=== PATIENT | male | born 1955 | race Caucasian/White ===

== ENCOUNTER 2016-07-02 14:00 | Inpatient (IN) | payer OTHER ==
--- NOTE | 2016-07-02 14:04 | PDOC ---
History of Present Illness - General History Source: Patient, Old Records Exam Limitations: No Limitations <Grace Mott - Last Filed: 07/02/16 16:08> <Arnaldo Drake - Last Filed: 07/02/16 16:43> - General Chief Complaint: Palpitations Stated Complaint: FAST HEART BEAT Time Seen by Provider: 07/02/16 14:04 - History of Present Illness Initial Comments: 07/02/16 14:26 The patient is a 61 old male, with a significant past medical history of anemia , COPD, HTN, hyperlipidemia, diabetes, CAD s/p open heart surgery, stent placement, bypass surgery, pacemaker, and ESRD (on dialysis , , Sat), who presents to the emergency department with right sided chest pressure, palpitations, and SOB since yesterday. The patient states that his symptoms began while he was at dialysis yesterday. He also admits to some generalized weakness and reports that he feels dizzy. The patient denies fever, chills, headache, diaphoresis, nausea or vomiting. Allergies: None reported. Past Surgical History: Stent placement , Open heart surgery, Bypass surgery, Cholecystectomy. Social History: Non smoker. Denies alcohol or drug use. PCP: Dr. Sutton Gis Professor: At [facility] (Grace Mott) Past History <Grace Mott - Last Filed: 07/02/16 16:08> - Past Medical History Anemia: Yes Asthma: Yes (HX BRONCHITIS, COPD) Cancer: No Cardiac Disorders: Yes (S/P open heart SX c/ bypass, stent placement) CVA: Yes (no residual) COPD: No CHF: Yes (CAD) Dementia: No Diabetes: Yes (DIABETES TYPE 2) Dialysis: Yes (SUN-WED SUN) GI Disorders: Yes (reflux) Disorders: Yes (ESRD-DIALYSIS ES,,SAT) HTN: Yes Hypercholesterolemia: Yes Liver Disease: No Suicide Attempt (Hx): No Seizures: No Thyroid Disease: No - Surgical History Abdominal Surgery: Yes Appendectomy: No Cardiac Surgery: Yes (Stent placement, Open heart SX, BYpass SX) Cholecystectomy: Yes Lung Surgery: No Neurologic Surgery: No Orthopedic Surgery: No - Immunization History Td Vaccination: Yes Immunization Up to Date: Yes - Psycho/Social/Smoking Cessation Hx Anxiety: Yes Suicidal Ideation: No Smoking Status: No Smoking History: Never smoked Years of Tobacco Use: 0 Have you smoked in the past 12 months: No Number of Cigarettes Smoked Daily: 0 Cigars Per Day: 0 Hx Alcohol Use: No Drug/Substance Use Hx: No Substance Use Type: None Hx Substance Use Treatment: No <Arnaldo Drake - Last Filed: 07/02/16 16:43> - Past Medical History Allergies/Adverse Reactions: Allergies Allergy/AdvReac Type Severity Reaction Status Date / Time No Known Drug Allergies Allergy Verified 04/27/16 10:25 Home Medications: Ambulatory Orders Insulin Glargine,Hum.rec.anlog [Lantus (10mL VIAL) -] 12 units SQ HS 09/13/14 Levothyroxine [Synthroid -] 75 mcg PO DAILY 09/13/14 Carvedilol 6.25 mg PO BID 04/27/16 Sodium Chloride Tablet - 650 mg PO DAILY 04/27/16 Sucroferric Oxyhydroxide [Velphoro] 500 mg PO TID 04/27/16 Midodrine HCl 5 mg PO BID #0 04/29/16 Sevelamer Carbonate [Renvela -] 1,600 mg PO TIDCM tab 04/29/16 Cardiac Specific PMH - Complaint Specific PMHX Pacemaker: Yes <Arnaldo Drake - Last Filed: 07/02/16 16:43> Review of Systems - Review of Systems Able to Perform ROS?: Yes Constitutional: Yes: Weakness HEENTM: No: Symptoms Reported, See HPI, Eye Pain, Blurred Vision, Tearing, Recent change in vision, Double Vision, Cataracts, Ear Pain, Ocular Prothesis, Ear Discharge, Nose Pain, Nose Congestion, Tinnitus, Nose Bleeding, Hearing Loss , Throat Pain, Throat Swelling, Mouth Pain, Dental Problems, Difficulty Swallowing, Mouth Swelling, Other Respiratory: Yes: Shortness of Breath Cardiac (ROS): Yes: Palpitations, Other (Right sided chest pressure) ABD/GI: No: Symptoms Reported, See HPI, Abdominal Distended, Abd. Pain w/ defecation, Blood Streaked Bowels, Constipated, Diarrhea, Difficulty Swallowing , Nausea, Poor Appetite, Poor Fluid Intake, Rectal Bleeding, Vomiting, Indigestion, Abdominal cramping, Tarry Stools, Other : No: Symptoms Reported, See HPI, Burning, Dysuria, Discharge, Frequency, Flank Pain, Hematuria, Incontinence, Pain, Urgency, Testicular Mass, Testicular Swelling, Lesions, Testicular Pain, Other Musculoskeletal: No: Symptoms Reported, See HPI, Back Pain, Gout, Joint Pain, Joint Swelling, Muscle Pain, Muscle Weakness, Neck Pain, Joint Stiffness, Other Integumentary: No: Symptoms Reported, See HPI, Bruising, Change in Color, Change in Hair/Nails, Dryness, Erythema, Flushing, Lesions, Lumps, Pallor, Pruritus, Rash, Sweating, Other Neurological: Yes: Dizziness Psychiatric: No: Anxiety, Depression, Frequent Crying, Stressors, Sleep Pattern Change, Emotional Problems, Mood Swings, Change in Appetite, Other Endocrine: No: Symptoms Reported, See HPI, Excessive Sweating, Flushing, Intolerance to Cold, Intolerance to Heat, Increased Hunger, Increased Thirst, Increased Urine, Unexplained Weight Gain, Unexplained Weight Loss, Change in Weight, Other Hematologic/Lymphatic: No: Symptoms Reported, See HPI, Anemia, Blood Clots, Easy Bleeding, Easy Bruising, Bleeding Diathesis, Lymph Node Abnormalities, Swollen Glands, Other All Other Systems: Reviewed and Negative <Grace Mott - Last Filed: 07/02/16 16:08> *Physical Exam - Physical Exam General Appearance: Yes: Nourished, Appropriately Dressed HEENT: positive: EOMI, DINAH, Normal ENT Inspection, Normal Voice, Symmetrical, TMs Normal, Pharynx Normal Neck: positive: Trachea midline, Supple Respiratory/Chest: positive: Lungs Clear, Normal Breath Sounds Cardiovascular: positive: Tachycardia, Irregularly Irregular Gastrointestinal/Abdominal: positive: Other (Ascites. Umbilical hernia and diastasis recti noted.) Musculoskeletal: positive: Normal Inspection Extremity: positive: Normal Capillary Refill, Normal Inspection, Normal Range of Motion, Pelvis Stable Integumentary: positive: Normal Color, Dry, Warm Neurologic: positive: assistant pressman II-XII NML intact, Fully Oriented, Alert, Normal Mood/ Affect, Normal Response, Motor Strength 5/5 <Grace Mott - Last Filed: 07/02/16 16:08> - Vital Signs Last Vital Signs Temp Pulse Resp BP Pulse Ox 98.1 F 115 H 21 111/68 100 07/02/16 14:02 07/02/16 14:02 07/02/16 14:02 07/02/16 14:02 07/02/16 14:02 Heart Score/ECG Review #1 ECG reviewed & interpreted by me at: 14:00 (Vent Rate: 109 bpm. Atrial fibrillation with rapid ventricular response with premature aberrantly conducted complexes. Left axis deviation. Right bundle branch block. Septal farct, age undetermined. T wave abnormality, consider lateral ischemia or digitalis effect. Unchanged from prior EKG (02/09/2016). ) <Grace Mott - Last Filed: 07/02/16 16:08> ED Treatment Course - LABORATORY CBC & Chemistry Diagram: 07/02/16 14:40 07/02/16 14:40 <Grace Mott - Last Filed: 07/02/16 16:08> - LABORATORY CBC & Chemistry Diagram: 07/02/16 14:40 07/02/16 14:40 <Arnaldo Drake - Last Filed: 07/02/16 16:43> - ADDITIONAL ORDERS Additional order review: Laboratory Results 07/02/16 07/02/16 14:40 14:40 Sodium 138 Potassium 3.8 D Chloride 97 L Carbon Dioxide 25 D Anion Gap 16 BUN 48 H D Creatinine 6.6 H D Creat Clearance w eGFR 8.58 Random Glucose 237 H D Calcium 9.0 Total Bilirubin 0.4 D AST 20 D ALT 19 D Alkaline Phosphatase 81 D Creatine Kinase 28 L Troponin I 0.07 D Total Protein 8.1 Albumin 4.0 07/02/16 14:40 RBC 3.77 L MCV 91.3 MCHC 32.1 RDW 15.9 MPV 8.8 Neutrophils % 74.8 Lymphocytes % 8.9 Monocytes % 12.1 H Eosinophils % 3.9 Basophils % 0.3 - RADIOLOGY Radiology Studies Ordered: Category Date Time Status CHEST X-RAY PORTABLE* [RAD] Stat Radiology 07/02/16 14:11 Completed - Medications Given in the ED: ED Medications Discontinued Medications Generic Name Dose Route Start Last Admin Trade Name Freq PRN Reason Stop Dose Admin Acetaminophen 650 mg 07/02/16 15:48 07/02/16 15:52 Tylenol - PO 07/02/16 15:49 650 mg ONCE ONE Administration Progress Note <Grace Mott - Last Filed: 12/25/16 16:08> <Arnaldo Drake - Last Filed: 07/02/16 16:43> - Progress Note Progress Note: CXR shows defibrillator and unchanged Spoke with Hospitalist Dr. Lind will admit to observation/Telemetry Hospitalist will contact Gis Professor to see pt Spoke with Dr. Rubin covering for Dr. Sutton, wants pt admitted to observation Pt in agreement with plan (Arnaldo Drake) Medical Decision Making <Grace Mott - Last Filed: 07/02/16 16:08> <Arnaldo Drake - Last Filed: 07/02/16 16:43> - Medical Decision Making 07/02/16 14:56 EXAM: RAD/CHEST X-RAY PORTABLE Reviewed By: Dr. Arnaldo Nuno IMPRESSION: No significant change from prior study (04/27/2016). Called patient's PCP, Dr. Sutton, at Office at 15:58. Referred to answering service. Dr. Ochoa returned call at 16:01, case discussed. (Grace Mott) *DC/Admit/Observation/Transfer <Grace Mott - Last Filed: 07/02/16 16:08> - Discharge Dispostion Admit: Yes <Arnaldo Drake - Last Filed: 07/02/16 16:43> Diagnosis at time of Disposition: Atrial fibrillation with rapid ventricular response, ESRD (end stage renal disease) - Discharge Dispostion Condition at time of disposition: Good - Referrals Referrals: Mandeep Sutton MD [Primary Care Provider] - - Attestations Scribe Attestion: 07/02/16 14:15 Documentation prepared by Grace Mott, acting as chief medical director for Arnaldo Drake MD/DO. (Grace Mott)
[2016-07-02 15:04] LABS: BASOPHIL 0.3 % (0-2.0); EOSINOPHIL 3.9 % (0-4.5); MCH 29.3 pg (25.7-33.7); MCHC 32.1 g/dl (32.0-35.9); MEAN CELL VOLUME 91.3 fl (80-96); MEAN PLT VOLUME 8.8 fl (7.5-11.1); NEUTROPHILS 74.8 % (42.8-82.8); PLATELET COUNT 70 K/MM3 (134-434); RDW 15.9 % (11.9-15.9); WHITE BLOOD COUNT 3.7 K/mm3 (4.0-10.0)
[2016-07-02 15:15] LABS: BILIRUBIN,TOTAL 0.4 mg/dl (0.2-1.0); CREATININE 6.6 mg/dl (0.6-1.3); TOT PROT 8.1 g/dl (6.4-8.3)
[2016-07-02 15:48] LABS: TROPONIN I (DFP) 0.07 ng/ml (0.03-0.50)
[2016-07-02] MEDS ORDERED: ACETAMINOPHEN 325 MG TABLET (FP) PO ONE (15:48)
[2016-07-02] MEDS ORDERED: ACETAMINOPHEN 325 MG TABLET (FP) ONE (15:50)
[2016-07-02] MEDS ORDERED: dilTIAZem HCL 30 MG TABLET (FP) PO ONE (18:26)
[2016-07-02] MEDS: MIDODRINE HCL 5 MG TABLET PO SCH (21:50)
[2016-07-02] MEDS ORDERED: INSULIN DETEMIR 100 UNITS/ML MDV SQ SCH (22:00)
[2016-07-02] MEDS ORDERED: SUCROFERRIC OXYHYDROXIDE 500 MG PO SCH (22:00)
[2016-07-02] MEDS ORDERED: CARVEDILOL 6.25 MG TABLET (FP) PO SCH (22:00)
[2016-07-02] MEDS ORDERED: ACETAMINOPHEN 325 MG TABLET (FP) PO PRN (22:24)
[2016-07-02] MEDS ORDERED: oxyCODONE HCL 5 MG TABLET PO ONE (23:50)
[2016-07-02] MEDS ORDERED: OXYCODONE/APAP 5/325MG COMBO TABLET PO PRN (23:50)
--- NOTE | 2016-07-02 23:56 | HP ---
CHIEF COMPLAINT: generalized weakness PCP: Herman, ED spoke with covering physician, requested hospitalist admit. cardiology Dr. Booth [phone] HISTORY OF PRESENT ILLNESS: This is a 61 year old male with a past medical history of anemia, COPD, HTN, HLD , DM, CVA, CAD s/p stent and CABG, PPM, ESRD who presented to the ED for generalized weakness, palpitations, R sided chest pressure and SOB for the past few days. Also had a syncopal episode 3d ago, became very weak during dialysis on and asked it to be terminated after 2-2.5h. Tolerated dialysis yesterday but was not feeling well. Upon exam pt with c/o generalized body aches. He states that this happens at times and he takes oxycodone 5/325 for it. ER course was notable for: (1) atrial fibrillation rate 110s (2) normal troponin (3) no changes on CXR Recent Travel: pt denies PAST MEDICAL HISTORY: anemia COPD HTN HLD DM with retinopathy CVA-no residual CAD s/p stent and CABG PPM/AICD ESRD PAST SURGICAL HISTORY: AV shunt right upper arm Social History: Smoking: Pt denies Alcohol: Pt denies Drugs: Pt denies Family History: mother age 65, unknown father age 85, old age, prostate CA Allergies No Known Drug Allergies Allergy (Verified 04/27/16 10:25) HOME MEDICATIONS: 3 Medication Instructions Recorded Insulin Glargine,Hum.rec.anlog 12 units SQ HS 09/13/14 [Lantus (10mL VIAL) -] Levothyroxine [Synthroid -] 75 mcg PO DAILY 09/13/14 Carvedilol 6.25 mg PO BID 04/27/16 Sodium Chloride Tablet - 650 mg PO DAILY 04/27/16 Sucroferric Oxyhydroxide [Velphoro] 500 mg PO TID 04/27/16 Midodrine HCl 5 mg PO BID #0 04/29/16 Sevelamer Carbonate [Renvela -] 1,600 mg PO TIDCM tab 04/29/16 REVIEW OF SYSTEMS CONSTITUTIONAL: Present: generalized weakness, malaise Absent: fever, chills, diaphoresis, loss of appetite, weight change HEENT: Absent: rhinorrhea, nasal congestion, throat pain, throat swelling, difficulty swallowing, mouth swelling, ear pain, eye pain, visual changes CARDIOVASCULAR: Present: chest pain, syncope, palpitations, irregular heart rate Absent: lightheadedness, peripheral edema RESPIRATORY: Present: shortness of breath, dyspnea with exertion Absent: cough, orthopnea, wheezing, stridor, hemoptysis GASTROINTESTINAL: Absent: abdominal pain, abdominal distension, nausea, vomiting, diarrhea, constipation, melena, hematochezia GENITOURINARY: Absent: dysuria, frequency, urgency, hesitancy, hematuria, flank pain, genital pain MUSCULOSKELETAL: Absent: myalgia, arthralgia, joint swelling, back pain, neck pain SKIN: Absent: rash, itching, pallor HEMATOLOGIC/IMMUNOLOGIC: Absent: easy bleeding, easy bruising, lymphadenopathy, frequent infections ENDOCRINE: Absent: unexplained weight gain, unexplained weight loss, heat intolerance, cold intolerance NEUROLOGIC: Absent: headache, focal weakness or paresthesias, dizziness, unsteady gait, seizure, mental status changes, bladder or bowel incontinence PSYCHIATRIC: Absent: anxiety, depression, suicidal or homicidal ideation, hallucinations. PHYSICAL EXAMINATION Vital Signs - 24 hr 3 07/02/16 07/02/16 07/02/16 18:05 18:19 18:24 Temperature 98.2 F Pulse Rate 140 H 132 H 122 H Respiratory 18 Rate Blood Pressure 110/62 O2 Sat by Pulse Oximetry (%) 3 07/02/16 21:54 Temperature 97.7 F Pulse Rate 94 H Respiratory 20 Rate Blood Pressure 106/56 O2 Sat by Pulse 98 Oximetry (%) GENERAL: Awake, alert, and fully oriented, in no acute distress. HEAD: Normal with no signs of trauma. EYES: Pupils equal, round and reactive to light, extraocular movements intact left, sclera anicteric, conjunctiva clear. No lid lag. lazy eye noted right EARS, NOSE, THROAT: Ears normal, nares patent, oropharynx clear without exudates. Moist mucous membranes. NECK: Normal range of motion, supple without lymphadenopathy, JVD, or masses. LUNGS: Breath sounds equal, clear to auscultation bilaterally. No wheezes, and no crackles. No accessory muscle use. HEART:irregular rate and rhythm, normal S1 and S2 without rub or gallop. + murmur 5th ICS MCL ABDOMEN: Soft, nontender, distended, normoactive bowel sounds, no guarding, no rebound, no masses. No hepatomegaly or splenomegaly. + ?ascites MUSCULOSKELETAL: Normal range of motion at all joints. No bony deformities or tenderness. No CVA tenderness. UPPER EXTREMITIES: 2+ pulses, warm, well-perfused. No cyanosis. No clubbing. Cap refill <2 seconds. No peripheral edema. LOWER EXTREMITIES: 2+ pulses, warm, well-perfused. No calf tenderness. No peripheral edema. NEUROLOGICAL: Cranial nerves II-XII intact. Normal speech. Normal gait. PSYCHIATRIC: Cooperative. Good eye contact. Appropriate mood and affect. SKIN: Warm, dry, normal turgor, no rashes or lesions noted. Laboratory Results - last 24 hr 3 07/02/16 07/02/16 07/02/16 14:40 14:40 14:40 WBC 3.7 L D RBC 3.77 L Hgb 11.1 L Hct 34.4 L MCV 91.3 MCHC 32.1 RDW 15.9 Plt Count 70 L MPV 8.8 Neutrophils % 74.8 Lymphocytes % 8.9 Monocytes % 12.1 H Eosinophils % 3.9 Basophils % 0.3 Sodium 138 Potassium 3.8 D Chloride 97 L Carbon Dioxide 25 D Anion Gap 16 BUN 48 H D Creatinine 6.6 H D Creat Clearance w eGFR 8.58 POC Glucometer Random Glucose 237 H D Calcium 9.0 Total Bilirubin 0.4 D AST 20 D ALT 19 D Alkaline Phosphatase 81 D Creatine Kinase 28 L Troponin I 0.07 D B-Natriuretic Peptide 32978.45 H Total Protein 8.1 Albumin 4.0 3 07/02/16 21:26 WBC RBC Hgb Hct MCV MCHC RDW Plt Count MPV Neutrophils % Lymphocytes % Monocytes % Eosinophils % Basophils % Sodium Potassium Chloride Carbon Dioxide Anion Gap BUN Creatinine Creat Clearance w eGFR POC Glucometer 281 Random Glucose Calcium Total Bilirubin AST ALT Alkaline Phosphatase Creatine Kinase Troponin I B-Natriuretic Peptide Total Protein Albumin echo 04/28/16 with LV systolic fxn mod / severely reduced; akinesis of basal and mid anteroseptum, apical anterior and apical inferior mustafa; L atrium moderately dilated; mil to mod mitral annular calcification, mild mitral regurgitaion, mod tricuspid regurg, RV systolic pressure elevated; mild aortic sclerosis. ECG: afib with RVR, RBB, nonspecifec ST/T wave abnormality, QTC 452 CXR: Impression: no significant change ASSESSMENT/PLAN: 61yM with a past medical history of anemia, COPD, HTN, HLD, DM, CVA, CAD s/p stent and CABG, PPM, ESRD who presented to the ED for generalized weakness, palpitations, R sided chest pressure and SOB for the past few days. He was noted to be in new onset afib with RVR in the ED. He is being admitted for further treatment and monitoring. New onset atrial fibrillation - cardizem 30mg given po x 1 with some decline in HR, start 30mg Q8H, hold if SBP less than 100 - cont home coreg - [employer] contacted for AICD interrogation. Spoke with garry Heard who will come around 830am - cardiology consult - serial cardiac enzymes, neg x 1 Abd distention - sono done 04/2016: ascites, heterogeneous liver and splenomegaly c/w advanced hepatocellular disease - f/u as outpatient with PMD CAD/CHF - cont home medication - cardiology consult HTN - cont home coreg. Monitor BP closely with addition of cardizem DM - BGM TID AC HS DVT PPX - heparin 5000u TID FEN - defer IVF, pt is ESRD - repeat BMP in am - renal diet Dispo: Pt currently requires inpatient hospitalization for management of his emergent condition. Addendum: 3:02AM Pt will need AC for new onset atrial fibrillation. Lovenox contraindicated in ESRD. Will start heparin drip. (DC heparin SC for DVT prophylaxis) Cardiology consult in am for further recommendations. Visit type - Emergency Visit Emergency Visit: Yes ED Registration Date: 07/02/16 Care time: The patient presented to the Emergency Department on the above date and was hospitalized for further evaluation of their emergent condition. - New Patient This patient is new to me today: Yes Date on this admission: 07/02/16 - Critical Care Critical Care patient: No
[2016-07-03] MEDS ORDERED: dilTIAZem HCL 30 MG TABLET (FP) ONE (00:27)
[2016-07-03] MEDS: dilTIAZem HCL 30 MG TABLET (FP) PO SCH ×2 (00:29→05:57)
[2016-07-03] MEDS ORDERED: HEPARIN NA (PORCINE) 5,000 UNITS/ML 1ML VIAL IVPUSH PRN ×6 (02:57→20:24)
[2016-07-03] MEDS ORDERED: HEPARIN - 25,000 UNIT in SODIUM CHLORIDE 495 ML IV SCH (03:00)
[2016-07-03 04:45] LABS: INR 1.11 (0.82-1.09); PROTHROMBIN TIME (PATIENT) 12.2 SEC (9.98-11.88)
[2016-07-03] MEDS ORDERED: HEPARIN INFUSION - 500 ML IVPB ONE (05:35)
[2016-07-03] MEDS ORDERED: HEPARIN NA (PORCINE) 5,000 UNITS/ML 1ML VIAL SQ SCH (06:00)
[2016-07-03] MEDS: INSULIN SLIDING SCALE (NOVOLOG) 1 VIAL SQ SCH ×3 (06:26→17:45)
[2016-07-03] MEDS ORDERED: LEVOTHYROXINE NA 75 MCG TABLET (FP) PO SCH (07:00)
[2016-07-03] MEDS: SEVELAMER CARBONATE 800 MG TAB (FP) PO SCH ×3 (07:41→17:54)
--- NOTE | 2016-07-03 08:07 | PN ---
Physical Exam: SUBJECTIVE: Patient seen and examined OBJECTIVE: Vital Signs Period Temp Pulse Resp BP Sys/Lopez Pulse Ox Last 24 Hr 97.7 F-98.5 F 79-140 17-20 92-110/50-62 98-100 GENERAL: The patient is awake, alert, and fully oriented, in no acute distress. HEAD: Normal with no signs of trauma. EYES: PERRL, extraocular movements intact, sclera anicteric, conjunctiva clear. No ptosis. ENT: Ears normal, nares patent, oropharynx clear without exudates, moist mucous membranes. NECK: Trachea midline, full range of motion, supple. LUNGS: Breath sounds equal, clear to auscultation bilaterally, no wheezes, no crackles, no accessory muscle use. HEART: Regular rate and rhythm, S1, S2 without murmur, rub or gallop. ABDOMEN: Soft, nontender, nondistended, normoactive bowel sounds, no guarding, no rebound, no hepatosplenomegaly, no masses. EXTREMITIES: 2+ pulses, warm, well-perfused, no edema. NEUROLOGICAL: Cranial nerves II through XII grossly intact. Normal speech, gait not observed. PSYCH: Normal mood, normal affect. SKIN: Warm, dry, normal turgor, no rashes or lesions noted Laboratory Results - last 24 hr 07/02/16 07/03/16 07/03/16 21: 00:51 03:20 INR PTT (Actin FS) POC Glucometer 281 Troponin I 0.07 H D Stool Occult Blood Trace 07/03/16 07/03/16 07/03/16 03:20 03:26 06:15 INR 1.11 PTT (Actin FS) 30.0 POC Glucometer 160 Troponin I Stool Occult Blood Active Medications Generic Name Dose Route Start Last Admin Trade Name Freq PRN Reason Stop Dose Admin Acetaminophen 650 mg 07/02/16 22:24 07/02/16 21:40 Tylenol - PO 650 mg Q4H PRN Administration FEVER OR PAIN Carvedilol 6.25 mg 07/02/16 22:00 07/02/16 21:31 Coreg - PO 6.25 mg BID RACHEL Administration Diltiazem HCl 30 mg 07/03/16 00:30 07/03/16 05:57 Cardizem - PO Not Given TID [facility] Heparin Sodium (Porcine) 1,000 unit 07/03/16 02:57 Heparin - IVPUSH PRN PRN Heparin Heparin Sodium (Porcine) 5,000 unit 07/03/16 02:57 Heparin - IVPUSH PRN PRN Heparin Heparin Sodium (Porcine) 25, 500 mls @ 20 mls/hr 07/03/16 03:00 07/03/16 05:50 000 unit/ Sodium Chloride IV 20 mls/hr TITR [facility] Administration Protocol 1,000 UNIT/HR Insulin Aspart 1 vial 07/03/16 07:00 07/03/16 06:26 Novolog Vial Sliding Scale - SQ 2 units TIDAC [facility] Administration Protocol Insulin Detemir 12 units 07/02/16 22:00 07/02/16 21:31 Levemir Vial SQ 12 units HS [facility] Administration Levothyroxine Sodium 75 mcg 07/03/16 07:00 07/03/16 06:25 Synthroid - PO 75 mcg DAILY@0700 [facility] Administration Midodrine 5 mg 07/02/16 22:00 07/02/16 21:50 Proamatine - PO 5 mg BID [facility] Administration Non-Formulary Medication 500 mg 07/02/16 22:00 Sucroferric Oxyhydroxide [Velphoro] PO TID [facility] Oxycodone/Acetaminophen 1 combo 07/02/16 23:50 07/03/16 05:57 Percocet 5/325 - PO 1 combo Q6H PRN Administration PAIN LEVEL 6-10 Sevelamer Carbonate 1,600 mg 07/03/16 08:00 07/03/16 07:41 Renvela - PO 1,600 mg TIDCM [facility] Administration ASSESSMENT/PLAN:
--- NOTE | 2016-07-03 08:13 | PN ---
Physical Exam: SUBJECTIVE: Patient seen and examined. OBJECTIVE: Vital Signs Period Temp Pulse Resp BP Sys/Lopez Pulse Ox Last 24 Hr 97.7 F-98.5 F 79-140 17-20 92-110/50-62 98-100 GENERAL: The patient is awake, alert, and fully oriented, in no acute distress. HEAD: Normal with no signs of trauma. EYES: PERRL, extraocular movements intact, sclera anicteric, conjunctiva clear. No ptosis. LUNGS: Breath sounds equal, clear to auscultation bilaterally, no wheezes, no crackles, no accessory muscle use. HEART: Irregular, S1, S2 without murmur, rub or gallop. ABDOMEN: Soft, nontender, mildly distended EXTREMITIES: 2+ pulses, warm, well-perfused, no edema. RUE: AV fistula + thrill +bruit NEUROLOGICAL: Cranial nerves II through XII grossly intact. Normal speech, gait not observed. Laboratory Results - last 24 hr 07/02/16 07/03/16 07/03/16 21:26 00:51 03:20 INR PTT (Actin FS) POC Glucometer 281 Troponin I 0.07 H D Stool Occult Blood Trace 07/03/16 07/03/16 07/03/16 03:20 03:26 06:15 INR 1.11 PTT (Actin FS) 30.0 POC Glucometer 160 Troponin I Stool Occult Blood Active Medications Generic Name Dose Route Start Last Admin Trade Name Freq PRN Reason Stop Dose Admin Acetaminophen 650 mg 07/02/16 22:24 07/02/16 21:40 Tylenol - PO 650 mg Q4H PRN Administration FEVER OR PAIN Carvedilol 6.25 mg 07/02/16 22:00 07/02/16 21:31 Coreg - PO 6.25 mg BID RACHEL Administration Diltiazem HCl 30 mg 07/03/16 00:30 07/03/16 05:57 Cardizem - PO Not Given TID RACHEL Heparin Sodium (Porcine) 1,000 unit 07/03/16 02:57 Heparin - IVPUSH PRN PRN Heparin Heparin Sodium (Porcine) 5,000 unit 07/03/16 02:57 Heparin - IVPUSH PRN PRN Heparin Heparin Sodium (Porcine) 25, 500 mls @ 20 mls/hr 07/03/16 03:00 07/03/16 05:50 000 unit/ Sodium Chloride IV 20 mls/hr TITR RACHEL Administration Protocol 1,000 UNIT/HR Insulin Aspart 1 vial 07/03/16 07:00 07/03/16 06:26 Novolog Vial Sliding Scale - SQ 2 units TIDAC RACHEL Administration Protocol Insulin Detemir 12 units 07/02/16 22:00 07/02/16 21:31 Levemir Vial SQ 12 units HS RACHEL Administration Levothyroxine Sodium 75 mcg 07/03/16 07:00 07/03/16 06:25 Synthroid - PO 75 mcg DAILY@0700 RACHEL Administration Midodrine 5 mg 07/02/16 22:00 07/02/16 21:50 Proamatine - PO 5 mg BID RACHEL Administration Non-Formulary Medication 500 mg 07/02/16 22:00 Sucroferric Oxyhydroxide [Velphoro] PO TID RACHEL Oxycodone/Acetaminophen 1 combo 07/02/16 23:50 07/03/16 05:57 Percocet 5/325 - PO 1 combo Q6H PRN Administration PAIN LEVEL 6-10 Sevelamer Carbonate 1,600 mg 07/03/16 08:00 07/03/16 07:41 Renvela - PO 1,600 mg TIDCM RACHEL Administration ASSESSMENT/PLAN: 61 year-old male with a PMH of HTN, HLD, CAD s/p stent s/p CABG s/p PPM/AICD ( [facility]), systolic and diastolic heart failure, CVA, COPD, IDDM, ESRD (T, , ) and anemia. Admitted for afib with RVR. 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 Morillo is on vacation --nephrololgy consult Dr. Amezcua requested CAD s/p stent s/p CABG s/p PPM/AICD Systolic and diastolic heart failure --04/08/16 echo: LV systolic fxn mod / severely reduced; akinesis of basal and mid anteroseptum, apical anterior and apical inferior mustafa; L atrium moderately dilated; mil to mod mitral annular calcification, mild mitral regurgitaion, mod tricuspid regurg, RV systolic pressure elevated; mild aortic sclerosis. --PPM/AICD interrogated this morning by [employer]; VVI paced @ 40; last firing 06/26/16 HR reached 286 bpm --spole with Dr. 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 Full Code. Visit type - Emergency Visit Emergency Visit: Yes ED Registration Date: 07/02/16 Care time: The patient presented to the Emergency Department on the above date and was hospitalized for further evaluation of their emergent condition. - New Patient This patient is new to me today: Yes Date on this admission: 07/03/16 - Critical Care Critical Care patient: Yes Total Critical Care Time (in minutes): 85 Critical Care Statement: The care of this patient involved high complexity decision making to prevent further life threatening deterioration of the patient 's condition and/or to evalute & treat vital organ system(s) failure or risk of failure.
[2016-07-03] MEDS ORDERED: SODIUM CHLORIDE 1 GM TABLET PO SCH (10:00)
[2016-07-03] MEDS ORDERED: METOPROLOL TARTRATE 25 MG TABLET (FP) PO SCH (10:00)
[2016-07-03] MEDS ORDERED: PT OWN MED DRAWER 7, Y5N ONE ×2 (10:07→21:49)
[2016-07-03] MEDS: MIDODRINE HCL 5 MG TABLET PO SCH (10:08)
[2016-07-03] MEDS: METOPROLOL TARTRATE 25 MG TABLET (FP) PO SCH ×2 (10:18→12:10)
[2016-07-03 12:32] LABS: BASOPHIL 0.6 % (0-2.0); EOSINOPHIL 4.9 % (0-4.5); MCH 29.4 pg (25.7-33.7); MCHC 32.2 g/dl (32.0-35.9); MEAN CELL VOLUME 91.5 fl (80-96); MEAN PLT VOLUME 8.6 fl (7.5-11.1); NEUTROPHILS 73.8 % (42.8-82.8); PLATELET COUNT 77 K/MM3 (134-434); RDW 15.4 % (11.9-15.9); WHITE BLOOD COUNT 4.7 K/mm3 (4.0-10.0)
[2016-07-03 12:37] LABS: CALCIUM 8.5 mg/dl (8.4-10.2)
[2016-07-03 12:49] LABS: ALBUMIN 3.6 g/dl (3.5-5.0); BILIRUBIN,TOTAL 0.4 mg/dl (0.2-1.0); MAGNESIUM 2.3 mg/dL (1.8-2.4); PHOSPHOROUS 7.7 mg/dl (2.5-4.6)
[2016-07-03 12:51] LABS: CREATININE 8.3 mg/dl (0.6-1.3)
--- NOTE | 2016-07-03 14:10 | EKG ---
Test Reason : Blood Pressure : / mmHG Vent. Rate : 090 BPM Atrial Rate : 120 BPM P-R Int : 000 ms QRS Dur : 162 ms QT Int : 420 ms P-R-T Axes : 000 -87 -87 degrees QTc Int : 513 ms ATRIAL FIBRILLATION LEFT AXIS DEVIATION RIGHT BUNDLE BRANCH BLOCK CANNOT RULE OUT ANTEROSEPTAL INFARCT (CITED ON OR BEFORE 09-FEB-2016) T WAVE ABNORMALITY, CONSIDER INFEROLATERAL ISCHEMIA OR DIGITALIS EFFECT ABNORMAL ECG WHEN COMPARED WITH ECG OF 09-FEB-2016 13:07, NO SIGNIFICANT CHANGE WAS FOUND Confirmed by JEAN CARLOS SCHOFIELD MD ([id number] on 07/03/2016 2:09:37 PM Referred By: MD VALENCIA Overread By: JEAN CARLOS SCHOFIELD MD
[2016-07-03] MEDS ORDERED: ASPIRIN 325 MG ENTERIC COATED TABLET (FP) PO ONE (14:15)
--- NOTE | 2016-07-03 14:42 | CONSULT ---
Consult Consult Specialty:: Cardiology Referred by:: Hospitalist Medicine Reason for Consultation:: Rapid afib - History of Present Illness Chief Complaint: Rapid afib History of Present Illness: This is a 61 year old male with a past medical history of anemia, COPD, HTN, HLD , DM, CVA, CAD s/p stent and CABG, ischemic cardiomyopathy s/p Medtr[employer] ICD, ESRD on HD presented to the ED for generalized weakness, palpitations, R sided chest pressure and SOB for the past few days. He also experienced syncopal episode 06/26/2016 corresponding to VT/VF for which he failed burst pacing and subsequently received appropriate shock. He felt very weak during dialysis on and asked it be terminated after 2-2.5h. Tolerated dialysis yesterday but was not feeling well, found to be in rapid afib 130s, ICD interrogation confirms afib for last 6 days, elevated trops noted c/w demand ischemia post ICD discharge, reports orthopnea without PND or LE edema, does not urinate. Sees Dr. Zachery Mccormick of [facility], last stress test 2015 as outpatient, reports medication compliance. - History Source History Provided By: Patient, Family Member Limitations to Obtaining History: No Limitations - Past Medical History Cardio/Vascular: Yes: CHF Pulmonary: Yes: Other (h/o MARIAN in lungs-not treated) Gastrointestinal: Yes: Other (cirrhosis-based on GONG likely) Renal/: Yes: Renal Failure Psych: Yes: Anxiety Endocrine: Yes: Diabetes Mellitus (IDDM), Hypothyroidism - Past Surgical History Past Surgical History: Yes: AICD (PPM), AV Fistula/Graft, CABG (3 vessel in 2009 ), Cholecystectomy (2006) - Alcohol/Substance Use Hx Alcohol Use: No History of Substance Use: reports: None - Smoking History Smoking history: Never smoked Have you smoked in the past 12 months: No Aproximately how many cigarettes per day: 0 - Social History Usual Living Arrangement: With Spouse ADL: Independent Home Medications - Allergies Allergies/Adverse Reactions: Allergies Allergy/AdvReac Type Severity Reaction Status Date / Time No Known Drug Allergies Allergy Verified 04/27/16 10:25 - Home Medications Home Medications: Ambulatory Orders Insulin Glargine,Hum.rec.anlog [Lantus (10mL VIAL) -] 12 units SQ HS 09/13/14 Levothyroxine [Synthroid -] 75 mcg PO DAILY 09/13/14 Carvedilol 6.25 mg PO BID 04/27/16 Sodium Chloride Tablet - 650 mg PO DAILY 04/27/16 Sucroferric Oxyhydroxide [Velphoro] 500 mg PO TID 04/27/16 Midodrine HCl 5 mg PO BID #0 04/29/16 Sevelamer Carbonate [Renvela -] 1,600 mg PO TIDCM tab 04/29/16 Review of Systems - Review of Systems Cardiovascular: reports: Chest Pain, Palpitations, Shortness of Breath Respiratory: reports: Orthopnea Neurological: reports: Dizziness - Risk Factors Known Risk Factors: Yes: Hypertension, Prior SC /Emb Stroke Vital Signs: Vital Signs Temperature 97.5 F L 07/03/16 14:27 Pulse Rate 87 07/03/16 14:27 Respiratory Rate 18 07/03/16 14:27 Blood Pressure 112/54 07/03/16 14:27 O2 Sat by Pulse Oximetry (%) 100 07/03/16 14:27 Constitutional: Yes: No Distress, Calm, Thin Neck: Yes: Supple Respiratory: Yes: Regular, Diminished Gastrointestinal: Yes: Normal Bowel Sounds, Soft Cardiovascular: Yes: Tachycardia, Pulse Irregular JVD: No Carotid Bruit: No Heart Sounds: Yes: S1, S2 Murmur: Yes: Systolic Murmur, Grade 2 Edema: No - Other Data Labs, Other Data: CBC, BMP 07/03/16 11:56 07/03/16 11:56 INR, PTT INR 1.11 (0.82-1.09) 07/03/16 03:20 Troponin, BNP 07/03/16 07/03/16 07/03/16 00:51 09:10 11:56 Troponin I 0.07 H D 0.06 H 2.33 H* D Troponin, BNP 07/03/16 07/03/16 07/03/16 00:51 09:10 11:56 Troponin I 0.07 H D 0.06 H 2.33 H* D Afib @ 109 RBBB, LAD c/w previous now in rapid afib Echo: Report Reviewed Prior Cardiac Procedures: CABG, PTCA with Stent Ejection Fraction %: LVEF < 40 % Imaging - Results Chest X-ray: Report Reviewed (NAD) Problem List - Problems (1) Atrial fibrillation with rapid ventricular response Code(s): I48.91 - UNSPECIFIED ATRIAL FIBRILLATION (2) Cirrhosis Code(s): K74.60 - UNSPECIFIED CIRRHOSIS OF LIVER Qualifiers: Hepatic cirrhosis type: unspecified hepatic cirrhosis Ascites presence : with ascites Qualified Code(s): K74.60 - Unspecified cirrhosis of liver (3) Coronary artery disease Code(s): I25.10 - ATHSCL HEART DISEASE OF [place] CORONARY ARTERY W/O ANG PCTRS Qualifiers: Coronary Disease-Associated Artery/Lesion type: [place] artery [place] vs. transplanted heart: [place] heart Associated angina: with stable angina Qualified Code(s): I25.119 - Atherosclerotic heart disease of [place] coronary artery with unspecified angina pectoris (4) Diabetes mellitus Code(s): E11.9 - TYPE 2 DIABETES MELLITUS WITHOUT COMPLICATIONS Qualifiers: Diabetes mellitus type: type 1 Diabetes mellitus complication status: with kidney complications Diabetes mellitus complication detail: with chronic kidney disease Chronic kidney disease stage: on chronic dialysis Qualified Code(s): E10.22 - Type 1 diabetes mellitus with diabetic chronic kidney disease; N18.1 - Chronic kidney disease, stage 1 (5) ESRD (end stage renal disease) Code(s): N18.6 - END STAGE RENAL DISEASE (6) HTN (hypertension) Code(s): I10 - ESSENTIAL (PRIMARY) HYPERTENSION Qualifiers: Hypertension type: essential hypertension Qualified Code(s): I10 - Essential (primary) hypertension (7) Hypothyroidism Code(s): E03.9 - HYPOTHYROIDISM, UNSPECIFIED Qualifiers: Hypothyroidism type: acquired Qualified Code(s): E03.9 - Hypothyroidism, unspecified (8) ICD (implantable cardioverter-defibrillator) discharge Code(s): Z45.02 - ENCNTR FOR ADJUST AND MGMT OF AUTOMATIC IMPLNTBL CARD DEFIB (9) Ventricular tachycardia Code(s): I47.2 - VENTRICULAR TACHYCARDIA (10) S/P coronary artery stent placement Code(s): Z95.5 - PRESENCE OF CORONARY ANGIOPLASTY IMPLANT AND GRAFT (11) Demand ischemia Code(s): I24.8 - OTHER FORMS OF ACUTE ISCHEMIC HEART DISEASE (12) Ischemic dilated cardiomyopathy Code(s): I25.5 - ISCHEMIC CARDIOMYOPATHY Assessment/Plan Echo 04/28/16 with LV systolic fxn mod / severely reduced; akinesis of basal and mid anteroseptum, apical anterior and apical inferior mustafa; L atrium moderately dilated; mil to mod mitral annular calcification, mild mitral regurgitaion, mod tricuspid regurg, RV systolic pressure elevated; mild aortic sclerosis. sono done 04/2016: ascites, heterogeneous liver and splenomegaly c/w advanced hepatocellular disease 1. Fatigue, weakness, dyspnea, palpitations referable to newly diagnosed persistent atrial fibrillation [id number] 2. Syncope referable to sustained VT/VF post appropriate ICD therapy 3. Ischemic cardiomyopathy s/p [employer]tr[employer] ICD 4. ESRD->HD 5. HTN/HCVD 6. CAD s/p SC, PCI(stent), CABG, demand ischemic injury 7. Hypothyroidism 8. Type 2 DM 9. Thrombocytopenia 10. Advanced liver disease, possible chronic congestion P:1. Cycle cardiac enzymes to document peak 2. Ideally would uptitrate carvedilol, but limited by intradialytic hypotension , add amiodarone 200 bid, check TSH, liver panel 3. Heparin->coumadin per INR with caution given elevated risk score and thrombocytopenia 4. Ideally start losartan 25 qd if hemodynamics tolerate, but currently midodrine dependent 5. Obtain recent nuclear stress test results from Dr. Mccormick office in AM, patient will f/u with him upon d/c 6. Consideration for VT ablation in future, thank you for consultative opportunity
[2016-07-03] MEDS ORDERED: WARFARIN NA 5 MG TABLET (UD) PO ONE (18:00)
--- NOTE | 2016-07-03 20:11 | CONSULT ---
Consult Consult Specialty:: Pulm/CC - History of Present Illness History of Present Illness: Pt is a 61yr old man with PMHx of COPD, HTN, HLD, CAD s/p cardiac stent(s) and CABG, AICD, CHF, CVA, ESRD (on h/d //, anuric), and DM. He presents to the [facility] ER on 07/02 with CC of generalized weakness/palpations and rt side chest pressure with associated SOB x several days. Also of note, pt with syncopal event x1 on 06/29. Pt initially admitted for a-fib with RVR, transferred to the ICU for reported run of v-tach. Labs notable for troponin .07 -->2.3 and bnp [id number]. Upon assessment, pt denies current chest pain/sob/n/v , endorses abdominal pain, constipation and headache. - Past Medical History Cardio/Vascular: Yes: CHF Pulmonary: Yes: Other (h/o MARIAN in lungs-not treated) Gastrointestinal: Yes: Other (cirrhosis-based on GONG likely) Renal/: Yes: Renal Failure Psych: Yes: Anxiety Endocrine: Yes: Diabetes Mellitus (IDDM), Hypothyroidism - Past Surgical History Past Surgical History: Yes: AICD (PPM), AV Fistula/Graft, CABG (3 vessel in 2009 ), Cholecystectomy (2006) - Alcohol/Substance Use Hx Alcohol Use: No History of Substance Use: reports: None - Smoking History Smoking history: Never smoked Have you smoked in the past 12 months: No Aproximately how many cigarettes per day: 0 - Social History Usual Living Arrangement: With Spouse ADL: Independent Home Medications - Allergies Allergies/Adverse Reactions: Allergies Allergy/AdvReac Type Severity Reaction Status Date / Time No Known Drug Allergies Allergy Verified 04/27/16 10:25 - Home Medications Home Medications: Ambulatory Orders Insulin Glargine,Hum.rec.anlog [Lantus (10mL VIAL) -] 12 units SQ HS 09/13/14 Levothyroxine [Synthroid -] 75 mcg PO DAILY 09/13/14 Carvedilol 6.25 mg PO BID 04/27/16 Sodium Chloride Tablet - 650 mg PO DAILY 04/27/16 Sucroferric Oxyhydroxide [Velphoro] 500 mg PO TID 04/27/16 Midodrine HCl 5 mg PO BID #0 04/29/16 Sevelamer Carbonate [Renvela -] 1,600 mg PO TIDCM tab 04/29/16 Review of Systems - Review of Systems Constitutional: reports: Loss of Appetite Cardiovascular: reports: Chest Pain, Shortness of Breath Gastrointestinal: reports: Abdominal Pain, Constipation Genitourinary: reports: Other (anuria) Musculoskeletal: reports: Other (generalized discomfort) Neurological: reports: Headache Physical Exam Vital Signs: Vital Signs Period Temp Pulse Resp BP Sys/Lopez Pulse Ox Last 24 Hr 93 F-98.8 F 79-94 17-21 92-112/50-67 97-100 Intake & Output 06/30/16 07/01/16 07/02/16 07/03/16 23:59 23:59 23:59 23:59 Intake Total 50 490 Balance 50 490 Weight 158 lb 4.67 oz 2.621 oz Constitutional: Yes: Anxious, Thin (extremities thin) Eyes: Yes: PERRL, Other (rt exotropia) HENT: Yes: WNL Neck: Yes: WNL Cardiovascular: Yes: Tachycardia (low 100s), Pulse Irregular, S1, S2 Respiratory: Yes: Diminished (r>l). No: Rhonchi, Wheezes Gastrointestinal: Yes: Normal Bowel Sounds, Ascites (significant), Tenderness ...Rectal Exam: Yes: Deferred Renal/: Yes: Anuria (per pt) Musculoskeletal: Yes: Other (diffuse pain) Edema: No Peripheral Pulses WNL: Yes (+2 bilateral pedal pulses) Integumentary: Yes: Other (appears dry) Neurological: Yes: Alert, Oriented Labs: Abnormal Lab Results 07/03/16 07/03/16 07/03/16 00:51 09:10 11:56 RBC 3.56 L Hgb 10.5 L Hct 32.6 L Plt Count 77 L Monocytes % 10.6 H Eosinophils % 4.9 H PTT (Actin FS) Sodium Chloride BUN Creatinine Random Glucose Phosphorus Troponin I 0.07 H D 0.06 H 07/03/16 07/03/16 07/03/16 11:56 11:56 11:56 RBC Hgb Hct Plt Count Monocytes % Eosinophils % PTT (Actin FS) 63.2 H Sodium 135 L Chloride 96 L BUN 64 H D Creatinine 8.3 H* D Random Glucose 259 H Phosphorus 7.7 H Troponin I 2.33 H* D Assessment/Plan Pt is a 61yr old man with PMHx of COPD, HTN, HLD, CAD s/p cardiac stent(s) and CABG, AICD, CHF, CVA, ESRD (on h/d //, anuric), and DM. Now in the ICU for elevated troponin secondary to demand ischemia vs nstemi and a-fib with rvr. Pulm: -o2 support prn for sat >90 -Nebulizers prn -f/u chest xray ID: -f/u cultures -Monitor off antibiotics for now -Monitor for sbp Cardio: demand ischemia vs nstemi -Dr. Wu following -Continue heparin drip -Trend troponin -Serial ekg -Rate control -Pressure support (pt on midodrine as outpt) Renal: ESRD (//sun) -Last full HD session last , only 1hr per pt on sunday as was not tolerated -Continue home -Continue home renvela and velphoro -HD per renal GI: Pt with significant ascites. 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
[2016-07-03] MEDS ORDERED: ACETAMINOPHEN 325 MG TABLET (FP) PO PRN (20:24)
[2016-07-03] MEDS ORDERED: OXYCODONE/APAP 5/325MG COMBO TABLET PO PRN (20:24)
--- NOTE | 2016-07-03 20:25 | CONSULT ---
Consult Consult Specialty:: Nephrology Referred by:: Medicine Reason for Consultation:: End stage renal disease - History of Present Illness Chief Complaint: chest pain with shortness of breath and fatigue. History of Present Illness: 61 year old gentleman with type 2 diabetes mellitus, hypertension, hypothyroidism, COPD and CAD, s/p 3 vessel CABG in 2009, s/l PTCA with stent and end stage renal disease on maintenance hemodialysis three times a week at [facility]. Patient was admitted initially to [facility] with chest pain, orthopnea and fatigue. Patient had a syncopal episode on June 26, 2016 which corresponds to VT/VF upon analysis of his ICD. Patient subsequently had burst defibrillation resulting in more fatigue and chest pain. He is now transferred here for further management of elevated troponin values and new onset atrial fibrillation. 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: Peripheral Neuropathy Cardio/Vascular: Yes: AFIB, CAD, CHF, HTN, Hyperlipdemia, Murmur Pulmonary: Yes: COPD (Cirrhosis of the liver likely secondary to GONG.), Other ( h/o MARIAN in lungs-not treated) Gastrointestinal: Yes: Other (cirrhosis-based on GONG likely) Renal/: Yes: Renal Failure Heme/Onc: Yes: Anemia Psych: Yes: Anxiety Endocrine: Yes: Diabetes Mellitus (IDDM), Hypothyroidism - Past Surgical History Past Surgical History: Yes: AICD (PPM), AV Fistula/Graft, CABG (3 vessel in 2009 ), Cholecystectomy (2006) - Alcohol/Substance Use Hx Alcohol Use: No History of Substance Use: reports: None - Smoking History Smoking history: Never smoked Have you smoked in the past 12 months: No Aproximately how many cigarettes per day: 0 - Social History Usual Living Arrangement: With Spouse ADL: Independent Home Medications - Allergies Allergies/Adverse Reactions: Allergies Allergy/AdvReac Type Severity Reaction Status Date / Time No Known Drug Allergies Allergy Verified 04/27/16 10:25 - Home Medications Home Medications: Ambulatory Orders Insulin Glargine,Hum.rec.anlog [Lantus (10mL VIAL) -] 12 units SQ HS 09/13/14 Levothyroxine [Synthroid -] 75 mcg PO DAILY 09/13/14 Carvedilol 6.25 mg PO BID 04/27/16 Sodium Chloride Tablet - 650 mg PO DAILY 04/27/16 Sucroferric Oxyhydroxide [Velphoro] 500 mg PO TID 04/27/16 Midodrine HCl 5 mg PO BID #0 04/29/16 Sevelamer Carbonate [Renvela -] 1,600 mg PO TIDCM tab 04/29/16 Review of Systems - Review of Systems Constitutional: reports: Loss of Appetite, Other (Fatigue) Cardiovascular: reports: Chest Pain, Palpitations, Shortness of Breath Respiratory: reports: Orthopnea, SOB Genitourinary: reports: Other (Anuric) Nephrology Consult - Height Height: 5 ft 6 in - Weight Weight: 2.621 oz - BMI Body Mass Index (BMI): 0.0 - Lab Results CBC,BMP: CBC, BMP 07/03/16 11:56 07/03/16 11:56 Anion Gap: Anion Gap Anion Gap 14 (8-16) 07/03/16 11:56 - Imaging Chest X-ray: Pending, Report Reviewed, Image Reviewed, Other - Physical Examination Vital Signs: Vital Signs Temperature 97.3 F L 07/03/16 15:45 Pulse Rate 94 H 07/03/16 18:00 Respiratory Rate 21 07/03/16 18:00 Blood Pressure 97/62 07/03/16 18:00 O2 Sat by Pulse Oximetry (%) 97 07/03/16 18:55 Constitutional: Yes: Well Nourished, No Distress, Calm Eyes: Yes: Conjunctiva Clear Neck: Yes: Supple Cardiovascular: Yes: Pulse Irregular (grade 2/6 systolic murmur), Murmur Respiratory: Yes: Rhonchi (Coarse breath sound with crackles and some dullness in the right hemithorax) Gastrointestinal: Yes: Normal Bowel Sounds, Soft, Ascites Renal/: Yes: Anuria Access for Hemodialysis: AV Fistula (right arm AV fistula) Extremities: Yes: Other (No bipedal edema) Psychiatric: Yes: Alert, Oriented Problem List - Problems (1) Atrial fibrillation with rapid ventricular response Assessment/Plan: Amiodarone 200mg twice daily added to the regimen as per cardiology. Code(s): I48.91 - UNSPECIFIED ATRIAL FIBRILLATION (2) Demand ischemia Code(s): I24.8 - OTHER FORMS OF ACUTE ISCHEMIC HEART DISEASE (3) Diabetes mellitus Code(s): E11.9 - TYPE 2 DIABETES MELLITUS WITHOUT COMPLICATIONS Qualifiers: Diabetes mellitus type: type 1 Diabetes mellitus complication status: with kidney complications Diabetes mellitus complication detail: with chronic kidney disease Chronic kidney disease stage: on chronic dialysis Qualified Code(s): E10.22 - Type 1 diabetes mellitus with diabetic chronic kidney disease; N18.1 - Chronic kidney disease, stage 1 (4) ESRD (end stage renal disease) Assessment/Plan: Patient is tentatively scheduled for hemodialysis tomorrow a.m in the ICU. Will limit ultra-filtration goal to 2 kg as tolerated. Will give tab midodrine 10mg prior to dialysis to augment dialysis related hypotension. Code(s): N18.6 - END STAGE RENAL DISEASE Assessment/Plan 61 year old man with end stage renal disease admitted with new onset atrial fibrillation and demand cardiac ischemia. He is tentatively scheduled fro hemodialysis in a.m. Will follow.
[2016-07-03] MEDS ORDERED: morphine CARPU-JECT 2 MG/1 ML DISP.SYRIN IVPUSH ONE (20:52)
[2016-07-03] MEDS ORDERED: ATORVASTATIN CA 80 MG TABLET (FP) PO STA (20:54)
[2016-07-03] MEDS: HEPARIN - 25,000 UNIT in SODIUM CHLORIDE 495 ML IV SCH (21:15)
[2016-07-03] MEDS ORDERED: INSULIN DETEMIR 100 UNITS/ML MDV SQ ONE (21:50)
[2016-07-03] MEDS: CARVEDILOL 6.25 MG TABLET (FP) PO SCH (21:57)
[2016-07-03] MEDS: AMIODARONE HCL 200 MG TABLET (FP) PO SCH (21:57)
[2016-07-03] MEDS ORDERED: MIDODRINE HCL 5 MG TABLET PO SCH (22:00)
[2016-07-03] MEDS ORDERED: SUCROFERRIC OXYHYDROXIDE 500 MG PO SCH (22:00)
[2016-07-03] MEDS ORDERED: INSULIN DETEMIR 100 UNITS/ML MDV SQ SCH (22:00)
[2016-07-03 22:55] LABS: ALBUMIN 3.1 g/dl (3.4-5.0); BILIRUBIN,TOTAL 0.3 mg/dL (0.2-1.0); CALCIUM 7.9 mg/dL (8.5-10.1); MAGNESIUM 2.6 mg/dL (1.8-2.4); PHOSPHOROUS 8.5 mg/dL (2.5-4.9); TOT PROT 6.9 g/dl (6.4-8.2)
[2016-07-03 23:00] LABS: TROPONIN I 0.05 ng/ml (0.00-0.05)
[2016-07-03 23:02] LABS: CREATININE 9.3 mg/dL (0.7-1.3)
[2016-07-04] MEDS ORDERED: CALCIUM ACETATE 667 MG CAPSULE (FP) PO ONE (00:02)
[2016-07-04] MEDS ORDERED: HEPARIN INFUSION - 500 ML IVPB ONE (01:26)
[2016-07-04] MEDS: HEPARIN - 25,000 UNIT in SODIUM CHLORIDE 495 ML IV SCH ×2 (01:45→18:46)
[2016-07-04] MEDS: INSULIN SLIDING SCALE (NOVOLOG) 1 VIAL SQ SCH ×3 (06:03→22:33)
[2016-07-04] MEDS: morphine CARPU-JECT 2 MG/1 ML DISP.SYRIN IVPUSH PRN ×2 (06:13→12:10)
[2016-07-04] MEDS ORDERED: LEVOTHYROXINE NA 75 MCG TABLET (FP) PO SCH (07:00)
[2016-07-04] MEDS: MIDODRINE HCL 5 MG TABLET PO SCH ×3 (07:14→18:37)
[2016-07-04] MEDS ORDERED: PT OWN MED DRAWER 7, Y5N ONE ×2 (07:21→18:36)
--- NOTE | 2016-07-04 07:24 | PN ---
Progress Note (short form) - Note Progress Note: Chief Complaint: Events noted, notes reviewed, complaining of dyspnea and abdominal distention related to ascitic fluid, has not had HD since last , denies any chest pain Remains in atrial fibrillation with periods of rapid ventricular response Echocardiography dated 04/28/16 revealed LV systolic function moderate/severely reduced, akinesis of basal and mid kandy-septum, apical anterior and apical inferior mustafa; left atrium moderately dilated; mild to moderate mitral annular calcification, mild mitral regurgitaion, moderate tricuspid regurgitation, RV systolic pressure elevated; mild aortic sclerosis. Abdominal U/S dated 04/2016 revealed ascites, heterogeneous liver and splenomegaly consistent with advanced hepato-cellular disease Medications: Current Medications Acetaminophen (Tylenol -) 650 mg PO Q4H PRN PRN Reason: FEVER OR PAIN Amiodarone HCl (Cordarone -) 200 mg PO BID [facility] Last Admin: 07/03/16 21:57 Dose: 200 mg Carvedilol (Coreg -) 6.25 mg PO BID [facility] Last Admin: 07/03/16 21:57 Dose: 6.25 mg Docusate Sodium (Colace -) 100 mg PO BID [facility] Epoetin Chevy (Procrit -) 10,000 unit IVPUSH ONCE ONE Stop: 07/04/16 06:01 Heparin Sodium (Porcine) (Heparin -) 1,000 unit IVPUSH PRN PRN PRN Reason: Heparin Heparin Sodium (Porcine) (Heparin -) 5,000 unit IVPUSH PRN PRN PRN Reason: Heparin Heparin Sodium (Porcine) 25, (000 unit/ Sodium Chloride) 500 mls @ 20 mls/hr IV TITR RACHEL; 1,000 UNIT/HR PRN Reason: Protocol Last Admin: 07/04/16 01:45 Dose: 20 mls/hr Insulin Aspart (Novolog Vial Sliding Scale -) 1 vial SQ TIDAC [facility] PRN Reason: Protocol Last Admin: 07/04/16 06:03 Dose: 3 units Insulin Detemir (Levemir Vial) 12 units SQ HS [facility] Last Admin: 07/03/16 22:03 Dose: 12 units Levothyroxine Sodium (Synthroid -) 75 mcg PO DAILY@0700 [facility] Last Admin: 07/04/16 06:04 Dose: 75 mcg Midodrine (Proamatine -) 5 mg PO BID-MID [facility] Morphine Sulfate (Morphine Injection -) 1 mg IVPUSH Q3H PRN PRN Reason: PAIN Last Admin: 07/04/16 06:13 Dose: 1 mg Non-Formulary Medication (Sucroferric Oxyhydroxide [Velphoro]) 500 mg PO TID R[facility] Senna (Senna -) 1 tab PO HS [facility] Sevelamer Carbonate (Renvela -) 1,600 mg PO TIDCM [facility] Review of Systems Cardiovascular: As noted above Respiratory: denies: Cough or Sputum Production Gastrointestinal: denies: Nausea, Vomiting, Diarrhea, Constipation but reports Abdominal Distention Musculoskeletal: No Symptoms Reported Endocrine: History of DM Vital Signs: Last Vital Signs Temp Pulse Resp BP Pulse Ox 97.6 F 90 20 96/66 98 07/04/16 06:00 07/04/16 06:00 07/04/16 06:00 07/04/16 06:00 07/03/16 22:00 Constitutional: No Distress, Calm, Thin Neck: Supple Negative JVD No bruit Respiratory: Diminished Breath Sounds at the Bases Cardiovascular: S1 S2 Irregularly Irregular Grade 2/6 SM Gastrointestinal: Soft Benign Normal Bowel Sounds Ext: No Edema Labs: Troponin, BNP 07/03/16 07/03/16 07/03/16 09:10 11:56 22:00 Troponin I 0.06 H 2.33 H* D 0.05 CBC, BMP 07/03/16 11:56 07/03/16 22:00 Labs from this AM pending Assessment/Plan ASSESSMENT: 1. Paroxysmal atrial fibrillation with periods of rapid ventricular response, [id number] score of 4 2. Syncope referable to sustained VT/VF post appropriate ICD therapy 3. CAD post GA/PCI(stent)/CABG, angina pectoris with demand ischemic injury 4. Ischemic dilated cardiomyopathy 5. Post Medtronic ICD implant 6. HTN history currently hypotensive on Midodrine therapy 7. DM 8. Hypothyroidism 9. ESRD on HD 10. Advanced liver disease, unclear if hepatic cirrhosis 11. Thrombocytopenia PLAN: 1. Ideally would up-titrate Carvedilol and initiate ACEI or ARBS, but limited by hypotension 2. Continue Amiodarone but limiting factor would be CLD (chronic liver disease) severity 3. Heparin and Coumadin as per INR with caution and if varices are present in conjunction with the above noted CLD A/C might be contraindicated, to be discussed with the primary team 4. Continue Midodrine 5. HD as per renal service 6. Follow labs from this AM Jocelyn Hay M.D.
[2016-07-04] MEDS ORDERED: MIDODRINE HCL 5 MG TABLET PO ONE (08:15)
[2016-07-04] MEDS: SEVELAMER CARBONATE 800 MG TAB (FP) PO SCH ×3 (08:18→18:00)
[2016-07-04] MEDS ORDERED: EPOETIN ALFA 10,000 UNIT/1 ML VIAL IVPUSH ONE (09:00)
[2016-07-04 09:08] LABS: BASOPHIL 0.5 % (0-2.0); EOSINOPHIL 3.6 % (0-4.5); MCH 29.9 pg (25.7-33.7); MEAN CELL VOLUME 93.7 fl (80-96); MEAN PLT VOLUME 9.5 fl (7.5-11.1); NEUTROPHILS 77.6 % (42.8-82.8); PLATELET COUNT 66 K/MM3 (134-434); RDW 16.2 % (11.9-15.9); WHITE BLOOD COUNT 4.8 K/mm3 (4.0-10.0)
[2016-07-04 09:11] LABS: ALBUMIN 3.1 g/dl (3.4-5.0); BILIRUBIN,TOTAL 0.4 mg/dL (0.2-1.0); CALCIUM 7.3 mg/dL (8.5-10.1); MAGNESIUM 2.5 mg/dL (1.8-2.4); PHOSPHOROUS 8.3 mg/dL (2.5-4.9); TOT PROT 6.7 g/dl (6.4-8.2)
[2016-07-04 09:13] LABS: TROPONIN I 0.05 ng/ml (0.00-0.05)
[2016-07-04] MEDS ORDERED: DOCUSATE SODIUM 100 MG CAPSULE (FP) PO SCH (10:00)
[2016-07-04] MEDS: ALBUMIN HUMAN 25% 100 ML VIAL IVPB SCH ×4 (10:00→11:30)
[2016-07-04 10:07] LABS: INR 1.15 (0.82-1.09); PROTHROMBIN TIME (PATIENT) 12.7 SEC (9.98-11.88)
--- NOTE | 2016-07-04 11:40 | PN ---
Progress Note (short form) - Note Progress Note: Patient is feeling better today. Seen during hemodialysis. He denies any chest pain or palpitation during the treatment. Vitals Initial Vital Signs Temp Pulse Resp BP Pulse Ox 98.1 F 115 H 21 111/68 100 07/02/16 14:02 07/02/16 14:02 07/02/16 14:02 07/02/16 14:02 07/02/16 14:02 Lungs Coarse breath sound in both lung viera Heart: S1 S2 irregular Abd: Obese, soft, non-tender to palpation Ext: No edema Neuro: Awake and alert. Access: Right arm AVF in use Labs: Laboratory Results - last 24 hr 07/03/16 07/03/16 07/03/16 11:50 11:56 11:56 WBC 4.7 RBC 3.56 L Hgb 10.5 L Hct 32.6 L MCV 91.5 MCHC 32.2 RDW 15.4 Plt Count 77 L MPV 8.6 Neutrophils % 73.8 Lymphocytes % 10.1 Monocytes % 10.6 H Eosinophils % 4.9 H Basophils % 0.6 INR PTT (Actin FS) 63.2 H Sodium Potassium Chloride Carbon Dioxide Anion Gap BUN Creatinine Creat Clearance w eGFR POC Glucometer 236 Random Glucose Calcium Phosphorus Magnesium Total Bilirubin AST ALT Alkaline Phosphatase Creatine Kinase Troponin I Total Protein Albumin TSH 07/03/16 07/03/16 07/03/16 11:56 11:56 17:45 WBC RBC Hgb Hct MCV MCHC RDW Plt Count MPV Neutrophils % Lymphocytes % Monocytes % Eosinophils % Basophils % INR PTT (Actin FS) Sodium 135 L Potassium 4.0 Chloride 96 L Carbon Dioxide 25 Anion Gap 14 BUN 64 H D Creatinine 8.3 H* D Creat Clearance w eGFR 6.58 POC Glucometer [phone] Random Glucose 259 H Calcium 8.5 Phosphorus 7.7 H Magnesium 2.3 Total Bilirubin 0.4 AST 13 D ALT 16 Alkaline Phosphatase 68 Creatine Kinase Troponin I 2.33 H* D Total Protein 7.0 Albumin 3.6 TSH 07/03/16 07/03/16 07/04/16 21:56 22:00 05:38 WBC RBC Hgb Hct MCV MCHC RDW Plt Count MPV Neutrophils % Lymphocytes % Monocytes % Eosinophils % Basophils % INR PTT (Actin FS) Sodium 136 Potassium 3.7 Chloride 97 L Carbon Dioxide 24 Anion Gap 15 BUN 65 H Creatinine 9.3 H* Creat Clearance w eGFR 5.77 POC Glucometer 178.57006 229.46182 Random Glucose 147 H Calcium 7.9 L Phosphorus 8.5 H D Magnesium 2.6 H Total Bilirubin 0.3 D AST 10 L D ALT 16 D Alkaline Phosphatase 73 Creatine Kinase 23 L Troponin I 0.05 Total Protein 6.9 Albumin 3.1 L TSH 07/04/16 07/04/16 07/04/16 07:20 07:20 07:20 WBC 4.8 RBC 3.11 L Hgb 9.3 L Hct 29.2 L MCV 93.7 MCHC 32.0 RDW 16.2 H Plt Count 66 L MPV 9.5 Neutrophils % 77.6 Lymphocytes % 8.8 Monocytes % 9.5 Eosinophils % 3.6 Basophils % 0.5 INR PTT (Actin FS) Sodium 136 Potassium 4.0 Chloride 98 Carbon Dioxide 23 Anion Gap 15 BUN 68 H Creatinine 10.0 H* Creat Clearance w eGFR 5.31 POC Glucometer Random Glucose 207 H D Calcium 7.3 L Phosphorus 8.3 H Magnesium 2.5 H Total Bilirubin 0.4 D AST 9 L ALT 15 Alkaline Phosphatase 71 Creatine Kinase 23 L Cancelled Troponin I 0.05 Cancelled Total Protein 6.7 Albumin 3.1 L TSH 4.00 H D 07/04/16 07/04/16 07:20 07:20 WBC RBC Hgb Hct MCV MCHC RDW Plt Count MPV Neutrophils % Lymphocytes % Monocytes % Eosinophils % Basophils % INR 1.15 H PTT (Actin FS) 51.5 H D Sodium Potassium Chloride Carbon Dioxide Anion Gap BUN Creatinine Creat Clearance w eGFR POC Glucometer Random Glucose Calcium Phosphorus Magnesium Total Bilirubin AST ALT Alkaline Phosphatase Creatine Kinase Troponin I Total Protein Albumin TSH A/P: 61 year old gentleman with ESRD admitted with new onset A.fib and chest pain. Hemodialysis today as per dialysis orders. Will follow. Problem List - Problems (1) Atrial fibrillation with rapid ventricular response Code(s): I48.91 - UNSPECIFIED ATRIAL FIBRILLATION (2) Demand ischemia Code(s): I24.8 - OTHER FORMS OF ACUTE ISCHEMIC HEART DISEASE (3) Diabetes mellitus Code(s): E11.9 - TYPE 2 DIABETES MELLITUS WITHOUT COMPLICATIONS Qualifiers: Diabetes mellitus type: type 1 Diabetes mellitus complication status: with kidney complications Diabetes mellitus complication detail: with chronic kidney disease Chronic kidney disease stage: on chronic dialysis Qualified Code(s): E10.22 - Type 1 diabetes mellitus with diabetic chronic kidney disease; N18.1 - Chronic kidney disease, stage 1 (4) ESRD (end stage renal disease) Assessment/Plan: Stable during hemodialysis today with ultra-filtration goal of 2.5kg achieved. Will follow. Code(s): N18.6 - END STAGE RENAL DISEASE
[2016-07-04 11:45] LABS: MCH 29.7 pg (25.7-33.7); MCHC 32.2 g/dl (32.0-35.9); MEAN CELL VOLUME 92.3 fl (80-96); MEAN PLT VOLUME 9.5 fl (7.5-11.1); PLATELET COUNT 90 K/MM3 (134-434); RDW 16.3 % (11.9-15.9); WHITE BLOOD COUNT 7.2 K/mm3 (4.0-10.0)
[2016-07-04] MEDS: AMIODARONE HCL 200 MG TABLET (FP) PO SCH ×2 (12:11→22:02)
[2016-07-04] MEDS: CARVEDILOL 6.25 MG TABLET (FP) PO SCH ×2 (12:11→22:02)
[2016-07-04 12:25] LABS: BILIRUBIN,TOTAL 0.9 mg/dL (0.2-1.0); TOT PROT 8.6 g/dl (6.4-8.2)
[2016-07-04 12:47] LABS: ALBUMIN 4.3 g/dl (3.4-5.0); CALCIUM 9.2 mg/dL (8.5-10.1); CREATININE 3.7 mg/dL (0.7-1.3); MAGNESIUM 1.9 mg/dL (1.8-2.4); PHOSPHOROUS 2.6 mg/dL (2.5-4.9)
--- NOTE | 2016-07-04 13:02 | PN ---
Teaching Attending Note Name of Resident: Gonzalo Thibodeaux ATTENDING PHYSICIAN STATEMENT I saw and evaluated the patient. I reviewed the resident's note and discussed the case with the resident. I agree with the resident's findings and plan as documented. SUBJECTIVE: Patient seen and examined in the ICU. Awake and alert. Denies CP or SOB. Currently on HD. Intake & Output 07/01/16 07/02/16 07/03/16 07/04/16 23:59 23:59 23:59 23:59 Intake Total 50 590 390 Output Total 0 Balance 50 590 390 Weight 158 lb 4.67 oz 2.621 oz 164 lb 14.492 oz Last Vital Signs Temp Pulse Resp BP Pulse Ox 98.1 F 92 H 19 131/71 98 07/04/16 10:00 07/04/16 12:00 07/04/16 12:00 07/04/16 12:00 07/04/16 10:00 Active Medications Acetaminophen (Tylenol -) 650 mg PO Q4H PRN PRN Reason: FEVER OR PAIN Amiodarone HCl (Cordarone -) 200 mg PO BID [facility] Last Admin: 07/04/16 12:11 Dose: 200 mg Carvedilol (Coreg -) 6.25 mg PO BID [facility] Last Admin: 07/04/16 12:11 Dose: 6.25 mg Docusate Sodium (Colace -) 100 mg PO BID [facility] Last Admin: 07/04/16 12:10 Dose: 100 mg Heparin Sodium (Porcine) (Heparin -) 1,000 unit IVPUSH PRN PRN PRN Reason: Heparin Heparin Sodium (Porcine) (Heparin -) 5,000 unit IVPUSH PRN PRN PRN Reason: Heparin Heparin Sodium (Porcine) 25, (000 unit/ Sodium Chloride) 500 mls @ 20 mls/hr IV TITR RACHEL; 1,000 UNIT/HR PRN Reason: Protocol Last Admin: 07/04/16 01:45 Dose: 20 mls/hr Insulin Aspart (Novolog Vial Sliding Scale -) 1 vial SQ TIDAC [facility] PRN Reason: Protocol Last Admin: 07/04/16 06:03 Dose: 3 units Insulin Detemir (Levemir Vial) 12 units SQ HS [facility] Last Admin: 07/03/16 22:03 Dose: 12 units Levothyroxine Sodium (Synthroid -) 75 mcg PO DAILY@0700 [facility] Last Admin: 07/04/16 06:04 Dose: 75 mcg Midodrine (Proamatine -) 5 mg PO BID-MID [facility] Last Admin: 07/04/16 08:15 Dose: 5 mg Morphine Sulfate (Morphine Injection -) 1 mg IVPUSH Q3H PRN PRN Reason: PAIN Last Admin: 07/04/16 06:13 Dose: 1 mg Non-Formulary Medication (Sucroferric Oxyhydroxide [Velphoro]) 500 mg PO TID [facility] Senna (Senna -) 1 tab PO HS [facility] Sevelamer Carbonate (Renvela -) 1,600 mg PO TIDCM [facility] Last Admin: 07/04/16 12:11 Dose: 1,600 mg Constitutional: Yes: Awake, No Distress Neck: Yes: Supple Respiratory: Yes: Regular, Diminished Gastrointestinal: Yes: Normal Bowel Sounds, Soft Cardiovascular: Yes: Pulse Irregular JVD: No Carotid Bruit: No Heart Sounds: Yes: S1, S2 Murmur: Yes: Systolic Murmur, Grade 2 Edema: No Laboratory Results - last 24 hr 07/03/16 07/03/16 07/03/16 11:56 17:45 21:56 WBC RBC Hgb Hct MCV MCHC RDW Plt Count MPV Neutrophils % Lymphocytes % Monocytes % Eosinophils % Basophils % INR PTT (Actin FS) Sodium Potassium Chloride Carbon Dioxide Anion Gap BUN Creatinine Creat Clearance w eGFR POC Glucometer [phone] Random Glucose Calcium Phosphorus Magnesium Total Bilirubin AST ALT Alkaline Phosphatase Creatine Kinase Troponin I 2.33 H* D Total Protein Albumin [facility] 07/03/16 07/04/16 07/04/16 22:00 05:38 07:20 WBC 4.8 RBC 3.11 L Hgb 9.3 L Hct 29.2 L MCV 93.7 MCHC 32.0 RDW 16.2 H Plt Count 66 L MPV 9.5 Neutrophils % 77.6 Lymphocytes % 8.8 Monocytes % 9.5 Eosinophils % 3.6 Basophils % 0.5 INR PTT (Actin FS) Sodium 136 Potassium 3.7 Chloride 97 L Carbon Dioxide 24 Anion Gap 15 BUN 65 H Creatinine 9.3 H* Creat Clearance w eGFR 5.77 POC Glucometer 229.36857 Random Glucose 147 H Calcium 7.9 L Phosphorus 8.5 H D Magnesium 2.6 H Total Bilirubin 0.3 D AST 10 L D ALT 16 D Alkaline Phosphatase 73 Creatine Kinase 23 L Troponin I 0.05 Total Protein 6.9 Albumin 3.1 L TSH 07/04/16 07/04/16 07/04/16 07:20 07:20 07:20 WBC RBC Hgb Hct MCV MCHC RDW Plt Count MPV Neutrophils % Lymphocytes % Monocytes % Eosinophils % Basophils % INR PTT (Actin FS) 51.5 H D Sodium 136 Potassium 4.0 Chloride 98 Carbon Dioxide 23 Anion Gap 15 BUN 68 H Creatinine 10.0 H* Creat Clearance w eGFR 5.31 POC Glucometer Random Glucose 207 H D Calcium 7.3 L Phosphorus 8.3 H Magnesium 2.5 H Total Bilirubin 0.4 D AST 9 L ALT 15 Alkaline Phosphatase 71 Creatine Kinase 23 L Cancelled Troponin I 0.05 Cancelled Total Protein 6.7 Albumin 3.1 L TSH 4.00 H D 07/04/16 07/04/16 07/04/16 07:20 11:00 11:00 WBC 7.2 D RBC 3.51 L Hgb 10.4 L D Hct 32.3 L MCV 92.3 MCHC 32.2 RDW 16.3 H Plt Count 90 L D MPV 9.5 Neutrophils % Lymphocytes % Monocytes % Eosinophils % Basophils % INR 1.15 H PTT (Actin FS) Sodium 135 L Potassium 3.2 L Chloride 97 L Carbon Dioxide 28 D Anion Gap 10 BUN 23 H D Creatinine 3.7 H D Creat Clearance w eGFR 16.73 POC Glucometer Random Glucose 211 H Calcium 9.2 D Phosphorus 2.6 D Magnesium 1.9 D Total Bilirubin 0.9 D AST 9 L ALT 17 Alkaline Phosphatase 76 Creatine Kinase Troponin I Total Protein 8.6 H D Albumin 4.3 D TSH Problem List - Problems (1) Atrial fibrillation with rapid ventricular response Code(s): I48.91 - UNSPECIFIED ATRIAL FIBRILLATION (2) Cirrhosis Code(s): K74.60 - UNSPECIFIED CIRRHOSIS OF LIVER Qualifiers: Hepatic cirrhosis type: unspecified hepatic cirrhosis Ascites presence : with ascites Qualified Code(s): K74.60 - Unspecified cirrhosis of liver (3) Coronary artery disease Code(s): I25.10 - ATHSCL HEART DISEASE OF [place] CORONARY ARTERY W/O ANG PCTRS Qualifiers: Coronary Disease-Associated Artery/Lesion type: [place] artery [place] vs. transplanted heart: [place] heart Associated angina: with stable angina Qualified Code(s): I25.119 - Atherosclerotic heart disease of [place] coronary artery with unspecified angina pectoris (4) Diabetes mellitus Code(s): E11.9 - TYPE 2 DIABETES MELLITUS WITHOUT COMPLICATIONS Qualifiers: Diabetes mellitus type: type 1 Diabetes mellitus complication status: with kidney complications Diabetes mellitus complication detail: with chronic kidney disease Chronic kidney disease stage: on chronic dialysis Qualified Code(s): E10.22 - Type 1 diabetes mellitus with diabetic chronic kidney disease; N18.1 - Chronic kidney disease, stage 1 (5) ESRD (end stage renal disease) Code(s): N18.6 - END STAGE RENAL DISEASE (6) HTN (hypertension) Code(s): I10 - ESSENTIAL (PRIMARY) HYPERTENSION Qualifiers: Hypertension type: essential hypertension Qualified Code(s): I10 - Essential (primary) hypertension (7) Hypothyroidism Code(s): E03.9 - HYPOTHYROIDISM, UNSPECIFIED Qualifiers: Hypothyroidism type: acquired Qualified Code(s): E03.9 - Hypothyroidism, unspecified (8) ICD (implantable cardioverter-defibrillator) discharge Code(s): Z45.02 - ENCNTR FOR ADJUST AND MGMT OF AUTOMATIC IMPLNTBL CARD DEFIB (9) Ventricular tachycardia Code(s): I47.2 - VENTRICULAR TACHYCARDIA (10) S/P coronary artery stent placement Code(s): Z95.5 - PRESENCE OF CORONARY ANGIOPLASTY IMPLANT AND GRAFT (11) Demand ischemia Code(s): I24.8 - OTHER FORMS OF ACUTE ISCHEMIC HEART DISEASE (12) Ischemic dilated cardiomyopathy Code(s): I25.5 - ISCHEMIC CARDIOMYOPATHY Assessment/Plan Meds per Cardiology O2 as needed HD per Renal AC with IV Heparin ECHO Telemetry monitoring Dr Fuller CCTime 35"
[2016-07-04] MEDS: oxyCODONE HCL 5 MG TABLET PO PRN ×2 (13:10→22:05)
[2016-07-04] MEDS ORDERED: OXYCODONE/APAP 5/325MG COMBO TABLET PO PRN (13:55)
[2016-07-04] MEDS ORDERED: oxyCODONE HCL 5 MG TABLET ONE (14:05)
--- NOTE | 2016-07-04 14:06 | PN ---
Progress Note, Physician History of Present Illness: Pt was seen and examined at bedside whilst receiving HD this morning. Pt states he feels much better than previous days. His only complaint currently is that his abdomen feels very bloated, but states he knows it's the fluid inside. He currently denies any CP/pressure, palpitations, anxiety, SOB, headache, fever/ chills, nausea/vomiting, weakness, and lightheadedness. - Current Medication List Current Medications: Active Medications Acetaminophen (Tylenol -) 650 mg PO Q4H PRN PRN Reason: FEVER OR PAIN Amiodarone HCl (Cordarone -) 200 mg PO BID [facility] Last Admin: 07/04/16 12:11 Dose: 200 mg Carvedilol (Coreg -) 6.25 mg PO BID [facility] Last Admin: 07/04/16 12:11 Dose: 6.25 mg Docusate Sodium (Colace -) 100 mg PO BID [facility] Last Admin: 07/04/16 12:10 Dose: 100 mg Heparin Sodium (Porcine) (Heparin -) 1,000 unit IVPUSH PRN PRN PRN Reason: Heparin Heparin Sodium (Porcine) (Heparin -) 5,000 unit IVPUSH PRN PRN PRN Reason: Heparin Heparin Sodium (Porcine) 25, (000 unit/ Sodium Chloride) 500 mls @ 20 mls/hr IV TITR RACHEL; 1,000 UNIT/HR PRN Reason: Protocol Last Admin: 07/04/16 01:45 Dose: 20 mls/hr Insulin Aspart (Novolog Vial Sliding Scale -) 1 vial SQ TIDAC [facility] PRN Reason: Protocol Last Admin: 07/04/16 12:00 Dose: 3 units Insulin Detemir (Levemir Vial) 12 units SQ HS [facility] Last Admin: 07/03/16 22:03 Dose: 12 units Levothyroxine Sodium (Synthroid -) 75 mcg PO DAILY@0700 [facility] Last Admin: 07/04/16 06:04 Dose: 75 mcg Midodrine (Proamatine -) 5 mg PO BID-MID [facility] Last Admin: 07/04/16 08:15 Dose: 5 mg Non-Formulary Medication (Sucroferric Oxyhydroxide [Velphoro]) 500 mg PO TID [facility] Oxycodone/Acetaminophen (Percocet 5/325 -) 1 combo PO Q6H PRN PRN Reason: PAIN Senna (Senna -) 1 tab PO HS [facility] Sevelamer Carbonate (Renvela -) 1,600 mg PO TIDCM [facility] Last Admin: 07/04/16 12:11 Dose: 1,600 mg - Objective Vital Signs: Vital Signs Temperature 98.1 F 07/04/16 10:00 Pulse Rate 92 H 07/04/16 12:00 Respiratory Rate 19 07/04/16 12:00 Blood Pressure 131/71 07/04/16 12:00 O2 Sat by Pulse Oximetry (%) 98 07/04/16 10:00 PE: Gen: No acute distress, resting comfortably at bedside Head: Normocephalic, Atraumatic, No signs of trauma Eyes: PERRL, EOMI intact, Lazy eye noted per baseline Neck: Trachea midline, supple Lungs: CTA b/l, no wheezes, rhonchi, rales Cardiac: Rate @ 90, Irregularly irregular rhythm, S1 and S2 intact, no murmus, clicks, or rubs Abdomen: Moderately distended, soft, shifting dullness to percussion noted, no fluid wave on exam nontender. Organomegaly could not be assessed due to distention and ascites Extremities: Pulses strong and intact b/l throughout, Cap refill <2, No edema in lower extremities Labs: CBC, BMP 07/04/16 11:00 07/04/16 11:00 INR, PTT INR 1.15 (0.82-1.09) H 07/04/16 07:20 Assessment/Plan A/P: 61 yo M with significant history of CAD s/p CABG, stents, and ICD placement, ESRD on dialysis (T//Sun), COPD, HTN, HLD, and DM originally admitted to the ICU due to R chest pressure, palpitations, and weakness. Elevated troponins secondary to debrillator shock/demand ischemia. Neuro stop morphine restart percocet f/u CSF pending at this time Pulmonary --SpO2 >90% on RA noted --Monitor accordingly Cardiac --Dr. Guzman saw pt today --Would ideally optimize Carvedilol and administer ACEi/ARB, but hypotension limits this --Cont. Amiodarone 200 mg PO BID --Cont. Carvedilol 6.25mg PO BID --Cont. Heparin gtt --Cont. Midodrine; started as outpt troponin trended down Renal: --HD per renal team; 2.5kg ultrafiltrate goal currently --Cont. home meds (Renvela and Velphoro) daily labs GI: --Currently receiving HD --F/U Hep C panel pending --Cont. home meds (Colace and Senna) Endo: --Cont. ISS --Cont. Levemir 12 units SQ HS --Monitor BG levels --Cont. Synthroid 75mcg PO qdaily for hypothyroidism FEN: Fluids: None currently no electrolyte issues Nutrition: Renal Diet Prophylaxis: --DVT ppx: Heparin gtt --GI ppx: Not indicated at current time PT consult Dispo: Transfer to telemetry Dr. Cronin to assess whether patient needs to be transferred to [place] to see his repair operator
[2016-07-04] MEDS ORDERED: ACETAMINOPHEN 325 MG TABLET (FP) PO PRN ×2 (14:19→16:18)
[2016-07-04] MEDS ORDERED: HEPARIN NA (PORCINE) 5,000 UNITS/ML 1ML VIAL IVPUSH PRN ×4 (16:18)
--- NOTE | 2016-07-04 17:47 | PN ---
Physical Exam: SUBJECTIVE: Patient seen and examined at bedside. He c/o sob, headache, palpations, constipation, and pain all over the body. Denied chest pain, n/v, fever or chills, bowel or urinary symptoms. OBJECTIVE: Vital Signs Period Temp Pulse Resp BP Sys/Lopez Pulse Ox Last 24 Hr 97 F-98.4 F 84-104 18-24 70-131/46-101 97-98 GENERAL: The patient is awake, alert, and fully oriented, in no acute distress. HEAD: Normal with no signs of trauma. EYES: sclera anicteric, conjunctiva clear. No ptosis. ENT: Ears normal, nares patent, oropharynx clear without exudates, moist mucous membranes. NECK: Trachea midline, full range of motion, supple. LUNGS: Breath sounds equal, clear to auscultation bilaterally, no wheezes, no crackles, no accessory muscle use. HEART: rapid rate and irregularly irregular rhythm, S1, S2 without murmur, rub or gallop. ABDOMEN: moderately distender, hypoactive bowel sounds, nontender, no guarding or rebound tenderness EXTREMITIES: 2+ pulses, no edema. PSYCH: Normal mood, normal affect. SKIN: Warm, dry, normal turgor, no rashes or lesions noted Laboratory Results - last 24 hr 07/03/16 07/03/16 07/03/16 17:45 21:56 22:00 WBC RBC Hgb Hct MCV MCHC RDW Plt Count MPV Neutrophils % Lymphocytes % Monocytes % Eosinophils % Basophils % INR PTT (Actin FS) Sodium 136 Potassium 3.7 Chloride 97 L Carbon Dioxide 24 Anion Gap 15 BUN 65 H Creatinine 9.3 H* Creat Clearance w eGFR 5.77 POC Glucometer [phone] Random Glucose 147 H Calcium 7.9 L Phosphorus 8.5 H D Magnesium 2.6 H Total Bilirubin 0.3 D AST 10 L D ALT 16 D Alkaline Phosphatase 73 Creatine Kinase 23 L Troponin I 0.05 Total Protein 6.9 Albumin 3.1 L TSH 07/04/16 07/04/16 07/04/16 05:38 07:20 07:20 WBC 4.8 RBC 3.11 L Hgb 9.3 L Hct 29.2 L MCV 93.7 MCHC 32.0 RDW 16.2 H Plt Count 66 L MPV 9.5 Neutrophils % 77.6 Lymphocytes % 8.8 Monocytes % 9.5 Eosinophils % 3.6 Basophils % 0.5 INR PTT (Actin FS) Sodium 136 Potassium 4.0 Chloride 98 Carbon Dioxide 23 Anion Gap 15 BUN 68 H Creatinine 10.0 H* Creat Clearance w eGFR 5.31 POC Glucometer [phone] Random Glucose 207 H D Calcium 7.3 L Phosphorus 8.3 H Magnesium 2.5 H Total Bilirubin 0.4 D AST 9 L ALT 15 Alkaline Phosphatase 71 Creatine Kinase 23 L Troponin I 0.05 Total Protein 6.7 Albumin 3.1 L TSH 4.00 H D 07/04/16 07/04/16 07/04/16 07:20 07:20 07:20 WBC RBC Hgb Hct MCV MCHC RDW Plt Count MPV Neutrophils % Lymphocytes % Monocytes % Eosinophils % Basophils % INR 1.15 H PTT (Actin FS) 51.5 H D Sodium Potassium Chloride Carbon Dioxide Anion Gap BUN Creatinine Creat Clearance w eGFR POC Glucometer Random Glucose Calcium Phosphorus Magnesium Total Bilirubin AST ALT Alkaline Phosphatase Creatine Kinase Cancelled Troponin I Cancelled Total Protein Albumin TSH 07/04/16 07/04/16 11:00 11:00 WBC 7.2 D RBC 3.51 L Hgb 10.4 L D Hct 32.3 L MCV 92.3 MCHC 32.2 RDW 16.3 H Plt Count 90 L D MPV 9.5 Neutrophils % Lymphocytes % Monocytes % Eosinophils % Basophils % INR PTT (Actin FS) Sodium 135 L Potassium 3.2 L Chloride 97 L Carbon Dioxide 28 D Anion Gap 10 BUN 23 H D Creatinine 3.7 H D Creat Clearance w eGFR 16.73 POC Glucometer Random Glucose 211 H Calcium 9.2 D Phosphorus 2.6 D Magnesium 1.9 D Total Bilirubin 0.9 D AST 9 L ALT 17 Alkaline Phosphatase 76 Creatine Kinase Troponin I Total Protein 8.6 H D Albumin 4.3 D TSH Active Medications Generic Name Dose Route Start Last Admin Trade Name Freq PRN Reason Stop Dose Admin Acetaminophen 650 mg 07/04/16 16:18 Tylenol - PO Q4H PRN FEVER OR PAIN Amiodarone HCl 200 mg 07/04/16 22:00 Cordarone - PO BID [facility] Carvedilol 6.25 mg 07/04/16 22:00 Coreg - PO BID [facility] Docusate Sodium 100 mg 07/04/16 22:00 Colace - PO BID [facility] Heparin Sodium (Porcine) 1,000 unit 07/04/16 16:18 Heparin - IVPUSH PRN PRN Heparin Heparin Sodium (Porcine) 5,000 unit 07/04/16 16:18 Heparin - IVPUSH PRN PRN Heparin Heparin Sodium (Porcine) 25, 500 mls @ 20 mls/hr 07/04/16 16:18 000 unit/ Sodium Chloride IV TITR [facility] Protocol 1,000 UNIT/HR Insulin Aspart 1 vial 07/04/16 16:30 Novolog Vial Sliding Scale - SQ TIDAC [facility] Protocol Insulin Detemir 12 units 07/04/16 22:00 Levemir Vial SQ HS [facility] Levothyroxine Sodium 75 mcg 07/05/16 07:00 Synthroid - PO DAILY@0700 [facility] Midodrine 5 mg 07/04/16 18:00 Proamatine - PO BID-MID [facility] Non-Formulary Medication 500 mg 07/04/16 22:00 Sucroferric Oxyhydroxide [Velphoro] PO TID [facility] Oxycodone HCl 5 mg 07/04/16 14:19 07/04/16 13:10 Roxicodone - PO 5 mg Q6H PRN Administration PAIN Senna 1 tab 07/04/16 22:00 Senna - PO HS [facility] Sevelamer Carbonate 1,600 mg 07/04/16 17:30 Renvela - PO TIDCM [facility] ASSESSMENT/PLAN: 61 y M with h/o anemia, COPD, HTN, HLD, DM, CVA, CAD s/p stent and CABG, PPM, ESRD who presented to the ED for generalized weakness, palpitations, R sided chest pressure and SOB. In the ED he's found to have new onset afib with RVR and he's now on cardiac monitoring on telemetry. A-fib, new onset with controlled rate - [id number] = 4 - troponin trended down - normal TSH and no thrombus seen on ECHO - cont. amiodarone - normal LFT - will need PFT for baseline - cont. carvedilol, midodrine, heparin gtt ESRD on HD - cont. scheduled HD - cont. renvela and velphoro Abdominal ascite likely 2/2 liver cirrhosis - h/o paracentesis but no SBP - f/u hepatitis panel IDDM - cont. levemir 12 units HS and ISS Hypothyroidism - cont. synthroid FEN - IVF not indicated - lytes normal after HD - renal diet Prophylaxis - DVT: on heparin gtt - GI: not indicated - deconditioning: early ambulation; PT Dispo: active planning for d/c tomorrow Visit type - Emergency Visit Emergency Visit: No - New Patient This patient is new to me today: Yes Date on this admission: 07/04/16 - Critical Care Critical Care patient: Yes Total Critical Care Time (in minutes): 45 Critical Care Statement: The care of this patient involved high complexity decision making to prevent further life threatening deterioration of the patient 's condition and/or to evalute & treat vital organ system(s) failure or risk of failure.
--- NOTE | 2016-07-04 18:30 | PN ---
Teaching Attending Note Name of Resident: Markus Segovia ATTENDING PHYSICIAN STATEMENT I saw and evaluated the patient. I reviewed the resident's note and discussed the case with the resident. I agree with the resident's findings and plan as documented. SUBJECTIVE:currently asymptomatic. denies CP, SOB, fever, chills, N/V/C/D, palpitations, OBJECTIVE: Last Vital Signs Temp Pulse Resp BP Pulse Ox 98.4 F 102 H 18 98/66 98 07/04/16 14:00 07/04/16 16:00 07/04/16 16:00 07/04/16 16:00 07/04/16 10:00 General NAD CV S1 S2 irregular. +murmur Lungs CTA B/L no wheezing/rales/rhonchi Abdomen distreded, no fluid wave, dull to percussion, Extremities RUE AV fistula with palpable thrill, no pedal edema ASSESSMENT AND PLAN: 61 yo M with significant history of CAD s/p CABG, stents, and ICD placement, ESRD on dialysis (//Sun), COPD, HTN, HLD, and DM presented to the ER and was admitted for further evaluation of their emergent condition 1. New onset afib- rate controlled on amiodarone. titrate medications as tolerated by BP. [id number] 4. on heparin ggt. will start Coumadin bridging today. will monitor INR closely due to liver function. will need to monitor TSH , LFT and PFT while on amio. cardio on board. 2. Abdominal distention- low concern for SBP. u/s done in april consistent with ascites, also shows advanced hepatocellular disease. had paracentesis in the past negative for SBP 3. ESRD on HD- cont HD per normal schedule. remove as much volume as possible with hypotension. midodrine prior to HD 4. Hyperphosphatemia- improved after HD. on renelva 5. DM- controlled. cont levemir 12 units daily. titrate to optimize control. ISS 6. DVT ppx- hep ggt 7. stable for transfer to [facility] for continued cardiac monitoring The care of this patient involved high complexity decision making to prevent further life threatening deterioration of the patient's condition and/or to evaluate & treat vital organ system(s) failure or risk of failure. critical care time 45 minutes
[2016-07-04] MEDS ORDERED: HEMOQUE TEST 1 EACH EACH ONE (21:56)
[2016-07-04] MEDS ORDERED: INSULIN DETEMIR 100 UNITS/ML MDV SQ SCH (22:00)
[2016-07-04] MEDS ORDERED: SENNOSIDES 8.6MG TABLET (FP) PO SCH ×2 (22:00)
[2016-07-04] MEDS ORDERED: ATORVASTATIN CA 80 MG TABLET (FP) PO SCH (22:00)
[2016-07-04] MEDS ORDERED: SUCROFERRIC OXYHYDROXIDE 500 MG PO SCH (22:00)
[2016-07-04] MEDS: DOCUSATE SODIUM 100 MG CAPSULE (FP) PO SCH (22:03)
[2016-07-05] MEDS ORDERED: PT OWN MED DRAWER 7, Y5N ONE ×3 (06:00→17:37)
[2016-07-05] MEDS: INSULIN SLIDING SCALE (NOVOLOG) 1 VIAL SQ SCH ×3 (06:03→17:30)
[2016-07-05] MEDS: oxyCODONE HCL 5 MG TABLET PO PRN ×3 (06:45→22:23)
[2016-07-05] MEDS ORDERED: LEVOTHYROXINE NA 75 MCG TABLET (FP) PO SCH (07:00)
[2016-07-05 07:09] LABS: BASOPHIL 0.6 % (0-2.0); EOSINOPHIL 2.8 % (0-4.5); MCHC 30.9 g/dl (32.0-35.9); MEAN CELL VOLUME 93.8 fl (80-96); MEAN PLT VOLUME 9.8 fl (7.5-11.1); PLATELET COUNT 76 K/MM3 (134-434); RDW 16.5 % (11.9-15.9); WHITE BLOOD COUNT 5.7 K/mm3 (4.0-10.0)
[2016-07-05 07:25] LABS: INR 1.17 (0.82-1.09); PROTHROMBIN TIME (PATIENT) 12.9 SEC (9.98-11.88)
[2016-07-05 08:08] LABS: CREATININE 7.6 mg/dL (0.7-1.3)
[2016-07-05] MEDS: SEVELAMER CARBONATE 800 MG TAB (FP) PO SCH ×3 (09:32→17:01)
[2016-07-05] MEDS: AMIODARONE HCL 200 MG TABLET (FP) PO SCH ×2 (10:10→22:24)
[2016-07-05] MEDS: CARVEDILOL 6.25 MG TABLET (FP) PO SCH ×2 (10:11→22:24)
[2016-07-05] MEDS: MIDODRINE HCL 5 MG TABLET PO SCH ×2 (10:11→17:38)
[2016-07-05] MEDS: DOCUSATE SODIUM 100 MG CAPSULE (FP) PO SCH ×2 (10:11→22:24)
--- NOTE | 2016-07-05 10:45 | PN ---
Progress Note, Physician History of Present Illness: No issues overnight feels bloated and fluid overloaded - Current Medication List Current Medications: Active Medications Amiodarone HCl (Cordarone -) 200 mg PO BID [facility] Last Admin: 07/05/16 10:10 Dose: 200 mg Carvedilol (Coreg -) 6.25 mg PO BID [facility] Last Admin: 07/05/16 10:11 Dose: Not Given Docusate Sodium (Colace -) 100 mg PO BID [facility] Last Admin: 07/05/16 10:11 Dose: 100 mg Heparin Sodium (Porcine) (Heparin -) 1,000 unit IVPUSH PRN PRN PRN Reason: Heparin Heparin Sodium (Porcine) (Heparin -) 5,000 unit IVPUSH PRN PRN PRN Reason: Heparin Heparin Sodium (Porcine) 25, (000 unit/ Sodium Chloride) 500 mls @ 20 mls/hr IV TITR [facility]ACHEL; 1,000 UNIT/HR PRN Reason: Protocol Last Admin: 07/04/16 18:46 Dose: 20 mls/hr Insulin Aspart (Novolog Vial Sliding Scale -) 1 vial SQ TIDAC [facility] PRN Reason: Protocol Last Admin: 07/05/16 06:03 Dose: 3 units Insulin Detemir (Levemir Vial) 12 units SQ [facility] Last Admin: 07/04/16 22:03 Dose: 12 units Levothyroxine Sodium (Synthroid -) 75 mcg PO DAILY@0700 [facility] Last Admin: 07/05/16 06:03 Dose: 75 mcg Midodrine (Proamatine -) 5 mg PO BID-MID [facility] Last Admin: 07/05/16 10:11 Dose: 5 mg Non-Formulary Medication (Sucroferric Oxyhydroxide [Velphoro]) 500 mg PO TID [facility] Oxycodone HCl (Roxicodone -) 5 mg PO Q6H PRN PRN Reason: PAIN Last Admin: 07/05/16 06:45 Dose: 5 mg Senna (Senna -) 1 tab PO [facility] Last Admin: 07/04/16 22:03 Dose: 1 tab Sevelamer Carbonate (Renvela -) 1,600 mg PO TIDCM [facility] Last Admin: 07/05/16 09:32 Dose: 1,600 mg Warfarin Sodium (Coumadin -) 5 mg PO DAILY@1800 [facility] - Objective Vital Signs: Vital Signs Temperature 97.4 F L 07/05/16 06:00 Pulse Rate 92 H 07/05/16 08:00 Respiratory Rate 20 07/05/16 08:50 Blood Pressure 90/56 07/05/16 08:00 O2 Sat by Pulse Oximetry (%) 98 07/04/16 22:00 Gen: No acute distress, resting comfortably at bedside Head: Normocephalic, Atraumatic, No signs of trauma Eyes: PERRL, EOMI intact, Lazy eye noted per baseline Neck: Trachea midline, supple Lungs: CTA b/l, no wheezes, rhonchi, rales Cardiac: Irregularly irregular rhythm, S1 and S2 intact, no murmus, clicks, or rubs Abdomen: Moderately distended, soft, shifting dullness to percussion noted, no fluid wave on exam nontender. Organomegaly could not be assessed due to distention and ascites Extremities: Pulses strong and intact b/l throughout, Cap refill <2, No edema in lower extremities Labs: CBC, BMP 07/05/16 05:27 07/05/16 05:27 INR, PTT INR 1.17 (0.82-1.09) H 07/05/16 05:27 Assessment/Plan A/P: 61 yo M with significant history of CAD s/p CABG, stents, and ICD placement, ESRD on dialysis (T//Sun), COPD, HTN, HLD, and DM originally admitted to the ICU due to R chest pressure, palpitations, and weakness. Elevated troponins secondary to debrillator shock/demand ischemia. Neuro stop morphine restart percocet f/u CSF pending at this time Pulmonary --SpO2 >90% on RA noted --Monitor accordingly Cardiac --Dr. Guzman saw pt today --Would ideally optimize Carvedilol and administer ACEi/ARB, but hypotension limits this --Cont. Amiodarone 200 mg PO BID --Cont. Carvedilol 6.25mg PO BID --Cont. Heparin gtt --Cont. Midodrine; started as outpt started on coumadin yesterday will continue Renal: --HD per renal team --Cont. home meds (Renvela and Velphoro) daily labs patient wants dialysis today even though was dialyzed yesterday GI: --Currently receiving HD --F/U Hep C panel pending --Cont. home meds (Colace and Senna) Endo: --Cont. ISS --Cont. Levemir 12 units SQ HS --Monitor BG levels --Cont. Synthroid 75mcg PO qdaily for hypothyroidism FEN: Fluids: None currently no electrolyte issues Nutrition: Renal Diet Prophylaxis: --DVT ppx: Heparin gtt coumadin --GI ppx: Not indicated at current time PT consult Dispo: Transfer to telemetry
--- NOTE | 2016-07-05 11:44 | PN ---
Progress Note, Physician History of Present Illness: Continued dyspnea and abd distension, rate-controlled afib. - Current Medication List Current Medications: Active Medications Amiodarone HCl (Cordarone -) 200 mg PO BID [facility]EDS [facility] Last Admin: 07/05/16 10:10 Dose: 200 mg Carvedilol (Coreg -) 6.25 mg PO BID [facility] 234 BEDS AT [facility] Last Admin: 07/05/16 10:11 Dose: Not Given Docusate Sodium (Colace -) 100 mg PO BID [facility] 234 BEDS AT [facility] Last Admin: 07/05/16 10:11 Dose: 100 mg Heparin Sodium (Porcine) (Heparin -) 1,000 unit IVPUSH PRN PRN PRN Reason: Heparin Heparin Sodium (Porcine) (Heparin -) 5,000 unit IVPUSH PRN PRN PRN Reason: Heparin Heparin Sodium (Porcine) 25, (000 unit/ Sodium Chloride) 500 mls @ 20 mls/hr IV TITR [facility]; 1,000 UNIT/HR PRN Reason: Protocol Last Admin: 07/04/16 18:46 Dose: 20 mls/hr Insulin Aspart (Novolog Vial Sliding Scale -) 1 vial SQ TIDAC [facility] 234 BEDS AT [facility] PRN Reason: Protocol Last Admin: 07/05/16 06:03 Dose: 3 units Insulin Detemir (Levemir Vial) 12 units SQ [facility] Last Admin: 07/04/16 22:03 Dose: 12 units Levothyroxine Sodium (Synthroid -) 75 mcg PO DAILY@0700 [facility] 234 BEDS AT [facility] Last Admin: 07/05/16 06:03 Dose: 75 mcg Midodrine (Proamatine -) 5 mg PO BID-MID [facility]S [facility]CLUDE 234 BEDS AT [facility] Last Admin: 07/05/16 10:11 Dose: 5 mg Non-Formulary Medication (Sucroferric Oxyhydroxide [Velphoro]) 500 mg PO TID [facility] 234 BEDS AT [facility] Oxycodone HCl (Roxicodone -) 5 mg PO Q6H PRN PRN Reason: PAIN Last Admin: 07/05/16 06:45 Dose: 5 mg Senna (Senna -) 1 tab PO [facility] Last Admin: 07/04/16 22:03 Dose: 1 tab Sevelamer Carbonate (Renvela -) 1,600 mg PO TIDCM [facility]S [facility]CLUDE 234 BEDS AT [facility] Last Admin: 07/05/16 09:32 Dose: 1,600 mg Warfarin Sodium (Coumadin -) 5 mg PO DAILY@1800 [facility]CLUDE 234 BEDS AT [facility] - Objective Vital Signs: Vital Signs Temperature 97.4 F L 07/05/16 06:00 Pulse Rate 90 07/05/16 11:28 Respiratory Rate 20 07/05/16 08:50 Blood Pressure 90/56 07/05/16 08:00 O2 Sat by Pulse Oximetry (%) 96 07/05/16 11:28 Constitutional: Yes: No Distress, Calm, Thin Neck: Yes: Supple Cardiovascular: Yes: Pulse Irregular Respiratory: Yes: Regular, Diminished Gastrointestinal: Yes: Normal Bowel Sounds, Ascites, Distention Edema: No Labs: CBC, BMP 07/05/16 05:27 07/05/16 05:27 INR, PTT INR 1.17 (0.82-1.09) H 07/05/16 05:27 - ....Imaging Chest X-ray: Report Reviewed (Rt base effusion with ATX) Problem List - Problems (1) Atrial fibrillation with rapid ventricular response Code(s): I48.91 - UNSPECIFIED ATRIAL FIBRILLATION (2) Cirrhosis Code(s): K74.60 - UNSPECIFIED CIRRHOSIS OF LIVER Qualifiers: Hepatic cirrhosis type: unspecified hepatic cirrhosis Ascites presence : with ascites Qualified Code(s): K74.60 - Unspecified cirrhosis of liver (3) Coronary artery disease Code(s): I25.10 - ATHSCL HEART DISEASE OF [place] CORONARY ARTERY W/O ANG PCTRS Qualifiers: Coronary Disease-Associated Artery/Lesion type: [place] artery [place] vs. transplanted heart: [place] heart Associated angina: with stable angina Qualified Code(s): I25.119 - Atherosclerotic heart disease of [place] coronary artery with unspecified angina pectoris (4) Diabetes mellitus Code(s): E11.9 - TYPE 2 DIABETES MELLITUS WITHOUT COMPLICATIONS Qualifiers: Diabetes mellitus type: type 1 Diabetes mellitus complication status: with kidney complications Diabetes mellitus complication detail: with chronic kidney disease Chronic kidney disease stage: on chronic dialysis Qualified Code(s): E10.22 - Type 1 diabetes mellitus with diabetic chronic kidney disease; N18.1 - Chronic kidney disease, stage 1 (5) ESRD (end stage renal disease) Code(s): N18.6 - END STAGE RENAL DISEASE (6) HTN (hypertension) Code(s): I10 - ESSENTIAL (PRIMARY) HYPERTENSION Qualifiers: Hypertension type: essential hypertension Qualified Code(s): I10 - Essential (primary) hypertension (7) Hypothyroidism Code(s): E03.9 - HYPOTHYROIDISM, UNSPECIFIED Qualifiers: Hypothyroidism type: acquired Qualified Code(s): E03.9 - Hypothyroidism, unspecified (8) ICD (implantable cardioverter-defibrillator) discharge Code(s): Z45.02 - ENCNTR FOR ADJUST AND MGMT OF AUTOMATIC IMPLNTBL CARD DEFIB (9) Ventricular tachycardia Code(s): I47.2 - VENTRICULAR TACHYCARDIA (10) S/P coronary artery stent placement Code(s): Z95.5 - PRESENCE OF CORONARY ANGIOPLASTY IMPLANT AND GRAFT (11) Demand ischemia Code(s): I24.8 - OTHER FORMS OF ACUTE ISCHEMIC HEART DISEASE (12) Ischemic dilated cardiomyopathy Code(s): I25.5 - ISCHEMIC CARDIOMYOPATHY (13) Ascites Code(s): R18.8 - OTHER ASCITES Qualifiers: Ascites type: other type Qualified Code(s): R18.8 - Other ascites Assessment/Plan Echocardiography dated 04/28/16 revealed LV systolic function moderate/severely reduced, akinesis of basal and mid kandy-septum, apical anterior and apical inferior mustafa; left atrium moderately dilated; mild to moderate mitral annular calcification, mild mitral regurgitaion, moderate tricuspid regurgitation, RV systolic pressure elevated; mild aortic sclerosis. Abdominal U/S dated 04/2016 revealed ascites, heterogeneous liver and splenomegaly consistent with advanced hepato-cellular disease 1. Paroxysmal atrial fibrillation with improved rate-control, [id number] score of 4 2. Syncope referable to sustained VT/VF post appropriate ICD therapy 3. CAD post DE/PCI(stent)/CABG, angina pectoris with demand ischemic injury 4. Ischemic dilated cardiomyopathy 5. Post Medtronic ICD implant 6. HTN history currently hypotensive on Midodrine therapy 7. DM 8. Hypothyroidism 9. ESRD on HD 10. Advanced liver disease, unclear if hepatic cirrhosis with ascites 11. Anemia of CKD, Thrombocytopenia PLAN: 1. Ideally would uptitrate Carvedilol currently at 6.25 bid and initiate ACEI or ARBS, but limited by hypotension 2. Continue Amiodarone 200 bid but limiting factor would be CLD (chronic liver disease) severity 3. Heparin and Coumadin as per INR with caution and if varices are present in conjunction with the above noted CLD A/C might be contraindicated, to be discussed with the primary team 4. Continue Midodrine, replete K 5. HD as per renal service with ultrafiltration as tolerated
[2016-07-05] MEDS: POTASSIUM CHLORIDE TABS 20 MEQ TABLET.ER (FP) PO ONE ×2 (12:35→15:01)
--- NOTE | 2016-07-05 13:14 | PN ---
Teaching Attending Note Name of Resident: Gonzalo Thibodeaux ATTENDING PHYSICIAN STATEMENT I saw and evaluated the patient. I reviewed the resident's note and discussed the case with the resident. I agree with the resident's findings and plan as documented. SUBJECTIVE: Pt seen and examined in the ICU. Dialyzed yesterday but still short of breath with abdominal distention today. No palpitations or chest pain. OBJECTIVE: Last Vital Signs Temp Pulse Resp BP Pulse Ox 98.6 F 87 18 96/58 96 07/05/16 11:55 07/05/16 13:00 07/05/16 13:00 07/05/16 13:00 07/05/16 11:28 Intake & Output 07/02/16 07/03/16 07/04/16 07/05/16 23:59 23:59 23:59 23:59 Intake Total 50 590 1290 500 Output Total 0 Balance 50 590 1290 500 Weight 158 lb 4.67 oz 2.621 oz 164 lb 14.492 oz 164 lb 0.383 oz Gen: mildly tachypneic at rest Heart: irregular Lung: decreased breath sounds at the bases Abd: softly distended, nontender Ext: no edema CBC, BMP 07/05/16 05:27 07/05/16 05:27 Active Medications Amiodarone HCl (Cordarone -) 200 mg PO BID [facility] Last Admin: 07/05/16 10:10 Dose: 200 mg Carvedilol (Coreg -) 6.25 mg PO BID [facility] Last Admin: 07/05/16 10:11 Dose: Not Given Docusate Sodium (Colace -) 100 mg PO BID [facility] Last Admin: 07/05/16 10:11 Dose: 100 mg Heparin Sodium (Porcine) (Heparin -) 1,000 unit IVPUSH PRN PRN PRN Reason: Heparin Heparin Sodium (Porcine) (Heparin -) 5,000 unit IVPUSH PRN PRN PRN Reason: Heparin Heparin Sodium (Porcine) 25, (000 unit/ Sodium Chloride) 500 mls @ 20 mls/hr IV TITR [facility]ACHEL; 1,000 UNIT/HR PRN Reason: Protocol Last Admin: 07/04/16 18:46 Dose: 20 mls/hr Insulin Aspart (Novolog Vial Sliding Scale -) 1 vial SQ TIDAC [facility] PRN Reason: Protocol Last Admin: 07/05/16 11:43 Dose: 2 units Insulin Detemir (Levemir Vial) 12 units SQ HS [facility] Last Admin: 07/04/16 22:03 Dose: 12 units Levothyroxine Sodium (Synthroid -) 75 mcg PO DAILY@0700 [facility] Last Admin: 07/05/16 06:03 Dose: 75 mcg Midodrine (Proamatine -) 5 mg PO BID-MID [facility] Last Admin: 07/05/16 10:11 Dose: 5 mg Non-Formulary Medication (Sucroferric Oxyhydroxide [Velphoro]) 500 mg PO TID [facility] Oxycodone HCl (Roxicodone -) 5 mg PO Q6H PRN PRN Reason: PAIN Last Admin: 07/05/16 06:45 Dose: 5 mg Senna (Senna -) 1 tab PO HS [facility] Last Admin: 07/04/16 22:03 Dose: 1 tab Sevelamer Carbonate (Renvela -) 1,600 mg PO TIDCM [facility] Last Admin: 07/05/16 11:50 Dose: 1,600 mg Warfarin Sodium (Coumadin -) 5 mg PO DAILY@1800 [facility] ASSESSMENT AND PLAN: Syncope VTach/VFib s/p ICD discharge Paroxysmal Atrial Fibrillation Ischemic Cardiomyopathy ESRD on HD Ascites Thrombocytopenia - HD per renal with ultrafiltration - rate/rhythm control with amiodarone, coreg - continue anticoagulation - O2 to keep SpO2 >90% - monitor CBC - keep K > 4, Mg > 2 - can monitor on telemetry
[2016-07-05 14:12] LABS: HEP B SURFACE AB Non Reactive (.)
--- NOTE | 2016-07-05 14:34 | PN ---
Physical Exam: SUBJECTIVE: Patient seen and examined at bedside. He continues to c/o occasional palpitations and he feels bloated in his abdomen despite having 2 bowel movement in the morning. Denied chest pain, n/v, fever or chills, abd pain, or urinary symptom. OBJECTIVE: Vital Signs Period Temp Pulse Resp BP Sys/Lopez Pulse Ox Last 24 Hr 97.4 F-98.6 F 87-112 18-21 70-105/45-79 96-98 GENERAL: The patient is awake, alert, and fully oriented, speak full sentences, in no acute distress or active pain HEAD: Normal with no signs of trauma. EYES: sclera anicteric, conjunctiva clear. ENT: oropharynx clear without exudates, moist mucous membranes. NECK: Trachea midline, full range of motion, supple. LUNGS: Breath sounds equal, clear to auscultation bilaterally, no wheezes, no crackles, no accessory muscle use. HEART: regular rate and irregular rhythm, S1, S2 without murmur, rub or gallop. ABDOMEN: soft but moderately distended, tympanic in LUQ and LLQ, dull in RUQ, hypoactive bowel sounds, nontender, no guarding or rebound tenderness, ?+fluid wave, difficult to assess hepatomegaly and splenomegaly due to distended abd EXTREMITIES: 2+ pulses, no edema. PSYCH: Normal mood, normal affect. SKIN: Warm, dry, normal turgor, no rashes or lesions noted Laboratory Last Values (before HD) WBC 5.7 K/mm3 (4.0-10.0) 07/05/16 05:27 Corrected WBC (auto) Cancelled 07/03/16 09:10 RBC 3.15 M/mm3 (4.00-5.60) L 07/05/16 05:27 Hgb 9.1 GM/dL (11.7-16.9) L D 07/05/16 05:27 Hct 29.5 % (35.4-49) L 07/05/16 05:27 MCV 93.8 fl (80-96) 07/05/16 05:27 MCHC 30.9 g/dl (32.0-35.9) L 07/05/16 05:27 RDW 16.5 % (11.9-15.9) H 07/05/16 05:27 Plt Count 76 K/MM3 (134-434) L 07/05/16 05:27 MPV 9.8 fl (7.5-11.1) 07/05/16 05:27 Neutrophils % 76.0 % (42.8-82.8) 07/05/16 05:27 Lymphocytes % 8.2 % (8-40) 07/05/16 05:27 Monocytes % 12.4 % (3.8-10.2) H 07/05/16 05:27 Eosinophils % 2.8 % (0-4.5) 07/05/16 05:27 Basophils % 0.6 % (0-2.0) 07/05/16 05:27 Differential Comment Cancelled 07/03/16 09:10 Smudge Cells Cancelled 07/03/16 09:10 Platelet Estimate Cancelled 07/03/16 09:10 Platelet Comment Cancelled 07/03/16 09:10 Platelet Comment Cancelled 07/03/16 09:10 RBC Morphology Cancelled 07/03/16 09:10 INR 1.17 (0.82-1.09) H 07/05/16 05:27 PTT (Actin FS) 50.1 SECONDS (26.9-34.4) H 07/05/16 05:27 Sodium 138 mmol/L (136-145) 07/05/16 05:27 Potassium 3.7 mmol/L (3.5-5.1) 07/05/16 05:27 Chloride 100 mmol/L (98-107) 07/05/16 05:27 Carbon Dioxide 25 mmol/L (21-32) 07/05/16 05:27 Anion Gap 13 (8-16) 07/05/16 05:27 BUN 53 mg/dL (7-18) H D 07/05/16 05:27 Creatinine 7.6 mg/dL (0.7-1.3) H* D 07/05/16 05:27 Creat Clearance w eGFR 16.73 (>60) 07/04/16 11:00 POC Glucometer 191.82723 UNITS (()) 07/05/16 11:31 Random Glucose 187 mg/dL (74-106) H 07/05/16 05:27 Calcium 8.0 mg/dL (8.5-10.1) L 07/05/16 05:27 Phosphorus 2.6 mg/dL (2.5-4.9) D 07/04/16 11:00 Magnesium 1.9 mg/dL (1.8-2.4) D 07/04/16 11:00 Total Bilirubin 0.9 mg/dL (0.2-1.0) D 07/04/16 11:00 AST 9 U/L (15-37) L 07/04/16 11:00 ALT 17 U/L (12-78) 07/04/16 11:00 Alkaline Phosphatase 76 U/L (45-117) 07/04/16 11:00 Creatine Kinase 23 IU/L (39-308) L 07/04/16 07:20 Troponin I 0.05 ng/ml (0.00-0.05) 07/04/16 07:20 B-Natriuretic Peptide 59553.45 pg/ml (5-125) H 07/02/16 14:40 Total Protein 8.6 g/dl (6.4-8.2) H D 07/04/16 11:00 Albumin 4.3 g/dl (3.4-5.0) D 07/04/16 11:00 TSH 4.00 uIU/ml (0.358-3.74) H D 07/04/16 07:20 Stool Occult Blood Trace (NEGATIVE) 07/03/16 03:20 Hepatitis A IgM Ab Negative (Negative) 07/04/16 07:20 Hepatitis A Ab Total Positive (Negative) H 07/04/16 07:20 Hep Bs Antigen Negative (Negative) 07/04/16 07:20 Hep Bs Antibody Non reactive (.) 07/04/16 07:20 Hep B Core Total Ab Negative (Negative) 07/04/16 07:20 Hepatitis C Antibody <0.1 s/co ratio (0.0-0.9) 07/04/16 07:20 Active Medications Generic Name Dose Route Start Last Admin Trade Name Freq PRN Reason Stop Dose Admin Amiodarone HCl 200 mg 07/04/16 22:00 07/05/16 10:10 Cordarone - PO 200 mg BID RACHEL Administration Carvedilol 6.25 mg 07/04/16 22:00 07/05/16 10:11 Coreg - PO Not Given BID RACHEL Docusate Sodium 100 mg 07/04/16 22:00 07/05/16 10:11 Colace - PO 100 mg BID RACHEL Administration Heparin Sodium (Porcine) 1,000 unit 07/04/16 16:18 Heparin - IVPUSH PRN PRN Heparin Heparin Sodium (Porcine) 5,000 unit 07/04/16 16:18 Heparin - IVPUSH PRN PRN Heparin Heparin Sodium (Porcine) 25, 500 mls @ 20 mls/hr 07/04/16 16:18 07/04/16 18:46 000 unit/ Sodium Chloride IV 20 mls/hr TITR [facility] Administration Protocol 1,000 UNIT/HR Insulin Aspart 1 vial 07/04/16 16:30 07/05/16 11:43 Novolog Vial Sliding Scale - SQ 2 units TIDAC [facility] Administration Protocol Insulin Detemir 12 units 07/04/16 22:00 07/04/16 22:03 Levemir Vial SQ 12 units HS [facility] Administration Levothyroxine Sodium 75 mcg 07/05/16 07:00 07/05/16 06:03 Synthroid - PO 75 mcg DAILY@0700 [facility] Administration Midodrine 5 mg 07/04/16 18:00 07/05/16 10:11 Proamatine - PO 5 mg BID-MID [facility] Administration Non-Formulary Medication 500 mg 07/04/16 22:00 Sucroferric Oxyhydroxide [Velphoro] PO TID [facility] Oxycodone HCl 5 mg 07/04/16 14:19 07/05/16 06:45 Roxicodone - PO 5 mg Q6H PRN Administration PAIN Senna 1 tab 07/04/16 22:00 07/04/16 22:03 Senna - PO 1 tab HS [facility] Administration Sevelamer Carbonate 1,600 mg 07/04/16 17:30 07/05/16 11:50 Renvela - PO 1,600 mg TIDCM [facility] Administration Warfarin Sodium 5 mg 07/05/16 18:00 Coumadin - PO DAILY@1800 [facility] ASSESSMENT/PLAN: 61 y M with h/o anemia, COPD, HTN, HLD, DM, CVA, CAD s/p stent and CABG, PPM, ESRD who presented to the ED for generalized weakness, palpitations, R sided chest pressure and SOB. In the ED he's found to have new onset afib with RVR and he's now on cardiac monitoring. A-fib, new onset with controlled rate - [id number] = 4 - troponin trended down - normal TSH and no thrombus seen on ECHO - cont. amiodarone - normal LFT - will need PFT for baseline - cont. carvedilol, midodrine, heparin gtt - on coumadin 5mg PO daily - risk of varices - will f/u with GI ESRD on HD - cont. scheduled HD - cont. renvela and velphoro Abdominal ascite likely 2/2 liver cirrhosis - h/o paracentesis but no SBP - h/o Hep A, resolved - GI consultation IDDM - cont. levemir 12 units HS and ISS Hypothyroidism - cont. synthroid FEN - PO water to maintain BP - lytes normal after HD - renal diet Prophylaxis - DVT: on heparin gtt - GI: not indicated - deconditioning: early ambulation; PT Dispo: plan d/c after GI evaluation. Visit type - Emergency Visit Emergency Visit: No - New Patient This patient is new to me today: No - Critical Care Critical Care patient: Yes Total Critical Care Time (in minutes): 45 Critical Care Statement: The care of this patient involved high complexity decision making to prevent further life threatening deterioration of the patient 's condition and/or to evalute & treat vital organ system(s) failure or risk of failure. - Discharge Referral Referred to [facility] Med P.C.: No
--- NOTE | 2016-07-05 15:54 | PN ---
Teaching Attending Note Name of Resident: Markus Segovia ATTENDING PHYSICIAN STATEMENT I saw and evaluated the patient. I reviewed the resident's note and discussed the case with the resident. I agree with the resident's findings and plan as documented. SUBJECTIVE:had episode of palpitations in the evening. denies abdominal pain, N/ V/C/D, CP, SOB, fever, chills, cough. states he had hemoptysis in the past when he was being treated for PNA. never had EGD, states all previous workup was done here and nothing seen. states he was told a year ago his liver was normal and was not aware he had liver disease, however had paracentesis done in 2011 OBJECTIVE: Last Vital Signs Temp Pulse Resp BP Pulse Ox 98.6 F 88 18 94/70 96 07/05/16 11:55 07/05/16 14:05 07/05/16 14:05 07/05/16 14:05 07/05/16 11:28 General NAD CV S1 S2 irregular. +murmur Lungs CTA B/L no wheezing/rales/rhonchi Abdomen distended, no fluid wave, dull to percussion, NT Extremities RUE AV fistula with palpable thrill, no pedal edema ASSESSMENT AND PLAN: 61 yo M with significant history of CAD s/p CABG, stents, and ICD placement, ESRD on dialysis (//Sun), COPD, HTN, HLD, and DM presented to the ER and was admitted for further evaluation of their emergent condition 1. New onset afib- rate controlled on amiodarone. titrate medications as tolerated by BP. [id number] 4. on heparin ggt. started on coumadin bridging however after d/w cardio agree that concern for esophageal varices and with advanced liver disease may be contraindicated. will consult GI. hold coumadin at this time. titrate up heart medications as tolerated by BP 2. Advanced liver disease- with ascites. low concern for SBP (no pain, encephalitis and afebrile) do not think that paracentesis is necessary at this time to r/o SBP as well as pt is not symptomatic. unclear etiology, will need to call PMD for previous workup. GI consulted 3. ESRD on HD- cont HD per normal schedule. receiving HD now. goal for 2L removal. midodrine prior to HD 4. Hyperphosphatemia- improved after HD. on renelva 5. DM- controlled. cont levemir 12 units daily. titrate to optimize control. ISS 6. DVT ppx- hep ggt 7. stable for transfer to [facility] for continued cardiac monitoring The care of this patient involved high complexity decision making to prevent further life threatening deterioration of the patient's condition and/or to evaluate & treat vital organ system(s) failure or risk of failure. critical care time 42 minutes
[2016-07-05] MEDS: HEPARIN - 25,000 UNIT in SODIUM CHLORIDE 495 ML IV SCH ×2 (16:59→22:25)
[2016-07-05] MEDS ORDERED: WARFARIN NA 5 MG TABLET (UD) PO SCH (18:00)
--- NOTE | 2016-07-05 18:17 | PN ---
Progress Note (short form) - Note Progress Note: Patient is feeling better this evening after completing additional dialysis for ultrafiltration. Denies chest pain or shortness of breath. The heart rate appears under control with amiodarone. He reports decent appetite. Vitals: Vital Signs (72 hours) 07/02/16 07/02/16 07/02/16 18:19 18:24 21:54 Temperature 98.2 F 97.7 F Pulse Rate 132 H 122 H 94 H Respiratory 18 20 Rate Blood Pressure 110/62 106/56 O2 Sat by Pulse 98 Oximetry (%) 07/02/16 07/03/16 07/03/16 22:00 01:00 01:25 Temperature 98.5 F Pulse Rate 86 Respiratory 18 18 Rate Blood Pressure 93/53 O2 Sat by Pulse 100 100 Oximetry (%) 07/03/16 07/03/16 07/03/16 01:36 05:00 09:00 Temperature 97.8 F Pulse Rate 79 Respiratory 18 17 19 Rate Blood Pressure 92/50 O2 Sat by Pulse 100 99 Oximetry (%) 07/03/16 07/03/16 07/03/16 09:21 14:01 14:02 Temperature 98.8 F 93 F L Pulse Rate 88 88 93 H Respiratory 19 19 Rate Blood Pressure 98/54 105/67 O2 Sat by Pulse 99 100 Oximetry (%) 07/03/16 07/03/16 07/03/16 14:27 15:30 15:45 Temperature 97.5 F L 97.3 F L Pulse Rate 87 84 84 Respiratory 18 18 18 Rate Blood Pressure 112/54 106/66 O2 Sat by Pulse 100 100 Oximetry (%) 07/03/16 07/03/16 07/03/16 17:00 18:00 18:55 Temperature Pulse Rate 86 94 H Respiratory 19 21 Rate Blood Pressure 97/62 97/62 O2 Sat by Pulse 97 Oximetry (%) 07/03/16 07/03/16 07/04/16 20:00 22:00 00:00 Temperature 97.4 F L Pulse Rate 90 101 H 104 H Respiratory 20 20 20 Rate Blood Pressure 112/65 113/69 70/52 O2 Sat by Pulse 97 Oximetry (%) 07/04/16 07/04/16 07/04/16 00:15 01:00 02:06 Temperature 97 F L Pulse Rate 94 H 93 H 95 H Respiratory 20 21 20 Rate Blood Pressure 86/61 87/65 103/67 O2 Sat by Pulse Oximetry (%) 07/04/16 07/04/16 07/04/16 04:00 06:00 07:05 Temperature 97.6 F Pulse Rate 94 H 90 93 H Respiratory 21 20 20 Rate Blood Pressure 93/62 96/66 87/59 O2 Sat by Pulse Oximetry (%) 07/04/16 07/04/16 07/04/16 07:25 07:55 08:00 Temperature Pulse Rate 88 90 94 H Respiratory 18 18 24 Rate Blood Pressure 98/58 99/59 93/59 O2 Sat by Pulse Oximetry (%) 07/04/16 07/04/16 07/04/16 08:25 08:55 09:00 Temperature Pulse Rate 89 93 H Respiratory 20 20 24 Rate Blood Pressure 105/59 119/101 O2 Sat by Pulse 98 Oximetry (%) 07/04/16 07/04/16 07/04/16 09:25 09:55 10:00 Temperature 98.1 F Pulse Rate 86 95 H 96 H Respiratory 18 18 21 Rate Blood Pressure 100/64 105/80 92/70 O2 Sat by Pulse 98 Oximetry (%) 07/04/16 07/04/16 07/04/16 10:25 10:30 12:00 Temperature Pulse Rate 84 97 H 92 H Respiratory 18 18 19 Rate Blood Pressure 92/76 102/46 131/71 O2 Sat by Pulse Oximetry (%) 07/04/16 07/04/16 07/04/16 14:00 16:00 18:00 Temperature 98.4 F 98.0 F Pulse Rate 95 H 102 H 95 H Respiratory 24 18 18 Rate Blood Pressure 103/50 98/66 94/55 O2 Sat by Pulse Oximetry (%) 07/04/16 07/04/16 07/04/16 20:00 22:00 22:49 Temperature 97.8 F Pulse Rate 112 H 95 H 98 H Respiratory 20 20 Rate Blood Pressure 92/79 105/54 90/56 O2 Sat by Pulse 98 Oximetry (%) 07/04/16 07/05/16 07/05/16 23:11 00:00 02:00 Temperature 97.6 F Pulse Rate 107 H 94 H 97 H Respiratory 21 20 20 Rate Blood Pressure 89/45 98/60 70/46 O2 Sat by Pulse Oximetry (%) 07/05/16 07/05/16 07/05/16 02:16 06:00 08:00 Temperature 97.4 F L Pulse Rate 90 88 92 H Respiratory 20 20 19 Rate Blood Pressure 91/62 85/57 90/56 O2 Sat by Pulse Oximetry (%) 07/05/16 07/05/16 07/05/16 08:50 10:00 11:28 Temperature 97.5 F L Pulse Rate 89 90 Respiratory 20 19 Rate Blood Pressure 86/61 O2 Sat by Pulse 96 Oximetry (%) 07/05/16 07/05/16 07/05/16 11:55 12:00 12:30 Temperature 98.6 F Pulse Rate 88 91 H 91 H Respiratory 18 19 18 Rate Blood Pressure 97/67 97/67 93/60 O2 Sat by Pulse Oximetry (%) 07/05/16 07/05/16 07/05/16 13:00 13:30 14:00 Temperature Pulse Rate 87 93 H 88 Respiratory 18 18 18 Rate Blood Pressure 96/58 88/68 90/73 O2 Sat by Pulse Oximetry (%) 07/05/16 07/05/16 14:05 16:00 Temperature Pulse Rate 88 19 L Respiratory 18 20 Rate Blood Pressure 94/70 98/67 O2 Sat by Pulse Oximetry (%) Lungs; coarse breath sound in both lung viera Heart: S1 S2 irregular Abd: Obese, soft, non-tender. (Less distended today) Ext: Trace bipedal edema Access: Positive bruit right arm AV fistula Labs; CBCD WBC 5.7 K/mm3 (4.0-10.0) 07/05/16 05:27 RBC 3.15 M/mm3 (4.00-5.60) L 07/05/16 05:27 Hgb 9.1 GM/dL (11.7-16.9) L D 07/05/16 05:27 Hct 29.5 % (35.4-49) L 07/05/16 05:27 MCV 93.8 fl (80-96) 07/05/16 05:27 MCHC 30.9 g/dl (32.0-35.9) L 07/05/16 05:27 RDW 16.5 % (11.9-15.9) H 07/05/16 05:27 Plt Count 76 K/MM3 (134-434) L 07/05/16 05:27 MPV 9.8 fl (7.5-11.1) 07/05/16 05:27 CMP Sodium 138 mmol/L (136-145) 07/05/16 05:27 Potassium 3.7 mmol/L (3.5-5.1) 07/05/16 05:27 Chloride 100 mmol/L (98-107) 07/05/16 05:27 Carbon Dioxide 25 mmol/L (21-32) 07/05/16 05:27 Anion Gap 13 (8-16) 07/05/16 05:27 BUN 53 mg/dL (7-18) H D 07/05/16 05:27 Creatinine 7.6 mg/dL (0.7-1.3) H* D 07/05/16 05:27 Creat Clearance w eGFR 16.73 (>60) 07/04/16 11:00 Calcium 8.0 mg/dL (8.5-10.1) L 07/05/16 05:27 Total Bilirubin 0.9 mg/dL (0.2-1.0) D 07/04/16 11:00 AST 9 U/L (15-37) L 07/04/16 11:00 ALT 17 U/L (12-78) 07/04/16 11:00 Alkaline Phosphatase 76 U/L (45-117) 07/04/16 11:00 Total Protein 8.6 g/dl (6.4-8.2) H D 07/04/16 11:00 Albumin 4.3 g/dl (3.4-5.0) D 07/04/16 11:00 A/P;;61 year old man with end stage renal disease admitted with new onset atrial fibrillation and shortness of breath. Patient is scheduled for regular hemodialysis in a.m with ultrafiltration goal of 2.5kg as tolerated. Will follow. Problem List - Problems (1) Atrial fibrillation with rapid ventricular response Code(s): I48.91 - UNSPECIFIED ATRIAL FIBRILLATION (2) Demand ischemia Code(s): I24.8 - OTHER FORMS OF ACUTE ISCHEMIC HEART DISEASE (3) Diabetes mellitus Code(s): E11.9 - TYPE 2 DIABETES MELLITUS WITHOUT COMPLICATIONS Qualifiers: Diabetes mellitus type: type 1 Diabetes mellitus complication status: with kidney complications Diabetes mellitus complication detail: with chronic kidney disease Chronic kidney disease stage: on chronic dialysis Qualified Code(s): E10.22 - Type 1 diabetes mellitus with diabetic chronic kidney disease; N18.1 - Chronic kidney disease, stage 1 (4) ESRD (end stage renal disease) Assessment/Plan: Patient had two hours of hemodialysis/ultra-filtration today and he is scheduled for repeat hemodialysis in a.m. Code(s): N18.6 - END STAGE RENAL DISEASE
[2016-07-05] MEDS ORDERED: HEPARIN NA (PORCINE) 5,000 UNITS/ML 1ML VIAL IVPUSH PRN ×3 (20:11)
[2016-07-05] MEDS ORDERED: SUCROFERRIC OXYHYDROXIDE 500 MG PO SCH (22:00)
[2016-07-05] MEDS: SENNOSIDES 8.6MG TABLET (FP) PO SCH (22:24)
[2016-07-05] MEDS: INSULIN DETEMIR 100 UNITS/ML MDV SQ SCH (22:27)
[2016-07-06] MEDS ORDERED: EPOETIN ALFA 2,000 UNITS/1 ML VIAL IVPUSH ONE (06:00)
[2016-07-06] MEDS: oxyCODONE HCL 5 MG TABLET PO PRN ×3 (06:36→17:22)
[2016-07-06] MEDS: LEVOTHYROXINE NA 75 MCG TABLET (FP) PO SCH (06:58)
[2016-07-06] MEDS: MIDODRINE HCL 5 MG TABLET PO SCH ×3 (06:58→17:25)
[2016-07-06 08:44] LABS: MCH 29.7 pg (25.7-33.7); MCHC 31.6 g/dl (32.0-35.9); MEAN CELL VOLUME 93.9 fl (80-96); MEAN PLT VOLUME 9.3 fl (7.5-11.1); PLATELET COUNT 71 K/MM3 (134-434); RDW 16.6 % (11.9-15.9); WHITE BLOOD COUNT 5.4 K/mm3 (4.0-10.0)
[2016-07-06] MEDS ORDERED: EPOETIN ALFA 10,000 UNIT/1 ML VIAL IVPUSH ONE (09:00)
[2016-07-06 09:08] LABS: INR 1.17 (0.82-1.09); PROTHROMBIN TIME (PATIENT) 12.9 SEC (9.98-11.88)
[2016-07-06 09:10] LABS: ACTIVATED PTT 35.7 SECONDS (26.9-34.4)
[2016-07-06 09:15] LABS: ALBUMIN 3.4 g/dl (3.4-5.0); BILIRUBIN,TOTAL 0.4 mg/dL (0.2-1.0); CALCIUM 8.2 mg/dL (8.5-10.1); MAGNESIUM 2.4 mg/dL (1.8-2.4); PHOSPHOROUS 6.1 mg/dL (2.5-4.9); TOT PROT 7.3 g/dl (6.4-8.2)
[2016-07-06] MEDS: SEVELAMER CARBONATE 800 MG TAB (FP) PO SCH ×3 (09:16→17:23)
[2016-07-06 09:29] LABS: CREATININE 7.6 mg/dL (0.7-1.3)
[2016-07-06] MEDS: CARVEDILOL 6.25 MG TABLET (FP) PO SCH ×2 (10:00→21:29)
--- NOTE | 2016-07-06 10:34 | PN ---
Progress Note, Physician History of Present Illness: pulmonary alert,feeling better,-cp,-sob. pt just finished dialysis tolerated well - Current Medication List Current Medications: Active Medications Amiodarone HCl (Cordarone -) 200 mg PO BID ON LICENSE OF [facility] Last Admin: 07/05/16 22:24 Dose: 200 mg Carvedilol (Coreg -) 6.25 mg PO BID ON LICENSE OF [facility] Last Admin: 07/05/16 22:24 Dose: 6.25 mg Docusate Sodium (Colace -) 100 mg PO BID ON LICENSE OF [facility] Last Admin: 07/05/16 22:24 Dose: 100 mg Heparin Sodium (Porcine) (Heparin -) 1,000 unit IVPUSH PRN PRN PRN Reason: Heparin Heparin Sodium (Porcine) (Heparin -) 5,000 unit IVPUSH PRN PRN PRN Reason: Heparin Heparin Sodium (Porcine) 25, (000 unit/ Sodium Chloride) 500 mls @ 20 mls/hr IV TITR RACHEL; 1,000 UNIT/HR PRN Reason: Protocol Last Admin: 07/05/16 22:25 Dose: 20 mls/hr Insulin Aspart (Novolog Vial Sliding Scale -) 1 vial SQ TIDAC ON LICENSE OF [facility] PRN Reason: Protocol Insulin Detemir (Levemir Vial) 12 units SQ [facility] Last Admin: 07/05/16 22:27 Dose: 12 units Levothyroxine Sodium (Synthroid -) 75 mcg PO DAILY@0700 ON LICENSE OF [facility] Last Admin: 07/06/16 06:58 Dose: 75 mcg Midodrine (Proamatine -) 5 mg PO BID-MID ON LICENSE OF [facility] Last Admin: 07/06/16 09:15 Dose: Not Given Non-Formulary Medication (Sucroferric Oxyhydroxide [Velphoro]) 500 mg PO TID ON LICENSE OF [facility] Oxycodone HCl (Roxicodone -) 5 mg PO Q6H PRN PRN Reason: PAIN Last Admin: 07/06/16 06:36 Dose: 5 mg Senna (Senna -) 1 tab PO HS ON LICENSE OF [facility] Last Admin: 07/05/16 22:24 Dose: 1 tab Sevelamer Carbonate (Renvela -) 1,600 mg PO TIDCM ON LICENSE OF [facility] Last Admin: 07/06/16 09:16 Dose: Not Given - Objective Vital Signs: Vital Signs Temperature 97.8 F 07/06/16 09:00 Pulse Rate 99 H 07/06/16 10:11 Respiratory Rate 18 07/06/16 10:11 Blood Pressure 96/52 07/06/16 10:11 O2 Sat by Pulse Oximetry (%) 95 07/06/16 10:00 Constitutional: Yes: Well Nourished, Calm Eyes: Yes: WNL HENT: Yes: WNL Neck: Yes: WNL Cardiovascular: Yes: Pulse Irregular, S1, S2 Respiratory: Yes: Diminished Gastrointestinal: Yes: Soft, Distention Extremities: Yes: WNL Edema: No Labs: CBC, BMP 07/06/16 07:00 07/06/16 07:00 INR, PTT INR 1.17 (0.82-1.09) H 07/06/16 07:00 Assessment/Plan ASSESSMENT AND PLAN: Syncope VTach/VFib s/p ICD discharge Paroxysmal Atrial Fibrillation Ischemic Cardiomyopathy ESRD on HD Ascites Thrombocytopenia - HD per renal - rate/rhythm control with amiodarone, coreg - anticoagulation - O2 to keep SpO2 >90% - monitor CBC ,PLT CT DR SANTANA
--- NOTE | 2016-07-06 11:23 | PN ---
Progress Note, Physician Chief Complaint: Events noted Had HD this morning Not in distress History of Present Illness: Patient was seen and examined. Awake and alert. Chart was reviewed Denies chest pain, SOB or palpitations - Current Medication List Current Medications: Active Medications Amiodarone HCl (Cordarone -) 200 mg PO BID [facility] Last Admin: 07/05/16 22:24 Dose: 200 mg Carvedilol (Coreg -) 6.25 mg PO BID [facility] Last Admin: 07/05/16 22:24 Dose: 6.25 mg Docusate Sodium (Colace -) 100 mg PO BID [facility] Last Admin: 07/05/16 22:24 Dose: 100 mg Heparin Sodium (Porcine) (Heparin -) 1,000 unit IVPUSH PRN PRN PRN Reason: Heparin Heparin Sodium (Porcine) (Heparin -) 5,000 unit IVPUSH PRN PRN PRN Reason: Heparin Heparin Sodium (Porcine) 25, (000 unit/ Sodium Chloride) 500 mls @ 20 mls/hr IV TITR RACHEL; 1,000 UNIT/HR PRN Reason: Protocol Last Admin: 07/05/16 22:25 Dose: 20 mls/hr Insulin Aspart (Novolog Vial Sliding Scale -) 1 vial SQ TIDAC [facility] PRN Reason: Protocol Insulin Detemir (Levemir Vial) 12 units SQ HS [facility] Last Admin: 07/05/16 22:27 Dose: 12 units Levothyroxine Sodium (Synthroid -) 75 mcg PO DAILY@0700 [facility] Last Admin: 07/06/16 06:58 Dose: 75 mcg Midodrine (Proamatine -) 5 mg PO BID-MID [facility] Last Admin: 07/06/16 09:15 Dose: Not Given Non-Formulary Medication (Sucroferric Oxyhydroxide [Velphoro]) 500 mg PO TID [facility] Oxycodone HCl (Roxicodone -) 5 mg PO Q6H PRN PRN Reason: PAIN Last Admin: 07/06/16 06:36 Dose: 5 mg Senna (Senna -) 1 tab PO HS [facility] Last Admin: 07/05/16 22:24 Dose: 1 tab Sevelamer Carbonate (Renvela -) 1,600 mg PO TIDCM [facility] Last Admin: 07/06/16 09:16 Dose: Not Given - Objective Vital Signs: Vital Signs Temperature 97.8 F 07/06/16 09:00 Pulse Rate 99 H 07/06/16 10:11 Respiratory Rate 18 07/06/16 10:11 Blood Pressure 96/52 07/06/16 10:11 O2 Sat by Pulse Oximetry (%) 95 07/06/16 10:00 Neck: Yes: Supple Cardiovascular: Yes: Pulse Irregular, S1, S2 Respiratory: Yes: Diminished Gastrointestinal: Yes: Normal Bowel Sounds, Ascites, Distention Edema: No Additional Findings/Remarks: Review of Systems Cardiovascular: As noted above Respiratory: denies: Cough or Sputum Production Gastrointestinal: denies: Nausea, Vomiting, Diarrhea, Constipation but reports Abdominal Distention Musculoskeletal: No Symptoms Reported Endocrine: History of DM Labs: CBC, BMP 07/06/16 07:00 07/06/16 07:00 INR, PTT INR 1.17 (0.82-1.09) H 07/06/16 07:00 Assessment/Plan - Problems (1) Atrial fibrillation with rapid ventricular response Code(s): I48.91 - UNSPECIFIED ATRIAL FIBRILLATION (2) Cirrhosis Code(s): K74.60 - UNSPECIFIED CIRRHOSIS OF LIVER Qualifiers: Hepatic cirrhosis type: unspecified hepatic cirrhosis Ascites presence : with ascites Qualified Code(s): K74.60 - Unspecified cirrhosis of liver (3) Coronary artery disease Code(s): I25.10 - ATHSCL HEART DISEASE OF [place] CORONARY ARTERY W/O ANG PCTRS Qualifiers: Coronary Disease-Associated Artery/Lesion type: [place] artery [place] vs. transplanted heart: [place] heart Associated angina: with stable angina Qualified Code(s): I25.119 - Atherosclerotic heart disease of [place] coronary artery with unspecified angina pectoris (4) Diabetes mellitus Code(s): E11.9 - TYPE 2 DIABETES MELLITUS WITHOUT COMPLICATIONS Qualifiers: Diabetes mellitus type: type 1 Diabetes mellitus complication status: with kidney complications Diabetes mellitus complication detail: with chronic kidney disease Chronic kidney disease stage: on chronic dialysis Qualified Code(s): E10.22 - Type 1 diabetes mellitus with diabetic chronic kidney disease; N18.1 - Chronic kidney disease, stage 1 (5) ESRD (end stage renal disease) Code(s): N18.6 - END STAGE RENAL DISEASE (6) HTN (hypertension) Code(s): I10 - ESSENTIAL (PRIMARY) HYPERTENSION Qualifiers: Hypertension type: essential hypertension Qualified Code(s): I10 - Essential (primary) hypertension (7) Hypothyroidism Code(s): E03.9 - HYPOTHYROIDISM, UNSPECIFIED Qualifiers: Hypothyroidism type: acquired Qualified Code(s): E03.9 - Hypothyroidism, unspecified (8) ICD (implantable cardioverter-defibrillator) discharge Code(s): Z45.02 - ENCNTR FOR ADJUST AND MGMT OF AUTOMATIC IMPLNTBL CARD DEFIB (9) Ventricular tachycardia Code(s): I47.2 - VENTRICULAR TACHYCARDIA (10) S/P coronary artery stent placement Code(s): Z95.5 - PRESENCE OF CORONARY ANGIOPLASTY IMPLANT AND GRAFT (11) Demand ischemia Code(s): I24.8 - OTHER FORMS OF ACUTE ISCHEMIC HEART DISEASE (12) Ischemic dilated cardiomyopathy Code(s): I25.5 - ISCHEMIC CARDIOMYOPATHY (13) Ascites Code(s): R18.8 - OTHER ASCITES Qualifiers: Ascites type: other type Qualified Code(s): R18.8 - Other ascites 1. Paroxysmal atrial fibrillation with improved rate-control, [id number] score of 4 2. Syncope referable to sustained VT/VF post appropriate ICD therapy 3. CAD post NH/PCI(stent)/CABG, angina pectoris with demand ischemic injury 4. Ischemic dilated cardiomyopathy with LV systolic dysfunction 5. Post ICD implant ([employer]) 6. HTN - currently hypotensive on Midodrine therapy 7. DM 8. Hypothyroidism 9. ESRD on HD 10. Advanced liver disease - possible hepatic cirrhosis with ascites 11. Anemia of CKD and Thrombocytopenia PLAN: 1. Continue Carvedilol 6.25 mg BID (uptitrate as tolerated) and ideally needs ACEI or ARB, but limited due to hypotension 2. Continue Amiodarone 200 mg BID but limiting factor would be liver disease. Follow closely 3. Heparin and Coumadin as per INR with caution unless further GI intervention is planned. If varices are present in conjunction with the above noted liver disease, A/C might be a problem. 4. Continue Midodrine 5. HD as per renal service with ultrafiltration as tolerated Further plans are to follow Carrington Woodruff MD
[2016-07-06] MEDS: DOCUSATE SODIUM 100 MG CAPSULE (FP) PO SCH ×2 (12:02→21:28)
[2016-07-06] MEDS: INSULIN SLIDING SCALE (NOVOLOG) 1 VIAL SQ SCH ×2 (12:02→17:23)
[2016-07-06] MEDS: AMIODARONE HCL 200 MG TABLET (FP) PO SCH ×2 (12:06→21:28)
--- NOTE | 2016-07-06 13:05 | PN ---
Progress Note (short form) - Note Progress Note: Admitted to [facility] for dyspnea, palpitations, was unable to finish HD, was in rapid Afib. Was transferred to [facility] ICU after his 3rd troponin peaked over 2. Rate is reasonably controlled now, on heparin drip. CBC, BMP 07/06/16 07:00 07/06/16 07:00 Vital Signs Period Temp Pulse Resp BP Sys/Lopez Pulse Ox Last 24 Hr 97.5 F-98.5 F 19-114 18-20 87-143/46-95 95-96 S1S2 iireg irreg on monitor lungs decreased BS 1/3 up ascites appears at baseline,not tense no periph edema Imp ESRD on HD rapid Afib IDDM HTN-often hypotensive durong HD Cirrhosis, ascites-due to R heart failure likely MARIAN in past-never treated due to multiple medical problems Plan iv heparin EGD tomorrow to evaluate for varices, ulcer tentatively start warfarin afterwards
--- NOTE | 2016-07-06 13:29 | PN ---
Progress Note (short form) - Note Progress Note: Full consult dictated
[2016-07-06] MEDS ORDERED: PT OWN MED DRAWER 7, Y5N ONE (16:22)
--- NOTE | 2016-07-06 18:09 | CONS ---
DATE OF CONSULTATION: 07/06/2016 GASTROINTESTINAL CONSULTATION REQUESTING PHYSICIAN: Cecilia Roldan M.D. HISTORY OF PRESENT ILLNESS: Patient is a 61-year-old male admitted through [facility] emergency room on July 02 for evaluation of right sided chest pressure, palpitations, and shortness of breath. This had occurred during dialysis. He is evaluated by cardiology on July 03, and they found the patient to be in atrial fibrillation with rapid ventricular response, and they mentioned in their note he had syncope referable to sustained ventricular tachycardia, ventricular fibrillation, post appropriate ICD therapy. They felt that he had a demand ischemic injury, and they recommended continued anticoagulation given the atrial fibrillation. This was documented in product mgr Dr. Wu's note yesterday, and he did say in his note yesterday that Coumadin as per INR with caution and the varices are present in conjunction with the above. Noted chronic liver disease, anticoagulation might be contraindicated. Therefore, gastroenterology consult was placed to evaluate for possible varices and to evaluate for his suspected chronic liver disease. I did evaluate the patient in 2011. He did not follow up in office from that time, but in 2011 he did undergo paracentesis when he was diagnosed with ascites, and he underwent paracentesis in 2011 as well that revealed a SAAG of 1.1 with total protein of 4 and albumin of 2. Cytology was unrevealing as were microbiology exams of the fluid. I suspected at that time that the patient's suspected chronic liver disease may have been multifactorial. His Hepatitis B and C serologies were negative from 2010, they are negative still, and I suspected the possibility of a GONG cirrhosis was in the differential given that he denied any alcohol abuse as well as also consideration of decompensated congestive heart failure leading to diastolic dysfunction and further dysfunction of his liver. I also felt that his kidney disease may have been contributory as well, as the peritoneal fluid analysis was not suggestive of purely portal hypertensive etiology. He currently denies any shortness of breath. He denies any chest pain. He did have an upper endoscopy on November 23, 2011, that revealed normal esophagus, some erosions in the body of the stomach, lymphangiectasias in the duodenal bulb, and there were no esophageal or gastric varices noted. Colonoscopy was deferred at that time given that he had recently diagnosed kidney disease and was in renal failure. PAST MEDICAL HISTORY: Significant for hypertension, hyperlipidemia, insulin dependent diabetes mellitus, chronic kidney disease, congestive heart failure, systolic dysfunction, pleural effusion. History of MARIAN in the lungs, which was not treated, suspected cirrhosis, hypothyroidism. PAST SURGICAL HISTORY: Includes AICD/permanent pacemaker placement, CABG, cholecystectomy in 2006. AV fistula/graft placement in the right arm with revision. The CABG was 3 vessels in 2009. SOCIAL HISTORY: Patient is [place] in origin. He has been living in the [place] for over 30 years. No history of tobacco, ETOH, or intravenous drug abuse or other illicit drugs. FAMILY HISTORY: There is no family history of colorectal cancer, no family history of liver disease. CURRENT MEDICATIONS: Include , midodrine, Cordarone, heparin, Coreg, Colace, senna, Levemir insulin, oxycodone, Renvela, and Synthroid. MEDICATIONS PRIOR TO ADMISSION: Include Synthroid, Lantus, carvedilol, Velphoro, sodium chloride tablets, Renvela, and midodrine. REVIEW OF SYSTEMS: He currently denies any chest pain or shortness of breath. Denies any abdominal pain, rectal bleeding. Denies any change in abdominal girth. He does describe chronic abdominal distention. He denies any lower extremity swelling. Denies any change in bowel habits, change in stool caliber, melena, or rectal bleeding. Denies any dysphagia or odynophagia. PHYSICAL EXAMINATION: General: The patient is found lying comfortably in his bed, he appeared to be in no apparent distress. Vital signs: He is afebrile. Pulse 99, blood pressure 95/52. HEENT: Sclerae are anicteric. Neck: Supple. Cardiovascular: Tachycardic rate with an irregular rhythm. No murmurs are appreciated. Lungs: Clear to auscultation bilaterally. Abdomen: Protuberant. He did have a reducible nontender fluid fill, umbilical hernia. He had normoactive bowel sounds. No hepatosplenomegaly was appreciated. No mass was palpated. No tenderness was elicited. Extremities: No lower extremity edema. Genitourinary: Digital rectal exam, no external lesions and no masses. He had brown stool in the rectal vault which was guaiac negative. LABORATORY EVALUATION: White blood count 5.4, hemoglobin 9.2, hematocrit 29.2, platelets 71,000. INR 1.17. Sodium 140, potassium 4.3, chloride 102, bicarbonate 23, BUN 61, creatinine 7.6. AST 9, ALT 14, alkaline phosphatase 68, total bilirubin of 0.4, albumin 3.4. Hepatitis serologies negative. Hepatitis A antibodies, hepatitis C surface antigen and antibody, and hepatitis C antibody were negative. RADIOLOGY REPORTS: He had no abdominal imaging performed. He had a chest x-ray on the that revealed right base effusion, some atelectasis. IMPRESSION: A 61-year-old male with multiple medical problems including recent atrial fibrillation with rapid ventricular response with ventricular fibrillation, ventricular tachycardia, now rate controlled ,evaluated by cardiology. He also has question of suspected cirrhosis given his ascites and thrombocytopenia. I do suspect given the previous fluid analysis that his ascites is multifactorial including component of cardiac etiology given his history of congestive heart failure and elevated total protein in his ascites. Also his renal failure likely contributory and there very well may be a component of chronic liver disease given his associated thrombocytopenia. The concern expressed by cardiology right now is if the patient has varices in the setting of the need for chronic anticoagulation. I did discus this with the patient, and explained that to exclude varices which could potentially significantly increase bleeding risk in the setting of anticoagulation, upper endoscopy could be undertaken for further evaluation. We discussed potential risks of the procedure like but not limited to bleeding, perforation requiring surgery to repair, infection, sedation, medication effects all of which could be potentially life threatening. He has agreed to the procedure, and he has been cleared by Dr. Wu and , product mgr evaluating him. I did discuss the plan with his primary physician, Dr. Roldan, as well, and other recommendations will be made pending the above. The other concern is that he will need paracentesis at some point and being on chronic anticoagulation may make this a riskier endeavor. I did discuss this with cardiology as well. I thank you for this consultative opportunity. ODALIS QUARLES DO [id number]
--- NOTE | 2016-07-06 18:44 | PN ---
Progress Note (short form) - Note Progress Note: Patient reports body ache after hemodialysis today. Now he is feeling better. He appears comfortable in bed Vitals: BP Vital Signs - 24 hr 07/05/16 07/06/16 07/06/16 22:00 02:00 05:46 Temperature 97.5 F L 98 F Pulse Rate 89 110 H Respiratory 20 18 20 Rate Blood Pressure 101/53 100/46 O2 Sat by Pulse 96 Oximetry (%) 07/06/16 07/06/16 07/06/16 06:55 07:00 07:30 Temperature 98.5 F Pulse Rate 90 96 H 96 H Respiratory 18 18 18 Rate Blood Pressure 87/60 88/56 88/60 O2 Sat by Pulse Oximetry (%) 07/06/16 07/06/16 07/06/16 08:00 08:30 09:00 Temperature 97.8 F Pulse Rate 114 H 98 H 98 H Respiratory 18 18 18 Rate Blood Pressure 143/95 103/49 103/49 O2 Sat by Pulse Oximetry (%) 07/06/16 07/06/16 07/06/16 09:30 10:00 10:11 Temperature Pulse Rate 111 H 98 H 99 H Respiratory 18 18 18 Rate Blood Pressure 92/52 92/55 96/52 O2 Sat by Pulse 95 Oximetry (%) 07/06/16 15:00 Temperature 97.9 F Pulse Rate 109 H Respiratory 18 Rate Blood Pressure 117/54 O2 Sat by Pulse Oximetry (%) Lungs; dullness at the bases more on the right. Heart: S1 S2 irregular, no gallop Abd: Obese, soft, positive ascites which is not tense Ext: No edema Access: Positive bruit right forearm AV fistula Labs: Laboratory Results - last 24 hr 07/05/16 07/06/16 07/06/16 22:21 05:39 07:00 WBC 5.4 RBC 3.11 L Hgb 9.2 L Hct 29.2 L MCV 93.9 MCHC 31.6 L RDW 16.6 H Plt Count 71 L MPV 9.3 INR PTT (Actin FS) Sodium Potassium Chloride Carbon Dioxide Anion Gap BUN Creatinine Creat Clearance w eGFR POC Glucometer 159 215 Random Glucose Calcium Phosphorus Magnesium Total Bilirubin AST ALT Alkaline Phosphatase Total Protein Albumin 07/06/16 07/06/16 07/06/16 07:00 07:00 11:52 WBC RBC Hgb Hct MCV MCHC RDW Plt Count MPV INR 1.17 H PTT (Actin FS) 35.7 H Sodium 140 Potassium 4.3 Chloride 102 Carbon Dioxide 23 Anion Gap 15 BUN 61 H Creatinine 7.6 H* Creat Clearance w eGFR 7.29 POC Glucometer 205 Random Glucose 201 H Calcium 8.2 L Phosphorus 6.1 H D Magnesium 2.4 D Total Bilirubin 0.4 D AST 9 L ALT 14 Alkaline Phosphatase 68 Total Protein 7.3 Albumin 3.4 D 07/06/16 15:59 WBC RBC Hgb Hct MCV MCHC RDW Plt Count MPV INR PTT (Actin FS) Sodium Potassium Chloride Carbon Dioxide Anion Gap BUN Creatinine Creat Clearance w eGFR POC Glucometer 172 Random Glucose Calcium Phosphorus Magnesium Total Bilirubin AST ALT Alkaline Phosphatase Total Protein Albumin a/p: 61 year old man with ischemic cardiomyopathy, new onset atrial fibrillation and ESRD admitted with probable demand ischemia and rising troponin values. Patient had hemodialysis earlier today as per the dialysis orders. He is tentatively scheduled for upper endoscopy in a.m. Problem List - Problems (1) Atrial fibrillation with rapid ventricular response Code(s): I48.91 - UNSPECIFIED ATRIAL FIBRILLATION (2) Demand ischemia Code(s): I24.8 - OTHER FORMS OF ACUTE ISCHEMIC HEART DISEASE (3) Diabetes mellitus Code(s): E11.9 - TYPE 2 DIABETES MELLITUS WITHOUT COMPLICATIONS Qualifiers: Diabetes mellitus type: type 1 Diabetes mellitus complication status: with kidney complications Diabetes mellitus complication detail: with chronic kidney disease Chronic kidney disease stage: on chronic dialysis Qualified Code(s): E10.22 - Type 1 diabetes mellitus with diabetic chronic kidney disease; N18.1 - Chronic kidney disease, stage 1 (4) ESRD (end stage renal disease) Assessment/Plan: Hemodialysis today for 3 hours as per the dialysis orders. Code(s): N18.6 - END STAGE RENAL DISEASE
[2016-07-06] MEDS: SENNOSIDES 8.6MG TABLET (FP) PO SCH (21:28)
[2016-07-06] MEDS: INSULIN DETEMIR 100 UNITS/ML MDV SQ SCH (21:29)
[2016-07-07] MEDS: oxyCODONE HCL 5 MG TABLET PO PRN ×2 (01:12→18:00)
[2016-07-07] MEDS: LEVOTHYROXINE NA 75 MCG TABLET (FP) PO SCH (06:29)
[2016-07-07] MEDS: INSULIN SLIDING SCALE (NOVOLOG) 1 VIAL SQ SCH ×3 (07:00→18:02)
[2016-07-07 07:09] LABS: BASOPHIL 1.7 % (0-2.0); MCHC 31.8 g/dl (32.0-35.9); MEAN CELL VOLUME 94.6 fl (80-96); MEAN PLT VOLUME 10.4 fl (7.5-11.1); NEUTROPHILS 72.2 % (42.8-82.8); PLATELET COUNT 93 K/MM3 (134-434); RDW 16.5 % (11.9-15.9); WHITE BLOOD COUNT 5.7 K/mm3 (4.0-10.0)
[2016-07-07 07:27] LABS: INR 1.17 (0.82-1.09); PROTHROMBIN TIME (PATIENT) 12.9 SEC (9.98-11.88)
[2016-07-07 07:44] LABS: ALBUMIN 3.7 g/dl (3.4-5.0); BILIRUBIN,TOTAL 0.4 mg/dL (0.2-1.0); CALCIUM 8.3 mg/dL (8.5-10.1); CREATININE 6.4 mg/dL (0.7-1.3); TOT PROT 7.4 g/dl (6.4-8.2)
--- NOTE | 2016-07-07 08:28 | PN ---
Progress Note (short form) - Note Progress Note: NO new complaints, feels well. CBC, BMP 07/07/16 05:35 07/07/16 05:35 Vital Signs Period Temp Pulse Resp BP Sys/Lopez Pulse Ox Last 24 Hr 97.8 F-98.1 F 70-113 18-20 91-134/49-68 95-95 S1S2 grossly regular lungs decreased BS 1/3 up on left ascites appears at baseline,not tense no periph edema Imp Ischemic cardiomyopathy AICD ESRD on HD rapid Afib IDDM HTN Cirrhosis, ascites-due to R heart failure likely MARIAN in past-never treated due to multiple medical problems Plan EGD today iv heparin tentatively start warfarin afterwards dc planning once INR is therapeutic
[2016-07-07] MEDS: SEVELAMER CARBONATE 800 MG TAB (FP) PO SCH ×3 (09:12→17:45)
[2016-07-07] MEDS: DOCUSATE SODIUM 100 MG CAPSULE (FP) PO SCH ×2 (09:12→21:50)
[2016-07-07] MEDS ORDERED: PT OWN MED DRAWER 7, Y5N ONE ×3 (09:18→21:53)
[2016-07-07] MEDS: MIDODRINE HCL 5 MG TABLET PO SCH ×2 (09:25→17:46)
[2016-07-07] MEDS: AMIODARONE HCL 200 MG TABLET (FP) PO SCH ×2 (09:25→21:51)
[2016-07-07] MEDS: CARVEDILOL 6.25 MG TABLET (FP) PO SCH ×2 (10:00→21:50)
[2016-07-07] MEDS ORDERED: PROPOFOL 20 ML ONE ×2 (11:02)
[2016-07-07] MEDS ORDERED: LIDOCAINE HCL/PF 1% SDV 5ML VIAL ONE (11:02)
[2016-07-07] MEDS ORDERED: ETOMIDATE 20 MG/10 ML AMPUL IVPUSH ONE (11:21)
--- NOTE | 2016-07-07 12:04 | PN ---
Progress Note (short form) - Note Progress Note: GI Procedure NOte: Please see EGD report. No ulcers or varices seen. Bile reflux gastritis noted. No major contraindication for anticoagulation found.
--- NOTE | 2016-07-07 13:06 | PN ---
Progress Note, Physician History of Present Illness: Denies dyspnea, abd distension improved, rate-controlled afib. - Current Medication List Current Medications: Active Medications Amiodarone HCl (Cordarone -) 200 mg PO BID [facility] Last Admin: 07/07/16 09:25 Dose: 200 mg Carvedilol (Coreg -) 6.25 mg PO BID [facility] Last Admin: 07/06/16 21:29 Dose: 6.25 mg Docusate Sodium (Colace -) 100 mg PO BID [facility] Last Admin: 07/07/16 09:12 Dose: Not Given Heparin Sodium (Porcine) (Heparin -) 1,000 unit IVPUSH PRN PRN PRN Reason: Heparin Heparin Sodium (Porcine) (Heparin -) 5,000 unit IVPUSH PRN PRN PRN Reason: Heparin Heparin Sodium (Porcine) 25, (000 unit/ Sodium Chloride) 500 mls @ 20 mls/hr IV TITR RACHEL; 1,000 UNIT/HR PRN Reason: Protocol Last Admin: 07/05/16 22:25 Dose: 20 mls/hr Insulin Aspart (Novolog Vial Sliding Scale -) 1 vial SQ TIDAC [facility] PRN Reason: Protocol Last Admin: 07/07/16 11:48 Dose: Not Given Insulin Detemir (Levemir Vial) 12 units SQ HS [facility] Last Admin: 07/06/16 21:29 Dose: 12 units Levothyroxine Sodium (Synthroid -) 75 mcg PO DAILY@0700 [facility] Last Admin: 07/07/16 06:29 Dose: Not Given Midodrine (Proamatine -) 5 mg PO BID-MID [facility] Last Admin: 07/07/16 09:25 Dose: 5 mg Non-Formulary Medication (Sucroferric Oxyhydroxide [Velphoro]) 500 mg PO TID [facility] Oxycodone HCl (Roxicodone -) 10 mg PO TID PRN PRN Reason: PAIN Last Admin: 07/07/16 01:12 Dose: 10 mg Senna (Senna -) 1 tab PO HS [facility] Last Admin: 07/06/16 21:28 Dose: 1 tab Sevelamer Carbonate (Renvela -) 1,600 mg PO TIDCM [facility] Last Admin: 07/07/16 09:12 Dose: Not Given Sucralfate (Carafate -) 2 gm PO BID [facility]AC[facility] - Objective Vital Signs: Vital Signs Temperature 97.7 F 07/07/16 12:19 Pulse Rate 82 07/07/16 12:19 Respiratory Rate 17 07/07/16 12:19 Blood Pressure 102/54 07/07/16 12:19 O2 Sat by Pulse Oximetry (%) 100 07/07/16 12:19 Constitutional: Yes: No Distress, Calm Neck: Yes: Supple Cardiovascular: Yes: Pulse Irregular Respiratory: Yes: Regular, Diminished Gastrointestinal: Yes: Normal Bowel Sounds, Soft Edema: No Labs: CBC, BMP 07/07/16 05:35 07/07/16 05:35 INR, PTT INR 1.17 (0.82-1.09) H 07/07/16 05:35 Problem List - Problems (1) Atrial fibrillation with rapid ventricular response Code(s): I48.91 - UNSPECIFIED ATRIAL FIBRILLATION (2) Cirrhosis Code(s): K74.60 - UNSPECIFIED CIRRHOSIS OF LIVER Qualifiers: Hepatic cirrhosis type: unspecified hepatic cirrhosis Ascites presence : with ascites Qualified Code(s): K74.60 - Unspecified cirrhosis of liver (3) Coronary artery disease Code(s): I25.10 - ATHSCL HEART DISEASE OF [place] CORONARY ARTERY W/O ANG PCTRS Qualifiers: Coronary Disease-Associated Artery/Lesion type: [place] artery [place] vs. transplanted heart: [place] heart Associated angina: with stable angina Qualified Code(s): I25.119 - Atherosclerotic heart disease of [place] coronary artery with unspecified angina pectoris (4) Diabetes mellitus Code(s): E11.9 - TYPE 2 DIABETES MELLITUS WITHOUT COMPLICATIONS Qualifiers: Diabetes mellitus type: type 1 Diabetes mellitus complication status: with kidney complications Diabetes mellitus complication detail: with chronic kidney disease Chronic kidney disease stage: on chronic dialysis Qualified Code(s): E10.22 - Type 1 diabetes mellitus with diabetic chronic kidney disease; N18.1 - Chronic kidney disease, stage 1 (5) ESRD (end stage renal disease) Code(s): N18.6 - END STAGE RENAL DISEASE (6) HTN (hypertension) Code(s): I10 - ESSENTIAL (PRIMARY) HYPERTENSION Qualifiers: Hypertension type: essential hypertension Qualified Code(s): I10 - Essential (primary) hypertension (7) Hypothyroidism Code(s): E03.9 - HYPOTHYROIDISM, UNSPECIFIED Qualifiers: Hypothyroidism type: acquired Qualified Code(s): E03.9 - Hypothyroidism, unspecified (8) ICD (implantable cardioverter-defibrillator) discharge Code(s): Z45.02 - ENCNTR FOR ADJUST AND MGMT OF AUTOMATIC IMPLNTBL CARD DEFIB (9) Ventricular tachycardia Code(s): I47.2 - VENTRICULAR TACHYCARDIA (10) S/P coronary artery stent placement Code(s): Z95.5 - PRESENCE OF CORONARY ANGIOPLASTY IMPLANT AND GRAFT (11) Demand ischemia Code(s): I24.8 - OTHER FORMS OF ACUTE ISCHEMIC HEART DISEASE (12) Ischemic dilated cardiomyopathy Code(s): I25.5 - ISCHEMIC CARDIOMYOPATHY (13) Ascites Code(s): R18.8 - OTHER ASCITES Qualifiers: Ascites type: other type Qualified Code(s): R18.8 - Other ascites Assessment/Plan Echocardiography dated 04/28/16 revealed LV systolic function moderate/severely reduced, akinesis of basal and mid kandy-septum, apical anterior and apical inferior mustafa; left atrium moderately dilated; mild to moderate mitral annular calcification, mild mitral regurgitaion, moderate tricuspid regurgitation, RV systolic pressure elevated; mild aortic sclerosis. Abdominal U/S dated 04/2016 revealed ascites, heterogeneous liver and splenomegaly consistent with advanced hepato-cellular disease 1. Paroxysmal atrial fibrillation with improved rate-control, [id number] score of 4 with subtherapeutic INR 2. Syncope referable to sustained VT/VF post appropriate ICD therapy 3. CAD post [place]/PCI(stent)/CABG, angina pectoris with demand ischemic injury 4. Ischemic dilated cardiomyopathy 5. Post Medtronic ICD implant 6. HTN history currently hypotensive on Midodrine therapy 7. DM 8. Hypothyroidism 9. ESRD on HD 10. Advanced liver disease, possible hepatic cirrhosis with ascites ruled out esophageal varices 11. Anemia of CKD, Thrombocytopenia PLAN: 1. Ideally would uptitrate Carvedilol currently at 6.25 bid and initiate ACEI or ARBS, but limited by hypotension 2. Continue Amiodarone 200 bid but limiting factor would be CLD (chronic liver disease) severity 3. Heparin -> Coumadin as per INR with caution, varices were not seen 4. Continue Midodrine 5. HD as per renal service with ultrafiltration as tolerated
[2016-07-07] MEDS: WARFARIN NA 5 MG TABLET (UD) PO SCH (17:45)
[2016-07-07] MEDS: SENNOSIDES 8.6MG TABLET (FP) PO SCH (21:50)
[2016-07-07] MEDS: INSULIN DETEMIR 100 UNITS/ML MDV SQ SCH (22:03)
--- NOTE | 2016-07-07 22:51 | PN ---
Progress Note (short form) - Note Progress Note: Patient is feeling better today. Had upper endoscopy notable for no varices etc. Patient denies any new complaint. Vitals: Vital Signs - 24 hr 07/06/16 07/07/16 07/07/16 23:39 03:39 05:35 Temperature 98.1 F 97.9 F Pulse Rate 86 76 Respiratory 19 18 Rate Blood Pressure 118/57 95/54 O2 Sat by Pulse 95 Oximetry (%) 07/07/16 07/07/16 07/07/16 09:00 10:00 11:43 Temperature 97.8 F 97.7 F Pulse Rate 106 H 94 H Respiratory 18 17 16 Rate Blood Pressure 102/62 79/60 O2 Sat by Pulse 100 100 Oximetry (%) 07/07/16 07/07/16 07/07/16 11:58 12:13 12:19 Temperature 97.7 F Pulse Rate 88 93 H 82 Respiratory 17 17 17 Rate Blood Pressure 103/69 103/66 102/54 O2 Sat by Pulse 100 99 100 Oximetry (%) 07/07/16 07/07/16 15:15 17:00 Temperature 97.4 F L 97.5 F L Pulse Rate 102 H 103 H Respiratory 20 20 Rate Blood Pressure 103/58 104/54 O2 Sat by Pulse Oximetry (%) Lungs: clear to auscultation Heart: S1S2 Irregular Abd: full, soft, obese , non-tender EXT NO edema Labs; Laboratory Results - last 24 hr 07/07/16 07/07/16 07/07/16 05:35 05:35 05:35 WBC 5.7 RBC 3.22 L Hgb 9.7 L Hct 30.5 L MCV 94.6 MCHC 31.8 L RDW 16.5 H Plt Count 93 L D MPV 10.4 D Neutrophils % 72.2 Lymphocytes % 9.9 D Monocytes % 12.2 H Eosinophils % 4.0 Basophils % 1.7 INR 1.17 H PTT (Actin FS) 49.4 H D Sodium Potassium Chloride Carbon Dioxide Anion Gap BUN Creatinine Creat Clearance w eGFR POC Glucometer Random Glucose Calcium Total Bilirubin AST ALT Alkaline Phosphatase Total Protein Albumin 07/07/16 07/07/16 07/07/16 05:35 16:02 21:58 WBC RBC Hgb Hct MCV MCHC RDW Plt Count MPV Neutrophils % Lymphocytes % Monocytes % Eosinophils % Basophils % INR PTT (Actin FS) Sodium 140 Potassium 4.0 Chloride 102 Carbon Dioxide 26 Anion Gap 12 BUN 49 H Creatinine 6.4 H Creat Clearance w eGFR 8.89 POC Glucometer 162 143 Random Glucose 132 H D Calcium 8.3 L Total Bilirubin 0.4 AST 17 D ALT 18 D Alkaline Phosphatase 73 Total Protein 7.4 Albumin 3.7 A/P: 61 year old man with esrd admitted with chest pain and new onset a.fib Patient is scheduled for hemodialysis in a.m. Ultra-filtration goal of 3 kg anticipated. Problem List - Problems (1) Atrial fibrillation with rapid ventricular response Code(s): I48.91 - UNSPECIFIED ATRIAL FIBRILLATION (2) Demand ischemia Code(s): I24.8 - OTHER FORMS OF ACUTE ISCHEMIC HEART DISEASE (3) Diabetes mellitus Code(s): E11.9 - TYPE 2 DIABETES MELLITUS WITHOUT COMPLICATIONS Qualifiers: Diabetes mellitus type: type 1 Diabetes mellitus complication status: with kidney complications Diabetes mellitus complication detail: with chronic kidney disease Chronic kidney disease stage: on chronic dialysis Qualified Code(s): E10.22 - Type 1 diabetes mellitus with diabetic chronic kidney disease; N18.1 - Chronic kidney disease, stage 1 (4) ESRD (end stage renal disease) Code(s): N18.6 - END STAGE RENAL DISEASE
[2016-07-07] MEDS: SUCRALFATE 1 GM TABLET (FP) PO SCH (22:55)
[2016-07-07] MEDS: LACTULOSE 20 GM/30 ML UDC (FOR ORAL USE ONLY) PO SCH (22:55)
[2016-07-08] MEDS: oxyCODONE HCL 5 MG TABLET PO PRN ×3 (03:10→19:39)
[2016-07-08] MEDS: LEVOTHYROXINE NA 75 MCG TABLET (FP) PO SCH (06:05)
[2016-07-08] MEDS: INSULIN SLIDING SCALE (NOVOLOG) 1 VIAL SQ SCH ×3 (06:05→17:18)
[2016-07-08] MEDS ORDERED: PT OWN MED DRAWER 7, Y5N ONE (07:01)
[2016-07-08] MEDS: MIDODRINE HCL 5 MG TABLET PO SCH ×3 (07:02→17:13)
[2016-07-08] MEDS: SEVELAMER CARBONATE 800 MG TAB (FP) PO SCH ×3 (08:00→17:13)
[2016-07-08] MEDS ORDERED: EPOETIN ALFA 10,000 UNIT/1 ML VIAL IVPUSH ONE (08:00)
--- NOTE | 2016-07-08 08:44 | PN ---
Progress Note (short form) - Note Progress Note: NO new complaints, feels well. EGD reviewed, no active bleeding, no ulcers, no varices CBC, BMP 07/07/16 05:35 07/07/16 05:35 S1S2 irreg.irreg lungs decreased BS 1/3 up on left ascites appears at baseline,not tense no periph edema getting HD at bedside Imp Ischemic cardiomyopathy AICD ESRD on HD rapid Afib IDDM HTN Cirrhosis, ascites-due to R heart failure likely MARIAN in past-never treated due to multiple medical problems Plan iv heparin bridge to warfarin dc planning once INR is therapeutic can transfer to floor if ok with cardiology
[2016-07-08 08:56] LABS: MCH 29.8 pg (25.7-33.7); MCHC 31.9 g/dl (32.0-35.9); MEAN CELL VOLUME 93.5 fl (80-96); MEAN PLT VOLUME 9.7 fl (7.5-11.1); PLATELET COUNT 107 K/MM3 (134-434); RDW 16.7 % (11.9-15.9); WHITE BLOOD COUNT 7.8 K/mm3 (4.0-10.0)
[2016-07-08 09:06] LABS: INR 1.2 (0.82-1.09); PROTHROMBIN TIME (PATIENT) 13.3 SEC (9.98-11.88)
[2016-07-08 09:09] LABS: ACTIVATED PTT 40.4 SECONDS (26.9-34.4)
[2016-07-08] MEDS: DOCUSATE SODIUM 100 MG CAPSULE (FP) PO SCH ×2 (11:26→21:59)
[2016-07-08] MEDS: AMIODARONE HCL 200 MG TABLET (FP) PO SCH ×2 (11:26→21:59)
[2016-07-08] MEDS: CARVEDILOL 6.25 MG TABLET (FP) PO SCH ×2 (11:27→21:59)
[2016-07-08] MEDS: SUCRALFATE 1 GM TABLET (FP) PO SCH ×2 (11:31→21:59)
[2016-07-08] MEDS: HEPARIN - 25,000 UNIT in SODIUM CHLORIDE 495 ML IV SCH ×2 (11:32→17:19)
[2016-07-08] MEDS: HEPARIN NA (PORCINE) 5,000 UNITS/ML 1ML VIAL IVPUSH PRN ×2 (11:33→19:42)
--- NOTE | 2016-07-08 15:46 | PN ---
Progress Note, Physician Chief Complaint: Events noted Had HD this morning Generalized weakness GI input noted History of Present Illness: Patient was seen and examined. Awake and alert. Chart was reviewed Denies chest pain, SOB or palpitations Anticoagulation restarted - Current Medication List Current Medications: Active Medications Amiodarone HCl (Cordarone -) 200 mg PO BID [facility] Last Admin: 07/08/16 11:26 Dose: 200 mg Carvedilol (Coreg -) 6.25 mg PO BID [facility] Last Admin: 07/08/16 11:27 Dose: 6.25 mg Docusate Sodium (Colace -) 100 mg PO BID [facility] Last Admin: 07/08/16 11:26 Dose: 100 mg Heparin Sodium (Porcine) (Heparin -) 1,000 unit IVPUSH PRN PRN PRN Reason: Heparin Last Admin: 07/08/16 11:33 Dose: 1,000 unit Heparin Sodium (Porcine) (Heparin -) 5,000 unit IVPUSH PRN PRN PRN Reason: Heparin Heparin Sodium (Porcine) 25, (000 unit/ Sodium Chloride) 500 mls @ 20 mls/hr IV TITR RACHEL; 1,000 UNIT/HR PRN Reason: Protocol Last Admin: 07/08/16 11:32 Dose: 25 mls/hr Insulin Aspart (Novolog Vial Sliding Scale -) 1 vial SQ TIDAC [facility] PRN Reason: Protocol Last Admin: 07/08/16 11:38 Dose: Not Given Insulin Detemir (Levemir Vial) 12 units SQ HS [facility] Last Admin: 07/07/16 22:03 Dose: 12 units Lactulose (Cephulac (Oral Use)) 20 gm PO HS [facility] Last Admin: 07/07/16 22:55 Dose: 20 gm Levothyroxine Sodium (Synthroid -) 75 mcg PO DAILY@0700 [facility] Last Admin: 07/08/16 06:05 Dose: 75 mcg Midodrine (Proamatine -) 5 mg PO BID-MID [facility] Last Admin: 07/08/16 11:27 Dose: Not Given Non-Formulary Medication (Sucroferric Oxyhydroxide [Velphoro]) 500 mg PO TID [facility] Oxycodone HCl (Roxicodone -) 10 mg PO Q8H PRN PRN Reason: PAIN Stop: 07/09/16 16:36 Last Admin: 07/08/16 11:28 Dose: 10 mg Senna (Senna -) 1 tab PO HS [facility] Last Admin: 07/07/16 21:50 Dose: 1 tab Sevelamer Carbonate (Renvela -) 1,600 mg PO TIDCM [facility] Last Admin: 07/08/16 11:25 Dose: 1,600 mg Sucralfate (Carafate -) 2 gm PO BID [facility] Last Admin: 07/08/16 11:31 Dose: 2 gm Warfarin Sodium (Coumadin -) 5 mg PO DAILY@1800 [facility] Last Admin: 07/07/16 17:45 Dose: 5 mg - Objective Vital Signs: Vital Signs Temperature 98.0 F 07/08/16 14:00 Pulse Rate 97 H 07/08/16 14:00 Respiratory Rate 18 07/08/16 14:00 Blood Pressure 118/63 07/08/16 14:00 O2 Sat by Pulse Oximetry (%) 93 L 07/08/16 10:45 Cardiovascular: Yes: Pulse Irregular, S1, S2 Respiratory: Yes: Diminished Gastrointestinal: Yes: Ascites, Distention Edema: No Additional Findings/Remarks: Review of Systems Cardiovascular: As noted above Respiratory: denies: Cough or Sputum Production Gastrointestinal: denies: Nausea, Vomiting, Diarrhea, Constipation but reports Abdominal Distention Musculoskeletal: No Symptoms Reported Labs: CBC, BMP 07/08/16 08:40 07/07/16 05:35 INR, PTT INR 1.20 (0.82-1.09) H 07/08/16 07:00 Assessment/Plan - Problems (1) Atrial fibrillation with rapid ventricular response Code(s): I48.91 - UNSPECIFIED ATRIAL FIBRILLATION (2) Cirrhosis Code(s): K74.60 - UNSPECIFIED CIRRHOSIS OF LIVER Qualifiers: Hepatic cirrhosis type: unspecified hepatic cirrhosis Ascites presence : with ascites Qualified Code(s): K74.60 - Unspecified cirrhosis of liver (3) Coronary artery disease Code(s): I25.10 - ATHSCL HEART DISEASE OF [place] CORONARY ARTERY W/O ANG PCTRS Qualifiers: Coronary Disease-Associated Artery/Lesion type: [place] artery [place] vs. transplanted heart: [place] heart Associated angina: with stable angina Qualified Code(s): I25.119 - Atherosclerotic heart disease of [place] coronary artery with unspecified angina pectoris (4) Diabetes mellitus Code(s): E11.9 - TYPE 2 DIABETES MELLITUS WITHOUT COMPLICATIONS Qualifiers: Diabetes mellitus type: type 1 Diabetes mellitus complication status: with kidney complications Diabetes mellitus complication detail: with chronic kidney disease Chronic kidney disease stage: on chronic dialysis Qualified Code(s): E10.22 - Type 1 diabetes mellitus with diabetic chronic kidney disease; N18.1 - Chronic kidney disease, stage 1 (5) ESRD (end stage renal disease) Code(s): N18.6 - END STAGE RENAL DISEASE (6) HTN (hypertension) Code(s): I10 - ESSENTIAL (PRIMARY) HYPERTENSION Qualifiers: Hypertension type: essential hypertension Qualified Code(s): I10 - Essential (primary) hypertension (7) Hypothyroidism Code(s): E03.9 - HYPOTHYROIDISM, UNSPECIFIED Qualifiers: Hypothyroidism type: acquired Qualified Code(s): E03.9 - Hypothyroidism, unspecified (8) ICD (implantable cardioverter-defibrillator) discharge Code(s): Z45.02 - ENCNTR FOR ADJUST AND MGMT OF AUTOMATIC IMPLNTBL CARD DEFIB (9) Ventricular tachycardia Code(s): I47.2 - VENTRICULAR TACHYCARDIA (10) S/P coronary artery stent placement Code(s): Z95.5 - PRESENCE OF CORONARY ANGIOPLASTY IMPLANT AND GRAFT (11) Demand ischemia Code(s): I24.8 - OTHER FORMS OF ACUTE ISCHEMIC HEART DISEASE (12) Ischemic dilated cardiomyopathy Code(s): I25.5 - ISCHEMIC CARDIOMYOPATHY (13) Ascites Code(s): R18.8 - OTHER ASCITES Qualifiers: Ascites type: other type Qualified Code(s): R18.8 - Other ascites 1. Paroxysmal atrial fibrillation with improved rate-control, [id number] score of 4 2. Syncope referable to sustained VT/VF post appropriate ICD therapy 3. CAD post [place]/PCI(stent)/CABG, angina pectoris with demand ischemic injury 4. Ischemic dilated cardiomyopathy with LV systolic dysfunction 5. Post ICD implant (Medtronic) 6. HTN - currently hypotensive on Midodrine therapy 7. DM 8. Hypothyroidism 9. ESRD on HD 10. Advanced liver disease - possible hepatic cirrhosis with ascites - no varices 11. Anemia of CKD and Thrombocytopenia PLAN: 1. Continue Carvedilol 6.25 mg BID (uptitrate as tolerated) and ACEI or ARB if feasible 2. Continue Amiodarone 200 mg BID but limiting factor would be liver disease. Follow closely 3. Heparin and Coumadin as per INR with caution 4. Continue Midodrine 5. HD as per renal service with ultrafiltration as tolerated Further plans are to follow. May transfer to floor care cardiac standpoint Carrington Woodruff MD
[2016-07-08] MEDS: WARFARIN NA 5 MG TABLET (UD) PO SCH (17:13)
[2016-07-08] MEDS: LACTULOSE 20 GM/30 ML UDC (FOR ORAL USE ONLY) PO SCH (21:58)
[2016-07-08] MEDS: SENNOSIDES 8.6MG TABLET (FP) PO SCH (21:59)
[2016-07-08] MEDS: INSULIN DETEMIR 100 UNITS/ML MDV SQ SCH (21:59)
[2016-07-09 02:39] LABS: MCH 29.2 pg (25.7-33.7); MCHC 30.6 g/dl (32.0-35.9); MEAN CELL VOLUME 95.3 fl (80-96); MEAN PLT VOLUME 9.8 fl (7.5-11.1); PLATELET COUNT 98 K/MM3 (134-434); RDW 17.4 % (11.9-15.9); WHITE BLOOD COUNT 6.6 K/mm3 (4.0-10.0)
[2016-07-09] MEDS: HEPARIN - 25,000 UNIT in SODIUM CHLORIDE 495 ML IV SCH ×2 (03:44→14:24)
[2016-07-09] MEDS: LEVOTHYROXINE NA 75 MCG TABLET (FP) PO SCH (06:29)
[2016-07-09] MEDS: INSULIN SLIDING SCALE (NOVOLOG) 1 VIAL SQ SCH ×3 (06:30→17:17)
--- NOTE | 2016-07-09 07:26 | PN ---
Progress Note (short form) - Note Progress Note: NO new complaints, feels well. Vital Signs Period Temp Pulse Resp BP Sys/Lopez Pulse Ox Last 24 Hr 97.5 F-98.2 F 65-102 18-19 85-118/49-63 93-97 S1S2 irreg.irreg lungs cta ant ascites appears at baseline,not tense no periph edema Imp Ischemic cardiomyopathy AICD ESRD on HD rapid Afib IDDM HTN Cirrhosis, ascites-due to R heart failure likely MARIAN in past-never treated due to multiple medical problems Plan iv heparin bridge to warfarin dc planning once INR is therapeutic can transfer to floor
[2016-07-09] MEDS: SEVELAMER CARBONATE 800 MG TAB (FP) PO SCH ×3 (08:00→17:16)
[2016-07-09] MEDS: SUCRALFATE 1 GM TABLET (FP) PO SCH ×2 (09:38→23:37)
[2016-07-09] MEDS: DOCUSATE SODIUM 100 MG CAPSULE (FP) PO SCH ×2 (09:38→23:37)
[2016-07-09] MEDS: CARVEDILOL 6.25 MG TABLET (FP) PO SCH ×2 (09:38→23:37)
[2016-07-09] MEDS: MIDODRINE HCL 5 MG TABLET PO SCH ×2 (09:38→17:17)
[2016-07-09] MEDS: oxyCODONE HCL 5 MG TABLET PO PRN (09:39)
[2016-07-09 09:40] LABS: INR 1.33 (0.82-1.09); PROTHROMBIN TIME (PATIENT) 14.7 SEC (9.98-11.88)
[2016-07-09] MEDS: AMIODARONE HCL 200 MG TABLET (FP) PO SCH ×2 (09:40→23:37)
--- NOTE | 2016-07-09 13:44 | PN ---
Progress Note (short form) - Note Progress Note: Patient appears comfortable in bed and denies any further episode of chest pain. However he reports increasing abdominal distension and discomfort. He reports no bowel movement in two days. Vitals: Vital Signs - 24 hr 07/08/16 07/08/16 07/08/16 14:00 18:00 22:00 Temperature 98.0 F 97.8 F 97.8 F Pulse Rate 97 H 98 H 96 H Respiratory 18 18 18 Rate Blood Pressure 118/63 85/50 97/54 O2 Sat by Pulse 96 Oximetry (%) 07/09/16 07/09/16 07/09/16 02:00 06:00 10:00 Temperature 97.5 F L 98.1 F 98 F Pulse Rate 102 H 93 H 90 Respiratory 19 19 18 Rate Blood Pressure 97/60 101/51 90/50 O2 Sat by Pulse 96 98 Oximetry (%) Lungs: coarse breath sound in the lung viera distally. Heart: S1 S2 irregular, soft systolic murmur, no gallop Abd: Distended but soft, non tnder to light palpation, BS present Ext: Trace bipedal edema Neuro: Awake and alert Labs: Laboratory Results - last 24 hr 07/08/16 07/08/16 07/08/16 17:16 17:35 21:58 WBC RBC Hgb Hct MCV MCHC RDW Plt Count MPV INR PTT (Actin FS) 42.5 H POC Glucometer 183 194 07/09/16 07/09/16 07/09/16 02:25 02:25 06:20 WBC 6.6 RBC 3.33 L Hgb 9.7 L Hct 31.7 L MCV 95.3 MCHC 30.6 L RDW 17.4 H Plt Count 98 L MPV 9.8 INR PTT (Actin FS) 33.0 POC Glucometer 295 07/09/16 07/09/16 07/09/16 08:50 09:30 11:44 WBC RBC Hgb Hct MCV MCHC RDW Plt Count MPV INR 1.33 H PTT (Actin FS) 75.6 H D POC Glucometer 189 A/P: 61 year old gentleman with end stage renal disease admitted with chest pain and shortness of breath. Patient is tentatively scheduled for hemodialysis in a.m Ultra-filtration goal of 2.5-3 kg as tolerated. Problem List - Problems (1) Atrial fibrillation with rapid ventricular response Code(s): I48.91 - UNSPECIFIED ATRIAL FIBRILLATION (2) Demand ischemia Code(s): I24.8 - OTHER FORMS OF ACUTE ISCHEMIC HEART DISEASE (3) Diabetes mellitus Code(s): E11.9 - TYPE 2 DIABETES MELLITUS WITHOUT COMPLICATIONS Qualifiers: Diabetes mellitus type: type 1 Diabetes mellitus complication status: with kidney complications Diabetes mellitus complication detail: with chronic kidney disease Chronic kidney disease stage: on chronic dialysis Qualified Code(s): E10.22 - Type 1 diabetes mellitus with diabetic chronic kidney disease; N18.1 - Chronic kidney disease, stage 1 (4) ESRD (end stage renal disease) Code(s): N18.6 - END STAGE RENAL DISEASE
--- NOTE | 2016-07-09 17:08 | PN ---
Progress Note, Physician Chief Complaint: Events noted not in distress History of Present Illness: Patient was seen and examined. Awake and alert. Chart was reviewed Denies chest pain, SOB or palpitations - Current Medication List Current Medications: Active Medications Amiodarone HCl (Cordarone -) 200 mg PO BID [facility] Last Admin: 07/09/16 09:40 Dose: 200 mg Carvedilol (Coreg -) 6.25 mg PO BID [facility] Last Admin: 07/09/16 09:38 Dose: 6.25 mg Docusate Sodium (Colace -) 100 mg PO BID [facility] Last Admin: 07/09/16 09:38 Dose: 100 mg Epoetin Chevy (Procrit -) 10,000 unit IVPUSH ONCE ONE Stop: 07/10/16 06:01 Heparin Sodium (Porcine) (Heparin -) 1,000 unit IVPUSH PRN PRN PRN Reason: Heparin Last Admin: 07/08/16 19:42 Dose: 1,000 unit Heparin Sodium (Porcine) (Heparin -) 5,000 unit IVPUSH PRN PRN PRN Reason: Heparin Last Admin: 07/09/16 03:44 Dose: 5,000 unit Heparin Sodium (Porcine) 25, (000 unit/ Sodium Chloride) 500 mls @ 20 mls/hr IV TITR RACHEL; 1,000 UNIT/HR PRN Reason: Protocol Last Admin: 07/09/16 14:24 Dose: 30 mls/hr Insulin Aspart (Novolog Vial Sliding Scale -) 1 vial SQ TIDAC [facility] PRN Reason: Protocol Last Admin: 07/09/16 11:45 Dose: 2 units Insulin Detemir (Levemir Vial) 12 units SQ [facility] Last Admin: 07/08/16 21:59 Dose: 12 units Lactulose (Cephulac (Oral Use)) 20 gm PO HS [facility] Last Admin: 07/08/16 21:58 Dose: 20 gm Levothyroxine Sodium (Synthroid -) 75 mcg PO DAILY@0700 [facility] Last Admin: 07/09/16 06:29 Dose: 75 mcg Midodrine (Proamatine -) 5 mg PO BID-MID [facility] Last Admin: 07/09/16 09:38 Dose: 5 mg Non-Formulary Medication (Sucroferric Oxyhydroxide [Velphoro]) 500 mg PO TID [facility] Senna (Senna -) 1 tab PO HS [facility] Last Admin: 07/08/16 21:59 Dose: 1 tab Sevelamer Carbonate (Renvela -) 1,600 mg PO TIDCM [facility] Last Admin: 07/09/16 11:47 Dose: 1,600 mg Sucralfate (Carafate -) 2 gm PO BID [facility] Last Admin: 07/09/16 09:38 Dose: 2 gm Warfarin Sodium (Coumadin -) 5 mg PO DAILY@1800 [facility] Last Admin: 07/08/16 17:13 Dose: 5 mg - Objective Vital Signs: Vital Signs Temperature 97.4 F L 07/09/16 14:00 Pulse Rate 93 H 07/09/16 14:00 Respiratory Rate 18 07/09/16 14:00 Blood Pressure 104/57 07/09/16 14:00 O2 Sat by Pulse Oximetry (%) 98 07/09/16 10:00 Neck: Yes: Supple Cardiovascular: Yes: Pulse Irregular, S1, S2 Respiratory: Yes: Diminished Gastrointestinal: Yes: Ascites, Distention Edema: No Additional Findings/Remarks: Review of Systems Cardiovascular: As noted above Respiratory: denies: Cough or Sputum Production Gastrointestinal: denies: Nausea, Vomiting, Diarrhea, Constipation but reports Abdominal Distention Musculoskeletal: No Symptoms Reported Labs: CBC, BMP 07/09/16 02:25 INR, PTT INR 1.33 (0.82-1.09) H 07/09/16 08:50 Assessment/Plan - Problems (1) Atrial fibrillation with rapid ventricular response Code(s): I48.91 - UNSPECIFIED ATRIAL FIBRILLATION (2) Cirrhosis Code(s): K74.60 - UNSPECIFIED CIRRHOSIS OF LIVER Qualifiers: Hepatic cirrhosis type: unspecified hepatic cirrhosis Ascites presence : with ascites Qualified Code(s): K74.60 - Unspecified cirrhosis of liver (3) Coronary artery disease Code(s): I25.10 - ATHSCL HEART DISEASE OF [place] CORONARY ARTERY W/O ANG PCTRS Qualifiers: Coronary Disease-Associated Artery/Lesion type: [place] artery [place] vs. transplanted heart: [place] heart Associated angina: with stable angina Qualified Code(s): I25.119 - Atherosclerotic heart disease of [place] coronary artery with unspecified angina pectoris (4) Diabetes mellitus Code(s): E11.9 - TYPE 2 DIABETES MELLITUS WITHOUT COMPLICATIONS Qualifiers: Diabetes mellitus type: type 1 Diabetes mellitus complication status: with kidney complications Diabetes mellitus complication detail: with chronic kidney disease Chronic kidney disease stage: on chronic dialysis Qualified Code(s): E10.22 - Type 1 diabetes mellitus with diabetic chronic kidney disease; N18.1 - Chronic kidney disease, stage 1 (5) ESRD (end stage renal disease) Code(s): N18.6 - END STAGE RENAL DISEASE (6) HTN (hypertension) Code(s): I10 - ESSENTIAL (PRIMARY) HYPERTENSION Qualifiers: Hypertension type: essential hypertension Qualified Code(s): I10 - Essential (primary) hypertension (7) Hypothyroidism Code(s): E03.9 - HYPOTHYROIDISM, UNSPECIFIED Qualifiers: Hypothyroidism type: acquired Qualified Code(s): E03.9 - Hypothyroidism, unspecified (8) ICD (implantable cardioverter-defibrillator) discharge Code(s): Z45.02 - ENCNTR FOR ADJUST AND MGMT OF AUTOMATIC IMPLNTBL CARD DEFIB (9) Ventricular tachycardia Code(s): I47.2 - VENTRICULAR TACHYCARDIA (10) S/P coronary artery stent placement Code(s): Z95.5 - PRESENCE OF CORONARY ANGIOPLASTY IMPLANT AND GRAFT (11) Demand ischemia Code(s): I24.8 - OTHER FORMS OF ACUTE ISCHEMIC HEART DISEASE (12) Ischemic dilated cardiomyopathy Code(s): I25.5 - ISCHEMIC CARDIOMYOPATHY (13) Ascites Code(s): R18.8 - OTHER ASCITES Qualifiers: Ascites type: other type Qualified Code(s): R18.8 - Other ascites 1. Paroxysmal atrial fibrillation with improved rate-control, [id number] score of 4 2. Syncope referable to sustained VT/VF post appropriate ICD therapy 3. CAD post DC/PCI(stent)/CABG, angina pectoris with demand ischemic injury 4. Ischemic dilated cardiomyopathy with LV systolic dysfunction 5. Post ICD implant (Medtronic) 6. HTN - currently hypotensive on Midodrine therapy 7. DM 8. Hypothyroidism 9. ESRD on HD 10. Advanced liver disease - possible hepatic cirrhosis with ascites - no varices 11. Anemia of CKD and Thrombocytopenia PLAN: 1. Continue Carvedilol 6.25 mg BID (uptitrate as tolerated) and ACEI or ARB if feasible 2. Continue Amiodarone 200 mg BID 3. Heparin and Coumadin as per INR with caution 4. Continue Midodrine 5. HD as per renal service with ultrafiltration as tolerated Further plans are to follow. May transfer to floor care cardiac standpoint Carrington Woodruff MD
[2016-07-09] MEDS: WARFARIN NA 5 MG TABLET (UD) PO SCH (17:16)
[2016-07-09] MEDS: INSULIN DETEMIR 100 UNITS/ML MDV SQ SCH (23:37)
[2016-07-09] MEDS: LACTULOSE 20 GM/30 ML UDC (FOR ORAL USE ONLY) PO SCH (23:37)
[2016-07-09] MEDS: SENNOSIDES 8.6MG TABLET (FP) PO SCH (23:37)
[2016-07-10] MEDS: oxyCODONE HCL 5 MG TABLET PO PRN ×4 (00:22→20:50)
[2016-07-10] MEDS: HEPARIN - 25,000 UNIT in SODIUM CHLORIDE 495 ML IV SCH (03:45)
[2016-07-10] MEDS: INSULIN SLIDING SCALE (NOVOLOG) 1 VIAL SQ SCH ×3 (06:07→16:51)
[2016-07-10] MEDS: LEVOTHYROXINE NA 75 MCG TABLET (FP) PO SCH (06:08)
[2016-07-10] MEDS: MIDODRINE HCL 5 MG TABLET PO SCH ×3 (07:55→17:14)
[2016-07-10] MEDS: SEVELAMER CARBONATE 800 MG TAB (FP) PO SCH ×3 (07:55→17:14)
--- NOTE | 2016-07-10 07:57 | PN ---
Progress Note (short form) - Note Progress Note: NO new complaints, feels well. Vital Signs Period Temp Pulse Resp BP Sys/Lopez Pulse Ox Last 24 Hr 97.3 F-98.1 F 90-197 18-20 90-112/50-62 98-100 S1S2 grossly regular lungs cta ant ascites appears at baseline,not tense no periph edema Imp Ischemic cardiomyopathy AICD ESRD on HD rapid Afib IDDM HTN Cirrhosis, ascites-due to R heart failure likely MARIAN in past-never treated due to multiple medical problems Plan iv heparin bridge to warfarin dc planning once INR is therapeutic can transfer to floor
[2016-07-10] MEDS ORDERED: EPOETIN ALFA 10,000 UNIT/1 ML VIAL IVPUSH ONE (08:00)
[2016-07-10 09:12] LABS: MCH 30.1 pg (25.7-33.7); MCHC 31.4 g/dl (32.0-35.9); MEAN CELL VOLUME 95.7 fl (80-96); MEAN PLT VOLUME 9.8 fl (7.5-11.1); PLATELET COUNT 82 K/MM3 (134-434); RDW 17.5 % (11.9-15.9); WHITE BLOOD COUNT 6.2 K/mm3 (4.0-10.0)
[2016-07-10] MEDS ORDERED: MIDODRINE HCL 5 MG TABLET PO PRN (09:31)
[2016-07-10 09:52] LABS: ALBUMIN 3.5 g/dl (3.4-5.0); BILIRUBIN,TOTAL 0.4 mg/dL (0.2-1.0); CALCIUM 7.8 mg/dL (8.5-10.1); TOT PROT 6.9 g/dl (6.4-8.2)
[2016-07-10] MEDS: ALBUMIN HUMAN 25% 100 ML VIAL IVPB SCH ×4 (10:00→11:30)
[2016-07-10 10:10] LABS: CREATININE 8.7 mg/dL (0.7-1.3)
[2016-07-10 10:26] LABS: INR 1.62 (0.82-1.09)
--- NOTE | 2016-07-10 10:38 | PN ---
Progress Note, Physician History of Present Illness: PULMONARY ALERT,COMFORTABLE,ON DIALYSIS,-RESP DISTRESS, +INCREASE ASCITES - Current Medication List Current Medications: Active Medications Albumin Human (Albumin Human 25% -) 12.5 gm IVPB Q30M [facility] Stop: 07/10/16 11:31 Last Admin: 07/10/16 10:00 Dose: 12.5 gm Amiodarone HCl (Cordarone -) 200 mg PO BID [facility] Last Admin: 07/09/16 23:37 Dose: 200 mg Carvedilol (Coreg -) 6.25 mg PO BID [facility] Last Admin: 07/09/16 23:37 Dose: 6.25 mg Docusate Sodium (Colace -) 100 mg PO BID [facility] Last Admin: 07/09/16 23:37 Dose: 100 mg Heparin Sodium (Porcine) (Heparin -) 1,000 unit IVPUSH PRN PRN PRN Reason: Heparin Last Admin: 07/08/16 19:42 Dose: 1,000 unit Heparin Sodium (Porcine) (Heparin -) 5,000 unit IVPUSH PRN PRN PRN Reason: Heparin Last Admin: 07/09/16 03:44 Dose: 5,000 unit Heparin Sodium (Porcine) 25, (000 unit/ Sodium Chloride) 500 mls @ 20 mls/hr IV TITR RACHEL; 1,000 UNIT/HR PRN Reason: Protocol Last Admin: 07/10/16 03:45 Dose: 30 mls/hr Insulin Aspart (Novolog Vial Sliding Scale -) 1 vial SQ TIDAC [facility] PRN Reason: Protocol Last Admin: 07/10/16 06:07 Dose: Not Given Insulin Detemir (Levemir Vial) 12 units SQ HS [facility] Last Admin: 07/09/16 23:37 Dose: 12 units Lactulose (Cephulac (Oral Use)) 20 gm PO HS [facility] Last Admin: 07/09/16 23:37 Dose: 20 gm Levothyroxine Sodium (Synthroid -) 75 mcg PO DAILY@0700 [facility] Last Admin: 07/10/16 06:08 Dose: Not Given Midodrine (Proamatine -) 5 mg PO BID-MID [facility] Last Admin: 07/10/16 07:55 Dose: 5 mg Midodrine (Proamatine -) 5 mg PO PRN PRN Non-Formulary Medication (Sucroferric Oxyhydroxide [Velphoro]) 500 mg PO TID [facility] Oxycodone HCl (Roxicodone -) 10 mg PO Q8H PRN Last Admin: 07/10/16 07:57 Dose: 10 mg Senna (Senna -) 1 tab PO HS [facility] Last Admin: 07/09/16 23:37 Dose: 1 tab Sevelamer Carbonate (Renvela -) 1,600 mg PO TIDCM [facility] Last Admin: 07/10/16 07:55 Dose: 1,600 mg Sucralfate (Carafate -) 2 gm PO BID [facility] Last Admin: 07/09/16 23:37 Dose: 2 gm Warfarin Sodium (Coumadin -) 5 mg PO DAILY@1800 [facility] Last Admin: 07/09/16 17:16 Dose: 5 mg - Objective Vital Signs: Vital Signs Temperature 97.3 F L 07/10/16 06:00 Pulse Rate 97 H 07/10/16 10:00 Respiratory Rate 18 07/10/16 10:00 Blood Pressure 93/64 07/10/16 10:00 O2 Sat by Pulse Oximetry (%) 99 07/10/16 09:19 Constitutional: Yes: Well Nourished, Calm Eyes: Yes: WNL HENT: Yes: WNL Neck: Yes: WNL Cardiovascular: Yes: Pulse Irregular, S1, S2 Respiratory: Yes: Diminished Gastrointestinal: Yes: Ascites (+ascites,non-tender) Extremities: Yes: WNL Edema: No Labs: CBC, BMP 07/10/16 08:45 07/10/16 08:45 INR, PTT INR 1.62 (0.82-1.09) H 07/10/16 08:45 Assessment/Plan ASSESSMENT AND PLAN: Syncope VTach/VFib s/p ICD discharge Paroxysmal Atrial Fibrillation Ischemic Cardiomyopathy ESRD on HD Ascites Thrombocytopenia - HD per renal - rate/rhythm control with amiodarone, coreg - anticoagulation - O2 to keep SpO2 >90% - monitor CBC ,PLT CT DR SANTANA
--- NOTE | 2016-07-10 11:45 | PN ---
Progress Note, Physician Chief Complaint: Events noted not in distress On HD. Presence of ascites History of Present Illness: Patient was seen and examined. Awake and alert. Chart was reviewed Denies chest pain, SOB or palpitations - Current Medication List Current Medications: Active Medications Amiodarone HCl (Cordarone -) 200 mg PO BID [facility] Last Admin: 07/09/16 23:37 Dose: 200 mg Carvedilol (Coreg -) 6.25 mg PO BID [facility] Last Admin: 07/09/16 23:37 Dose: 6.25 mg Docusate Sodium (Colace -) 100 mg PO BID [facility] Last Admin: 07/09/16 23:37 Dose: 100 mg Heparin Sodium (Porcine) (Heparin -) 1,000 unit IVPUSH PRN PRN PRN Reason: Heparin Last Admin: 07/08/16 19:42 Dose: 1,000 unit Heparin Sodium (Porcine) (Heparin -) 5,000 unit IVPUSH PRN PRN PRN Reason: Heparin Last Admin: 07/09/16 03:44 Dose: 5,000 unit Heparin Sodium (Porcine) 25, (000 unit/ Sodium Chloride) 500 mls @ 20 mls/hr IV TITR RACHEL; 1,000 UNIT/HR PRN Reason: Protocol Last Admin: 07/10/16 03:45 Dose: 30 mls/hr Insulin Aspart (Novolog Vial Sliding Scale -) 1 vial SQ TIDAC [facility] PRN Reason: Protocol Last Admin: 07/10/16 06:07 Dose: Not Given Insulin Detemir (Levemir Vial) 12 units SQ HS [facility] Last Admin: 07/09/16 23:37 Dose: 12 units Lactulose (Cephulac (Oral Use)) 20 gm PO HS [facility] Last Admin: 07/09/16 23:37 Dose: 20 gm Levothyroxine Sodium (Synthroid -) 75 mcg PO DAILY@0700 [facility] Last Admin: 07/10/16 06:08 Dose: Not Given Midodrine (Proamatine -) 5 mg PO BID-MID [facility] Last Admin: 07/10/16 10:37 Dose: Not Given Midodrine (Proamatine -) 5 mg PO PRN PRN Last Admin: 07/10/16 11:07 Dose: 5 mg Non-Formulary Medication (Sucroferric Oxyhydroxide [Velphoro]) 500 mg PO TID [facility] Oxycodone HCl (Roxicodone -) 10 mg PO Q8H PRN Last Admin: 07/10/16 07:57 Dose: 10 mg Senna (Senna -) 1 tab PO HS [facility] Last Admin: 07/09/16 23:37 Dose: 1 tab Sevelamer Carbonate (Renvela -) 1,600 mg PO TIDCM [facility] Last Admin: 07/10/16 07:55 Dose: 1,600 mg Sucralfate (Carafate -) 2 gm PO BID [facility] Last Admin: 07/09/16 23:37 Dose: 2 gm Warfarin Sodium (Coumadin -) 5 mg PO DAILY@1800 [facility] Last Admin: 07/09/16 17:16 Dose: 5 mg - Objective Vital Signs: Vital Signs Temperature 98 F 07/10/16 10:00 Pulse Rate 104 H 07/10/16 10:00 Respiratory Rate 20 07/10/16 10:00 Blood Pressure 90/52 07/10/16 10:00 O2 Sat by Pulse Oximetry (%) 98 07/10/16 10:00 Cardiovascular: Yes: Pulse Irregular, S1, S2 Respiratory: Yes: Diminished Gastrointestinal: Yes: Normal Bowel Sounds, Ascites, Distention. No: Tenderness Edema: No Additional Findings/Remarks: Review of Systems Cardiovascular: As noted above Respiratory: denies: Cough or Sputum Production Gastrointestinal: denies: Nausea, Vomiting, Diarrhea, Constipation but reports Abdominal Distention (+) ascites Musculoskeletal: No Symptoms Reported Labs: CBC, BMP 07/10/16 08:45 07/10/16 08:45 INR, PTT INR 1.62 (0.82-1.09) H 07/10/16 08:45 Assessment/Plan - Problems (1) Atrial fibrillation with rapid ventricular response Code(s): I48.91 - UNSPECIFIED ATRIAL FIBRILLATION (2) Cirrhosis Code(s): K74.60 - UNSPECIFIED CIRRHOSIS OF LIVER Qualifiers: Hepatic cirrhosis type: unspecified hepatic cirrhosis Ascites presence : with ascites Qualified Code(s): K74.60 - Unspecified cirrhosis of liver (3) Coronary artery disease Code(s): I25.10 - ATHSCL HEART DISEASE OF [place] CORONARY ARTERY W/O ANG PCTRS Qualifiers: Coronary Disease-Associated Artery/Lesion type: [place] artery [place] vs. transplanted heart: [place] heart Associated angina: with stable angina Qualified Code(s): I25.119 - Atherosclerotic heart disease of [place] coronary artery with unspecified angina pectoris (4) Diabetes mellitus Code(s): E11.9 - TYPE 2 DIABETES MELLITUS WITHOUT COMPLICATIONS Qualifiers: Diabetes mellitus type: type 1 Diabetes mellitus complication status: with kidney complications Diabetes mellitus complication detail: with chronic kidney disease Chronic kidney disease stage: on chronic dialysis Qualified Code(s): E10.22 - Type 1 diabetes mellitus with diabetic chronic kidney disease; N18.1 - Chronic kidney disease, stage 1 (5) ESRD (end stage renal disease) Code(s): N18.6 - END STAGE RENAL DISEASE (6) HTN (hypertension) Code(s): I10 - ESSENTIAL (PRIMARY) HYPERTENSION Qualifiers: Hypertension type: essential hypertension Qualified Code(s): I10 - Essential (primary) hypertension (7) Hypothyroidism Code(s): E03.9 - HYPOTHYROIDISM, UNSPECIFIED Qualifiers: Hypothyroidism type: acquired Qualified Code(s): E03.9 - Hypothyroidism, unspecified (8) ICD (implantable cardioverter-defibrillator) discharge Code(s): Z45.02 - ENCNTR FOR ADJUST AND MGMT OF AUTOMATIC IMPLNTBL CARD DEFIB (9) Ventricular tachycardia Code(s): I47.2 - VENTRICULAR TACHYCARDIA (10) S/P coronary artery stent placement Code(s): Z95.5 - PRESENCE OF CORONARY ANGIOPLASTY IMPLANT AND GRAFT (11) Demand ischemia Code(s): I24.8 - OTHER FORMS OF ACUTE ISCHEMIC HEART DISEASE (12) Ischemic dilated cardiomyopathy Code(s): I25.5 - ISCHEMIC CARDIOMYOPATHY (13) Ascites Code(s): R18.8 - OTHER ASCITES Qualifiers: Ascites type: other type Qualified Code(s): R18.8 - Other ascites 1. Paroxysmal atrial fibrillation with improved rate-control, [id number] score of 4 2. Syncope referable to sustained VT/VF post appropriate ICD therapy 3. CAD post IA/PCI(stent)/CABG, angina pectoris with demand ischemic injury 4. Ischemic dilated cardiomyopathy with LV systolic dysfunction 5. Post ICD implant (Medtronic) 6. HTN - currently hypotensive on Midodrine therapy 7. DM 8. Hypothyroidism 9. ESRD on HD 10. Advanced liver disease - possible hepatic cirrhosis with ascites - no varices 11. Anemia of CKD and Thrombocytopenia PLAN: 1. Continue Carvedilol 6.25 mg BID (uptitrate as tolerated) and ACEI or ARB if feasible 2. Continue Amiodarone 200 mg BID 3. Heparin and Coumadin as per INR with caution - bridge with Heparin 4. Continue Midodrine 5. HD as per renal service with ultrafiltration as tolerated 6. If ascites accumulate and worsen with clinical symptoms, he may need paracentesis. Further plans are to follow. May transfer to floor care cardiac standpoint. Discharge planning once INR is therapeutic Carrington Woodruff MD
--- NOTE | 2016-07-10 11:53 | PN ---
Progress Note (short form) - Note Progress Note: Patient is seen today undergoing hemodialysis. He denies any shortness of breath or chest pain Vitals: BP 90/55 Lungs: Moderate air entry bilat. Heart: S1 S2 irregular, no gallop Abd: Full, soft, Non-tender, BS normal Ext: No edema Access; right arm AV fistula in use LABS: Laboratory Results - last 24 hr 07/09/16 07/09/16 07/09/16 09:30 11:44 17:15 WBC RBC Hgb Hct MCV MCHC RDW Plt Count MPV INR PTT (Actin FS) 75.6 H D Sodium Potassium Chloride Carbon Dioxide Anion Gap BUN Creatinine Creat Clearance w eGFR POC Glucometer 189 167 Random Glucose Calcium Total Bilirubin AST ALT Alkaline Phosphatase Total Protein Albumin 07/09/16 07/10/16 07/10/16 22:45 05:59 08:45 WBC RBC Hgb Hct MCV MCHC RDW Plt Count MPV INR PTT (Actin FS) 55.7 H Sodium Potassium Chloride Carbon Dioxide Anion Gap BUN Creatinine Creat Clearance w eGFR POC Glucometer 195 192 Random Glucose Calcium Total Bilirubin AST ALT Alkaline Phosphatase Total Protein Albumin 07/10/16 07/10/16 07/10/16 08:45 08:45 08:45 WBC 6.2 RBC 3.03 L Hgb 9.1 L Hct 29.0 L MCV 95.7 MCHC 31.4 L RDW 17.5 H Plt Count 82 L MPV 9.8 INR 1.62 H PTT (Actin FS) Sodium 137 Potassium 4.7 Chloride 101 Carbon Dioxide 22 Anion Gap 14 BUN 84 H D Creatinine 8.7 H* D Creat Clearance w eGFR 6.24 POC Glucometer Random Glucose 220 H D Calcium 7.8 L Total Bilirubin 0.4 AST 12 L D ALT 17 Alkaline Phosphatase 68 Total Protein 6.9 Albumin 3.5 A/P: 61 year old man with end stage renal disease admitted with probable demand myocardial ischemia. Will schedule for repeat hemodialysis in a.m. Discharge planning as per PMD. Problem List - Problems (1) Atrial fibrillation with rapid ventricular response Code(s): I48.91 - UNSPECIFIED ATRIAL FIBRILLATION (2) Demand ischemia Code(s): I24.8 - OTHER FORMS OF ACUTE ISCHEMIC HEART DISEASE (3) Diabetes mellitus Code(s): E11.9 - TYPE 2 DIABETES MELLITUS WITHOUT COMPLICATIONS Qualifiers: Diabetes mellitus type: type 1 Diabetes mellitus complication status: with kidney complications Diabetes mellitus complication detail: with chronic kidney disease Chronic kidney disease stage: on chronic dialysis Qualified Code(s): E10.22 - Type 1 diabetes mellitus with diabetic chronic kidney disease; N18.1 - Chronic kidney disease, stage 1 (4) ESRD (end stage renal disease) Code(s): N18.6 - END STAGE RENAL DISEASE
[2016-07-10] MEDS: CARVEDILOL 6.25 MG TABLET (FP) PO SCH ×2 (13:00→23:03)
[2016-07-10] MEDS: AMIODARONE HCL 200 MG TABLET (FP) PO SCH ×2 (13:00→23:02)
[2016-07-10] MEDS: SUCRALFATE 1 GM TABLET (FP) PO SCH ×2 (13:00→23:02)
[2016-07-10] MEDS: DOCUSATE SODIUM 100 MG CAPSULE (FP) PO SCH ×2 (13:00→23:02)
[2016-07-10] MEDS: WARFARIN NA 3 MG TABLET PO SCH (17:14)
[2016-07-10] MEDS: LACTULOSE 20 GM/30 ML UDC (FOR ORAL USE ONLY) PO SCH (23:02)
[2016-07-10] MEDS: INSULIN DETEMIR 100 UNITS/ML MDV SQ SCH (23:03)
[2016-07-10] MEDS: SENNOSIDES 8.6MG TABLET (FP) PO SCH (23:03)
[2016-07-10] MEDS ORDERED: HEPARIN NA (PORCINE) 5,000 UNITS/ML 1ML VIAL IVPUSH PRN (23:04)
[2016-07-11] MEDS: HEPARIN - 25,000 UNIT in SODIUM CHLORIDE 495 ML IV SCH ×2 (02:30→23:00)
[2016-07-11] MEDS ORDERED: MIDODRINE HCL 5 MG TABLET PO PRN (06:00)
[2016-07-11] MEDS ORDERED: SUCROFERRIC OXYHYDROXIDE 500 MG PO SCH (06:00)
[2016-07-11] MEDS: LEVOTHYROXINE NA 75 MCG TABLET (FP) PO SCH (06:46)
[2016-07-11] MEDS: SEVELAMER CARBONATE 800 MG TAB (FP) PO SCH ×4 (08:31→18:45)
--- NOTE | 2016-07-11 09:19 | PN ---
Progress Note (short form) - Note Progress Note: Constipated. CBC, BMP 07/10/16 08:45 07/10/16 08:45 Vital Signs Period Temp Pulse Resp BP Sys/Lopez Pulse Ox Last 24 Hr 97.7 F-98.8 F 70-104 18-20 81-102/43-65 97-98 S1S2 grossly regular lungs chronically decreased R basal BS ascites appears at baseline,not tense no periph edema Imp Ischemic cardiomyopathy AICD ESRD on HD rapid Afib IDDM HTN Cirrhosis, ascites-due to R heart failure likely MARIAN in past-never treated due to multiple medical problems Plan iv heparin bridge to warfarin dc planning once INR is therapeutic HD today
[2016-07-11] MEDS ORDERED: ACETAMINOPHEN 325 MG TABLET (FP) PO PRN (10:17)
--- NOTE | 2016-07-11 10:23 | PN ---
Progress Note (short form) - Note Progress Note: Patient is out of bed to chair. He denies any shortness of breath or respiratory symptoms. He reports subjective improvement. Vitals: Vital Signs - 24 hr 07/10/16 07/10/16 07/10/16 10:30 11:00 11:30 Temperature Pulse Rate 91 H 90 70 Respiratory 18 18 18 Rate Blood Pressure 83/57 100/65 90/57 O2 Sat by Pulse Oximetry (%) 07/10/16 07/10/16 07/10/16 12:00 12:20 14:04 Temperature 97.9 F Pulse Rate 79 92 H 99 H Respiratory 18 18 20 Rate Blood Pressure 98/57 96/43 102/58 O2 Sat by Pulse Oximetry (%) 07/10/16 07/10/16 07/10/16 17:00 20:43 22:00 Temperature 98.8 F 97.7 F Pulse Rate 98 H 92 H Respiratory 18 18 Rate Blood Pressure 95/50 98/53 O2 Sat by Pulse 98 97 Oximetry (%) 07/11/16 00:00 Temperature Pulse Rate 90 Respiratory 18 Rate Blood Pressure 95/55 O2 Sat by Pulse Oximetry (%) Lungs: Dullness in the right distal lung field Heart: S1 S2 irregular Abd: Obese, soft, non-tender Ext: Trace bipedal edema Neuro: No focality Labs: CBCD WBC 6.2 K/mm3 (4.0-10.0) 07/10/16 08:45 RBC 3.03 M/mm3 (4.00-5.60) L 07/10/16 08:45 Hgb 9.1 GM/dL (11.7-16.9) L 07/10/16 08:45 Hct 29.0 % (35.4-49) L 07/10/16 08:45 MCV 95.7 fl (80-96) 07/10/16 08:45 MCHC 31.4 g/dl (32.0-35.9) L 07/10/16 08:45 RDW 17.5 % (11.9-15.9) H 07/10/16 08:45 Plt Count 82 K/MM3 (134-434) L 07/10/16 08:45 MPV 9.8 fl (7.5-11.1) 07/10/16 08:45 CMP Sodium 137 mmol/L (136-145) 07/10/16 08:45 Potassium 4.7 mmol/L (3.5-5.1) 07/10/16 08:45 Chloride 101 mmol/L (98-107) 07/10/16 08:45 Carbon Dioxide 22 mmol/L (21-32) 07/10/16 08:45 Anion Gap 14 (8-16) 07/10/16 08:45 BUN 84 mg/dL (7-18) H D 07/10/16 08:45 Creatinine 8.7 mg/dL (0.7-1.3) H* D 07/10/16 08:45 Creat Clearance w eGFR 6.24 (>60) 07/10/16 08:45 Calcium 7.8 mg/dL (8.5-10.1) L 07/10/16 08:45 Total Bilirubin 0.4 mg/dL (0.2-1.0) 07/10/16 08:45 AST 12 U/L (15-37) L D 07/10/16 08:45 ALT 17 U/L (12-78) 07/10/16 08:45 Alkaline Phosphatase 68 U/L (45-117) 07/10/16 08:45 Total Protein 6.9 g/dl (6.4-8.2) 07/10/16 08:45 Albumin 3.5 g/dl (3.4-5.0) 07/10/16 08:45 A/P: 61 year old man with ESRD admitted with ischemic cardiomyopathy, new onset A.Fib and anemia, S/P AICD. Hemodialysis x 3 hours today. Problem List - Problems (1) Atrial fibrillation with rapid ventricular response Code(s): I48.91 - UNSPECIFIED ATRIAL FIBRILLATION (2) Demand ischemia Code(s): I24.8 - OTHER FORMS OF ACUTE ISCHEMIC HEART DISEASE (3) Diabetes mellitus Code(s): E11.9 - TYPE 2 DIABETES MELLITUS WITHOUT COMPLICATIONS Qualifiers: Diabetes mellitus type: type 1 Diabetes mellitus complication status: with kidney complications Diabetes mellitus complication detail: with chronic kidney disease Chronic kidney disease stage: on chronic dialysis Qualified Code(s): E10.22 - Type 1 diabetes mellitus with diabetic chronic kidney disease; N18.1 - Chronic kidney disease, stage 1 (4) ESRD (end stage renal disease) Code(s): N18.6 - END STAGE RENAL DISEASE
[2016-07-11] MEDS: LACTULOSE 20 GM/30 ML UDC (FOR ORAL USE ONLY) PO SCH ×2 (10:27→22:22)
[2016-07-11] MEDS: DOCUSATE SODIUM 100 MG CAPSULE (FP) PO SCH ×2 (10:27→22:23)
[2016-07-11] MEDS: MIDODRINE HCL 5 MG TABLET PO SCH ×2 (10:28→18:44)
[2016-07-11 11:23] LABS: MCHC 31.6 g/dl (32.0-35.9); MEAN PLT VOLUME 9.5 fl (7.5-11.1); PLATELET COUNT 80 K/MM3 (134-434); RDW 16.8 % (11.9-15.9); WHITE BLOOD COUNT 6.8 K/mm3 (4.0-10.0)
[2016-07-11 11:34] LABS: PROTHROMBIN TIME (PATIENT) 22.3 SEC (9.98-11.88)
[2016-07-11] MEDS: INSULIN SLIDING SCALE (NOVOLOG) 1 VIAL SQ SCH ×3 (12:24→17:27)
[2016-07-11] MEDS: HEPARIN NA (PORCINE) 5,000 UNITS/ML 1ML VIAL IVPUSH PRN ×2 (12:31→18:54)
--- NOTE | 2016-07-11 13:30 | PN ---
Progress Note, Physician Chief Complaint: Events noted not in distress. Presence of ascites Being dialyzed History of Present Illness: Patient was seen and examined. Awake and alert. Chart was reviewed Denies chest pain, SOB or palpitations - Current Medication List Current Medications: Active Medications Acetaminophen (Tylenol -) 650 mg PO Q4H PRN PRN Reason: FEVER OR PAIN Last Admin: 07/11/16 10:28 Dose: 650 mg Amiodarone HCl (Cordarone -) 200 mg PO BID [facility] Carvedilol (Coreg -) 6.25 mg PO BID [facility] Docusate Sodium (Colace -) 100 mg PO BID [facility] Last Admin: 07/11/16 10:27 Dose: 100 mg Heparin Sodium (Porcine) (Heparin -) 1,000 unit IVPUSH PRN PRN PRN Reason: Heparin Last Admin: 07/11/16 12:31 Dose: 1,000 unit Heparin Sodium (Porcine) (Heparin -) 5,000 unit IVPUSH PRN PRN PRN Reason: Heparin Heparin Sodium (Porcine) 25, (000 unit/ Sodium Chloride) 500 mls @ 20 mls/hr IV TITR RACHEL; 1,000 UNIT/HR PRN Reason: Protocol Last Titration: 07/11/16 12:25 Dose: 1,600 unit/hr Insulin Aspart (Novolog Vial Sliding Scale -) 1 vial SQ TIDAC [facility] PRN Reason: Protocol Last Admin: 07/11/16 12:24 Dose: Not Given Insulin Detemir (Levemir Vial) 12 units SQ HS [facility] Lactulose (Cephulac (Oral Use)) 20 gm PO BID [facility] Last Admin: 07/11/16 10:27 Dose: 20 gm Levothyroxine Sodium (Synthroid -) 75 mcg PO DAILY@0700 [facility] Last Admin: 07/11/16 06:46 Dose: 75 mcg Midodrine (Proamatine -) 10 mg PO PRN PRN PRN Reason: FOR BLOOD PRESSURE SUPPORT Midodrine (Proamatine -) 5 mg PO BID-MID [facility] Last Admin: 07/11/16 10:28 Dose: 5 mg Oxycodone HCl (Roxicodone -) 10 mg PO Q8H PRN Last Admin: 07/10/16 20:50 Dose: 10 mg Senna (Senna -) 1 tab PO HS [facility] Sevelamer Carbonate (Renvela -) 1,600 mg PO TIDCM [facility] Last Admin: 07/11/16 12:25 Dose: Not Given Sucralfate (Carafate -) 2 gm PO BID [facility] Warfarin Sodium (Coumadin -) 6 mg PO DAILY@1800 [facility] Last Admin: 07/10/16 17:14 Dose: 6 mg - Objective Vital Signs: Vital Signs Temperature 97.6 F 07/11/16 10:40 Pulse Rate 58 L 07/11/16 11:45 Respiratory Rate 18 07/11/16 11:45 Blood Pressure 91/59 07/11/16 11:45 O2 Sat by Pulse Oximetry (%) 97 07/10/16 22:00 Neck: Yes: Supple Cardiovascular: Yes: Pulse Irregular, S1, S2 Respiratory: Yes: Diminished Gastrointestinal: Yes: Normal Bowel Sounds, Ascites, Distention Edema: No Labs: CBC, BMP 07/11/16 10:45 07/10/16 08:45 INR, PTT INR 2.00 (0.82-1.09) H 07/11/16 10:45 Assessment/Plan - Problems (1) Atrial fibrillation with rapid ventricular response Code(s): I48.91 - UNSPECIFIED ATRIAL FIBRILLATION (2) Cirrhosis Code(s): K74.60 - UNSPECIFIED CIRRHOSIS OF LIVER Qualifiers: Hepatic cirrhosis type: unspecified hepatic cirrhosis Ascites presence : with ascites Qualified Code(s): K74.60 - Unspecified cirrhosis of liver (3) Coronary artery disease Code(s): I25.10 - ATHSCL HEART DISEASE OF [place] CORONARY ARTERY W/O ANG PCTRS Qualifiers: Coronary Disease-Associated Artery/Lesion type: [place] artery [place] vs. transplanted heart: [place] heart Associated angina: with stable angina Qualified Code(s): I25.119 - Atherosclerotic heart disease of [place] coronary artery with unspecified angina pectoris (4) Diabetes mellitus Code(s): E11.9 - TYPE 2 DIABETES MELLITUS WITHOUT COMPLICATIONS Qualifiers: Diabetes mellitus type: type 1 Diabetes mellitus complication status: with kidney complications Diabetes mellitus complication detail: with chronic kidney disease Chronic kidney disease stage: on chronic dialysis Qualified Code(s): E10.22 - Type 1 diabetes mellitus with diabetic chronic kidney disease; N18.1 - Chronic kidney disease, stage 1 (5) ESRD (end stage renal disease) Code(s): N18.6 - END STAGE RENAL DISEASE (6) HTN (hypertension) Code(s): I10 - ESSENTIAL (PRIMARY) HYPERTENSION Qualifiers: Hypertension type: essential hypertension Qualified Code(s): I10 - Essential (primary) hypertension (7) Hypothyroidism Code(s): E03.9 - HYPOTHYROIDISM, UNSPECIFIED Qualifiers: Hypothyroidism type: acquired Qualified Code(s): E03.9 - Hypothyroidism, unspecified (8) ICD (implantable cardioverter-defibrillator) discharge Code(s): Z45.02 - ENCNTR FOR ADJUST AND MGMT OF AUTOMATIC IMPLNTBL CARD DEFIB (9) Ventricular tachycardia Code(s): I47.2 - VENTRICULAR TACHYCARDIA (10) S/P coronary artery stent placement Code(s): Z95.5 - PRESENCE OF CORONARY ANGIOPLASTY IMPLANT AND GRAFT (11) Demand ischemia Code(s): I24.8 - OTHER FORMS OF ACUTE ISCHEMIC HEART DISEASE (12) Ischemic dilated cardiomyopathy Code(s): I25.5 - ISCHEMIC CARDIOMYOPATHY (13) Ascites Code(s): R18.8 - OTHER ASCITES Qualifiers: Ascites type: other type Qualified Code(s): R18.8 - Other ascites 1. Paroxysmal atrial fibrillation with improved rate-control, [id number] score of 4 2. Syncope referable to sustained VT/VF post appropriate ICD therapy 3. CAD post MS/PCI(stent)/CABG, angina pectoris post demand ischemic injury 4. Ischemic dilated cardiomyopathy with LV systolic dysfunction 5. Post ICD implant (Medtronic) 6. HTN 7. DM 8. Hypothyroidism 9. ESRD on HD 10. Advanced liver disease - possible hepatic cirrhosis with ascites - no varices 11. Anemia of CKD and Thrombocytopenia PLAN: 1. Continue Carvedilol 6.25 mg BID (uptitrate as tolerated) and ACEI or ARB if feasible 2. Continue Amiodarone 200 mg BID 3. Continue Coumadin as per INR with caution 4. Continue Midodrine 5. HD as per renal service with ultrafiltration as tolerated 6. If ascites accumulate and worsen with clinical symptoms, he may need paracentesis. Further plans are to follow. Discharge planning once INR is therapeutic Carrington Woodruff MD
[2016-07-11] MEDS: ALBUMIN HUMAN 25% 100 ML VIAL IVPB SCH ×2 (13:44→13:45)
[2016-07-11] MEDS: AMIODARONE HCL 200 MG TABLET (FP) PO SCH ×2 (14:47→22:23)
[2016-07-11] MEDS: oxyCODONE HCL 5 MG TABLET PO PRN ×2 (14:47→22:30)
[2016-07-11] MEDS: CARVEDILOL 6.25 MG TABLET (FP) PO SCH ×2 (14:48→22:24)
[2016-07-11] MEDS: SUCRALFATE 1 GM TABLET (FP) PO SCH ×2 (14:49→22:22)
[2016-07-11] MEDS ORDERED: PT OWN MED DRAWER 7, Y5N ONE ×3 (15:06→21:15)
[2016-07-11] MEDS: WARFARIN NA 3 MG TABLET PO SCH (18:44)
[2016-07-11] MEDS ORDERED: INSULIN (NOVOLOG) ASPART 100 UNITS/ML 10ML VIAL ONE (18:52)
[2016-07-11] MEDS ORDERED: SENNOSIDES 8.6MG TABLET (FP) PO SCH (22:00)
[2016-07-11] MEDS ORDERED: LACTULOSE 20 GM/30 ML UDC (FOR ORAL USE ONLY) PO SCH (22:00)
[2016-07-11] MEDS ORDERED: INSULIN DETEMIR 100 UNITS/ML MDV SQ SCH (22:00)
[2016-07-12] MEDS: HEPARIN NA (PORCINE) 5,000 UNITS/ML 1ML VIAL IVPUSH PRN (02:35)
[2016-07-12] MEDS: INSULIN SLIDING SCALE (NOVOLOG) 1 VIAL SQ SCH ×2 (06:24→11:50)
[2016-07-12] MEDS: LEVOTHYROXINE NA 75 MCG TABLET (FP) PO SCH (06:24)
[2016-07-12] MEDS: SEVELAMER CARBONATE 800 MG TAB (FP) PO SCH ×2 (08:16→12:01)
[2016-07-12 08:25] LABS: INR 2.32 (0.82-1.09)
--- NOTE | 2016-07-12 09:27 | PN ---
Progress Note (short form) - Note Progress Note: Constipated. INR 2.33 S1S2 grossly regular lungs chronically decreased R basal BS ascites appears at baseline,not tense no periph edema Imp Ischemic cardiomyopathy AICD ESRD on HD rapid Afib IDDM HTN Cirrhosis, ascites-due to R heart failure likely MARIAN in past-never treated due to multiple medical problems Plan dc home today on warfarin, f/up in office in 2 days dc heparin
[2016-07-12 10:07] VITALS: BP 100/52; PULSE 109; TEMP 97.2
[2016-07-12] MEDS: DOCUSATE SODIUM 100 MG CAPSULE (FP) PO SCH (10:13)
[2016-07-12] MEDS: AMIODARONE HCL 200 MG TABLET (FP) PO SCH (10:13)
[2016-07-12] MEDS: CARVEDILOL 6.25 MG TABLET (FP) PO SCH (10:13)
[2016-07-12] MEDS: LACTULOSE 20 GM/30 ML UDC (FOR ORAL USE ONLY) PO SCH (10:13)
[2016-07-12] MEDS: MIDODRINE HCL 5 MG TABLET PO SCH (10:13)
[2016-07-12] MEDS: SUCRALFATE 1 GM TABLET (FP) PO SCH (10:14)
[2016-07-12] MEDS: oxyCODONE HCL 5 MG TABLET PO PRN (10:48)
[2016-07-12] MEDS ORDERED: PT OWN MED DRAWER 7, Y5N ONE (12:11)
--- NOTE | 2016-07-13 08:13 | DS ---
Physical Examination Vital Signs: Vital Signs Temperature 97.2 F L 07/12/16 10:03 Pulse Rate 109 H 07/12/16 10:03 Respiratory Rate 24 07/12/16 10:03 Blood Pressure 100/52 07/12/16 10:03 O2 Sat by Pulse Oximetry (%) 96 07/11/16 22:00 Constitutional: Yes: No Distress Eyes: Yes: EOM Intact HENT: Yes: Normocephalic Cardiovascular: Yes: Pulse Irregular Respiratory: Yes: CTA Bilaterally (decreased BS at right base) Gastrointestinal: Yes: Abdomen, Obese, Ascites Edema: No Labs: CBC, BMP 07/11/16 10:45 07/10/16 08:45 Discharge Summary Reason For Visit: RAPID AFIB Current Active Problems Ascites (Acute) Atrial fibrillation with rapid ventricular response (Acute) Cirrhosis (Acute) Coronary artery disease (Acute) Demand ischemia (Acute) Diabetes mellitus (Acute) ESRD (end stage renal disease) (Acute) HTN (hypertension) (Acute) Hypothyroidism (Acute) ICD (implantable cardioverter-defibrillator) discharge (Acute) Ischemic dilated cardiomyopathy (Acute) Precordial chest pain (Acute) S/P coronary artery stent placement (Acute) Systolic and diastolic CHF, acute on chronic (Acute) Ventricular tachycardia (Acute) Hospital Course: Admitted for rapid afib, chest tightness and mildly positive cardiac enzymes was started on amiodarone, iv heaprin and bridged to po warfarin. has had EGD -in view of retirement need for AC, to evaluate for bleeding risk-no varices, no ulcers currently rate is controlled, INR therapeutic,medically stable to dc home with close outpt f/up Condition: Guarded - Instructions Referrals: Mandeep Sutton MD [Primary Care Provider] - Disposition: HOME - Home Medications Comprehensive Discharge Medication List: Ambulatory Orders Insulin Glargine,Hum.rec.anlog [Lantus (10mL VIAL) -] 12 units SQ HS 09/13/14 Levothyroxine [Synthroid -] 75 mcg PO DAILY 09/13/14 Carvedilol 6.25 mg PO BID 04/27/16 Sodium Chloride Tablet - 650 mg PO DAILY 04/27/16 Midodrine HCl 5 mg PO BID #0 04/29/16 Sevelamer Carbonate [Renvela -] 1,600 mg PO TIDCM tab 04/29/16 Amiodarone HCl [Cordarone -] 200 mg PO BID #60 tablet 07/12/16 Lactulose (Oral Use) [Cephulac -] 20 gm PO BID #60 udc 07/12/16 Midodrine HCl [Proamatine -] 5 mg PO BID-MID tablet 07/12/16 Midodrine HCl [Proamatine -] 10 mg PO PRN PRN #0 tablet 07/12/16 Oxycodone HCl/Acetaminophen [Percocet 10-325 mg Tablet] 1 each PO BID PRN #60 tablet MDD 2 07/12/16 Sucralfate [Carafate -] 2 gm PO BID #60 tablet 07/12/16 Warfarin Sodium 5 mg PO DAILY #30 tablet 07/12/16
== END 2016-07-12 13:03 | disposition home or self-care (01) | DRG 308 ==
LOC: FER 14:00 → FM/S 16:53 → OBSVTOIN 22:53 → JICU 07-03 15:24 → J4W 07-05 21:04 → J5S 07-10 20:40
PROVIDERS: ADMIT Internal Medicine; ATTEND Internal Medicine
PROC: 5A1D60Z (ICD-10-PCS; 2016-07-03)
PROC: 0DJ08ZZ Inspection of Upper Intestinal Tract, Via Natural or Artificial Opening Endoscopic (ICD-10-PCS; principal; 2016-07-07 11:00)
DX: I48.1 Persistent atrial fibrillation (principal); N18.6 End stage renal disease; I13.2 Hypertensive heart and chronic kidney disease with heart failure and with stage 5 chronic kidney disease, or end stage renal disease; R18.8 Other ascites; I24.8 Other forms of acute ischemic heart disease; I50.22 Chronic systolic (congestive) heart failure; D64.9 Anemia, unspecified; J44.9 Chronic obstructive pulmonary disease, unspecified; E78.5 Hyperlipidemia, unspecified; I25.10 Atherosclerotic heart disease of native coronary artery without angina pectoris; Z95.0 Presence of cardiac pacemaker; Z86.73 Personal history of transient ischemic attack (TIA), and cerebral infarction without residual deficits; Z95.1 Presence of aortocoronary bypass graft; E11.22 Type 2 diabetes mellitus with diabetic chronic kidney disease; Z99.2 Dependence on renal dialysis; E11.319 Type 2 diabetes mellitus with unspecified diabetic retinopathy without macular edema; I25.5 Ischemic cardiomyopathy; Z79.4 Long term (current) use of insulin; K74.60 Unspecified cirrhosis of liver; E03.9 Hypothyroidism, unspecified; D69.6 Thrombocytopenia, unspecified; Z95.5 Presence of coronary angioplasty implant and graft; E83.39 Other disorders of phosphorus metabolism; D63.1 Anemia in chronic kidney disease; I34.0 Nonrheumatic mitral (valve) insufficiency; I36.1 Nonrheumatic tricuspid (valve) insufficiency; R55 Syncope and collapse; I47.2 Ventricular tachycardia; K29.60 Other gastritis without bleeding; K59.00 Constipation, unspecified
CPT/HCPCS: 36415; 71010-TC; 80048; 80053; 82105; 82272; 82550; 83735; 83880; 84100; 84443; 84484; 85025; 85027; 85610; 85730; 86480; 86704; 86706; 86708; 86803; 87340; 93005; 97001-GP; 97116-GP; 99285-25; G0378; J0885; J1644

== ENCOUNTER 2016-08-02 17:01 | Inpatient (IN) | payer OTHER ==
[2016-08-02 17:08] VITALS: BMI 25.6
--- NOTE | 2016-08-02 17:28 | PDOC ---
History of Present Illness <Kojo Mathews - Last Filed: 08/02/16 19:17> - History of Present Illness Initial Comments: 08/02/16 17:23 61-year-old male with a past medical history of anemia, COPD, hypertension, hyperlipidemia, diabetes, CVA, CAD status post stent and CABG, ischemic cardiomyopathy status post Medtronic ICD, CHF, end-stage renal disease on hemodialysis, Sunday, who was dialyzed yesterday, but did not have a complete dialysis due to an episode of hypotension, he also has cirrhosis and ascites, thought to be based on an GONG, but no history of esophageal varices, (he is currently anticoagulated), and MARIAN and his lungs which has not been treated He has an AV fistula graft for dialysis,, and AICD, and he did have a prior cholecystectomy Patient was recently hospitalized at [facility] after a syncopal episode A recent upper endoscopy was negative for esophageal varices He has a recent prior abdominal ultrasound documenting ascites, and advanced hepatocellular disease He also has a prior CT scan of the abdomen and pelvis, which shows mild aorta iliac calcifications, but no reports of AAA Patient states that he was at dialysis yesterday, which was cut short due to an episode of hypotension, and at that time he started developing upper abdominal pain and nausea. His dialysis has needed to be cut short on occasion in the past due to episodes of hypotension, and this was not the first episode Patient has had upper midepigastric abdominal pain, nausea, and vomiting intermittently since yesterday There is no blood in his vomitus but he does admit to black vomitus He states there is no change in his chronic abdominal distention from his ascites He denies any diarrhea He denies any fevers or chills He denies any midsternal chest pain He states he did have a small bowel movement today, without bright red blood, but did say it looked dark He denies any shortness of breath He denies any other associated symptoms, and is complaining of upper midepigastric abdominal pain Patient is a poor historian, and the history is obtained from old records, as well as patient's son and patient Pt stopped his coumadin a few days ago <Brianna Back - Last Filed: 08/04/16 07:27> - General Chief Complaint: Chest Pain Stated Complaint: EPIGASTRIC PAIN Time Seen by Provider: 08/02/16 17:20 Past History <Kojo Mathews - Last Filed: 08/02/16 19:17> - Past Medical History Anemia: Yes Asthma: Yes (HX BRONCHITIS, COPD) Cancer: No Cardiac Disorders: Yes (S/P open heart SX c/ bypass, stent placement) CVA: Yes (no residual) COPD: No CHF: Yes (CAD) Dementia: No Diabetes: Yes (DIABETES TYPE 2) Dialysis: Yes (S[facility]Sun) GI Disorders: Yes (reflux) Disorders: Yes (ESRD-DIALYSIS TUES,TH,SAT) HTN: Yes Hypercholesterolemia: Yes Liver Disease: No Suicide Attempt (Hx): No Seizures: No Thyroid Disease: No - Surgical History Abdominal Surgery: Yes Appendectomy: No Cardiac Surgery: Yes (Stent placement, Open heart SX, BYpass SX) Cholecystectomy: Yes Lung Surgery: No Neurologic Surgery: No Orthopedic Surgery: No - Immunization History Td Vaccination: Yes Immunization Up to Date: Yes - Psycho/Social/Smoking Cessation Hx Anxiety: Yes Suicidal Ideation: No Smoking Status: No Smoking History: Never smoked Years of Tobacco Use: 0 Have you smoked in the past 12 months: No Number of Cigarettes Smoked Daily: 0 Cigars Per Day: 0 Information on smoking cessation initiated: No Hx Alcohol Use: No Drug/Substance Use Hx: No Substance Use Type: None Hx Substance Use Treatment: No <Brianna Back - Last Filed: 08/04/16 07:27> - Past Medical History Allergies/Adverse Reactions: Allergies Allergy/AdvReac Type Severity Reaction Status Date / Time No Known Drug Allergies Allergy Verified 08/02/16 17:31 Home Medications: Ambulatory Orders Insulin Glargine,Hum.rec.anlog [Lantus (10mL VIAL) -] 12 units SQ HS 09/13/14 Levothyroxine [Synthroid -] 75 mcg PO DAILY 09/13/14 Carvedilol 6.25 mg PO BID 04/27/16 Sodium Chloride Tablet - 650 mg PO DAILY 04/27/16 Midodrine HCl 5 mg PO BID #0 04/29/16 Sevelamer Carbonate [Renvela -] 1,600 mg PO TIDCM tab 04/29/16 Amiodarone HCl [Cordarone -] 200 mg PO BID #60 tablet 07/12/16 Lactulose (Oral Use) [Cephulac -] 20 gm PO BID #60 udc 07/12/16 Oxycodone HCl/Acetaminophen [Percocet 10-325 mg Tablet] 1 each PO BID PRN #60 tablet MDD 2 07/12/16 Sucralfate [Carafate -] 2 gm PO BID #60 tablet 07/12/16 *Physical Exam - Vital Signs Last Vital Signs Temp Pulse Resp BP Pulse Ox 98.2 F 88 20 94/62 100 08/02/16 17:27 08/02/16 17:27 08/02/16 17:27 08/02/16 17:27 08/02/16 17:27 <Kojo Mathews - Last Filed: 08/02/16 19:17> - Vital Signs Last Vital Signs Temp Pulse Resp BP Pulse Ox 99.6 F 96 H 18 131/64 96 08/02/16 17:05 08/02/16 17:05 08/02/16 17:05 08/02/16 17:05 08/02/16 17:05 - Physical Exam Comments: 08/02/16 17:37 Physical exam Last Vital Signs Temp Pulse Resp BP Pulse Ox 98.2 F 88 20 94/62 100 08/02/16 17:27 08/02/16 17:27 08/02/16 17:27 08/02/16 17:27 08/02/16 17:27 GENERAL: The patient is awake, alert, and fully oriented, and in no apparent distress. HEAD: Normal with no signs of trauma. EYES: sclera nml ENT: Mucous membranes moist LUNGS: Breath sounds equal, clear to auscultation bilaterally. No wheezes, and no crackles. HEART: Irregularly irregular rhythm ABDOMEN: The abdomen is distended but soft, with ascites There is upper midepigastric tenderness to palpation without guarding or rebound No other abdominal tenderness is noted RECTAL: There is dark to black stool, which is heme-negative to my bedside exam , and the prostate is extremely enlarged PULSES; femoral pulses are full and equal bilaterally Dorsalis pedis pulses are present and palpable bilaterally EXTREMITIES: Chronic venous stasis changes are noted NEUROLOGICAL: Patient is alert and can pull himself up to a sitting position, and answering simple questions PSYCH: Normal mood, normal affect. SKIN: Warm, Dry, <Tapia-Carlos,Brianna - Last Filed: 08/04/16 07:27> ED Treatment Course - LABORATORY CBC & Chemistry Diagram: 08/02/16 17:28 08/02/16 17:28 <Kojo Mathews - Last Filed: 08/02/16 19:17> - LABORATORY CBC & Chemistry Diagram: 08/03/16 13:50 08/03/16 13:50 <Brianna Back - Last Filed: 08/04/16 07:27> Medical Decision Making - Medical Decision Making 08/02/16 18:48 Dr. Sutton's service was contacted. Awaiting call back. 08/02/16 18:52 Dr. Teran called back for Dr. Sutton. Case discussed. Agreed to admit patient to tele at [facility]. <Kojo Mathews - Last Filed: 08/02/16 19:17> - Medical Decision Making 08/02/16 17:41 EKG Atrial fibrillation with a ventricular response rate of 90 to Left axis deviation -80 Right bundle branch block Prolonged QT with a QTC of 526 There are Q waves present across the anterior precordium There is diffuse nonspecific ST-T wave abnormalities When compared to the EKG of 07/03/60 Today's EKG is unchanged from the prior EKG 08/02/16 18:56 Laboratory Results - last 24 hr 08/02/16 08/02/16 08/02/16 17:28 17:28 17:28 WBC 6.3 D RBC 4.06 Hgb 11.3 L Hct 36.3 MCV 89.5 MCHC 31.0 L RDW 16.5 H Plt Count 74 L MPV 9.8 D INR Sodium 132 L Potassium 5.0 D Chloride 98 Carbon Dioxide 19 L D Anion Gap 15 BUN 98 H D Creatinine 9.8 H* Creat Clearance w eGFR 5.44 Random Glucose 183 H D Calcium 8.6 Magnesium 2.5 H Total Bilirubin 0.3 D AST 9 L D ALT 11 D Alkaline Phosphatase 83 D Creatine Kinase 28 L Troponin I 0.04 D Total Protein 8.3 Albumin 4.1 Lipase 41 Stool Occult Blood 08/02/16 08/02/16 17:35 18:09 WBC RBC Hgb Hct MCV MCHC RDW Plt Count MPV INR 1.25 H Sodium Potassium Chloride Carbon Dioxide Anion Gap BUN Creatinine Creat Clearance w eGFR Random Glucose Calcium Magnesium Total Bilirubin AST ALT Alkaline Phosphatase Creatine Kinase Troponin I Total Protein Albumin Lipase Stool Occult Blood Negative CBC significant for, thrombocytopenia INR 1.25 CMP significant for delusional hyponatremia, potassium 5.0 BUN 98/creatinine 9.8 Cardiac enzymes-CK 28/troponin 0.04 Lactic acid, ammonia level, and BNP pending CT scan of the abdomen and pelvis as read by me- There is a significant amount of ascites in the abdomen, and is somewhat distended stomach No evidence of bowel obstruction is seen The aorta is calcified, but no aortic aneurysm is seen Awaiting radiologist report Portable chest x-ray as read by me- Enlarged heart Right pleural effusion Mild pulmonary vascular congestion Similar to most recent chest x-ray from [facility] and all results discussed with Dr. Billings - will admit to telemetry at [facility] Awaiting remaining lab work and radiology reports Lactic acid normal <Brianna Back - Last Filed: 08/04/16 07:27> *DC/Admit/Observation/Transfer - Attestations Scribe Attestion: 08/02/16 17:44 Documentation prepared by Kojo Mathews, acting as medical research associate for Brianna Fitzpatrick MD. <Kojo Mathews - Last Filed: 08/02/16 19:17> - Discharge Dispostion Admit: Yes <Brianna Back - Last Filed: 08/04/16 07:27> Diagnosis at time of Disposition: Vomiting, ESRD (end stage renal disease), Pleural effusion Abdominal pain Qualifiers: Abdominal location: epigastric Qualified Code(s): R10.13 - Epigastric pain Atrial fibrillation Qualifiers: Atrial fibrillation type: persistent Qualified Code(s): I48.1 - Persistent atrial fibrillation Ascites Qualifiers: Ascites type: other type Cirrhosis Qualifiers: Hepatic cirrhosis type: unspecified hepatic cirrhosis Ascites presence: with ascites Qualified Code(s): K74.60 - Unspecified cirrhosis of liver Congestive heart failure Qualifiers: Congestive heart failure type: systolic Congestive heart failure chronicity: chronic Qualified Code(s): I50.22 - Chronic systolic (congestive) heart failure
[2016-08-02 17:52] LABS: MCH 27.8 pg (25.7-33.7); MEAN CELL VOLUME 89.5 fl (80-96); MEAN PLT VOLUME 9.8 fl (7.5-11.1); PLATELET COUNT 74 K/MM3 (134-434); RDW 16.5 % (11.9-15.9); WHITE BLOOD COUNT 6.3 K/mm3 (4.0-10.0)
[2016-08-02 17:56] LABS: INR 1.25 (0.82-1.09); PROTHROMBIN TIME (PATIENT) 13.6 SEC (10.2-13.0)
[2016-08-02 18:04] LABS: ALBUMIN 4.1 g/dl (3.5-5.0); CALCIUM 8.6 mg/dl (8.4-10.2); MAGNESIUM 2.5 mg/dL (1.8-2.4); TOT PROT 8.3 g/dl (6.4-8.3)
[2016-08-02 18:14] LABS: BILIRUBIN,TOTAL 0.3 mg/dl (0.2-1.0)
[2016-08-02] MEDS ORDERED: SODIUM CHLORIDE 250 ML IV STA (18:14)
[2016-08-02 18:15] LABS: TROPONIN I (DFP) 0.04 ng/ml (0.03-0.50)
[2016-08-02 18:33] LABS: CREATININE 9.8 mg/dl (0.6-1.3)
[2016-08-02] MEDS ORDERED: INSULIN SLIDING SCALE (NOVOLOG) 1 VIAL SQ PRN (22:22)
--- NOTE | 2016-08-02 22:31 | HP ---
Admitting History and Physical - Primary Care Physician PCP: Cecilia Teran - Admission Chief Complaint: abd.pain, hypotension History of Present Illness: developed hypotension(as usual) during HD yesterday, so his HD was cut short to 3 hours, since then he has intermittent abdominal pain and nausea with two episodes of vomiting. Came to [place] er because of pain and nausea, he was persistently hypotensive in er, requring 250 cc iv bolus. he was transferred to [facility] for telemetry monitoring and further care. reported dark vomit and very dark black stool. in er guiac negative. recent admission for rapid Afib/syncope a month ago, has been on warfarin since but he stopped 4-5 days ago because levels were too high. during last admission has had unremarkable EGD without ulcers or varices. History Source: Patient Limitations to Obtaining History: No Limitations - Past Medical History SOMMELIER: Yes: Peripheral Neuropathy Cardiovascular: Yes: AFIB, CAD, CHF Pulmonary: Yes: Other (h/o MARIAN in lungs-not treated) Gastrointestinal: Yes: Other (cirrhosis-based on GONG likely) Renal/: Yes: Renal Failure Heme/Onc: Yes: Anemia Psych: Yes: Anxiety Endocrine: Yes: Diabetes Mellitus (IDDM), Hypothyroidism - Past Surgical History Past Surgical History: Yes: AICD (PPM), AV Fistula/Graft, CABG (3 vessel in 2009 ), Cholecystectomy (2006) - Smoking History Smoking history: Never smoked Have you smoked in the past 12 months: No Aproximately how many cigarettes per day: 0 - Alcohol/Substance Use Hx Alcohol Use: No History of Substance Use: reports: None - Social History ADL: Independent Home Medications - Allergies Allergies/Adverse Reactions: Allergies Allergy/AdvReac Type Severity Reaction Status Date / Time No Known Drug Allergies Allergy Verified 08/02/16 17:31 - Home Medications Home Medications: Ambulatory Orders Insulin Glargine,Hum.rec.anlog [Lantus (10mL VIAL) -] 12 units SQ HS 09/13/14 Levothyroxine [Synthroid -] 75 mcg PO DAILY 09/13/14 Carvedilol 6.25 mg PO BID 04/27/16 Sodium Chloride Tablet - 650 mg PO DAILY 04/27/16 Midodrine HCl 5 mg PO BID #0 04/29/16 Sevelamer Carbonate [Renvela -] 1,600 mg PO TIDCM tab 04/29/16 Amiodarone HCl [Cordarone -] 200 mg PO BID #60 tablet 07/12/16 Lactulose (Oral Use) [Cephulac -] 20 gm PO BID #60 udc 07/12/16 Oxycodone HCl/Acetaminophen [Percocet 10-325 mg Tablet] 1 each PO BID PRN #60 tablet MDD 2 07/12/16 Sucralfate [Carafate -] 2 gm PO BID #60 tablet 07/12/16 Family Disease History - Family Disease History Family History: Unremarkable Review of Systems - Review of Systems Constitutional: reports: Weakness Cardiovascular: denies: Chest Pain, Edema, Palpitations, Shortness of Breath Respiratory: denies: SOB on Exertion Gastrointestinal: reports: Abdominal Pain, Nausea, Vomiting Musculoskeletal: denies: No Symptoms Integumentary: denies: No Symptoms Psychiatric: denies: No Symptoms Physical Examination Vital Signs: Vital Signs Temperature 97.2 F L 08/02/16 22:05 Pulse Rate 92 H 08/02/16 22:05 Respiratory Rate 20 08/02/16 22:05 Blood Pressure 106/64 08/02/16 22:05 O2 Sat by Pulse Oximetry (%) 99 08/02/16 19:28 Constitutional: Yes: No Distress, Calm Eyes: Yes: EOM Intact HENT: Yes: Normocephalic Neck: Yes: Trachea Midline Cardiovascular: Yes: Pulse Irregular, S1, S2 Respiratory: Yes: CTA Bilaterally, Other (decreased BS at left base) Gastrointestinal: Yes: Normal Bowel Sounds, Soft, Ascites. No: Tenderness, Epigastrium, Tenderness, Rebound Musculoskeletal: Yes: WNL Extremities: Yes: WNL Edema: No Peripheral Pulses WNL: Yes Integumentary: Yes: WNL Psychiatric: Yes: WNL Labs: Laboratory Results - last 24 hr 08/02/16 08/02/16 08/02/16 17:28 17:28 17:28 WBC 6.3 D RBC 4.06 Hgb 11.3 L Hct 36.3 MCV 89.5 MCHC 31.0 L RDW 16.5 H Plt Count 74 L MPV 9.8 D INR Sodium 132 L Potassium 5.0 D Chloride 98 Carbon Dioxide 19 L D Anion Gap 15 BUN 98 H D Creatinine 9.8 H* Creat Clearance w eGFR 5.44 Random Glucose 183 H D Lactic Acid Calcium 8.6 Magnesium 2.5 H Total Bilirubin 0.3 D AST 9 L D ALT 11 D Alkaline Phosphatase 83 D Ammonia Creatine Kinase 28 L Troponin I 0.04 D B-Natriuretic Peptide 38561.50 H Total Protein 8.3 Albumin 4.1 Lipase 41 Stool Occult Blood Blood Type Antibody Screen 08/02/16 08/02/16 08/02/16 17:35 17:35 17:35 WBC RBC Hgb Hct MCV MCHC RDW Plt Count MPV INR 1.25 H Sodium Potassium Chloride Carbon Dioxide Anion Gap BUN Creatinine Creat Clearance w eGFR Random Glucose Lactic Acid 1.267 Calcium Magnesium Total Bilirubin AST ALT Alkaline Phosphatase Ammonia Creatine Kinase Troponin I B-Natriuretic Peptide Total Protein Albumin Lipase Stool Occult Blood Blood Type AB POSITIVE Antibody Screen Negative 08/02/16 08/02/16 17:35 18:09 Alkaline Phosphatase Ammonia 63.63 H Stool Occult Blood Negative Imaging - Results Chest X-ray: Report Reviewed Cat Scan: Report Reviewed Problem List - Problems (1) Abdominal pain Code(s): R10.9 - UNSPECIFIED ABDOMINAL PAIN Qualifiers: Abdominal location: epigastric Qualified Code(s): R10.13 - Epigastric pain (2) Ascites Code(s): R18.8 - OTHER ASCITES Qualifiers: Ascites type: other type (3) Atrial fibrillation Code(s): I48.91 - UNSPECIFIED ATRIAL FIBRILLATION Qualifiers: Atrial fibrillation type: persistent Qualified Code(s): I48.1 - Persistent atrial fibrillation (4) Cirrhosis Code(s): K74.60 - UNSPECIFIED CIRRHOSIS OF LIVER Qualifiers: Hepatic cirrhosis type: unspecified hepatic cirrhosis Ascites presence : with ascites Qualified Code(s): K74.60 - Unspecified cirrhosis of liver (5) Congestive heart failure Code(s): I50.9 - HEART FAILURE, UNSPECIFIED Qualifiers: Congestive heart failure type: systolic Congestive heart failure chronicity: chronic Qualified Code(s): I50.22 - Chronic systolic ( congestive) heart failure (6) Coronary artery disease Code(s): I25.10 - ATHSCL HEART DISEASE OF [place] CORONARY ARTERY W/O ANG PCTRS Qualifiers: Coronary Disease-Associated Artery/Lesion type: [place] artery [place] vs. transplanted heart: [place] heart Associated angina: with stable angina Qualified Code(s): I25.119 - Atherosclerotic heart disease of [place] coronary artery with unspecified angina pectoris (7) Diabetes mellitus Code(s): E11.9 - TYPE 2 DIABETES MELLITUS WITHOUT COMPLICATIONS Qualifiers: Diabetes mellitus type: type 1 Diabetes mellitus complication status: with kidney complications Diabetes mellitus complication detail: with chronic kidney disease Chronic kidney disease stage: on chronic dialysis Qualified Code(s): E10.22 - Type 1 diabetes mellitus with diabetic chronic kidney disease; N18.1 - Chronic kidney disease, stage 1 (8) ESRD (end stage renal disease) Code(s): N18.6 - END STAGE RENAL DISEASE (9) Hypothyroidism Code(s): E03.9 - HYPOTHYROIDISM, UNSPECIFIED Qualifiers: Hypothyroidism type: acquired Qualified Code(s): E03.9 - Hypothyroidism, unspecified (10) Ischemic dilated cardiomyopathy Code(s): I25.5 - ISCHEMIC CARDIOMYOPATHY Assessment/Plan serial cardiac enzymes r/o ischemia HR is controlled, cont amiodarone, but hold coreg for now may need paracentesis of ascites if cardic tests are ok hold off of fluids if BP maintains hold anticoagulation until repeat CBCs are stable, without further drop and paracentesis
[2016-08-03 00:12] LABS: BASOPHIL 1.5 % (0-2.0); EOSINOPHIL 4.4 % (0-4.5); MCH 28.9 pg (25.7-33.7); MCHC 31.6 g/dl (32.0-35.9); MEAN CELL VOLUME 91.5 fl (80-96); NEUTROPHILS 77.9 % (42.8-82.8); RDW 17.4 % (11.9-15.9); WHITE BLOOD COUNT 5.7 K/mm3 (4.0-10.0)
[2016-08-03 00:37] LABS: TROPONIN I 0.02 ng/ml (0.00-0.05)
[2016-08-03 02:14] LABS: MEAN PLT VOLUME 10.3 fl (7.5-11.1); PLATELET COMMENT2 NO CLOTTING DETECTED; PLATELET COMMENT3 FEW GIANT PLTS; PLATELET COUNT 72 K/MM3 (134-434); PLATELET ESTIMATE DECREASED (NORMAL)
[2016-08-03] MEDS: oxyCODONE HCL 5 MG TABLET PO PRN ×2 (06:00→17:36)
[2016-08-03] MEDS: LEVOTHYROXINE NA 75 MCG TABLET (FP) PO SCH (06:12)
[2016-08-03] MEDS: SEVELAMER CARBONATE 800 MG TAB (FP) PO SCH ×3 (08:45→17:37)
[2016-08-03] MEDS ORDERED: PT OWN MED DRAWER 7, Y5N ONE (10:11)
[2016-08-03] MEDS: LACTULOSE 20 GM/30 ML UDC (FOR ORAL USE ONLY) PO SCH ×2 (10:14→21:53)
[2016-08-03] MEDS: AMIODARONE HCL 200 MG TABLET (FP) PO SCH ×2 (10:14→21:54)
[2016-08-03] MEDS: SUCRALFATE 1 GM TABLET (FP) PO SCH ×2 (10:14→21:53)
[2016-08-03] MEDS: SODIUM CHLORIDE 1 GM TABLET PO SCH (10:17)
[2016-08-03] MEDS: MIDODRINE HCL 5 MG TABLET PO SCH ×3 (10:17→18:27)
--- NOTE | 2016-08-03 10:18 | PN ---
Progress Note (short form) - Note Progress Note: Feels better since in hospital, no further abdominal pain, nauseated this am, threw up once clears. CBC, BMP 08/02/16 23:30 08/02/16 17:28 INR 1.25 Vital Signs Period Temp Pulse Resp BP Sys/Lopez Pulse Ox Last 24 Hr 97.2 F-98.2 F 76-113 14-20 84-131/55-75 96-100 S1S2 irreg.irreg. tachy ~110 on monitor lungs decreased BS at right base abd ++ascites but not tense no edema aa0x3 Imp Abd pain with hypotension started after HD 2 days ago -ascites related? -mesenteric transient ischemia? ESRD RapidAfib CHF CAD IDDM Plan CT angio r/o ischemia-HD afterwards hold AC for now-may need paracentesis pending on above coreg on hold due to hypotension Problem List - Problems (1) Abdominal pain Code(s): R10.9 - UNSPECIFIED ABDOMINAL PAIN Qualifiers: Abdominal location: epigastric Qualified Code(s): R10.13 - Epigastric pain (2) Ascites Code(s): R18.8 - OTHER ASCITES Qualifiers: Ascites type: other type (3) Atrial fibrillation Code(s): I48.91 - UNSPECIFIED ATRIAL FIBRILLATION Qualifiers: Atrial fibrillation type: persistent Qualified Code(s): I48.1 - Persistent atrial fibrillation (4) Cirrhosis Code(s): K74.60 - UNSPECIFIED CIRRHOSIS OF LIVER Qualifiers: Hepatic cirrhosis type: unspecified hepatic cirrhosis Ascites presence : with ascites Qualified Code(s): K74.60 - Unspecified cirrhosis of liver (5) Congestive heart failure Code(s): I50.9 - HEART FAILURE, UNSPECIFIED Qualifiers: Congestive heart failure type: systolic Congestive heart failure chronicity: chronic Qualified Code(s): I50.22 - Chronic systolic ( congestive) heart failure (6) Coronary artery disease Code(s): I25.10 - ATHSCL HEART DISEASE OF [place] CORONARY ARTERY W/O ANG PCTRS Qualifiers: Coronary Disease-Associated Artery/Lesion type: [place] artery [place] vs. transplanted heart: [place] heart Associated angina: with stable angina Qualified Code(s): I25.119 - Atherosclerotic heart disease of [place] coronary artery with unspecified angina pectoris (7) Diabetes mellitus Code(s): E11.9 - TYPE 2 DIABETES MELLITUS WITHOUT COMPLICATIONS Qualifiers: Diabetes mellitus type: type 1 Diabetes mellitus complication status: with kidney complications Diabetes mellitus complication detail: with chronic kidney disease Chronic kidney disease stage: on chronic dialysis Qualified Code(s): E10.22 - Type 1 diabetes mellitus with diabetic chronic kidney disease; N18.1 - Chronic kidney disease, stage 1 (8) ESRD (end stage renal disease) Code(s): N18.6 - END STAGE RENAL DISEASE (9) Hypothyroidism Code(s): E03.9 - HYPOTHYROIDISM, UNSPECIFIED Qualifiers: Hypothyroidism type: acquired Qualified Code(s): E03.9 - Hypothyroidism, unspecified (10) Ischemic dilated cardiomyopathy Code(s): I25.5 - ISCHEMIC CARDIOMYOPATHY
--- NOTE | 2016-08-03 11:28 | CON.CARD ---
Consult Consult Specialty:: Cardiology Reason for Consultation:: Cardiac evaluation - History of Present Illness Chief Complaint: Hypotension History of Present Illness: Patient is an 61 year old male with underlying history of anemia, COPD, HTN, hypercholesterolemia, diabetes mellitus, CVA, CAD S/P PCI/stent, CABG, ischemic cardiomyopathy, S/P ICD ([employer]), ESRD on HD. He complained of abdominal discomfort, nausea and vomiting and came to [facility] and was also hypotensive in the ER. Patient was given fluid bolus and was transferred to [facility]. Of note, he was advised to stop Coumadin due to INR being elevated, but it appears that he had stopped it all together and now has an INR of 1.25. He appears comfortable at this time. Denies chest pain, shortness of breath or palpitation. He complains of increased abdominal fullness as he has history of ascites. He has history of AF for which he has been on Coumadin. He has had ICD discharge last admission and had demand ischemia. He denies fever or chills. He denies paroxysmal nocturnal dyspnea or orthopnea. He denies headache or lightheadedness. Cardiology consultation was called for further evaluation. - History Source History Provided By: Patient, Medical Record Limitations to Obtaining History: No Limitations - Past Medical History PATIENT OFFICE REP: Yes: Peripheral Neuropathy Cardio/Vascular: Yes: AFIB, CAD, CHF, HTN, Hyperlipdemia Gastrointestinal: Yes: Other (cirrhosis-based on GONG likely) Renal/: Yes: Renal Failure Psych: Yes: Anxiety Endocrine: Yes: Diabetes Mellitus (IDDM), Hypothyroidism - Past Surgical History Past Surgical History: Yes: AICD (PPM), AV Fistula/Graft, CABG (3 vessel in 2009 ), Cholecystectomy (2006) - Alcohol/Substance Use Hx Alcohol Use: No History of Substance Use: reports: None - Smoking History Smoking history: Never smoked Have you smoked in the past 12 months: No Aproximately how many cigarettes per day: 0 - Social History Usual Living Arrangement: With Spouse ADL: Independent Home Medications - Allergies Allergies/Adverse Reactions: Allergies Allergy/AdvReac Type Severity Reaction Status Date / Time No Known Drug Allergies Allergy Verified 08/02/16 17:31 - Home Medications Home Medications: Ambulatory Orders Insulin Glargine,Hum.rec.anlog [Lantus (10mL VIAL) -] 12 units SQ HS 09/13/14 Levothyroxine [Synthroid -] 75 mcg PO DAILY 09/13/14 Sodium Chloride Tablet - 650 mg PO DAILY 04/27/16 Midodrine HCl 5 mg PO BID #0 04/29/16 Sevelamer Carbonate [Renvela -] 1,600 mg PO TIDCM tab 04/29/16 Amiodarone HCl [Cordarone -] 200 mg PO BID #60 tablet 07/12/16 Lactulose (Oral Use) [Cephulac -] 20 gm PO BID #60 udc 07/12/16 Oxycodone HCl/Acetaminophen [Percocet 10-325 mg Tablet] 1 each PO BID PRN #60 tablet MDD 2 07/12/16 Sucralfate [Carafate -] 2 gm PO BID #60 tablet 07/12/16 Warfarin Na [Coumadin -] 5 mg PO DAILY@1800 tablet 08/04/16 Review of Systems - Review of Systems Constitutional: denies: Chills, Fever Cardiovascular: denies: Chest Pain, Palpitations, Shortness of Breath Respiratory: denies: Cough, Hemoptysis, Orthopnea, PND, SOB Gastrointestinal: reports: Abdominal Pain. denies: Diarrhea, Melena, Nausea, Rectal Bleeding, Vomiting Neurological: denies: Dizziness, Headache, Seizure, Syncope Vital Signs: Vital Signs Temperature 97.9 F 08/03/16 08:54 Pulse Rate 113 H 08/03/16 08:54 Respiratory Rate 20 08/03/16 08:56 Blood Pressure 105/75 08/03/16 08:54 O2 Sat by Pulse Oximetry (%) 96 08/03/16 08:56 Neck: Yes: Supple Respiratory: Yes: Diminished Gastrointestinal: Yes: Normal Bowel Sounds, Ascites, Distention Cardiovascular: Yes: Pulse Irregular JVD: No Carotid Bruit: No PMI: Non-Displaced Heart Sounds: Yes: S1, S2 Murmur: Yes: Systolic Murmur, Grade 2 Edema: No - Other Data Labs, Other Data: CBC, BMP 08/02/16 23:30 INR, PTT INR 1.25 (0.82-1.09) H 08/02/16 17:35 Troponin, BNP 08/02/16 23:00 Troponin I 0.02 D Laboratory Results - last 24 hr 08/03/16 08/03/16 08/03/16 13:50 13:50 22:00 WBC 7.4 RBC 3.57 L Hgb 10.4 L Hct 32.3 L MCV 90.3 MCHC 32.2 RDW 17.0 H Plt Count 68 L MPV 9.6 Neutrophils % 82.2 Lymphocytes % 5.2 L D Monocytes % 8.9 Eosinophils % 2.9 Basophils % 0.8 Sodium 130 L Potassium 6.1 H* D Chloride 93 L Carbon Dioxide 20 L Anion Gap 17 H BUN 108 H* D Creatinine 11.2 H* D Creat Clearance w eGFR 4.66 POC Glucometer 172 Random Glucose 214 H Calcium 8.0 L Total Bilirubin 0.3 D AST 5 L D ALT 12 D Alkaline Phosphatase 79 Creatine Kinase 22 L Troponin I 0.02 Total Protein 7.1 Albumin 3.4 Atrial fibrillation Imaging - Results Chest X-ray: Report Reviewed (Small right pleural effusion) Cat Scan: Report Reviewed (Abdominal CT: Ascites) EKG: Report Reviewed Problem List - Problems (1) Abdominal pain Code(s): R10.9 - UNSPECIFIED ABDOMINAL PAIN Qualifiers: Abdominal location: epigastric Qualified Code(s): R10.13 - Epigastric pain (2) Ascites Code(s): R18.8 - OTHER ASCITES Qualifiers: Ascites type: other type Qualified Code(s): R18.8 - Other ascites (3) Atrial fibrillation Code(s): I48.91 - UNSPECIFIED ATRIAL FIBRILLATION Qualifiers: Atrial fibrillation type: persistent Qualified Code(s): I48.1 - Persistent atrial fibrillation (4) Coronary artery disease Code(s): I25.10 - ATHSCL HEART DISEASE OF [place] CORONARY ARTERY W/O ANG PCTRS Qualifiers: Coronary Disease-Associated Artery/Lesion type: [place] artery [place] vs. transplanted heart: [place] heart Associated angina: with stable angina Qualified Code(s): I25.119 - Atherosclerotic heart disease of [place] coronary artery with unspecified angina pectoris (5) ESRD (end stage renal disease) Code(s): N18.6 - END STAGE RENAL DISEASE (6) HTN (hypertension) Code(s): I10 - ESSENTIAL (PRIMARY) HYPERTENSION Qualifiers: Hypertension type: essential hypertension Qualified Code(s): I10 - Essential (primary) hypertension (7) Hypothyroidism Code(s): E03.9 - HYPOTHYROIDISM, UNSPECIFIED Qualifiers: Hypothyroidism type: acquired Qualified Code(s): E03.9 - Hypothyroidism, unspecified (8) ICD (implantable cardioverter-defibrillator) discharge Code(s): Z45.02 - ENCNTR FOR ADJUST AND MGMT OF AUTOMATIC IMPLNTBL CARD DEFIB (9) Ischemic dilated cardiomyopathy Code(s): I25.5 - ISCHEMIC CARDIOMYOPATHY (10) S/P coronary artery stent placement Code(s): Z95.5 - PRESENCE OF CORONARY ANGIOPLASTY IMPLANT AND GRAFT (11) Systolic and diastolic CHF, acute on chronic Code(s): I50.43 - ACUTE ON CHRONIC COMBINED SYSTOLIC AND DIASTOLIC HRT FAIL Assessment/Plan 1. Ascites 2. CAD S/P PCI, CABG, angina 3. Atrial fibrillation, persistent with variable ventricular response 4. ESRD on HD 5. Ischemic dilated cardiomyopathy 6. Diabetes Mellitus 7. Thrombocytopenia and anemia PLAN: 1. Patient may need paracentesis and if so will need to hold Coumadin. Consider bridging with Heparin if so, otherwise continue Coumadin. 2. HD as per renal 3. Amiodarone Carrington Woodruff MD
--- NOTE | 2016-08-03 11:38 | CONS ---
GASTROENTEROLOGY CONSULTATION DATE OF CONSULTATION: 08/03/2016 REQUESTING PHYSICIAN: Cecilia Teran MD The patient is a 61-year-old male admitted through [facility] for evaluation of abdominal pain. Patient states that he was in his usual state of health, had eaten. He had gone to dialysis, and during dialysis, he was noted to be hypotensive. He also developed upper abdominal pain, nausea, and he vomited. He described the vomitus as dark. He does state that he occasionally has dark bowel movements as well. He had an upper endoscopy July 07, 2016, with my colleague Dr. Vincent Lee, to exclude varices given his need for anticoagulation, and he was noted to have normal esophagus, bile reflux gastritis, and normal duodenum. There were no varices noted. I evaluated him in June 2016, at the time of his upper endoscopy as Cardiology wanted to start him on anticoagulation given atrial fibrillation. I also evaluated him in 2011. He did not follow up in my office at that time, but in 2011, he underwent paracentesis when he was diagnosed with ascites/renal failure, underwent paracentesis revealing segs of 1.2, total protein of 4, and albumin of 2. Cytology was unrevealing as were microbiology exams of the fluid, and I suspected at that time the patient may have had a component of chronic liver disease and that his ascites was likely multifactorial. His hepatitis B and C serologies were negative from 2010. They were negative in 2015, and I suspected the possibility of GONG cirrhosis given the fact that he denied any alcohol abuse, and I also felt that his CHF leading to diastolic dysfunction was further impacting his liver. I also felt that his kidney disease may have been contributory as well as the peritoneal fluid analysis was not suggestive of purely portal hypertensive etiology. He currently denies any shortness of breath. Denies any chest pain. Did have an upper endoscopy in November 2011, that revealed normal esophagus, some erosions in the body of the stomach, lymphangiectasia in the duodenal bulb, and there were no esophageal or gastric varices noted at that time. Colonoscopy was deferred at that time given that he had recently been diagnosed with kidney disease and was in renal failure. He has not had a colonoscopy as of yet. The workup for this admission included CBC which revealed anemia; however, he does have a baseline anemia. He had a normal white count. He has chronic thrombocytopenia. He was subtherapeutic on his Coumadin, and he was noted to be in atrial fibrillation with rapid ventricular response. He had a CT scan of the abdomen and pelvis without oral or IV contrast, that revealed moderate ascites. Currently, he states that he does still have some upper abdominal residual pain. There has been no reported gross rectal bleeding or melena. PAST MEDICAL HISTORY: Significant for hypertension, hyperlipidemia, insulin-dependent diabetes mellitus, chronic kidney disease, congestive heart failure, systolic dysfunction, pleural effusions, history of in the lungs which is not treated, suspected cirrhosis, hypothyroidism. PAST SURGICAL HISTORY: Includes AICD/permanent pacemaker placement, CABG, cholecystectomy in 2006, AV fistula/graft placement in the right arm with revision, and the CABG was 3 vessels in 2009. SOCIAL HISTORY: Patient is [place] in origin. He has been living in the [facility] for over 30 years. No history of tobacco, EtOH, intravenous drug abuse or illicit drugs. FAMILY HISTORY: There is no family history of colorectal cancer or liver disease. MEDICATIONS PRIOR TO ADMISSION: Include Synthroid, Lantus, carvedilol, Velphoro, sodium chloride tablets, Renvela, and midodrine. He denies any [id number] NSAID use. He does admit to taking oxycodone. REVIEW OF SYSTEMS: He currently denies any chest pain. He did complain of palpitations. Denies any shortness of breath. He did complain of nausea with vomiting. He described the vomiting as dark. No gross hematemesis. He denies any rectal bleeding, change in bowel habits. He does complain that he states his bowel habits look dark from time to time. Denies any lower extremity swelling. PHYSICAL EXAMINATION: General: Patient is found lying comfortably in his bed. He appeared to be in no apparent distress. Vital Signs: He was afebrile. Pulse of 109, blood pressure 100/52. HEENT: Sclerae are anicteric. Neck: Supple. Heart: Tachycardic rate with an irregular rhythm. No murmurs are appreciated. Lungs: Clear lung viera. Abdomen: The abdomen was softly distended. He had normoactive bowel sounds. He did have an umbilical hernia that was nontender and easily reducible. No hepatosplenomegaly is appreciated. No masses are palpated. He did have mild tenderness to palpation in the upper mid-abdomen. Extremities: No lower extremity edema. Rectal: Digital rectal exam: No external lesions. No masses. Scant amount of dark brown stool which is guaiac negative. LABORATORY EVALUATION: White blood count 6.8, hemoglobin 9.2, hematocrit 29.3, platelets of 80. INR of 1.25. He is noted to be occult blood negative on August 02; specimen sent through the ER. Sodium 132, potassium 5.0, chloride 98, bicarbonate 19, BUN of 98, creatinine 9.8, AST of 9, ALT of 11, alkaline phosphatase 83, total bilirubin 0.3 with an albumin of 4.1, ammonia 63.6 RADIOLOGY REPORTS: CT scan of the abdomen and pelvis as noted in the history of present illness. IMPRESSION: A 61-year-old male with transient and improving upper abdominal pain. Given that this occurred during a hypotensive episode during dialysis (which the patient states has occurred during multiple dialysis episodes), the possibility of a transient ischemic episode will need to be considered in the differential. The pain was focal in the upper abdomen and not diffuse. He does have ascites in the pelvis, however, not an appreciable amount throughout his entire abdomen, and a spontaneous bacterial peritonitis would be less likely given his lack of leukocytosis and focal pain. He has also had a recent upper endoscopy that was unrevealing in terms of upper abdominal pathology such as varices or peptic ulcer disease. I, therefore, advise the followin. CT angiogram to evaluate his mesenteric vasculature. 2. If unrevealing and still with some pain, a diagnostic paracentesis could be attempted as he is subtherapeutic on Coumadin. He is going to be started on heparin per Dr. Teran, and she will coordinate with Nephrology regarding timing of the CT angiogram. 3. Other recommendations will be made pending the above. I would continue a clear-liquid diet for now. We will follow patient with you. Thank you for this consultative opportunity. ODALIS QUARLES DO CD/[id number]
--- NOTE | 2016-08-03 13:57 | EKG ---
Test Reason : Blood Pressure : / mmHG Vent. Rate : 090 BPM Atrial Rate : 078 BPM P-R Int : 000 ms QRS Dur : 170 ms QT Int : 430 ms P-R-T Axes : 000 270 066 degrees QTc Int : 526 ms POOR DATA QUALITY, INTERPRETATION MAY BE ADVERSELY AFFECTED ATRIAL FIBRILLATION RIGHT BUNDLE BRANCH BLOCK , PLUS RIGHT VENTRICULAR HYPERTROPHY ANTEROSEPTAL INFARCT (CITED ON OR BEFORE 21-AUG-2014) WHEN COMPARED WITH ECG OF 28-APR-2016 10:20, T WAVE INVERSION NO LONGER EVIDENT IN INFERIOR LEADS T WAVE INVERSION NO LONGER EVIDENT IN LATERAL LEADS QT HAS LENGTHENED Confirmed by MD SISI, ORSANNA ([id number]) on 08/03/2016 1:57:14 PM Referred By: MD INIGUEZ Confirmed By:ROSANNA LAIRD MD
[2016-08-03 14:23] LABS: BASOPHIL 0.8 % (0-2.0); EOSINOPHIL 2.9 % (0-4.5); MCH 29.1 pg (25.7-33.7); MCHC 32.2 g/dl (32.0-35.9); MEAN CELL VOLUME 90.3 fl (80-96); MEAN PLT VOLUME 9.6 fl (7.5-11.1); NEUTROPHILS 82.2 % (42.8-82.8); PLATELET COUNT 68 K/MM3 (134-434); WHITE BLOOD COUNT 7.4 K/mm3 (4.0-10.0)
[2016-08-03 14:45] LABS: ALBUMIN 3.4 g/dl (3.4-5.0)
[2016-08-03 14:52] LABS: BILIRUBIN,TOTAL 0.3 mg/dL (0.2-1.0); TOT PROT 7.1 g/dl (6.4-8.2); TROPONIN I 0.02 ng/ml (0.00-0.05)
[2016-08-03 15:13] LABS: CREATININE 11.2 mg/dL (0.7-1.3)
--- NOTE | 2016-08-03 18:01 | PN ---
Progress Note (short form) - Note Progress Note: RENAL 61 YEAR OLD WITH LV DYSF ESRD DM ISSUE REMAINS OF WEIGHT GAINS HYPOTENSION ASCITES BUILD UP IN WITH ABD PAIN THAT HAPPENED AT HD VOMITED THIS AM NOW VERY HUNGRY STORY IS NOT OF PAIN AFTER MEALS THAT WOULD BE MORE SUGGESTIVE OF MESENTERIC ISCHEMIA SEEN AT THE END OF HD UF FOR 1 HR HD FOR 2.5 HR TOTAL VOL REMOVED 3.5 KG BP STABLE GOT MIDODRINE 10 MG PRE HD WILL ADVANCE DIET CT REVIEWED IF TOLERATES THEN DC IN AM POST UF TREATMENT PARACENTESIS NOT NEEDED WILL SWITCH TO NOCTURNAL SLOW DIALYSIS SHOULD DO MUCH BETTER WITH THAT CASE D/W PMD AND SON WHO IS ALSO HIS HCP
[2016-08-03] MEDS ORDERED: WARFARIN NA 5 MG TABLET (UD) PO ONE (18:26)
[2016-08-04] MEDS: LEVOTHYROXINE NA 75 MCG TABLET (FP) PO SCH (06:06)
[2016-08-04] MEDS: SEVELAMER CARBONATE 800 MG TAB (FP) PO SCH ×3 (07:42→17:40)
[2016-08-04] MEDS: oxyCODONE HCL 5 MG TABLET PO PRN ×2 (07:42→17:40)
--- NOTE | 2016-08-04 09:08 | PN ---
Progress Note (short form) - Note Progress Note: Eating well, without abdominal pain. BP at baseline. CTA reviewed PAD but no obstruction or ischemia noted Vital Signs Period Temp Pulse Resp BP Sys/Lopez Pulse Ox Last 24 Hr 96.5 F-99.1 F 77-109 18-20 75-117/45-72 97 S1S2 irreg.irreg. HR has been in 80s mostly lungs decreased BS at right base abd ++ascites but not tense no edema aa0x3 Imp Abd pain resolved, posssibly due to hypoperfusion with low BPs and ascites ESRD RapidAfib CHF CAD IDDM Plan if hemodinamically stable after HD may dc home and f/up as outpt on Sunday stop coreg resume warfarin will check INR on Sunday Problem List - Problems (1) Abdominal pain Code(s): R10.9 - UNSPECIFIED ABDOMINAL PAIN Qualifiers: Qualified Code(s): R10.13 - Epigastric pain (2) Ascites Code(s): R18.8 - OTHER ASCITES Qualifiers: Qualified Code(s): R18.8 - Other ascites (3) Atrial fibrillation Code(s): I48.91 - UNSPECIFIED ATRIAL FIBRILLATION Qualifiers: Qualified Code(s): I48.1 - Persistent atrial fibrillation (4) Cirrhosis Code(s): K74.60 - UNSPECIFIED CIRRHOSIS OF LIVER Qualifiers: Qualified Code(s): K74.60 - Unspecified cirrhosis of liver (5) Congestive heart failure Code(s): I50.9 - HEART FAILURE, UNSPECIFIED Qualifiers: Qualified Code(s): I50.22 - Chronic systolic (congestive) heart failure (6) Coronary artery disease Code(s): I25.10 - ATHSCL HEART DISEASE OF [place] CORONARY ARTERY W/O ANG PCTRS Qualifiers: Qualified Code(s): I25.119 - Atherosclerotic heart disease of [place] coronary artery with unspecified angina pectoris (7) Diabetes mellitus Code(s): E11.9 - TYPE 2 DIABETES MELLITUS WITHOUT COMPLICATIONS Qualifiers: Qualified Code(s): E10.22 - Type 1 diabetes mellitus with diabetic chronic kidney disease; N18.1 - Chronic kidney disease, stage 1 (8) ESRD (end stage renal disease) Code(s): N18.6 - END STAGE RENAL DISEASE (9) Hypothyroidism Code(s): E03.9 - HYPOTHYROIDISM, UNSPECIFIED Qualifiers: Qualified Code(s): E03.9 - Hypothyroidism, unspecified (10) Ischemic dilated cardiomyopathy Code(s): I25.5 - ISCHEMIC CARDIOMYOPATHY
--- NOTE | 2016-08-04 09:34 | PN ---
Progress Note, Physician History of Present Illness: Abd pain resolved, tolerating diet, CTA neg for stenosis. - Current Medication List Current Medications: Active Medications Amiodarone HCl (Cordarone -) 200 mg PO BID [facility] Last Admin: 08/03/16 21:54 Dose: 200 mg Epoetin [place] (Epogen -) 5,000 units IVPUSH ONCE ONE Stop: 08/04/16 18:04 Insulin Aspart (Novolog Vial Sliding Scale -) 1 vial SQ ACHS PRN; Protocol PRN Reason: ELEVATED BLOOD SUGAR Lactulose (Cephulac (Oral Use)) 20 gm PO BID [facility] Last Admin: 08/03/16 21:53 Dose: 20 gm Levothyroxine Sodium (Synthroid -) 75 mcg PO DAILY@0700 [facility] Last Admin: 08/04/16 06:06 Dose: 75 mcg Midodrine (Proamatine -) 5 mg PO BID-MID [facility] Last Admin: 08/03/16 18:27 Dose: Not Given Oxycodone HCl (Roxicodone -) 5 mg PO Q6H PRN PRN Reason: PAIN Last Admin: 08/04/16 07:42 Dose: 5 mg Sevelamer Carbonate (Renvela -) 1,600 mg PO TIDCM [facility] Last Admin: 08/04/16 07:42 Dose: 1,600 mg Sodium Chloride (Sodium Chloride Tablet -) 1 gm PO DAILY [facility] Last Admin: 08/03/16 10:17 Dose: 1 gm Sucralfate (Carafate -) 2 gm PO BID [facility] Last Admin: 08/03/16 21:53 Dose: 2 gm Warfarin Sodium (Coumadin -) 5 mg PO DAILY@1800 [facility] - Objective Vital Signs: Vital Signs Temperature 99.1 F 08/04/16 01:52 Pulse Rate 83 08/04/16 06:00 Respiratory Rate 20 08/04/16 06:00 Blood Pressure 117/58 08/04/16 06:00 O2 Sat by Pulse Oximetry (%) 97 08/03/16 20:26 Constitutional: Yes: No Distress, Calm, Thin Neck: Yes: Supple Cardiovascular: Yes: Pulse Irregular Respiratory: Yes: Regular, Diminished Gastrointestinal: Yes: Soft, Ascites, Hypoactive Bowel Sounds Edema: No Labs: CBC, BMP 08/03/16 13:50 08/03/16 13:50 INR, PTT INR 1.25 (0.82-1.09) H 08/02/16 17:35 - ....Imaging Chest X-ray: Report Reviewed (Cardiomegaly, small right effusion) Cat Scan: Report Reviewed (CT: shows mod ascites and splenomegaly, CTA shows diffuse atherosclerotic disease celiac and SMA vs vasculitis) EKG: Report Reviewed (Tele: Rate-controlled afib) Problem List - Problems (1) Ascites Code(s): R18.8 - OTHER ASCITES Qualifiers: Ascites type: other type Qualified Code(s): R18.8 - Other ascites (2) Atrial fibrillation Code(s): I48.91 - UNSPECIFIED ATRIAL FIBRILLATION Qualifiers: Atrial fibrillation type: persistent Qualified Code(s): I48.1 - Persistent atrial fibrillation (3) Cirrhosis Code(s): K74.60 - UNSPECIFIED CIRRHOSIS OF LIVER Qualifiers: Hepatic cirrhosis type: unspecified hepatic cirrhosis Ascites presence : with ascites Qualified Code(s): K74.60 - Unspecified cirrhosis of liver (4) Coronary artery disease Code(s): I25.10 - ATHSCL HEART DISEASE OF [place] CORONARY ARTERY W/O ANG PCTRS Qualifiers: Coronary Disease-Associated Artery/Lesion type: [place] artery [place] vs. transplanted heart: [place] heart Associated angina: with stable angina Qualified Code(s): I25.119 - Atherosclerotic heart disease of [place] coronary artery with unspecified angina pectoris (5) Diabetes mellitus Code(s): E11.9 - TYPE 2 DIABETES MELLITUS WITHOUT COMPLICATIONS Qualifiers: Diabetes mellitus type: type 1 Diabetes mellitus complication status: with kidney complications Diabetes mellitus complication detail: with chronic kidney disease Chronic kidney disease stage: on chronic dialysis Qualified Code(s): E10.22 - Type 1 diabetes mellitus with diabetic chronic kidney disease; N18.1 - Chronic kidney disease, stage 1 (6) ESRD (end stage renal disease) Code(s): N18.6 - END STAGE RENAL DISEASE (7) Hypothyroidism Code(s): E03.9 - HYPOTHYROIDISM, UNSPECIFIED Qualifiers: Hypothyroidism type: acquired Qualified Code(s): E03.9 - Hypothyroidism, unspecified (8) ICD (implantable cardioverter-defibrillator) discharge Code(s): Z45.02 - ENCNTR FOR ADJUST AND MGMT OF AUTOMATIC IMPLNTBL CARD DEFIB (9) Ischemic dilated cardiomyopathy Code(s): I25.5 - ISCHEMIC CARDIOMYOPATHY (10) S/P coronary artery stent placement Code(s): Z95.5 - PRESENCE OF CORONARY ANGIOPLASTY IMPLANT AND GRAFT (11) Ventricular tachycardia Code(s): I47.2 - VENTRICULAR TACHYCARDIA (12) S/P CABG (coronary artery bypass graft) Code(s): Z95.1 - PRESENCE OF AORTOCORONARY BYPASS GRAFT (13) Anemia Code(s): D64.9 - ANEMIA, UNSPECIFIED Qualifiers: Other causes of anemia: chronic disease, kidney (14) Thrombocytopenia Code(s): D69.6 - THROMBOCYTOPENIA, UNSPECIFIED Assessment/Plan 1. Ascites, resolved abd pain possibly due to hypoperfusion with low BPs 2. CAD S/P PCI, CABG, angina 3. Atrial fibrillation, persistent with variable ventricular response 4. ESRD on HD 5. Ischemic dilated cardiomyopathy, VT s/p ICD 6. Diabetes Mellitus 7. Thrombocytopenia 8. Hypothyroidism 9. Anemia of chronic kidney disease PLAN: 1. Volume removal via HD 2. Carvedilol d/reba and midodrine initiated given chronic hypotension 3. Decrease amio 200 qd, coumadin per INR, paracentesis not warranted, check TSH on amio 3. D/c planning after slow HD with f/u in office
[2016-08-04] MEDS ORDERED: PT OWN MED DRAWER 7, Y5N ONE (09:41)
[2016-08-04] MEDS: MIDODRINE HCL 5 MG TABLET PO SCH ×2 (09:46→17:40)
[2016-08-04] MEDS: AMIODARONE HCL 200 MG TABLET (FP) PO SCH ×3 (09:46→09:50)
[2016-08-04] MEDS: SUCRALFATE 1 GM TABLET (FP) PO SCH (09:47)
[2016-08-04] MEDS: SODIUM CHLORIDE 1 GM TABLET PO SCH (09:47)
[2016-08-04] MEDS: LACTULOSE 20 GM/30 ML UDC (FOR ORAL USE ONLY) PO SCH (09:47)
[2016-08-04] MEDS ORDERED: AMIODARONE HCL 200 MG TABLET (FP) PO SCH (10:00)
[2016-08-04] MEDS ORDERED: MIDODRINE HCL 5 MG TABLET PO ONE (15:45)
[2016-08-04] MEDS ORDERED: EPOETIN ALFA 3,000 UNIT/1 ML ML IVPUSH ONE (16:00)
[2016-08-04] MEDS ORDERED: EPOETIN ALFA 2,000 UNITS/1 ML VIAL IVPUSH ONE (16:00)
[2016-08-04 16:39] LABS: BASOPHIL 0.6 % (0-2.0); EOSINOPHIL 4.5 % (0-4.5); MCH 29.1 pg (25.7-33.7); MCHC 32.7 g/dl (32.0-35.9); MEAN CELL VOLUME 89.1 fl (80-96); MEAN PLT VOLUME 9.5 fl (7.5-11.1); NEUTROPHILS 77.2 % (42.8-82.8); PLATELET COUNT 84 K/MM3 (134-434); RDW 16.9 % (11.9-15.9); WHITE BLOOD COUNT 5.3 K/mm3 (4.0-10.0)
[2016-08-04 16:54] LABS: INR 1.19 (0.82-1.09); PROTHROMBIN TIME (PATIENT) 13.1 SEC (9.98-11.88)
[2016-08-04 17:06] LABS: ALBUMIN 3.7 g/dl (3.4-5.0); BILIRUBIN,TOTAL 0.3 mg/dL (0.2-1.0); CALCIUM 8.2 mg/dL (8.5-10.1); CREATININE 5.5 mg/dL (0.7-1.3); TOT PROT 8.3 g/dl (6.4-8.2)
[2016-08-04 17:11] VITALS: BP 117/65; PULSE 92
--- NOTE | 2016-08-04 17:29 | PN ---
GI Progress Note Subjective: GI NOte: CTA reveals what appear to be noncritical SMA and NATALIE narrowing. These may prove critical however during hypotensive episodes such as he describes during outpatient dialyses recently. He has not been having any problems with the past few dialyses. l - Objective Vital Signs: Vital Signs Temperature 97.7 F 08/04/16 10:00 Pulse Rate 92 H 08/04/16 17:00 Respiratory Rate 18 08/04/16 17:00 Blood Pressure 117/65 08/04/16 17:00 O2 Sat by Pulse Oximetry (%) 95 08/04/16 09:00 CBC, BMP 08/04/16 15:00 08/04/16 15:00 CBC,CMP WBC 5.3 K/mm3 (4.0-10.0) 08/04/16 15:00 RBC 3.56 M/mm3 (4.00-5.60) L 08/04/16 15:00 Hgb 10.3 GM/dL (11.7-16.9) L 08/04/16 15:00 Hct 31.7 % (35.4-49) L 08/04/16 15:00 MCV 89.1 fl (80-96) 08/04/16 15:00 MCHC 32.7 g/dl (32.0-35.9) 08/04/16 15:00 RDW 16.9 % (11.9-15.9) H 08/04/16 15:00 Plt Count 84 K/MM3 (134-434) L D 08/04/16 15:00 MPV 9.5 fl (7.5-11.1) 08/04/16 15:00 Neutrophils % 77.2 % (42.8-82.8) 08/04/16 15:00 Lymphocytes % 6.6 % (8-40) L D 08/04/16 15:00 Monocytes % 11.1 % (3.8-10.2) H 08/04/16 15:00 Eosinophils % 4.5 % (0-4.5) 08/04/16 15:00 Basophils % 0.6 % (0-2.0) 08/04/16 15:00 Platelet Estimate Decreased (NORMAL) 08/02/16 23:30 Platelet Comment No clumping noted 08/02/16 23:30 Platelet Comment No clotting detected 08/02/16 23:30 Sodium 139 mmol/L (136-145) 08/04/16 15:00 Potassium 3.3 mmol/L (3.5-5.1) L D 08/04/16 15:00 Chloride 99 mmol/L (98-107) 08/04/16 15:00 Carbon Dioxide 25 mmol/L (21-32) D 08/04/16 15:00 Anion Gap 15 (8-16) 08/04/16 15:00 BUN 51 mg/dL (7-18) H D 08/04/16 15:00 Creatinine 5.5 mg/dL (0.7-1.3) H D 08/04/16 15:00 Creat Clearance w eGFR 10.59 (>60) 08/04/16 15:00 POC Glucometer 199 UNITS (()) 08/04/16 11:53 Random Glucose 187 mg/dL (74-106) H 08/04/16 15:00 Lactic Acid 1.267 mmol/L (0.4-2.0) 08/02/16 17:35 Calcium 8.2 mg/dL (8.5-10.1) L 08/04/16 15:00 Magnesium 2.5 mg/dL (1.8-2.4) H 08/02/16 17:28 Total Bilirubin 0.3 mg/dL (0.2-1.0) 08/04/16 15:00 AST 6 U/L (15-37) L 08/04/16 15:00 ALT 13 U/L (12-78) 08/04/16 15:00 Alkaline Phosphatase 96 U/L (45-117) D 08/04/16 15:00 Ammonia 63.63 umol/L (11-32) H 08/02/16 17:35 Creatine Kinase 22 IU/L (39-308) L 08/03/16 13:50 Troponin I 0.02 ng/ml (0.00-0.05) 08/03/16 13:50 B-Natriuretic Peptide 53447.50 pg/ml (5-125) H 08/02/16 17:28 Total Protein 8.3 g/dl (6.4-8.2) H 08/04/16 15:00 Albumin 3.7 g/dl (3.4-5.0) 08/04/16 15:00 Lipase 41 U/L (22-51) 08/02/16 17:28 Constitutional: Calm Gastrointestinal Inspection: Yes: Distention ...Auscultate: Yes: Normoactive Bowel Sounds ...Palpate: Yes: Soft, Other (nontender) Labs: CBC, BMP 08/04/16 15:00 08/04/16 15:00 INR, PTT INR 1.19 (0.82-1.09) H D 08/04/16 06:00 Assessment/Plan The etiology of Ramon's pain is still unclear. He denies intestinal anginal symptoms with eating. The episodes of pain that he describes are not always associated with dialyses. He has not had a paracentesis since 2011 and I agree with my associate Dr Clark that should the pain recur then this should be considered. I discussed this with Dr Teran and the patient with his son present.
[2016-08-04 17:48] VITALS: TEMP 97.2
[2016-08-04] MEDS ORDERED: WARFARIN NA 5 MG TABLET (UD) PO SCH (18:00)
[2016-08-05 16:10] LABS: HEP B SURFACE AB Non Reactive (.)
== END 2016-08-04 19:24 | disposition home or self-care (01) | DRG 312 ==
LOC: FER 17:01 → UNDOADMIN 21:45 → J4W 21:45
PROVIDERS: ADMIT Internal Medicine; ATTEND Internal Medicine
PROC: 5A1D60Z (ICD-10-PCS; principal; 2016-08-03)
DX: I95.3 Hypotension of hemodialysis (principal); N18.6 End stage renal disease; I50.43 Acute on chronic combined systolic (congestive) and diastolic (congestive) heart failure; R18.8 Other ascites; I48.1 Persistent atrial fibrillation; I13.2 Hypertensive heart and chronic kidney disease with heart failure and with stage 5 chronic kidney disease, or end stage renal disease; G62.89 Other specified polyneuropathies; E11.9 Type 2 diabetes mellitus without complications; E03.9 Hypothyroidism, unspecified; K74.60 Unspecified cirrhosis of liver; I25.5 Ischemic cardiomyopathy; E78.00 Pure hypercholesterolemia, unspecified; F41.8 Other specified anxiety disorders; D69.6 Thrombocytopenia, unspecified; I25.118 Atherosclerotic heart disease of native coronary artery with other forms of angina pectoris; D63.1 Anemia in chronic kidney disease; Z99.2 Dependence on renal dialysis; Z95.810 Presence of automatic (implantable) cardiac defibrillator; Z86.73 Personal history of transient ischemic attack (TIA), and cerebral infarction without residual deficits; Z95.5 Presence of coronary angioplasty implant and graft; Z95.1 Presence of aortocoronary bypass graft
CPT/HCPCS: 36415; 71010-TC; 74174-TC; 74176-TC; 80053; 82140; 82272; 82550; 83605; 83690; 83735; 83880; 84443; 84484; 85025; 85027; 85610; 86704; 86706; 86708; 86803; 86850; 86900; 86901; 87040; 87340; 93005; 99285-25; J0885; Q9967

== ENCOUNTER 2016-12-19 16:31 | Inpatient (IN) | payer OTHER ==
--- NOTE | 2016-12-19 16:46 | PDOC ---
History of Present Illness <Janeth Lucas - Last Filed: 12/19/16 18:48> - General History Source: Patient Exam Limitations: No Limitations - History of Present Illness Initial Comments: 61 yo M history COPD, CAD s/p CABG, CVA with no residual, CHF, DM, HD (, , Sat), HTN, HL presents with cp/SOB x1 day. He states that he feels weak in both of his legs, has been having difficulty walking. Denies headache, leg pain, back pain. No recent trauma. His last dialysis was on Sunday, he is due for it later this evening. He states he feels like he needs dialysis. <Olena Deal - Last Filed: 12/19/16 19:02> - General Chief Complaint: Weakness Stated Complaint: WEAKNESS Time Seen by Provider: 12/19/16 16:34 Past History <Janeth Lucas - Last Filed: 12/19/16 18:48> - Past Medical History Anemia: Yes Asthma: Yes (HX BRONCHITIS, COPD) Cancer: No Cardiac Disorders: Yes (S/P open heart SX c/ bypass, stent placement) CVA: Yes (no residual) COPD: No CHF: Yes (CAD) Dementia: No Diabetes: Yes (DIABETES TYPE 2) Dialysis: Yes ([facility]) GI Disorders: Yes (reflux) Disorders: Yes (ESRD-DIALYSIS ES,TH,SAT) HTN: Yes Hypercholesterolemia: Yes Liver Disease: No Suicide Attempt (Hx): No Seizures: No Thyroid Disease: No - Surgical History Abdominal Surgery: Yes Appendectomy: No Cardiac Surgery: Yes (Stent placement, Open heart SX, BYpass SX) Cholecystectomy: Yes Lung Surgery: No Neurologic Surgery: No Orthopedic Surgery: No - Immunization History Td Vaccination: Yes Immunization Up to Date: Yes - Psycho/Social/Smoking Cessation Hx Anxiety: Yes Suicidal Ideation: No Smoking Status: No Smoking History: Never smoked Years of Tobacco Use: 0 Have you smoked in the past 12 months: No Number of Cigarettes Smoked Daily: 0 Cigars Per Day: 0 Hx Alcohol Use: No Drug/Substance Use Hx: No Substance Use Type: None Hx Substance Use Treatment: No <Olena Deal - Last Filed: 12/19/16 19:02> - Past Medical History Allergies/Adverse Reactions: Allergies Allergy/AdvReac Type Severity Reaction Status Date / Time No Known Drug Allergies Allergy Verified 12/19/16 16:52 Home Medications: Ambulatory Orders Levothyroxine [Synthroid -] 75 mcg PO DAILY 09/13/14 Sevelamer Carbonate [Renvela -] 1,600 mg PO TIDCM tab 04/29/16 Amiodarone HCl [Cordarone -] 200 mg PO BID #60 tablet 07/12/16 Oxycodone HCl/Acetaminophen [Percocet 10-325 mg Tablet] 1 each PO BID PRN #60 tablet MDD 2 07/12/16 Warfarin Na [Coumadin -] 5 mg PO DAILY@1800 tablet 08/04/16 Insulin Regular [NOVOLIN R VIAL *IVPUSH / ER / ICU Only*] 0 units SQ TID Sucralfate [Carafate -] 1 gm PO BID 12/19/16 Review of Systems - Review of Systems Able to Perform ROS?: Yes Comments:: GENERAL/CONSTITUTIONAL: No fever or chills. +BLE weakness. HEAD, EYES, EARS, NOSE AND THROAT: No change in vision. No ear pain or discharge. No sore throat. CARDIOVASCULAR: No chest pain or shortness of breath. RESPIRATORY: No cough, wheezing, or hemoptysis. GASTROINTESTINAL: No nausea, vomiting, diarrhea or constipation. GENITOURINARY: No dysuria, frequency, or change in urination. MUSCULOSKELETAL: No joint or muscle swelling or pain. No neck or back pain. SKIN: No rash NEUROLOGIC: No headache, vertigo, loss of consciousness, or change in sensation. ENDOCRINE: No increased thirst. No abnormal weight change. HEMATOLOGIC/LYMPHATIC: No anemia, easy bleeding, or history of blood clots. ALLERGIC/IMMUNOLOGIC: No hives or skin allergy. <Olena Deal - Last Filed: 12/19/16 19:02> *Physical Exam - Vital Signs Last Vital Signs Temp Pulse Resp BP Pulse Ox 97.5 F L 101 H 18 112/64 100 12/19/16 16:46 12/19/16 16:46 12/19/16 16:46 12/19/16 16:46 12/19/16 16:46 <Janeth Lucas - Last Filed: 12/19/16 18:48> - Physical Exam Comments: GENERAL: Awake, alert, and fully oriented, in no acute distress HEAD: No signs of trauma EYES: PERRLA, EOMI, sclera anicteric, conjunctiva clear ENT: Auricles normal inspection, hearing grossly normal, nares patent, oropharynx clear without exudates. Moist mucosa NECK: Normal ROM, supple, no lymphadenopathy, JVD, or masses LUNGS: Breath sounds equal, clear to auscultation bilaterally. No wheezes, and no crackles HEART: Regular rate and rhythm, normal S1 and S2, no murmurs, rubs or gallops ABDOMEN: Soft, nontender, normoactive bowel sounds. No guarding, no rebound. No masses EXTREMITIES: R upper arm with AVF, +thrill. Remainder of extremities with normal range of motion. +Trace edema to B/L feet. +Hyperpigmentation to B/L lower legs. +Peripheral pulses with cap refill < 2s. No clubbing or cyanosis. No cords, erythema, or tenderness NEUROLOGICAL: Cranial nerves II through XII grossly intact. Normal speech. Sensation intact. SKIN: Warm, Dry, normal turgor, no rashes or lesions noted. <Olena Deal - Last Filed: 12/19/16 19:02> Heart Score/ECG Review - History History: Highly suspicious - Electrocardiogram EKG: Non specific repolarization disturbance - Age Age: 45-65 - Risk Factors Risk Factors Heart Score: Yes Hx Hypercholesterolemia, Yes Hx Hypertension, Yes Hx Diabetes Based on the list above the patient has:: >/=3 risk factors or Hx atherosclerotic disease - Troponin Troponin: </= normal limit - Score Heart Score - Total: 6 - ECG Impressions Comment:: EKG read 16:41- Sinus tach, RBBB, widened QRS compared with prior EKG from Jul 2016 <Olena Deal - Last Filed: 12/19/16 19:02> ED Treatment Course - LABORATORY CBC & Chemistry Diagram: 12/19/16 17:10 12/19/16 17:10 - ADDITIONAL ORDERS Additional order review: 12/19/16 17:10 RBC 4.31 D MCV 90.8 MCHC 31.2 L RDW 18.2 H MPV 8.6 Neutrophils % 89.2 H Lymphocytes % 3.4 L D Monocytes % 6.3 Eosinophils % 0.6 D Basophils % 0.5 - RADIOLOGY Radiograph Interpretation: 12/19/16 18:47 EXAM: RAD/CHEST X-RAY PORTABLE Interpreted by Dr. Arnaldo Nuno IMPRESSION: Since 08/02/2016, there is a persistent right effusion with large heart, sternal sutures, double lead pacemaker and prominent knob. There is no sign of failure. An element of atelectasis or infiltrate at the left base may be present. The bones and soft tissues appear intact. There are right arm clips. Correlation and follow-up recommended. - Medications Given in the ED: ED Medications Discontinued Medications Generic Name Dose Route Start Last Admin Trade Name Dalton PRN Reason Stop Dose Admin Calcium Gluconate 1,000 mg 12/19/16 16:51 12/19/16 17:15 Calcium Gluconate 10% - IVPUSH 12/19/16 16:52 1,000 mg ONCE ONE Administration Sodium Bicarbonate 50 meq 12/19/16 16:51 12/19/16 17:15 Sodium Bicarbonate 8.4% - IVPUSH 12/19/16 16:52 50 meq ONCE ONE Administration <Janeth Lucas - Last Filed: 12/19/16 18:48> - LABORATORY CBC & Chemistry Diagram: 12/19/16 17:10 12/19/16 17:10 <Olena Deal - Last Filed: 12/19/16 19:02> Medical Decision Making - Medical Decision Making 12/19/16 17:[address] Teagan Morillo 12/19/16 17:[address] Morillo. Case was discussed. 12/19/16 18:[address] Rena Sutton 12/19/16 18:[address] Sutton on his cellphone. No response. Left voicemail. 12/19/16 18:[address] Gomes to her cellphone. No response. Left voicemail. 12/19/16 18:[address] Sutton and Dr. Gomes's service. Immediate response by Dr. Sutton. Case was discussed. 12/19/16 18:[address] Lei. Case was discussed. <Janeth Lucas - Last Filed: 12/19/16 18:48> - Critical Care Time Total Critical Care Time (minutes): 35 Critical Care Statement: The care of this patient involved high complexity decision making to prevent further life threatening deterioration of the patient 's condition and/or to evalute & treat vital organ system(s) failure or risk of failure. - Medical Decision Making 12/19/16 18:[address] Morillo- K is 7. I gave calcium gluconate and bicarb on patient arrival, as QRS appeared slightly wider than prior. I have now added insulin 5 units IVP as well as 1 amp of D50. She is contacting dialysis unit. I am awaiting callback from Dr. Sutton for admission. 12/19/16 18:45 Patient vomiting, now bradycardic to 40s. RN at the bedside to give the insulin and D50. I have discussed with Dr. Lei of ICU, patient approved, they will make a bed [facility]. 12/19/16 18:51 HR 60s after insulin and D50. Awaiting transport to ICU. 12/19/16 19:02 Rpt EKG after insulin/D50 shows narrower QRS. <Olena Deal - Last Filed: 12/19/16 19:02> *DC/Admit/Observation/Transfer - Attestations Scribe Attestion: 12/19/16 18:47 Documentation prepared by Janeth Lucas, acting as medical social worker for Olena Deal MD. <Janeth Lucas - Last Filed: 12/19/16 18:48> - Discharge Dispostion Admit: Yes <Olena Deal - Last Filed: 12/19/16 19:02> Diagnosis at time of Disposition: Hyperkalemia - Discharge Dispostion Condition at time of disposition: Critical - Referrals Referrals: Mandeep Sutton MD [Primary Care Provider] -
[2016-12-19] MEDS ORDERED: SODIUM BICARBONATE 8.4% 50 MEQ/50 ML DISP.SYRIN IVPUSH ONE (16:51)
[2016-12-19] MEDS ORDERED: CALCIUM GLUCONATE 10% - 1,000 MG/10 ML VIAL IVPUSH ONE (16:51)
[2016-12-19] MEDS ORDERED: CALCIUM GLUCONATE 10% - 1,000 MG/10 ML VIAL ONE (17:16)
[2016-12-19] MEDS ORDERED: SODIUM BICARBONATE 8.4% - 50 ML ONE (17:16)
[2016-12-19 17:17] LABS: BASOPHIL 0.5 % (0-2.0); EOSINOPHIL 0.6 % (0-4.5); MCH 28.3 pg (25.7-33.7); MCHC 31.2 g/dl (32.0-35.9); MEAN CELL VOLUME 90.8 fl (80-96); MEAN PLT VOLUME 8.6 fl (7.5-11.1); NEUTROPHILS 89.2 % (42.8-82.8); PLATELET COUNT 85 K/MM3 (134-434); RDW 18.2 % (11.9-15.9)
[2016-12-19] MEDS ORDERED: morphine CARPU-JECT 2 MG/1 ML DISP.SYRIN IVPUSH ONE (17:38)
[2016-12-19] MEDS ORDERED: morphine CARPU-JECT 2 MG/1 ML DISP.SYRIN ONE (17:44)
[2016-12-19 17:58] LABS: INR 1.52 (0.82-1.09); PROTHROMBIN TIME (PATIENT) 16.9 SEC (9.98-11.88)
[2016-12-19 18:08] LABS: ALBUMIN 3.4 g/dl (3.4-5.0); BILIRUBIN,TOTAL 0.5 mg/dL (0.2-1.0); CALCIUM 8.1 mg/dL (8.5-10.1); TOT PROT 7.8 g/dl (6.4-8.2)
[2016-12-19 18:14] LABS: TROPONIN I 0.03 ng/ml (0.00-0.05)
[2016-12-19 18:18] LABS: CREATININE 10.7 mg/dL (0.7-1.3)
[2016-12-19] MEDS ORDERED: ALBUTEROL SO4 0.083% IH SOL 2.5 MG/3 ML VIAL.NEB. NEB ONE ×2 (18:20→18:59)
[2016-12-19] MEDS ORDERED: DEXTROSE 50%-WATER - 25 GM/50 ML VIAL IVPUSH ONE (18:21)
[2016-12-19] MEDS ORDERED: INSULIN REGULAR HUMAN 100 UNITS/ML *VIAL IVPUSH ONE (18:21)
[2016-12-19] MEDS ORDERED: ONDANSETRON 4 MG/2 ML VIAL IVPUSH ONE (18:33)
[2016-12-19] MEDS ORDERED: DEXTROSE 50%-WATER 50 ML DISP.SYRIN ONE (18:40)
[2016-12-19] MEDS ORDERED: ONDANSETRON 4 MG/2 ML VIAL ONE (18:40)
[2016-12-19] MEDS ORDERED: INSULIN REGULAR HUMAN 100 UNITS/ML *VIAL ONE (18:41)
--- NOTE | 2016-12-19 19:15 | CON.NEP ---
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 Cardio/Vascular: Yes: AFIB, CAD, CHF, HTN, Hyperlipdemia Pulmonary: Yes: Other (h/o MARIAN in lungs-not treated) Gastrointestinal: Yes: Other (cirrhosis-based on GONG likely) Renal/: Yes: Renal Failure Psych: Yes: Anxiety Endocrine: Yes: Diabetes Mellitus (IDDM), Hypothyroidism - Past Surgical History Past Surgical History: Yes: AICD (PPM), AV Fistula/Graft, CABG (3 vessel in 2009 ), Cholecystectomy (2006) - Alcohol/Substance Use Hx Alcohol Use: No History of Substance Use: reports: None - Smoking History Smoking history: Never smoked Have you smoked in the past 12 months: No Aproximately how many cigarettes per day: 0 - Social History Usual Living Arrangement: With Spouse ADL: Independent Place of : Other ([place]) History of Recent Travel: No Home Medications - Allergies Allergies/Adverse Reactions: Allergies Allergy/AdvReac Type Severity Reaction Status Date / Time No Known Drug Allergies Allergy Verified 12/19/16 16:52 - Home Medications Home Medications: Ambulatory Orders Levothyroxine [Synthroid -] 75 mcg PO DAILY 09/13/14 Sevelamer Carbonate [Renvela -] 1,600 mg PO TIDCM tab 04/29/16 Amiodarone HCl [Cordarone -] 200 mg PO BID #60 tablet 07/12/16 Oxycodone HCl/Acetaminophen [Percocet 10-325 mg Tablet] 1 each PO BID PRN #60 tablet MDD 2 07/12/16 Warfarin Na [Coumadin -] 5 mg PO DAILY@1800 tablet 08/04/16 Insulin Regular [NOVOLIN R VIAL *IVPUSH / ER / ICU Only*] 0 units SQ TID Sucralfate [Carafate -] 1 gm PO BID 12/19/16 Review of Systems Unable to obtain ROS, reason: weakness Nephrology Consult - Height Height: 5 ft 6 in - Weight Weight: 163 lb 2.273 oz - BMI Body Mass Index (BMI): 26.3 - Lab Results CBC,BMP: CBC, BMP 12/19/16 17:10 12/19/16 17:10 Anion Gap: Anion Gap Anion Gap 18 (8-16) H 12/19/16 17:10 - Imaging Chest X-ray: Image Reviewed - Physical Examination Vital Signs: Vital Signs Temperature 97.5 F L 12/19/16 16:46 Pulse Rate 71 12/19/16 17:46 Respiratory Rate 17 12/19/16 17:46 Blood Pressure 105/63 12/19/16 17:46 O2 Sat by Pulse Oximetry (%) 100 12/19/16 17:46 Constitutional: Yes: Other (weak) Gastrointestinal: Yes: Ascites Edema: LUE: 1+, RUE: 1+ Assessment/Plan 61 with LV dysf on po midodrine pre HD on nocturmal HD ESRD EF 20% Symptoms all related to hyperkalemia HD arranged for now 2 hr k1 ca2.5 target 2 kg Will redialyze in am Home meds reviewed REsume renagel 3 TID with meals On coumadin
[2016-12-19] MEDS ORDERED: MIDODRINE HCL 5 MG TABLET PO STA (20:03)
[2016-12-19 23:40] VITALS: BMI 27.1
[2016-12-19] MEDS ORDERED: ACETAMINOPHEN 325 MG TABLET (FP) PO ONE (23:45)
[2016-12-19] MEDS ORDERED: oxyCODONE HCL 5 MG TABLET PO ONE (23:45)
[2016-12-19] MEDS ORDERED: OXYCODONE/APAP 5/325MG COMBO TABLET PO ONE (23:46)
--- NOTE | 2016-12-19 23:57 | CONSULT ---
Consult Consult Specialty:: Pulmonary/Critical Care Reason for Consultation:: Hyperkalemia - History of Present Illness Chief Complaint: "I felt weak." History of Present Illness: This is a 61 year old gentleman with a past medical history of COPD, CAD s/p CABG, CVA without residual deficit, CHF, DM, ESRD on iHD (//Sun), HTN, HLD who presented to the ED today with SOB and chest pain for one day associated with weakness. He last received HD on Sunday and was scheduled to receive iHD again today. He reports difficulty walking this afternoon and thus presented to the ED. In the ED he was found to be hyperkalemic with K 7.3 and ECG changes. Other labs were notable for Na 127 and Cr 10.7. He was given insulin and D50 initially. While in the ED he later had an episode of emesis and became bradycardic to the 40s with a wide complex. He was given calcium, bicarb, insulin and D50. Nephrology was consulted and he received 2 hours of emergent dialysis in the suite. He is now being admitted to the ICU for further management. On arrival he reports improvement in his weakness and he denies chest pain, shortness of breath, nausea, palpitations or abdominal pain. He is HD stable. 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 Cardio/Vascular: Yes: AFIB, CAD, CHF, HTN, Hyperlipdemia Pulmonary: Yes: Other (h/o MARIAN in lungs-not treated) Gastrointestinal: Yes: Other (cirrhosis-based on GONG likely) Renal/: Yes: Renal Failure, Hemodialysis Psych: Yes: Anxiety Endocrine: Yes: Diabetes Mellitus (IDDM), Hypothyroidism - Past Surgical History Past Surgical History: Yes: AICD (PPM), AV Fistula/Graft, CABG (3 vessel in 2009 ), Cholecystectomy (2006) - Alcohol/Substance Use Hx Alcohol Use: No History of Substance Use: reports: None - Smoking History Smoking history: Never smoked Have you smoked in the past 12 months: No Aproximately how many cigarettes per day: 0 - Social History Usual Living Arrangement: With Spouse ADL: Independent History of Recent Travel: No Home Medications - Allergies Allergies/Adverse Reactions: Allergies Allergy/AdvReac Type Severity Reaction Status Date / Time No Known Drug Allergies Allergy Verified 12/19/16 16:52 - Home Medications Home Medications: Ambulatory Orders Levothyroxine [Synthroid -] 75 mcg PO DAILY 09/13/14 Sevelamer Carbonate [Renvela -] 1,600 mg PO TIDCM tab 04/29/16 Amiodarone HCl [Cordarone -] 200 mg PO BID #60 tablet 07/12/16 Oxycodone HCl/Acetaminophen [Percocet 10-325 mg Tablet] 1 each PO BID PRN #60 tablet MDD 2 07/12/16 Warfarin Na [Coumadin -] 5 mg PO DAILY@1800 tablet 08/04/16 Insulin Regular [NOVOLIN R VIAL *IVPUSH / ER / ICU Only*] 0 units SQ TID Sucralfate [Carafate -] 1 gm PO BID 12/19/16 Family Disease History - Family Disease History Family History: Unremarkable (non-contrib) Review of Systems - Review of Systems Constitutional: reports: No Symptoms. denies: Chills, Diaphoresis, Fever, Lethargy, Loss of Appetite, Malaise, Night Sweats, Unintentional Wgt. Loss, Weakness, Other Eyes: reports: No Symptoms. denies: Blind Spots, Blurred Vision, Double Vision , Eye Pain, Floaters, Photophobia, Recent Change in Vision, Other HENT: reports: No Symptoms. denies: Difficult Swallowing, Ear Discharge, Ear Pain, Epistaxis, Gingival Bleeding, Hearing Loss, Mouth Swelling, Nasal Congestion, Ocular Prosthesis, Throat Pain, Toothache, Ringing in Ears, Other Neck: reports: No Symptoms. denies: Decreased ROM, Lumps, Pain on Movement, Stiffness, Swollen Glands, Tenderness, Other Cardiovascular: reports: No Symptoms. denies: Chest Pain, Edema, Palpitations, Shortness of Breath, Other Respiratory: reports: No Symptoms. denies: Cough, Exercise Intolerance, Hemoptysis, Orthopnea, PND, Snoring, SOB, SOB on Exertion, Wheezing, Other Gastrointestinal: reports: No Symptoms. denies: Abdominal Pain, Bloating, Constipation, Diarrhea, Dysphagia, Indigestion, Melena, Nausea, Rectal Bleeding , Vomiting, Vomiting Blood, Other Genitourinary: reports: Other (anuric) Neurological: reports: No Symptoms Physical Exam Vital Signs: Vital Signs Temperature 97.7 F 12/19/16 23:00 Pulse Rate 101 H 12/19/16 23:00 Respiratory Rate 14 12/19/16 23:00 Blood Pressure 91/61 12/19/16 23:00 O2 Sat by Pulse Oximetry (%) 100 12/19/16 23:00 Home Medication List Medication Instructions Recorded Confirmed Type Levothyroxine [Synthroid -] 75 mcg PO DAILY 09/13/14 12/19/16 History Insulin Regular [NOVOLIN R VIAL 0 units SQ TID 12/19/16 12/19/16 History *IVPUSH / ER / ICU Only*] Sucralfate [Carafate -] 1 gm PO BID 12/19/16 12/19/16 History Active Medications Generic Name Dose Route Start Last Admin Trade Name Freq PRN Reason Stop Dose Admin Midodrine 5 mg 12/20/16 10:00 Proamatine - PO BID-MID RACHEL Constitutional: Yes: No Distress, Calm Eyes: Yes: EOM Intact, PERRL HENT: Yes: Atraumatic, Normocephalic Neck: Yes: Supple Cardiovascular: Yes: Regular Rate and Rhythm, S1, S2, Other (RUE AV fistual. + bruit/+thrill) Respiratory: Yes: WNL Gastrointestinal: Yes: Normal Bowel Sounds, Soft (mildly, distended) Renal/: Yes: Anuria Extremities: Yes: WNL Edema: No Neurological: Yes: Alert, Oriented ...Motor Strength: WNL Labs: CBC WBC 9.0 K/mm3 (4.0-10.0) D 12/19/16 17:10 RBC 4.31 M/mm3 (4.00-5.60) D 12/19/16 17:10 Hgb 12.2 GM/dL (11.7-16.9) D 12/19/16 17:10 Hct 39.2 % (35.4-49) D 12/19/16 17:10 MCV 90.8 fl (80-96) 12/19/16 17:10 MCHC 31.2 g/dl (32.0-35.9) L 12/19/16 17:10 RDW 18.2 % (11.9-15.9) H 12/19/16 17:10 Plt Count 85 K/MM3 (134-434) L 12/19/16 17:10 MPV 8.6 fl (7.5-11.1) 12/19/16 17:10 Neutrophils % 89.2 % (42.8-82.8) H 12/19/16 17:10 Lymphocytes % 3.4 % (8-40) L D 12/19/16 17:10 Monocytes % 6.3 % (3.8-10.2) 12/19/16 17:10 Eosinophils % 0.6 % (0-4.5) D 12/19/16 17:10 Basophils % 0.5 % (0-2.0) 12/19/16 17:10 CMP Sodium 127 mmol/L (136-145) L 12/19/16 17:10 Potassium 7.3 mmol/L (3.5-5.1) H* D 12/19/16 17:10 Chloride 90 mmol/L (98-107) L 12/19/16 17:10 Carbon Dioxide 19 mmol/L (21-32) L D 12/19/16 17:10 Anion Gap 18 (8-16) H 12/19/16 17:10 BUN 94 mg/dL (7-18) H D 12/19/16 17:10 Creatinine 10.7 mg/dL (0.7-1.3) H* D 12/19/16 17:10 Creat Clearance w eGFR 4.91 (>60) 12/19/16 17:10 Random Glucose 398 mg/dL (74-106) H* D 12/19/16 17:10 Calcium 8.1 mg/dL (8.5-10.1) L 12/19/16 17:10 Total Bilirubin 0.5 mg/dL (0.2-1.0) D 12/19/16 17:10 AST 12 U/L (15-37) L D 12/19/16 17:10 ALT 22 U/L (12-78) D 12/19/16 17:10 Alkaline Phosphatase 115 U/L (45-117) 12/19/16 17:10 Creatine Kinase 52 IU/L (39-308) 12/19/16 17:10 Troponin I 0.03 ng/ml (0.00-0.05) D 12/19/16 17:10 Total Protein 7.8 g/dl (6.4-8.2) 06/13/17 17:10 Albumin 3.4 g/dl (3.4-5.0) 12/19/16 17:10 Imaging - Results Chest X-ray: Report Reviewed EKG: Pending Problem List - Problems (1) Hyperkalemia Code(s): E87.5 - HYPERKALEMIA (2) Coronary artery disease Code(s): I25.10 - ATHSCL HEART DISEASE OF [place] CORONARY ARTERY W/O ANG PCTRS Qualifiers: Coronary Disease-Associated Artery/Lesion type: [place] artery [place] vs. transplanted heart: [place] heart Associated angina: with stable angina Qualified Code(s): I25.119 - Atherosclerotic heart disease of [place] coronary artery with unspecified angina pectoris (3) ESRD (end stage renal disease) Code(s): N18.6 - END STAGE RENAL DISEASE (4) Diabetes mellitus Code(s): E11.9 - TYPE 2 DIABETES MELLITUS WITHOUT COMPLICATIONS Qualifiers: Diabetes mellitus type: type 1 Diabetes mellitus complication status: with kidney complications Diabetes mellitus complication detail: with chronic kidney disease Chronic kidney disease stage: on chronic dialysis Qualified Code(s): E10.22 - Type 1 diabetes mellitus with diabetic chronic kidney disease; N18.1 - Chronic kidney disease, stage 1 Assessment/Plan This is a 61-year-old male with a past medical history of COPD, CAD s/p CABG, CVA, CHF, DM, ESRD on iHD, HTN who presented to the ED with complaints of SOB, CP and weakness in the setting of hyperkalemia now s/p emergent HD session being admitted to ICU for further monitoring. -Nephrology following -Continuous telemetry -ECG -Repeat complete metabolic panel -Planning for additional iHD tomorrow per nephrology -Renal diet -Venodynes for DVT ppx FULL CODE RAVI Alexander Total CC Time: 25 mins
[2016-12-20] MEDS ORDERED: ACETAMINOPHEN 325 MG TABLET (FP) ONE (00:20)
[2016-12-20] MEDS ORDERED: INSULIN SLIDING SCALE (NOVOLOG) 1 VIAL SQ SCH ×2 (00:30→07:00)
[2016-12-20] MEDS ORDERED: INSULIN (NOVOLOG) ASPART 100 UNITS/ML 10ML VIAL SQ ONE (00:46)
[2016-12-20 00:55] LABS: MCH 28.4 pg (25.7-33.7); MCHC 31.5 g/dl (32.0-35.9); MEAN CELL VOLUME 90.2 fl (80-96); MEAN PLT VOLUME 8.9 fl (7.5-11.1); PLATELET COUNT 72 K/MM3 (134-434); RDW 17.7 % (11.9-15.9); WHITE BLOOD COUNT 5.8 K/mm3 (4.0-10.0)
[2016-12-20 01:10] LABS: INR 1.63 (0.82-1.09); PROTHROMBIN TIME (PATIENT) 18.1 SEC (9.98-11.88)
[2016-12-20 01:21] LABS: CALCIUM 8.4 mg/dL (8.5-10.1); MAGNESIUM 2.1 mg/dL (1.8-2.4); PHOSPHOROUS 6.1 mg/dL (2.5-4.9)
[2016-12-20 01:27] LABS: COCKROFT - GAULT 11.01
[2016-12-20 01:29] LABS: CREATININE 7.5 mg/dL (0.7-1.3)
[2016-12-20 01:46] LABS: TROPONIN I 0.03 ng/ml (0.00-0.05)
[2016-12-20] MEDS: MIDODRINE HCL 5 MG TABLET PO SCH ×3 (06:18→17:39)
[2016-12-20] MEDS: LEVOTHYROXINE NA 75 MCG TABLET (FP) PO SCH (06:20)
--- NOTE | 2016-12-20 07:14 | PN ---
Physical Exam: SUBJECTIVE: Patient seen and examined receiving hemodilaysis. feels better since admission. c/o pain in his feet and his hands, with some numbness around his lips and face. denies chest pain, palpitations, abdominal pain, dysuria, diarrhea, sob, cough, headache, fever. pt had potatoes and orange juice yesterday. OBJECTIVE: Vital Signs Period Temp Pulse Resp BP Sys/Lopez Pulse Ox Last 24 Hr 97.7 F-98.8 F 52-105 14-21 83-115/35-69 98-100 GENERAL: The patient is awake, alert, and fully oriented, in no acute distress. HEAD: Normal with no signs of trauma. EYES: PERRL, extraocular movements intact, sclera anicteric, conjunctiva clear. ENT: oropharynx clear without exudates, moist mucous membranes. NECK: Trachea midline, full range of motion, supple. LUNGS: CTAB HEART: Regular rate and rhythm, S1, S2 without murmur, rub or gallop. ABDOMEN: Soft, nontender, nondistended, normoactive bowel sounds, no guarding, EXTREMITIES: 2+ radial/DP pulses, warm, well-perfused, no edema. 1x1cm scab on left heel - no discharge, no surrounding erythema, no tenderness. handgrip 4/5 b /l. 3/5 in hip extension b/l. NEUROLOGICAL: Cranial nerves II through XII grossly intact. Normal speech PSYCH: Normal mood, normal affect. Laboratory Results - last 24 hr 12/20/16 12/20/16 12/20/16 00:19 00:30 00:30 WBC 5.8 D RBC 3.78 L Hgb 10.7 L D Hct 34.1 L MCV 90.2 MCHC 31.5 L RDW 17.7 H Plt Count 72 L MPV 8.9 INR 1.63 H PTT (Actin FS) Sodium Potassium Chloride Carbon Dioxide Anion Gap BUN Creatinine POC Glucometer [phone] Random Glucose Calcium Phosphorus Magnesium Troponin I 12/20/16 12/20/16 12/20/16 00:30 00:30 00:30 WBC RBC Hgb Hct MCV MCHC RDW Plt Count MPV INR PTT (Actin FS) 31.9 D Sodium 137 Potassium 4.8 D Chloride 94 L Carbon Dioxide 27 D Anion Gap 16 BUN 62 H D Creatinine 7.5 H* D POC Glucometer Random Glucose 249 H D Calcium 8.4 L Phosphorus 6.1 H Magnesium 2.1 Troponin I 0.03 Cancelled 12/20/16 06:50 WBC RBC Hgb Hct MCV MCHC RDW Plt Count MPV INR PTT (Actin FS) Sodium Potassium Chloride Carbon Dioxide Anion Gap BUN Creatinine POC Glucometer [phone] Random Glucose Calcium Phosphorus Magnesium Troponin I Active Medications Generic Name Dose Route Start Last Admin Trade Name Freq PRN Reason Stop Dose Admin Diphenhydramine HCl 25 mg 12/20/16 07:15 12/20/16 07:13 Benadryl Injection - IVPUSH 12/20/16 07:16 25 mg ONCE ONE Administration Levothyroxine Sodium 75 mcg 12/20/16 07:00 12/20/16 06:20 Synthroid - PO 75 mcg DAILY@0700 [facility] Administration Midodrine 5 mg 12/20/16 10:00 12/20/16 06:18 Proamatine - PO 5 mg BID-MID [facility] Administration Sevelamer Carbonate 1,600 mg 12/20/16 08:00 Renvela - PO TIDCM [facility] Active Medications Acetaminophen (Tylenol -) 650 mg PO Q6H PRN PRN Reason: PAIN 6-10 Last Admin: 12/20/16 16:10 Dose: 650 mg Amiodarone HCl (Cordarone -) 200 mg PO BID [facility] Last Admin: 12/20/16 09:50 Dose: 200 mg Insulin Aspart (Novolog Vial Sliding Scale -) 1 vial SQ ACHS [facility] PRN Reason: Protocol Last Admin: 12/20/16 16:59 Dose: 4 units Insulin Detemir (Levemir Vial) 12 units SQ DAILY [facility] Last Admin: 12/20/16 09:49 Dose: 12 units Levothyroxine Sodium (Synthroid -) 75 mcg PO DAILY@0700 [facility] Last Admin: 12/20/16 06:20 Dose: 75 mcg Midodrine (Proamatine -) 5 mg PO BID-MID [facility] Last Admin: 12/20/16 17:39 Dose: 5 mg Oxycodone HCl (Roxicodone -) 10 mg PO DAILY PRN PRN Reason: PAIN 6-10 Last Admin: 12/20/16 16:11 Dose: 10 mg Sevelamer Carbonate (Renvela -) 1,600 mg PO TIDCM [facility] Last Admin: 12/20/16 17:38 Dose: 1,600 mg Sucralfate (Carafate -) 1 gm PO BIDAC [facility] Last Admin: 12/20/16 16:12 Dose: 1 gm Warfarin Sodium (Coumadin -) 5 mg PO DAILY@1800 [facility] Last Admin: 12/20/16 17:38 Dose: 5 mg ASSESSMENT/PLAN: 61 yr old man with COPD, CAD s/p CABG and AICD placement, CVA(w/o residual deficits), systolic CHF, DM, ESRD on HD, presented to ED with profound weakness and difficulty walking admitted to ICU for symptomatic hyperkalemia requiring urgent hemodialysis. Renal symptomatic hyperkalemia - likely caused by dietary indiscretions - received dialysis yesterday and today with improvement - renvela 1600mg po TIDCM [facility] - captain of guards consulted for diet training Cardiovascular Afib - currently in sinus amiodarone 200mg po BID Midodrine 5 mg po BID-MID anticoag with wardarin 5 mg po daily Dermatology - heel pads Musculoskeletal - physical therapy for gait evaluation - encourage OOB Endocrine DM II NISS and BGM NISS, levemir 15units subq daily Hypothyroid levothyroxine 75mcg BID GI carafate 1gm po BID Dvt; on warfarin Diet: renal diet Dispo: hyperkalemia resolved, patient can be mointored on Med/surg floor Visit type - Emergency Visit Emergency Visit: No - New Patient This patient is new to me today: Yes Date on this admission: 12/20/16 - Critical Care Critical Care patient: Yes Total Critical Care Time (in minutes): 37 Critical Care Statement: The care of this patient involved high complexity decision making to prevent further life threatening deterioration of the patient 's condition and/or to evalute & treat vital organ system(s) failure or risk of failure.
[2016-12-20] MEDS: SEVELAMER CARBONATE 800 MG TAB (FP) PO SCH ×3 (08:16→17:38)
[2016-12-20 08:28] LABS: MCHC 32.2 g/dl (32.0-35.9); PLATELET COUNT 76 K/MM3 (134-434); RDW 17.7 % (11.9-15.9); WHITE BLOOD COUNT 5.7 K/mm3 (4.0-10.0)
[2016-12-20] MEDS ORDERED: OXYCODONE/APAP 5/325MG COMBO TABLET PO PRN (08:46)
--- NOTE | 2016-12-20 08:53 | HP ---
Admitting History and Physical - Primary Care Physician PCP: Cecilia Teran - Admission Chief Complaint: weakness History of Present Illness: came in with c/o profound weakness and nearsyncopal/syncopal episode at home. found to have potassium over 7. last HD was sunday night, did have some potatoes since, denies major dietary non compliance. was emergently dialyzed last night and again this am. 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: Peripheral Neuropathy Cardiovascular: Yes: AFIB, CAD, CHF, HTN, Hyperlipdemia Pulmonary: Yes: Other (h/o MARIAN in lungs-not treated) Gastrointestinal: Yes: Other (cirrhosis-based on GONG likely) Renal/: Yes: Renal Failure, Hemodialysis Heme/Onc: Yes: Anemia Psych: Yes: Anxiety Endocrine: Yes: Diabetes Mellitus (IDDM), Hypothyroidism - Past Surgical History Past Surgical History: Yes: AICD (), AV Fistula/Graft, CABG (3 vessel in 2009 ), Cholecystectomy (2006) - Smoking History Smoking history: Never smoked Have you smoked in the past 12 months: No Aproximately how many cigarettes per day: 0 - Alcohol/Substance Use Hx Alcohol Use: No History of Substance Use: reports: None - Social History ADL: Independent History of Recent Travel: No Home Medications - Allergies Allergies/Adverse Reactions: Allergies Allergy/AdvReac Type Severity Reaction Status Date / Time No Known Drug Allergies Allergy Verified 12/19/16 16:52 - Home Medications Home Medications: Ambulatory Orders Levothyroxine [Synthroid -] 75 mcg PO DAILY 09/13/14 Sevelamer Carbonate [Renvela -] 1,600 mg PO TIDCM tab 04/29/16 Amiodarone HCl [Cordarone -] 200 mg PO BID #60 tablet 07/12/16 Oxycodone HCl/Acetaminophen [Percocet 10-325 mg Tablet] 1 each PO BID PRN #60 tablet MDD 2 07/12/16 Warfarin Na [Coumadin -] 5 mg PO DAILY@1800 tablet 08/04/16 Insulin Regular [NOVOLIN R VIAL *IVPUSH / ER / ICU Only*] 0 units SQ TID Sucralfate [Carafate -] 1 gm PO BID 12/19/16 Review of Systems - Review of Systems Constitutional: reports: Other (felt very cold yesterday) HENT: reports: No Symptoms Neck: reports: No Symptoms Cardiovascular: reports: No Symptoms Respiratory: reports: No Symptoms Gastrointestinal: reports: No Symptoms Genitourinary: reports: No Symptoms Musculoskeletal: reports: No Symptoms Integumentary: reports: No Symptoms Hematology/Lymphatic: reports: No Symptoms Psychiatric: reports: No Symptoms Physical Examination Vital Signs: Vital Signs Temperature 18 F L 12/20/16 08:20 Pulse Rate 98 H 12/20/16 08:20 Respiratory Rate 98 H 12/20/16 08:20 Blood Pressure 104/71 12/20/16 08:20 O2 Sat by Pulse Oximetry (%) 100 12/19/16 23:00 Constitutional: Yes: No Distress, Calm Eyes: Yes: Conjunctiva Clear, EOM Intact HENT: Yes: Normocephalic Neck: Yes: Trachea Midline Cardiovascular: Yes: Regular Rate and Rhythm Respiratory: Yes: CTA Bilaterally Gastrointestinal: Yes: Normal Bowel Sounds, Soft Edema: No Peripheral Pulses WNL: Yes Neurological: Yes: WNL Labs: 12/20/16 07:45 Abnormal Lab Results 12/19/16 12/19/16 12/19/16 17:10 17:10 17:10 RBC Hgb Hct MCHC 31.2 L RDW 18.2 H Plt Count 85 L Neutrophils % 89.2 H Lymphocytes % 3.4 L D INR 1.52 H Sodium 127 L Potassium 7.3 H* D Chloride 90 L Carbon Dioxide 19 L D Anion Gap 18 H BUN 94 H D Creatinine 10.7 H* D Random Glucose 398 H* D Calcium 8.1 L Phosphorus AST 12 L D 12/20/16 12/20/16 12/20/16 00:30 00:30 00:30 RBC 3.78 L Hgb 10.7 L D Hct 34.1 L MCHC 31.5 L RDW 17.7 H Plt Count 72 L Neutrophils % Lymphocytes % INR 1.63 H Sodium Potassium Chloride 94 L Carbon Dioxide Anion Gap BUN 62 H D Creatinine 7.5 H* D Random Glucose 249 H D Calcium 8.4 L Phosphorus 6.1 H AST 12/20/16 07:45 RBC 3.85 L Hgb 11.2 L Hct 34.7 L MCHC RDW 17.7 H Plt Count 76 L Neutrophils % Lymphocytes % INR Sodium Potassium Chloride Carbon Dioxide Anion Gap BUN Creatinine Random Glucose Calcium Phosphorus AST Problem List - Problems (1) Coronary artery disease Code(s): I25.10 - ATHSCL HEART DISEASE OF [place] CORONARY ARTERY W/O ANG PCTRS Qualifiers: Coronary Disease-Associated Artery/Lesion type: [place] artery [place] vs. transplanted heart: [place] heart Associated angina: without angina Qualified Code(s): I25.10 - Atherosclerotic heart disease of [place] coronary artery without angina pectoris (2) Diabetes mellitus Code(s): E11.9 - TYPE 2 DIABETES MELLITUS WITHOUT COMPLICATIONS Qualifiers: Diabetes mellitus type: type 1 Diabetes mellitus complication status: with kidney complications Diabetes mellitus complication detail: with chronic kidney disease Chronic kidney disease stage: on chronic dialysis Qualified Code(s): E10.22 - Type 1 diabetes mellitus with diabetic chronic kidney disease; N18.1 - Chronic kidney disease, stage 1 (3) Hyperkalemia Code(s): E87.5 - HYPERKALEMIA (4) Hypothyroidism Code(s): E03.9 - HYPOTHYROIDISM, UNSPECIFIED Qualifiers: Hypothyroidism type: acquired Qualified Code(s): E03.9 - Hypothyroidism, unspecified (5) ICD (implantable cardioverter-defibrillator) discharge Code(s): Z45.02 - ENCNTR FOR ADJUST AND MGMT OF AUTOMATIC IMPLNTBL CARD DEFIB (6) Ischemic dilated cardiomyopathy Code(s): I25.5 - ISCHEMIC CARDIOMYOPATHY (7) Ascites Code(s): R18.8 - OTHER ASCITES Qualifiers: Ascites type: other type Qualified Code(s): R18.8 - Other ascites (8) Atrial fibrillation Code(s): I48.91 - UNSPECIFIED ATRIAL FIBRILLATION Qualifiers: Atrial fibrillation type: persistent Qualified Code(s): I48.1 - Persistent atrial fibrillation (9) Cirrhosis Code(s): K74.60 - UNSPECIFIED CIRRHOSIS OF LIVER Qualifiers: Hepatic cirrhosis type: unspecified hepatic cirrhosis Ascites presence : with ascites Qualified Code(s): K74.60 - Unspecified cirrhosis of liver (10) ESRD (end stage renal disease) Code(s): N18.6 - END STAGE RENAL DISEASE (11) S/P CABG (coronary artery bypass graft) Code(s): Z95.1 - PRESENCE OF AORTOCORONARY BYPASS GRAFT Assessment/Plan dialyze PT resume home medications
[2016-12-20 08:54] LABS: COCKROFT - GAULT 17.21; CREATININE 4.8 mg/dL (0.7-1.3); PHOSPHOROUS 3.6 mg/dL (2.5-4.9)
[2016-12-20 08:58] LABS: CALCIUM 8.4 mg/dL (8.5-10.1); MAGNESIUM 2.1 mg/dL (1.8-2.4)
[2016-12-20] MEDS ORDERED: INSULIN SLIDING SCALE (NOVOLOG) 1 VIAL SQ PRN (08:58)
[2016-12-20 09:27] LABS: INR 1.51 (0.82-1.09); PROTHROMBIN TIME (PATIENT) 16.8 SEC (9.98-11.88)
[2016-12-20] MEDS ORDERED: ACETAMINOPHEN 325 MG TABLET (FP) PO PRN (09:31)
--- NOTE | 2016-12-20 09:48 | PN ---
Progress Note (short form) - Note Progress Note: RENAL DIALYZED EMERGENTLY LAST NIGHT FOR HYPERKALEMIA K 3.8 THIS AM BEING DIALYZED NOW HIPS 20 3 HR K2 CA2.5 [facility] 3 KG GOT MIDODRINE PRE HD BACK ON HIS REGULAR MEDS TRANSFER TO FLOOR PT RAJNI
[2016-12-20] MEDS: AMIODARONE HCL 200 MG TABLET (FP) PO SCH ×2 (09:50→21:31)
[2016-12-20] MEDS: oxyCODONE HCL 5 MG TABLET PO PRN ×2 (09:52→16:11)
[2016-12-20] MEDS ORDERED: INSULIN DETEMIR 100 UNITS/ML MDV SQ SCH (10:00)
--- NOTE | 2016-12-20 11:26 | PN ---
Teaching Attending Note Name of Resident: Rudy Hahn ATTENDING PHYSICIAN STATEMENT I saw and evaluated the patient. I reviewed the resident's note and discussed the case with the resident. I agree with the resident's findings and plan as documented. SUBJECTIVE: Pt seen and examined in the ICU. Feels improved but still with leg weakness and right heel pain. No chest pain or shortness of breath. OBJECTIVE: Last Vital Signs Temp Pulse Resp BP Pulse Ox 18 F L 95 H 14 116/45 97 12/20/16 08:20 12/20/16 10:01 12/20/16 10:00 12/20/16 10:00 12/20/16 10:01 Intake & Output 12/17/16 12/18/16 12/19/16 12/20/16 23:59 23:59 23:59 23:59 Intake Total 300 300 Output Total 0 Balance 300 300 Weight 168 lb 3 oz 168 lb 3 oz Gen: NAD at rest Heart: RRR Lung: decreased breath sounds at the bases Abd: soft, nontender Ext: no edema, right heel pressure ulcer CBC, BMP 12/20/16 07:45 12/20/16 07:45 Active Medications Acetaminophen (Tylenol -) 650 mg PO DAILY PRN PRN Reason: PAIN 6-10 Last Admin: 12/20/16 09:53 Dose: 650 mg Amiodarone HCl (Cordarone -) 200 mg PO BID [facility] Last Admin: 12/20/16 09:50 Dose: 200 mg Insulin Aspart (Novolog Vial Sliding Scale -) 1 vial SQ ACHS [facility] PRN Reason: Protocol Insulin Detemir (Levemir Vial) 12 units SQ DAILY [facility] Last Admin: 12/20/16 09:49 Dose: 12 units Levothyroxine Sodium (Synthroid -) 75 mcg PO DAILY@0700 [facility] Last Admin: 12/20/16 06:20 Dose: 75 mcg Midodrine (Proamatine -) 5 mg PO BID-MID [facility] Last Admin: 12/20/16 09:50 Dose: Not Given Oxycodone HCl (Roxicodone -) 10 mg PO DAILY PRN PRN Reason: PAIN 6-10 Last Admin: 12/20/16 09:52 Dose: 10 mg Sevelamer Carbonate (Renvela -) 1,600 mg PO TIDCM [facility] Last Admin: 12/20/16 08:16 Dose: 1,600 mg Sucralfate (Carafate -) 1 gm PO BIDAC RACHEL Warfarin Sodium (Coumadin -) 5 mg PO DAILY@1800 [facility] ASSESSMENT AND PLAN: Hyperkalemia requiring urgent HD ESRD on HD CAD s/p CABG Atrial Fibrillation COPD HTN DM h/o CVA LV Systolic Dysfunction Pulmonary HTN - HD per renal - monitor lytes - heel pad - renal diet, will need food service associate education - rate controlled - continue anticoagulation - DVT prophylaxis - can monitor on floor
[2016-12-20] MEDS: INSULIN SLIDING SCALE (NOVOLOG) 1 VIAL SQ SCH ×3 (11:28→21:31)
--- NOTE | 2016-12-20 13:05 | EKG ---
Test Reason : Blood Pressure : / mmHG Vent. Rate : 096 BPM Atrial Rate : 096 BPM P-R Int : 258 ms QRS Dur : 162 ms QT Int : 444 ms P-R-T Axes : 070 -89 -82 degrees QTc Int : 560 ms SINUS RHYTHM WITH 1ST DEGREE A-V BLOCK LEFT AXIS DEVIATION RIGHT BUNDLE BRANCH BLOCK ANTEROSEPTAL INFARCT (CITED ON OR BEFORE 21-AUG-2014) T WAVE ABNORMALITY, CONSIDER INFEROLATERAL ISCHEMIA ABNORMAL ECG WHEN COMPARED WITH ECG OF 19-DEC-2016 18:51, SIGNIFICANT CHANGES HAVE OCCURRED Confirmed by ANN REYEZ MD ([id number]) on 12/20/2016 1:04:41 PM Referred By: Confirmed By:ANN REYEZ MD
[2016-12-20] MEDS: ACETAMINOPHEN 325 MG TABLET (FP) PO PRN (16:10)
[2016-12-20] MEDS: SUCRALFATE 1 GM TABLET (FP) PO SCH (16:12)
[2016-12-20] MEDS: WARFARIN NA 5 MG TABLET (UD) PO SCH (17:38)
[2016-12-20] MEDS ORDERED: PT OWN MED DRAWER 7, Y5N ONE ×2 (17:57→20:13)
[2016-12-21] MEDS: ACETAMINOPHEN 325 MG TABLET (FP) PO PRN (02:40)
[2016-12-21] MEDS: oxyCODONE HCL 5 MG TABLET PO PRN ×4 (02:41→19:36)
[2016-12-21] MEDS ORDERED: PT OWN MED DRAWER 7, Y5N ONE ×2 (06:34→08:46)
[2016-12-21] MEDS: SUCRALFATE 1 GM TABLET (FP) PO SCH ×2 (06:38→17:30)
[2016-12-21] MEDS: LEVOTHYROXINE NA 75 MCG TABLET (FP) PO SCH (06:38)
[2016-12-21 06:39] LABS: BASOPHIL 0.5 % (0-2.0); EOSINOPHIL 2.8 % (0-4.5); MCH 29.1 pg (25.7-33.7); MCHC 31.8 g/dl (32.0-35.9); MEAN CELL VOLUME 91.4 fl (80-96); MEAN PLT VOLUME 9.1 fl (7.5-11.1); NEUTROPHILS 78.7 % (42.8-82.8); PLATELET COUNT 87 K/MM3 (134-434); RDW 18.1 % (11.9-15.9); WHITE BLOOD COUNT 6.5 K/mm3 (4.0-10.0)
[2016-12-21] MEDS: INSULIN SLIDING SCALE (NOVOLOG) 1 VIAL SQ SCH ×4 (06:39→21:22)
--- NOTE | 2016-12-21 07:08 | PN ---
Physical Exam: SUBJECTIVE: Patient seen and examined. c/o pain in his legs, this is chronic pain that he always has at home which usually resolves with oxycodone also c/o constipation, last BM several days ago has good appetite, denies chest pain, palpitations, headache, chest pain, paresthesias. OBJECTIVE: Vital Signs Period Temp Pulse Resp BP Sys/Lopez Pulse Ox Last 24 Hr 18 F-98.4 F 90-113 14-98 80-116/43-71 97-97 EYES: PERRL, extraocular movements intact, sclera anicteric, conjunctiva clear. ENT: oropharynx clear without exudates, moist mucous membranes. LUNGS: CTAB HEART: Regular rate and rhythm, S1, S2 without murmur, rub or gallop. ABDOMEN: Soft, nontender, nondistended, normoactive bowel sounds, no guarding, EXTREMITIES: right arm with palpable thrill, 2+ radial/DP pulses, warm, well- perfused, no edema. 1x1cm scab on left and right heel - no discharge, no surrounding erythema, no tenderness Laboratory Results - last 24 hr 12/19/16 12/19/16 12/20/16 20:45 20:45 06:50 WBC RBC Hgb Hct MCV MCHC RDW Plt Count MPV Neutrophils % Lymphocytes % Monocytes % Eosinophils % Basophils % INR Sodium Potassium Chloride Carbon Dioxide Anion Gap BUN Creatinine POC Glucometer [phone] Random Glucose Calcium Phosphorus Magnesium Hepatitis C Antibody Cancelled <0.1 12/20/16 12/20/16 12/20/16 07:45 07:45 08:45 WBC 5.7 RBC 3.85 L Hgb 11.2 L Hct 34.7 L MCV 90.0 MCHC 32.2 RDW 17.7 H Plt Count 76 L MPV 9.0 Neutrophils % Lymphocytes % Monocytes % Eosinophils % Basophils % INR 1.51 H Sodium 142 Potassium 3.8 D Chloride 101 Carbon Dioxide 28 Anion Gap 13 BUN 39 H D Creatinine 4.8 H D POC Glucometer Random Glucose 197 H D Calcium 8.4 L Phosphorus 3.6 D Magnesium 2.1 Hepatitis C Antibody 12/20/16 12/20/16 12/21/16 11:28 21:25 05:45 WBC 6.5 RBC 3.76 L Hgb 10.9 L Hct 34.4 L MCV 91.4 MCHC 31.8 L RDW 18.1 H Plt Count 87 L MPV 9.1 Neutrophils % 78.7 Lymphocytes % 7.4 L D Monocytes % 10.6 H Eosinophils % 2.8 D Basophils % 0.5 INR Sodium Potassium Chloride Carbon Dioxide Anion Gap BUN Creatinine POC Glucometer [phone] Random Glucose Calcium Phosphorus Magnesium Hepatitis C Antibody Active Medications Generic Name Dose Route Start Last Admin Trade Name Freq PRN Reason Stop Dose Admin Acetaminophen 650 mg 12/20/16 15:41 12/21/16 02:40 Tylenol - PO 650 mg Q6H PRN Administration PAIN 6-10 Amiodarone HCl 200 mg 12/20/16 10:00 12/20/16 21:31 Cordarone - PO 200 mg BID PIPER Administration Insulin Aspart 1 vial 12/20/16 11:00 12/21/16 06:39 Novolog Vial Sliding Scale - SQ 6 units ACHS PIPER Administration Protocol Insulin Detemir 12 units 12/20/16 10:00 12/20/16 09:49 Levemir Vial SQ 12 units DAILY PIPER Administration Levothyroxine Sodium 75 mcg 12/20/16 07:00 12/21/16 06:38 Synthroid - PO 75 mcg DAILY@0700 PIPER Administration Midodrine 5 mg 12/20/16 10:00 12/20/16 17:39 Proamatine - PO 5 mg BID-MID PIPER Administration Oxycodone HCl 10 mg 12/20/16 09:31 12/21/16 02:41 Roxicodone - PO 10 mg DAILY PRN Administration PAIN 6-10 Sevelamer Carbonate 1,600 mg 12/20/16 08:00 12/20/16 17:38 Renvela - PO 1,600 mg TIDCM PIPER Administration Sucralfate 1 gm 12/20/16 16:30 12/21/16 06:38 Carafate - PO 1 gm BIDAC PIPER Administration Warfarin Sodium 5 mg 12/20/16 18:00 12/20/16 17:38 Coumadin - PO 5 mg DAILY@1800 PIPER Administration ASSESSMENT/PLAN: 61 yr old man with COPD, CAD s/p CABG and AICD placement, CVA(w/o residual deficits), systolic CHF, DM, ESRD on HD, presented to ED with profound weakness and difficulty walking admitted to ICU for symptomatic hyperkalemia requiring urgent hemodialysis. Renal symptomatic hyperkalemia - likely caused by dietary indiscretions, improved with dialysis - renvela 1600mg po TIDCM piper Cardiovascular Afib - currently in sinus amiodarone 200mg po BID Midodrine 5 mg po BID-MID anticoag with wardarin 5 mg po daily Dermatology - heel pads for heel ulcers Musculoskeletal - physical therapy for gait evaluation - encourage OOB Endocrine DM II NISS and BGM NISS, levemir 15units subq daily Hypothyroid levothyroxine 75mcg BID GI carafate 1gm po BID Dvt; on warfarin Diet: renal diet Dispo: hyperkalemia resolved, patient can be mointored on Med/surg floor Visit type - Emergency Visit Emergency Visit: No - New Patient This patient is new to me today: No - Critical Care Critical Care patient: Yes Total Critical Care Time (in minutes): 36 Critical Care Statement: The care of this patient involved high complexity decision making to prevent further life threatening deterioration of the patient 's condition and/or to evalute & treat vital organ system(s) failure or risk of failure.
[2016-12-21 07:16] LABS: ALBUMIN 3.2 g/dl (3.4-5.0); BILIRUBIN,TOTAL 0.4 mg/dL (0.2-1.0); CALCIUM 8.3 mg/dL (8.5-10.1); COCKROFT - GAULT 11.6; TOT PROT 7.1 g/dl (6.4-8.2)
[2016-12-21] MEDS: SEVELAMER CARBONATE 800 MG TAB (FP) PO SCH ×3 (08:48→17:30)
--- NOTE | 2016-12-21 08:50 | PN ---
Progress Note (short form) - Note Progress Note: Feels very tired, weak in his legs. Hungry. CBC, BMP 12/21/16 05:45 12/21/16 05:45 Vital Signs Period Temp Pulse Resp BP Sys/Lopez Pulse Ox Last 24 Hr 98 F-98.4 F 90-113 14-22 80-116/43-69 97-97 S1S2 RRR Lungs cta Abd+ascites no edema aaox3 Imp Hyperkalemia with weakness ESRD IDDM Hypotension with low EF AICD/PPM Ascites Afib Plan PT eval transfer to floor repeat HD in am tomorrow and then dc planning Problem List - Problems (1) Coronary artery disease Code(s): I25.10 - ATHSCL HEART DISEASE OF [place] CORONARY ARTERY W/O ANG PCTRS Qualifiers: Coronary Disease-Associated Artery/Lesion type: [place] artery [place] vs. transplanted heart: [place] heart Associated angina: without angina Qualified Code(s): I25.10 - Atherosclerotic heart disease of [place] coronary artery without angina pectoris (2) Diabetes mellitus Code(s): E11.9 - TYPE 2 DIABETES MELLITUS WITHOUT COMPLICATIONS Qualifiers: Diabetes mellitus type: type 1 Diabetes mellitus complication status: with kidney complications Diabetes mellitus complication detail: with chronic kidney disease Chronic kidney disease stage: on chronic dialysis Qualified Code(s): E10.22 - Type 1 diabetes mellitus with diabetic chronic kidney disease; N18.1 - Chronic kidney disease, stage 1 (3) Hyperkalemia Code(s): E87.5 - HYPERKALEMIA (4) Hypothyroidism Code(s): E03.9 - HYPOTHYROIDISM, UNSPECIFIED Qualifiers: Hypothyroidism type: acquired Qualified Code(s): E03.9 - Hypothyroidism, unspecified (5) ICD (implantable cardioverter-defibrillator) discharge Code(s): Z45.02 - ENCNTR FOR ADJUST AND MGMT OF AUTOMATIC IMPLNTBL CARD DEFIB (6) Ischemic dilated cardiomyopathy Code(s): I25.5 - ISCHEMIC CARDIOMYOPATHY (7) Ascites Code(s): R18.8 - OTHER ASCITES Qualifiers: Ascites type: other type Qualified Code(s): R18.8 - Other ascites (8) Atrial fibrillation Code(s): I48.91 - UNSPECIFIED ATRIAL FIBRILLATION Qualifiers: Atrial fibrillation type: persistent Qualified Code(s): I48.1 - Persistent atrial fibrillation (9) Cirrhosis Code(s): K74.60 - UNSPECIFIED CIRRHOSIS OF LIVER Qualifiers: Hepatic cirrhosis type: unspecified hepatic cirrhosis Ascites presence : with ascites Qualified Code(s): K74.60 - Unspecified cirrhosis of liver (10) ESRD (end stage renal disease) Code(s): N18.6 - END STAGE RENAL DISEASE (11) S/P CABG (coronary artery bypass graft) Code(s): Z95.1 - PRESENCE OF AORTOCORONARY BYPASS GRAFT
[2016-12-21] MEDS ORDERED: LACTULOSE 20 GM/30 ML UDC (FOR ORAL USE ONLY) PO PRN (08:52)
[2016-12-21] MEDS: AMIODARONE HCL 200 MG TABLET (FP) PO SCH ×2 (09:02→21:06)
[2016-12-21] MEDS: MIDODRINE HCL 5 MG TABLET PO SCH ×2 (09:02→17:31)
[2016-12-21] MEDS: INSULIN DETEMIR 100 UNITS/ML MDV SQ SCH (09:18)
[2016-12-21 09:42] LABS: INR 1.37 (0.82-1.09); PROTHROMBIN TIME (PATIENT) 15.2 SEC (9.98-11.88)
--- NOTE | 2016-12-21 12:04 | PN ---
Teaching Attending Note Name of Resident: Rudy Hahn ATTENDING PHYSICIAN STATEMENT I saw and evaluated the patient. I reviewed the resident's note and discussed the case with the resident. I agree with the resident's findings and plan as documented. SUBJECTIVE: Pt seen and examined in the ICU. Still with leg weakness, foot pain. Denies shortness of breath or chest pain. OBJECTIVE: Last Vital Signs Temp Pulse Resp BP Pulse Ox 97.6 F 93 H 22 85/48 97 12/21/16 10:00 12/21/16 10:00 12/21/16 10:00 12/21/16 10:00 12/21/16 09:00 Intake & Output 12/18/16 12/19/16 12/20/16 12/21/16 23:59 23:59 23:59 23:59 Intake Total 300 640 300 Output Total 0 Balance 300 640 300 Weight 168 lb 3 oz 168 lb 3 oz 166 lb 4 oz Gen: NAD at rest Heart: RRR Lung: decreased breath sounds at the bases Abd: soft, nontender Ext: no edema CBC, BMP 12/21/16 05:45 12/21/16 05:45 Active Medications Amiodarone HCl (Cordarone -) 200 mg PO BID [facility] Last Admin: 12/21/16 09:02 Dose: 200 mg Insulin Aspart (Novolog Vial Sliding Scale -) 1 vial SQ ACHS [facility] PRN Reason: Protocol Last Admin: 12/21/16 11:46 Dose: 4 units Insulin Detemir (Levemir Vial) 16 units SQ DAILY [facility] Last Admin: 12/21/16 09:18 Dose: 16 units Lactulose (Cephulac (Oral Use)) 20 gm PO DAILY PRN PRN Reason: CONSTIPATION Levothyroxine Sodium (Synthroid -) 75 mcg PO DAILY@0700 [facility] Last Admin: 12/21/16 06:38 Dose: 75 mcg Midodrine (Proamatine -) 5 mg PO BID-MID [facility] Last Admin: 12/21/16 09:02 Dose: 5 mg Oxycodone HCl (Roxicodone -) 10 mg PO BID PRN Last Admin: 12/21/16 09:15 Dose: Not Given Sevelamer Carbonate (Renvela -) 1,600 mg PO TIDCM [facility] Last Admin: 12/21/16 11:49 Dose: 1,600 mg Sucralfate (Carafate -) 1 gm PO BIDAC [facility] Last Admin: 12/21/16 06:38 Dose: 1 gm Warfarin Sodium (Coumadin -) 5 mg PO DAILY@1800 [facility] Last Admin: 12/20/16 17:38 Dose: 5 mg ASSESSMENT AND PLAN: Hyperkalemia requiring urgent HD ESRD on HD CAD s/p CABG Atrial Fibrillation COPD HTN DM h/o CVA LV Systolic Dysfunction Pulmonary HTN - HD per renal - monitor lytes - heel pad - renal diet, surveillance investigator education - rate controlled - continue anticoagulation - PT eval - DVT prophylaxis - can monitor on floor
--- NOTE | 2016-12-21 12:39 | EKG ---
Test Reason : Blood Pressure : / mmHG Vent. Rate : 089 BPM Atrial Rate : 089 BPM P-R Int : 080 ms QRS Dur : 206 ms QT Int : 474 ms P-R-T Axes : 144 256 100 degrees QTc Int : 576 ms SUSPECT ARM LEAD REVERSAL, INTERPRETATION ASSUMES NO REVERSAL UNUSUAL P AXIS, POSSIBLE ECTOPIC ATRIAL RHYTHM NON-SPECIFIC INTRA-VENTRICULAR CONDUCTION BLOCK RIGHT VENTRICULAR HYPERTROPHY INFERIOR INFARCT (CITED ON OR BEFORE 19-DEC-2016) ANTEROLATERAL INFARCT (CITED ON OR BEFORE 21-AUG-2014) ABNORMAL ECG WHEN COMPARED WITH ECG OF 19-DEC-2016 16:39, ECTOPIC ATRIAL RHYTHM HAS REPLACED SINUS RHYTHM SERIAL CHANGES OF INFERIOR INFARCT PRESENT Confirmed by ASHLEY PINTO MD ([id number]) on 12/21/2016 12:39:35 PM Referred By: Confirmed By:ASHLEY PINTO MD
--- NOTE | 2016-12-21 12:39 | EKG ---
Test Reason : Blood Pressure : / mmHG Vent. Rate : 061 BPM Atrial Rate : 061 BPM P-R Int : 096 ms QRS Dur : 170 ms QT Int : 480 ms P-R-T Axes : 139 270 126 degrees QTc Int : 483 ms SUSPECT ARM LEAD REVERSAL, INTERPRETATION ASSUMES NO REVERSAL UNUSUAL P AXIS, POSSIBLE ECTOPIC ATRIAL RHYTHM NON-SPECIFIC INTRA-VENTRICULAR CONDUCTION BLOCK RIGHT VENTRICULAR HYPERTROPHY INFERIOR INFARCT (CITED ON OR BEFORE 19-DEC-2016) ANTEROLATERAL INFARCT (CITED ON OR BEFORE 21-AUG-2014) ABNORMAL ECG WHEN COMPARED WITH ECG OF 19-DEC-2016 17:41, QRS DURATION HAS DECREASED SERIAL CHANGES OF INFERIOR INFARCT PRESENT Confirmed by ASHLEY PINTO MD ([id number]) on 12/21/2016 12:38:58 PM Referred By: Confirmed By:ASHLEY PINTO MD
--- NOTE | 2016-12-21 12:39 | EKG ---
Test Reason : Blood Pressure : / mmHG Vent. Rate : 103 BPM Atrial Rate : 103 BPM P-R Int : 080 ms QRS Dur : 198 ms QT Int : 438 ms P-R-T Axes : 000 262 098 degrees QTc Int : 573 ms SINUS TACHYCARDIA WITH SHORT MS RIGHT BUNDLE BRANCH BLOCK INFERIOR INFARCT , AGE UNDETERMINED ANTEROLATERAL INFARCT (CITED ON OR BEFORE 21-AUG-2014) ABNORMAL ECG WHEN COMPARED WITH ECG OF 02-AUG-2016 17:12, SIGNIFICANT CHANGES HAVE OCCURRED Confirmed by ASHLEY PINTO MD ([id number]) on 12/21/2016 12:39:17 PM Referred By: Confirmed By:ASHLEY PINTO MD
[2016-12-21] MEDS ORDERED: PANTOPRAZOLE SODIUM 100 ML IVPB ONE (16:32)
[2016-12-21] MEDS: WARFARIN NA 5 MG TABLET (UD) PO SCH (17:33)
[2016-12-21 18:41] LABS: ANION GAP 14 (8-16); CALCIUM 8.2 mg/dL (8.5-10.1); CO2 27 mmol/L (21-32); GLUCOSE,RANDOM 183 mg/dL (74-106)
[2016-12-21 18:47] LABS: CREATININE 7.7 mg/dL (0.7-1.3)
[2016-12-21] MEDS ORDERED: HEMOQUE TEST 1 EACH EACH ONE (21:09)
[2016-12-21] MEDS: POLYETHYLENE GLYCOL 3350 119 GM BTL PO SCH (21:21)
[2016-12-22 00:11] LABS: HEP B SURFACE AB Non Reactive (.)
[2016-12-22] MEDS: oxyCODONE HCL 5 MG TABLET PO PRN ×3 (04:40→20:08)
[2016-12-22] MEDS ORDERED: PT OWN MED DRAWER 7, Y5N ONE (05:48)
[2016-12-22] MEDS: INSULIN SLIDING SCALE (NOVOLOG) 1 VIAL SQ SCH ×4 (06:32→22:44)
[2016-12-22] MEDS: SUCRALFATE 1 GM TABLET (FP) PO SCH ×2 (06:32→16:57)
[2016-12-22] MEDS: LEVOTHYROXINE NA 75 MCG TABLET (FP) PO SCH (06:32)
[2016-12-22] MEDS: SEVELAMER CARBONATE 800 MG TAB (FP) PO SCH ×3 (08:30→17:14)
--- NOTE | 2016-12-22 08:42 | PN ---
Progress Note (short form) - Note Progress Note: RENAL 61 with severe lv dysf I believe has an AICD Came with hyperkalemia dialyzed two days and sun Last night became bradycardic HR in 30s amiodarone held HR 50s nauseous to be seen by cardiology Weight gain 7 lbs! HD today Hips 20 NR UF first 1.5 hr target 1.5 HD 2 hrs K2 ca2.5 target 1-1.5 Give midodrine pre HD
[2016-12-22] MEDS: INSULIN DETEMIR 100 UNITS/ML MDV SQ SCH (10:00)
[2016-12-22] MEDS: POLYETHYLENE GLYCOL 3350 119 GM BTL PO SCH ×2 (10:19→22:00)
[2016-12-22] MEDS: MIDODRINE HCL 5 MG TABLET PO SCH (12:01)
--- NOTE | 2016-12-22 13:09 | CON.CARD ---
Consult Consult Specialty:: Cardiology Referred by:: Cecilia Delcid Reason for Consultation:: ischemic cardiomyopathy s/p ICD - History of Present Illness Chief Complaint: Bradycardia History of Present Illness: Patient is an 61 year old male with underlying history of anemia, COPD, HTN, hypercholesterolemia, diabetes mellitus, CVA, CAD S/P PCI/stent, CABG, ischemic cardiomyopathy, S/P ICD ([employer]), ESRD on HD admitted for weakness, found to be hyperkalemic 7.3 requiring urgent HD. He denies chest tightness, paroxysmal nocturnal dyspnea or orthopnea, LE edema, palpitations, HR 40-50s. 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: Yes: Peripheral Neuropathy Cardio/Vascular: Yes: AFIB, CAD, CHF, HTN, Hyperlipdemia Pulmonary: Yes: Other (h/o MARIAN in lungs-not treated) Gastrointestinal: Yes: Other (cirrhosis-based on GONG likely) Renal/: Yes: Renal Failure, Hemodialysis Psych: Yes: Anxiety Endocrine: Yes: Diabetes Mellitus (IDDM), Hypothyroidism - Past Surgical History Past Surgical History: Yes: AICD (PPM), AV Fistula/Graft, CABG (3 vessel in 2009 ), Cholecystectomy (2006) - Alcohol/Substance Use Hx Alcohol Use: No History of Substance Use: reports: None - Smoking History Smoking history: Never smoked Have you smoked in the past 12 months: No Aproximately how many cigarettes per day: 0 - Social History Usual Living Arrangement: With Spouse ADL: Independent History of Recent Travel: No Home Medications - Allergies Allergies/Adverse Reactions: Allergies Allergy/AdvReac Type Severity Reaction Status Date / Time No Known Drug Allergies Allergy Verified 12/19/16 16:52 - Home Medications Home Medications: Ambulatory Orders Levothyroxine [Synthroid -] 75 mcg PO DAILY 09/13/14 Sevelamer Carbonate [Renvela -] 1,600 mg PO TIDCM tab 04/29/16 Amiodarone HCl [Cordarone -] 200 mg PO BID #60 tablet 07/12/16 Oxycodone HCl/Acetaminophen [Percocet 10-325 mg Tablet] 1 each PO BID PRN #60 tablet MDD 2 07/12/16 Warfarin Na [Coumadin -] 5 mg PO DAILY@1800 tablet 08/04/16 Insulin Regular [NOVOLIN R VIAL *IVPUSH / ER / ICU Only*] 0 units SQ TID Sucralfate [Carafate -] 1 gm PO BID 12/19/16 Review of Systems - Review of Systems Constitutional: reports: Weakness Vital Signs: Vital Signs Temperature 97.1 F L 12/22/16 12:00 Pulse Rate 50 L 12/22/16 12:00 Respiratory Rate 18 12/22/16 12:00 Blood Pressure 96/67 12/22/16 12:00 O2 Sat by Pulse Oximetry (%) 96 12/22/16 08:00 Constitutional: Yes: No Distress, Calm Neck: Yes: Supple Respiratory: Yes: Regular, Diminished, On Nasal O2 Gastrointestinal: Yes: Normal Bowel Sounds, Soft Cardiovascular: Yes: Bradycardia JVD: No Carotid Bruit: No Heart Sounds: Yes: S1, S2 Murmur: Yes: Systolic Murmur, Grade 1 Edema: No - Other Data Labs, Other Data: CBC, BMP 12/21/16 05:45 12/21/16 16:30 INR, PTT INR 1.37 (0.82-1.09) H 12/21/16 08:40 EKG c/w hyperkalemia Ejection Fraction %: LVEF > or = 40 % Imaging - Results Chest X-ray: Report Reviewed (Right base changes) Problem List - Problems (1) Diabetes mellitus Code(s): E11.9 - TYPE 2 DIABETES MELLITUS WITHOUT COMPLICATIONS Qualifiers: Diabetes mellitus type: type 1 Diabetes mellitus complication status: with kidney complications Diabetes mellitus complication detail: with chronic kidney disease Chronic kidney disease stage: on chronic dialysis Qualified Code(s): E10.22 - Type 1 diabetes mellitus with diabetic chronic kidney disease; N18.1 - Chronic kidney disease, stage 1 (2) Hyperkalemia Code(s): E87.5 - HYPERKALEMIA (3) Hypothyroidism Code(s): E03.9 - HYPOTHYROIDISM, UNSPECIFIED Qualifiers: Hypothyroidism type: acquired Qualified Code(s): E03.9 - Hypothyroidism, unspecified (4) Ischemic dilated cardiomyopathy Code(s): I25.5 - ISCHEMIC CARDIOMYOPATHY (5) S/P coronary artery stent placement Code(s): Z95.5 - PRESENCE OF CORONARY ANGIOPLASTY IMPLANT AND GRAFT (6) Atrial fibrillation Code(s): I48.91 - UNSPECIFIED ATRIAL FIBRILLATION Qualifiers: Atrial fibrillation type: persistent Qualified Code(s): I48.1 - Persistent atrial fibrillation (7) ESRD (end stage renal disease) Code(s): N18.6 - END STAGE RENAL DISEASE (8) S/P CABG (coronary artery bypass graft) Code(s): Z95.1 - PRESENCE OF AORTOCORONARY BYPASS GRAFT (9) ICD (implantable cardioverter-defibrillator) in place Code(s): Z95.810 - PRESENCE OF AUTOMATIC (IMPLANTABLE) CARDIAC DEFIBRILLATOR Assessment/Plan 1. Hyperkalemia requiring urgent HD with bradycardia 2. CAD S/P PCI, CABG, angina 3. Atrial fibrillation, persistent with variable ventricular response and subtherapeuic INR 4. ESRD on HD 5. Ischemic dilated cardiomyopathy with pulm HTN 6. Diabetes Mellitus 7. COPD 8. Orthostatic hypotension 9. DM 10. h/o CVA PLAN: 1. Amiodarone held, interrogate device, HD per renal service 2. Dose Coumadin per INR 3. HD as per renal 4. Midodrine 5 bid 5. Thank you for consiultativ opportunity
[2016-12-22] MEDS ORDERED: MIDODRINE HCL 5 MG TABLET PO SCH (13:14)
[2016-12-22 13:35] LABS: BASOPHIL 1.1 % (0-2.0)
[2016-12-22 13:38] LABS: EOSINOPHIL 1.2 % (0-4.5); MEAN CELL VOLUME 90.5 fl (80-96); MEAN PLT VOLUME 9.4 fl (7.5-11.1); NEUTROPHILS 84.8 % (42.8-82.8); PLATELET COUNT 82 K/MM3 (134-434); WHITE BLOOD COUNT 9.9 K/mm3 (4.0-10.0)
[2016-12-22 13:48] LABS: INR 1.67 (0.82-1.09); PROTHROMBIN TIME (PATIENT) 18.6 SEC (9.98-11.88)
[2016-12-22 14:02] LABS: ANION GAP 17 (8-16); CALCIUM 8.1 mg/dL (8.5-10.1); CO2 22 mmol/L (21-32); GLUCOSE,RANDOM 205 mg/dL (74-106); MAGNESIUM 2.3 mg/dL (1.8-2.4); PHOSPHOROUS 8.2 mg/dL (2.5-4.9)
--- NOTE | 2016-12-22 14:23 | PN ---
Teaching Attending Note Name of Resident: Rudy Hahn ATTENDING PHYSICIAN STATEMENT I saw and evaluated the patient. I reviewed the resident's note and discussed the case with the resident. I agree with the resident's findings and plan as documented. SUBJECTIVE: Patient seen and examined in the ICU. Awake and alert. Abdominal discomfort and nausea due to ascites. Denies shortness of breath or chest pain. Noted episodes of bradycardia to the 30's overnight. OBJECTIVE: Intake & Output 12/19/16 12/20/16 12/21/16 12/22/16 23:59 23:59 23:59 23:59 Intake Total 088 684 8252 150 Output Total 0 Balance 474 257 8386 150 Weight 168 lb 3 oz 168 lb 3 oz 166 lb 4 oz 173 lb 1 oz Last Vital Signs Temp Pulse Resp BP Pulse Ox 97.0 F L 59 L 14 98/56 96 12/22/16 14:00 12/22/16 14:00 12/22/16 14:00 12/22/16 14:00 12/22/16 08:00 Active Medications Insulin Aspart (Novolog Vial Sliding Scale -) 1 vial SQ ACHS [facility] PRN Reason: Protocol Last Admin: 12/22/16 11:19 Dose: 6 units Insulin Detemir (Levemir Vial) 16 units SQ DAILY [facility] Last Admin: 12/22/16 10:00 Dose: Not Given Lactulose (Cephulac (Oral Use)) 20 gm PO DAILY PRN PRN Reason: CONSTIPATION Levothyroxine Sodium (Synthroid -) 75 mcg PO DAILY@0700 [facility] Last Admin: 12/22/16 06:32 Dose: 75 mcg Midodrine (Proamatine -) 10 mg PO DAILY [facility] Oxycodone HCl (Roxicodone -) 10 mg PO BID PRN Last Admin: 12/22/16 12:10 Dose: 10 mg Polyethylene Glycol (Miralax (For Daily Use) -) 17 gm PO BID [facility] Last Admin: 12/22/16 10:19 Dose: Not Given Sevelamer Carbonate (Renvela -) 1,600 mg PO TIDCM [facility] Last Admin: 12/22/16 12:07 Dose: 1,600 mg Sucralfate (Carafate -) 1 gm PO BIDAC [facility] Last Admin: 12/22/16 06:32 Dose: 1 gm Warfarin Sodium (Coumadin -) 5 mg PO DAILY@1800 [facility] Last Admin: 12/21/16 17:33 Dose: 5 mg Gen: NAD at rest Heart: RRR Lung: decreased breath sounds at the bases Abd: soft, nontender Ext: no edema Laboratory Results - last 24 hr 12/19/16 12/21/16 12/21/16 20:45 15:54 16:30 WBC RBC Hgb Hct MCV MCHC RDW Plt Count MPV Neutrophils % Lymphocytes % Monocytes % Eosinophils % Basophils % INR Sodium 134 L Potassium 5.7 H Chloride 93 L Carbon Dioxide 27 Anion Gap 14 BUN 65 H D Creatinine 7.7 H* POC Glucometer 226.37064 Random Glucose 183 H D Calcium 8.2 L Phosphorus Magnesium Hep A IgM Ab Confirm Negative Hepatitis A Ab Total Positive H Hep Bs Antigen Negative Hep Bs Antibody Non reactive Hep B Core Total Ab Negative 12/21/16 12/22/16 12/22/16 21:14 05:41 13:28 WBC RBC Hgb Hct MCV MCHC RDW Plt Count MPV Neutrophils % Lymphocytes % Monocytes % Eosinophils % Basophils % INR 1.67 H Sodium Potassium Chloride Carbon Dioxide Anion Gap BUN Creatinine POC Glucometer 223.58383 195.55287 Random Glucose Calcium Phosphorus Magnesium Hep A IgM Ab Confirm Hepatitis A Ab Total Hep Bs Antigen Hep Bs Antibody Hep B Core Total Ab 12/22/16 12/22/16 13:28 13:28 WBC 9.9 D RBC 4.01 Hgb 11.6 L Hct 36.3 MCV 90.5 MCHC 32.0 RDW 18.0 H Plt Count 82 L MPV 9.4 Neutrophils % 84.8 H Lymphocytes % 5.0 L D Monocytes % 7.9 Eosinophils % 1.2 Basophils % 1.1 INR Sodium 131 L Potassium Chloride 92 L Carbon Dioxide 22 Anion Gap 17 H BUN 87 H D Creatinine POC Glucometer Random Glucose 205 H Calcium 8.1 L Phosphorus 8.2 H D Magnesium 2.3 Hep A IgM Ab Confirm Hepatitis A Ab Total Hep Bs Antigen Hep Bs Antibody Hep B Core Total Ab ASSESSMENT AND PLAN: Hyperkalemia requiring urgent HD ESRD on HD CAD s/p CABG Atrial Fibrillation COPD HTN DM h/o CVA LV Systolic Dysfunction Pulmonary HTN - Hold Amiodarone - Cardiology evaluation - HD per renal - monitor lytes - heel pad - continue anticoagulation - DVT prophylaxis - May need paracentesis - Cardiac Telemetry monitoring Dr Jonny critical care time spent in reviewing chart, evaluating patient and formulating plan 40 min
[2016-12-22 14:27] LABS: CREATININE 7.2 mg/dL (0.7-1.3)
--- NOTE | 2016-12-22 16:01 | PN ---
Progress Note (short form) - Note Progress Note: Bradycardic yesterday and this am, HR in 40s Correction pt has AICD but no PPM Amiodarone stopped CBC, BMP 12/22/16 13:28 12/22/16 13:28 Vital Signs Period Temp Pulse Resp BP Sys/Lopez Pulse Ox Last 24 Hr 96.2 F-98.2 F 48-84 14-20 90-151/32-70 96-97 S1S2 RRR Lungs cta Abd+ascites, but better than yesterday no edema aaox3 Imp Bradycardia Hyperkalemia with weakness ESRD IDDM Hypotension with low EF AICD Ascites Afib Plan continue cardiac monitoring PT eval dc planning once cleared by cardiology need for PPM? consults appreciated Problem List - Problems (1) Coronary artery disease Code(s): I25.10 - ATHSCL HEART DISEASE OF [place] CORONARY ARTERY W/O ANG PCTRS Qualifiers: Coronary Disease-Associated Artery/Lesion type: [place] artery [place] vs. transplanted heart: [place] heart Associated angina: without angina Qualified Code(s): I25.10 - Atherosclerotic heart disease of [place] coronary artery without angina pectoris (2) Diabetes mellitus Code(s): E11.9 - TYPE 2 DIABETES MELLITUS WITHOUT COMPLICATIONS Qualifiers: Diabetes mellitus type: type 1 Diabetes mellitus complication status: with kidney complications Diabetes mellitus complication detail: with chronic kidney disease Chronic kidney disease stage: on chronic dialysis Qualified Code(s): E10.22 - Type 1 diabetes mellitus with diabetic chronic kidney disease; N18.1 - Chronic kidney disease, stage 1 (3) Hyperkalemia Code(s): E87.5 - HYPERKALEMIA (4) Hypothyroidism Code(s): E03.9 - HYPOTHYROIDISM, UNSPECIFIED Qualifiers: Hypothyroidism type: acquired Qualified Code(s): E03.9 - Hypothyroidism, unspecified (5) ICD (implantable cardioverter-defibrillator) discharge Code(s): Z45.02 - ENCNTR FOR ADJUST AND MGMT OF AUTOMATIC IMPLNTBL CARD DEFIB (6) Ischemic dilated cardiomyopathy Code(s): I25.5 - ISCHEMIC CARDIOMYOPATHY (7) Ascites Code(s): R18.8 - OTHER ASCITES Qualifiers: Ascites type: other type Qualified Code(s): R18.8 - Other ascites (8) Atrial fibrillation Code(s): I48.91 - UNSPECIFIED ATRIAL FIBRILLATION Qualifiers: Atrial fibrillation type: persistent Qualified Code(s): I48.1 - Persistent atrial fibrillation (9) Cirrhosis Code(s): K74.60 - UNSPECIFIED CIRRHOSIS OF LIVER Qualifiers: Hepatic cirrhosis type: unspecified hepatic cirrhosis Ascites presence : with ascites Qualified Code(s): K74.60 - Unspecified cirrhosis of liver (10) ESRD (end stage renal disease) Code(s): N18.6 - END STAGE RENAL DISEASE (11) S/P CABG (coronary artery bypass graft) Code(s): Z95.1 - PRESENCE OF AORTOCORONARY BYPASS GRAFT
--- NOTE | 2016-12-22 16:40 | PN ---
Physical Exam: SUBJECTIVE: Patient seen and examined. concerned about keeping his dialysis scheduled. c/o not receiving his heel pads. denies chest pain, changes in vision, lightheadedness, nausea, abdominal pain. concerned about not having had a bowel movement. OBJECTIVE: Vital Signs Period Temp Pulse Resp BP Sys/Lopez Pulse Ox Last 24 Hr 96.2 F-98.2 F 48-84 14-20 90-151/32-75 96-97 EYES: PERRL, extraocular movements intact, sclera anicteric, conjunctiva clear. ENT: oropharynx clear without exudates, moist mucous membranes. LUNGS: CTAB, quiet at bases HEART: Regular rate and rhythm, S1, S2 without murmur, rub or gallop. ABDOMEN: Soft, nontender, distended, +ascitis, normoactive bowel sounds, no guarding, EXTREMITIES: right arm with palpable thrill, 2+ radial/DP pulses, warm, well- perfused, no edema. 1x1cm scab on left and right heel - no discharge, no surrounding erythema, no tenderness Laboratory Results - last 24 hr 12/19/16 12/21/16 12/21/16 20:45 16:30 21:14 WBC RBC Hgb Hct MCV MCHC RDW Plt Count MPV Neutrophils % Lymphocytes % Monocytes % Eosinophils % Basophils % INR Sodium 134 L Potassium 5.7 H Chloride 93 L Carbon Dioxide 27 Anion Gap 14 BUN 65 H D Creatinine 7.7 H* POC Glucometer [phone] Random Glucose 183 H D Calcium 8.2 L Phosphorus Magnesium Hep A IgM Ab Confirm Negative Hepatitis A Ab Total Positive H Hep Bs Antigen Negative Hep Bs Antibody Non reactive Hep B Core Total Ab Negative 12/22/16 12/22/16 12/22/16 05:41 13:28 13:28 WBC 9.9 D RBC 4.01 Hgb 11.6 L Hct 36.3 MCV 90.5 MCHC 32.0 RDW 18.0 H Plt Count 82 L MPV 9.4 Neutrophils % 84.8 H Lymphocytes % 5.0 L D Monocytes % 7.9 Eosinophils % 1.2 Basophils % 1.1 INR 1.67 H Sodium Potassium Chloride Carbon Dioxide Anion Gap BUN Creatinine POC Glucometer [phone] Random Glucose Calcium Phosphorus Magnesium Hep A IgM Ab Confirm Hepatitis A Ab Total Hep Bs Antigen Hep Bs Antibody Hep B Core Total Ab 12/22/16 13:28 WBC RBC Hgb Hct MCV MCHC RDW Plt Count MPV Neutrophils % Lymphocytes % Monocytes % Eosinophils % Basophils % INR Sodium 131 L Potassium 7.2 H* D Chloride 92 L Carbon Dioxide 22 Anion Gap 17 H BUN 87 H D Creatinine 7.2 H POC Glucometer Random Glucose 205 H Calcium 8.1 L Phosphorus 8.2 H D Magnesium 2.3 Hep A IgM Ab Confirm Hepatitis A Ab Total Hep Bs Antigen Hep Bs Antibody Hep B Core Total Ab Active Medications Generic Name Dose Route Start Last Admin Trade Name Freq PRN Reason Stop Dose Admin Insulin Aspart 1 vial 12/22/16 16:30 Novolog Vial Sliding Scale - SQ ACHS [facility] Protocol Insulin Detemir 16 units 12/23/16 10:00 Levemir Vial SQ DAILY [facility] Lactulose 20 gm 12/22/16 15:14 Cephulac (Oral Use) PO DAILY PRN CONSTIPATION Levothyroxine Sodium 75 mcg 12/23/16 07:00 Synthroid - PO DAILY@0700 [facility] Midodrine 10 mg 12/23/16 10:00 Proamatine - PO DAILY [facility] Oxycodone HCl 10 mg 12/22/16 15:14 Roxicodone - PO BID PRN Polyethylene Glycol 17 gm 12/22/16 22:00 Miralax (For Daily Use) - PO BID [facility] Sevelamer Carbonate 1,600 mg 12/22/16 17:30 Renvela - PO TIDCM [facility] Sucralfate 1 gm 12/22/16 16:30 Carafate - PO BIDAC [facility] Warfarin Sodium 5 mg 12/22/16 18:00 Coumadin - PO DAILY@1800 [facility] ASSESSMENT/PLAN: 61 yr old man with COPD, CAD s/p CABG and AICD placement, CVA(w/o residual deficits), systolic CHF, DM, ESRD on HD, presented to ED with profound weakness and difficulty walking admitted to ICU for symptomatic hyperkalemia requiring urgent hemodialysis. Renal symptomatic hyperkalemia - likely caused by dietary indiscretions, improved with dialysis - received dialysis today - renvela 1600mg po TIDCM [facility] Cardi[facility] Afib - currently in sinus amiodarone 200mg po BID - held last night and this morning due to sinus bradycardia 40-50's since yesterday evening. - labs last night wnl, pt was not complaining of chest pain, lightheadedness, BP stable. - [employer] rep investigated device this afternoon - device is functioning normally, it is set to be ventricularily paced at 40bpm and pt's hx shows him to be in this rhythm 25% of the time. - As per Dr. Wu, the amiodarone can be restarted this afternoon Midodrine 5 mg po BID-MID --> changed, pt is supposed to receive 10mg po before dialysis anticoag with wardarin 5 mg po daily Dermatology - heel pads for heel ulcers Musculoskeletal - physical therapy for gait evaluation - encourage OOB Endocrine DM II NISS and BGM NISS, levemir 15units subq daily Hypothyroid levothyroxine 75mcg BID GI carafate 1gm po BID lactulose prn Dvt; on warfarin Diet: renal diet Dispo: hyperkalemia improves with dialysis, bradycardia is asymptomatic and typical for patient, patient can be monitored on Med/surg floor Visit type - Emergency Visit Emergency Visit: No - New Patient This patient is new to me today: No - Critical Care Critical Care patient: Yes Total Critical Care Time (in minutes): 36 Critical Care Statement: The care of this patient involved high complexity decision making to prevent further life threatening deterioration of the patient 's condition and/or to evalute & treat vital organ system(s) failure or risk of failure.
[2016-12-22] MEDS: WARFARIN NA 5 MG TABLET (UD) PO SCH (17:14)
[2016-12-22] MEDS: AMIODARONE HCL 200 MG TABLET (FP) PO SCH (22:22)
[2016-12-23] MEDS: INSULIN SLIDING SCALE (NOVOLOG) 1 VIAL SQ SCH ×4 (06:37→22:00)
[2016-12-23] MEDS: SUCRALFATE 1 GM TABLET (FP) PO SCH ×2 (06:37→16:37)
[2016-12-23] MEDS: LEVOTHYROXINE NA 75 MCG TABLET (FP) PO SCH (06:38)
[2016-12-23 07:23] LABS: INR 1.83 (0.82-1.09); PROTHROMBIN TIME (PATIENT) 20.4 SEC (9.98-11.88)
[2016-12-23 07:30] LABS: ALBUMIN 3.2 g/dl (3.4-5.0); ANION GAP 11 (8-16); CALCIUM 7.9 mg/dL (8.5-10.1); CO2 32 mmol/L (21-32); GLUCOSE,RANDOM 189 mg/dL (74-106)
[2016-12-23] MEDS: oxyCODONE HCL 5 MG TABLET PO PRN ×2 (07:39→20:02)
[2016-12-23 07:41] LABS: ALK PHOS 90 U/L (45-117); BASOPHIL 0.8 % (0-2.0); BILIRUBIN,TOTAL 0.4 mg/dL (0.2-1.0); CREATININE 6.5 mg/dL (0.7-1.3); EOSINOPHIL 3.7 % (0-4.5); MCH 28.9 pg (25.7-33.7); MCHC 31.7 g/dl (32.0-35.9); MEAN CELL VOLUME 91.4 fl (80-96); MEAN PLT VOLUME 9.4 fl (7.5-11.1); NEUTROPHILS 76.3 % (42.8-82.8); PLATELET COUNT 74 K/MM3 (134-434); RDW 18.2 % (11.9-15.9); SGOT/AST 16 U/L (15-37); SGPT/ALT 20 U/L (12-78); THYROID STIMULATING HORMONE 9.94 uIU/ml (0.358-3.74)
[2016-12-23] MEDS: SEVELAMER CARBONATE 800 MG TAB (FP) PO SCH ×3 (08:29→18:05)
[2016-12-23] MEDS: MIDODRINE HCL 5 MG TABLET PO SCH ×2 (09:41→12:40)
[2016-12-23] MEDS: AMIODARONE HCL 200 MG TABLET (FP) PO SCH ×2 (09:44→22:00)
[2016-12-23] MEDS: POLYETHYLENE GLYCOL 3350 119 GM BTL PO SCH ×2 (09:47→22:00)
--- NOTE | 2016-12-23 09:48 | PN ---
Progress Note, Physician Chief Complaint: No new complaints - Current Medication List Current Medications: Active Medications Amiodarone HCl (Cordarone -) 200 mg PO BID [facility] Last Admin: 12/23/16 09:44 Dose: 200 mg Insulin Aspart (Novolog Vial Sliding Scale -) 1 vial SQ ACHS [facility] PRN Reason: Protocol Last Admin: 12/23/16 06:37 Dose: 4 units Insulin Detemir (Levemir Vial) 16 units SQ DAILY [facility] Lactulose (Cephulac (Oral Use)) 20 gm PO DAILY PRN PRN Reason: CONSTIPATION Levothyroxine Sodium (Synthroid -) 75 mcg PO DAILY@0700 [facility] Last Admin: 12/23/16 06:38 Dose: 75 mcg Midodrine (Proamatine -) 10 mg PO DAILY [facility] Last Admin: 12/23/16 09:41 Dose: Not Given Oxycodone HCl (Roxicodone -) 10 mg PO BID PRN Last Admin: 12/23/16 07:39 Dose: 10 mg Polyethylene Glycol (Miralax (For Daily Use) -) 17 gm PO BID [facility] Last Admin: 12/23/16 09:47 Dose: Not Given Sevelamer Carbonate (Renvela -) 1,600 mg PO TIDCM [facility] Last Admin: 12/23/16 08:29 Dose: 1,600 mg Sucralfate (Carafate -) 1 gm PO BIDAC [facility] Last Admin: 12/23/16 06:37 Dose: 1 gm Warfarin Sodium (Coumadin -) 5 mg PO DAILY@1800 [facility] Last Admin: 12/22/16 17:14 Dose: 5 mg - Objective Vital Signs: Vital Signs Temperature 97.6 F 12/23/16 08:00 Pulse Rate 57 L 12/23/16 08:00 Respiratory Rate 19 12/23/16 08:17 Blood Pressure 83/48 12/23/16 08:00 O2 Sat by Pulse Oximetry (%) 100 12/23/16 08:17 Constitutional: Yes: No Distress Neck: Yes: Supple, Trachea Midline Cardiovascular: Yes: Regular Rate and Rhythm, S1, S2 Respiratory: Yes: CTA Bilaterally Gastrointestinal: Yes: Normal Bowel Sounds, Soft Neurological: Yes: Alert, Oriented. No: Loss of Sensation ...Motor Strength: WNL Labs: CBC, BMP 12/23/16 05:20 12/23/16 05:20 INR, PTT INR 1.83 (0.82-1.09) H 12/23/16 05:20 Problem List - Problems (1) Bradycardia Assessment/Plan: Heart rate improved, transfer to telemetry, discharge if cleared by cardiology Code(s): R00.1 - BRADYCARDIA, UNSPECIFIED (2) ESRD (end stage renal disease) Assessment/Plan: HD as per renal Code(s): N18.6 - END STAGE RENAL DISEASE
--- NOTE | 2016-12-23 09:51 | PN ---
Progress Note (short form) - Note Progress Note: PULM / CCM Pt seen & examined in the ICU. CA+OX3, NAD, OOB --> Chair. HR in the 80's Active Medications Amiodarone HCl (Cordarone -) 200 mg PO BID [facility] Last Admin: 12/23/16 09:44 Dose: 200 mg Insulin Aspart (Novolog Vial Sliding Scale -) 1 vial SQ ACHS [facility] PRN Reason: Protocol Last Admin: 12/23/16 16:38 Dose: 2 units Insulin Detemir (Levemir Vial) 16 units SQ DAILY [facility] Last Admin: 12/23/16 09:57 Dose: 16 units Lactulose (Cephulac (Oral Use)) 20 gm PO DAILY PRN PRN Reason: CONSTIPATION Last Admin: 12/23/16 10:37 Dose: 20 gm Levothyroxine Sodium (Synthroid -) 75 mcg PO DAILY@0700 [facility] Last Admin: 12/23/16 06:38 Dose: 75 mcg Midodrine (Proamatine -) 10 mg PO DAILY [facility] Last Admin: 12/23/16 12:40 Dose: 10 mg Oxycodone HCl (Roxicodone -) 10 mg PO BID PRN Last Admin: 12/23/16 07:39 Dose: 10 mg Polyethylene Glycol (Miralax (For Daily Use) -) 17 gm PO BID [facility] Last Admin: 12/23/16 09:47 Dose: Not Given Sevelamer Carbonate (Renvela -) 1,600 mg PO TIDCM [facility] Last Admin: 12/23/16 18:05 Dose: 1,600 mg Sucralfate (Carafate -) 1 gm PO BIDAC [facility] Last Admin: 12/23/16 16:37 Dose: 1 gm Warfarin Sodium (Coumadin -) 5 mg PO DAILY@1800 [facility] Last Admin: 12/23/16 18:05 Dose: 5 mg V/S Period Temp Pulse Resp BP Sys/Lopez Pulse Ox Last 24 Hr 97 F-97.6 F 52-68 17-20 82-113/44-90 98-100 Intake & Output 12/20/16 12/21/16 12/22/16 12/23/16 23:59 23:59 23:59 23:59 Intake Total 640 2280 540 620 Output Total 0 0 0 Balance 640 2280 540 620 Weight 76.289 kg 75.41 kg 78.5 kg 76.884 kg GEN: Middle aged man OOB --> chair in NAD pleasant but disheveled & googly eyed HEENT: PERRL, R strabismus, an-icteric, MMM PULM: CTAB CV: nml S1S2, RR, unable to appreciate any G/M/R ABD: + BS, disteneded but S/S, N/T X4Q, +ascites, EXT: + Pulses, WWPX4, chronic LE venous stasis changes, no edema NEURO: CA+OX3, RAYA, Follows all, (-) focal deficit CBC, BMP 12/23/16 05:20 12/23/16 05:20 CXR 12/23: NONE ASSESS: S/p Bradycardia ESRD on HD IDDM Hypotension with low EF AICD Ascites Afib PLAN: -FiO2 prn for an SpO2 > 92% -IS -Cont Coumadin -PPM -Cardiac Diet -FSs -SS prn -HD A/p -Sevelamer -BR -Pepcid (Renal Fail) -D/c --> Home -Transfer to [facility] Shaggy Rios, ACNP-BC [id number] PULM / CCM
[2016-12-23] MEDS: INSULIN DETEMIR 100 UNITS/ML MDV SQ SCH (09:57)
[2016-12-23] MEDS: LACTULOSE 20 GM/30 ML UDC (FOR ORAL USE ONLY) PO PRN (10:37)
[2016-12-23] MEDS ORDERED: PT OWN MED DRAWER 7, Y5N ONE (16:53)
[2016-12-23] MEDS: WARFARIN NA 5 MG TABLET (UD) PO SCH (18:05)
[2016-12-24] MEDS: SUCRALFATE 1 GM TABLET (FP) PO SCH ×2 (06:03→16:24)
[2016-12-24] MEDS: INSULIN SLIDING SCALE (NOVOLOG) 1 VIAL SQ SCH ×4 (06:03→21:55)
[2016-12-24] MEDS: LEVOTHYROXINE NA 75 MCG TABLET (FP) PO SCH (06:04)
[2016-12-24 06:29] LABS: MCH 28.7 pg (25.7-33.7); MCHC 31.4 g/dl (32.0-35.9); MEAN CELL VOLUME 91.4 fl (80-96); MEAN PLT VOLUME 9.5 fl (7.5-11.1); PLATELET COUNT 75 K/MM3 (134-434); RDW 18.3 % (11.9-15.9); WHITE BLOOD COUNT 6.1 K/mm3 (4.0-10.0)
[2016-12-24 06:34] LABS: INR 2.13 (0.82-1.09); PROTHROMBIN TIME (PATIENT) 23.8 SEC (9.98-11.88)
[2016-12-24 07:11] LABS: ANION GAP 12 (8-16); CALCIUM 8.1 mg/dL (8.5-10.1); CO2 31 mmol/L (21-32); CREATININE 5.8 mg/dL (0.7-1.3); GLUCOSE,RANDOM 207 mg/dL (74-106); MAGNESIUM 1.9 mg/dL (1.8-2.4)
[2016-12-24] MEDS: oxyCODONE HCL 5 MG TABLET PO PRN ×3 (07:35→19:47)
[2016-12-24] MEDS: SEVELAMER CARBONATE 800 MG TAB (FP) PO SCH ×3 (08:00→18:00)
[2016-12-24] MEDS: AMIODARONE HCL 200 MG TABLET (FP) PO SCH ×2 (09:05→21:55)
[2016-12-24] MEDS: POLYETHYLENE GLYCOL 3350 119 GM BTL PO SCH ×2 (09:06→21:55)
[2016-12-24] MEDS: INSULIN DETEMIR 100 UNITS/ML MDV SQ SCH (09:06)
[2016-12-24] MEDS: MIDODRINE HCL 5 MG TABLET PO SCH (09:07)
[2016-12-24] MEDS: LACTULOSE 20 GM/30 ML UDC (FOR ORAL USE ONLY) PO PRN (09:15)
--- NOTE | 2016-12-24 10:13 | PN ---
Progress Note (short form) - Note Progress Note: PULM / CCM Pt seen & examined in the ICU 24Hr -no events overnight -cont to wait for floor bed -pt relates one episode of rolly last night -no BM, wants change to percocet, has had constipation with Oxycodone Active Medications Amiodarone HCl (Cordarone -) 200 mg PO BID [facility] Last Admin: 12/23/16 09:44 Dose: 200 mg Insulin Aspart (Novolog Vial Sliding Scale -) 1 vial SQ ACHS [facility] PRN Reason: Protocol Last Admin: 12/23/16 16:38 Dose: 2 units Insulin Detemir (Levemir Vial) 16 units SQ DAILY [facility] Last Admin: 12/23/16 09:57 Dose: 16 units Lactulose (Cephulac (Oral Use)) 20 gm PO DAILY PRN PRN Reason: CONSTIPATION Last Admin: 12/23/16 10:37 Dose: 20 gm Levothyroxine Sodium (Synthroid -) 75 mcg PO DAILY@0700 [facility] Last Admin: 12/23/16 06:38 Dose: 75 mcg Midodrine (Proamatine -) 10 mg PO DAILY [facility] Last Admin: 12/23/16 12:40 Dose: 10 mg Oxycodone HCl (Roxicodone -) 10 mg PO BID PRN Last Admin: 12/23/16 07:39 Dose: 10 mg Polyethylene Glycol (Miralax (For Daily Use) -) 17 gm PO BID [facility] Last Admin: 12/23/16 09:47 Dose: Not Given Sevelamer Carbonate (Renvela -) 1,600 mg PO TIDCM [facility] Last Admin: 12/23/16 18:05 Dose: 1,600 mg Sucralfate (Carafate -) 1 gm PO BIDAC [facility] Last Admin: 12/23/16 16:37 Dose: 1 gm Warfarin Sodium (Coumadin -) 5 mg PO DAILY@1800 [facility] Last Admin: 12/23/16 18:05 Dose: 5 mg CBC, BMP 12/24/16 05:15 12/24/16 05:15 GEN: Middle aged man OOB --> chair in NAD HEENT: PERRL, R strabismus, an-icteric, MMM PULM: CTAB, AICD L chest CV: nml S1S2, RR, unable to appreciate any G/M/R ABD: + BS, disteneded but S/S, N/T X4Q, +ascites, EXT: + Pulses, WWPX4, chronic LE venous stasis changes, no edema NEURO: CA+OX3, RAYA, Follows all, (-) focal deficit CXR 12/24 none today ASSESS: S/p Bradycardia ESRD on HD IDDM Hypotension with low EF AICD Ascites Afib PLAN: -FiO2 prn for an SpO2 > 92% -IS -Cont Coumadin -PPM -Cardiac Diet -FSs -SS prn -HD per renal. -Sevelamer -BR -Pepcid (Renal Fail) -D/c --> Home -Ok for tele Jaquan Church, ACNP-BC [id number] PULM / CCM
[2016-12-24] MEDS ORDERED: OXYCODONE/APAP 5/325MG COMBO TABLET PO PRN (10:18)
[2016-12-24] MEDS ORDERED: oxyCODONE HCL 5 MG TABLET PO PRN (11:31)
[2016-12-24] MEDS ORDERED: ACETAMINOPHEN 325 MG TABLET (FP) PO PRN (11:31)
[2016-12-24] MEDS: ACETAMINOPHEN 325 MG TABLET (FP) PO PRN ×2 (13:46→19:48)
--- NOTE | 2016-12-24 13:49 | PN ---
Progress Note, Physician History of Present Illness: Hyperkalemia resolved as has bradyarrhythmia, no complaints. - Current Medication List Current Medications: Active Medications Acetaminophen (Tylenol -) 650 mg PO Q4H PRN PRN Reason: PAIN Last Admin: 12/24/16 13:46 Dose: 650 mg Amiodarone HCl (Cordarone -) 200 mg PO BID [facility] Last Admin: 12/24/16 09:05 Dose: 200 mg Insulin Aspart (Novolog Vial Sliding Scale -) 1 vial SQ ACHS [facility] PRN Reason: Protocol Last Admin: 12/24/16 10:52 Dose: 6 units Insulin Detemir (Levemir Vial) 16 units SQ DAILY [facility] Last Admin: 12/24/16 09:06 Dose: 16 units Lactulose (Cephulac (Oral Use)) 20 gm PO DAILY PRN PRN Reason: CONSTIPATION Last Admin: 12/24/16 09:15 Dose: 20 gm Levothyroxine Sodium (Synthroid -) 75 mcg PO DAILY@0700 [facility] Last Admin: 12/24/16 06:04 Dose: 75 mcg Midodrine (Proamatine -) 10 mg PO DAILY [facility] Last Admin: 12/24/16 09:07 Dose: Not Given Oxycodone HCl (Roxicodone -) 10 mg PO Q4H PRN PRN Reason: PAIN Last Admin: 12/24/16 13:45 Dose: 10 mg Polyethylene Glycol (Miralax (For Daily Use) -) 17 gm PO BID [facility] Last Admin: 12/24/16 09:06 Dose: Not Given Sevelamer Carbonate (Renvela -) 1,600 mg PO TIDCM [facility] Last Admin: 12/24/16 12:20 Dose: 1,600 mg Sucralfate (Carafate -) 1 gm PO BIDAC [facility] Last Admin: 12/24/16 06:03 Dose: 1 gm Warfarin Sodium (Coumadin -) 5 mg PO DAILY@1800 [facility] Last Admin: 12/23/16 18:05 Dose: 5 mg - Objective Vital Signs: Vital Signs Temperature 97.6 F 12/24/16 12:00 Pulse Rate 58 L 12/24/16 12:00 Respiratory Rate 19 12/24/16 12:00 Blood Pressure 85/53 12/24/16 12:00 O2 Sat by Pulse Oximetry (%) 100 12/24/16 08:35 Constitutional: Yes: No Distress, Calm Neck: Yes: Supple Cardiovascular: Yes: Regular Rate and Rhythm Respiratory: Yes: Regular, CTA Bilaterally, On Nasal O2 Gastrointestinal: Yes: Normal Bowel Sounds, Soft Edema: No Labs: CBC, BMP 12/24/16 05:15 12/24/16 05:15 INR, PTT INR 2.13 (0.82-1.09) H 12/24/16 05:15 Problem List - Problems (1) Diabetes mellitus Code(s): E11.9 - TYPE 2 DIABETES MELLITUS WITHOUT COMPLICATIONS Qualifiers: Diabetes mellitus type: type 1 Diabetes mellitus complication status: with kidney complications Diabetes mellitus complication detail: with chronic kidney disease Chronic kidney disease stage: on chronic dialysis Qualified Code(s): E10.22 - Type 1 diabetes mellitus with diabetic chronic kidney disease; N18.1 - Chronic kidney disease, stage 1 (2) Hyperkalemia Code(s): E87.5 - HYPERKALEMIA (3) Hypothyroidism Code(s): E03.9 - HYPOTHYROIDISM, UNSPECIFIED Qualifiers: Hypothyroidism type: acquired Qualified Code(s): E03.9 - Hypothyroidism, unspecified (4) Ischemic dilated cardiomyopathy Code(s): I25.5 - ISCHEMIC CARDIOMYOPATHY (5) S/P coronary artery stent placement Code(s): Z95.5 - PRESENCE OF CORONARY ANGIOPLASTY IMPLANT AND GRAFT (6) Atrial fibrillation Code(s): I48.91 - UNSPECIFIED ATRIAL FIBRILLATION Qualifiers: Atrial fibrillation type: persistent Qualified Code(s): I48.1 - Persistent atrial fibrillation (7) ESRD (end stage renal disease) Code(s): N18.6 - END STAGE RENAL DISEASE (8) S/P CABG (coronary artery bypass graft) Code(s): Z95.1 - PRESENCE OF AORTOCORONARY BYPASS GRAFT (9) ICD (implantable cardioverter-defibrillator) in place Code(s): Z95.810 - PRESENCE OF AUTOMATIC (IMPLANTABLE) CARDIAC DEFIBRILLATOR Assessment/Plan 1. Post hyperkalemia requiring urgent HD with bradycardia 2. CAD S/P PCI, CABG, angina 3. Atrial fibrillation, persistent with variable ventricular response and therapeutic INR 4. ESRD on HD 5. Ischemic dilated cardiomyopathy with pulm HTN 6. Diabetes Mellitus 7. COPD 8. Orthostatic hypotension 9. DM 10. h/o CVA PLAN: 1. Resumed Amiodarone 200 bid (home dose), device interrogation confirms normal fxn 2. Dose Coumadin per INR 3. HD as per renal 4. Midodrine 5 bid 5. May d/c home from CV-standpoint with f/u with Dr. Zachery Mccormick at [facility] as outpatient
--- NOTE | 2016-12-24 15:48 | DS ---
Physical Examination Vital Signs: Vital Signs Temperature 97.1 F L 12/24/16 14:00 Pulse Rate 54 L 12/24/16 14:00 Respiratory Rate 16 12/24/16 14:00 Blood Pressure 95/53 12/24/16 14:00 O2 Sat by Pulse Oximetry (%) 100 12/24/16 08:35 Findings/Remarks: Stable, back to baseline Constitutional: Yes: No Distress Neck: Yes: Supple Cardiovascular: Yes: Regular Rate and Rhythm, S1, S2 Respiratory: Yes: Regular, CTA Bilaterally Gastrointestinal: Yes: Normal Bowel Sounds, Soft Neurological: Yes: Alert, Oriented. No: Loss of Sensation ...Motor Strength: WNL Labs: CBC, BMP 12/24/16 05:15 12/24/16 05:15 Discharge Summary Reason For Visit: HYPERKALEMIA Current Active Problems Atrial fibrillation with rapid ventricular response (Acute) Bradycardia (Acute) Coronary artery disease (Acute) Demand ischemia (Acute) Diabetes mellitus (Acute) HTN (hypertension) (Acute) Hyperkalemia (Acute) Hypothyroidism (Acute) ICD (implantable cardioverter-defibrillator) discharge (Acute) ICD (implantable cardioverter-defibrillator) in place (Acute) Ischemic dilated cardiomyopathy (Acute) Precordial chest pain (Acute) S/P coronary artery stent placement (Acute) Systolic and diastolic CHF, acute on chronic (Acute) Ventricular tachycardia (Acute) Hospital Course: Improved, had bradycardia, phil resolved, cleared by cardiology Condition: Improved - Instructions Diet, Activity, Other Instructions: Renal diet Activity as tolerated Referrals: Mandeep Sutton MD [Primary Care Provider] - Jose Elias Wu MD [Staff Physician] - Disposition: HOME - Home Medications Comprehensive Discharge Medication List: Ambulatory Orders Levothyroxine [Synthroid -] 75 mcg PO DAILY 09/13/14 Sevelamer Carbonate [Renvela -] 1,600 mg PO TIDCM tab 04/29/16 Amiodarone HCl [Cordarone -] 200 mg PO BID #60 tablet 07/12/16 Warfarin Na [Coumadin -] 5 mg PO DAILY@1800 tablet 08/04/16 Insulin Regular [Novolin R Vial -] 0 units SQ TID 12/19/16 Sucralfate [Carafate -] 1 gm PO BID 12/19/16 Acetaminophen [Tylenol .Regular Strength -] 650 mg PO Q4H PRN #0 tablet Insulin Sliding Scale [Novolog Vial Sliding Scale -] 1 vial SQ ACHS units 12/24 Levothyroxine [Synthroid -] 75 mcg PO DAILY@0700 tablet 12/24/16 Midodrine HCl [Proamatine -] 10 mg PO DAILY tablet 12/24/16 Oxycodone HCl [Roxicodone -] 10 mg PO Q4H PRN #30 tablet MDD 6 12/24/16 Polyethylene Glycol 3350 [Miralax 119 gm Btl -] 17 gm PO BID bottle 12/24/16 Sevelamer Carbonate [Renvela -] 1,600 mg PO TIDCM tab 12/24/16 Sucralfate [Carafate -] 1 gm PO BIDAC tablet 12/24/16
[2016-12-24] MEDS ORDERED: PT OWN MED DRAWER 7, Y5N ONE (16:23)
[2016-12-24] MEDS ORDERED: ONDANSETRON 4 MG/2 ML VIAL IVPUSH PRN (17:48)
[2016-12-24] MEDS: WARFARIN NA 5 MG TABLET (UD) PO SCH (18:00)
--- NOTE | 2016-12-24 23:43 | PN ---
Progress Note, Physician Chief Complaint: Cleared by cardiology, but refuses to be discharged, reports difficulty ambulating and lack of resources at home - Current Medication List Current Medications: Active Medications Acetaminophen (Tylenol -) 650 mg PO Q4H PRN PRN Reason: PAIN Last Admin: 12/24/16 19:48 Dose: 650 mg Amiodarone HCl (Cordarone -) 200 mg PO BID [facility] Last Admin: 12/24/16 21:55 Dose: 200 mg Insulin Aspart (Novolog Vial Sliding Scale -) 1 vial SQ ACHS [facility] PRN Reason: Protocol Last Admin: 12/24/16 21:55 Dose: Not Given Insulin Detemir (Levemir Vial) 16 units SQ DAILY [facility] Last Admin: 12/24/16 09:06 Dose: 16 units Lactulose (Cephulac (Oral Use)) 20 gm PO DAILY PRN PRN Reason: CONSTIPATION Last Admin: 12/24/16 09:15 Dose: 20 gm Levothyroxine Sodium (Synthroid -) 75 mcg PO DAILY@0700 [facility] Last Admin: 12/24/16 06:04 Dose: 75 mcg Midodrine (Proamatine -) 10 mg PO DAILY [facility] Last Admin: 12/24/16 09:07 Dose: Not Given Ondansetron HCl (Zofran Injection) 4 mg IVPUSH Q4H PRN PRN Reason: NAUSEA AND/OR VOMITING Stop: 12/25/16 05:49 Last Admin: 12/24/16 18:00 Dose: 4 mg Oxycodone HCl (Roxicodone -) 10 mg PO Q4H PRN PRN Reason: PAIN Last Admin: 12/24/16 19:47 Dose: 10 mg Polyethylene Glycol (Miralax (For Daily Use) -) 17 gm PO BID [facility] Last Admin: 12/24/16 21:55 Dose: Not Given Sevelamer Carbonate (Renvela -) 1,600 mg PO TIDCM [facility] Last Admin: 12/24/16 18:00 Dose: 1,600 mg Sucralfate (Carafate -) 1 gm PO BIDAC [facility] Last Admin: 12/24/16 16:24 Dose: 1 gm Warfarin Sodium (Coumadin -) 5 mg PO DAILY@1800 [facility] Last Admin: 12/24/16 18:00 Dose: 5 mg - Objective Vital Signs: Vital Signs Temperature 96.8 F L 12/24/16 22:00 Pulse Rate 54 L 12/24/16 22:00 Respiratory Rate 16 12/24/16 22:00 Blood Pressure 80/66 12/24/16 20:00 O2 Sat by Pulse Oximetry (%) 100 12/24/16 20:43 Constitutional: Yes: No Distress Neck: Yes: Supple Cardiovascular: Yes: Regular Rate and Rhythm, S1, S2 Respiratory: Yes: Regular, CTA Bilaterally Gastrointestinal: Yes: Normal Bowel Sounds, Soft Neurological: Yes: Alert, Oriented. No: Loss of Sensation ...Motor Strength: WNL Labs: CBC, BMP 12/24/16 05:15 12/24/16 05:15 INR, PTT INR 2.13 (0.82-1.09) H 12/24/16 05:15 Problem List - Problems (1) Bradycardia Assessment/Plan: Resolved Code(s): R00.1 - BRADYCARDIA, UNSPECIFIED (2) ESRD (end stage renal disease) Assessment/Plan: HD as per renal Code(s): N18.6 - END STAGE RENAL DISEASE (3) Ambulatory dysfunction Assessment/Plan: Will get PT eval. clinical team manager to review discharge planning Code(s): R26.2 - DIFFICULTY IN WALKING, NOT ELSEWHERE CLASSIFIED
[2016-12-25] MEDS: oxyCODONE HCL 5 MG TABLET PO PRN ×3 (03:39→18:27)
[2016-12-25] MEDS: ACETAMINOPHEN 325 MG TABLET (FP) PO PRN (03:40)
[2016-12-25] MEDS: SUCRALFATE 1 GM TABLET (FP) PO SCH ×2 (06:03→18:31)
[2016-12-25] MEDS: INSULIN SLIDING SCALE (NOVOLOG) 1 VIAL SQ SCH ×3 (06:03→18:31)
[2016-12-25] MEDS: LEVOTHYROXINE NA 75 MCG TABLET (FP) PO SCH (06:04)
[2016-12-25 06:23] LABS: MCH 28.8 pg (25.7-33.7); MCHC 31.8 g/dl (32.0-35.9); MEAN CELL VOLUME 90.3 fl (80-96); MEAN PLT VOLUME 9.9 fl (7.5-11.1); PLATELET COUNT 79 K/MM3 (134-434); WHITE BLOOD COUNT 6.5 K/mm3 (4.0-10.0)
[2016-12-25 06:32] LABS: INR 2.31 (0.82-1.09); PROTHROMBIN TIME (PATIENT) 25.8 SEC (9.98-11.88)
[2016-12-25 06:47] LABS: ALBUMIN 3.1 g/dl (3.4-5.0); ANION GAP 16 (8-16); CO2 26 mmol/L (21-32); GLUCOSE,RANDOM 205 mg/dL (74-106); MAGNESIUM 2.1 mg/dL (1.8-2.4)
[2016-12-25 06:56] LABS: ALK PHOS 91 U/L (45-117); BILIRUBIN,TOTAL 0.6 mg/dL (0.2-1.0); PHOSPHOROUS 6.5 mg/dL (2.5-4.9); SGOT/AST 28 U/L (15-37); SGPT/ALT 33 U/L (12-78); TOT PROT 6.8 g/dl (6.4-8.2)
[2016-12-25 06:59] LABS: CREATININE 8.2 mg/dL (0.7-1.3)
--- NOTE | 2016-12-25 07:04 | PN ---
Physical Exam: SUBJECTIVE: Patient seen and examined c/o nausea yesterday afternoon, tolerating coffee and breakfast well this morning. OBJECTIVE: Vital Signs Period Temp Pulse Resp BP Sys/Lopez Pulse Ox Last 24 Hr 96.8 F-97.8 F 49-58 16-22 80-118/46-82 100-100 EYES: PERRL, extraocular movements intact, sclera anicteric, conjunctiva clear. ENT: oropharynx clear without exudates, moist mucous membranes. LUNGS: CTAB, quiet at bases HEART: Regular rate and rhythm, S1, S2 without murmur, rub or gallop. ICD placed in left upper chest ABDOMEN: Soft, nontender, +distended, +ascitis, normoactive bowel sounds, no guarding EXTREMITIES: right arm with palpable thrill, 2+ radial/DP pulses, warm, well- perfused, no edema. 1x1cm scab on left and right heel - no discharge, no surrounding erythema, no tenderness Laboratory Results - last 24 hr 12/24/16 12/24/16 12/24/16 05:15 05:43 10:49 WBC RBC Hgb Hct MCV MCHC RDW Plt Count MPV INR Sodium 137 Potassium 4.5 Chloride 94 L Carbon Dioxide 31 Anion Gap 12 BUN 45 H Creatinine 5.8 H Creat Clearance w eGFR POC Glucometer 183.64602 258.03223 Random Glucose 207 H Calcium 8.1 L Phosphorus 5.0 H D Magnesium 1.9 Total Bilirubin AST ALT Alkaline Phosphatase Total Protein Albumin 12/24/16 12/24/16 12/25/16 16:17 21:45 05:04 WBC RBC Hgb Hct MCV MCHC RDW Plt Count MPV INR Sodium Potassium Chloride Carbon Dioxide Anion Gap BUN Creatinine Creat Clearance w eGFR POC Glucometer 185.45912 127.83578 252.45388 Random Glucose Calcium Phosphorus Magnesium Total Bilirubin AST ALT Alkaline Phosphatase Total Protein Albumin 12/25/16 12/25/16 12/25/16 05:10 05:10 05:10 WBC 6.5 RBC 3.62 L Hgb 10.4 L Hct 32.7 L MCV 90.3 MCHC 31.8 L RDW 18.0 H Plt Count 79 L MPV 9.9 INR 2.31 H Sodium 133 L Potassium 5.4 H Chloride 91 L Carbon Dioxide 26 Anion Gap 16 BUN 76 H D Creatinine 8.2 H* D Creat Clearance w eGFR 6.68 POC Glucometer Random Glucose 205 H Calcium 8.0 L Phosphorus 6.5 H D Magnesium 2.1 Total Bilirubin 0.6 D AST 28 D ALT 33 D Alkaline Phosphatase 91 Total Protein 6.8 Albumin 3.1 L Active Medications Generic Name Dose Route Start Last Admin Trade Name Freq PRN Reason Stop Dose Admin Acetaminophen 650 mg 12/24/16 11:34 12/25/16 03:40 Tylenol - PO 650 mg Q4H PRN Administration PAIN Amiodarone HCl 200 mg 12/22/16 22:00 12/24/16 21:55 Cordarone - PO 200 mg BID PIPER Administration Insulin Aspart 1 vial 12/22/16 16:30 12/25/16 06:03 Novolog Vial Sliding Scale - SQ 6 units ACHS PIPER Administration Protocol Insulin Detemir 16 units 12/23/16 10:00 12/24/16 09:06 Levemir Vial SQ 16 units DAILY PIPER Administration Lactulose 20 gm 12/22/16 15:14 12/24/16 09:15 Cephulac (Oral Use) PO 20 gm DAILY PRN Administration CONSTIPATION Levothyroxine Sodium 75 mcg 12/23/16 07:00 12/25/16 06:04 Synthroid - PO 75 mcg DAILY@0700 PIPER Administration Midodrine 10 mg 12/23/16 10:00 12/24/16 09:07 Proamatine - PO Not Given DAILY PIPER Oxycodone HCl 10 mg 12/24/16 11:35 12/25/16 03:39 Roxicodone - PO 10 mg Q4H PRN Administration PAIN Polyethylene Glycol 17 gm 12/22/16 22:00 12/24/16 21:55 Miralax (For Daily Use) - PO Not Given BID PIPER Sevelamer Carbonate 1,600 mg 12/22/16 17:30 12/24/16 18:00 Renvela - PO 1,600 mg TIDCM PIPER Administration Sucralfate 1 gm 12/22/16 16:30 12/25/16 06:03 Carafate - PO 1 gm BIDAC PIPER Administration Warfarin Sodium 5 mg 12/22/16 18:00 12/24/16 18:00 Coumadin - PO 5 mg DAILY@1800 PIPER Administration ASSESSMENT/PLAN: 61 yr old man with COPD, CAD s/p CABG and AICD placement, CVA(w/o residual deficits), systolic CHF, DM, ESRD on HD, presented to ED with profound weakness and difficulty walking admitted to ICU for symptomatic hyperkalemia requiring urgent hemodialysis. Renal symptomatic hyperkalemia - likely caused by dietary indiscretions, improved with dialysis - dialysis today - renvela 1600mg po TIDCM piper - midodrine 10mg po with diaysis Cardiovascular Afib - currently in sinus amiodarone 200mg po BID - [employer] rep investigated device - device is functioning normally, it is set to be ventricularily paced at 40bpm and pt's hx shows him to be in this rhythm 25% of the time. - As per Dr. Wu, no further cardiac work-up required at this time, patient can follow-up as outpatient Midodrine 10 mg po with dialysis anticoag with wardarin 5 mg po daily, INR 2.3 Dermatology - heel pads for heel ulcers Musculoskeletal - physical therapy for gait evaluation - encourage OOB- patient walking around unit with cane, steady gait Endocrine DM II NISS and BGM NISS, levemir 16units subq daily Hypothyroid levothyroxine 75mcg BID GI carafate 1gm po BID lactulose prn Dvt; on warfarin Diet: renal diet Dispo: patient can be discharged after dialysis today and follow-up with PCP as outpatient Visit type - Emergency Visit Emergency Visit: No - New Patient This patient is new to me today: No - Critical Care Critical Care patient: Yes Total Critical Care Time (in minutes): 36 Critical Care Statement: The care of this patient involved high complexity decision making to prevent further life threatening deterioration of the patient 's condition and/or to evalute & treat vital organ system(s) failure or risk of failure.
[2016-12-25] MEDS ORDERED: PT OWN MED DRAWER 7, Y5N ONE ×2 (08:34→18:30)
--- NOTE | 2016-12-25 08:54 | PN ---
Progress Note (short form) - Note Progress Note: CBC, BMP 12/25/16 05:10 12/25/16 05:10 Abnormal Lab Results 12/25/16 12/25/16 12/25/16 05:10 05:10 05:10 RBC 3.62 L Hgb 10.4 L Hct 32.7 L MCHC 31.8 L RDW 18.0 H Plt Count 79 L INR 2.31 H Sodium 133 L Potassium 5.4 H Chloride 91 L BUN 76 H D Creatinine 8.2 H* D Random Glucose 205 H Calcium 8.0 L Phosphorus 6.5 H D Albumin 3.1 L S1S2 RRR Lungs cta Abd+ascites no edema aaox3 Imp Bradycardia Hyperkalemia with weakness ESRD IDDM Hypotension with low EF AICD Ascites Afib Plan HR stable over the weekend will f/up with dr. Kelley for evaluatin for PPM HD today, then dc planning with VNS consults appreciated Problem List - Problems (1) Coronary artery disease Code(s): I25.10 - ATHSCL HEART DISEASE OF [place] CORONARY ARTERY W/O ANG PCTRS Qualifiers: Coronary Disease-Associated Artery/Lesion type: [place] artery [place] vs. transplanted heart: [place] heart Associated angina: without angina Qualified Code(s): I25.10 - Atherosclerotic heart disease of [place] coronary artery without angina pectoris (2) Diabetes mellitus Code(s): E11.9 - TYPE 2 DIABETES MELLITUS WITHOUT COMPLICATIONS Qualifiers: Diabetes mellitus type: type 1 Diabetes mellitus complication status: with kidney complications Diabetes mellitus complication detail: with chronic kidney disease Chronic kidney disease stage: on chronic dialysis Qualified Code(s): E10.22 - Type 1 diabetes mellitus with diabetic chronic kidney disease; N18.1 - Chronic kidney disease, stage 1 (3) Hyperkalemia Code(s): E87.5 - HYPERKALEMIA (4) Hypothyroidism Code(s): E03.9 - HYPOTHYROIDISM, UNSPECIFIED Qualifiers: Hypothyroidism type: acquired Qualified Code(s): E03.9 - Hypothyroidism, unspecified (5) ICD (implantable cardioverter-defibrillator) discharge Code(s): Z45.02 - ENCNTR FOR ADJUST AND MGMT OF AUTOMATIC IMPLNTBL CARD DEFIB (6) Ischemic dilated cardiomyopathy Code(s): I25.5 - ISCHEMIC CARDIOMYOPATHY (7) Ascites Code(s): R18.8 - OTHER ASCITES Qualifiers: Ascites type: other type Qualified Code(s): R18.8 - Other ascites (8) Atrial fibrillation Code(s): I48.91 - UNSPECIFIED ATRIAL FIBRILLATION Qualifiers: Atrial fibrillation type: persistent Qualified Code(s): I48.1 - Persistent atrial fibrillation (9) Cirrhosis Code(s): K74.60 - UNSPECIFIED CIRRHOSIS OF LIVER Qualifiers: Hepatic cirrhosis type: unspecified hepatic cirrhosis Ascites presence : with ascites Qualified Code(s): K74.60 - Unspecified cirrhosis of liver (10) ESRD (end stage renal disease) Code(s): N18.6 - END STAGE RENAL DISEASE (11) S/P CABG (coronary artery bypass graft) Code(s): Z95.1 - PRESENCE OF AORTOCORONARY BYPASS GRAFT
[2016-12-25] MEDS: SEVELAMER CARBONATE 800 MG TAB (FP) PO SCH ×3 (08:59→18:31)
--- NOTE | 2016-12-25 10:05 | PN ---
Progress Note, Physician History of Present Illness: Hyperkalemia resolved as has bradyarrhythmia, no complaints. - Current Medication List Current Medications: Active Medications Acetaminophen (Tylenol -) 650 mg PO Q4H PRN PRN Reason: PAIN Last Admin: 12/25/16 03:40 Dose: 650 mg Amiodarone HCl (Cordarone -) 200 mg PO BID [facility] Last Admin: 12/24/16 21:55 Dose: 200 mg Insulin Aspart (Novolog Vial Sliding Scale -) 1 vial SQ ACHS [facility] PRN Reason: Protocol Last Admin: 12/25/16 06:03 Dose: 6 units Insulin Detemir (Levemir Vial) 16 units SQ DAILY [facility] Last Admin: 12/24/16 09:06 Dose: 16 units Lactulose (Cephulac (Oral Use)) 20 gm PO DAILY PRN PRN Reason: CONSTIPATION Last Admin: 12/24/16 09:15 Dose: 20 gm Levothyroxine Sodium (Synthroid -) 75 mcg PO DAILY@0700 [facility] Last Admin: 12/25/16 06:04 Dose: 75 mcg Midodrine (Proamatine -) 10 mg PO DAILY [facility] Last Admin: 12/24/16 09:07 Dose: Not Given Oxycodone HCl (Roxicodone -) 10 mg PO Q4H PRN PRN Reason: PAIN Last Admin: 12/25/16 03:39 Dose: 10 mg Polyethylene Glycol (Miralax (For Daily Use) -) 17 gm PO BID [facility] Last Admin: 12/24/16 21:55 Dose: Not Given Sevelamer Carbonate (Renvela -) 1,600 mg PO TIDCM [facility] Last Admin: 12/25/16 08:59 Dose: 1,600 mg Sucralfate (Carafate -) 1 gm PO BIDAC [facility] Last Admin: 12/25/16 06:03 Dose: 1 gm Warfarin Sodium (Coumadin -) 2.5 mg PO ONCE@1800 ONE Stop: 12/25/16 18:01 - Objective Vital Signs: Vital Signs Temperature 96.8 F L 12/25/16 05:29 Pulse Rate 59 L 12/25/16 08:16 Respiratory Rate 18 12/25/16 08:16 Blood Pressure 90/50 12/25/16 08:16 O2 Sat by Pulse Oximetry (%) 100 12/24/16 20:43 Constitutional: Yes: No Distress, Calm Neck: Yes: Supple Cardiovascular: Yes: Pulse Irregular Respiratory: Yes: Regular, CTA Bilaterally Gastrointestinal: Yes: Normal Bowel Sounds, Soft Edema: No Labs: CBC, BMP 12/25/16 05:10 12/25/16 05:10 INR, PTT INR 2.31 (0.82-1.09) H 12/25/16 05:10 - ....Imaging EKG: Report Reviewed (Tele: SR) Problem List - Problems (1) Diabetes mellitus Code(s): E11.9 - TYPE 2 DIABETES MELLITUS WITHOUT COMPLICATIONS Qualifiers: Diabetes mellitus type: type 1 Diabetes mellitus complication status: with kidney complications Diabetes mellitus complication detail: with chronic kidney disease Chronic kidney disease stage: on chronic dialysis Qualified Code(s): E10.22 - Type 1 diabetes mellitus with diabetic chronic kidney disease; N18.1 - Chronic kidney disease, stage 1 (2) Hyperkalemia Code(s): E87.5 - HYPERKALEMIA (3) Hypothyroidism Code(s): E03.9 - HYPOTHYROIDISM, UNSPECIFIED Qualifiers: Hypothyroidism type: acquired Qualified Code(s): E03.9 - Hypothyroidism, unspecified (4) Ischemic dilated cardiomyopathy Code(s): I25.5 - ISCHEMIC CARDIOMYOPATHY (5) S/P coronary artery stent placement Code(s): Z95.5 - PRESENCE OF CORONARY ANGIOPLASTY IMPLANT AND GRAFT (6) Atrial fibrillation Code(s): I48.91 - UNSPECIFIED ATRIAL FIBRILLATION Qualifiers: Atrial fibrillation type: persistent Qualified Code(s): I48.1 - Persistent atrial fibrillation (7) ESRD (end stage renal disease) Code(s): N18.6 - END STAGE RENAL DISEASE (8) S/P CABG (coronary artery bypass graft) Code(s): Z95.1 - PRESENCE OF AORTOCORONARY BYPASS GRAFT (9) ICD (implantable cardioverter-defibrillator) in place Code(s): Z95.810 - PRESENCE OF AUTOMATIC (IMPLANTABLE) CARDIAC DEFIBRILLATOR Assessment/Plan 1. Post hyperkalemia requiring urgent HD with bradycardia 2. CAD S/P PCI, CABG, angina 3. Atrial fibrillation, persistent with variable ventricular response and therapeutic INR 4. ESRD on HD 5. Ischemic dilated cardiomyopathy with pulm HTN s/p ICD 6. Diabetes Mellitus 7. COPD 8. Orthostatic hypotension 9. DM 10. h/o CVA PLAN: 1. Continue Amiodarone 200 bid (home dose), device interrogation confirms normal fxn 2. Dose Coumadin per INR 3. HD as per renal 4. Midodrine 5 bid 5. May d/c home from CV-standpoint with f/u with Dr. Zachery Mccormick at [facility] as outpatient
[2016-12-25] MEDS: INSULIN DETEMIR 100 UNITS/ML MDV SQ SCH (10:20)
[2016-12-25] MEDS: AMIODARONE HCL 200 MG TABLET (FP) PO SCH (10:20)
[2016-12-25] MEDS: MIDODRINE HCL 5 MG TABLET PO SCH (10:21)
--- NOTE | 2016-12-25 11:15 | PN ---
Progress Note (short form) - Note Progress Note: RENAL 61 with severe lv dysf I believe has an AICD HR in 50s K 5.4 Will dialyze now hips 20 NR 3 hr k2 ca2.5 target 2.5 kg Midodrine 10 pre HD Benadryl 25 DC on po kayexalate 15 gm mon and fri Go to his regular sched tue Increase renagel to 3 TID with meals
[2016-12-25] MEDS: POLYETHYLENE GLYCOL 3350 119 GM BTL PO SCH (12:38)
[2016-12-25 14:47] VITALS: TEMP 98.4
--- NOTE | 2016-12-25 15:48 | PN ---
Teaching Attending Note Name of Resident: Rudy Hahn ATTENDING PHYSICIAN STATEMENT I saw and evaluated the patient. I reviewed the resident's note and discussed the case with the resident. I agree with the resident's findings and plan as documented. SUBJECTIVE: Patient seen and examined in the ICU. Awake and alert. (+) nausea. Denies shortness of breath or chest pain. Overall HR better. Intake & Output 12/22/16 12/23/16 12/24/16 12/25/16 23:59 23:59 23:59 23:59 Intake Total 540 770 900 850 Output Total 0 0 0 0 Balance 540 770 900 850 Weight 173 lb 1 oz 169 lb 8 oz 167 lb 6.4 oz 171 lb Last Vital Signs Temp Pulse Resp BP Pulse Ox 98.4 F 62 18 96/48 100 12/25/16 14:25 12/25/16 15:25 12/25/16 15:25 12/25/16 15:25 12/24/16 20:43 Active Medications Acetaminophen (Tylenol -) 650 mg PO Q4H PRN PRN Reason: PAIN Last Admin: 12/25/16 03:40 Dose: 650 mg Amiodarone HCl (Cordarone -) 200 mg PO BID [facility]PLAC[facility] BY [facility] Last Admin: 12/25/16 10:20 Dose: 200 mg Insulin Aspart (Novolog Vial Sliding Scale -) 1 vial SQ ACHS REPLACED BY [facility] PRN Reason: Protocol Last Admin: 12/25/16 12:03 Dose: 8 units Insulin Detemir (Levemir Vial) 16 units SQ DAILY REPLACED BY [facility] Last Admin: 12/25/16 10:20 Dose: 16 units Lactulose (Cephulac (Oral Use)) 20 gm PO DAILY PRN PRN Reason: CONSTIPATION Last Admin: 12/24/16 09:15 Dose: 20 gm Levothyroxine Sodium (Synthroid -) 75 mcg PO DAILY@0700 REPLACED BY [facility] Last Admin: 12/25/16 06:04 Dose: 75 mcg Midodrine (Proamatine -) 5 mg PO BID-MID REPLACED BY [facility] Oxycodone HCl (Roxicodone -) 10 mg PO Q4H PRN PRN Reason: PAIN Last Admin: 12/25/16 10:31 Dose: 10 mg Polyethylene Glycol (Miralax (For Daily Use) -) 17 gm PO BID [facility]PLACED BY [facility] Last Admin: 12/25/16 12:38 Dose: Not Given Sevelamer Carbonate (Renvela -) 1,600 mg PO TIDCM REPLACED BY [facility] Last Admin: 12/25/16 12:38 Dose: 1,600 mg Sucralfate (Carafate -) 1 gm PO BIDAC REPLACED BY [facility] Last Admin: 12/25/16 06:03 Dose: 1 gm Warfarin Sodium (Coumadin -) 2.5 mg PO ONCE@1800 ONE Stop: 12/25/16 18:01 Gen: NAD at rest Heart: RRR Lung: decreased breath sounds at the bases Abd: soft, nontender Ext: no edema Laboratory Results - last 24 hr 12/24/16 12/24/16 12/25/16 16:17 21:45 05:04 WBC RBC Hgb Hct MCV MCHC RDW Plt Count MPV INR Sodium Potassium Chloride Carbon Dioxide Anion Gap BUN Creatinine Creat Clearance w eGFR POC Glucometer 185.35350 127.60790 252.56003 Random Glucose Calcium Phosphorus Magnesium Total Bilirubin AST ALT Alkaline Phosphatase Total Protein Albumin 12/25/16 12/25/16 12/25/16 05:10 05:10 05:10 WBC 6.5 RBC 3.62 L Hgb 10.4 L Hct 32.7 L MCV 90.3 MCHC 31.8 L RDW 18.0 H Plt Count 79 L MPV 9.9 INR 2.31 H Sodium 133 L Potassium 5.4 H Chloride 91 L Carbon Dioxide 26 Anion Gap 16 BUN 76 H D Creatinine 8.2 H* D Creat Clearance w eGFR 6.68 POC Glucometer Random Glucose 205 H Calcium 8.0 L Phosphorus 6.5 H D Magnesium 2.1 Total Bilirubin 0.6 D AST 28 D ALT 33 D Alkaline Phosphatase 91 Total Protein 6.8 Albumin 3.1 L 12/25/16 11:50 WBC RBC Hgb Hct MCV MCHC RDW Plt Count MPV INR Sodium Potassium Chloride Carbon Dioxide Anion Gap BUN Creatinine Creat Clearance w eGFR POC Glucometer [phone] Random Glucose Calcium Phosphorus Magnesium Total Bilirubin AST ALT Alkaline Phosphatase Total Protein Albumin ASSESSMENT AND PLAN: Hyperkalemia requiring urgent HD ESRD on HD CAD s/p CABG Atrial Fibrillation COPD HTN DM h/o CVA LV Systolic Dysfunction Pulmonary HTN - HD per renal - continue anticoagulation - May need paracentesis Dr Fuller
[2016-12-25] MEDS ORDERED: MIDODRINE HCL 5 MG TABLET PO SCH (18:00)
[2016-12-25] MEDS ORDERED: WARFARIN NA 2.5 MG TABLET (FP) PO ONE (18:00)
[2016-12-25 18:55] VITALS: BP 91/42; PULSE 55
--- NOTE | 2016-12-27 12:01 | DS ---
Physical Examination Vital Signs: Vital Signs Temperature 98.4 F 12/25/16 14:25 Pulse Rate 55 L 12/25/16 18:00 Respiratory Rate 20 12/25/16 18:00 Blood Pressure 91/42 12/25/16 18:00 O2 Sat by Pulse Oximetry (%) 100 12/24/16 20:43 Constitutional: Yes: Calm Eyes: Yes: EOM Intact HENT: Yes: Normocephalic Neck: Yes: Trachea Midline Cardiovascular: Yes: Regular Rate and Rhythm Respiratory: Yes: CTA Bilaterally Gastrointestinal: Yes: Normal Bowel Sounds, Soft, Ascites Edema: No Peripheral Pulses WNL: Yes Labs: CBC, BMP 12/25/16 05:10 12/25/16 05:10 Discharge Summary Reason For Visit: HYPERKALEMIA Current Active Problems Atrial fibrillation with rapid ventricular response (Acute) Coronary artery disease (Acute) Demand ischemia (Acute) Diabetes mellitus (Acute) HTN (hypertension) (Acute) Hypothyroidism (Acute) ICD (implantable cardioverter-defibrillator) discharge (Acute) Ischemic dilated cardiomyopathy (Acute) Precordial chest pain (Acute) S/P coronary artery stent placement (Acute) Systolic and diastolic CHF, acute on chronic (Acute) Ventricular tachycardia (Acute) Hospital Course: Admitted for symptomatic hyperkalemia, which resolved after Hemodialysis. Episodes of bradycardia, asymptomatic, was monitored withotu adverse effects. HR, BP has been stable for couple days now, medically stable to ia home with close outpt f/up and also for f/up with cardiology for possible elective PPM placement. Condition: Improved - Instructions Diet, Activity, Other Instructions: Renal diet Activity as tolerated warfarin resume dose as before admission f/up with on Sunday Referrals: Mandeep Sutton MD [Primary Care Provider] - Jose Elias Wu MD [Staff Physician] - Disposition: VNS/HOME HEALTH CARE - Home Medications Comprehensive Discharge Medication List: Ambulatory Orders Levothyroxine [Synthroid -] 75 mcg PO DAILY 09/13/14 Insulin Regular [Novolin R Vial -] 0 units SQ TID 12/19/16 Sucralfate [Carafate -] 1 gm PO BID 12/19/16 Acetaminophen [Tylenol .Regular Strength -] 650 mg PO Q4H PRN #0 tablet Insulin Sliding Scale [Novolog Vial Sliding Scale -] 1 vial SQ ACHS units 12/24 Levothyroxine [Synthroid -] 75 mcg PO DAILY@0700 tablet 12/24/16 Midodrine HCl [Proamatine -] 10 mg PO DAILY tablet 12/24/16 Oxycodone HCl [Roxicodone -] 10 mg PO Q4H PRN #30 tablet MDD 6 12/24/16 Polyethylene Glycol 3350 [Miralax 119 gm Btl -] 17 gm PO BID bottle 12/24/16 Sucralfate [Carafate -] 1 gm PO BIDAC tablet 12/24/16 Amiodarone HCl [Cordarone -] 200 mg PO DAILY #30 tablet 12/25/16 Ferric Citrate [Auryxia] 3 tablet PO TIDCM #90 tablet 12/25/16 Sodium Polystyrene Sulfonate [Kayexalate -] 15 gm PO DAILY #10 dose 12/25/16 Warfarin Na [Coumadin -] 5 mg PO DAILY@1800 #0 tablet 12/25/16
== END 2016-12-25 19:43 | disposition home health service (06) | DRG 640 ==
LOC: JER 16:31 → JERBED 18:43 → JICU 23:13
PROVIDERS: ADMIT Internal Medicine; ATTEND Internal Medicine
PROC: 5A1D60Z (ICD-10-PCS; principal; 2016-12-25)
DX: E87.5 Hyperkalemia (principal); N18.6 End stage renal disease; I48.1 Persistent atrial fibrillation; R18.8 Other ascites; I13.2 Hypertensive heart and chronic kidney disease with heart failure and with stage 5 chronic kidney disease, or end stage renal disease; E03.9 Hypothyroidism, unspecified; R00.1 Bradycardia, unspecified; I25.119 Atherosclerotic heart disease of native coronary artery with unspecified angina pectoris; Z95.1 Presence of aortocoronary bypass graft; Z98.61 Coronary angioplasty status; I27.2 Other secondary pulmonary hypertension; Z86.73 Personal history of transient ischemic attack (TIA), and cerebral infarction without residual deficits; I25.5 Ischemic cardiomyopathy; Z95.810 Presence of automatic (implantable) cardiac defibrillator; J44.9 Chronic obstructive pulmonary disease, unspecified; I95.1 Orthostatic hypotension; E11.22 Type 2 diabetes mellitus with diabetic chronic kidney disease; I50.9 Heart failure, unspecified; Z99.2 Dependence on renal dialysis; K74.60 Unspecified cirrhosis of liver
CPT/HCPCS: 36415; 71010-TC; 80048; 80053; 82550; 83735; 84100; 84132; 84443; 84484; 85025; 85027; 85610; 85730; 86704; 86706; 86708; 86803; 87340; 93005; 93010; 99285-25

== ENCOUNTER 2017-01-21 00:30 | Inpatient (IN) | payer OTHER ==
--- NOTE | 2017-01-21 01:47 | PDOC ---
History of Present Illness - General Chief Complaint: Weakness Stated Complaint: WEAKNESS,DIZZINESS Time Seen by Provider: 01/21/17 00:47 History Source: Patient Exam Limitations: No Limitations - History of Present Illness Initial Comments: 01/21/17 01:41 61yo Male patient w/ PmHx: ESRD on Hemodialysis (Sun, , Sun), COPD, CAD s/ p CABG, CVA, CHF, IDDM, HTN, HLD presents to ED with Sob/Diff breathing today. Patient states he was receiving dialysis when it was stopped and patient sent to ED for evaluation. Patient seen 12/19/2016 for same symptoms and found to be hyperkalemic. Associated CP. Denies any other complaints at this time. Past History - Travel Traveled outside of the country in the last 30 days: No Close contact w/someone who was outside of country & ill: No - Past Medical History Allergies/Adverse Reactions: Allergies Allergy/AdvReac Type Severity Reaction Status Date / Time No Known Drug Allergies Allergy Verified 01/21/17 00:43 Home Medications: Ambulatory Orders Insulin Regular [Novolin R Vial -] 0 units SQ TID 12/19/16 Sucralfate [Carafate -] 1 gm PO BID 12/19/16 Levothyroxine [Synthroid -] 75 mcg PO DAILY@0700 tablet 12/24/16 Midodrine HCl [Proamatine -] 10 mg PO DAILY tablet 12/24/16 Oxycodone HCl [Roxicodone -] 10 mg PO Q4H PRN #30 tablet MDD 6 12/24/16 Polyethylene Glycol 3350 [Miralax 119 gm Btl -] 17 gm PO BID bottle 12/24/16 Amiodarone HCl [Cordarone -] 200 mg PO DAILY #30 tablet 12/25/16 Warfarin Na [Coumadin -] 5 mg PO DAILY@1800 #0 tablet 12/25/16 Anemia: Yes Asthma: Yes (HX BRONCHITIS, COPD) Cancer: No Cardiac Disorders: Yes (S/P open heart SX c/ bypass, stent placement) CVA: Yes (no residual) COPD: No CHF: Yes (CAD) Dementia: No Diabetes: Yes Dialysis: Yes (MON-WED SUN) GI Disorders: Yes (reflux) Disorders: Yes (ESRD-DIALYSIS ,,SUN) HTN: Yes Hypercholesterolemia: Yes Liver Disease: No Suicide Attempt (Hx): No Seizures: No Thyroid Disease: No - Surgical History Abdominal Surgery: Yes Appendectomy: No Cardiac Surgery: Yes (Stent placement, Open heart SX, BYpass SX) Cholecystectomy: Yes Lung Surgery: No Neurologic Surgery: No Orthopedic Surgery: No - Immunization History Td Vaccination: Yes Immunization Up to Date: Yes - Psycho/Social/Smoking Cessation Hx Anxiety: Yes Suicidal Ideation: No Smoking Status: No Smoking History: Never smoked Years of Tobacco Use: 0 Have you smoked in the past 12 months: No Number of Cigarettes Smoked Daily: 0 Cigars Per Day: 0 Information on smoking cessation initiated: No Hx Alcohol Use: No Drug/Substance Use Hx: No Substance Use Type: None Hx Substance Use Treatment: No Review of Systems - Review of Systems Able to Perform ROS?: Yes Is the patient limited [place] proficient: No Constitutional: No: Chills, Diaphoresis, Fever Respiratory: Yes: Shortness of Breath. No: Cough, Stridor, Wheezing Cardiac (ROS): Yes: Chest Pain. No: Lightheadedness, Palpitations, Syncope, Chest Tightness ABD/GI: No: Constipated, Diarrhea, Nausea, Poor Appetite, Poor Fluid Intake, Rectal Bleeding, Vomiting : No: Burning, Dysuria, Discharge, Flank Pain, Hematuria Musculoskeletal: No: Back Pain Integumentary: No: Bruising, Erythema, Rash All Other Systems: Reviewed and Negative *Physical Exam - Vital Signs Last Vital Signs Temp Pulse Resp BP Pulse Ox 97.4 F L 94 H 14 113/77 98 01/21/17 00:44 01/21/17 00:44 01/21/17 00:44 01/21/17 00:44 01/21/17 00:44 - Physical Exam General Appearance: Yes: Nourished, Appropriately Dressed, Mild Distress. No: Apparent Distress, Moderate Distress, Severe Distress Neck: positive: Trachea midline, Supple. negative: Decreased range of motion, Stridor, Lymphadenopathy (R), Lymphadenopathy (L) Respiratory/Chest: positive: Labored Respiration, Decreased Breath Sounds. negative: Lungs Clear, Normal Breath Sounds, Respiratory Distress, Accessory Muscle Use, Rapid RR Cardiovascular: positive: Regular Rhythm, Regular Rate Gastrointestinal/Abdominal: positive: Normal Bowel Sounds, Soft. negative: Tender, Distended, Guarding, Rebound, Tenderness Musculoskeletal: positive: Normal Inspection. negative: CVA Tenderness Extremity: positive: Normal Capillary Refill, Normal Inspection, Normal Range of Motion. negative: Pedal Edema, Swelling, Calf Tenderness, Erythema, Inflammation Integumentary: positive: Normal Color, Dry, Warm. 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
[2017-01-21] MEDS ORDERED: ALBUTEROL SO4 0.083% IH SOL 2.5 MG/3 ML VIAL.NEB. NEB ONE ×2 (01:55→02:56)
[2017-01-21] MEDS ORDERED: INSULIN REGULAR HUMAN 100 UNITS/ML *VIAL IVPUSH ONE ×2 (01:55→04:31)
[2017-01-21] MEDS ORDERED: CALCIUM GLUCONATE 10% - 1,000 MG/10 ML VIAL IVPUSH ONE ×2 (01:55→04:31)
[2017-01-21] MEDS ORDERED: DEXTROSE 50%-WATER - 25 GM/50 ML VIAL IVPUSH ONE ×2 (01:55→04:31)
[2017-01-21] MEDS ORDERED: SODIUM BICARBONATE 8.4% 50 MEQ/50 ML DISP.SYRIN IVPUSH ONE ×2 (01:55→04:31)
[2017-01-21] MEDS ORDERED: DEXTROSE 50%-WATER 50 ML DISP.SYRIN ONE ×2 (02:05→04:41)
[2017-01-21] MEDS ORDERED: CALCIUM GLUCONATE 10% - 1,000 MG/10 ML VIAL ONE ×2 (02:05→04:41)
[2017-01-21] MEDS ORDERED: SODIUM BICARBONATE 8.4% 50 MEQ/50 ML VIAL ONE (02:06)
[2017-01-21] MEDS ORDERED: INSULIN REGULAR HUMAN 100 UNITS/ML *VIAL ONE (02:06)
--- NOTE | 2017-01-21 02:14 | PDOC ---
*Physical Exam - Vital Signs Last Vital Signs Temp Pulse Resp BP Pulse Ox 97.4 F L 94 H 14 113/77 98 01/21/17 00:44 01/21/17 00:44 01/21/17 00:44 01/21/17 00:44 01/21/17 00:44 ED Treatment Course - LABORATORY CBC & Chemistry Diagram: 01/24/17 08:35 01/24/17 08:35 - ADDITIONAL ORDERS Additional order review: Laboratory Results 01/21/17 01/21/17 01/21/17 01:30 01:30 01:30 WBC Corrected WBC (auto) RBC Hgb Hct MCV MCH MCHC RDW Plt Count MPV Neutrophils % Lymphocytes % Monocytes % Eosinophils % Basophils % Differential Comment Smudge Cells Platelet Estimate Platelet Comment RBC Morphology INR PTT (Actin FS) Sodium Cancelled Potassium Cancelled Chloride Cancelled Carbon Dioxide Cancelled Anion Gap Cancelled BUN Cancelled Creatinine Cancelled Creat Clearance w eGFR Cancelled Random Glucose Cancelled Lactic Acid 1.2 Calcium Cancelled Magnesium Cancelled Total Bilirubin Cancelled AST Cancelled ALT Cancelled Alkaline Phosphatase Cancelled Creatine Kinase Cancelled Troponin I Cancelled B-Natriuretic Peptide Cancelled Total Protein Cancelled Albumin Cancelled 01/21/17 01/21/17 01:30 01:30 WBC Cancelled Corrected WBC (auto) Cancelled RBC Cancelled Hgb Cancelled Hct Cancelled MCV Cancelled MCH Cancelled MCHC Cancelled RDW Cancelled Plt Count Cancelled MPV Cancelled Neutrophils % Cancelled Lymphocytes % Cancelled Monocytes % Cancelled Eosinophils % Cancelled Basophils % Cancelled Differential Comment Cancelled Smudge Cells Cancelled Platelet Estimate Cancelled Platelet Comment Cancelled RBC Morphology Cancelled INR Cancelled PTT (Actin FS) Cancelled Sodium Potassium Chloride Carbon Dioxide Anion Gap BUN Creatinine Creat Clearance w eGFR Random Glucose Lactic Acid Calcium Magnesium Total Bilirubin AST ALT Alkaline Phosphatase Creatine Kinase Troponin I B-Natriuretic Peptide Total Protein Albumin 01/21/17 01:30 RBC Cancelled MCV Cancelled MCHC Cancelled RDW Cancelled MPV Cancelled Neutrophils % Cancelled Lymphocytes % Cancelled Monocytes % Cancelled Eosinophils % Cancelled Basophils % Cancelled Medical Decision Making - Critical Care Time Total Critical Care Time (minutes): 60 Critical Care Statement: The care of this patient involved high complexity decision making to prevent further life threatening deterioration of the patient 's condition and/or to evalute & treat vital organ system(s) failure or risk of failure. - Medical Decision Making 01/21/17 02:08 This is a 61-year-old male with a history of end stage renal disease on dialysis , COPD who presents emergency department with a complaint of weakness while at dialysis. He had an incomplete treatment. Dialysis was discontinued because he felt weak Pt denies chest pain Pt denies palpitations Pt EKG concerning for hyperkalemia Pt seen by Midlevel Provider under my direct supervision Pt interviewed and examined Ancillary studies reviewed I agree with plan as outlined by Midlevel Provider 01/21/17 02:14 Pt labs hemolysed Attempting to re draw Pt day worker contacted 01/21/17 03:24 Laboratory Tests 01/21/17 01/21/17 02:30 02:30 WBC 9.1 D Hgb 12.8 D Hct 40.0 D Plt Count 85 L Neutrophils % 85.5 H Lymphocytes % 4.6 L D Sodium 126 L Potassium 7.2 H* D Chloride 88 L Anion Gap 16 BUN 103 H D Creatinine 9.7 H* Random Glucose 261 H D Calcium 8.3 L Creatine Kinase 38 L Troponin I 0.03 B-Natriuretic Peptide 50375.46 H 01/21/17 03:24 01/21/17 03:[address] Teran Will admit to ICU Pending discussion with Button Broacher Pt on monitor Will give Calcium, Insulin, Dextrose, Bicarb again 01/21/17 04:11 I have received a call back from Dr Eden He will call dialysis re: this patient Will give additional Insulin, Calcium, Dextrose, Bicarb 01/21/17 04:34 *DC/Admit/Observation/Transfer Diagnosis at time of Disposition: Chronic hyperkalemia, Hyperkalemia - Discharge Dispostion Condition at time of disposition: Critical Admit: Yes
[2017-01-21 02:49] LABS: BASOPHIL 0.8 % (0-2.0); EOSINOPHIL 1.3 % (0-4.5); MCH 28.4 pg (25.7-33.7); MCHC 31.9 g/dl (32.0-35.9); MEAN PLT VOLUME 9.4 fl (7.5-11.1); NEUTROPHILS 85.5 % (42.8-82.8); PLATELET COUNT 85 K/MM3 (134-434); RDW 17.5 % (11.9-15.9); WHITE BLOOD COUNT 9.1 K/mm3 (4.0-10.0)
[2017-01-21] MEDS ORDERED: morphine CARPU-JECT 4 MG/1 ML DISP.SYRIN ONE (02:56)
[2017-01-21] MEDS ORDERED: morphine CARPU-JECT 4 MG/1 ML DISP.SYRIN IVPUSH ONE (02:57)
[2017-01-21 03:09] LABS: PLATELET ESTIMATE SLT DECREASED (NORMAL)
[2017-01-21 03:11] LABS: ALBUMIN 4.1 g/dl (3.4-5.0); ANION GAP 16 (8-16); BILIRUBIN,TOTAL 0.5 mg/dL (0.2-1.0); CALCIUM 8.3 mg/dL (8.5-10.1); CO2 22 mmol/L (21-32); GLUCOSE,RANDOM 261 mg/dL (74-106); SGOT/AST 19 U/L (15-37); SGPT/ALT 29 U/L (12-78); TOT PROT 8.9 g/dl (6.4-8.2)
[2017-01-21 03:16] LABS: CREATININE 9.7 mg/dL (0.7-1.3)
[2017-01-21 03:17] LABS: ALK PHOS 113 U/L (45-117)
[2017-01-21 03:18] LABS: TROPONIN I 0.03 ng/ml (0.00-0.05)
[2017-01-21] MEDS ORDERED: SODIUM POLYSTYRENE SULFONATE 15 GM/60 ML BOTTLE PO ONE (03:37)
[2017-01-21] MEDS ORDERED: SODIUM POLYSTYRENE SULFONATE 15 GM/60 ML BOTTLE ONE (03:40)
[2017-01-21 03:54] LABS: INR 2.13 (0.82-1.09); PROTHROMBIN TIME (PATIENT) 23.8 SEC (9.98-11.88)
[2017-01-21 03:57] LABS: ACTIVATED PTT 43.8 SECONDS (26.9-34.4)
[2017-01-21] MEDS ORDERED: SODIUM BICARBONATE 8.4% - 50 ML ONE (04:41)
--- NOTE | 2017-01-21 05:29 | CONSULT ---
Consult Consult Specialty:: Pulm/CCM Reason for Consultation:: Hyperkalemia - History of Present Illness Chief Complaint: I felt weak during dialysis. History of Present Illness: This is a 61-year-old gentleman with a past medical history of ESRD (/Sun) , COPD, CAD s/p CABG, CVA, CHF, IDDM, HTN, HLD who presented to the ED from his HD center for weakness now being admitted to ICU for emergent iHD. Mr. Young was in his usual state of health on Sunday evening when he presented to his dialysis center for iHD at 8:00PM. Three hours into the session (routinely receives 7 hour sessions) he reported chest pain and generalized body weakness. At this point, 911 was called, iHD was stopped and he was brought to the ED. In the ED, initial VS 113/77, HR 94, O2 Sat 99% on 2 LNC. ECG was significant for hyperkalemic changes and lab data revealed K 7.2, Cr 9.7 and WBC 9.1. He received sodium bicarb, calcium, insulin and D50 x2. Nephrology was contacted with plans for emergent iHD. Of note he had a similar admission on 12/19/16 for weakness during iHD which resolved with a complete ultrafiltration session. On arrival to ICU, he is awake, alert oriented, denies chest pain, SOB or abdominal pain. ECG ordered. Awaiting iHD planned for 6 AM. - History Source History Provided By: Patient Limitations to Obtaining History: No Limitations - Past Medical History DIRECTOR PHARMACOVIGILANCE: Yes: Peripheral Neuropathy Cardio/Vascular: Yes: AFIB, CAD, CHF, HTN, Hyperlipdemia Pulmonary: Yes: Other (h/o MARIAN in lungs-not treated) Gastrointestinal: Yes: Other (cirrhosis-based on GONG likely) Renal/: Yes: Renal Failure, Hemodialysis Psych: Yes: Anxiety Endocrine: Yes: Diabetes Mellitus (IDDM), Hypothyroidism - Past Surgical History Past Surgical History: Yes: AICD (PPM), AV Fistula/Graft, CABG (3 vessel in 2009 ), Cholecystectomy (2006) - Alcohol/Substance Use Hx Alcohol Use: No History of Substance Use: reports: None - Smoking History Smoking history: Never smoked Have you smoked in the past 12 months: No Aproximately how many cigarettes per day: 0 - Social History Usual Living Arrangement: With Spouse ADL: Independent History of Recent Travel: No Home Medications - Allergies Allergies/Adverse Reactions: Allergies Allergy/AdvReac Type Severity Reaction Status Date / Time No Known Drug Allergies Allergy Verified 01/21/17 00:43 - Home Medications Home Medications: Ambulatory Orders Insulin Regular [Novolin R Vial -] 0 units SQ TID 12/19/16 Sucralfate [Carafate -] 1 gm PO BID 12/19/16 Levothyroxine [Synthroid -] 75 mcg PO DAILY@0700 tablet 12/24/16 Midodrine HCl [Proamatine -] 10 mg PO DAILY tablet 12/24/16 Oxycodone HCl [Roxicodone -] 10 mg PO Q4H PRN #30 tablet MDD 6 12/24/16 Polyethylene Glycol 3350 [Miralax 119 gm Btl -] 17 gm PO BID bottle 12/24/16 Amiodarone HCl [Cordarone -] 200 mg PO DAILY #30 tablet 12/25/16 Warfarin Na [Coumadin -] 5 mg PO DAILY@1800 #0 tablet 12/25/16 Family Disease History - Family Disease History Family History: Unremarkable Review of Systems - Review of Systems Constitutional: reports: Weakness Eyes: reports: No Symptoms HENT: reports: No Symptoms Neck: reports: No Symptoms Cardiovascular: reports: No Symptoms Respiratory: reports: No Symptoms Gastrointestinal: reports: No Symptoms Neurological: reports: No Symptoms Physical Exam Vital Signs: Vital Signs Temperature 97.4 F L 01/21/17 00:44 Pulse Rate 92 H 01/21/17 03:00 Respiratory Rate 19 01/21/17 03:00 Blood Pressure 123/64 01/21/17 03:00 O2 Sat by Pulse Oximetry (%) 99 01/21/17 03:00 Constitutional: Yes: No Distress, Calm Eyes: Yes: Other (Disconjugate gaze. PERRLA.) HENT: Yes: Other (Partially adentulous.) Neck: Yes: Supple, Trachea Midline Cardiovascular: Yes: Other (Regular rate. No m/r/g appreciated.) Respiratory: Yes: Other (Symmetric. Fine crackles bilaterally. No cough.) Gastrointestinal: Yes: Normal Bowel Sounds, Distention Renal/: Yes: Anuria Integumentary: Yes: Venous Stasis Changes, Other (R heel diabetic ulcer. Sacral stage II.) Neurological: Yes: Alert, Oriented Psychiatric: Yes: WNL Labs: Vital Signs Temp 97.4 F L 01/21/17 00:44 Pulse 92 H 01/21/17 03:00 Resp 19 01/21/17 03:00 BP 123/64 01/21/17 03:00 Pulse Ox 99 01/21/17 03:00 Intake & Output 01/20/17 01/20/17 01/21/17 11:59 23:59 11:59 Weight 74.1 kg Other: Height 5 ft 6 in Body Mass Index (BMI) 26.4 Weight Measurement Method Est/Stated by Patient CBC, BMP 01/21/17 02:30 01/21/17 02:30 Imaging - Results Chest X-ray: Pending EKG: Pending Problem List - Problems (1) Hyperkalemia Code(s): E87.5 - HYPERKALEMIA Assessment/Plan A/P: 61-year-old gentleman with a past medical history of ESRD (//Sun), COPD , CAD s/p CABG, CVA, CHF, IDDM, HTN, HLD who presented to the ED from his HD center for weakness now being admitted to ICU for emergent iHD -Nephrology consulted, appreciate input -Continuous telemetry -Plan for iHD at 6 AM today -ECG now -Medical management of HyperKalemia PRN while awaiting iHD (calcium, insulin, D50, bicarb) -Midodrine with iHD -Pedroza-culture -FS and AISS -SCDs for DVT prophylaxis REHANA Alexander Total CC Time: 35 mins
[2017-01-21 06:06] VITALS: BMI 25.6
--- NOTE | 2017-01-21 06:55 | HP ---
Admitting History and Physical - Primary Care Physician PCP: Cecilia Teran - Admission Chief Complaint: weakness, hyperkalemia History of Present Illness: was in his usoh, no dietary non compliance. went for his normal night time HD, three hours into HD he became profoundly weak , unable to move his limbs or talk so he was transported to er. 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 Cardiovascular: Yes: AFIB, CAD, CHF, HTN, Hyperlipdemia Pulmonary: Yes: Other (h/o MARIAN in lungs-not treated) Gastrointestinal: Yes: Other (cirrhosis-based on GONG likely) Renal/: Yes: Renal Failure, Hemodialysis Heme/Onc: Yes: Anemia Psych: Yes: Anxiety Endocrine: Yes: Diabetes Mellitus (IDDM), Hypothyroidism - Past Surgical History Past Surgical History: Yes: AV Fistula/Graft, CABG (3 vessel in 2009), Cholecystectomy (2006), Permanent Pacemaker - Smoking History Smoking history: Never smoked Have you smoked in the past 12 months: No Aproximately how many cigarettes per day: 0 - Alcohol/Substance Use Hx Alcohol Use: No History of Substance Use: reports: None - Social History Usual Living Arrangement: Yes: With Spouse ADL: Independent History of Recent Travel: No Home Medications - Allergies Allergies/Adverse Reactions: Allergies Allergy/AdvReac Type Severity Reaction Status Date / Time No Known Drug Allergies Allergy Verified 01/21/17 00:43 - Home Medications Home Medications: Ambulatory Orders Insulin Regular [Novolin R Vial -] 0 units SQ TID 12/19/16 Sucralfate [Carafate -] 1 gm PO BID 12/19/16 Levothyroxine [Synthroid -] 75 mcg PO DAILY@0700 tablet 12/24/16 Midodrine HCl [Proamatine -] 10 mg PO DAILY tablet 12/24/16 Oxycodone HCl [Roxicodone -] 10 mg PO Q4H PRN #30 tablet MDD 6 12/24/16 Polyethylene Glycol 3350 [Miralax 119 gm Btl -] 17 gm PO BID bottle 12/24/16 Amiodarone HCl [Cordarone -] 200 mg PO DAILY #30 tablet 12/25/16 Warfarin Na [Coumadin -] 5 mg PO DAILY@1800 #0 tablet 12/25/16 Family Disease History - Family Disease History Family History: Unremarkable Review of Systems Findings/Remarks: now feels better, but little weak - Review of Systems Neurological: reports: Numbness, Parasthesia Psychiatric: reports: Anxiety Physical Examination Vital Signs: Vital Signs Temperature 98 F 01/21/17 06:00 Pulse Rate 90 01/21/17 06:00 Respiratory Rate 18 01/21/17 06:00 Blood Pressure 94/62 01/21/17 06:00 O2 Sat by Pulse Oximetry (%) 99 01/21/17 05:35 Constitutional: Yes: No Distress, Calm Eyes: Yes: Conjunctiva Clear, EOM Intact HENT: Yes: Atraumatic, Normocephalic Neck: Yes: Trachea Midline Cardiovascular: Yes: Regular Rate and Rhythm Respiratory: Yes: CTA Bilaterally Gastrointestinal: Yes: Normal Bowel Sounds, Soft, Ascites Musculoskeletal: Yes: Muscle Weakness Edema: No Peripheral Pulses WNL: Yes Integumentary: Yes: Other (stage 2 sacral ulcer stage 2 right heel ulcer) Neurological: Yes: WNL, Tremors (fine tremors in hands) Psychiatric: Yes: WNL Labs: CBC, BMP 01/21/17 02:30 01/21/17 02:30 INR 2.13 lactic acid 1.2 ck trop negative BNP [id number] Imaging - Results Chest X-ray: Image Reviewed EKG: Image Reviewed Problem List - Problems (1) Coronary artery disease Code(s): I25.10 - ATHSCL HEART DISEASE OF [place] CORONARY ARTERY W/O ANG PCTRS Qualifiers: Coronary Disease-Associated Artery/Lesion type: [place] artery [place] vs. transplanted heart: [place] heart Associated angina: without angina Qualified Code(s): I25.10 - Atherosclerotic heart disease of [place] coronary artery without angina pectoris (2) Diabetes mellitus Code(s): E11.9 - TYPE 2 DIABETES MELLITUS WITHOUT COMPLICATIONS Qualifiers: Diabetes mellitus type: type 1 Diabetes mellitus complication status: with kidney complications Diabetes mellitus complication detail: with chronic kidney disease Chronic kidney disease stage: on chronic dialysis Qualified Code(s): E10.22 - Type 1 diabetes mellitus with diabetic chronic kidney disease; N18.1 - Chronic kidney disease, stage 1 (3) HTN (hypertension) Code(s): I10 - ESSENTIAL (PRIMARY) HYPERTENSION Qualifiers: Hypertension type: essential hypertension Qualified Code(s): I10 - Essential (primary) hypertension (4) Hyperkalemia Code(s): E87.5 - HYPERKALEMIA (5) Hypothyroidism Code(s): E03.9 - HYPOTHYROIDISM, UNSPECIFIED Qualifiers: Hypothyroidism type: acquired Qualified Code(s): E03.9 - Hypothyroidism, unspecified (6) Ischemic dilated cardiomyopathy Code(s): I25.5 - ISCHEMIC CARDIOMYOPATHY (7) Atrial fibrillation Code(s): I48.91 - UNSPECIFIED ATRIAL FIBRILLATION Qualifiers: Atrial fibrillation type: persistent Qualified Code(s): I48.1 - Persistent atrial fibrillation (8) Cirrhosis Code(s): K74.60 - UNSPECIFIED CIRRHOSIS OF LIVER Qualifiers: Hepatic cirrhosis type: unspecified hepatic cirrhosis Ascites presence : with ascites Qualified Code(s): K74.60 - Unspecified cirrhosis of liver (9) ESRD (end stage renal disease) Code(s): N18.6 - END STAGE RENAL DISEASE (10) S/P CABG (coronary artery bypass graft) Code(s): Z95.1 - PRESENCE OF AORTOCORONARY BYPASS GRAFT Assessment/Plan symptomatic hyperkalemia with wide complex rhythm hemodialysis this am [place] upon discharge? cardiology f/up regarding AICD inpt or outpt continue other medications
[2017-01-21] MEDS ORDERED: OXYCODONE/APAP 5/325MG COMBO TABLET PO PRN (07:12)
[2017-01-21] MEDS: INSULIN (NOVOLOG) ASPART 100 UNITS/ML 10ML VIAL SQ SCH ×3 (07:55→19:14)
[2017-01-21] MEDS: ALBUMIN HUMAN 25% 12.5 GM/50 ML VIAL IVPB SCH ×2 (09:30→10:00)
--- NOTE | 2017-01-21 09:31 | CON.NEP ---
Consult Consult Specialty:: Nephrology Referred by:: Medicine Reason for Consultation:: End stage renal disease with hyperkalemia - History of Present Illness Chief Complaint: Fatigue and tiredness History of Present Illness: 61 year old man with end stage renal disease on maintenance nocturnal hemodialysis three times a week at [facility]. Patient was transferred from the dialysis unit earlier today with increasing weaknes and fatigue. Upon arrival in the emergency department, he was found to have elevated serum potassium of 7.2 meq/l and widening of the QRS complex. 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 Cardio/Vascular: Yes: AFIB, CAD, CHF, HTN, Hyperlipdemia Pulmonary: Yes: Other (h/o MARIAN in lungs-not treated) Gastrointestinal: Yes: Other (cirrhosis-based on GONG likely) Renal/: Yes: Renal Failure, Hemodialysis Psych: Yes: Anxiety Endocrine: Yes: Diabetes Mellitus (IDDM), Hypothyroidism - Past Surgical History Past Surgical History: Yes: AV Fistula/Graft, CABG (3 vessel in 2009), Cholecystectomy (2006), Permanent Pacemaker - Alcohol/Substance Use Hx Alcohol Use: No History of Substance Use: reports: None - Smoking History Smoking history: Never smoked Have you smoked in the past 12 months: No Aproximately how many cigarettes per day: 0 - Social History Usual Living Arrangement: With Spouse ADL: Independent History of Recent Travel: No Home Medications - Allergies Allergies/Adverse Reactions: Allergies Allergy/AdvReac Type Severity Reaction Status Date / Time No Known Drug Allergies Allergy Verified 01/21/17 00:43 - Home Medications Home Medications: Ambulatory Orders Insulin Regular [Novolin R Vial -] 0 units SQ TID 12/19/16 Sucralfate [Carafate -] 1 gm PO BID 12/19/16 Levothyroxine [Synthroid -] 75 mcg PO DAILY@0700 tablet 12/24/16 Midodrine HCl [Proamatine -] 10 mg PO DAILY tablet 12/24/16 Oxycodone HCl [Roxicodone -] 10 mg PO Q4H PRN #30 tablet MDD 6 12/24/16 Polyethylene Glycol 3350 [Miralax 119 gm Btl -] 17 gm PO BID bottle 12/24/16 Amiodarone HCl [Cordarone -] 200 mg PO DAILY #30 tablet 12/25/16 Warfarin Na [Coumadin -] 5 mg PO DAILY@1800 #0 tablet 12/25/16 Review of Systems - Review of Systems Constitutional: reports: Lethargy, Weakness Nephrology Consult - Height Height: 5 ft 6 in - Weight Weight: 158 lb 11.725 oz - BMI Body Mass Index (BMI): 25.6 - Lab Results CBC,BMP: Laboratory Results - last 24 hr 01/21/17 01/21/17 01/21/17 01:30 01:30 01:30 WBC Cancelled Corrected WBC (auto) Cancelled RBC Cancelled Hgb Cancelled Hct Cancelled MCV Cancelled MCH Cancelled MCHC Cancelled RDW Cancelled Plt Count Cancelled MPV Cancelled Neutrophils % Cancelled Lymphocytes % Cancelled Monocytes % Cancelled Eosinophils % Cancelled Basophils % Cancelled Differential Comment Cancelled Smudge Cells Cancelled Platelet Estimate Cancelled Platelet Comment Cancelled RBC Morphology Cancelled INR Cancelled PTT (Actin FS) Cancelled Sodium Cancelled Potassium Cancelled Chloride Cancelled Carbon Dioxide Cancelled Anion Gap Cancelled BUN Cancelled Creatinine Cancelled Creat Clearance w eGFR Cancelled Random Glucose Cancelled Lactic Acid Calcium Cancelled Magnesium Total Bilirubin Cancelled AST Cancelled ALT Cancelled Alkaline Phosphatase Cancelled Creatine Kinase Cancelled Troponin I Cancelled B-Natriuretic Peptide Cancelled Total Protein Cancelled Albumin Cancelled 01/21/17 01/21/17 01/21/17 01:30 01:30 02:30 WBC Corrected WBC (auto) RBC Hgb Hct MCV MCH MCHC RDW Plt Count MPV Neutrophils % Lymphocytes % Monocytes % Eosinophils % Basophils % Differential Comment Smudge Cells Platelet Estimate Platelet Comment RBC Morphology INR PTT (Actin FS) Sodium 126 L Potassium 7.2 H* D Chloride 88 L Carbon Dioxide 22 Anion Gap 16 BUN 103 H D Creatinine 9.7 H* Creat Clearance w eGFR 5.50 Random Glucose 261 H D Lactic Acid 1.2 Calcium 8.3 L Magnesium Cancelled Total Bilirubin 0.5 AST 19 D ALT 29 Alkaline Phosphatase 113 D Creatine Kinase 38 L Troponin I 0.03 B-Natriuretic Peptide 80287.46 H Total Protein 8.9 H D Albumin 4.1 D 01/21/17 01/21/17 01/21/17 02:30 02:30 03:30 WBC 9.1 D Corrected WBC (auto) RBC 4.50 D Hgb 12.8 D Hct 40.0 D MCV 89.0 MCH 28.4 MCHC 31.9 L RDW 17.5 H Plt Count 85 L MPV 9.4 Neutrophils % 85.5 H Lymphocytes % 4.6 L D Monocytes % 7.8 Eosinophils % 1.3 Basophils % 0.8 Differential Comment Smudge Cells Platelet Estimate Slt decreased Platelet Comment Few giant plts RBC Morphology INR 2.13 H PTT (Actin FS) 43.8 H D Sodium Potassium Chloride Carbon Dioxide Anion Gap BUN Creatinine Creat Clearance w eGFR Random Glucose Lactic Acid 1.1 Calcium Magnesium Total Bilirubin AST ALT Alkaline Phosphatase Creatine Kinase Troponin I B-Natriuretic Peptide Total Protein Albumin 01/21/17 08:00 WBC Corrected WBC (auto) RBC Hgb Hct MCV MCH MCHC RDW Plt Count MPV Neutrophils % Lymphocytes % Monocytes % Eosinophils % Basophils % Differential Comment Smudge Cells Platelet Estimate Platelet Comment RBC Morphology INR PTT (Actin FS) Sodium Potassium Chloride Carbon Dioxide Anion Gap BUN Creatinine Creat Clearance w eGFR Random Glucose Lactic Acid Calcium Magnesium Total Bilirubin AST ALT Alkaline Phosphatase Creatine Kinase Cancelled Troponin I Cancelled B-Natriuretic Peptide Total Protein Albumin Anion Gap: Anion Gap Anion Gap 16 (8-16) 01/21/17 02:30 - Physical Examination Vital Signs: Vital Signs Temperature 98.1 F 01/21/17 07:55 Pulse Rate 101 H 01/21/17 08:30 Respiratory Rate 18 01/21/17 08:30 Blood Pressure 106/53 01/21/17 08:30 O2 Sat by Pulse Oximetry (%) 100 01/21/17 07:45 Constitutional: Yes: Well Nourished, No Distress, Calm Eyes: Yes: WNL HENT: Yes: WNL Neck: Yes: WNL Cardiovascular: Yes: Pulse Irregular, Murmur Respiratory: Yes: WNL Gastrointestinal: Yes: Soft, Abdomen, Obese Access for Hemodialysis: AV Fistula Edema: LLE: Trace, RLE: Trace Neurological: Yes: Alert, Oriented Assessment/Plan 61 year old man with end stage renal disease admitted with hyperkalemia and elevated BNP. The patient is presently undergoing urgent hemodialysis Will refer to the wholesaler upon discharge for further dietary counselling. Repeat post dialysis BMP.
[2017-01-21] MEDS: MIDODRINE HCL 5 MG TABLET PO SCH (09:32)
[2017-01-21 09:40] LABS: ALBUMIN 3.5 g/dl (3.4-5.0); ANION GAP 16 (8-16); BILIRUBIN,TOTAL 0.3 mg/dL (0.2-1.0); CALCIUM 8.4 mg/dL (8.5-10.1); CO2 23 mmol/L (21-32); GLUCOSE,RANDOM 139 mg/dL (74-106); SGOT/AST 17 U/L (15-37); SGPT/ALT 23 U/L (12-78); TOT PROT 7.4 g/dl (6.4-8.2)
[2017-01-21] MEDS ORDERED: PT OWN MED DRAWER 7, Y5N ONE ×3 (09:43→21:28)
[2017-01-21 09:45] LABS: ALK PHOS 93 U/L (45-117); TROPONIN I 0.04 ng/ml (0.00-0.05)
[2017-01-21 09:58] LABS: CREATININE 8.1 mg/dL (0.7-1.3)
[2017-01-21] MEDS ORDERED: HEPARIN NA (PORCINE) 5,000 UNITS/ML 1ML VIAL IVPUSH ONE (10:00)
[2017-01-21] MEDS ORDERED: MIDODRINE HCL 5 MG TABLET PO SCH (10:00)
--- NOTE | 2017-01-21 11:08 | PN ---
Progress Note (short form) - Note Progress Note: Chief Complaint: Events noted, notes reviewed, generalized weakness, denies any chest pain but reports dyspnea History of Present Illness: Seen and examined in the ICU. Events noted, notes reviewed, generalized weakness , denies any chest pain but reports dyspnea Echocardiography dated 04/28/16 revealed LV systolic function moderate/severely reduced, akinesis of basal and mid kandy-septum, apical anterior and apical inferior mustafa; left atrium moderately dilated; mild to moderate mitral annular calcification, mild mitral regurgitaion, moderate tricuspid regurgitation, RV systolic pressure elevated; mild aortic sclerosis. Medications: Current Medications Acetaminophen (Tylenol -) 650 mg PO Q6H PRN PRN Reason: PAIN Amiodarone HCl (Cordarone -) 200 mg PO DAILY [facility] Insulin Aspart (Novolog Vial) 1 units SQ BIDAC [facility] PRN Reason: Protocol Last Admin: 01/21/17 07:55 Dose: 1 units Levothyroxine Sodium (Synthroid -) 75 mcg PO DAILY@0700 [facility] Midodrine (Proamatine -) 10 mg PO DAILY [facility] Last Admin: 01/21/17 09:32 Dose: 10 mg Oxycodone HCl (Roxicodone -) 10 mg PO Q6H PRN PRN Reason: PAIN Polyethylene Glycol (Miralax (For Daily Use) -) 17 gm PO BID RACHEL Sucralfate (Carafate -) 1 gm PO BID RACHEL Warfarin Sodium (Coumadin -) 4 mg PO DAILY@1800 [facility] Review of Systems Cardiovascular: As noted above Respiratory: denies: Cough or Sputum Production Gastrointestinal: denies: Nausea, Vomiting, Diarrhea, Constipation or Abdominal Pain Musculoskeletal: No Symptoms Reported Endocrine: DM Vital Signs: Last Vital Signs Temp Pulse Resp BP Pulse Ox 98.1 F 71 19 82/53 100 01/21/17 07:55 01/21/17 10:00 01/21/17 10:00 01/21/17 10:00 01/21/17 07:45 Constitutional: No Distress, Calm, Thin Neck: Supple Negative JVD No bruit Respiratory: Diminished Breath Sounds at the Bases Cardiovascular: S1 S2 Regular Rate and Rhythm Grade 2/6 SM Gastrointestinal: Soft Benign Normal Bowel Sounds Ext: No Edema Labs: CBC, BMP 01/21/17 02:30 01/21/17 08:00 Hepatic Panel Total Bilirubin 0.3 mg/dL (0.2-1.0) D 01/21/17 08:00 AST 17 U/L (15-37) 01/21/17 08:00 ALT 23 U/L (12-78) D 01/21/17 08:00 Alkaline Phosphatase 93 U/L (45-117) 01/21/17 08:00 Albumin 3.5 g/dl (3.4-5.0) 01/21/17 08:00 INR, PTT INR 2.13 (0.82-1.09) H 01/21/17 03:30 Assessment/Plan ASSESSMENT: 1. Generalized weakness, unclear if syncopal episode during HD session 2. Hyperkalemia related to incomplete HD session 3. CAD post NH/PCI(stent)/CABG, angina pectoris with history of demand ischemic injury 4. Ischemic dilated cardiomyopathy 5. Paroxysmal atrial fibrillation, [id number] score of 4, currently in sinus rhythm 6. Syncope referable to sustained VT/VF 7. Post [employer]'s ICD implant 8. HTN history currently hypotensive on Midodrine therapy 9. DM 10. Hypothyroidism 11. ESRD on HD 12. Thrombocytopenia PLAN: 1. Ideally should be on Carvedilol and ACEI or ARBS therapies, but limitation is hypotension 2. Continue Amiodarone 3. Coumadin as per INR with caution 4. Continue Midodrine 5. HD as per renal service Jocelyn Hay M.D.
[2017-01-21] MEDS: SUCRALFATE 1 GM TABLET (FP) PO SCH ×2 (11:14→21:52)
[2017-01-21] MEDS: oxyCODONE HCL 5 MG TABLET PO PRN ×2 (11:15→19:59)
[2017-01-21] MEDS: POLYETHYLENE GLYCOL 3350 119 GM BTL PO SCH ×2 (11:15→21:54)
[2017-01-21] MEDS: AMIODARONE HCL 200 MG TABLET (FP) PO SCH (11:15)
[2017-01-21] MEDS: ACETAMINOPHEN 325 MG TABLET (FP) PO PRN (11:16)
[2017-01-21] MEDS ORDERED: INSULIN (NOVOLOG) ASPART 100 UNITS/ML 10ML VIAL SQ ONE (17:15)
[2017-01-21] MEDS ORDERED: WARFARIN NA 2 MG TABLET (UD) PO SCH (18:00)
[2017-01-22] MEDS: oxyCODONE HCL 5 MG TABLET PO PRN ×3 (06:04→21:14)
[2017-01-22 06:27] LABS: BASOPHIL 1.1 % (0-2.0); EOSINOPHIL 4.4 % (0-4.5); MCH 28.5 pg (25.7-33.7); MEAN PLT VOLUME 9.5 fl (7.5-11.1); NEUTROPHILS 71.5 % (42.8-82.8); PLATELET COUNT 72 K/MM3 (134-434); RDW 17.3 % (11.9-15.9)
[2017-01-22] MEDS: INSULIN (NOVOLOG) ASPART 100 UNITS/ML 10ML VIAL SQ SCH ×2 (06:30→17:55)
[2017-01-22 06:39] LABS: INR 1.67 (0.82-1.09); PROTHROMBIN TIME (PATIENT) 18.6 SEC (9.98-11.88)
[2017-01-22 06:53] LABS: ALBUMIN 3.2 g/dl (3.4-5.0); ANION GAP 12 (8-16); BILIRUBIN,TOTAL 0.5 mg/dL (0.2-1.0); CALCIUM 8.1 mg/dL (8.5-10.1); CO2 30 mmol/L (21-32); CREATININE 7.3 mg/dL (0.7-1.3); GLUCOSE,RANDOM 256 mg/dL (74-106); SGOT/AST 14 U/L (15-37); SGPT/ALT 22 U/L (12-78); TOT PROT 6.7 g/dl (6.4-8.2)
[2017-01-22 06:54] LABS: ALK PHOS 87 U/L (45-117)
[2017-01-22] MEDS ORDERED: INSULIN SLIDING SCALE (NOVOLOG) 1 VIAL SQ SCH (07:00)
[2017-01-22] MEDS ORDERED: LEVOTHYROXINE NA 75 MCG TABLET (FP) PO SCH (07:00)
--- NOTE | 2017-01-22 07:20 | PN ---
Progress Note (short form) - Note Progress Note: Admitted for symptomatic severe hyperkalemia, has had HD yesterday am. Feels better, hemodynamically stable. CBC, BMP 01/22/17 05:15 01/22/17 05:15 Vital Signs Period Temp Pulse Resp BP Sys/Lopez Pulse Ox Last 24 Hr 97 F-98.1 F 56-101 17-22 82-114/45-85 100-100 S1S2 RRR lungs cta abd distended no edema right heel stage 2 ulcer nonfocal exam Imp Hyperkalemia ESRD IDDM parox Afib dilated cardiomyopathy CAD hypotension Plan HD as per renal dietary consult for low potassium diet-of note pt is pretty consistent with his diet, does not report any non-compliance PT eval dc planning on home kayexelate Problem List - Problems (1) Coronary artery disease Code(s): I25.10 - ATHSCL HEART DISEASE OF [place] CORONARY ARTERY W/O ANG PCTRS Qualifiers: Qualified Code(s): I25.10 - Atherosclerotic heart disease of [place] coronary artery without angina pectoris (2) Diabetes mellitus Code(s): E11.9 - TYPE 2 DIABETES MELLITUS WITHOUT COMPLICATIONS Qualifiers: Qualified Code(s): E10.22 - Type 1 diabetes mellitus with diabetic chronic kidney disease; N18.1 - Chronic kidney disease, stage 1 (3) HTN (hypertension) Code(s): I10 - ESSENTIAL (PRIMARY) HYPERTENSION Qualifiers: Qualified Code(s): I10 - Essential (primary) hypertension (4) Hyperkalemia Code(s): E87.5 - HYPERKALEMIA (5) Hypothyroidism Code(s): E03.9 - HYPOTHYROIDISM, UNSPECIFIED Qualifiers: Qualified Code(s): E03.9 - Hypothyroidism, unspecified (6) Ischemic dilated cardiomyopathy Code(s): I25.5 - ISCHEMIC CARDIOMYOPATHY (7) Atrial fibrillation Code(s): I48.91 - UNSPECIFIED ATRIAL FIBRILLATION Qualifiers: Qualified Code(s): I48.1 - Persistent atrial fibrillation (8) Cirrhosis Code(s): K74.60 - UNSPECIFIED CIRRHOSIS OF LIVER Qualifiers: Qualified Code(s): K74.60 - Unspecified cirrhosis of liver (9) ESRD (end stage renal disease) Code(s): N18.6 - END STAGE RENAL DISEASE (10) S/P CABG (coronary artery bypass graft) Code(s): Z95.1 - PRESENCE OF AORTOCORONARY BYPASS GRAFT
[2017-01-22] MEDS ORDERED: INSULIN DETEMIR 100 UNITS/ML MDV SQ SCH (07:45)
[2017-01-22] MEDS ORDERED: PT OWN MED DRAWER 7, Y5N ONE (09:12)
--- NOTE | 2017-01-22 09:18 | PN ---
Progress Note, Physician History of Present Illness: Back in sinus rhythm, hyperkalemia has resolved, no further recurrent near or true syncope. - Current Medication List Current Medications: Active Medications Acetaminophen (Tylenol -) 650 mg PO Q6H PRN PRN Reason: PAIN Last Admin: 01/21/17 11:16 Dose: 650 mg Amiodarone HCl (Cordarone -) 200 mg PO DAILY [facility] Last Admin: 01/21/17 11:15 Dose: 200 mg Gentamicin Sulfate (Garamycin 0.1% Ointment -) 1 applic TP BID [facility] Insulin Aspart (Novolog Vial) 1 units SQ BIDAC [facility] PRN Reason: Protocol Last Admin: 01/22/17 06:30 Dose: 6 units Insulin Detemir (Levemir Vial) 15 units SQ DAILY@0700 [facility] Last Admin: 01/22/17 08:39 Dose: 15 units Levothyroxine Sodium (Synthroid -) 75 mcg PO DAILY@0700 [facility] Last Admin: 01/22/17 06:29 Dose: 75 mcg Midodrine (Proamatine -) 10 mg PO DAILY [facility] Last Admin: 01/21/17 09:32 Dose: 10 mg Oxycodone HCl (Roxicodone -) 10 mg PO Q6H PRN PRN Reason: PAIN Last Admin: 01/22/17 06:04 Dose: 10 mg Polyethylene Glycol (Miralax (For Daily Use) -) 17 gm PO BID [facility] Last Admin: 01/21/17 21:54 Dose: 17 gm Sucralfate (Carafate -) 1 gm PO BID [facility] Last Admin: 01/21/17 21:52 Dose: 1 gm Warfarin Sodium (Coumadin -) 4 mg PO DAILY@1800 [facility] Last Admin: 01/21/17 17:14 Dose: 4 mg - Objective Vital Signs: Vital Signs Temperature 97.8 F 01/22/17 06:00 Pulse Rate 58 L 01/22/17 08:00 Respiratory Rate 13 01/22/17 08:00 Blood Pressure 104/49 01/22/17 08:00 O2 Sat by Pulse Oximetry (%) 100 01/21/17 20:47 Constitutional: Yes: No Distress, Calm, Thin Neck: Yes: Supple Cardiovascular: Yes: Regular Rate and Rhythm, Murmur (2/6 SM) Respiratory: Yes: Regular, Diminished Gastrointestinal: Yes: Normal Bowel Sounds, Soft Edema: No Labs: CBC, BMP 01/22/17 05:15 01/22/17 05:15 INR, PTT INR 1.67 (0.82-1.09) H 01/22/17 05:15 - ....Imaging Chest X-ray: Report Reviewed (NAD) Assessment/Plan Echocardiography dated 04/28/16 revealed LV systolic function moderate/severely reduced, akinesis of basal and mid kandy-septum, apical anterior and apical inferior mustafa; left atrium moderately dilated; mild to moderate mitral annular calcification, mild mitral regurgitaion, moderate tricuspid regurgitation, RV systolic pressure elevated; mild aortic sclerosis. 1. Generalized weakness with possible syncopal episode during HD session 2. Hyperkalemia related to incomplete HD session resolved 3. CAD post [place]/PCI(stent)/CABG, angina pectoris with history of demand ischemic injury 4. Ischemic dilated cardiomyopathy with pulm HTN 5. Paroxysmal atrial fibrillation->sinus rhythm, [id number] score of 4, with subtherapeutic INR 6. Syncope referable to sustained VT/VF 7. Post [employer]'s ICD implant 8. Orthostatic hypotension on Midodrine therapy 9. DM 10. Hypothyroidism 11. ESRD on HD 12. Anemia of renal disease, Thrombocytopenia 13. h/o CVA 14. COPD PLAN: 1. Ideally should be on Carvedilol and ACEI or ARBS therapies, but limitation is hypotension 2. Continue Amiodarone 200 qd 3. Dose Coumadin per INR 4. Continue Midodrine 5 bid 5. HD as per renal service 6. F/u with Dr. Zachery Mccormick at [facility] as outpatient
[2017-01-22] MEDS: AMIODARONE HCL 200 MG TABLET (FP) PO SCH (09:23)
[2017-01-22] MEDS: SUCRALFATE 1 GM TABLET (FP) PO SCH ×2 (09:23→21:13)
[2017-01-22] MEDS: MIDODRINE HCL 5 MG TABLET PO SCH (09:23)
[2017-01-22] MEDS: POLYETHYLENE GLYCOL 3350 119 GM BTL PO SCH ×2 (09:24→21:15)
[2017-01-22] MEDS ORDERED: GENTAMICIN SO4 0.1% TOPICAL OINTMENT 15 GM/TUBE TUBE TP SCH (10:00)
[2017-01-22] MEDS ORDERED: diphenhydrAMINE HCL 25 MG CAPSULE (FP) PO ONE (10:31)
--- NOTE | 2017-01-22 12:26 | PN ---
Teaching Attending Note Name of Resident: Arnaldo Mesa ATTENDING PHYSICIAN STATEMENT I saw and evaluated the patient. I reviewed the resident's note and discussed the case with the resident. I agree with the resident's findings and plan as documented. SUBJECTIVE: Feels overall better. No CP or SOB. No acute events overnight. Intake & Output 01/19/17 01/20/17 01/21/17 01/22/17 23:59 23:59 23:59 23:59 Intake Total 530 300 Output Total 0 Balance 530 300 Weight 158 lb 11.725 oz Last Vital Signs Temp Pulse Resp BP Pulse Ox 98.2 F 64 18 107/52 100 01/22/17 10:35 01/22/17 11:40 01/22/17 11:40 01/22/17 11:40 01/21/17 20:47 Active Medications Acetaminophen (Tylenol -) 650 mg PO Q6H PRN PRN Reason: PAIN Last Admin: 01/21/17 11:16 Dose: 650 mg Amiodarone HCl (Cordarone -) 200 mg PO DAILY [facility] Last Admin: 01/22/17 09:23 Dose: 200 mg Gentamicin Sulfate (Garamycin 0.1% Ointment -) 1 applic TP BID [facility] Last Admin: 01/22/17 09:24 Dose: 1 applic Insulin Aspart (Novolog Vial) 1 units SQ BIDAC [facility] PRN Reason: Protocol Last Admin: 01/22/17 06:30 Dose: 6 units Insulin Detemir (Levemir Vial) 15 units SQ DAILY@0700 [facility] Last Admin: 01/22/17 08:39 Dose: 15 units Levothyroxine Sodium (Synthroid -) 75 mcg PO DAILY@0700 [facility] Last Admin: 01/22/17 06:29 Dose: 75 mcg Midodrine (Proamatine -) 10 mg PO DAILY [facility] Last Admin: 01/22/17 09:23 Dose: 10 mg Oxycodone HCl (Roxicodone -) 10 mg PO Q6H PRN PRN Reason: PAIN Last Admin: 01/22/17 06:04 Dose: 10 mg Polyethylene Glycol (Miralax (For Daily Use) -) 17 gm PO BID [facility] Last Admin: 01/22/17 09:24 Dose: 17 gm Sucralfate (Carafate -) 1 gm PO BID [facility] Last Admin: 01/22/17 09:23 Dose: 1 gm Warfarin Sodium (Coumadin -) 4 mg PO DAILY@1800 [facility] Last Admin: 01/21/17 17:14 Dose: 4 mg Constitutional: Yes: No Distress Eyes: Yes: (-) Icterus/Pallor HENT: Yes: Other (Partially adentulous.) Neck: Yes: Supple, Trachea Midline Cardiovascular: Yes: Other (Regular rate. No m/r/g appreciated.) Respiratory: Yes: Few fine basilar rales Gastrointestinal: Yes: Normal Bowel Sounds, Distention Renal/: Yes: Anuria Integumentary: Yes: Venous Stasis Changes, Other (R heel diabetic ulcer. Sacral stage II.) Neurological: Yes: Alert, Oriented Psychiatric: Yes: WNL Labs: Problem List - Problems (1) Hyperkalemia Code(s): E87.5 - HYPERKALEMIA Assessment/Plan ESRD (//Sun) COPD CAD S/P CABG CVA CHF IDDM HTN HLD HD per renal Midodrine with HD SCDs for DVT prophylaxis No Pulmonary contraindication for D/C planning Dr Fuller
--- NOTE | 2017-01-22 12:42 | EKG ---
Test Reason : Blood Pressure : / mmHG Vent. Rate : 081 BPM Atrial Rate : 065 BPM P-R Int : 000 ms QRS Dur : 166 ms QT Int : 452 ms P-R-T Axes : 000 -89 -63 degrees QTc Int : 525 ms ATRIAL FIBRILLATION LEFT AXIS DEVIATION RIGHT BUNDLE BRANCH BLOCK CANNOT RULE OUT ANTEROSEPTAL INFARCT , AGE UNDETERMINED T WAVE ABNORMALITY, CONSIDER LATERAL ISCHEMIA ABNORMAL ECG WHEN COMPARED WITH ECG OF 21-JAN-2017 01:46, QRS DURATION HAS NARROWED CLINICAL CORRELATION IS RECOMMENDED Confirmed by BETZY ZHONG MD ([id number]) on 01/22/2017 12:42:38 PM Referred By: Confirmed By:BETZY ZHONG MD
--- NOTE | 2017-01-22 12:43 | EKG ---
Test Reason : Blood Pressure : / mmHG Vent. Rate : 073 BPM Atrial Rate : 000 BPM P-R Int : 000 ms QRS Dur : 252 ms QT Int : 540 ms P-R-T Axes : 000 270 081 degrees QTc Int : 594 ms WIDE QRS RHYTHM RIGHT BUNDLE BRANCH BLOCK ANTEROSEPTAL INFARCT , AGE UNDETERMINED ABNORMAL ECG WHEN COMPARED WITH ECG OF 20-DEC-2016 00:25, WIDE QRS RHYTHM HAS REPLACED SINUS RHYTHM Confirmed by TREVIN LIRA, BETZY ([id number]) on 01/22/2017 12:42:53 PM Referred By: Confirmed By:BETZY ZHONG MD
[2017-01-22] MEDS: ACETAMINOPHEN 325 MG TABLET (FP) PO PRN ×2 (14:13→21:14)
--- NOTE | 2017-01-22 14:15 | PN ---
Physical Exam: SUBJECTIVE: 61 year old male w/ pmh ESRD (T/malena/Sat), COPD, CAD s/p CABG, CVA, CHF, DM, HTN , HLD admitted to ICU with chest pain/weakness + hyperkalemia (7.2) for emergent HD (Cre 0.7) OBJECTIVE: Vital Signs Period Temp Pulse Resp BP Sys/Lopez Pulse Ox Last 24 Hr 97 F-98.2 F 56-64 13-22 84-121/44-85 100 GENERAL: The patient is awake, alert, and fully oriented, in no acute distress. HEAD: Normal with no signs of trauma. EYES: PERRL, extraocular movements intact, sclera anicteric, conjunctiva clear. No ptosis. ENT: Ears normal, nares patent, oropharynx clear without exudates, moist mucous membranes. NECK: Trachea midline, full range of motion, supple. LUNGS: Breath sounds equal, clear to auscultation bilaterally, no wheezes, no crackles, no accessory muscle use. HEART: Regular rate and rhythm, S1, S2 without murmur, rub or gallop. ABDOMEN: Soft, nontender, nondistended, normoactive bowel sounds, no guarding, no rebound, no hepatosplenomegaly, no masses. EXTREMITIES: 2+ pulses, warm, well-perfused, no edema. NEUROLOGICAL: Cranial nerves II through XII grossly intact. Normal speech, gait not observed. PSYCH: Normal mood, normal affect. SKIN: Warm, dry, normal turgor, no rashes or lesions noted CBC, BMP 01/22/17 05:15 01/22/17 05:15 Active Medications Generic Name Dose Route Start Last Admin Trade Name Freq PRN Reason Stop Dose Admin Acetaminophen 650 mg 01/21/17 07:22 01/21/17 11:16 Tylenol - PO 650 mg Q6H PRN Administration PAIN Amiodarone HCl 200 mg 01/21/17 10:00 01/22/17 09:23 Cordarone - PO 200 mg DAILY [facility] Administration Gentamicin Sulfate 1 applic 01/22/17 10:00 01/22/17 09:24 Garamycin 0.1% Ointment - TP 1 applic BID [facility] Administration Insulin Aspart 1 units 01/21/17 17:45 01/22/17 06:30 Novolog Vial SQ 6 units BIDAC [facility] Administration Protocol Insulin Detemir 15 units 01/22/17 07:45 01/22/17 08:39 Levemir Vial SQ 15 units DAILY@0700 [facility] Administration Levothyroxine Sodium 75 mcg 01/22/17 07:00 01/22/17 06:29 Synthroid - PO 75 mcg DAILY@0700 [facility] Administration Midodrine 10 mg 01/21/17 10:00 01/22/17 09:23 Proamatine - PO 10 mg DAILY [facility] Administration Oxycodone HCl 10 mg 01/21/17 07:22 01/22/17 06:04 Roxicodone - PO 10 mg Q6H PRN Administration PAIN Polyethylene Glycol 17 gm 01/21/17 10:00 01/22/17 09:24 Miralax (For Daily Use) - PO 17 gm BID [facility] Administration Sucralfate 1 gm 01/21/17 10:00 01/22/17 09:23 Carafate - PO 1 gm BID [facility] Administration Warfarin Sodium 4 mg 01/21/17 18:00 01/21/17 17:14 Coumadin - PO 4 mg DAILY@1800 [facility] Administration CXR: no acute pulmonary dz, pacemaker present ASSESSMENT/PLAN: 61 year old male w/ symptomatic hyperkalemia and ESRD s/p emergent HD Cardiovascular: pt baseline bradycardic on pacemaker -monitor BP, HR -monitor Hgb -continue amiodarone 200mg PO -cont warfarin 4mg PO ID: 1/2 blood cx positive, likely 2/2 contamination -f/u with ID Renal: Improving BUN/Cre (58/7.3 today) -monitor I/Os -continue insulin detemir, aspart FEN: -potassium normalized to 4 -patient is on potassium-diet -counseled on importance of adhering to diet and avoiding high potassium foods Dispo: -called Cecilia Rahman about DC pt from hospital - wants to keep due to (+) blood culture -stable for transfer to med-surg Problem List - Problems (1) Hyperkalemia Code(s): E87.5 - HYPERKALEMIA (2) Precordial chest pain Code(s): R07.2 - PRECORDIAL PAIN (3) ESRD (end stage renal disease) Code(s): N18.6 - END STAGE RENAL DISEASE Visit type - Emergency Visit Emergency Visit: No - New Patient This patient is new to me today: Yes Date on this admission: 01/22/17 - Critical Care Critical Care patient: Yes Total Critical Care Time (in minutes): 45 Critical Care Statement: The care of this patient involved high complexity decision making to prevent further life threatening deterioration of the patient 's condition and/or to evalute & treat vital organ system(s) failure or risk of failure.
--- NOTE | 2017-01-22 15:27 | CONSULT ---
Consultation: REQUESTING PROVIDER: CONSULT REQUEST: We have been asked to medically evaluate this patient for suspected bacteremia. HISTORY OF PRESENT ILLNESS: 61 yo man w/ pmh of afib w/ rvr, ESRD, CAD, CHF, HLD and hypothyroidism who presented to the ED yesterday after becoming profoundly weak with inability to talk or move his arms during an overnight HD session beginning sunday night. In the ED, pt was found to be hyperkalemia at 7.2, with widening of QRS complexes on EKG, and received multiple rounds of ca gluconate/albuterol, insulin, and bicarb. He experienced symptomatic improvement following this tx and was transferred to ICU. F/u blood cx's were positive for gram positive cocci in clusters, so ID consult was called. Patient denies any fever, chills, BARRETT, N/V, dysuria, diarrhea, abdominal pain, cough, rash or chest pain. He endorses mild resolving fatigue, constipation and pruritus. He denies any recent travel, pets, or sick contacts. He lives at home with his mother and daughter and requires assistance from family members with ADLs, such as bathing, due to neuropathy. Pt w/ ESRD and receives HD 3x per week , with A/V fistula in R arm for access, with fistula evaluations every 2 months. Pt also w/ permanent pacemaker for persistent symptomatic bradycardia. ID history notable for MAC PNA, requiring prior hospitalization. PMHx as noted above Anemia HLD Peripheral neuropathy H/o MARIAN in lungs per prior notes PSHx CABG 2009 Cholecystectomy 2006 Av/Fistula PPM Allergies NKDA Meds See Below Fam Hx Non-contributory Social Hx Never smoked. No alcohol or drugs. 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 Lives w/ . REVIEW OF SYSTEMS: CONSTITUTIONAL: generalized weakness Absent: fever, chills, diaphoresis, malaise, loss of appetite, weight change HEENT: Absent: rhinorrhea, nasal congestion, throat pain, throat swelling, difficulty swallowing, mouth swelling, ear pain, CARDIOVASCULAR: Absent: chest pain, palpitations, irregular heart rate, lightheadedness, peripheral edema RESPIRATORY: Absent: cough, shortness of breath, dyspnea with exertion, orthopnea, wheezing, stridor, hemoptysis GASTROINTESTINAL: Constipation Absent: abdominal pain, abdominal distension, nausea, vomiting, diarrhea, melena, hematochezia GENITOURINARY: Absent: dysuria, frequency, urgency, hesitancy, hematuria, flank pain, genital pain MUSCULOSKELETAL: Absent: myalgia, arthralgia, joint swelling, back pain, neck pain SKIN: itching Absent: rash, pallor HEMATOLOGIC/IMMUNOLOGIC: Absent: easy bleeding, easy bruising ENDOCRINE: Absent: unexplained weight gain, unexplained weight loss, heat intolerance, cold intolerance NEUROLOGIC: focal weakness, unsteady gait Absent: headache, paresthesias, dizziness, seizure PHYSICAL EXAMINATION Vital Signs - 24 hr 01/21/17 01/21/17 01/21/17 16:00 18:00 20:00 Temperature 98 F 97.9 F Pulse Rate 58 L 58 L 56 L Respiratory 18 18 20 Rate Blood Pressure 84/52 107/56 93/46 O2 Sat by Pulse Oximetry (%) 01/21/17 01/21/17 01/22/17 20:47 22:00 00:00 Temperature Pulse Rate 58 L 58 L Respiratory 20 18 20 Rate Blood Pressure 114/54 87/66 O2 Sat by Pulse 100 Oximetry (%) 01/22/17 01/22/17 01/22/17 02:00 04:00 06:00 Temperature 97 F L 97.8 F Pulse Rate 57 L 58 L 57 L Respiratory 18 22 18 Rate Blood Pressure 97/85 100/45 105/55 O2 Sat by Pulse Oximetry (%) 01/22/17 01/22/17 01/22/17 08:00 10:00 10:35 Temperature 98.1 F 98.2 F Pulse Rate 58 L 61 62 Respiratory 13 15 18 Rate Blood Pressure 104/49 93/47 108/54 O2 Sat by Pulse Oximetry (%) 01/22/17 01/22/17 01/22/17 10:40 11:10 11:40 Temperature Pulse Rate 60 64 64 Respiratory 18 18 18 Rate Blood Pressure 110/52 121/63 107/52 O2 Sat by Pulse Oximetry (%) 01/22/17 01/22/17 01/22/17 12:00 12:10 12:40 Temperature Pulse Rate 60 62 60 Respiratory 17 18 18 Rate Blood Pressure 101/57 101/57 96/53 O2 Sat by Pulse Oximetry (%) 01/22/17 01/22/17 01/22/17 13:00 13:30 14:02 Temperature Pulse Rate 64 62 60 Respiratory 18 18 18 Rate Blood Pressure 90/52 99/44 92/65 O2 Sat by Pulse Oximetry (%) GENERAL: Awake, alert, and fully oriented, in no acute distress. HEAD: Normal with no signs of trauma. Alopecia. No temporal arteritis or wasting. EYES: Pupils equal, round and reactive to light, extraocular movements intact, sclera anicteric, conjunctiva clear. No lid lag. R eye lateral deviation. EARS, NOSE, THROAT: Ears normal, nares patent, oropharynx clear without exudates. Moist mucous membranes. NECK: upple without lymphadenopathy, JVD, or masses. LUNGS: Breath sounds equal, clear to auscultation bilaterally. No wheezes and no crackles. No accessory muscle use. HEART: Distant heart sounds, difficult to appreciate on exam. Regular rate and rhythm, normal S1 and S2 without murmur, rub or gallop. ABDOMEN: Soft, nontender, distended, normoactive bowel sounds, no guarding, no rebound, no masses. Mild umbilical hernia. No hepatomegaly or splenomegaly. MUSCULOSKELETAL: No bony deformities or tenderness. No CVA tenderness. UPPER EXTREMITIES: 2+ pulses, warm, well-perfused. No cyanosis. No clubbing. Cap refill <2 seconds. No peripheral edema. LOWER EXTREMITIES: 2+ pulses, warm, well-perfused. No calf tenderness. No peripheral edema. Grade 2 decubitus ulcer on R ankle. NEUROLOGICAL: Cranial nerves II-XII grossly intact. Normal speech. Gait not evaluated due to pt refusal. PSYCHIATRIC: Cooperative. Good eye contact. Appropriate mood and affect. SKIN: Warm, dry, normal turgor, no rashes or lesions noted. Laboratory Results - last 24 hr 01/21/17 01/22/17 01/22/17 11:00 05:15 05:15 WBC 4.0 D RBC 3.57 L D Hgb 10.2 L D Hct 31.7 L D MCV 89.0 MCH 28.5 MCHC 32.0 RDW 17.3 H Plt Count 72 L MPV 9.5 Neutrophils % 71.5 Lymphocytes % 11.8 D Monocytes % 11.2 H Eosinophils % 4.4 D Basophils % 1.1 INR 1.67 H Sodium Potassium Chloride Carbon Dioxide Anion Gap BUN Creatinine Creat Clearance w eGFR POC Glucometer Random Glucose Calcium Total Bilirubin AST ALT Alkaline Phosphatase Total Protein Albumin Hepatitis C Antibody 0.2 01/22/17 01/22/17 05:15 06:18 WBC RBC Hgb Hct MCV MCH MCHC RDW Plt Count MPV Neutrophils % Lymphocytes % Monocytes % Eosinophils % Basophils % INR Sodium 136 Potassium 4.0 Chloride 94 L Carbon Dioxide 30 D Anion Gap 12 BUN 58 H D Creatinine 7.3 H Creat Clearance w eGFR 7.64 POC Glucometer [phone] Random Glucose 256 H D Calcium 8.1 L Total Bilirubin 0.5 D AST 14 L ALT 22 Alkaline Phosphatase 87 Total Protein 6.7 Albumin 3.2 L Hepatitis C Antibody Active Medications Generic Name Dose Route Start Last Admin Trade Name Freq PRN Reason Stop Dose Admin Acetaminophen 650 mg 01/21/17 07:22 01/22/17 14:13 Tylenol - PO 650 mg Q6H PRN Administration PAIN Amiodarone HCl 200 mg 01/21/17 10:00 01/22/17 09:23 Cordarone - PO 200 mg DAILY [facility] Administration Gentamicin Sulfate 1 applic 01/22/17 10:00 01/22/17 09:24 Garamycin 0.1% Ointment - TP 1 applic BID [facility] Administration Insulin Aspart 1 units 01/21/17 17:45 01/22/17 06:30 Novolog Vial SQ 6 units BIDAC [facility] Administration Protocol Insulin Detemir 15 units 01/22/17 07:45 01/22/17 08:39 Levemir Vial SQ 15 units DAILY@0700 [facility] Administration Levothyroxine Sodium 75 mcg 01/22/17 07:00 01/22/17 06:29 Synthroid - PO 75 mcg DAILY@0700 [facility] Administration Midodrine 10 mg 01/21/17 10:00 01/22/17 09:23 Proamatine - PO 10 mg DAILY [facility] Administration Oxycodone HCl 10 mg 01/21/17 07:22 01/22/17 14:13 Roxicodone - PO 10 mg Q6H PRN Administration PAIN Polyethylene Glycol 17 gm 01/21/17 10:00 01/22/17 09:24 Miralax (For Daily Use) - PO 17 gm BID [facility] Administration Sucralfate 1 gm 01/21/17 10:00 01/22/17 09:23 Carafate - PO 1 gm BID [facility] Administration Warfarin Sodium 4 mg 01/21/17 18:00 01/21/17 17:14 Coumadin - PO 4 mg DAILY@1800 [facility] Administration ASSESSMENT/PLAN: Assessment 61 yo man w/ pmh of Afib w/RVR, ESRD, CAD, CHF, anemia, hypothyroidism who presented with sudden onset weakness, BL UE paralysis, dysarthria and suspected LOC during evening dialysis session, now w/ + blood cx's for gram positive cocci in clusters. Pt appears non-infectious, w/ no elevation in WBC's, left shift or fever. PE unremarkable. Imaging notable for RLL density, but no interval change from prior cxr's. However, given multiple possible cutaneous infectious sources (A/V fistula, PPM and decubitus ulcer), recommend coverage f/ u blood cx's and coverage for gram positive organisms. Problem list: ESRD Afib w/RVR Bacteremia Hypothyroidism Anemia Chronic Thrombocytopenia Plan #Suspected gram positive bacteremia - Repeat blood cx's - Vancomycin 1mg once. Reassess after blood cx results - CRP, ESR - Trend fever curve, WBC - Monitor for infectious symptoms - f/u CXR results #Decubitus ulcer - Interval monitoring for erythema/calor Kai Allen MD, PGY1 Plan discussed with attending, Dr. Mena Dispo: We will continue to follow the patient. Thank you for this consultative opportunity. Visit type - Emergency Visit Emergency Visit: No - New Patient This patient is new to me today: Yes Date on this admission: 01/22/17 - Critical Care Critical Care patient: No
[2017-01-22 16:17] LABS: C-REACTIVE PROTEIN 0.8 MG/DL (0.00-0.3)
--- NOTE | 2017-01-22 16:25 | PN ---
Teaching Attending Note Name of Resident: Kai Allen ATTENDING PHYSICIAN STATEMENT I saw and evaluated the patient. I reviewed the resident's note and discussed the case with the resident. I agree with the resident's findings and plan as documented. SUBJECTIVE: feels well no fevers or chills hyperkalemia resolved feels well OBJECTIVE: Vital Signs Period Temp Pulse Resp BP Sys/Lopez Pulse Ox Last 24 Hr 97 F-98.2 F 56-64 13-22 87-121/44-85 100 cor-rrr lungs clear abd soft,nt ext no edema Right AVF- no erythema Left PPM-no erythema small heel erosion right-no drainage, no erythema CBC, BMP 01/22/17 05:15 01/22/17 05:15 Microbiology 01/21/17 01:30 Blood - Peripheral Venous Blood Culture - Preliminary Pending Organism 01/21/17 01:30 Blood - Peripheral Venous Blood Culture - Preliminary NO GROWTH OBTAINED AFTER 24 HOURS, INCUBATION TO CONTINUE FOR 4 DAYS. ASSESSMENT AND PLAN: positive blood culture- well-appearing, no fevers or leukocytosis, repeat blood cultures, vancomycin after blood cultures are drawn has PPM and small heel erosion esrd/hd cad with PPM
[2017-01-22] MEDS ORDERED: VANCOMYCIN 1 GRAM (PRE-DOCKED) 1,000 MG/250 ML BAG IVPB ONE (16:26)
[2017-01-22] MEDS: WARFARIN NA 2 MG TABLET (UD) PO SCH (17:53)
--- NOTE | 2017-01-22 18:28 | PN ---
Progress Note (short form) - Note Progress Note: RENAL ALL NOTES REVIEWED HAD EMERGENT HD SUN FOR K 7.2 IT WAS 5.6 A WEEK BACK REPEAT HD TODAY 3 HR K2 CA2.5 [facility] 2.5 KG WILL DO SHORT TREATMENT [place] IF CULTURES NEG DC HOME GETTING 1 DOSE VANCO NOW NO FEVERS NO OVERT SOURCE RIGHT NOW ON REVIEW DID HAVE APRICOTS THOSE ARE HIGH IN K WILL NEED TO BE ON KAYEXALATE 15GM MWF CASE D/W PT AND SON IN DETAIL
[2017-01-22] MEDS ORDERED: EPOETIN ALFA 2,000 UNITS/1 ML VIAL SQ ONE (18:31)
[2017-01-22] MEDS: GENTAMICIN SO4 0.1% TOPICAL OINTMENT 15 GM/TUBE TUBE TP SCH (21:13)
[2017-01-23] MEDS: INSULIN DETEMIR 100 UNITS/ML MDV SQ SCH (06:29)
[2017-01-23] MEDS: INSULIN (NOVOLOG) ASPART 100 UNITS/ML 10ML VIAL SQ SCH ×2 (06:31→17:18)
[2017-01-23] MEDS: LEVOTHYROXINE NA 75 MCG TABLET (FP) PO SCH (06:34)
[2017-01-23] MEDS: ACETAMINOPHEN 325 MG TABLET (FP) PO PRN ×3 (07:52→21:27)
[2017-01-23] MEDS: oxyCODONE HCL 5 MG TABLET PO PRN ×3 (07:53→21:12)
--- NOTE | 2017-01-23 08:37 | PN ---
Physical Exam: SUBJECTIVE: 61 year old male w/ pmh ESRD (T/malena/Sat), COPD, CAD s/p CABG, CVA, CHF, DM, HTN , HLD admitted to ICU with chest pain/weakness + hyperkalemia (7.2) for emergent HD (Cre 0.7). His potassium had normalized. Pt had a positive blood cx. 2 more cultures were drawn and pt was given 1 gm vanco. Pt complains of headache and generalized body pains (pt states he takes oxycodone frequently). Pt denies any shortness of breath, CP, fevers, chills, nausea, vomiting. Pt refuses labs and IV. Scheduled for dialysis today. OBJECTIVE: Vital Signs Period Temp Pulse Resp BP Sys/Lopez Pulse Ox Last 24 Hr 97.1 F-98.2 F 60-68 15-20 90-142/44-72 GENERAL: The patient is awake, alert, and fully oriented, in no acute distress. HEAD: Normal with no signs of trauma. EYES: PERRL, extraocular movements intact, sclera anicteric, conjunctiva clear. No ptosis. ENT: Ears normal, nares patent, oropharynx clear without exudates, moist mucous membranes. NECK: Trachea midline, full range of motion, supple. LUNGS: Breath sounds equal, clear to auscultation bilaterally, no wheezes, no crackles, no accessory muscle use. HEART: Regular rate and rhythm, S1, S2 without murmur, rub or gallop. ABDOMEN: Soft, nontender, nondistended, normoactive bowel sounds, no guarding, no rebound, no hepatosplenomegaly, no masses. EXTREMITIES: 2+ pulses, warm, well-perfused, no edema. NEUROLOGICAL: Cranial nerves II through XII grossly intact. Normal speech, gait not observed. PSYCH: Normal mood, normal affect. SKIN: Warm, dry, normal turgor, no rashes or lesions noted CBC, BMP 01/23/17 11:45 01/23/17 11:45 Active Medications Generic Name Dose Route Start Last Admin Trade Name Freq PRN Reason Stop Dose Admin Acetaminophen 650 mg 01/22/17 15:51 01/23/17 07:52 Tylenol - PO 650 mg Q6H PRN Administration PAIN Amiodarone HCl 200 mg 01/23/17 10:00 Cordarone - PO DAILY RACHEL Epoetin Chevy 5,000 units 01/22/17 18:31 Epogen - SQ 01/22/17 18:32 ONCE ONE Gentamicin Sulfate 1 applic 01/22/17 22:00 01/22/17 21:13 Garamycin 0.1% Ointment - TP 1 applic BID RACHEL Administration Insulin Aspart 1 units 01/22/17 16:30 01/23/17 06:31 Novolog Vial SQ 1 units BIDAC RACHEL Administration Protocol Insulin Detemir 15 units 01/23/17 07:00 01/23/17 06:29 Levemir Vial SQ 15 units DAILY@0700 RACHEL Administration Levothyroxine Sodium 75 mcg 01/23/17 07:00 01/23/17 06:34 Synthroid - PO 75 mcg DAILY@0700 RACHEL Administration Midodrine 10 mg 01/23/17 10:00 Proamatine - PO DAILY RACHEL Oxycodone HCl 10 mg 01/22/17 15:51 01/23/17 07:53 Roxicodone - PO 10 mg Q6H PRN Administration PAIN Polyethylene Glycol 17 gm 01/22/17 22:00 01/22/17 21:15 Miralax (For Daily Use) - PO Not Given BID RACHEL Sucralfate 1 gm 01/22/17 22:00 01/22/17 21:13 Carafate - PO 1 gm BID RACHEL Administration Warfarin Sodium 4 mg 01/22/17 18:00 01/22/17 17:53 Coumadin - PO 4 mg DAILY@1800 RACHEL Administration CXR: no acute pulmonary dz, pacemaker present ASSESSMENT/PLAN: 61 year old male w/ symptomatic hyperkalemia and ESRD s/p emergent HD Cardiovascular: pt baseline bradycardic on pacemaker -monitor BP, HR -continue amiodarone 200mg PO -cont warfarin 4mg PO -pt refused AM labs, drawn in dialysis ID: blood cx positive for gram (+) in clusters -2x cultures were drawn -pt was given 1gm vancomycin -pt followed by ID Renal: f/u BUN/Cre from labs drawn in dialysis -monitor I/Os -continue insulin detemir, aspart -scheduled for dialysis today FEN: -potassium normalized to 4 yesterday, -patient is on potassium-diet -counseled on importance of adhering to diet and avoiding high potassium foods Dispo: -called Cecilia Rahman about DC pt from hospital - wants to keep due to (+) blood culture -stable for transfer to med-surg Problem List - Problems (1) Hyperkalemia Code(s): E87.5 - HYPERKALEMIA (2) Precordial chest pain Code(s): R07.2 - PRECORDIAL PAIN (3) ESRD (end stage renal disease) Code(s): N18.6 - END STAGE RENAL DISEASE Visit type - Emergency Visit Emergency Visit: No - New Patient This patient is new to me today: No - Critical Care Critical Care patient: Yes Total Critical Care Time (in minutes): 45 Critical Care Statement: The care of this patient involved high complexity decision making to prevent further life threatening deterioration of the patient 's condition and/or to evalute & treat vital organ system(s) failure or risk of failure.
--- NOTE | 2017-01-23 08:53 | CONS ---
DATE OF CONSULTATION: 01/21/2017 REQUESTING PHYSICIAN: Cecilia Teran MD CHIEF COMPLAINT: Generalized weakness, cardiovascular evaluation. HISTORY OF PRESENT ILLNESS: A 61-year-old male of [place] with known history of coronary artery disease status post percutaneous coronary intervention and stenting, status post coronary artery bypass grafting, angina pectoris, systolic left ventricular dysfunction related o ischemic dilated cardiomyopathy post ICD implantation, Medtronic device, hypertensive cardiovascular disease, currently hypotensive on midodrine therapy, diabetes mellitus, hypercholesterolemia, chronic obstructive pulmonary disease, end-stage renal disease on hemodialysis, who presented to [facility] with questionable syncopal episode during hemodialysis session, and generalized weakness. Upon arrival to the emergency room, patient was noted to have profound hyperkalemia requiring therapy. Patient currently is being dialyzed. Denies any chest discomfort. Denies any dyspnea, orthopnea, paroxysmal nocturnal dyspnea, or peripheral edema. Patient denies any palpitation, dizziness, lightheadedness, or syncope. Rhythm currently is sinus with an intraventricular conduction delay. PAST MEDICAL HISTORY: Coronary artery disease status post percutaneous coronary intervention and stenting, status post coronary artery bypass grafting; angina pectoris; systolic left ventricular dysfunction related to ischemic dilated cardiomyopathy, post ICD implantation, Medtronic device; hypertensive cardiovascular disease, currently hypotensive, on midodrine therapy; diabetes mellitus; hypercholesterolemia; chronic obstructive pulmonary disease; end-stage renal disease on hemodialysis; chronic liver disease. SOCIAL HISTORY: Denies alcohol intake. Denies tobacco abuse. FAMILY HISTORY: Positive coronary artery disease. ALLERGIES: None reported. MEDICAL THERAPY: Currently includes acetaminophen 650 mg every 6 hours as needed, amiodarone 200 mg once a day, insulin as prescribed, levothyroxine 75 mcg once a day, midodrine 10 mg once a day, oxycodone 10 mg every 6 hours as needed, MiraLAX 17 g twice a day, Carafate 1 g twice a day, Coumadin as prescribed. REVIEW OF SYSTEMS: Head and Neck: Denies headache, photophobia, blurring of vision. Respiratory: No cough or sputum production. Cardiovascular: As noted above. Gastrointestinal: Denies nausea, vomiting, diarrhea, abdominal discomfort. Genitourinary: On hemodialysis. PHYSICAL EXAMINATION: Vital Signs: Blood pressure is 82/53 mmHg. Pulse rate is 71 beats per minute. Head and Neck: Pupils equal, reactive to light and accommodation. Extraocular muscles are intact. Anicteric sclerae. Negative JVD. No bruit appreciated. Chest: Diminished breath sounds at the bases bilaterally. Cardiovascular: S1, S2 regular. Occasional ectopics. Grade 2/6 systolic apical murmur. No gallops. Abdomen: Soft, benign. Normoactive bowel sounds. Extremities: Negative edema. Intact distal pulses. No calf tenderness. Electrocardiogram revealed wide complex rhythm at 73. Chest x-ray report was noted. CBC revealed white cell count 9.1, hemoglobin 12.8, platelet count 85. Basic metabolic profile revealed sodium 134, potassium 4.5. Initial potassium was 7.2. BUN 84, creatinine 8.1. Glucose 139. ASSESSMENT: 1. Generalized weakness, unclear if syncopal episode during hemodialysis session. 2. Hyperkalemia related to incomplete hemodialysis session. 3. Coronary artery disease post myocardial infarction, post percutaneous coronary intervention and stenting, post coronary artery bypass grafting, angina pectoris with prior history of demand ischemic injury. 4. Ischemic dilated cardiomyopathy. 5. Paroxysmal atrial fibrillation, CHADS-VASc score of 4, currently in sinus rhythm on anticoagulation therapy. 6. History of syncope, referable to sustained ventricular tachycardia/ ventricular fibrillation. 7. Post Medtronic implantable cardioverter-defibrillator implantation. 8. History of hypertension, currently hypotensive on midodrine therapy. 9. Diabetes mellitus. 10. History of hypothyroidism. 11. End-stage renal disease on hemodialysis. 12. Thrombocytopenia. PLAN: 1. Ideally, patient should be on carvedilol and SILVIA inhibitor or angiotensin receptor mateus therapies, but limitation if symptomatic hypotension. 2. Continuation of amiodarone with caution. 3. Coumadin as per INR with caution. 4. Continuation of midodrine therapy. 5. Hemodialysis as per renal service. Thank you for the kind referral. MIGUEL VALDIVIA M.D. RADHA/[id number] MTDD
[2017-01-23] MEDS ORDERED: PT OWN MED DRAWER 7, Y5N ONE (09:08)
[2017-01-23] MEDS: MIDODRINE HCL 5 MG TABLET PO SCH (09:19)
[2017-01-23] MEDS: AMIODARONE HCL 200 MG TABLET (FP) PO SCH (09:19)
[2017-01-23] MEDS: SUCRALFATE 1 GM TABLET (FP) PO SCH ×2 (09:19→21:12)
[2017-01-23] MEDS: POLYETHYLENE GLYCOL 3350 119 GM BTL PO SCH ×2 (09:19→21:12)
[2017-01-23] MEDS: GENTAMICIN SO4 0.1% TOPICAL OINTMENT 15 GM/TUBE TUBE TP SCH ×2 (09:22→23:23)
[2017-01-23] MEDS ORDERED: diphenhydrAMINE HCL 25 MG CAPSULE (FP) PO PRN (11:29)
--- NOTE | 2017-01-23 11:36 | PN ---
Progress Note (short form) - Note Progress Note: No new complaints. labs being drawn for labs now repeat BCx were drawn yesterday-still P 1 bottle staph Vital Signs Period Temp Pulse Resp BP Sys/Lopez Pulse Ox Last 24 Hr 97.1 F-98.0 F 60-68 17-20 90-142/44-72 S1S2 RRR lungs cta abd distended no edema right heel stage 2 ulcer nonfocal exam Imp staph bacteremia Hyperkalemia ESRD IDDM parox Afib dilated cardiomyopathy CAD hypotension Plan HD today will have to be treated for staph + blood culture abx as per ID-will redose vanco may transfer to medical floor will follow Problem List - Problems (1) Coronary artery disease Code(s): I25.10 - ATHSCL HEART DISEASE OF [place] CORONARY ARTERY W/O ANG PCTRS Qualifiers: Qualified Code(s): I25.10 - Atherosclerotic heart disease of [place] coronary artery without angina pectoris (2) Diabetes mellitus Code(s): E11.9 - TYPE 2 DIABETES MELLITUS WITHOUT COMPLICATIONS Qualifiers: Qualified Code(s): E10.22 - Type 1 diabetes mellitus with diabetic chronic kidney disease; N18.1 - Chronic kidney disease, stage 1 (3) HTN (hypertension) Code(s): I10 - ESSENTIAL (PRIMARY) HYPERTENSION Qualifiers: Qualified Code(s): I10 - Essential (primary) hypertension (4) Hyperkalemia Code(s): E87.5 - HYPERKALEMIA (5) Hypothyroidism Code(s): E03.9 - HYPOTHYROIDISM, UNSPECIFIED Qualifiers: Qualified Code(s): E03.9 - Hypothyroidism, unspecified (6) Ischemic dilated cardiomyopathy Code(s): I25.5 - ISCHEMIC CARDIOMYOPATHY (7) Atrial fibrillation Code(s): I48.91 - UNSPECIFIED ATRIAL FIBRILLATION Qualifiers: Qualified Code(s): I48.1 - Persistent atrial fibrillation (8) Cirrhosis Code(s): K74.60 - UNSPECIFIED CIRRHOSIS OF LIVER Qualifiers: Qualified Code(s): K74.60 - Unspecified cirrhosis of liver (9) ESRD (end stage renal disease) Code(s): N18.6 - END STAGE RENAL DISEASE (10) S/P CABG (coronary artery bypass graft) Code(s): Z95.1 - PRESENCE OF AORTOCORONARY BYPASS GRAFT
[2017-01-23 12:28] LABS: MCH 28.6 pg (25.7-33.7); MCHC 32.2 g/dl (32.0-35.9); PLATELET COUNT 72 K/MM3 (134-434); RDW 17.3 % (11.9-15.9); WHITE BLOOD COUNT 5.5 K/mm3 (4.0-10.0)
--- NOTE | 2017-01-23 13:12 | PN ---
Teaching Attending Note Name of Resident: Arnaldo Mesa ATTENDING PHYSICIAN STATEMENT I saw and evaluated the patient. I reviewed the resident's note and discussed the case with the resident. I agree with the resident's findings and plan as documented. SUBJECTIVE: Feels overall better. No CP or SOB. No acute events overnight. Noted 1 blood culture was (+) for MSSA. Repeat cultures sent last night. Intake & Output 01/20/17 01/21/17 01/22/17 01/23/17 23:59 23:59 23:59 23:59 Intake Total 530 1400 350 Output Total 0 Balance 530 1400 350 Weight 158 lb 11.725 oz Last Vital Signs Temp Pulse Resp BP Pulse Ox 97.4 F L 64 18 114/62 100 01/23/17 10:00 01/23/17 12:28 01/23/17 12:28 01/23/17 12:28 01/21/17 20:47 Active Medications Acetaminophen (Tylenol -) 650 mg PO Q6H PRN PRN Reason: PAIN Last Admin: 01/23/17 07:52 Dose: 650 mg Amiodarone HCl (Cordarone -) 200 mg PO DAILY [facility] Last Admin: 01/23/17 09:19 Dose: 200 mg Diphenhydramine HCl (Benadryl Injection -) 25 mg IVPUSH DAILY PRN PRN Reason: FOR ITCHING Epoetin Chevy (Epogen -) 5,000 units SQ ONCE ONE Stop: 01/22/17 18:32 Gentamicin Sulfate (Garamycin 0.1% Ointment -) 1 applic TP BID [facility] Last Admin: 01/23/17 09:22 Dose: 1 applic Insulin Aspart (Novolog Vial) 1 units SQ BIDAC [facility] PRN Reason: Protocol Last Admin: 01/23/17 06:31 Dose: 1 units Insulin Detemir (Levemir Vial) 15 units SQ DAILY@0700 [facility] Last Admin: 01/23/17 06:29 Dose: 15 units Levothyroxine Sodium (Synthroid -) 75 mcg PO DAILY@0700 [facility] Last Admin: 01/23/17 06:34 Dose: 75 mcg Midodrine (Proamatine -) 10 mg PO DAILY [facility] Last Admin: 01/23/17 09:19 Dose: 10 mg Oxycodone HCl (Roxicodone -) 10 mg PO Q6H PRN PRN Reason: PAIN Last Admin: 01/23/17 07:53 Dose: 10 mg Polyethylene Glycol (Miralax (For Daily Use) -) 17 gm PO BID [facility] Last Admin: 01/23/17 09:19 Dose: 17 grams Sucralfate (Carafate -) 1 gm PO BID [facility] Last Admin: 01/23/17 09:19 Dose: 1 gm Warfarin Sodium (Coumadin -) 4 mg PO DAILY@1800 [facility] Last Admin: 01/22/17 17:53 Dose: 4 mg Constitutional: Yes: No Distress Eyes: Yes: (-) Icterus/Pallor HENT: Yes: Other (Partially adentulous.) Neck: Yes: Supple, Trachea Midline Cardiovascular: Yes: Other (Regular rate. No m/r/g appreciated.) Respiratory: Yes: Few fine basilar rales Gastrointestinal: Yes: Normal Bowel Sounds, Distention Renal/: Yes: Anuria Integumentary: Yes: Venous Stasis Changes, Other (R heel diabetic ulcer. Sacral stage II.) Neurological: Yes: Alert, Oriented Psychiatric: Yes: WNL Labs: Laboratory Results - last 24 hr 01/21/17 01/22/17 01/22/17 11:00 05:15 16:47 WBC RBC Hgb Hct MCV MCH MCHC RDW Plt Count MPV Sodium 136 Potassium 4.0 Chloride 94 L Carbon Dioxide 30 D Anion Gap 12 BUN 58 H D Creatinine 7.3 H Creat Clearance w eGFR 7.64 POC Glucometer [phone] Random Glucose 256 H D Calcium 8.1 L Total Bilirubin 0.5 D AST 14 L ALT 22 Alkaline Phosphatase 87 C-Reactive Protein 0.8 H Total Protein 6.7 Albumin 3.2 L Hepatitis C Antibody 0.2 01/23/17 01/23/17 06:19 11:45 WBC 5.5 D RBC 3.78 L Hgb 10.8 L Hct 33.6 L MCV 89.0 MCH 28.6 MCHC 32.2 RDW 17.3 H Plt Count 72 L MPV 9.0 Sodium Potassium Chloride Carbon Dioxide Anion Gap BUN Creatinine Creat Clearance w eGFR POC Glucometer [phone] Random Glucose Calcium Total Bilirubin AST ALT Alkaline Phosphatase C-Reactive Protein Total Protein Albumin Hepatitis C Antibody Problem List - Problems (1) Hyperkalemia Code(s): E87.5 - HYPERKALEMIA Assessment/Plan ESRD (//Sun) COPD CAD S/P CABG CVA CHF IDDM HTN HLD HD per renal Midodrine with HD SCDs for DVT prophylaxis Follow repeat cultures Dr Fuller
[2017-01-23 13:24] LABS: ALBUMIN 3.2 g/dl (3.4-5.0); ALK PHOS 90 U/L (45-117); ANION GAP 12 (8-16); BILIRUBIN,TOTAL 0.4 mg/dL (0.2-1.0); CALCIUM 8.6 mg/dL (8.5-10.1); CO2 27 mmol/L (21-32); CREATININE 6.5 mg/dL (0.7-1.3); GLUCOSE,RANDOM 132 mg/dL (74-106); SGOT/AST 20 U/L (15-37); SGPT/ALT 23 U/L (12-78)
[2017-01-23] MEDS ORDERED: VANCOMYCIN 1 GRAM (PRE-DOCKED) 250 ML IVPB ONE (13:30)
--- NOTE | 2017-01-23 16:40 | PN ---
Teaching Attending Note Name of Resident: Kai Allen ATTENDING PHYSICIAN STATEMENT I saw and evaluated the patient. I reviewed the resident's note and discussed the case with the resident. I agree with the resident's findings and plan as documented. SUBJECTIVE: no complaints other then right hand swelling from Iv line, OBJECTIVE: Vital Signs Period Temp Pulse Resp BP Sys/Lopez Pulse Ox Last 24 Hr 97.1 F-97.9 F 61-68 18-20 96-142/47-90 cor-rrr lungs clear abd soft,nt ext no edema CBC, BMP 01/23/17 11:45 01/23/17 11:45 Microbiology 01/22/17 16:00 Blood - Peripheral Venous Blood Culture - Preliminary NO GROWTH OBTAINED AFTER 24 HOURS, INCUBATION TO CONTINUE FOR 4 DAYS. 01/22/17 16:00 Blood - Peripheral Venous Blood Culture - Preliminary NO GROWTH OBTAINED AFTER 24 HOURS, INCUBATION TO CONTINUE FOR 4 DAYS. 01/21/17 01:30 Blood - Peripheral Venous Blood Culture - Preliminary Presumptive Mssa (Pbp2a Neg) 01/21/17 01:30 Blood - Peripheral Venous Blood Culture - Preliminary NO GROWTH OBTAINED AFTER 48 HOURS, INCUBATION TO CONTINUE FOR 3 DAYS. ASSESSMENT AND PLAN: bacteremia- presumptive Staph aureus!- received vancomycin earlier today with HD , no peripheral access, f/u ID and sensi in am skin source most likely, plan cefazolin with next HD repeat blood cultures pending esr/crp/echo AICD esrd/hd will d/w cardiology and PMD in am
[2017-01-23] MEDS: WARFARIN NA 2 MG TABLET (UD) PO SCH (17:11)
--- NOTE | 2017-01-23 17:15 | PN ---
Physical Exam: SUBJECTIVE: Patient seen and examined by me in the PM - Received HD today - Afebrile, w/ no elevated WBC still. Blood cx + for MSSA. Suspicion for cutaneous sources, either heel ulcer or a/v fistula site - Feels well with no complaints. No overnight events. - Received another dose of vancomycin today. OBJECTIVE: Vital Signs Period Temp Pulse Resp BP Sys/Lopez Pulse Ox Last 24 Hr 97.1 F-97.9 F 61-68 18-20 96-142/47-90 GENERAL: Awake, alert, and fully oriented, in no acute distress. HEAD: Normal with no signs of trauma. Alopecia. No temporal arteritis or wasting. EYES: Pupils equal, round and reactive to light, sclera anicteric, conjunctiva clear. No lid lag. R eye lateral deviation. EARS, NOSE, THROAT: Ears normal, nares patent, oropharynx clear without exudates. Moist mucous membranes. NECK: No lymphadenopathy, JVD, or masses. LUNGS: Breath sounds equal, clear to auscultation bilaterally. No wheezes and no crackles. No accessory muscle use. HEART: Distant heart sounds. Regular rate and rhythm, normal S1 and S2 without murmur, rub or gallop. ABDOMEN: Soft, nontender, mildly distended, normoactive bowel sounds, no guarding, no rebound, no masses. Mild umbilical hernia. No hepatomegaly or splenomegaly. MUSCULOSKELETAL: No bony deformities or tenderness. No CVA tenderness. UPPER EXTREMITIES: 2+ pulses, warm, well-perfused. No cyanosis. No clubbing. Cap refill <2 seconds. No peripheral edema. LOWER EXTREMITIES: 2+ pulses, warm, well-perfused. No calf tenderness. No peripheral edema. Grade 2 decubitus ulcer on R ankle, covered w/ bandage. NEUROLOGICAL: Cranial nerves II-XII grossly intact. Normal speech. Gait not evaluated due to pt refusal. PSYCHIATRIC: Cooperative. Good eye contact. Appropriate mood and affect. SKIN: Warm, dry, normal turgor Laboratory Results - last 24 hr CBC, BMP 01/23/17 11:45 01/23/17 11:45 01/23/17 01/23/17 01/23/17 06:19 11:45 11:45 WBC 5.5 D RBC 3.78 L Hgb 10.8 L Hct 33.6 L MCV 89.0 MCH 28.6 MCHC 32.2 RDW 17.3 H Plt Count 72 L MPV 9.0 PTT (Actin FS) Sodium 134 L Potassium 4.1 Chloride 95 L Carbon Dioxide 27 Anion Gap 12 BUN 47 H Creatinine 6.5 H Creat Clearance w eGFR 8.73 POC Glucometer [phone] Random Glucose 132 H D Calcium 8.6 Total Bilirubin 0.4 AST 20 D ALT 23 Alkaline Phosphatase 90 Total Protein 7.0 Albumin 3.2 L Random Vancomycin 01/23/17 01/23/17 01/23/17 11:45 11:45 16:42 WBC RBC Hgb Hct MCV MCH MCHC RDW Plt Count MPV PTT (Actin FS) 34.2 Sodium Potassium Chloride Carbon Dioxide Anion Gap BUN Creatinine Creat Clearance w eGFR POC Glucometer 276.63908 Random Glucose Calcium Total Bilirubin AST ALT Alkaline Phosphatase Total Protein Albumin Random Vancomycin 14.500 Microbiology 01/22/17 16:00 Blood Culture - Preliminary Blood - Peripheral Venous NO GROWTH OBTAINED AFTER 24 HOURS, INCUBATION TO CONTINUE FOR 4 DAYS. 01/22/17 16:00 Blood Culture - Preliminary Blood - Peripheral Venous NO GROWTH OBTAINED AFTER 24 HOURS, INCUBATION TO CONTINUE FOR 4 DAYS. 01/21/17 01:30 Blood Culture - Preliminary Blood - Peripheral Venous Presumptive Mssa (Pbp2a Neg) 01/21/17 01:30 Blood Culture - Preliminary Blood - Peripheral Venous NO GROWTH OBTAINED AFTER 48 HOURS, INCUBATION TO CONTINUE FOR 3 DAYS. Active Medications Generic Name Dose Route Start Last Admin Trade Name Freq PRN Reason Stop Dose Admin Acetaminophen 650 mg 01/22/17 15:51 01/23/17 15:23 Tylenol - PO 650 mg Q6H PRN Administration PAIN Amiodarone HCl 200 mg 01/23/17 10:00 01/23/17 09:19 Cordarone - PO 200 mg DAILY RACHEL Administration Diphenhydramine HCl 25 mg 01/23/17 11:46 Benadryl Injection - IVPUSH DAILY PRN FOR ITCHING Epoetin Chevy 5,000 units 01/22/17 18:31 Epogen - SQ 01/22/17 18:32 ONCE ONE Gentamicin Sulfate 1 applic 01/22/17 22:00 01/23/17 09:22 Garamycin 0.1% Ointment - TP 1 applic BID RACHEL Administration Insulin Aspart 1 units 01/22/17 16:30 07/18/17 06:31 Novolog Vial SQ 1 units BIDAC RACHEL Administration Protocol Insulin Detemir 15 units 01/23/17 07:00 01/23/17 06:29 Levemir Vial SQ 15 units DAILY@0700 RACHEL Administration Levothyroxine Sodium 75 mcg 01/23/17 07:00 01/23/17 06:34 Synthroid - PO 75 mcg DAILY@0700 RACHEL Administration Midodrine 10 mg 01/23/17 10:00 01/23/17 09:19 Proamatine - PO 10 mg DAILY RACHEL Administration Oxycodone HCl 10 mg 01/22/17 15:51 01/23/17 15:23 Roxicodone - PO 10 mg Q6H PRN Administration PAIN Polyethylene Glycol 17 gm 01/22/17 22:00 01/23/17 09:19 Miralax (For Daily Use) - PO 17 grams BID RACHEL Administration Sucralfate 1 gm 01/22/17 22:00 01/23/17 09:19 Carafate - PO 1 gm BID RACHEL Administration Warfarin Sodium 4 mg 01/22/17 18:00 01/22/17 17:53 Coumadin - PO 4 mg DAILY@1800 RACHEL Administration ASSESSMENT/PLAN: 61 yo man w/ pmh of Afib w/RVR, ESRD, CAD, CHF, anemia, hypothyroidism who presented with sudden onset weakness, BL UE paralysis, dysarthria and suspected LOC during evening dialysis session, now w/ + blood cx's for MSSA. Pt continues to appear non-infectious, w/ no elevation in WBC's, left shift or fever. Multiple possible sources for bacteremia (A/V fistula, PPM and decubitus ulcer) . Consider endocarditis, as well. Plan to follow-up blood cultures and transition to abx coverage for likely cutaneous infection source. Problem list: ESRD Afib w/RVR Bacteremia Hypothyroidism Anemia Chronic Thrombocytopenia Plan #Gram positive bacteremia - f/u blood cx's - Plan to start on cefazolin following blood cx results - CRP, ESR - Trend fever curve, WBC - Monitor for infectious symptoms - ECHO to r/o endocarditis #Decubitus ulcer - Interval monitoring for erythema/calor/rubor - Dressing changes - Counseling provided on proper foot hygiene Kai Allen MD, PGY1 Plan discussed with attending, Dr. Mena Visit type - Emergency Visit Emergency Visit: No - New Patient This patient is new to me today: No - Critical Care Critical Care patient: No
--- NOTE | 2017-01-23 18:43 | PN ---
Progress Note, Physician Chief Complaint: Events noted Being transferred out of ICU Not in distress History of Present Illness: Patient was seen and examined. Awake and alert. Chart was reviewed Denies chest pain, SOB or palpitations - Current Medication List Current Medications: Active Medications Acetaminophen (Tylenol -) 650 mg PO Q6H PRN PRN Reason: PAIN Last Admin: 01/23/17 15:23 Dose: 650 mg Amiodarone HCl (Cordarone -) 200 mg PO DAILY [facility] Last Admin: 01/23/17 09:19 Dose: 200 mg Diphenhydramine HCl (Benadryl Injection -) 25 mg IVPUSH DAILY PRN PRN Reason: FOR ITCHING Epoetin Chevy (Epogen -) 5,000 units SQ ONCE ONE Stop: 01/22/17 18:32 Gentamicin Sulfate (Garamycin 0.1% Ointment -) 1 applic TP BID [facility] Last Admin: 01/23/17 09:22 Dose: 1 applic Insulin Aspart (Nov[facility] Vial Sliding Scale -) [facility] Reason: Protocol Insulin Detemir (Levemir Vial) 15 units SQ DAILY@0700 [facility] Last Admin: 01/23/17 06:29 Dose: 15 units Levothyroxine Sodium (Synthroid -) 75 mcg PO DAILY@0700 [facility] Last Admin: 01/23/17 06:34 Dose: 75 mcg Midodrine (Proamatine -) 10 mg PO DAILY [facility] Last Admin: 01/23/17 09:19 Dose: 10 mg Oxycodone HCl (Roxicodone -) 10 mg PO Q6H PRN PRN Reason: PAIN Last Admin: 01/23/17 15:23 Dose: 10 mg Polyethylene Glycol (Miralax (For Daily Use) -) 17 gm PO BID [facility] Last Admin: 01/23/17 09:19 Dose: 17 grams Sucralfate (Carafate -) 1 gm PO BID [facility] Last Admin: 01/23/17 09:19 Dose: 1 gm Warfarin Sodium (Coumadin -) 4 mg PO DAILY@1800 [facility] Last Admin: 01/23/17 17:11 Dose: 4 mg - Objective Vital Signs: Vital Signs Temperature 97.9 F 01/23/17 11:40 Pulse Rate 68 01/23/17 15:50 Respiratory Rate 18 01/23/17 15:50 Blood Pressure 98/47 01/23/17 15:50 O2 Sat by Pulse Oximetry (%) 100 01/21/17 20:47 Neck: Yes: Supple Cardiovascular: Yes: Regular Rate and Rhythm, Murmur (2/6 SM), S1, S2 Respiratory: Yes: Diminished Gastrointestinal: Yes: Normal Bowel Sounds, Distention. No: Tenderness Edema: No Labs: CBC, BMP 01/23/17 11:45 01/23/17 11:45 INR, PTT INR 1.67 (0.82-1.09) H 01/22/17 05:15 Assessment/Plan 1. Generalized weakness with possible syncopal episode during HD 2. Hyperkalemia now normal 3. CAD post ME/PCI(stent)/CABG, angina pectoris with history of demand ischemic injury 4. Ischemic dilated cardiomyopathy with pulmonary hypertension 5. Paroxysmal atrial fibrillation now in sinus rhythm, [id number] score of 4, with subtherapeutic INR 6. Syncope referable to sustained VT/VF 7. Post Medtronic ICD implant 8. Orthostatic hypotension 9. Diabetes mellitus 10. Hypothyroidism 11. ESRD on HD 12. Anemia of renal disease and Thrombocytopenia 13. CVA 14. COPD PLAN: 1. Initiate Carvedilol and ACEI or ARBS therapies if BP permits. Currently patient remains somewhat hypotensive 2. Continue Amiodarone 200 mg qd 3. Dose Coumadin per INR 4. Continue Midodrine 5 mg bid 5. HD as per renal service 6. Follw up with Dr. Zachery Mccormick at [facility] as outpatient Transfer to floor care Carrington Woodruff MD
[2017-01-23 22:04] LABS: INR 1.56 (0.82-1.09); PROTHROMBIN TIME (PATIENT) 17.3 SEC (9.98-11.88)
[2017-01-23] MEDS: LACTULOSE 20 GM/30 ML UDC (FOR ORAL USE ONLY) PO SCH (23:23)
[2017-01-24 00:09] LABS: HEP B SURFACE AB Non Reactive (.)
[2017-01-24] MEDS: INSULIN DETEMIR 100 UNITS/ML MDV SQ SCH (06:27)
[2017-01-24] MEDS: INSULIN SLIDING SCALE (NOVOLOG) 1 VIAL SQ SCH ×2 (06:28→16:53)
[2017-01-24] MEDS: oxyCODONE HCL 5 MG TABLET PO PRN ×3 (08:09→23:04)
[2017-01-24 08:50] LABS: BASOPHIL 1.2 % (0-2.0); EOSINOPHIL 5.6 % (0-4.5); MCH 28.5 pg (25.7-33.7); MCHC 31.8 g/dl (32.0-35.9); MEAN CELL VOLUME 89.6 fl (80-96); MEAN PLT VOLUME 8.3 fl (7.5-11.1); PLATELET COUNT 67 K/MM3 (134-434); RDW 16.9 % (11.9-15.9)
[2017-01-24 09:06] LABS: INR 1.53 (0.82-1.09)
[2017-01-24 09:15] LABS: ALBUMIN 3.4 g/dl (3.4-5.0); ANION GAP 10 (8-16); BILIRUBIN,TOTAL 0.5 mg/dL (0.2-1.0); CALCIUM 9.1 mg/dL (8.5-10.1); CO2 30 mmol/L (21-32); CREATININE 6.2 mg/dL (0.7-1.3); GLUCOSE,RANDOM 234 mg/dL (74-106); SGOT/AST 19 U/L (15-37); SGPT/ALT 26 U/L (12-78); TOT PROT 7.3 g/dl (6.4-8.2)
[2017-01-24 09:16] LABS: ALK PHOS 101 U/L (45-117)
--- NOTE | 2017-01-24 10:03 | PN ---
Progress Note (short form) - Note Progress Note: RENAL ALL NOTES REVIEWED dialyzed yesterday feels well no sob labs reviewed only 1 bottle positive got vanco 1 gm at hd yesterday subsequent cultuers neg can go home will give ceftriaxone at hd for another 2 weeks no peripheral draws please Will start kayexalate 15 gm MWF case d/w PMD
[2017-01-24] MEDS: SUCRALFATE 1 GM TABLET (FP) PO SCH ×2 (10:04→23:03)
[2017-01-24] MEDS: MIDODRINE HCL 5 MG TABLET PO SCH (10:05)
[2017-01-24] MEDS: AMIODARONE HCL 200 MG TABLET (FP) PO SCH (10:05)
[2017-01-24] MEDS: LACTULOSE 20 GM/30 ML UDC (FOR ORAL USE ONLY) PO SCH (10:06)
[2017-01-24] MEDS: POLYETHYLENE GLYCOL 3350 119 GM BTL PO SCH ×2 (10:09→23:09)
[2017-01-24] MEDS: GENTAMICIN SO4 0.1% TOPICAL OINTMENT 15 GM/TUBE TUBE TP SCH ×2 (11:33→23:22)
--- NOTE | 2017-01-24 13:59 | PN ---
Progress Note (short form) - Note Progress Note: No new complaints. blood culture sensitivity still pending awaiting echo CBC, BMP 01/24/17 08:35 01/24/17 08:35 Vital Signs Period Temp Pulse Resp BP Sys/Lopez Pulse Ox Last 24 Hr 97.8 F-98.7 F 61-68 16-20 84-133/38-57 97 S1S2 RRR lungs cta abd distended no edema right heel stage 2 ulcer nonfocal exam Imp staph bacteremia Hyperkalemia ESRD IDDM parox Afib dilated cardiomyopathy CAD hypotension Plan HD today will have to be treated for staph + blood culture for 4-6 weeks abx as per ID-will likely be dcd on cefazolin 2gm, 2gm, 3gm after TU, [place], Sat HD give 5 mg warfarin today Problem List - Problems (1) Coronary artery disease Code(s): I25.10 - ATHSCL HEART DISEASE OF [place] CORONARY ARTERY W/O ANG PCTRS Qualifiers: Qualified Code(s): I25.10 - Atherosclerotic heart disease of [place] coronary artery without angina pectoris (2) Diabetes mellitus Code(s): E11.9 - TYPE 2 DIABETES MELLITUS WITHOUT COMPLICATIONS Qualifiers: Qualified Code(s): E10.22 - Type 1 diabetes mellitus with diabetic chronic kidney disease; N18.1 - Chronic kidney disease, stage 1 (3) HTN (hypertension) Code(s): I10 - ESSENTIAL (PRIMARY) HYPERTENSION Qualifiers: Qualified Code(s): I10 - Essential (primary) hypertension (4) Hyperkalemia Code(s): E87.5 - HYPERKALEMIA (5) Hypothyroidism Code(s): E03.9 - HYPOTHYROIDISM, UNSPECIFIED Qualifiers: Qualified Code(s): E03.9 - Hypothyroidism, unspecified (6) Ischemic dilated cardiomyopathy Code(s): I25.5 - ISCHEMIC CARDIOMYOPATHY (7) Atrial fibrillation Code(s): I48.91 - UNSPECIFIED ATRIAL FIBRILLATION Qualifiers: Qualified Code(s): I48.1 - Persistent atrial fibrillation (8) Cirrhosis Code(s): K74.60 - UNSPECIFIED CIRRHOSIS OF LIVER Qualifiers: Qualified Code(s): K74.60 - Unspecified cirrhosis of liver (9) ESRD (end stage renal disease) Code(s): N18.6 - END STAGE RENAL DISEASE (10) S/P CABG (coronary artery bypass graft) Code(s): Z95.1 - PRESENCE OF AORTOCORONARY BYPASS GRAFT
--- NOTE | 2017-01-24 14:27 | PN ---
Physical Exam: SUBJECTIVE: Patient seen and examined by me this PM - Feels well. No overnight events. No complaints - Will likely d/c tomorrow. Will likely go home on Ancef for staph bacteremia. - No fever or WBC count. Awaiting Echo - Received vanc dose yesterday Other updates: - ESR 35 - Repeat Blood cx's no growth so far OBJECTIVE: Vital Signs Period Temp Pulse Resp BP Sys/Lopez Pulse Ox Last 24 Hr 97.8 F-98.7 F 62-68 16-20 84-133/38-57 96-97 GENERAL: Awake, alert, and fully oriented, in no acute distress. HEAD: Normal with no signs of trauma. Alopecia. EYES: Pupils equal, round and reactive to light, sclera anicteric, conjunctiva clear. No lid lag. R eye lateral deviation. EARS, NOSE, THROAT: Ears normal, nares patent, oropharynx clear without exudates. Poor dentition. Moist mucous membranes. LUNGS: Breath sounds equal, clear to auscultation bilaterally. No wheezes and no crackles. No accessory muscle use. HEART: Distant heart sounds. Regular rate and rhythm, normal S1 and S2 without murmur, rub or gallop. ABDOMEN: Soft, nontender, mildly distended, normoactive bowel sounds, no guarding, no rebound, no masses. No hepatomegaly or splenomegaly. UPPER EXTREMITIES: 2+ pulses, warm, well-perfused. No cyanosis. No clubbing. Cap refill <2 seconds. 1+ swelling in L arm, likely secondary to multiple blood draws. Pain on web services manager in L hand due to swelling. LOWER EXTREMITIES: 2+ pulses, warm, well-perfused. No calf tenderness. No peripheral edema. Grade 2 decubitus ulcer on R ankle, covered w/ new dressing. No erythema or edema. NEUROLOGICAL: Normal speech. Gait not evaluated due to pt refusal. SKIN: Warm, dry, normal turgor Laboratory Results - last 24 hr CBC, BMP 01/24/17 08:35 01/24/17 08:35 01/21/17 01/21/17 01/23/17 11:00 16:55 11:30 WBC RBC Hgb Hct MCV MCH MCHC RDW Plt Count MPV Neutrophils % Lymphocytes % Monocytes % Eosinophils % Basophils % ESR INR PTT (Actin FS) Sodium Potassium Chloride Carbon Dioxide Anion Gap BUN Creatinine Creat Clearance w eGFR POC Glucometer [phone] Random Glucose Calcium Total Bilirubin AST ALT Alkaline Phosphatase C-Reactive Protein 1.1 H D Total Protein Albumin Hep A IgM Ab Confirm Negative Hepatitis A Ab Total Positive H Hep Bs Antigen Negative Hep Bs Antibody Non reactive Hep B Core Total Ab Negative 01/23/17 01/23/17 01/23/17 11:45 16:42 21:20 WBC RBC Hgb Hct MCV MCH MCHC RDW Plt Count MPV Neutrophils % Lymphocytes % Monocytes % Eosinophils % Basophils % ESR INR 1.56 H PTT (Actin FS) 34.2 Sodium Potassium Chloride Carbon Dioxide Anion Gap BUN Creatinine Creat Clearance w eGFR POC Glucometer [phone] Random Glucose Calcium Total Bilirubin AST ALT Alkaline Phosphatase C-Reactive Protein Total Protein Albumin Hep A IgM Ab Confirm Hepatitis A Ab Total Hep Bs Antigen Hep Bs Antibody Hep B Core Total Ab 01/24/17 01/24/17 01/24/17 05:38 08:35 08:35 WBC 5.0 RBC 4.02 Hgb 11.5 L Hct 36.1 MCV 89.6 MCH 28.5 MCHC 31.8 L RDW 16.9 H Plt Count 67 L MPV 8.3 Neutrophils % 73.0 Lymphocytes % 9.6 Monocytes % 10.6 H Eosinophils % 5.6 H Basophils % 1.2 ESR INR 1.53 H PTT (Actin FS) Sodium Potassium Chloride Carbon Dioxide Anion Gap BUN Creatinine Creat Clearance w eGFR POC Glucometer 266 Random Glucose Calcium Total Bilirubin AST ALT Alkaline Phosphatase C-Reactive Protein Total Protein Albumin Hep A IgM Ab Confirm Hepatitis A Ab Total Hep Bs Antigen Hep Bs Antibody Hep B Core Total Ab 01/24/17 01/24/17 08:35 08:35 WBC RBC Hgb Hct MCV MCH MCHC RDW Plt Count MPV Neutrophils % Lymphocytes % Monocytes % Eosinophils % Basophils % ESR 35 H INR PTT (Actin FS) Sodium 134 L Potassium 4.3 Chloride 94 L Carbon Dioxide 30 Anion Gap 10 BUN 44 H Creatinine 6.2 H Creat Clearance w eGFR 9.22 POC Glucometer Random Glucose 234 H D Calcium 9.1 Total Bilirubin 0.5 D AST 19 ALT 26 Alkaline Phosphatase 101 C-Reactive Protein Total Protein 7.3 Albumin 3.4 Hep A IgM Ab Confirm Hepatitis A Ab Total Hep Bs Antigen Hep Bs Antibody Hep B Core Total Ab Microbiology 01/21/17 01:30 Blood Culture - Preliminary Blood - Peripheral Venous NO GROWTH OBTAINED AFTER 72 HOURS, INCUBATION TO CONTINUE FOR 2 DAYS. 01/22/17 16:00 Blood Culture - Preliminary Blood - Peripheral Venous NO GROWTH OBTAINED AFTER 24 HOURS, INCUBATION TO CONTINUE FOR 4 DAYS. 01/22/17 16:00 Blood Culture - Preliminary Blood - Peripheral Venous NO GROWTH OBTAINED AFTER 24 HOURS, INCUBATION TO CONTINUE FOR 4 DAYS. 01/21/17 01:30 Blood Culture - Preliminary Blood - Peripheral Venous Presumptive Mssa (Pbp2a Neg) Active Medications Generic Name Dose Route Start Last Admin Trade Name Freq PRN Reason Stop Dose Admin Acetaminophen 650 mg 01/22/17 15:51 01/23/17 21:27 Tylenol - PO 650 mg Q6H PRN Administration PAIN Amiodarone HCl 200 mg 01/23/17 10:00 01/24/17 10:05 Cordarone - PO 200 mg DAILY RACHEL Administration Diphenhydramine HCl 25 mg 01/23/17 11:46 Benadryl Injection - IVPUSH DAILY PRN FOR ITCHING Epoetin Chevy 5,000 units 01/22/17 18:31 Epogen - SQ 01/22/17 18:32 ONCE ONE Gentamicin Sulfate 1 applic 01/22/17 22:00 01/24/17 11:33 Garamycin 0.1% Ointment - TP 1 applic BID RACHEL Administration Insulin Aspart 1 vial 01/23/17 17:15 01/24/17 06:28 Novolog Vial Sliding Scale - SQ 6 units BIDAC RACHEL Administration Protocol Insulin Detemir 15 units 01/23/17 07:00 01/24/17 06:27 Levemir Vial SQ 15 units DAILY@0700 RACHEL Administration Lactulose 20 gm 01/23/17 23:15 01/24/17 10:06 Cephulac (Oral Use) PO 20 gm DAILY RACHEL Administration Levothyroxine Sodium 75 mcg 01/23/17 07:00 01/23/17 06:34 Synthroid - PO 75 mcg DAILY@0700 RACHEL Administration Midodrine 10 mg 01/23/17 10:00 01/24/17 10:05 Proamatine - PO 10 mg DAILY RACHEL Administration Oxycodone HCl 10 mg 01/22/17 15:51 01/24/17 08:09 Roxicodone - PO 10 mg Q6H PRN Administration PAIN Polyethylene Glycol 17 gm 01/22/17 22:00 01/24/17 10:09 Miralax (For Daily Use) - PO Not Given BID RACHEL Sucralfate 1 gm 01/22/17 22:00 01/24/17 10:04 Carafate - PO 1 gm BID RACHEL Administration Warfarin Sodium 4 mg 01/22/17 18:00 01/23/17 17:11 Coumadin - PO 4 mg DAILY@1800 RACHEL Administration Warfarin Sodium 1 mg 01/24/17 18:00 Coumadin - PO 01/24/17 18:01 ONCE@1800 ONE ASSESSMENT/PLAN: 61 yo man w/ pmh of Afib w/RVR, ESRD, CAD, CHF, anemia, hypothyroidism who presented with sudden onset weakness, BL UE paralysis, dysarthria and suspected LOC during evening dialysis session, now w/ + blood cx's for MSSA. Pt non- infectious, w/ no elevation in WBC's, left shift or fever, doing well. Multiple possible sources for bacteremia (A/V fistula, PPM and decubitus ulcer). Echo to r/o endocarditis. Continue w/ plan to follow-up blood cultures and d/c on Ancef for likely cutaneous infection source. Problem list: ESRD Afib w/RVR Bacteremia Hypothyroidism Anemia Chronic Thrombocytopenia Plan #Gram positive bacteremia - f/u blood cx's - cefazolin on d/c // w/ dialysis - ESR 35 - Trend fever curve, WBC - Monitor for infectious symptoms - f/u ECHO #Decubitus ulcer - Interval monitoring for signs of local infection - Dressing changes - Counseling provided on proper foot hygiene Kai Allen MD, PGY1 Plan discussed with attending, Dr. Mena Visit type - Emergency Visit Emergency Visit: No - New Patient This patient is new to me today: No - Critical Care Critical Care patient: No
--- NOTE | 2017-01-24 15:05 | CONSULT ---
Consult Consult Specialty:: Plastic Surgery/Wound Referred by:: Cecilia Varma Reason for Consultation:: Open wound Right heel 3weeks, diabetic male with kidney compromise - History of Present Illness Chief Complaint: Bacteremia MSSA? History of Present Illness: 61yo Male patient w/ PmHx: ESRD on Hemodialysis (e, , Sun), COPD, CAD s/ p CABG, CVA, CHF, IDDM, HTN, HLD presents to ED with Sob/Diff breathing today. Patient states he was receiving dialysis when it was stopped and patient sent to ED for evaluation. Patient seen 12/19/2016 for same symptoms and found to be hyperkalemic. Associated CP. Denies any other complaints at this time. 61 year old male developed a wound Right heel 3 weeks ago. As per patient he took a shower and decided to scrape his heel using a hard scrapping callus remover. He developed open wound with drainage. Later he felt weak during dialysis , send to ER and admitted Patient on dialysis, had CAD, byPass Non Smoker, never smoked Local Focused Exam ; Lower Extremity : Skin normal temperature, dry nails, callus over the Right heel , no drainage, no tenderness Dorsalis Pedis minimal 1+ palpable Right , Right Posterior tibial not palpable Left Dorsalis bounding pulse Sensation : States he feels Light touch Plan : 1,. Doppler study Right lower leg Dorsalis Pedis positive . 2. Counselling Patient regarding foot care, avoiding any scrapping,tight shoes, check feet daily 3 Recommend regular Podiatry check up. 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: Peripheral Neuropathy Cardio/Vascular: Yes: AFIB, CAD, CHF, HTN, Hyperlipdemia Pulmonary: Yes: Other (h/o MARIAN in lungs-not treated) Gastrointestinal: Yes: Other (cirrhosis-based on GONG likely) Renal/: Yes: Renal Failure, Hemodialysis Psych: Yes: Anxiety Endocrine: Yes: Diabetes Mellitus (IDDM), Hypothyroidism - Past Surgical History Past Surgical History: Yes: AV Fistula/Graft, CABG (3 vessel in 2009), Cholecystectomy (2006), Permanent Pacemaker - Alcohol/Substance Use Hx Alcohol Use: No History of Substance Use: reports: None - Smoking History Smoking history: Never smoked Have you smoked in the past 12 months: No Aproximately how many cigarettes per day: 0 - Social History Usual Living Arrangement: With Spouse ADL: Independent History of Recent Travel: No Home Medications - Allergies Allergies/Adverse Reactions: Allergies Allergy/AdvReac Type Severity Reaction Status Date / Time No Known Drug Allergies Allergy Verified 01/21/17 00:43 - Home Medications Home Medications: Ambulatory Orders Insulin Regular [Novolin R Vial -] 0 units SQ TID 12/19/16 Sucralfate [Carafate -] 1 gm PO BID 12/19/16 Levothyroxine [Synthroid -] 75 mcg PO DAILY@0700 tablet 12/24/16 Midodrine HCl [Proamatine -] 10 mg PO DAILY tablet 12/24/16 Oxycodone HCl [Roxicodone -] 10 mg PO Q4H PRN #30 tablet MDD 6 12/24/16 Polyethylene Glycol 3350 [Miralax 119 gm Btl -] 17 gm PO BID bottle 12/24/16 Amiodarone HCl [Cordarone -] 200 mg PO DAILY #30 tablet 12/25/16 Warfarin Na [Coumadin -] 5 mg PO DAILY@1800 #0 tablet 12/25/16 Physical Exam Vital Signs: Vital Signs Temperature 98.4 F 01/24/17 10:00 Pulse Rate 68 01/24/17 10:00 Respiratory Rate 20 01/24/17 10:00 Blood Pressure 98/38 01/24/17 10:00 O2 Sat by Pulse Oximetry (%) 96 01/24/17 09:00 Labs: CBC, BMP 01/24/17 08:35 01/24/17 08:35
--- NOTE | 2017-01-24 16:50 | PN ---
Progress Note, Physician History of Present Illness: Back in sinus rhythm, hyperkalemia has resolved, no further recurrent near or true syncope. - Current Medication List Current Medications: Active Medications Acetaminophen (Tylenol -) 650 mg PO Q6H PRN PRN Reason: PAIN Last Admin: 01/23/17 21:27 Dose: 650 mg Amiodarone HCl (Cordarone -) 200 mg PO DAILY [facility] Last Admin: 01/24/17 10:05 Dose: 200 mg Diphenhydramine HCl (Benadryl Injection -) 25 mg IVPUSH DAILY PRN PRN Reason: FOR ITCHING Epoetin Chevy (Epogen -) 5,000 units SQ ONCE ONE Stop: 01/22/17 18:32 Gentamicin Sulfate (Garamycin 0.1% Ointment -) 1 applic TP BID [facility] Last Admin: 01/24/17 11:33 Dose: 1 applic Insulin Aspart (Novolog Vial Sliding Scale -) 1 vial SQ BIDAC [facility] PRN Reason: Protocol Last Admin: 01/24/17 06:28 Dose: 6 units Insulin Detemir (Levemir Vial) 15 units SQ DAILY@0700 [facility] Last Admin: 01/24/17 06:27 Dose: 15 units Lactulose (Cephulac (Oral Use)) 20 gm PO DAILY [facility] Last Admin: 01/24/17 10:06 Dose: 20 gm Levothyroxine Sodium (Synthroid -) 75 mcg PO DAILY@0700 [facility] Last Admin: 01/23/17 06:34 Dose: 75 mcg Midodrine (Proamatine -) 10 mg PO DAILY [facility] Last Admin: 01/24/17 10:05 Dose: 10 mg Oxycodone HCl (Roxicodone -) 10 mg PO Q6H PRN PRN Reason: PAIN Last Admin: 01/24/17 08:09 Dose: 10 mg Polyethylene Glycol (Miralax (For Daily Use) -) 17 gm PO BID [facility] Last Admin: 01/24/17 10:09 Dose: Not Given Sucralfate (Carafate -) 1 gm PO BID [facility] Last Admin: 01/24/17 10:04 Dose: 1 gm Warfarin Sodium (Coumadin -) 4 mg PO DAILY@1800 [facility] Last Admin: 01/23/17 17:11 Dose: 4 mg Warfarin Sodium (Coumadin -) 1 mg PO ONCE@1800 ONE Stop: 01/24/17 18:01 - Objective Vital Signs: Vital Signs Temperature 98.0 F 01/24/17 14:50 Pulse Rate 72 01/24/17 14:50 Respiratory Rate 22 01/24/17 14:50 Blood Pressure 112/64 01/24/17 14:50 O2 Sat by Pulse Oximetry (%) 96 01/24/17 09:00 Constitutional: Yes: No Distress, Calm Neck: Yes: Supple Cardiovascular: Yes: Regular Rate and Rhythm, Murmur Respiratory: Yes: Regular, Diminished Gastrointestinal: Yes: Normal Bowel Sounds, Soft, Abdomen, Obese Edema: No Labs: CBC, BMP 01/24/17 08:35 01/24/17 08:35 INR, PTT INR 1.53 (0.82-1.09) H 01/24/17 08:35 Assessment/Plan Echocardiography dated 04/28/16 revealed LV systolic function moderate/severely reduced, akinesis of basal and mid kandy-septum, apical anterior and apical inferior mustafa; left atrium moderately dilated; mild to moderate mitral annular calcification, mild mitral regurgitaion, moderate tricuspid regurgitation, RV systolic pressure elevated; mild aortic sclerosis. 1. Generalized weakness with possible syncopal episode during HD session 2. Hyperkalemia related to incomplete HD session resolved 3. CAD post AL/PCI(stent)/CABG, angina pectoris with history of demand ischemic injury 4. Ischemic dilated cardiomyopathy with pulm HTN 5. Paroxysmal atrial fibrillation->sinus rhythm, [id number] score of 4, with subtherapeutic INR 6. Syncope referable to sustained VT/VF 7. Post Medtronic's ICD implant 8. Orthostatic hypotension on Midodrine therapy 9. DM 10. Hypothyroidism 11. ESRD on HD 12. Anemia of renal disease, Thrombocytopenia 13. h/o CVA 14. COPD 15. Transient MSSA bacteremia PLAN: 1. Initiate Carvedilol and ACEI or ARBS therapies if BP permits. Currently patient remains somewhat hypotensive 2. Continue Amiodarone 200 mg qd 3. Dose Coumadin per INR 4. Continue Midodrine 5 mg bid 5. HD as per renal service, complete 4 weeks of Ancef during HD per ID recs 6. Follw up with Dr. Zachery Mccormick at [facility] as outpatient
[2017-01-24] MEDS ORDERED: INSULIN (NOVOLOG) ASPART 100 UNITS/ML 10ML VIAL ONE (16:51)
[2017-01-24] MEDS: WARFARIN NA 2 MG TABLET (UD) PO SCH (17:03)
[2017-01-24] MEDS ORDERED: WARFARIN NA 1 MG TABLET (FP) PO ONE (18:00)
--- NOTE | 2017-01-24 18:35 | PN ---
Teaching Attending Note Name of Resident: Kai Allen ATTENDING PHYSICIAN STATEMENT I saw and evaluated the patient. I reviewed the resident's note and discussed the case with the resident. I agree with the resident's findings and plan as documented. SUBJECTIVE: no complaints OBJECTIVE: Vital Signs Period Temp Pulse Resp BP Sys/Lopez Pulse Ox Last 24 Hr 97.8 F-98.7 F 62-72 16-22 84-133/38-64 96-97 cor-rrr lungs clear abd soft,nt ext no edema, dry heel ulcer Laboratory Tests CBC, BMP 01/24/17 08:35 01/24/17 08:35 01/23/17 01/24/17 11:30 08:35 ESR 35 H C-Reactive Protein 1.1 H D Microbiology 01/22/17 16:00 Blood - Peripheral Venous Blood Culture - Preliminary NO GROWTH OBTAINED AFTER 48 HOURS, INCUBATION TO CONTINUE FOR 3 DAYS. 01/22/17 16:00 Blood - Peripheral Venous Blood Culture - Preliminary NO GROWTH OBTAINED AFTER 48 HOURS, INCUBATION TO CONTINUE FOR 3 DAYS. 01/21/17 01:30 Blood - Peripheral Venous Blood Culture - Preliminary NO GROWTH OBTAINED AFTER 72 HOURS, INCUBATION TO CONTINUE FOR 2 DAYS. 01/21/17 01:30 Blood - Peripheral Venous Blood Culture - Preliminary Presumptive Mssa (Pbp2a Neg) ASSESSMENT AND PLAN: MSSA bacteremia- transient, repeat blood cultures before antibiotics are negative plan cefazolin with HD 2/2/3 d/w Dr Hdez for 4 weeks esrd/hd superficial heel ulcer- evaluated by wound care
[2017-01-24] MEDS: ACETAMINOPHEN 325 MG TABLET (FP) PO PRN (23:06)
[2017-01-25] MEDS: LEVOTHYROXINE NA 75 MCG TABLET (FP) PO SCH (06:17)
[2017-01-25] MEDS: INSULIN DETEMIR 100 UNITS/ML MDV SQ SCH (06:17)
[2017-01-25] MEDS: INSULIN SLIDING SCALE (NOVOLOG) 1 VIAL SQ SCH (06:19)
--- NOTE | 2017-01-25 07:23 | PN ---
Physical Exam: SUBJECTIVE: Patient seen by me this AM - No major events. No complaints. Patient doing well. For d/c today. - Denies any fever, cough, N/V, BARRETT, new rashes, diarrhea, constipation. - Blood cx's 07/16 for micrococcus. Likely not bacteremic. Will not require abx as outpt - Afebrile, no WBC OBJECTIVE: Vital Signs Period Temp Pulse Resp BP Sys/Lopez Pulse Ox Last 24 Hr 97.6 F-98.4 F 60-72 18-22 98-112/38-64 96-96 GENERAL: Awake, alert, and fully oriented, in no acute distress. HEAD: Normal with no signs of trauma. Alopecia. EYES: Pupils equal, round and reactive to light, sclera anicteric, conjunctiva clear. No lid lag. R eye lateral deviation. EARS, NOSE, THROAT: Ears normal, nares patent, oropharynx clear without exudates. Poor dentition. Moist mucous membranes. LUNGS: Breath sounds equal, clear to auscultation bilaterally. No wheezes and no crackles. No accessory muscle use. HEART: Distant heart sounds. Regular rate and rhythm, normal S1 and S2 without murmur, rub or gallop. ABDOMEN: Soft, nontender, mildly distended, normoactive bowel sounds, no guarding, no rebound, no masses. No hepatomegaly or splenomegaly. UPPER EXTREMITIES: 2+ pulses, warm, well-perfused. No cyanosis. No clubbing. Cap refill <2 seconds. 1+ swelling in L arm, likely secondary to multiple blood draws. Pain on cad operator in L hand due to swelling. LOWER EXTREMITIES: 2+ pulses, warm, well-perfused. No calf tenderness. No peripheral edema. Grade 2 decubitus ulcer on R ankle, covered w/ new dressing. No erythema or edema. NEUROLOGICAL: Normal speech. Gait not evaluated due to pt refusal. SKIN: Warm, dry, normal turgor Laboratory Results - last 24 hr CBC, BMP 01/24/17 08:35 01/24/17 08:35 01/24/17 01/24/17 01/24/17 08:35 08:35 08:35 WBC 5.0 RBC 4.02 Hgb 11.5 L Hct 36.1 MCV 89.6 MCH 28.5 MCHC 31.8 L RDW 16.9 H Plt Count 67 L MPV 8.3 Neutrophils % 73.0 Lymphocytes % 9.6 Monocytes % 10.6 H Eosinophils % 5.6 H Basophils % 1.2 ESR INR 1.53 H Sodium 134 L Potassium 4.3 Chloride 94 L Carbon Dioxide 30 Anion Gap 10 BUN 44 H Creatinine 6.2 H Creat Clearance w eGFR 9.22 POC Glucometer Random Glucose 234 H D Calcium 9.1 Total Bilirubin 0.5 D AST 19 ALT 26 Alkaline Phosphatase 101 Total Protein 7.3 Albumin 3.4 01/24/17 01/24/17 01/25/17 08:35 16:05 06:15 WBC RBC Hgb Hct MCV MCH MCHC RDW Plt Count MPV Neutrophils % Lymphocytes % Monocytes % Eosinophils % Basophils % ESR 35 H INR Sodium Potassium Chloride Carbon Dioxide Anion Gap BUN Creatinine Creat Clearance w eGFR POC Glucometer 237 226 Random Glucose Calcium Total Bilirubin AST ALT Alkaline Phosphatase Total Protein Albumin Microbiology 01/21/17 01:30 Blood Culture - Preliminary Blood - Peripheral Venous NO GROWTH OBTAINED AFTER 96 HOURS, INCUBATION TO CONTINUE FOR 1 DAYS. 01/22/17 16:00 Blood Culture - Preliminary Blood - Peripheral Venous NO GROWTH OBTAINED AFTER 48 HOURS, INCUBATION TO CONTINUE FOR 3 DAYS. 01/22/17 16:00 Blood Culture - Preliminary Blood - Peripheral Venous NO GROWTH OBTAINED AFTER 48 HOURS, INCUBATION TO CONTINUE FOR 3 DAYS. Active Medications Generic Name Dose Route Start Last Admin Trade Name Freq PRN Reason Stop Dose Admin Acetaminophen 650 mg 01/22/17 15:51 01/24/17 23:06 Tylenol - PO 650 mg Q6H PRN Administration PAIN Amiodarone HCl 200 mg 01/23/17 10:00 01/24/17 10:05 Cordarone - PO 200 mg DAILY RACHEL Administration Diphenhydramine HCl 25 mg 01/23/17 11:46 Benadryl Injection - IVPUSH DAILY PRN FOR ITCHING Epoetin Chevy 5,000 units 01/22/17 18:31 Epogen - SQ 01/22/17 18:32 ONCE ONE Gentamicin Sulfate 1 applic 01/22/17 22:00 01/24/17 23:22 Garamycin 0.1% Ointment - TP 1 applic BID RACHEL Administration Insulin Aspart 1 vial 01/23/17 17:15 01/25/17 06:19 Novolog Vial Sliding Scale - SQ 4 units BIDAC RACHEL Administration Protocol Insulin Detemir 15 units 01/23/17 07:00 01/25/17 06:17 Levemir Vial SQ 15 units DAILY@0700 RACHEL Administration Lactulose 20 gm 01/23/17 23:15 01/24/17 10:06 Cephulac (Oral Use) PO 20 gm DAILY RACHEL Administration Levothyroxine Sodium 75 mcg 01/23/17 07:00 01/25/17 06:17 Synthroid - PO 75 mcg DAILY@0700 RACHEL Administration Midodrine 10 mg 01/23/17 10:00 01/24/17 10:05 Proamatine - PO 10 mg DAILY RACHEL Administration Oxycodone HCl 10 mg 01/22/17 15:51 01/24/17 23:04 Roxicodone - PO 10 mg Q6H PRN Administration PAIN Polyethylene Glycol 17 gm 01/22/17 22:00 01/24/17 23:09 Miralax (For Daily Use) - PO Not Given BID RACHEL Sucralfate 1 gm 01/22/17 22:00 01/24/17 23:03 Carafate - PO 1 gm BID RACHEL Administration Warfarin Sodium 4 mg 01/22/17 18:00 01/24/17 17:03 Coumadin - PO 4 mg DAILY@1800 RACHEL Administration ASSESSMENT/PLAN: 61 yo man w/ pmh of Afib w/RVR, ESRD, CAD, CHF, anemia, hypothyroidism who presented with sudden onset weakness, BL UE paralysis, dysarthria and suspected LOC during evening dialysis session, now w/ + blood cx's for MSSA. Pt non- infectious, w/ no elevation in WBC's, left shift or fever, doing well. Pt for d/ c today. Blood cx's 07/16 for micrococcus, likely erroneous. Will not require outpt abx. Problem list: ESRD Afib w/RVR Bacteremia Hypothyroidism Anemia Chronic Thrombocytopenia Plan #Gram positive bacteremia - D/c today - Blood cultures 07/16 grew for micrococcus. Likely erroneous due to improper collection technique - Initial plan for cefazolin on d/c 08/10/ w/ dialysis. Likely will not need Abx. #Decubitus ulcer - Interval monitoring for signs of local infection - Dressing changes - Counseling provided on proper foot hygiene Kai Allen MD, PGY1 Plan discussed with attending, Dr. Mena Visit type - Emergency Visit Emergency Visit: No - New Patient This patient is new to me today: No - Critical Care Critical Care patient: No
[2017-01-25] MEDS: MIDODRINE HCL 5 MG TABLET PO SCH (09:19)
--- NOTE | 2017-01-25 09:32 | PN ---
Progress Note, Physician Chief Complaint: Events noted seen during dialysis Not in distress History of Present Illness: Patient was seen and examined. Awake and alert. Chart was reviewed Denies chest pain, SOB or palpitations - Current Medication List Current Medications: Active Medications Acetaminophen (Tylenol -) 650 mg PO Q6H PRN PRN Reason: PAIN Last Admin: 01/24/17 23:06 Dose: 650 mg Amiodarone HCl (Cordarone -) 200 mg PO DAILY [facility] Last Admin: 01/24/17 10:05 Dose: 200 mg Diphenhydramine HCl (Benadryl Injection -) 25 mg IVPUSH DAILY PRN PRN Reason: FOR ITCHING Epoetin Chevy (Epogen -) 5,000 units SQ ONCE ONE Stop: 01/22/17 18:32 Gentamicin Sulfate (Garamycin 0.1% Ointment -) 1 applic TP BID [facility] Last Admin: 01/24/17 23:22 Dose: 1 applic Insulin Aspart (Novolog Vial Sliding Scale -) 1 vial SQ BIDAC [facility] PRN Reason: Protocol Last Admin: 01/25/17 06:19 Dose: 4 units Insulin Detemir (Levemir Vial) 15 units SQ DAILY@0700 [facility] Last Admin: 01/25/17 06:17 Dose: 15 units Lactulose (Cephulac (Oral Use)) 20 gm PO DAILY [facility] Last Admin: 01/24/17 10:06 Dose: 20 gm Levothyroxine Sodium (Synthroid -) 75 mcg PO DAILY@0700 [facility] Last Admin: 01/25/17 06:17 Dose: 75 mcg Midodrine (Proamatine -) 10 mg PO DAILY [facility] Last Admin: 01/25/17 09:19 Dose: 10 mg Oxycodone HCl (Roxicodone -) 10 mg PO Q6H PRN PRN Reason: PAIN Last Admin: 01/24/17 23:04 Dose: 10 mg Polyethylene Glycol (Miralax (For Daily Use) -) 17 gm PO BID [facility] Last Admin: 01/24/17 23:09 Dose: Not Given Sucralfate (Carafate -) 1 gm PO BID [facility] Last Admin: 01/24/17 23:03 Dose: 1 gm Warfarin Sodium (Coumadin -) 4 mg PO DAILY@1800 [facility] Last Admin: 01/24/17 17:03 Dose: 4 mg - Objective Vital Signs: Vital Signs Temperature 98.9 F 01/25/17 07:38 Pulse Rate 58 L 01/25/17 07:38 Respiratory Rate 18 01/25/17 07:38 Blood Pressure 101/54 01/25/17 07:38 O2 Sat by Pulse Oximetry (%) 96 01/24/17 21:00 Neck: Yes: Supple Cardiovascular: Yes: Regular Rate and Rhythm, S1, S2 Respiratory: Yes: CTA Bilaterally Gastrointestinal: Yes: Normal Bowel Sounds, Distention. No: Tenderness Edema: No Labs: CBC, BMP 01/24/17 08:35 01/24/17 08:35 INR, PTT INR 1.53 (0.82-1.09) H 01/24/17 08:35 Assessment/Plan 1. Generalized weakness with possible syncopal episode during HD 2. Hyperkalemia 3. CAD post FL/PCI(stent)/CABG, angina pectoris with history of demand ischemic injury 4. Ischemic dilated cardiomyopathy with pulmonary hypertension 5. Paroxysmal atrial fibrillation now in sinus rhythm, [id number] score of 4, with subtherapeutic INR 6. Syncope referable to sustained VT/VF 7. Post Medtr[employer] ICD implant 8. Orthostatic hypotension 9. Diabetes mellitus 10. Hypothyroidism 11. ESRD on HD 12. Anemia of renal disease and Thrombocytopenia 13. CVA 14. COPD PLAN: 1. Currently off cardiac medications 2. Continue Amiodarone 200 mg qd 3. Dose Coumadin per INR 4. Continue Midodrine 5 mg bid 5. HD as per renal service 6. Follw up with Dr. Zachery Mccormick at [facility] as outpatient Carrington Woodruff MD
[2017-01-25] MEDS ORDERED: CEFTRIAXONE 2 GM in DEXTROSE 5%-WATER - 100 ML IVPB ONE (10:30)
[2017-01-25 10:53] VITALS: TEMP 98.1
--- NOTE | 2017-01-25 12:56 | DS ---
Physical Examination Vital Signs: Vital Signs Temperature 98.1 F 01/25/17 10:00 Pulse Rate 68 01/25/17 12:45 Respiratory Rate 18 01/25/17 12:45 Blood Pressure 102/70 01/25/17 12:45 O2 Sat by Pulse Oximetry (%) 96 01/24/17 21:00 Constitutional: Yes: Well Nourished Eyes: Yes: Conjunctiva Clear HENT: Yes: Normocephalic Neck: Yes: Trachea Midline Cardiovascular: Yes: Regular Rate and Rhythm Respiratory: Yes: CTA Bilaterally Gastrointestinal: Yes: Normal Bowel Sounds, Ascites Musculoskeletal: Yes: WNL Extremities: Yes: WNL Edema: Yes Neurological: Yes: WNL Labs: CBC, BMP 01/24/17 08:35 01/24/17 08:35 Discharge Summary Reason For Visit: DIABETES MELLITUS,CONGESTIVE HEART FAILURE,END Current Active Problems Atrial fibrillation with rapid ventricular response (Acute) Chronic hyperkalemia (Acute) Coronary artery disease (Acute) Demand ischemia (Acute) Diabetes mellitus (Acute) HTN (hypertension) (Acute) Hyperkalemia (Acute) Hypothyroidism (Acute) ICD (implantable cardioverter-defibrillator) discharge (Acute) Ischemic dilated cardiomyopathy (Acute) Precordial chest pain (Acute) S/P coronary artery stent placement (Acute) Systolic and diastolic CHF, acute on chronic (Acute) Ventricular tachycardia (Acute) Hospital Course: admitted to icu for severe symptomatic hyperkalemia once elctrolytes were corrected he had no further complaints blood culture from admission grew gram pos. cocci in 1 mottle final culture c/w micrococcus d/w ID, there is no further need for iv abx treatment for likely contaminant and other blood cultures repeatedly negative he is medically stable to go home and start oral keyexalate in between HD days Condition: Fair - Instructions Diet, Activity, Other Instructions: low potassium diet HD Sunday, , Sunday next week dr. Davis as scheduled next week Disposition: VNS/HOME HEALTH CARE - Home Medications Comprehensive Discharge Medication List: Ambulatory Orders Sucralfate [Carafate -] 1 gm PO BID 12/19/16 Levothyroxine [Synthroid -] 75 mcg PO DAILY@0700 tablet 12/24/16 Midodrine HCl [Proamatine -] 10 mg PO DAILY tablet 12/24/16 Polyethylene Glycol 3350 [Miralax 119 gm Btl -] 17 gm PO BID bottle 12/24/16 Amiodarone HCl [Cordarone -] 200 mg PO DAILY #30 tablet 12/25/16 Gentamicin 0.1% Ointment [Garamycin 0.1% Ointment -] 1 applic TP BID #15 grams 01/25/17 Oxycodone HCl/Acetaminophen [Percocet 10-325 mg Tablet] 1 each PO BID PRN #35 tablet MDD 2 tablets 01/25/17 Sodium Polystyrene Sulfonate [Kayexalate] 15 gm PO Q2D #1 bottle 01/25/17 Warfarin Sodium 4 mg PO DAILY #30 tablet 01/25/17
[2017-01-25] MEDS ORDERED: PT OWN MED DRAWER 7, Y5N ONE (13:28)
[2017-01-25] MEDS: LACTULOSE 20 GM/30 ML UDC (FOR ORAL USE ONLY) PO SCH (13:31)
[2017-01-25] MEDS: POLYETHYLENE GLYCOL 3350 119 GM BTL PO SCH (13:32)
[2017-01-25] MEDS: AMIODARONE HCL 200 MG TABLET (FP) PO SCH (13:32)
[2017-01-25] MEDS: SUCRALFATE 1 GM TABLET (FP) PO SCH (13:32)
[2017-01-25] MEDS: oxyCODONE HCL 5 MG TABLET PO PRN (13:33)
[2017-01-25 13:34] VITALS: BP 101/53; PULSE 64
[2017-01-25] MEDS: GENTAMICIN SO4 0.1% TOPICAL OINTMENT 15 GM/TUBE TUBE TP SCH (13:35)
--- NOTE | 2017-01-26 09:36 | PN ---
Progress Note (short form) - Note Progress Note: d/w Dr Hdez yesterday blood culture finalized as micrococcus not MSSA- on of 8 bottles off antibiotics he is asymptomatic it is skin danny no need for skilled nursing iv antibiotics
== END 2017-01-25 14:22 | disposition home health service (06) | DRG 640 ==
LOC: JER 00:30 → UNDOADMIN 03:29 → JERBED 03:29 → JICU 05:27 → J5S 01-23 18:41
PROVIDERS: ADMIT Internal Medicine; ATTEND Internal Medicine
PROC: 5A1D00Z (ICD-10-PCS; principal; 2017-01-22)
DX: E87.5 Hyperkalemia (principal); N18.6 End stage renal disease; I13.2 Hypertensive heart and chronic kidney disease with heart failure and with stage 5 chronic kidney disease, or end stage renal disease; I50.42 Chronic combined systolic (congestive) and diastolic (congestive) heart failure; J44.9 Chronic obstructive pulmonary disease, unspecified; I25.10 Atherosclerotic heart disease of native coronary artery without angina pectoris; Z95.1 Presence of aortocoronary bypass graft; Z86.73 Personal history of transient ischemic attack (TIA), and cerebral infarction without residual deficits; E78.5 Hyperlipidemia, unspecified; E11.22 Type 2 diabetes mellitus with diabetic chronic kidney disease; Z99.2 Dependence on renal dialysis; E11.42 Type 2 diabetes mellitus with diabetic polyneuropathy; Z79.4 Long term (current) use of insulin; I25.5 Ischemic cardiomyopathy; E03.9 Hypothyroidism, unspecified; K74.60 Unspecified cirrhosis of liver; I48.0 Paroxysmal atrial fibrillation; D69.6 Thrombocytopenia, unspecified; I27.2 Other secondary pulmonary hypertension; D63.1 Anemia in chronic kidney disease; R07.2 Precordial pain; L89.512 Pressure ulcer of right ankle, stage 2
CPT/HCPCS: 36415; 71010-TC; 73630-TC-RT; 80053; 82550; 83605; 83880; 84484; 85025; 85027; 85610; 85651; 85730; 86140; 86704; 86706; 86708; 86803; 87040; 87340; 93005; 93010; 93306-TC; 97116-GP; 97161-GP; 99285-25; G0480; J1644; P9047

== ENCOUNTER 2017-01-31 10:12 | Emergency (ER) | payer OTHER ==
--- NOTE | 2017-01-31 10:14 | PDOC ---
History of Present Illness - General Chief Complaint: Pain, Acute Stated Complaint: ABDOMINAL PAIN Time Seen by Provider: 01/31/17 10:14 - History of Present Illness Initial Comments: 01/31/17 14:51 Chief complaint: Abdominal pain History of present illness: Patient states that he developed abdominal pain during dialysis yesterday. The dialysis was discontinued as a result. The pain is epigastric and midabdominal. It has persisted. There is been no nausea or vomiting or diarrhea. Last normal bowel movement was 2 days ago. Review of systems: As noted above. In addition, no chest pain, shortness of breath, nausea, vomiting, diarrhea, hematemesis, melena, bloody stool, visual or focal neurologic symptoms, unsteadiness of gait, fever or chills, URI symptoms, sore throat, cough, skin infections or rash. The patient passes no urine Past medical history: Renal failure subsequent to acute cardiac event several years ago and cardiac bypass. [id number] diabetes. On dialysis 3 times weekly. Chronic narcotic usage for "postdialysis pain" Social/family history reviewed and noncontributory Physical exam: Alert and oriented well-developed well-nourished no acute distress cooperative Afebrile, vital signs normal PERRLA, ENT clear Neck supple without bruit mass or nodes Lungs clear CV regular without murmur rub or gallop Abdomen nondistended, normal bowel sounds. Soft without mass or organomegaly. Mild tenderness in the epigastrium without guarding or rebound. Rectal exam reveals no masses or tenderness, no impaction, soft brown stool guaiac negative. Extremities no CCE Neurological intact Skin clear, no rash, adequate turgor Impression: Abdominal pain, no specific etiology is suggested, chronic use of narcotics may be responsible for constipation. Plan: CBC and chemistries, analgesics and further evaluation depending on results. Past History - Past Medical History Allergies/Adverse Reactions: Allergies Allergy/AdvReac Type Severity Reaction Status Date / Time No Known Drug Allergies Allergy Verified 01/31/17 10:40 Home Medications: Ambulatory Orders Sucralfate [Carafate -] 1 gm PO BID 12/19/16 Levothyroxine [Synthroid -] 75 mcg PO DAILY@0700 tablet 12/24/16 Midodrine HCl [Proamatine -] 10 mg PO DAILY tablet 12/24/16 Polyethylene Glycol 3350 [Miralax 119 gm Btl -] 17 gm PO BID bottle 12/24/16 Amiodarone HCl [Cordarone -] 200 mg PO DAILY #30 tablet 12/25/16 Oxycodone HCl/Acetaminophen [Percocet 10-325 mg Tablet] 1 each PO BID PRN #35 tablet MDD 2 tablets 01/25/17 Sodium Polystyrene Sulfonate [Kayexalate -] 15 gm PO Q2D #1 bottle 01/25/17 Warfarin Sodium 4 mg PO DAILY #30 tablet 01/25/17 Oxycodone HCl/Acetaminophen [Percocet 5-325 mg Tablet] 1 tab PO Q6H #20 tablet MDD 4 01/31/17 Polyethylene Glycol 3350 [Miralax (For Bowel Prep) -] 17 gm PO DAILY #1 bottle 01/31/17 Anemia: Yes Asthma: Yes (HX BRONCHITIS, COPD) Cancer: No Cardiac Disorders: Yes (S/P open heart SX c/ bypass, stent placement) CVA: Yes (no residual) COPD: No CHF: Yes (CAD) Dementia: No Diabetes: Yes Dialysis: Yes (SUN-Sun) GI Disorders: Yes (reflux) Disorders: Yes (ESRD-DIALYSIS ,,SUN) HTN: Yes Hypercholesterolemia: Yes Liver Disease: No Suicide Attempt (Hx): No Seizures: No Thyroid Disease: No - Surgical History Abdominal Surgery: Yes Appendectomy: No Cardiac Surgery: Yes (Stent placement, Open heart SX, BYpass SX) Cholecystectomy: Yes Lung Surgery: No Neurologic Surgery: No Orthopedic Surgery: No - Immunization History Td Vaccination: Yes Immunization Up to Date: Yes - Psycho/Social/Smoking Cessation Hx Anxiety: Yes Suicidal Ideation: No Smoking Status: No Smoking History: Never smoked Years of Tobacco Use: 0 Have you smoked in the past 12 months: No Number of Cigarettes Smoked Daily: 0 Cigars Per Day: 0 Hx Alcohol Use: No Drug/Substance Use Hx: No Substance Use Type: None Hx Substance Use Treatment: No ED Treatment Course - LABORATORY CBC & Chemistry Diagram: 01/31/17 12:41 01/31/17 12:40 Progress Note - Progress Note Progress Note: Call received from [facility] pharmacy. Patient received a prescription for Percocet 10/325 on January 25 tablets. He is requesting a refill today. It was explained to him that this is not possible and that he must discuss a medication plan with his physician for continued use of this narcotic medication. He seemed to understand and agree. Medical Decision Making - Medical Decision Making 01/31/17 14:55 CBC and chemistries without significant abnormalities other than a low platelet count, which is chronic. White blood count is normal. After analgesics and Pepcid, the patient's pain resolved. Abdomen remained soft and was subsequently nontender. X-ray shows massive amount of stool, no sign of obstruction. It is questionable whether the patient's abdominal pain is of a functional nature. It is also possible that it is a tool to obtain more narcotic medication. It was found that the patient recently received 35 Percocet 10/325 just 5 days ago at [facility], and he is requesting more today. No more narcotics were prescribed. The patient was fully ambulatory and pain- free upon discharge. He was given instructions regarding constipation, for the use of MiraLAX, stool softeners, and increase fiber diet. He will follow-up with his primary physician. *DC/Admit/Observation/Transfer Diagnosis at time of Disposition: Abdominal pain Qualifiers: Abdominal location: generalized Qualified Code(s): R10.84 - Generalized abdominal pain - Discharge Dispostion Disposition: HOME Condition at time of disposition: Improved Admit: No - Prescriptions Prescriptions: Polyethylene Glycol 3350 [Miralax (For Bowel Prep) -] 17 gm PO DAILY #1 bottle Oxycodone HCl/Acetaminophen [Percocet 5-325 mg Tablet] 1 tab PO Q6H #20 tablet MDD 4 - Patient Instructions Printed Discharge Instructions: DI for Constipation Additional Instructions: Be sure to obtain your dialysis as scheduled tomorrow. Return to ER if the pain worsens or you experienced nausea, vomiting, fevers/ chills. Increase the fiber in your diet, take a stool softener, and use MiraLAX as directed in the morning. Limit your usage of narcotic medication such as Percocet.
[2017-01-31 10:23] VITALS: TEMP 98.1; BMI 25.8
[2017-01-31] MEDS ORDERED: OXYCODONE/APAP 5/325MG COMBO TABLET PO ONE (11:00)
[2017-01-31] MEDS ORDERED: FAMOTIDINE 20 MG TABLET PO ONE (11:00)
[2017-01-31] MEDS ORDERED: FAMOTIDINE 20 MG TABLET ONE (11:02)
[2017-01-31] MEDS ORDERED: OXYCODONE/APAP 5/325MG COMBO TABLET ONE (11:03)
[2017-01-31] MEDS ORDERED: KETOROLAC TROMETHAMINE 30 MG/1 ML VIAL IVPUSH ONE (12:21)
[2017-01-31] MEDS ORDERED: KETOROLAC TROMETHAMINE 60 MG/2 ML VIAL IM ONE (12:22)
[2017-01-31] MEDS ORDERED: KETOROLAC TROMETHAMINE 30 MG/1 ML VIAL ONE (12:24)
--- NOTE | 2017-01-31 13:11 | EKG ---
Test Reason : Blood Pressure : / mmHG Vent. Rate : 058 BPM Atrial Rate : 058 BPM P-R Int : 000 ms QRS Dur : 172 ms QT Int : 572 ms P-R-T Axes : 007 -89 -83 degrees QTc Int : 561 ms SINUS BRADYCARDIA LEFT AXIS DEVIATION RIGHT BUNDLE BRANCH BLOCK CANNOT RULE OUT ANTEROSEPTAL INFARCT (CITED ON OR BEFORE 21-AUG-2014) T WAVE ABNORMALITY, CONSIDER INFEROLATERAL ISCHEMIA ABNORMAL ECG WHEN COMPARED WITH ECG OF 21-JAN-2017 06:48, SINUS RHYTHM HAS REPLACED ATRIAL FIBRILLATION Confirmed by JEAN CARLOS SCHOFIELD MD ([id number] on 01/31/2017 1:10:39 PM Referred By: MICAELA ARNOLD Confirmed By:JEAN CARLOS SCHOFIELD MD
[2017-01-31 13:17] LABS: MCHC 33.7 g/dl (32.0-35.9); MEAN CELL VOLUME 86.2 fl (80-96); MEAN PLT VOLUME 9.3 fl (7.5-11.1); NEUTROPHILS 82.2 % (42.8-82.8); PLATELET COUNT 91 K/MM3 (134-434); RDW 16.2 % (11.9-15.9)
[2017-01-31 13:38] LABS: ALBUMIN 3.9 g/dl (3.5-5.0); ALK PHOS 95 U/L (32-92); ANION GAP 15 (8-16); BILIRUBIN,TOTAL 0.7 mg/dl (0.2-1.0); CALCIUM 8.7 mg/dl (8.4-10.2); CO2 24 mmol/L (22-28); GLUCOSE,RANDOM 295 mg/dl (74-106); SGOT/AST 23 U/L (10-42); SGPT/ALT 29 U/L (10-40); TOT PROT 7.4 g/dl (6.4-8.3)
[2017-01-31 13:53] LABS: CREATININE 8.5 mg/dl (0.6-1.3)
[2017-01-31 14:22] VITALS: PULSE 61
[2017-01-31 14:23] VITALS: BP 106/54
[2017-01-31 14:38] LABS: TROPONIN I (DFP) 0.04 ng/ml (0.03-0.50)
== END 2017-01-31 14:28 | disposition home or self-care (01) ==
LOC: FER 10:12
PROC: 3E0233Z Introduction of Anti-inflammatory into Muscle, Percutaneous Approach (ICD-10-PCS; principal; 2017-01-31)
DX: R10.84 Generalized abdominal pain (principal); Z99.2 Dependence on renal dialysis; I25.10 Atherosclerotic heart disease of native coronary artery without angina pectoris; E78.00 Pure hypercholesterolemia, unspecified; E11.22 Type 2 diabetes mellitus with diabetic chronic kidney disease; I13.11 Hypertensive heart and chronic kidney disease without heart failure, with stage 5 chronic kidney disease, or end stage renal disease; N18.6 End stage renal disease; J44.9 Chronic obstructive pulmonary disease, unspecified; Z95.5 Presence of coronary angioplasty implant and graft
CPT/HCPCS: 36415; 71020-TC; 74020-TC; 80053; 82272; 82550; 84484; 85025; 93005; 96372; 99283-25

== ENCOUNTER 2017-02-06 18:01 | Inpatient (IN) | payer OTHER ==
[2017-02-06 18:11] VITALS: BMI 25.9
[2017-02-06 19:34] LABS: BASOPHIL 0.6 % (0-2.0); EOSINOPHIL 3.1 % (0-4.5); MCH 28.1 pg (25.7-33.7); MCHC 31.7 g/dl (32.0-35.9); MEAN CELL VOLUME 88.7 fl (80-96); MEAN PLT VOLUME 9.8 fl (7.5-11.1); NEUTROPHILS 75.3 % (42.8-82.8); PLATELET COUNT 85 K/MM3 (134-434); RDW 17.1 % (11.9-15.9)
--- NOTE | 2017-02-06 19:50 | PDOC ---
History of Present Illness - General History Source: Patient Exam Limitations: No Limitations - History of Present Illness Initial Comments: 02/06/17 20:13 The patient is a 61 year old male, with a significant past medical history of Anemia, Asthma, COPD, CVA, HTN, HLD s/p permanent pacemaker placement, CAD (s/p stent placement and CABG), Type II Diabetes, ESRD (on HD ,, Sun) who presents to the emergency department with generalized weakness and chest pain. Patient describes his chest pain is pressure-like radiating down his L arm and is associated with SOB. Patient states he also feels increasingly weak and is unable to stand. Patient reports nausea and abdominal discomfort however denies vomiting. Patient notes his last full HD was Sunday--January. Today, patient did not go to HD due to his weakness and presents here for further evaluation. He denies headache, fever, chills, vomit, diarrhea or constipation. He denies dysuria, frequency, urgency or hematuria. Allergies: NKA Past surgical history: CABG, stent placement, Cholecystectomy Social history: None PCP: Herman Armenta [employer] Analyst: <Brandi Guillen - Last Filed: 02/06/17 22:54> - General History Source: Patient <Wesley Alegria - Last Filed: 02/07/17 19:45> - General Chief Complaint: Weakness Stated Complaint: WEAKNESS Time Seen by Provider: 02/06/17 19:43 Past History <Brandi Guillen - Last Filed: 02/06/17 22:54> - Past Medical History Anemia: Yes Asthma: Yes (HX BRONCHITIS, COPD) Cancer: No Cardiac Disorders: Yes (S/P open heart SX c/ bypass, stent placement) CVA: Yes (no residual) COPD: No CHF: Yes (CAD) Dementia: No Diabetes: Yes Dialysis: Yes (SUN-Sun) GI Disorders: Yes (reflux) Disorders: Yes (ESRD-DIALYSIS ,,SUN) HTN: Yes Hypercholesterolemia: Yes Liver Disease: No Suicide Attempt (Hx): No Seizures: No Thyroid Disease: No - Surgical History Abdominal Surgery: Yes Appendectomy: No Cardiac Surgery: Yes (Stent placement, Open heart SX, BYpass SX) Cholecystectomy: Yes Lung Surgery: No Neurologic Surgery: No Orthopedic Surgery: No - Immunization History Td Vaccination: Yes Immunization Up to Date: Yes - Psycho/Social/Smoking Cessation Hx Anxiety: Yes Suicidal Ideation: No Smoking Status: No Smoking History: Never smoked Years of Tobacco Use: 0 Have you smoked in the past 12 months: No Number of Cigarettes Smoked Daily: 0 Cigars Per Day: 0 Information on smoking cessation initiated: No Hx Alcohol Use: No Drug/Substance Use Hx: No Substance Use Type: None Hx Substance Use Treatment: No <Wesley Alegria - Last Filed: 02/07/17 19:45> - Past Medical History Allergies/Adverse Reactions: Allergies Allergy/AdvReac Type Severity Reaction Status Date / Time No Known Drug Allergies Allergy Verified 02/06/17 18:11 Home Medications: Ambulatory Orders Sucralfate [Carafate -] 1 gm PO BID 12/19/16 Levothyroxine [Synthroid -] 75 mcg PO DAILY@0700 tablet 12/24/16 Midodrine HCl [Proamatine -] 10 mg PO DAILY tablet 12/24/16 Amiodarone HCl [Cordarone -] 200 mg PO DAILY #30 tablet 12/25/16 Sodium Polystyrene Sulfonate [Kayexalate -] 15 gm PO Q2D #1 bottle 01/25/17 Warfarin Sodium 4 mg PO DAILY #30 tablet 01/25/17 Oxycodone HCl/Acetaminophen [Percocet 5-325 mg Tablet] 1 tab PO Q6H #20 tablet MDD 4 01/31/17 Polyethylene Glycol 3350 [Miralax (For Bowel Prep) -] 17 gm PO DAILY #1 bottle 01/31/17 Review of Systems - Review of Systems Able to Perform ROS?: Yes Comments:: 02/06/17 20:13 GENERAL/CONSTITUTIONAL: No fever or chills. + generalized weakness. HEAD, EYES, EARS, NOSE AND THROAT: No change in vision. No ear pain or discharge. No sore throat. CARDIOVASCULAR: No chest pain or shortness of breath. RESPIRATORY: No cough, wheezing, or hemoptysis. GASTROINTESTINAL: No nausea, vomiting, diarrhea or constipation. GENITOURINARY: No dysuria, frequency, or change in urination. MUSCULOSKELETAL: No joint or muscle swelling or pain. No neck or back pain. SKIN: No rash NEUROLOGIC: No headache, vertigo, loss of consciousness, or change in strength/ sensation. ENDOCRINE: No increased thirst. No abnormal weight change. HEMATOLOGIC/LYMPHATIC: No anemia, easy bleeding, or history of blood clots. ALLERGIC/IMMUNOLOGIC: No hives or skin allergy. <Brandi Guillen - Last Filed: 02/06/17 22:54> *Physical Exam - Vital Signs Last Vital Signs Temp Pulse Resp BP Pulse Ox 97.5 F L 60 16 99/42 97 02/06/17 18:05 02/06/17 18:05 02/06/17 18:05 02/06/17 18:05 02/06/17 18:05 - Physical Exam Comments: 02/06/17 20:14 GENERAL: Awake, alert, and fully oriented, +in mild distress. HEAD: No signs of trauma EYES: PERRLA, EOMI, sclera anicteric. +Pale conjunctiva. ENT: Auricles normal inspection, hearing grossly normal, nares patent, oropharynx clear without exudates. Moist mucosa NECK: Normal ROM, supple, no lymphadenopathy, JVD, or masses LUNGS: Crackles throughout all lung viera. Breath sounds equal, clear to auscultation bilaterally. No wheezes. HEART: Regular rate and rhythm, normal S1 and S2, + 3/6 systolic murmur. rubs or gallops ABDOMEN: +Distended. +Minimal diffuse tenderness. Normoactive bowel sounds. No guarding, no rebound. No masses EXTREMITIES: Normal range of motion, no edema. No clubbing or cyanosis. No cords, erythema, or tenderness NEUROLOGICAL: Cranial nerves II through XII grossly intact. Normal speech, normal gait SKIN: +Av Fistula on R upper arm with positive bruits and thrill. Warm, Dry, normal turgor, no rashes or lesions noted. <Brandi Guillen - Last Filed: 02/06/17 22:54> - Vital Signs Last Vital Signs Temp Pulse Resp BP Pulse Ox 97.5 F L 60 16 99/42 97 02/06/17 18:05 02/06/17 18:05 02/06/17 18:05 02/06/17 18:05 02/06/17 18:05 <Wesley Alegria - Last Filed: 02/07/17 19:45> ED Treatment Course - LABORATORY CBC & Chemistry Diagram: 02/06/17 19:17 02/06/17 20:17 - ADDITIONAL ORDERS Additional order review: Laboratory Results 02/06/17 19:17 Sodium Cancelled Potassium Cancelled Chloride Cancelled Carbon Dioxide Cancelled Anion Gap Cancelled BUN Cancelled Creatinine Cancelled Creat Clearance w eGFR Cancelled Random Glucose Cancelled Calcium Cancelled Total Bilirubin Cancelled AST Cancelled ALT Cancelled Alkaline Phosphatase Cancelled Creatine Kinase Cancelled Troponin I Cancelled Total Protein Cancelled Albumin Cancelled 02/06/17 19:17 RBC 2.29 L D MCV 88.7 MCHC 31.7 L RDW 17.1 H MPV 9.8 D Neutrophils % 75.3 Lymphocytes % 9.8 Monocytes % 11.2 H Eosinophils % 3.1 Basophils % 0.6 <Brandi Guillen - Last Filed: 02/06/17 22:54> - LABORATORY CBC & Chemistry Diagram: 02/07/17 14:00 02/06/17 20:17 - ADDITIONAL ORDERS Additional order review: 02/06/17 19:17 RBC 2.29 L D MCV 88.7 MCHC 31.7 L RDW 17.1 H MPV 9.8 D Neutrophils % 75.3 Lymphocytes % 9.8 Monocytes % 11.2 H Eosinophils % 3.1 Basophils % 0.6 - RADIOLOGY Radiology Studies Ordered: Category Date Time Status CHEST X-RAY PORTABLE* [RAD] Stat Radiology 02/06/17 19:15 Completed <Wesley Alegria - Last Filed: 02/07/17 19:45> Medical Decision Making - Medical Decision Making 02/06/17 21:23- Paged Dr. Sutton via phone answering service. Awaiting call back. 02/06/17 21:31- Dr. Sutton returned the page and the patient's case was discussed. 02/06/17 21:35- Dr. Grissom paged via phone answering service. 02/06/17 22:11- Dr. Grissom paged via phone answering service. 02/06/17 22:29- Dr. Grissom paged via phone answering service 02/06/17 22:53- Dr. Grissom returned the page and the patient's case was discussed. <Brandi Guillen - Last Filed: 02/06/17 22:54> - Medical Decision Making 02/07/17 19:44 Dr. Alegria: The scribe's documentation has been prepared under my direction and personally reviewed by me in its entirery. I confirm that the note above accurately reflects all work, treatment, procedures, and medical decision making performed by me. <Wesley Alegria - Last Filed: 02/07/17 19:45> *DC/Admit/Observation/Transfer - Attestations Scribe Attestion: 02/06/17 20:14 Documentation prepared by Brandi Guillen, acting as biomedical photographer for Wesley Alegria DO. <Brandi Guillen - Last Filed: 02/06/17 22:54> - Discharge Dispostion Admit: Yes <Wesley Alegria - Last Filed: 02/07/17 19:45> Diagnosis at time of Disposition: Anemia, ESRD (end stage renal disease) - Referrals
[2017-02-06 21:15] LABS: HYPOCHROMIA 2+; PLATELET ESTIMATE DECREASED (NORMAL)
[2017-02-06 21:25] LABS: PROTHROMBIN TIME (PATIENT) 99.4 SEC (9.98-11.88)
[2017-02-06 21:26] LABS: INR 8.65 (0.82-1.09)
[2017-02-06 21:46] LABS: ALBUMIN 2.8 g/dl (3.4-5.0); ANION GAP 17 (8-16); BILIRUBIN,TOTAL 0.3 mg/dL (0.2-1.0); CALCIUM 7.3 mg/dL (8.5-10.1); CO2 20 mmol/L (21-32); GLUCOSE,RANDOM 200 mg/dL (74-106); SGOT/AST 24 U/L (15-37); SGPT/ALT 30 U/L (12-78); TOT PROT 6.2 g/dl (6.4-8.2)
[2017-02-06 21:51] LABS: ALK PHOS 87 U/L (45-117)
[2017-02-06 22:06] LABS: CREATININE 10.3 mg/dL (0.7-1.3)
[2017-02-06] MEDS ORDERED: morphine CARPU-JECT 2 MG/1 ML DISP.SYRIN IVPUSH ONE (22:07)
[2017-02-06] MEDS ORDERED: morphine CARPU-JECT 4 MG/1 ML DISP.SYRIN ONE (22:13)
[2017-02-07] MEDS ORDERED: PT OWN MED DRAWER 7, Y5N ONE ×2 (09:59→21:23)
[2017-02-07] MEDS: LEVOTHYROXINE NA 75 MCG TABLET (FP) PO SCH (10:01)
[2017-02-07] MEDS: AMIODARONE HCL 200 MG TABLET (FP) PO SCH (10:01)
[2017-02-07] MEDS: SUCRALFATE 1 GM TABLET (FP) PO SCH ×2 (10:01→21:44)
[2017-02-07] MEDS: MIDODRINE HCL 5 MG TABLET PO SCH (10:02)
[2017-02-07] MEDS: POLYETHYLENE GLYCOL 3350 119 GM BTL PO SCH (10:02)
--- NOTE | 2017-02-07 10:13 | CONSULT ---
Consultation: REQUESTING PROVIDER: CONSULT REQUEST: We have been asked to medically evaluate this patient for ( Nephrology). HISTORY OF PRESENT ILLNESS: 61 year old male, with a significant past medical history of Anemia, Asthma, COPD, CVA, HTN, HLD,s/p permanent pacemaker placement , CAD (s/p stent placement and CABG in 2008), Type II Diabetes, ESRD (on HD , , Sat) since 2011, fistula in right arm. who presents to the emergency department with generalized weakness, dizziness, chest pain and sob. Patient states that he was recently discharged from the hospital for same problem but he never got better after discharge. He states that his last HD was on Sunday --January.night for 3 hours in which no fluid was removed. Post Hd he was feeling more weak and was unable to stand and started feeling generalized weak, sob, chest pain. Chest pain was pressure type non radiating, present on both side of chest which got relieved after pain med in ED. Patient missed his sunday HD due to his generalized weakness and came to hospital. He states that he always have SOB and gets sob after walking for 10- 15 min( unable to tell how many blocks) but this time he was feeling a sob while at rest. Denies palpitations. Patient also states that his abdomen has distended as it always get distended but gets down after HD. He also reports nausea and vomiting. He vomited this morning after having breakfast, contain food particles, no blood. He also reports that he has black color stool from many days. In hospital patinet found have supratheraputic INR of 8.6 with Hb of 6.4 ( in his last admission his Hb was 11.3 on 01/31/17). Patient got 2 units of blood and now fells slightly better. He denies headache, fever, chills, vomit, diarrhea or constipation ( takes polyethylene glycol). He denies dysuria, frequency, urgency or hematuria. 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 REVIEW OF SYSTEMS: CONSTITUTIONAL: Absent: fever, chills, diaphoresis, generalized weakness, malaise, loss of appetite, weight change HEENT: Absent: rhinorrhea, nasal congestion, throat pain, throat swelling, CARDIOVASCULAR: Absent: chest pain, syncope, palpitations, irregular heart rate, lightheadedness , peripheral edema RESPIRATORY: Absent: cough, shortness of breath, dyspnea with exertion, orthopnea, wheezing GASTROINTESTINAL: Absent: abdominal pain, abdominal distension, nausea, vomiting, diarrhea, constipation, GENITOURINARY: doesn't make urine MUSCULOSKELETAL: Absent: myalgia, SKIN: Absent: rash, itching, pallor NEUROLOGIC: Absent: focal weakness or paresthesias, dizziness, PHYSICAL EXAMINATION Vital Signs - 24 hr 02/06/17 02/06/17 02/07/17 22:49 23:30 06:00 Temperature 98.3 F 97.8 F 98.5 F Pulse Rate 64 58 L Pulse Rate [ 82 Left Radial] Respiratory 20 20 18 Rate Blood Pressure 95/47 92/51 Blood Pressure 100/65 [Left Arm] O2 Sat by Pulse 98 100 Oximetry (%) 02/07/17 10:00 Temperature 98.6 F Pulse Rate 54 L Pulse Rate [ Left Radial] Respiratory 20 Rate Blood Pressure 107/60 Blood Pressure [Left Arm] O2 Sat by Pulse Oximetry (%) GENERAL: Awake, alert, and fully oriented, HEAD: Normal with no signs of trauma. EYES: Pupils equal, round and reactive to light, EARS, NOSE, THROAT: Ears normal, nares patent, oropharynx clear without exudates. Moist mucous membranes. LUNGS: Breath sounds equal, clear to auscultation bilaterally. No wheezes, and no crackles. No accessory muscle use. HEART: s1s2 normal. ABDOMEN: Soft, nontender, distended, normoactive bowel sounds, no guarding, no rebound. umbilical hernia, UPPER EXTREMITIES: 2+ pulses, warm, well-perfused. No cyanosis. fistula present in R arm, . LOWER EXTREMITIES: , warm, No calf tenderness. No peripheral edema. SKIN: Warm, dry, Active Medications Generic Name Dose Route Start Last Admin Trade Name Freq PRN Reason Stop Dose Admin Acetaminophen 325 mg 02/07/17 08:35 Tylenol - PO Q6H PRN FEVER OR PAIN Amiodarone HCl 200 mg 02/07/17 10:00 02/07/17 10:01 Cordarone - PO 200 mg DAILY RACHEL Administration Levothyroxine Sodium 75 mcg 02/07/17 08:45 02/07/17 10:01 Synthroid - PO 75 mcg DAILY@0700 RACHEL Administration Midodrine 10 mg 02/07/17 10:00 02/07/17 10:02 Proamatine - PO 10 mg DAILY RACHEL Administration Oxycodone HCl 5 mg 02/07/17 08:35 Roxicodone - PO Q6H PRN Polyethylene Glycol 17 gm 02/07/17 10:00 02/07/17 10:02 Miralax (For Daily Use) - PO 17 gm DAILY RACHEL Administration Sodium Polystyrene Sulfonate 15 gm 02/08/17 10:00 Kayexalate - PO Q2D RACHEL Sucralfate 1 gm 02/07/17 10:00 02/07/17 10:01 Carafate - PO 1 gm BID RACHEL Administration ASSESSMENT/PLAN: ESRD (end stage renal disease) on HD ( , , sun ) Anemia Supratheraputic INR Coronary artery disease s/p CABG Diabetes mellitus type II HTN (hypertension) Hypothyroidism Atrial fibrillation : on amiodarone and has pace maker Cirrhosis S/P CABG (coronary artery bypass graft) Asthma Vomiting. Plan; Got 2 units of blood, check repeat Hb Keep Hb around 10. Correct INR, coumadin on hold. Monitor for active bleeding. Get stool for occult blood. Take fall risk precautions. HD today Monitor vitals. Monitor for fluid overload. Renal diet. Dispo: We will continue to follow the patient. Thank you for this consultative opportunity. Visit type - Emergency Visit Emergency Visit: Yes ED Registration Date: 02/06/17 Care time: The patient presented to the Emergency Department on the above date and was hospitalized for further evaluation of their emergent condition. - New Patient This patient is new to me today: Yes Date on this admission: 02/07/17 - Critical Care Critical Care patient: No
[2017-02-07] MEDS: oxyCODONE HCL 5 MG TABLET PO PRN ×3 (11:20→21:44)
--- NOTE | 2017-02-07 12:57 | HP ---
DATE OF ADMISSION: DATE OF DICTATION: 02/07/2017 CHIEF COMPLAINT: Shortness of breath. HISTORY OF PRESENT ILLNESS: This is a 61-year-old male with past history of anemia, asthma, COPD, CVA, hypertension, also cardiac arrhythmia, who came to the ER having missed his dialysis, had been feeling weak, and in the ER, he was found to be very short of breath and very badly anemic. So, he was admitted to the hospital for anemia workup and also he needed dialysis. PAST MEDICAL HISTORY: As above. ALLERGIES: No known drug allergies. SOCIAL HISTORY: He lives with his family. PAST SURGICAL HISTORY: He has a history in the past of CABG, stent placement, and cholecystectomy. MEDICATIONS: At home, he takes multiple medications for the diabetes, sucralfate, levothyroxine, amiodarone and warfarin (and his INR in the hospital is very high, also), and pain medication oxycodone. REVIEW OF SYSTEMS: He is negative for any chest pain, positive for shortness of breath, negative for stroke, negative for dizziness, but positive for diabetes and positive for chronic pain. EXAMINATION: General: Elderly man lying in bed, comfortable. Vital Signs: Blood pressure 130/70, temperature 98. HEENT: Pallor positive. Neck: Supple. Neck JVD. Lungs: Bilaterally coarse and also decreased breath sounds and rales. Heart: S1 is positive and tachycardic. Abdomen: Soft, nontender, slightly distended, and ascites present. Neurologic: Alert and oriented. LABORATORY DATA: Hemoglobin in the ER was 6.4 and white count was normal. Also, a high creatinine because he missed dialysis. ASSESSMENT: Very bad anemic and failure on dialysis, cardiac arrhythmia, diabetes, hypertension. PLAN: Admit to the hospital. Consult with Dr. Oconnor for nephrology. He needs dialysis today to blood transfusion. Will follow. Megha [id number]
[2017-02-07] MEDS ORDERED: PARICALCITOL 5 MCG/ML VIAL IVPUSH ONE (13:32)
[2017-02-07] MEDS ORDERED: EPOETIN ALFA 3,000 UNIT/1 ML ML IVPUSH ONE (13:32)
[2017-02-07 15:01] LABS: MCHC 33.1 g/dl (32.0-35.9); MEAN CELL VOLUME 84.5 fl (80-96); MEAN PLT VOLUME 9.2 fl (7.5-11.1); PLATELET COUNT 83 K/MM3 (134-434); RDW 18.9 % (11.9-15.9); WHITE BLOOD COUNT 6.2 K/mm3 (4.0-10.0)
--- NOTE | 2017-02-07 17:35 | PN ---
Teaching Attending Note Name of Resident: Harjinder Richard (Nephrology) ATTENDING PHYSICIAN STATEMENT I saw and evaluated the patient. I reviewed the resident's note and discussed the case with the resident. I agree with the resident's findings and plan as documented. Nephrology Consult Please see consult filled out by resident. Pt is a 61 year old male with pmhx of ESRD, ASthma, anemai, and CAD who presents with SOB. His last HD was on Sat. He did not go yesterday as he did not feel well. He was found to be anemic as well. He denies chest pain or palpitations. pmhx copd esrd anemia cva cad psh avf soc hx neg ros neg Current Medications Generic Name Dose Route Start Last Admin Trade Name Freq PRN Reason Stop Dose Admin Acetaminophen 325 mg 02/07/17 08:35 Tylenol - PO Q6H PRN FEVER OR PAIN Amiodarone HCl 200 mg 02/07/17 10:00 02/07/17 10:01 Cordarone - PO 200 mg DAILY RACHEL Administration Levothyroxine Sodium 75 mcg 02/07/17 08:45 02/07/17 10:01 Synthroid - PO 75 mcg DAILY@0700 RACHEL Administration Midodrine 10 mg 02/07/17 10:00 02/07/17 10:02 Proamatine - PO 10 mg DAILY RACHEL Administration Oxycodone HCl 5 mg 02/07/17 08:35 02/07/17 11:20 Roxicodone - PO 5 mg Q6H PRN Administration Polyethylene Glycol 17 gm 02/07/17 10:00 02/07/17 10:02 Miralax (For Daily Use) - PO 17 gm DAILY RACHEL Administration Sodium Polystyrene Sulfonate 15 gm 02/08/17 10:00 Kayexalate - PO Q2D RACHEL Sucralfate 1 gm 02/07/17 10:00 02/07/17 10:01 Carafate - PO 1 gm BID RACHEL Administration Last Vital Signs Temp Pulse Resp BP Pulse Ox 97.7 F 74 18 108/63 99 02/07/17 16:00 02/07/17 16:00 02/07/17 16:00 02/07/17 16:00 02/07/17 09:00 Laboratory Tests 02/06/17 02/06/17 02/07/17 19:17 20:17 14:00 Hgb 6.4 L* D 8.4 L D Sodium 130 L Potassium 4.1 Chloride 93 L Carbon Dioxide 20 L D Anion Gap 17 H BUN 126 H* D Creatinine 10.3 H* D cardio s1s2 pulm rhonchi GI soft ext edema avf with thrill and bruit neuro awake and alert skin neg rash Impression 1. ESRD 2. COPD 3. asthma 4. anemia 5. chol 6. hypotension on midodrine Plan - will arrange for HD today - monitor hg - will cont epogen - called center for HD orders - will follow
[2017-02-07] MEDS: ACETAMINOPHEN 325 MG TABLET (FP) PO PRN (21:45)
[2017-02-08] MEDS: LEVOTHYROXINE NA 75 MCG TABLET (FP) PO SCH (06:26)
[2017-02-08] MEDS: oxyCODONE HCL 5 MG TABLET PO PRN ×2 (07:12→13:17)
[2017-02-08 08:39] LABS: PROTHROMBIN TIME (PATIENT) 48.7 SEC (9.98-11.88)
[2017-02-08 08:51] LABS: ANION GAP 9 (8-16); CALCIUM 7.9 mg/dL (8.5-10.1); CO2 28 mmol/L (21-32); CREATININE 6.6 mg/dL (0.7-1.3); GLUCOSE,RANDOM 228 mg/dL (74-106)
[2017-02-08 08:57] LABS: INR 4.3 (0.82-1.09)
--- NOTE | 2017-02-08 09:02 | PN ---
Physical Exam: SUBJECTIVE: Patient seen and examined. Patient feels little better than yesterday. Got HD done yesterday. Hb improved to 8.4 after 2 blood transfusions. OBJECTIVE: Vital Signs Period Temp Pulse Resp BP Sys/Lopez Pulse Ox Last 24 Hr 97.7 F-99.6 F 54-81 16-20 102-136/53-73 96 GENERAL: Awake, alert, and fully oriented, HEAD: Normal with no signs of trauma. EYES: Pupils equal, round and reactive to light, EARS, NOSE, THROAT: oropharynx clear without exudates. Moist mucous membranes. LUNGS: Breath sounds equal, clear to auscultation bilaterally. No wheezes, and no crackles. No accessory muscle use. HEART: s1s2 normal. ABDOMEN: Soft, nontender, distended, normoactive bowel sounds, no guarding, no rebound. umbilical hernia, UPPER EXTREMITIES: 2+ pulses, warm, well-perfused. No cyanosis. fistula present in R arm, . LOWER EXTREMITIES: , warm, No calf tenderness. Peripheral edema 1+ Laboratory Results - last 24 hr 02/07/17 02/07/17 02/07/17 11:43 14:00 18:43 WBC 6.2 D RBC 3.01 L D Hgb 8.4 L D Hct 25.4 L D MCV 84.5 MCH 28.0 MCHC 33.1 RDW 18.9 H D Plt Count 83 L MPV 9.2 INR Sodium Potassium Chloride Carbon Dioxide Anion Gap BUN Creatinine POC Glucometer 231 193 Random Glucose Calcium 02/07/17 02/08/17 02/08/17 23:16 06:27 08:05 WBC RBC Hgb Hct MCV MCH MCHC RDW Plt Count MPV INR Sodium 136 Potassium 3.7 Chloride 99 Carbon Dioxide 28 D Anion Gap 9 BUN 68 H D Creatinine 6.6 H D POC Glucometer 268 238 Random Glucose 228 H Calcium 7.9 L 02/08/17 08:05 WBC RBC Hgb Hct MCV MCH MCHC RDW Plt Count MPV INR 4.30 H* D Sodium Potassium Chloride Carbon Dioxide Anion Gap BUN Creatinine POC Glucometer Random Glucose Calcium Active Medications Generic Name Dose Route Start Last Admin Trade Name Freq PRN Reason Stop Dose Admin Acetaminophen 325 mg 02/07/17 08:35 02/07/17 21:45 Tylenol - PO 325 mg Q6H PRN Administration FEVER OR PAIN Amiodarone HCl 200 mg 02/07/17 10:00 02/07/17 10:01 Cordarone - PO 200 mg DAILY RACHEL Administration Levothyroxine Sodium 75 mcg 02/07/17 08:45 02/08/17 06:26 Synthroid - PO 75 mcg DAILY@0700 RACHEL Administration Midodrine 10 mg 02/07/17 10:00 02/07/17 10:02 Proamatine - PO 10 mg DAILY RACHEL Administration Oxycodone HCl 10 mg 02/07/17 20:51 02/08/17 07:12 Roxicodone - PO 10 mg Q6H PRN Administration Polyethylene Glycol 17 gm 02/07/17 10:00 02/07/17 10:02 Miralax (For Daily Use) - PO 17 gm DAILY RACHEL Administration Sodium Polystyrene Sulfonate 15 gm 02/08/17 10:00 Kayexalate - PO Q2D RACHEL Sucralfate 1 gm 02/07/17 10:00 02/07/17 21:44 Carafate - PO 1 gm BID RACHEL Administration ASSESSMENT/PLAN: ESRD (end stage renal disease) on HD ( , , sun ) Anemia Coumadin induced coagulopathy: Supratheraputic INR Coronary artery disease s/p CABG Diabetes mellitus type II HTN (hypertension) Hypothyroidism Atrial fibrillation : on amiodarone and has pace maker Cirrhosis S/P CABG (coronary artery bypass graft) Asthma Vomiting. Plan; Got HD yesterday Hb improved to 8.4 s/p 2 blood transfusions and also got epogen Goal to keep around 10. Iron studies pending. Correct INR, coumadin on hold. todays INR decreased to4.3. Monitor Hb and bmp HD today and repeat haemoglobin before HD Monitor vitals. Monitor for fluid overload. Renal diet. Dispo: We will continue to follow the patient. Thank you for this consultative opportunity. Visit type - Emergency Visit Emergency Visit: Yes ED Registration Date: 02/06/17 Care time: The patient presented to the Emergency Department on the above date and was hospitalized for further evaluation of their emergent condition. - New Patient This patient is new to me today: No - Critical Care Critical Care patient: No
[2017-02-08] MEDS: INSULIN DETEMIR 100 UNITS/ML MDV SQ SCH (10:01)
[2017-02-08] MEDS: MIDODRINE HCL 5 MG TABLET PO SCH (10:01)
[2017-02-08] MEDS: AMIODARONE HCL 200 MG TABLET (FP) PO SCH (10:01)
[2017-02-08] MEDS: SODIUM POLYSTYRENE SULFONATE 15 GM/60 ML BOTTLE PO SCH (10:01)
[2017-02-08] MEDS: POLYETHYLENE GLYCOL 3350 119 GM BTL PO SCH (10:06)
--- NOTE | 2017-02-08 11:25 | EKG ---
Test Reason : Blood Pressure : / mmHG Vent. Rate : 057 BPM Atrial Rate : 057 BPM P-R Int : 000 ms QRS Dur : 188 ms QT Int : 534 ms P-R-T Axes : 000 -76 -47 degrees QTc Int : 519 ms SINUS BRADYCARDIA RIGHT BUNDLE BRANCH BLOCK ANTEROSEPTAL INFARCT , AGE UNDETERMINED ABNORMAL ECG Confirmed by ASHLEY PINTO MD ([id number]) on 02/08/2017 11:25:11 AM Referred By: Confirmed By:ASHLEY PINTO MD
[2017-02-08] MEDS ORDERED: INSULIN DETEMIR 100 UNITS/ML MDV SQ ONE ×2 (12:17→12:18)
[2017-02-08] MEDS ORDERED: INSULIN (NOVOLOG MIX 70/30) 100 UNITS/ML MDV SQ ONE (12:18)
[2017-02-08] MEDS: SUCRALFATE 1 GM TABLET (FP) PO SCH (12:24)
[2017-02-08] MEDS: INSULIN SLIDING SCALE (NOVOLOG) 1 VIAL SQ SCH ×2 (12:55→17:09)
--- NOTE | 2017-02-08 14:23 | PN ---
Progress Note, Physician Chief Complaint: No new complaints - Current Medication List Current Medications: Active Medications Acetaminophen (Tylenol -) 325 mg PO Q6H PRN PRN Reason: FEVER OR PAIN Last Admin: 02/07/17 21:45 Dose: 325 mg Amiodarone HCl (Cordarone -) 200 mg PO DAILY [facility] Last Admin: 02/08/17 10:01 Dose: 200 mg Insulin Aspart (Novolog Vial Sliding Scale -) 1 vial SQ ACHS [facility] PRN Reason: Protocol Last Admin: 02/08/17 12:55 Dose: 2 units Insulin Detemir (Levemir Vial) 15 units SQ ACBK [facility] Last Admin: 02/08/17 10:01 Dose: 15 units Levothyroxine Sodium (Synthroid -) 75 mcg PO DAILY@0700 [facility] Last Admin: 02/08/17 06:26 Dose: 75 mcg Midodrine (Proamatine -) 10 mg PO DAILY [facility] Last Admin: 02/08/17 10:01 Dose: 10 mg Oxycodone HCl (Roxicodone -) 10 mg PO Q6H PRN Last Admin: 02/08/17 13:17 Dose: 10 mg Polyethylene Glycol (Miralax (For Daily Use) -) 17 gm PO DAILY [facility] Last Admin: 02/08/17 10:06 Dose: 17 gm Sodium Polystyrene Sulfonate (Kayexalate -) 15 gm PO Q2D [facility] Last Admin: 02/08/17 10:01 Dose: 15 gm Sucralfate (Carafate -) 1 gm PO BID [facility] Last Admin: 02/08/17 12:24 Dose: 1 gm - Objective Vital Signs: Vital Signs Temperature 98 F 02/08/17 11:17 Pulse Rate 73 02/08/17 11:17 Respiratory Rate 20 02/08/17 11:17 Blood Pressure 113/68 02/08/17 11:17 O2 Sat by Pulse Oximetry (%) 98 02/08/17 11:58 Constitutional: Yes: No Distress Neck: Yes: Supple Respiratory: Yes: CTA Bilaterally. No: Accessory Muscle Use Gastrointestinal: Yes: Normal Bowel Sounds, Soft Neurological: Yes: Alert, Oriented. No: Loss of Sensation ...Motor Strength: WNL Labs: CBC, BMP 02/07/17 14:00 02/08/17 08:05 INR, PTT INR 4.30 (0.82-1.09) H* D 02/08/17 08:05 Problem List - Problems (1) Anemia Assessment/Plan: Stool OB positive, will get GI eval. Hb stable Code(s): D64.9 - ANEMIA, UNSPECIFIED Qualifiers: Anemia type: due to chronic kidney disease Chronic kidney disease stage : on chronic dialysis Qualified Code(s): N18.6 - End stage renal disease ; D63.1 - Anemia in chronic kidney disease; Z99.2 - Dependence on renal dialysis (2) ESRD (end stage renal disease) Assessment/Plan: HD as per renal Code(s): N18.6 - END STAGE RENAL DISEASE
[2017-02-08] MEDS ORDERED: INSULIN (NOVOLOG) ASPART 100 UNITS/ML 10ML VIAL SQ SCH (16:30)
[2017-02-08] MEDS ORDERED: EPOETIN ALFA 3,000 UNIT/1 ML ML IVPUSH ONE (17:35)
--- NOTE | 2017-02-08 17:35 | PN ---
Teaching Attending Note Name of Resident: Harjinder Richard (Nephrology) ATTENDING PHYSICIAN STATEMENT I saw and evaluated the patient. I reviewed the resident's note and discussed the case with the resident. I agree with the resident's findings and plan as documented. Renal follow up Pt seen and examined at bedside. His breathing is not at baseline. Current Medications Generic Name Dose Route Start Last Admin Trade Name Freq PRN Reason Stop Dose Admin Acetaminophen 325 mg 02/07/17 08:35 02/07/17 21:45 Tylenol - PO 325 mg Q6H PRN Administration FEVER OR PAIN Amiodarone HCl 200 mg 02/07/17 10:00 02/08/17 10:01 Cordarone - PO 200 mg DAILY [facility] Administration Insulin Aspart 1 vial 02/08/17 13:00 02/08/17 17:09 Novolog Vial Sliding Scale - SQ Not Given ACHS [facility] Protocol Insulin Detemir 15 units 02/08/17 10:00 02/08/17 10:01 Levemir Vial SQ 15 units ACBK [facility] Administration Levothyroxine Sodium 75 mcg 02/07/17 08:45 02/08/17 06:26 Synthroid - PO 75 mcg DAILY@0700 [facility] Administration Midodrine 10 mg 02/07/17 10:00 02/08/17 10:01 Proamatine - PO 10 mg DAILY [facility] Administration Oxycodone HCl 10 mg 02/07/17 20:51 02/08/17 13:17 Roxicodone - PO 10 mg Q6H PRN Administration Polyethylene Glycol 17 gm 02/07/17 10:00 02/08/17 10:06 Miralax (For Daily Use) - PO 17 gm DAILY [facility] Administration Sodium Polystyrene Sulfonate 15 gm 02/08/17 10:00 02/08/17 10:01 Kayexalate - PO 15 gm Q2D [facility] Administration Sucralfate 1 gm 02/07/17 10:00 02/08/17 12:24 Carafate - PO 1 gm BID [facility] Administration Last Vital Signs Temp Pulse Resp BP Pulse Ox 98 F 67 18 110/47 98 02/08/17 16:30 02/08/17 16:30 02/08/17 16:30 02/08/17 16:30 02/08/17 11:58 Laboratory Tests 02/07/17 02/08/17 14:00 08:05 Hgb 8.4 L D Potassium 3.7 BUN 68 H D Creatinine 6.6 H D cardio s1s2 pulm rhonchi GI soft ext edema avf with thrill and bruit neuro awake and alert skin neg rash Impression 1. ESRD 2. COPD 3. asthma 4. anemia 5. chol 6. hypotension on midodrine Plan - will dialyze again today - GI eval - check hg - will cont epogen - will follow
[2017-02-08 21:21] LABS: MCH 27.7 pg (25.7-33.7); MCHC 32.4 g/dl (32.0-35.9); MEAN CELL VOLUME 85.7 fl (80-96); MEAN PLT VOLUME 9.3 fl (7.5-11.1); RDW 19.4 % (11.9-15.9); WHITE BLOOD COUNT 4.3 K/mm3 (4.0-10.0)
[2017-02-08 21:45] LABS: PLATELET COUNT 64 K/MM3 (134-434); PLATELET ESTIMATE DECREASED (NORMAL)
[2017-02-09] MEDS ORDERED: PT OWN MED DRAWER 7, Y5N ONE ×3 (01:09→21:50)
[2017-02-09] MEDS: oxyCODONE HCL 5 MG TABLET PO PRN ×4 (01:15→22:15)
[2017-02-09] MEDS: SUCRALFATE 1 GM TABLET (FP) PO SCH ×3 (01:15→22:17)
[2017-02-09] MEDS: ACETAMINOPHEN 325 MG TABLET (FP) PO PRN ×3 (01:16→13:42)
[2017-02-09] MEDS: INSULIN SLIDING SCALE (NOVOLOG) 1 VIAL SQ SCH ×5 (01:23→22:16)
[2017-02-09 06:06] LABS: SERUM IRON 55 ug/dL (38-169); TOTAL IRON BINDING CAPACITY 240 ug/dL (250-450); UIBC 185 ug/dL (111-343)
[2017-02-09] MEDS: LEVOTHYROXINE NA 75 MCG TABLET (FP) PO SCH (06:40)
[2017-02-09] MEDS: INSULIN DETEMIR 100 UNITS/ML MDV SQ SCH (06:40)
[2017-02-09] MEDS: MIDODRINE HCL 5 MG TABLET PO SCH (09:16)
[2017-02-09] MEDS: AMIODARONE HCL 200 MG TABLET (FP) PO SCH (09:16)
[2017-02-09] MEDS: POLYETHYLENE GLYCOL 3350 119 GM BTL PO SCH ×2 (09:17→22:17)
[2017-02-09 11:03] LABS: ANION GAP 9 (8-16); CALCIUM 8.1 mg/dL (8.5-10.1); CO2 30 mmol/L (21-32); GLUCOSE,RANDOM 240 mg/dL (74-106)
[2017-02-09 11:04] LABS: CREATININE 5.1 mg/dL (0.7-1.3)
--- NOTE | 2017-02-09 14:11 | PN ---
Physical Exam: Nephrology follow up SUBJECTIVE: Patient seen and examined. patient sitting comfortably in bed. Had HD yesterday and got 2 units of blood during HD, Before HD his haemoglobin was 7.4. Denies cheat pain, sob. States that his legs are still swollen. States that he still have dark color foul smelling stool. OBJECTIVE: Vital Signs Period Temp Pulse Resp BP Sys/Lopez Pulse Ox Last 24 Hr 97.9 F-99.0 F 61-81 16-20 94-128/46-72 98 GENERAL: Awake, alert, and fully oriented, HEAD: Normal with no signs of trauma. EYES: Pupils equal, round and reactive to light, EARS, NOSE, THROAT: oropharynx clear without exudates. Moist mucous membranes. LUNGS: Breath sounds equal, clear to auscultation bilaterally. No wheezes, and no crackles. No accessory muscle use. HEART: s1s2 normal. ABDOMEN: Soft, nontender, distended, normoactive bowel sounds, no guarding, no rebound. umbilical hernia, UPPER EXTREMITIES: 2+ pulses, warm, well-perfused. No cyanosis. fistula present in R arm, . LOWER EXTREMITIES: , warm, No calf tenderness. Peripheral edema 1+ Laboratory Results - last 24 hr 02/07/17 02/08/17 02/08/17 14:00 08:05 08:05 WBC RBC Hgb Hct MCV MCH MCHC RDW Plt Count MPV Platelet Estimate Platelet Comment RBC Morphology Sodium Potassium Chloride Carbon Dioxide Anion Gap BUN Creatinine POC Glucometer Random Glucose Calcium Iron 55 TIBC 240 L Iron Saturation 23 Transferrin 203 Hepatitis C Antibody <0.1 02/08/17 02/08/17 02/09/17 16:55 20:45 01:22 WBC 4.3 D RBC 2.65 L Hgb 7.4 L D Hct 22.7 L MCV 85.7 MCH 27.7 MCHC 32.4 RDW 19.4 H Plt Count 64 L D MPV 9.3 Platelet Estimate Decreased Platelet Comment No clumping noted RBC Morphology Sodium Potassium Chloride Carbon Dioxide Anion Gap BUN Creatinine POC Glucometer 178 202 Random Glucose Calcium Iron TIBC Iron Saturation Transferrin Hepatitis C Antibody 02/09/17 02/09/17 02/09/17 06:41 09:25 11:46 WBC RBC Hgb Hct MCV MCH MCHC RDW Plt Count MPV Platelet Estimate Platelet Comment RBC Morphology Sodium 137 Potassium 3.3 L Chloride 98 Carbon Dioxide 30 Anion Gap 9 BUN 51 H D Creatinine 5.1 H D POC Glucometer 248 170 Random Glucose 240 H Calcium 8.1 L Iron TIBC Iron Saturation Transferrin Hepatitis C Antibody Active Medications Generic Name Dose Route Start Last Admin Trade Name Freq PRN Reason Stop Dose Admin Acetaminophen 325 mg 02/07/17 08:35 02/09/17 13:42 Tylenol - PO 325 mg Q6H PRN Administration FEVER OR PAIN Amiodarone HCl 200 mg 02/07/17 10:00 02/09/17 09:16 Cordarone - PO 200 mg DAILY [facility] Administration Insulin Aspart 1 vial 02/08/17 13:00 02/09/17 13:41 Novolog Vial Sliding Scale - SQ Not Given ACHS [facility] Protocol Insulin Detemir 15 units 02/08/17 10:00 02/09/17 06:40 Levemir Vial SQ 15 units ACBK [facility] Administration Levothyroxine Sodium 75 mcg 02/07/17 08:45 02/09/17 06:40 Synthroid - PO 75 mcg DAILY@0700 [facility] Administration Midodrine 10 mg 02/07/17 10:00 02/09/17 09:16 Proamatine - PO 10 mg DAILY [facility] Administration Oxycodone HCl 10 mg 02/07/17 20:51 02/09/17 13:42 Roxicodone - PO 10 mg Q6H PRN Administration Polyethylene Glycol 17 gm 02/07/17 10:00 02/09/17 09:17 Miralax (For Daily Use) - PO 17 gm DAILY [facility] Administration Sodium Polystyrene Sulfonate 15 gm 02/08/17 10:00 02/08/17 10:01 Kayexalate - PO 15 gm Q2D [facility] Administration Sucralfate 1 gm 02/07/17 10:00 02/09/17 09:16 Carafate - PO 1 gm BID [facility] Administration ASSESSMENT/PLAN: CBCD WBC 4.3 K/mm3 (4.0-10.0) D 02/08/17 20:45 RBC 2.65 M/mm3 (4.00-5.60) L 02/08/17 20:45 Hgb 7.4 GM/dL (11.7-16.9) L D 02/08/17 20:45 Hct 22.7 % (35.4-49) L 02/08/17 20:45 MCV 85.7 fl (80-96) 02/08/17 20:45 MCHC 32.4 g/dl (32.0-35.9) 02/08/17 20:45 RDW 19.4 % (11.9-15.9) H 02/08/17 20:45 Plt Count 64 K/MM3 (134-434) L D 02/08/17 20:45 MPV 9.3 fl (7.5-11.1) 02/08/17 20:45 CMP Sodium 137 mmol/L (136-145) 02/09/17 09:25 Potassium 3.3 mmol/L (3.5-5.1) L 02/09/17 09:25 Chloride 98 mmol/L (98-107) 02/09/17 09:25 Carbon Dioxide 30 mmol/L (21-32) 02/09/17 09:25 Anion Gap 9 (8-16) 02/09/17 09:25 BUN 51 mg/dL (7-18) H D 02/09/17 09:25 Creatinine 5.1 mg/dL (0.7-1.3) H D 02/09/17 09:25 Creat Clearance w eGFR 5.13 (>60) 02/06/17 20:17 Random Glucose 240 mg/dL (74-106) H 02/09/17 09:25 Calcium 8.1 mg/dL (8.5-10.1) L 02/09/17 09:25 Total Bilirubin 0.3 mg/dL (0.2-1.0) D 02/06/17 20:17 AST 24 U/L (15-37) D 02/06/17 20:17 ALT 30 U/L (12-78) 02/06/17 20:17 Alkaline Phosphatase 87 U/L (45-117) 02/06/17 20:17 Total Protein 6.2 g/dl (6.4-8.2) L 02/06/17 20:17 Albumin 2.8 g/dl (3.4-5.0) L 02/06/17 20:17 CARDIAC ENZYMES Creatine Kinase Cancelled 02/06/17 19:17 Troponin I Cancelled 02/06/17 19:17 Intake & Output 02/06/17 02/07/17 02/08/1704/17 23:59 23:59 23:59 23:59 Intake Total 350 350 150 0 Balance 350 350 150 0 Weight 77.02 kg 77.836 kg Assessment ESRD (end stage renal disease) on HD ( , , sun ) Anemia Coumadin induced coagulopathy: Supratheraputic INR Coronary artery disease s/p CABG Diabetes mellitus type II HTN (hypertension) Hypothyroidism Atrial fibrillation : on amiodarone and has pace maker Cirrhosis S/P CABG (coronary artery bypass graft) Asthma Vomiting. Plan; Got HD yesterday Monitor INR Monitor Hb and bmp Will do HD tomorrow. Monitor vitals. Monitor for fluid overload. Renal diet. GI consult pending Visit type - Emergency Visit Emergency Visit: Yes ED Registration Date: 02/06/17 Care time: The patient presented to the Emergency Department on the above date and was hospitalized for further evaluation of their emergent condition. - New Patient This patient is new to me today: No - Critical Care Critical Care patient: No
--- NOTE | 2017-02-09 15:52 | PN ---
Progress Note, Physician Chief Complaint: No new complaints - Current Medication List Current Medications: Active Medications Acetaminophen (Tylenol -) 325 mg PO Q6H PRN PRN Reason: FEVER OR PAIN Last Admin: 02/09/17 13:42 Dose: 325 mg Amiodarone HCl (Cordarone -) 200 mg PO DAILY [facility] Last Admin: 02/09/17 09:16 Dose: 200 mg Insulin Aspart (Novolog Vial Sliding Scale -) 1 vial SQ ACHS [facility] PRN Reason: Protocol Last Admin: 02/09/17 13:41 Dose: Not Given Insulin Detemir (Levemir Vial) 15 units SQ ACBK [facility] Last Admin: 02/09/17 06:40 Dose: 15 units Levothyroxine Sodium (Synthroid -) 75 mcg PO DAILY@0700 [facility] Last Admin: 02/09/17 06:40 Dose: 75 mcg Midodrine (Proamatine -) 10 mg PO DAILY [facility] Last Admin: 02/09/17 09:16 Dose: 10 mg Oxycodone HCl (Roxicodone -) 10 mg PO Q6H PRN Last Admin: 02/09/17 13:42 Dose: 10 mg Polyethylene Glycol (Miralax (For Daily Use) -) 17 gm PO DAILY [facility] Last Admin: 02/09/17 09:17 Dose: 17 gm Sodium Polystyrene Sulfonate (Kayexalate -) 15 gm PO Q2D [facility] Last Admin: 02/08/17 10:01 Dose: 15 gm Sucralfate (Carafate -) 1 gm PO BID [facility] Last Admin: 02/09/17 09:16 Dose: 1 gm - Objective Vital Signs: Vital Signs Temperature 98.0 F 02/09/17 14:53 Pulse Rate 63 02/09/17 14:53 Respiratory Rate 18 02/09/17 14:53 Blood Pressure 107/44 02/09/17 14:53 O2 Sat by Pulse Oximetry (%) 98 02/08/17 21:00 Constitutional: Yes: No Distress Neck: Yes: Supple Cardiovascular: Yes: Regular Rate and Rhythm, S1, S2 Respiratory: Yes: Regular, CTA Bilaterally Gastrointestinal: Yes: Normal Bowel Sounds, Soft Neurological: Yes: Alert, Oriented. No: Loss of Sensation ...Motor Strength: WNL Labs: CBC, BMP 02/08/17 20:45 02/09/17 09:25 INR, PTT INR 4.30 (0.82-1.09) H* D 02/08/17 08:05 Problem List - Problems (1) Anemia Assessment/Plan: Stool OB positive, await GI eval. Hb stable Code(s): D64.9 - ANEMIA, UNSPECIFIED Qualifiers: Qualified Code(s): N18.6 - End stage renal disease; D63.1 - Anemia in chronic kidney disease; Z99.2 - Dependence on renal dialysis (2) ESRD (end stage renal disease) Assessment/Plan: HD as per renal Code(s): N18.6 - END STAGE RENAL DISEASE
--- NOTE | 2017-02-09 15:53 | CON.GI ---
Consult Consult Specialty:: Gastroenterology Referred by:: Dr Sutton Reason for Consultation:: Anemia and black stools - History of Present Illness Chief Complaint: Had near syncopal spell with black stools History of Present Illness: 61M diabetic suffered a near syncopal episode with orthostatic symptoms and generalized weakness prior to going for dialysis on 02/06/17. In the ER he was found to have a Hb of 6.4 with INR 8. He also has been having crampy abdominal pain and bloating. He is known to have cirrhosis and ascites felt to be due to cardiac cirrhosis and perhaps GONG. He had an EGD in [address] Bergeron and with [place] 06/23 which revealed no varices or active bleeding sources. Colonoscopy has been advised on several occasions but he never followed up in the office. He denies a FH of GI malignancy. He did vomit on 02/06 but denies coffee grounds or blood. He has severe biventricular failure and on HD for ESRD. 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: Peripheral Neuropathy Cardio/Vascular: Yes: AFIB ([employer] ICD left side), CAD (s/p CABG 2009), CHF ( severe biventricular failure), HTN, Hyperlipdemia, Mitral Insufficiency (mild), Murmur (tricuspid regurgitation), Pulmonary Hypertension Pulmonary: Yes: COPD, Other (h/o MARIAN in lungs-not treated) Gastrointestinal: Yes: GI Bleed, Other (possible portal gastropathy on 06/23 EGD ) Hepatobiliary: Yes: Cirrhosis (felt to be due to right heart failure and GONG ) , Cholelithiasis (s/p lap choly) Renal/: Yes: Renal Failure, Hemodialysis Heme/Onc: Yes: Anemia, Thrombocytopenia Psych: Yes: Anxiety Endocrine: Yes: Diabetes Mellitus (IDDM), Hypothyroidism - Past Surgical History Past Surgical History: Yes: AV Fistula/Graft (LU), CABG (2009), Cholecystectomy (lap choly), Permanent Pacemaker, Upper Endoscopy - Alcohol/Substance Use Hx Alcohol Use: No History of Substance Use: reports: None - Smoking History Smoking history: Never smoked Have you smoked in the past 12 months: No Aproximately how many cigarettes per day: 0 - Social History Usual Living Arrangement: With Spouse ADL: Independent 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 Place of : Other ([place]) History of Recent Travel: No Home Medications - Allergies Allergies/Adverse Reactions: Allergies Allergy/AdvReac Type Severity Reaction Status Date / Time No Known Drug Allergies Allergy Verified 02/06/17 18:11 - Home Medications Home Medications: Ambulatory Orders Sucralfate [Carafate -] 1 gm PO BID 12/19/16 Levothyroxine [Synthroid -] 75 mcg PO DAILY@0700 tablet 12/24/16 Midodrine HCl [Proamatine -] 10 mg PO DAILY tablet 12/24/16 Amiodarone HCl [Cordarone -] 200 mg PO DAILY #30 tablet 12/25/16 Sodium Polystyrene Sulfonate [Kayexalate -] 15 gm PO Q2D #1 bottle 01/25/17 Warfarin Sodium 4 mg PO DAILY #30 tablet 01/25/17 Oxycodone HCl/Acetaminophen [Percocet 5-325 mg Tablet] 1 tab PO Q6H #20 tablet MDD 4 01/31/17 Polyethylene Glycol 3350 [Miralax (For Bowel Prep) -] 17 gm PO DAILY #1 bottle 01/31/17 Insulin Glargine,Hum.rec.anlog [Lantus (nf)] 15 units SQ DAILY 02/08/17 Family Disease History - Family Disease History Family Disease History: Other: Father (lived to 85- natural cause), Mother ( lived to 71- natural cause) Other Family History: No FH of cancer, DM, liver or kidney diseases Review of Systems - Review of Systems Constitutional: reports: Lethargy, Weakness Eyes: reports: Blind Spots HENT: reports: No Symptoms Neck: reports: No Symptoms Cardiovascular: reports: Chest Pain, Palpitations, Shortness of Breath Respiratory: reports: Exercise Intolerance, Snoring, SOB on Exertion Gastrointestinal: reports: Abdominal Pain, Bloating, Melena Musculoskeletal: reports: Joint Pain Neurological: reports: Numbness, Weakness Hematology/Lymphatic: reports: Easily Bruised Psychiatric: reports: Anxiety Physical Exam-GI Vital Signs: Vital Signs Temperature 98.0 F 02/09/17 14:53 Pulse Rate 63 02/09/17 14:53 Respiratory Rate 18 02/09/17 14:53 Blood Pressure 107/44 02/09/17 14:53 O2 Sat by Pulse Oximetry (%) 98 02/08/17 21:00 CBC,CMP WBC 4.3 K/mm3 (4.0-10.0) D 02/08/17 20:45 RBC 2.65 M/mm3 (4.00-5.60) L 02/08/17 20:45 Hgb 7.4 GM/dL (11.7-16.9) L D 02/08/17 20:45 Hct 22.7 % (35.4-49) L 02/08/17 20:45 MCV 85.7 fl (80-96) 02/08/17 20:45 MCH 27.7 pg (25.7-33.7) 02/08/17 20:45 MCHC 32.4 g/dl (32.0-35.9) 02/08/17 20:45 RDW 19.4 % (11.9-15.9) H 02/08/17 20:45 Plt Count 64 K/MM3 (134-434) L D 02/08/17 20:45 MPV 9.3 fl (7.5-11.1) 02/08/17 20:45 Neutrophils % 75.3 % (42.8-82.8) 02/06/17 19:17 Lymphocytes % 9.8 % (8-40) 02/06/17 19:17 Monocytes % 11.2 % (3.8-10.2) H 02/06/17 19:17 Eosinophils % 3.1 % (0-4.5) 02/06/17 19:17 Basophils % 0.6 % (0-2.0) 02/06/17 19:17 Platelet Estimate Decreased (NORMAL) 02/08/17 20:45 Platelet Comment No clumping noted 02/08/17 20:45 RBC Morphology 02/08/17 20:45 Hypochromic-Microcytic 2+ 02/06/17 19:17 Sodium 137 mmol/L (136-145) 02/09/17 09:25 Potassium 3.3 mmol/L (3.5-5.1) L 02/09/17 09:25 Chloride 98 mmol/L (98-107) 02/09/17 09:25 Carbon Dioxide 30 mmol/L (21-32) 02/09/17 09:25 Anion Gap 9 (8-16) 02/09/17 09:25 BUN 51 mg/dL (7-18) H D 02/09/17 09:25 Creatinine 5.1 mg/dL (0.7-1.3) H D 02/09/17 09:25 Creat Clearance w eGFR 5.13 (>60) 02/06/17 20:17 POC Glucometer 170 UNITS (()) 02/09/17 11:46 Random Glucose 240 mg/dL (74-106) H 02/09/17 09:25 Calcium 8.1 mg/dL (8.5-10.1) L 02/09/17 09:25 Iron 55 ug/dL (38-169) 02/08/17 08:05 TIBC 240 ug/dL (250-450) L 02/08/17 08:05 Iron Saturation 23 % (15-55) 02/08/17 08:05 Transferrin 203 mg/dL (200-370) 02/08/17 08:05 Total Bilirubin 0.3 mg/dL (0.2-1.0) D 02/06/17 20:17 AST 24 U/L (15-37) D 02/06/17 20:17 ALT 30 U/L (12-78) 02/06/17 20:17 Alkaline Phosphatase 87 U/L (45-117) 02/06/17 20:17 Creatine Kinase Cancelled 02/06/17 19:17 Troponin I Cancelled 02/06/17 19:17 Total Protein 6.2 g/dl (6.4-8.2) L 02/06/17 20:17 Albumin 2.8 g/dl (3.4-5.0) L 02/06/17 20:17 Current Medications Generic Name Dose Route Start Last Admin Trade Name Freq PRN Reason Stop Dose Admin Acetaminophen 325 mg 02/07/17 08:35 02/09/17 13:42 Tylenol - PO 325 mg Q6H PRN Administration FEVER OR PAIN Amiodarone HCl 200 mg 02/07/17 10:00 02/09/17 09:16 Cordarone - PO 200 mg DAILY [facility] Administration Insulin Aspart 1 vial 02/08/17 13:00 02/09/17 13:41 Novolog Vial Sliding Scale - SQ Not Given ACHS [facility] Protocol Insulin Detemir 15 units 02/08/17 10:00 02/09/17 06:40 Levemir Vial SQ 15 units ACBK [facility] Administration Levothyroxine Sodium 75 mcg 02/07/17 08:45 02/09/17 06:40 Synthroid - PO 75 mcg DAILY@0700 [facility] Administration Midodrine 10 mg 02/07/17 10:00 02/09/17 09:16 Proamatine - PO 10 mg DAILY [facility] Administration Oxycodone HCl 10 mg 02/07/17 20:51 02/09/17 13:42 Roxicodone - PO 10 mg Q6H PRN Administration Polyethylene Glycol 17 gm 02/07/17 10:00 02/09/17 09:17 Miralax (For Daily Use) - PO 17 gm DAILY [facility] Administration Sodium Polystyrene Sulfonate 15 gm 02/08/17 10:00 02/08/17 10:01 Kayexalate - PO 15 gm Q2D [facility] Administration Sucralfate 1 gm 02/07/17 10:00 02/09/17 09:16 Carafate - PO 1 gm BID [facility] Administration Constitutional: Yes: No Distress Eyes: Yes: Conjunctiva Clear HENT: Yes: Atraumatic Neck: Yes: Supple Cardiovascular: Yes: WNL (irregular with left sided PPM), Murmur (2/6 EDUARDO) Respiratory: Yes: CTA Bilaterally Gastrointestinal Inspection: Yes: Distention, Scars (healed lap choly incisions) ...Auscultate: Yes: Normoactive Bowel Sounds ...Palpate: Yes: Soft, Other (nontender) ...Percussion: Yes: Tympanitic ...Rectal Exam: Yes: Guaiac Positive (black melena), Other (2+ prostate) Edema: Yes Labs: CBC, BMP 02/08/17 20:45 02/09/17 09:25 INR, PTT INR 4.30 (0.82-1.09) H* D 02/08/17 08:05 Assessment/Plan Penelope's anemia is due to chronic indolent bleeding with acute episodes arising when his INR is too high. This suggests bleeding from vascular ectasias but he needs a more comprehensive GI evaluation before making this conclusion. He could have bleeding from varices, an underlying malignancy, ischemic colitis and ulcer disease among other possibilities. I have advised an enteroscopy and colonoscopy. I have informed him of the risks of perforation and hemorrhage that could lead to surgery and more transfusions. I have also informed him of the risks of thromboembolic phenomena including a CVA with interruption of his anticoagulation. He has granted informed consents for both. I have discussed the case with Dr Otero. I will consult cardiologically for an endoscopic clearance. I will give Vitamin K given his continued bleeding. Will do both procedures on 02/12 if INR reverses. Continue PPI empirically.
[2017-02-09] MEDS ORDERED: PHYTONADIONE 10 MG/1 ML AMP IVPB ONE (16:21)
--- NOTE | 2017-02-09 18:34 | PN ---
Teaching Attending Note Name of Resident: Harjinder Richard (Nephrology) ATTENDING PHYSICIAN STATEMENT I saw and evaluated the patient. I reviewed the resident's note and discussed the case with the resident. I agree with the resident's findings and plan as documented. Nephrology Pt seen and examined at bedside. He denies shortness of breath. cardio s1s2 pulm rhonchi GI soft ext edema avf with thrill and bruit neuro awake and alert skin neg rash Impression 1. ESRD 2. COPD 3. asthma 4. anemia 5. chol 6. hypotension on midodrine Plan - will arrange for HD in am - GI follow up - monitor hg - monitor INR - will cont epogen - will follow
[2017-02-10 00:06] LABS: HEP B SURFACE AB Non Reactive (.)
[2017-02-10] MEDS: INSULIN DETEMIR 100 UNITS/ML MDV SQ SCH (06:20)
[2017-02-10] MEDS: LEVOTHYROXINE NA 75 MCG TABLET (FP) PO SCH (06:20)
[2017-02-10] MEDS: MIDODRINE HCL 5 MG TABLET PO SCH ×2 (06:20→09:56)
[2017-02-10] MEDS: INSULIN SLIDING SCALE (NOVOLOG) 1 VIAL SQ SCH ×4 (06:21→21:16)
[2017-02-10 08:36] LABS: BASOPHIL 0.9 % (0-2.0); EOSINOPHIL 3.1 % (0-4.5); MCH 28.8 pg (25.7-33.7); MCHC 33.1 g/dl (32.0-35.9); MEAN CELL VOLUME 87.2 fl (80-96); MEAN PLT VOLUME 9.3 fl (7.5-11.1); NEUTROPHILS 72.6 % (42.8-82.8); PLATELET COUNT 75 K/MM3 (134-434); RDW 17.6 % (11.9-15.9); WHITE BLOOD COUNT 5.9 K/mm3 (4.0-10.0)
[2017-02-10 08:46] LABS: INR 1.22 (0.82-1.09); PROTHROMBIN TIME (PATIENT) 13.5 SEC (9.98-11.88)
[2017-02-10 09:04] LABS: ANION GAP 12 (8-16); CALCIUM 7.5 mg/dL (8.5-10.1); CO2 25 mmol/L (21-32); CREATININE 7.3 mg/dL (0.7-1.3); GLUCOSE,RANDOM 202 mg/dL (74-106)
[2017-02-10 09:14] LABS: FIBROSURE ASH COMMENT SEE FILE COPY
[2017-02-10] MEDS: EPOETIN ALFA 2,000 UNITS/1 ML VIAL IVPUSH ONE ×2 (09:48→19:17)
[2017-02-10] MEDS: AMIODARONE HCL 200 MG TABLET (FP) PO SCH ×3 (09:55→14:20)
[2017-02-10] MEDS: POLYETHYLENE GLYCOL 3350 119 GM BTL PO SCH ×3 (09:55→21:17)
[2017-02-10] MEDS: SUCRALFATE 1 GM TABLET (FP) PO SCH ×2 (09:55→21:15)
[2017-02-10] MEDS: SODIUM POLYSTYRENE SULFONATE 15 GM/60 ML BOTTLE PO SCH (09:55)
--- NOTE | 2017-02-10 10:22 | PN ---
Progress Note (short form) - Note Progress Note: He is on hd today much better his hb is improved no distress Vital Signs Period Temp Pulse Resp BP Sys/Lopez Pulse Ox Last 24 Hr 97.7 F-98.8 F 60-72 18-20 96-127/44-78 98 heent nad lungs clear heart no change ext no edema CBC, BMP 02/10/17 08:00 02/10/17 08:00 ap anemia and crf and dm on hd today stable continue to watch
[2017-02-10] MEDS: oxyCODONE HCL 5 MG TABLET PO PRN ×2 (11:37→17:21)
[2017-02-10 11:47] LABS: ALBUMIN 2.8 g/dl (3.4-5.0); ALK PHOS 84 U/L (45-117); BILIRUBIN,TOTAL 0.5 mg/dL (0.2-1.0); SGOT/AST 19 U/L (15-37); SGPT/ALT 31 U/L (12-78); TOT PROT 6.2 g/dl (6.4-8.2)
[2017-02-10 11:48] LABS: FERRITIN 420.887 ng/ml (16.4-293.9)
--- NOTE | 2017-02-10 12:04 | CON.CARD ---
Consult Consult Specialty:: Cardiology Referred by:: Dr. Sutton Reason for Consultation:: Cardiac evaluation and cardiac clearance - History of Present Illness Chief Complaint: Generalized weakness History of Present Illness: Patient is a 61 year old male well known to us with underlying history of coronary artery disease, status post PCI.stent, status post coronary artery bypass grafting, angina pectoris, systolic left ventricular dysfunction related to ischemic dilated cardiomyopathy, S/P ICD implantation ([employer]), HTN/ hypertensive cardiovascular disease, diabetes mellitus, hypercholesterolemia, COPD, ESRD on HD who presents with generalize weakness and chest pain. He was transfused with PRBC due to profound anemia and currently awaits further GI work up with enteroscopy and colonoscopy (seen by Dr. Vincent Lee). Cardiology consultation was called for cardiac clearance. He denies chest pain at this time. He denies shortness of breath or palpitations. He was dialyzed this morning. He denies fever or chills. He denies paroxysmal nocturnal dyspnea or orthopnea. He denies headache or lightheadedness. 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: Peripheral Neuropathy Cardio/Vascular: Yes: AFIB, CAD (s/p CABG, PCI/stent), CHF (severe biventricular failure, [employer] ICD), HTN, Hyperlipdemia, Mitral Insufficiency , Murmur, Pulmonary Hypertension Pulmonary: Yes: COPD, Other (h/o MARIAN in lungs-not treated) Gastrointestinal: Yes: GI Bleed, Other (possible portal gastropathy on 06/23 EGD ) Hepatobiliary: Yes: Cirrhosis (felt to be due to right heart failure and GONG ) , Cholelithiasis (s/p lap cholecystectomy) Renal/: Yes: Renal Failure, Hemodialysis Psych: Yes: Anxiety Endocrine: Yes: Diabetes Mellitus, Hypothyroidism - Past Surgical History Past Surgical History: Yes: AV Fistula/Graft (LUE), CABG, Cholecystectomy, Permanent Pacemaker (ICD implant), Upper Endoscopy - Alcohol/Substance Use Hx Alcohol Use: No History of Substance Use: reports: None - Smoking History Smoking history: Never smoked Have you smoked in the past 12 months: No Aproximately how many cigarettes per day: 0 - Social History Usual Living Arrangement: With Spouse ADL: Independent 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 History of Recent Travel: No Home Medications - Allergies Allergies/Adverse Reactions: Allergies Allergy/AdvReac Type Severity Reaction Status Date / Time No Known Drug Allergies Allergy Verified 02/06/17 18:11 - Home Medications Home Medications: Ambulatory Orders Sucralfate [Carafate -] 1 gm PO BID 12/19/16 Levothyroxine [Synthroid -] 75 mcg PO DAILY@0700 tablet 12/24/16 Midodrine HCl [Proamatine -] 10 mg PO DAILY tablet 12/24/16 Amiodarone HCl [Cordarone -] 200 mg PO DAILY #30 tablet 12/25/16 Sodium Polystyrene Sulfonate [Kayexalate -] 15 gm PO Q2D #1 bottle 01/25/17 Warfarin Sodium 4 mg PO DAILY #30 tablet 01/25/17 Oxycodone HCl/Acetaminophen [Percocet 5-325 mg Tablet] 1 tab PO Q6H #20 tablet MDD 4 01/31/17 Polyethylene Glycol 3350 [Miralax (For Bowel Prep) -] 17 gm PO DAILY #1 bottle 01/31/17 Insulin Glargine,Hum.rec.anlog [Lantus (nf)] 15 units SQ DAILY 02/08/17 Family Disease History - Family Disease History Family Disease History: Other: Father (lived to 85- natural cause), Mother ( lived to 71- natural cause) Other Family History: No FH of cancer, DM, liver or kidney diseases Review of Systems - Review of Systems Constitutional: reports: Loss of Appetite, Weakness. denies: Chills, Fever Cardiovascular: reports: Chest Pain. denies: Palpitations, Shortness of Breath Respiratory: denies: Cough, Hemoptysis, Orthopnea, PND, SOB, SOB on Exertion Gastrointestinal: denies: Abdominal Pain, Constipation, Diarrhea, Melena, Nausea , Rectal Bleeding, Vomiting Neurological: reports: Weakness. denies: Dizziness, Headache, Seizure, Syncope Vital Signs: Vital Signs Temperature 98.8 F 02/10/17 07:40 Pulse Rate 80 02/10/17 11:10 Respiratory Rate 18 02/10/17 11:10 Blood Pressure 125/74 02/10/17 11:10 O2 Sat by Pulse Oximetry (%) 98 02/09/17 21:00 Neck: Yes: Supple Respiratory: Yes: Diminished Gastrointestinal: Yes: Normal Bowel Sounds, Soft. No: Tenderness Cardiovascular: Yes: Regular Rate and Rhythm JVD: No Carotid Bruit: No PMI: Non-Displaced Heart Sounds: Yes: S1, S2 Murmur: Yes: Systolic Murmur, Grade 2 Edema: No - Other Data Labs, Other Data: CBC, BMP 02/10/17 08:00 02/10/17 08:00 INR, PTT INR 1.22 (0.82-1.09) H D 02/10/17 08:00 Laboratory Results - last 24 hr 02/06/17 02/07/17 02/09/17 20:17 14:00 11:46 WBC RBC Hgb Hct MCV MCH MCHC RDW Plt Count MPV Neutrophils % Lymphocytes % Monocytes % Eosinophils % Basophils % INR Sodium Potassium Chloride Carbon Dioxide Anion Gap BUN Creatinine POC Glucometer 170 Random Glucose Calcium Ferritin Total Bilirubin GGT AST ALT Alkaline Phosphatase Total Protein Albumin Hep A IgM Ab Confirm Negative Hepatitis A Ab Total Positive H Hep Bs Antigen Negative Hep Bs Antibody Non reactive Hep B Core Total Ab Negative Hepatitis C Antibody <0.1 Blood Type AB POSITIVE Antibody Screen Negative Crossmatch See Detail 02/10/17 02/10/17 02/10/17 08:00 08:00 08:00 WBC 5.9 D RBC 3.52 L D Hgb 10.1 L D Hct 30.7 L D MCV 87.2 MCH 28.8 MCHC 33.1 RDW 17.6 H Plt Count 75 L MPV 9.3 Neutrophils % 72.6 Lymphocytes % 11.1 Monocytes % 12.3 H Eosinophils % 3.1 Basophils % 0.9 INR 1.22 H D Sodium 133 L Potassium 3.9 Chloride 96 L Carbon Dioxide 25 Anion Gap 12 BUN 80 H D Creatinine 7.3 H D POC Glucometer Random Glucose 202 H Calcium 7.5 L Ferritin 420.887 H Total Bilirubin 0.5 D GGT 57 AST 19 D ALT 31 Alkaline Phosphatase 84 Total Protein 6.2 L Albumin 2.8 L Hep A IgM Ab Confirm Hepatitis A Ab Total Hep Bs Antigen Hep Bs Antibody Hep B Core Total Ab Hepatitis C Antibody Blood Type Antibody Screen Crossmatch 02/10/17 02/10/17 08:00 11:33 WBC RBC Hgb Hct MCV MCH MCHC RDW Plt Count MPV Neutrophils % Lymphocytes % Monocytes % Eosinophils % Basophils % INR Sodium Potassium Chloride Carbon Dioxide Anion Gap BUN Creatinine POC Glucometer 130 Random Glucose Calcium Ferritin Total Bilirubin GGT AST ALT Alkaline Phosphatase Total Protein Albumin Hep A IgM Ab Confirm Hepatitis A Ab Total Hep Bs Antigen Hep Bs Antibody Hep B Core Total Ab Hepatitis C Antibody Blood Type AB POSITIVE Antibody Screen Negative Crossmatch Wide complex rhythm - right bundle branch block Imaging - Results Chest X-ray: Report Reviewed (Unremarkable) EKG: Report Reviewed Problem List - Problems (1) Anemia Code(s): D64.9 - ANEMIA, UNSPECIFIED Qualifiers: Anemia type: due to chronic kidney disease Chronic kidney disease stage : on chronic dialysis Qualified Code(s): N18.6 - End stage renal disease ; D63.1 - Anemia in chronic kidney disease; Z99.2 - Dependence on renal dialysis (2) Atrial fibrillation with rapid ventricular response Code(s): I48.91 - UNSPECIFIED ATRIAL FIBRILLATION (3) Coronary artery disease Code(s): I25.10 - ATHSCL HEART DISEASE OF [place] CORONARY ARTERY W/O ANG PCTRS Qualifiers: Coronary Disease-Associated Artery/Lesion type: [place] artery [place] vs. transplanted heart: [place] heart Associated angina: without angina Qualified Code(s): I25.10 - Atherosclerotic heart disease of [place] coronary artery without angina pectoris (4) Demand ischemia Code(s): I24.8 - OTHER FORMS OF ACUTE ISCHEMIC HEART DISEASE (5) Diabetes mellitus Code(s): E11.9 - TYPE 2 DIABETES MELLITUS WITHOUT COMPLICATIONS Qualifiers: Diabetes mellitus type: type 1 Diabetes mellitus complication status: with kidney complications Diabetes mellitus complication detail: with chronic kidney disease Chronic kidney disease stage: on chronic dialysis Qualified Code(s): E10.22 - Type 1 diabetes mellitus with diabetic chronic kidney disease; N18.1 - Chronic kidney disease, stage 1 (6) ESRD (end stage renal disease) Code(s): N18.6 - END STAGE RENAL DISEASE (7) HTN (hypertension) Code(s): I10 - ESSENTIAL (PRIMARY) HYPERTENSION Qualifiers: Hypertension type: essential hypertension Qualified Code(s): I10 - Essential (primary) hypertension (8) Hypothyroidism Code(s): E03.9 - HYPOTHYROIDISM, UNSPECIFIED Qualifiers: Hypothyroidism type: acquired Qualified Code(s): E03.9 - Hypothyroidism, unspecified (9) ICD (implantable cardioverter-defibrillator) discharge Code(s): Z45.02 - ENCNTR FOR ADJUST AND MGMT OF AUTOMATIC IMPLNTBL CARD DEFIB (10) Ischemic dilated cardiomyopathy Code(s): I25.5 - ISCHEMIC CARDIOMYOPATHY (11) S/P coronary artery stent placement Code(s): Z95.5 - PRESENCE OF CORONARY ANGIOPLASTY IMPLANT AND GRAFT (12) Systolic and diastolic CHF, acute on chronic Code(s): I50.43 - ACUTE ON CHRONIC COMBINED SYSTOLIC AND DIASTOLIC HRT FAIL (13) Ventricular tachycardia Code(s): I47.2 - VENTRICULAR TACHYCARDIA (14) S/P CABG (coronary artery bypass graft) Code(s): Z95.1 - PRESENCE OF AORTOCORONARY BYPASS GRAFT (15) Thrombocytopenia Code(s): D69.6 - THROMBOCYTOPENIA, UNSPECIFIED Assessment/Plan 1. Generalized weakness - underlying ESRD on HD 2. Anemia - GI blood loss - await further GI work up 3. Coronary artery disease s/p CABG, PCI/stnet, angina pectoris 4. Ischemic dilated cardiomyopathy s/p ICD implantation 5. Paroxysmal atrial fibrillation [id number] score of 4 on anticoagulation therapy 6. History of syncope referable to sustained ventricular tachycardia/ fibrillation 7. History of hypertension 8. Diabetes mellitus 9. Hypothyroidism 10. Thrombocytopenia PLAN: 1. Continue Amiodarone as tolerated 2. Currently off Warfarin until further instruction - would consider restarting it afterward and monitor INR closely 3. Patient may proceed with GI work up - there appears to be no absolute contraindication in proceeding with GI work up in view of absence of ischemic symptoms, decompensated congestive heart failure or malignant arrhythmia at the moment. May place donut magnet on ICD to deactivate it during procedure and then reactive after procedure by removing the magnet. 4. Monitor H/H closely and transfuse PRBC as needed Further plans are to follow Carrington Woodruff MD
[2017-02-10] MEDS: ACETAMINOPHEN 325 MG TABLET (FP) PO PRN ×2 (17:23→23:53)
[2017-02-10] MEDS ORDERED: PT OWN MED DRAWER 7, Y5N ONE (20:58)
[2017-02-11] MEDS ORDERED: INSULIN (NOVOLOG) ASPART 100 UNITS/ML 10ML VIAL ONE (06:08)
[2017-02-11] MEDS: INSULIN DETEMIR 100 UNITS/ML MDV SQ SCH (06:13)
[2017-02-11] MEDS: INSULIN SLIDING SCALE (NOVOLOG) 1 VIAL SQ SCH ×4 (06:13→21:27)
[2017-02-11] MEDS: POLYETHYLENE GLYCOL 3350 119 GM BTL PO SCH ×3 (06:13→21:25)
[2017-02-11] MEDS: LEVOTHYROXINE NA 75 MCG TABLET (FP) PO SCH (06:14)
[2017-02-11 07:33] LABS: BASOPHIL 0.9 % (0-2.0); EOSINOPHIL 3.1 % (0-4.5); MCH 28.6 pg (25.7-33.7); MEAN CELL VOLUME 89.5 fl (80-96); MEAN PLT VOLUME 9.4 fl (7.5-11.1); PLATELET COUNT 74 K/MM3 (134-434); RDW 17.9 % (11.9-15.9); WHITE BLOOD COUNT 5.5 K/mm3 (4.0-10.0)
[2017-02-11 07:51] LABS: INR 1.14 (0.82-1.09); PROTHROMBIN TIME (PATIENT) 12.6 SEC (9.98-11.88)
[2017-02-11 08:16] LABS: ANION GAP 13 (8-16); CALCIUM 8.1 mg/dL (8.5-10.1); CO2 28 mmol/L (21-32); CREATININE 6.6 mg/dL (0.7-1.3); GLUCOSE,RANDOM 192 mg/dL (74-106)
[2017-02-11] MEDS ORDERED: PEG3350/SOD SULF,BICARB,CL/KCL 4,000 ML SOLN.RECON PO ONE (09:00)
[2017-02-11] MEDS ORDERED: PT OWN MED DRAWER 7, Y5N ONE ×2 (09:02→21:24)
[2017-02-11] MEDS ORDERED: oxyCODONE HCL 5 MG TABLET ONE (09:14)
[2017-02-11] MEDS: ACETAMINOPHEN 325 MG TABLET (FP) PO PRN ×2 (09:16→23:38)
[2017-02-11] MEDS: MIDODRINE HCL 5 MG TABLET PO SCH (09:16)
[2017-02-11] MEDS: SUCRALFATE 1 GM TABLET (FP) PO SCH ×2 (09:16→21:27)
[2017-02-11] MEDS: AMIODARONE HCL 200 MG TABLET (FP) PO SCH (09:16)
[2017-02-11] MEDS: oxyCODONE HCL 5 MG TABLET PO PRN ×2 (09:17→23:36)
--- NOTE | 2017-02-11 12:21 | PN ---
Progress Note, Physician Chief Complaint: Currently being prepped for colonoscopy tomorrow History of Present Illness: Patient was seen and examined. Awake and alert. Chart was reviewed Denies chest pain, SOB or palpitations - Current Medication List Current Medications: Active Medications Acetaminophen (Tylenol -) 325 mg PO Q6H PRN PRN Reason: FEVER OR PAIN Last Admin: 02/11/17 09:16 Dose: 325 mg Amiodarone HCl (Cordarone -) 200 mg PO DAILY [facility] Last Admin: 02/11/17 09:16 Dose: 200 mg Bisacodyl (Dulcolax -) 20 mg PO ONCE ONE Stop: 02/11/17 18:01 Insulin Aspart (Novolog Vial Sliding Scale -) 1 vial SQ ACHS [facility] PRN Reason: Protocol Last Admin: 02/11/17 11:44 Dose: Not Given Insulin Detemir (Levemir Vial) 15 units SQ ACBK [facility] Last Admin: 02/11/17 06:13 Dose: 15 units Levothyroxine Sodium (Synthroid -) 75 mcg PO DAILY@0700 [facility] Last Admin: 02/11/17 06:14 Dose: 75 mcg Midodrine (Proamatine -) 10 mg PO DAILY [facility] Last Admin: 02/11/17 09:16 Dose: 10 mg Oxycodone HCl (Roxicodone -) 10 mg PO Q6H PRN Polyethylene Glycol (Miralax (For Daily Use) -) 17 gm PO TID [facility] Last Admin: 02/11/17 06:13 Dose: 17 gm Sodium Polystyrene Sulfonate (Kayexalate -) 15 gm PO Q2D [facility] Last Admin: 02/10/17 09:55 Dose: Not Given Sucralfate (Carafate -) 1 gm PO BID [facility] Last Admin: 02/11/17 09:16 Dose: 1 gm - Objective Vital Signs: Vital Signs Temperature 98 F 02/11/17 10:00 Pulse Rate 63 02/11/17 10:00 Respiratory Rate 18 02/11/17 10:00 Blood Pressure 101/51 02/11/17 10:00 O2 Sat by Pulse Oximetry (%) 97 02/11/17 09:00 Neck: Yes: Supple Cardiovascular: Yes: Regular Rate and Rhythm, Murmur (SM), S1, S2 Respiratory: Yes: Diminished Gastrointestinal: Yes: Normal Bowel Sounds, Soft. No: Tenderness Edema: No Additional Findings/Remarks: - Review of Systems Constitutional: denies: Loss of Appetite, Weakness. denies: Chills, Fever Cardiovascular: denies: Chest Pain. denies: Palpitations, Shortness of Breath Respiratory: denies: Cough, Hemoptysis, Orthopnea, PND, SOB, SOB on Exertion Gastrointestinal: denies: Abdominal Pain, Constipation, Diarrhea, Melena, Nausea , Rectal Bleeding, Vomiting Neurological: reports: Weakness. denies: Dizziness, Headache, Seizure, Syncope Labs: CBC, BMP 02/11/17 06:10 02/11/17 06:10 INR, PTT INR 1.14 (0.82-1.09) 02/11/17 06:10 Problem List - Problems (1) Anemia Code(s): D64.9 - ANEMIA, UNSPECIFIED Qualifiers: Anemia type: due to chronic kidney disease Chronic kidney disease stage : on chronic dialysis Qualified Code(s): N18.6 - End stage renal disease ; D63.1 - Anemia in chronic kidney disease; Z99.2 - Dependence on renal dialysis (2) Atrial fibrillation with rapid ventricular response Code(s): I48.91 - UNSPECIFIED ATRIAL FIBRILLATION (3) Coronary artery disease Code(s): I25.10 - ATHSCL HEART DISEASE OF [place] CORONARY ARTERY W/O ANG PCTRS Qualifiers: Coronary Disease-Associated Artery/Lesion type: [place] artery [place] vs. transplanted heart: [place] heart Associated angina: without angina Qualified Code(s): I25.10 - Atherosclerotic heart disease of [place] coronary artery without angina pectoris (4) Demand ischemia Code(s): I24.8 - OTHER FORMS OF ACUTE ISCHEMIC HEART DISEASE (5) Diabetes mellitus Code(s): E11.9 - TYPE 2 DIABETES MELLITUS WITHOUT COMPLICATIONS Qualifiers: Diabetes mellitus type: type 1 Diabetes mellitus complication status: with kidney complications Diabetes mellitus complication detail: with chronic kidney disease Chronic kidney disease stage: on chronic dialysis Qualified Code(s): E10.22 - Type 1 diabetes mellitus with diabetic chronic kidney disease; N18.1 - Chronic kidney disease, stage 1 (6) ESRD (end stage renal disease) Code(s): N18.6 - END STAGE RENAL DISEASE (7) HTN (hypertension) Code(s): I10 - ESSENTIAL (PRIMARY) HYPERTENSION Qualifiers: Hypertension type: essential hypertension Qualified Code(s): I10 - Essential (primary) hypertension (8) Hypothyroidism Code(s): E03.9 - HYPOTHYROIDISM, UNSPECIFIED Qualifiers: Hypothyroidism type: acquired Qualified Code(s): E03.9 - Hypothyroidism, unspecified (9) ICD (implantable cardioverter-defibrillator) discharge Code(s): Z45.02 - ENCNTR FOR ADJUST AND MGMT OF AUTOMATIC IMPLNTBL CARD DEFIB (10) Ischemic dilated cardiomyopathy Code(s): I25.5 - ISCHEMIC CARDIOMYOPATHY (11) S/P coronary artery stent placement Code(s): Z95.5 - PRESENCE OF CORONARY ANGIOPLASTY IMPLANT AND GRAFT (12) Systolic and diastolic CHF, acute on chronic Code(s): I50.43 - ACUTE ON CHRONIC COMBINED SYSTOLIC AND DIASTOLIC HRT FAIL (13) Ventricular tachycardia Code(s): I47.2 - VENTRICULAR TACHYCARDIA (14) S/P CABG (coronary artery bypass graft) Code(s): Z95.1 - PRESENCE OF AORTOCORONARY BYPASS GRAFT (15) Thrombocytopenia Code(s): D69.6 - THROMBOCYTOPENIA, UNSPECIFIED Assessment/Plan 1. Generalized weakness - underlying ESRD on HD 2. Anemia - GI blood loss - await further GI work up 3. Coronary artery disease s/p CABG, PCI/stnet, angina pectoris 4. Ischemic dilated cardiomyopathy s/p ICD implantation 5. Paroxysmal atrial fibrillation [id number] score of 4 on anticoagulation therapy 6. History of syncope referable to sustained ventricular tachycardia/ fibrillation 7. History of hypertension 8. Diabetes mellitus 9. Hypothyroidism 10. Thrombocytopenia PLAN: 1. Continue Amiodarone as tolerated 2. Currently off Warfarin until further instruction - Restart when cleared 3. Patient may proceed with GI work up - there appears to be no absolute contraindication in proceeding with GI work up in view of absence of ischemic symptoms, decompensated congestive heart failure or malignant arrhythmia at the moment. May place donut magnet on ICD to deactivate it during procedure and then reactive after procedure by removing the magnet. 4. Monitor H/H closely and transfuse PRBC as needed Further plans are to follow Carrington Woodruff MD
[2017-02-11] MEDS ORDERED: BISACODYL 5 MG TABLET.DR (FP) PO ONE (18:00)
--- NOTE | 2017-02-11 18:07 | PN ---
Progress Note (short form) - Note Progress Note: 61 year old man with end stage renal disease admitted with syncope probably secondary to significant anemia. Patient reports passing tarry black stool prior to this admission. He is tentatively scheduled for upper endoscopy and colonoscopy tomorrow. He denies any other complaint. Vitals; Vital Signs (72 hours) 02/08/17 02/08/17 02/08/17 20:40 20:45 21:00 Temperature 98.4 F Pulse Rate 61 69 Respiratory 18 18 Rate Blood Pressure 116/55 122/60 O2 Sat by Pulse 98 Oximetry (%) 02/08/17 02/08/17 02/08/17 21:15 21:45 22:15 Temperature Pulse Rate 81 69 62 Respiratory 18 18 18 Rate Blood Pressure 123/46 118/66 94/56 O2 Sat by Pulse Oximetry (%) 02/08/17 02/08/17 02/08/17 22:45 23:15 23:45 Temperature Pulse Rate 65 66 74 Respiratory 18 18 18 Rate Blood Pressure 128/67 124/47 109/63 O2 Sat by Pulse Oximetry (%) 02/08/17 02/09/17 02/09/17 23:50 00:00 06:00 Temperature 98.4 F 97.9 F Pulse Rate 73 71 76 Respiratory 18 18 20 Rate Blood Pressure 113/62 123/53 115/52 O2 Sat by Pulse Oximetry (%) 02/09/17 02/09/17 02/09/17 09:00 14:53 16:30 Temperature 99.0 F 98.0 F 97.9 F Pulse Rate 75 63 63 Respiratory 18 18 18 Rate Blood Pressure 113/55 107/44 107/49 O2 Sat by Pulse 98 Oximetry (%) 02/09/17 02/09/17 02/10/17 21:00 22:00 06:46 Temperature 98.5 F 97.7 F Pulse Rate 68 62 Respiratory 18 18 20 Rate Blood Pressure 115/52 117/74 O2 Sat by Pulse 98 Oximetry (%) 02/10/17 02/10/17 02/10/17 07:40 07:45 08:15 Temperature 98.8 F Pulse Rate 72 60 68 Respiratory 18 18 18 Rate Blood Pressure 120/60 127/59 121/78 O2 Sat by Pulse Oximetry (%) 08/05/17 08/05/17 08/05/17 08:45 09:00 09:15 Temperature Pulse Rate 66 72 Respiratory 18 18 Rate Blood Pressure 123/77 123/70 O2 Sat by Pulse 95 Oximetry (%) 02/10/17 02/10/17 02/10/17 09:45 10:15 10:45 Temperature Pulse Rate 70 65 61 Respiratory 18 18 18 Rate Blood Pressure 96/65 115/60 120/69 O2 Sat by Pulse Oximetry (%) 02/10/17 02/10/17 02/10/17 11:00 11:10 12:36 Temperature 97.2 F L Pulse Rate 68 80 69 Respiratory 18 18 20 Rate Blood Pressure 128/72 125/74 109/50 O2 Sat by Pulse Oximetry (%) 02/10/17 02/10/17 02/10/17 14:39 17:35 21:00 Temperature 98.2 F 98.3 F Pulse Rate 63 65 Respiratory 16 20 20 Rate Blood Pressure 113/69 114/56 O2 Sat by Pulse 99 Oximetry (%) 02/10/17 02/11/17 02/11/17 22:00 08:18 09:00 Temperature 98.5 F 98.4 F Pulse Rate 64 64 Respiratory 18 20 Rate Blood Pressure 100/48 114/66 O2 Sat by Pulse 97 Oximetry (%) 02/11/17 02/11/17 10:00 14:40 Temperature 98 F 97.9 F Pulse Rate 63 58 L Respiratory 18 16 Rate Blood Pressure 101/51 123/59 O2 Sat by Pulse Oximetry (%) Lungs; Essentially clear to auscultation Heart: S1 S2 regular Abd: Full, soft, positive ascites Ext: 1+ bipedal edema Neuro: Awake and alert. Labs: Laboratory Results - last 24 hr 02/10/17 02/10/17 02/11/17 08:45 21:14 05:57 WBC RBC Hgb Hct MCV MCH MCHC RDW Plt Count MPV Neutrophils % Lymphocytes % Monocytes % Eosinophils % Basophils % INR Sodium Potassium Chloride Carbon Dioxide Anion Gap BUN Creatinine POC Glucometer 213 179 Random Glucose Calcium Tumor Marker AFP 1.7 02/11/17 02/11/17 02/11/17 06:10 06:10 06:10 WBC 5.5 RBC 3.65 L Hgb 10.4 L Hct 32.7 L MCV 89.5 MCH 28.6 MCHC 32.0 RDW 17.9 H Plt Count 74 L MPV 9.4 Neutrophils % 76.0 Lymphocytes % 10.3 Monocytes % 9.7 Eosinophils % 3.1 Basophils % 0.9 INR 1.14 Sodium 136 Potassium 4.4 Chloride 95 L Carbon Dioxide 28 Anion Gap 13 BUN 65 H Creatinine 6.6 H POC Glucometer Random Glucose 192 H Calcium 8.1 L Tumor Marker AFP 02/11/17 02/11/17 11:43 17:08 WBC RBC Hgb Hct MCV MCH MCHC RDW Plt Count MPV Neutrophils % Lymphocytes % Monocytes % Eosinophils % Basophils % INR Sodium Potassium Chloride Carbon Dioxide Anion Gap BUN Creatinine POC Glucometer 186 200 Random Glucose Calcium Tumor Marker AFP A/P: 61 year old man with ESRD admitted with probable GI blood loss and anemia. Patient is tentatively scheduled for EGD and colonoscopy in a.m. Will follow.
[2017-02-12] MEDS: POLYETHYLENE GLYCOL 3350 119 GM BTL PO SCH ×3 (06:11→21:31)
[2017-02-12] MEDS: INSULIN SLIDING SCALE (NOVOLOG) 1 VIAL SQ SCH ×4 (06:13→21:31)
[2017-02-12] MEDS: INSULIN DETEMIR 100 UNITS/ML MDV SQ SCH (06:13)
[2017-02-12] MEDS: LEVOTHYROXINE NA 75 MCG TABLET (FP) PO SCH (06:13)
[2017-02-12] MEDS ORDERED: INSULIN (NOVOLOG) ASPART 100 UNITS/ML 10ML VIAL ONE (06:29)
[2017-02-12] MEDS: ACETAMINOPHEN 325 MG TABLET (FP) PO PRN ×2 (08:06→16:16)
[2017-02-12] MEDS: oxyCODONE HCL 5 MG TABLET PO PRN ×3 (08:07→21:29)
[2017-02-12 08:47] LABS: INR 1.11 (0.82-1.09); PROTHROMBIN TIME (PATIENT) 12.2 SEC (9.98-11.88)
[2017-02-12 09:05] LABS: ANION GAP 13 (8-16); CALCIUM 7.1 mg/dL (8.5-10.1); CO2 30 mmol/L (21-32); GLUCOSE,RANDOM 111 mg/dL (74-106)
[2017-02-12 09:33] LABS: CREATININE 7.8 mg/dL (0.7-1.3)
[2017-02-12] MEDS: SUCRALFATE 1 GM TABLET (FP) PO SCH ×2 (10:11→21:28)
[2017-02-12] MEDS: MIDODRINE HCL 5 MG TABLET PO SCH ×2 (10:11→10:33)
[2017-02-12] MEDS: SODIUM POLYSTYRENE SULFONATE 15 GM/60 ML BOTTLE PO SCH (10:11)
[2017-02-12] MEDS: AMIODARONE HCL 200 MG TABLET (FP) PO SCH (10:30)
[2017-02-12] MEDS ORDERED: ETOMIDATE 20 MG/10 ML AMPUL IVPUSH ONE (11:35)
[2017-02-12] MEDS ORDERED: PROPOFOL 20 ML ONE (11:35)
[2017-02-12] MEDS ORDERED: PHENYLEPHRINE HCL 10 MG/1 ML SINGLE DOSE VIAL ONE (11:36)
--- NOTE | 2017-02-12 12:54 | PN ---
Progress Note (short form) - Note Progress Note: GI Procedure NOte: Please see scanned EGD and colonoscopy reports. No active bleeding encountered. 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 Please refer to Dr. Sanderson for capsule endoscopy on discharge. Can resume Coumadin and iron replacement.
--- NOTE | 2017-02-12 18:10 | PN ---
Progress Note, Physician Chief Complaint: EGD, colonoscopy today - Current Medication List Current Medications: Active Medications Acetaminophen (Tylenol -) 325 mg PO Q6H PRN PRN Reason: FEVER OR PAIN Last Admin: 02/12/17 16:16 Dose: 325 mg Amiodarone HCl (Cordarone -) 200 mg PO DAILY [facility] Last Admin: 02/12/17 10:30 Dose: Not Given Insulin Aspart (Novolog Vial Sliding Scale -) 1 vial SQ ACHS [facility] PRN Reason: Protocol Last Admin: 02/12/17 17:09 Dose: Not Given Insulin Detemir (Levemir Vial) 15 units SQ ACBK [facility] Last Admin: 02/12/17 06:13 Dose: Not Given Levothyroxine Sodium (Synthroid -) 75 mcg PO DAILY@0700 [facility] Last Admin: 02/12/17 06:13 Dose: 75 mcg Midodrine (Proamatine -) 10 mg PO DAILY [facility] Last Admin: 02/12/17 10:33 Dose: 10 mg Oxycodone HCl (Roxicodone -) 10 mg PO Q6H PRN Last Admin: 02/12/17 16:16 Dose: 10 mg Polyethylene Glycol (Miralax (For Daily Use) -) 17 gm PO TID [facility] Last Admin: 02/12/17 13:59 Dose: Not Given Sodium Polystyrene Sulfonate (Kayexalate -) 15 gm PO Q2D [facility] Last Admin: 02/12/17 10:11 Dose: Not Given Sucralfate (Carafate -) 1 gm PO BID [facility] Last Admin: 02/12/17 10:11 Dose: Not Given - Objective Vital Signs: Vital Signs Temperature 97.5 F L 02/12/17 14:35 Pulse Rate 66 02/12/17 14:35 Respiratory Rate 20 02/12/17 14:35 Blood Pressure 109/51 02/12/17 14:35 O2 Sat by Pulse Oximetry (%) 100 02/12/17 15:47 Constitutional: Yes: No Distress Cardiovascular: Yes: Regular Rate and Rhythm, S1, S2 Respiratory: Yes: Regular, CTA Bilaterally Gastrointestinal: Yes: Normal Bowel Sounds, Soft Neurological: Yes: Alert, Oriented. No: Loss of Sensation ...Motor Strength: WNL Labs: CBC, BMP 02/11/17 06:10 02/12/17 07:05 INR, PTT INR 1.11 (0.82-1.09) 02/12/17 07:05 Problem List - Problems (1) Anemia Assessment/Plan: EGD/colon vascular ectasia Code(s): D64.9 - ANEMIA, UNSPECIFIED Qualifiers: Anemia type: due to chronic kidney disease Chronic kidney disease stage : on chronic dialysis Qualified Code(s): N18.6 - End stage renal disease ; D63.1 - Anemia in chronic kidney disease; Z99.2 - Dependence on renal dialysis (2) ESRD (end stage renal disease) Assessment/Plan: HD as per renal Code(s): N18.6 - END STAGE RENAL DISEASE
[2017-02-12] MEDS ORDERED: PT OWN MED DRAWER 7, Y5N ONE (21:03)
[2017-02-12] MEDS: WARFARIN NA 2 MG TABLET (UD) PO SCH (21:28)
--- NOTE | 2017-02-12 21:49 | PN ---
Progress Note (short form) - Note Progress Note: 61 year old man with end stage renal disease admitted with symptomatic anemia. Patient had upper endoscopy and colonoscopy done today. She denies any new complaint. Vitals Vital Signs - 24 hr 02/12/17 02/12/17 02/12/17 06:00 10:00 12:33 Temperature 97.6 F 97.8 F 97.7 F Pulse Rate 56 L 58 L 55 L Respiratory 20 24 18 Rate Blood Pressure 113/43 101/49 118/65 O2 Sat by Pulse 100 Oximetry (%) 02/12/17 02/12/17 02/12/17 12:48 13:03 13:15 Temperature Pulse Rate 52 L 53 L 52 L Respiratory 18 18 18 Rate Blood Pressure 105/60 105/60 113/63 O2 Sat by Pulse 100 100 100 Oximetry (%) 02/12/17 02/12/17 02/12/17 13:38 13:40 14:35 Temperature 97.6 F 97.6 F 97.5 F L Pulse Rate 58 L 98 H 66 Respiratory 24 24 20 Rate Blood Pressure 105/56 105/56 109/51 O2 Sat by Pulse 98 Oximetry (%) 02/12/17 02/12/17 15:47 18:00 Temperature 97.8 F Pulse Rate 56 L Respiratory 20 Rate Blood Pressure 132/61 O2 Sat by Pulse 100 Oximetry (%) Lungs: Good air entry bilat Heart: S1 S2 regular Abd: Obese, soft, positive ascites Ext: 1+ Bipedal edema Access: positive bruit right arm AV fistula Labs Laboratory Results - last 24 hr 02/06/17 02/12/17 02/12/17 20:17 06:12 07:05 INR 1.11 Sodium Potassium Chloride Carbon Dioxide Anion Gap BUN Creatinine POC Glucometer 118 Random Glucose Calcium Blood Type AB POSITIVE Antibody Screen Negative Crossmatch See Detail 02/12/17 02/12/17 02/12/17 07:05 17:07 21:22 INR Sodium 133 L Potassium 3.7 Chloride 90 L Carbon Dioxide 30 Anion Gap 13 BUN 75 H Creatinine 7.8 H* POC Glucometer 166 193 Random Glucose 111 H D Calcium 7.1 L Blood Type Antibody Screen Crossmatch Laboratory Results - last 24 hr 02/06/17 02/12/17 02/12/17 20:17 06:12 07:05 INR 1.11 Sodium Potassium Chloride Carbon Dioxide Anion Gap BUN Creatinine POC Glucometer 118 Random Glucose Calcium Blood Type AB POSITIVE Antibody Screen Negative Crossmatch See Detail 02/12/17 02/12/17 02/12/17 07:05 17:07 21:22 INR Sodium 133 L Potassium 3.7 Chloride 90 L Carbon Dioxide 30 Anion Gap 13 BUN 75 H Creatinine 7.8 H* POC Glucometer 166 193 Random Glucose 111 H D Calcium 7.1 L Blood Type Antibody Screen Crossmatch A/P; 61 year old patient with end stage renal disease and significant ascites. Hemodialysis in a.m for 3.5 hours with UF for i.5 hours targeting 2-3 kg and 2 hours of conventional dialysis. Will repeat dialysis again on Sunday as needed.
[2017-02-13] MEDS: POLYETHYLENE GLYCOL 3350 119 GM BTL PO SCH ×3 (05:59→21:45)
[2017-02-13] MEDS: INSULIN DETEMIR 100 UNITS/ML MDV SQ SCH (06:03)
[2017-02-13] MEDS: INSULIN SLIDING SCALE (NOVOLOG) 1 VIAL SQ SCH ×4 (06:04→21:46)
[2017-02-13] MEDS: LEVOTHYROXINE NA 75 MCG TABLET (FP) PO SCH (06:05)
[2017-02-13] MEDS: MIDODRINE HCL 5 MG TABLET PO SCH (07:30)
[2017-02-13 08:20] LABS: INR 1.15 (0.82-1.09); PROTHROMBIN TIME (PATIENT) 12.7 SEC (9.98-11.88)
[2017-02-13 10:12] LABS: ALPHA 2 MACROGLOBULINS,QN 153 mg/dL (110-276); BILIRUBIN TOTAL 0.5 mg/dL (0.0-1.2); FIBROSIS STAGE F1-F2 (.); GGT= 45 IU/L (0-65); GLUCOSE SERUM 190 mg/dL (65-99); HAPTOGLOBIN= 132 mg/dL (34-200); HEIGHT 66 Inches (.); TRIGLYCERIDES= 174 mg/dL (0-149)
[2017-02-13] MEDS: oxyCODONE HCL 5 MG TABLET PO PRN ×2 (11:39→17:47)
[2017-02-13] MEDS: AMIODARONE HCL 200 MG TABLET (FP) PO SCH (11:40)
[2017-02-13] MEDS: ACETAMINOPHEN 325 MG TABLET (FP) PO PRN ×2 (11:40→17:46)
[2017-02-13] MEDS: SUCRALFATE 1 GM TABLET (FP) PO SCH ×2 (11:41→21:43)
[2017-02-13] MEDS ORDERED: INSULIN (NOVOLOG) ASPART 100 UNITS/ML 10ML VIAL ONE (17:03)
[2017-02-13] MEDS: WARFARIN NA 2 MG TABLET (UD) PO SCH (17:48)
--- NOTE | 2017-02-13 19:00 | PN ---
Progress Note, Physician Chief Complaint: Not in distress History of Present Illness: Patient was seen and examined. Awake and alert. Chart was reviewed Denies chest pain, SOB or palpitations - Current Medication List Current Medications: Active Medications Acetaminophen (Tylenol -) 325 mg PO Q6H PRN PRN Reason: FEVER OR PAIN Last Admin: 02/13/17 17:46 Dose: 325 mg Amiodarone HCl (Cordarone -) 200 mg PO DAILY [facility] Last Admin: 02/13/17 11:40 Dose: 200 mg Insulin Aspart (Novolog Vial Sliding Scale -) 1 vial SQ ACHS [facility] PRN Reason: Protocol Last Admin: 02/13/17 17:07 Dose: 2 units Insulin Detemir (Levemir Vial) 15 units SQ ACBK [facility] Last Admin: 02/13/17 06:03 Dose: 15 units Levothyroxine Sodium (Synthroid -) 75 mcg PO DAILY@0700 [facility] Last Admin: 02/13/17 06:05 Dose: 75 mcg Midodrine (Proamatine -) 10 mg PO DAILY [facility] Last Admin: 02/13/17 07:30 Dose: 10 mg Oxycodone HCl (Roxicodone -) 10 mg PO Q6H PRN Last Admin: 02/13/17 17:47 Dose: 10 mg Polyethylene Glycol (Miralax (For Daily Use) -) 17 gm PO TID [facility] Last Admin: 02/13/17 15:03 Dose: 17 grams Sodium Polystyrene Sulfonate (Kayexalate -) 15 gm PO Q2D [facility] Last Admin: 02/12/17 10:11 Dose: Not Given Sucralfate (Carafate -) 1 gm PO BID [facility] Last Admin: 02/13/17 11:41 Dose: 1 gm Warfarin Sodium (Coumadin -) 4 mg PO DAILY@1800 [facility] Last Admin: 02/13/17 17:48 Dose: 4 mg - Objective Vital Signs: Vital Signs Temperature 98.4 F 02/13/17 14:32 Pulse Rate 67 02/13/17 14:32 Respiratory Rate 16 02/13/17 14:32 Blood Pressure 103/53 02/13/17 14:32 O2 Sat by Pulse Oximetry (%) 92 L 02/12/17 21:00 Neck: Yes: Supple Cardiovascular: Yes: Regular Rate and Rhythm, Murmur (Soft SM), S1, S2 Respiratory: Yes: Diminished Gastrointestinal: Yes: Normal Bowel Sounds, Soft Edema: No Labs: CBC, BMP 02/11/17 06:10 02/12/17 07:05 INR, PTT INR 1.15 (0.82-1.09) H 02/13/17 07:30 Problem List - Problems (1) Anemia Code(s): D64.9 - ANEMIA, UNSPECIFIED Qualifiers: Anemia type: due to chronic kidney disease Chronic kidney disease stage : on chronic dialysis Qualified Code(s): N18.6 - End stage renal disease ; D63.1 - Anemia in chronic kidney disease; Z99.2 - Dependence on renal dialysis (2) Atrial fibrillation with rapid ventricular response Code(s): I48.91 - UNSPECIFIED ATRIAL FIBRILLATION (3) Coronary artery disease Code(s): I25.10 - ATHSCL HEART DISEASE OF [place] CORONARY ARTERY W/O ANG PCTRS Qualifiers: Coronary Disease-Associated Artery/Lesion type: [place] artery [place] vs. transplanted heart: [place] heart Associated angina: without angina Qualified Code(s): I25.10 - Atherosclerotic heart disease of [place] coronary artery without angina pectoris (4) Demand ischemia Code(s): I24.8 - OTHER FORMS OF ACUTE ISCHEMIC HEART DISEASE (5) Diabetes mellitus Code(s): E11.9 - TYPE 2 DIABETES MELLITUS WITHOUT COMPLICATIONS Qualifiers: Diabetes mellitus type: type 1 Diabetes mellitus complication status: with kidney complications Diabetes mellitus complication detail: with chronic kidney disease Chronic kidney disease stage: on chronic dialysis Qualified Code(s): E10.22 - Type 1 diabetes mellitus with diabetic chronic kidney disease; N18.1 - Chronic kidney disease, stage 1 (6) ESRD (end stage renal disease) Code(s): N18.6 - END STAGE RENAL DISEASE (7) HTN (hypertension) Code(s): I10 - ESSENTIAL (PRIMARY) HYPERTENSION Qualifiers: Hypertension type: essential hypertension Qualified Code(s): I10 - Essential (primary) hypertension (8) Hypothyroidism Code(s): E03.9 - HYPOTHYROIDISM, UNSPECIFIED Qualifiers: Hypothyroidism type: acquired Qualified Code(s): E03.9 - Hypothyroidism, unspecified (9) ICD (implantable cardioverter-defibrillator) discharge Code(s): Z45.02 - ENCNTR FOR ADJUST AND MGMT OF AUTOMATIC IMPLNTBL CARD DEFIB (10) Ischemic dilated cardiomyopathy Code(s): I25.5 - ISCHEMIC CARDIOMYOPATHY (11) S/P coronary artery stent placement Code(s): Z95.5 - PRESENCE OF CORONARY ANGIOPLASTY IMPLANT AND GRAFT (12) Systolic and diastolic CHF, acute on chronic Code(s): I50.43 - ACUTE ON CHRONIC COMBINED SYSTOLIC AND DIASTOLIC HRT FAIL (13) Ventricular tachycardia Code(s): I47.2 - VENTRICULAR TACHYCARDIA (14) S/P CABG (coronary artery bypass graft) Code(s): Z95.1 - PRESENCE OF AORTOCORONARY BYPASS GRAFT (15) Thrombocytopenia Code(s): D69.6 - THROMBOCYTOPENIA, UNSPECIFIED Assessment/Plan 1. Generalized weakness - underlying ESRD on HD 2. Anemia - GI blood loss - await further GI work up 3. Coronary artery disease s/p CABG, PCI/stnet, angina pectoris 4. Ischemic dilated cardiomyopathy s/p ICD implantation 5. Paroxysmal atrial fibrillation [id number] score of 4 on anticoagulation therapy 6. History of syncope referable to sustained ventricular tachycardia/ fibrillation 7. History of hypertension 8. Diabetes mellitus 9. Hypothyroidism 10. Thrombocytopenia PLAN: 1. Continue Amiodarone as tolerated 2. Warfarin as per INR 3. Monitor H/H closely and transfuse PRBC as needed 4. HD as per renal Further plans are to follow Carrington Woodruff MD
[2017-02-13] MEDS ORDERED: PT OWN MED DRAWER 7, Y5N ONE (21:29)
--- NOTE | 2017-02-13 23:44 | PN ---
Progress Note, Physician Chief Complaint: Feels better - Current Medication List Current Medications: Active Medications Acetaminophen (Tylenol -) 325 mg PO Q6H PRN PRN Reason: FEVER OR PAIN Last Admin: 02/13/17 17:46 Dose: 325 mg Amiodarone HCl (Cordarone -) 200 mg PO DAILY [facility] Last Admin: 02/13/17 11:40 Dose: 200 mg Insulin Aspart (Novolog Vial Sliding Scale -) 1 vial SQ ACHS [facility] PRN Reason: Protocol Last Admin: 02/13/17 21:46 Dose: 2 units Insulin Detemir (Levemir Vial) 15 units SQ ACBK [facility] Last Admin: 02/13/17 06:03 Dose: 15 units Levothyroxine Sodium (Synthroid -) 75 mcg PO DAILY@0700 [facility] Last Admin: 02/13/17 06:05 Dose: 75 mcg Midodrine (Proamatine -) 10 mg PO DAILY [facility] Last Admin: 02/13/17 07:30 Dose: 10 mg Oxycodone HCl (Roxicodone -) 10 mg PO Q6H PRN Last Admin: 02/13/17 17:47 Dose: 10 mg Polyethylene Glycol (Miralax (For Daily Use) -) 17 gm PO TID [facility] Last Admin: 02/13/17 21:45 Dose: 17 grams Sodium Polystyrene Sulfonate (Kayexalate -) 15 gm PO Q2D [facility] Last Admin: 02/12/17 10:11 Dose: Not Given Sucralfate (Carafate -) 1 gm PO BID [facility] Last Admin: 02/13/17 21:43 Dose: 1 gm Warfarin Sodium (Coumadin -) 4 mg PO DAILY@1800 [facility] Last Admin: 02/13/17 17:48 Dose: 4 mg - Objective Vital Signs: Vital Signs Temperature 98.4 F 02/13/17 18:00 Pulse Rate 63 02/13/17 18:00 Respiratory Rate 18 02/13/17 18:00 Blood Pressure 107/70 02/13/17 18:00 O2 Sat by Pulse Oximetry (%) 92 L 02/12/17 21:00 Constitutional: Yes: No Distress Neck: Yes: Supple Cardiovascular: Yes: Regular Rate and Rhythm, S1, S2 Respiratory: Yes: CTA Bilaterally Gastrointestinal: Yes: Normal Bowel Sounds, Soft Neurological: Yes: Alert, Oriented. No: Loss of Sensation ...Motor Strength: WNL Labs: CBC, BMP 02/11/17 06:10 02/12/17 07:05 INR, PTT INR 1.15 (0.82-1.09) H 02/13/17 07:30 Problem List - Problems (1) Anemia Assessment/Plan: EGD/colon vascular ectasia Code(s): D64.9 - ANEMIA, UNSPECIFIED Qualifiers: Anemia type: due to chronic kidney disease Chronic kidney disease stage : on chronic dialysis Qualified Code(s): N18.6 - End stage renal disease ; D63.1 - Anemia in chronic kidney disease; Z99.2 - Dependence on renal dialysis (2) ESRD (end stage renal disease) Assessment/Plan: HD in AM Code(s): N18.6 - END STAGE RENAL DISEASE
[2017-02-14] MEDS: oxyCODONE HCL 5 MG TABLET PO PRN ×2 (00:10→07:53)
[2017-02-14] MEDS: ACETAMINOPHEN 325 MG TABLET (FP) PO PRN ×2 (00:11→07:54)
[2017-02-14] MEDS: INSULIN DETEMIR 100 UNITS/ML MDV SQ SCH (06:02)
[2017-02-14] MEDS: LEVOTHYROXINE NA 75 MCG TABLET (FP) PO SCH (06:02)
[2017-02-14] MEDS: INSULIN SLIDING SCALE (NOVOLOG) 1 VIAL SQ SCH ×3 (06:02→17:12)
[2017-02-14] MEDS: POLYETHYLENE GLYCOL 3350 119 GM BTL PO SCH ×2 (06:24→16:47)
--- NOTE | 2017-02-14 09:22 | PN ---
Progress Note, Physician Chief Complaint: Not in distress Hemodynamically stable Await HD today History of Present Illness: Patient was seen and examined. Awake and alert. Chart was reviewed Denies chest pain, SOB or palpitations - Current Medication List Current Medications: Active Medications Acetaminophen (Tylenol -) 325 mg PO Q6H PRN PRN Reason: FEVER OR PAIN Last Admin: 02/14/17 07:54 Dose: 325 mg Amiodarone HCl (Cordarone -) 200 mg PO DAILY [facility] Last Admin: 02/13/17 11:40 Dose: 200 mg Insulin Aspart (Novolog Vial Sliding Scale -) 1 vial SQ ACHS [facility] PRN Reason: Protocol Last Admin: 02/14/17 06:02 Dose: Not Given Insulin Detemir (Levemir Vial) 15 units SQ ACBK [facility] Last Admin: 02/14/17 06:02 Dose: 15 units Levothyroxine Sodium (Synthroid -) 75 mcg PO DAILY@0700 [facility] Last Admin: 02/14/17 06:02 Dose: 75 mcg Midodrine (Proamatine -) 10 mg PO DAILY [facility] Last Admin: 02/13/17 07:30 Dose: 10 mg Polyethylene Glycol (Miralax (For Daily Use) -) 17 gm PO TID [facility] Last Admin: 02/14/17 06:24 Dose: 17 grams Sodium Polystyrene Sulfonate (Kayexalate -) 15 gm PO Q2D [facility] Last Admin: 02/12/17 10:11 Dose: Not Given Sucralfate (Carafate -) 1 gm PO BID [facility] Last Admin: 02/13/17 21:43 Dose: 1 gm Warfarin Sodium (Coumadin -) 4 mg PO DAILY@1800 [facility] Last Admin: 02/13/17 17:48 Dose: 4 mg - Objective Vital Signs: Vital Signs Temperature 97.8 F 02/14/17 06:00 Pulse Rate 63 02/14/17 06:00 Respiratory Rate 18 02/14/17 06:00 Blood Pressure 107/70 02/14/17 06:00 O2 Sat by Pulse Oximetry (%) 92 L 02/12/17 21:00 Neck: Yes: Supple Cardiovascular: Yes: Regular Rate and Rhythm, Murmur (Soft SM), S1, S2 Respiratory: Yes: Diminished Gastrointestinal: Yes: Normal Bowel Sounds, Soft, Abdomen, Obese. No: Tenderness Edema: No Problem List - Problems (1) Anemia Code(s): D64.9 - ANEMIA, UNSPECIFIED Qualifiers: Anemia type: due to chronic kidney disease Chronic kidney disease stage : on chronic dialysis Qualified Code(s): N18.6 - End stage renal disease ; D63.1 - Anemia in chronic kidney disease; Z99.2 - Dependence on renal dialysis (2) Atrial fibrillation with rapid ventricular response Code(s): I48.91 - UNSPECIFIED ATRIAL FIBRILLATION (3) Coronary artery disease Code(s): I25.10 - ATHSCL HEART DISEASE OF [place] CORONARY ARTERY W/O ANG PCTRS Qualifiers: Coronary Disease-Associated Artery/Lesion type: [place] artery [place] vs. transplanted heart: [place] heart Associated angina: without angina Qualified Code(s): I25.10 - Atherosclerotic heart disease of [place] coronary artery without angina pectoris (4) Demand ischemia Code(s): I24.8 - OTHER FORMS OF ACUTE ISCHEMIC HEART DISEASE (5) Diabetes mellitus Code(s): E11.9 - TYPE 2 DIABETES MELLITUS WITHOUT COMPLICATIONS Qualifiers: Diabetes mellitus type: type 1 Diabetes mellitus complication status: with kidney complications Diabetes mellitus complication detail: with chronic kidney disease Chronic kidney disease stage: on chronic dialysis Qualified Code(s): E10.22 - Type 1 diabetes mellitus with diabetic chronic kidney disease; N18.1 - Chronic kidney disease, stage 1 (6) ESRD (end stage renal disease) Code(s): N18.6 - END STAGE RENAL DISEASE (7) HTN (hypertension) Code(s): I10 - ESSENTIAL (PRIMARY) HYPERTENSION Qualifiers: Hypertension type: essential hypertension Qualified Code(s): I10 - Essential (primary) hypertension (8) Hypothyroidism Code(s): E03.9 - HYPOTHYROIDISM, UNSPECIFIED Qualifiers: Hypothyroidism type: acquired Qualified Code(s): E03.9 - Hypothyroidism, unspecified (9) ICD (implantable cardioverter-defibrillator) discharge Code(s): Z45.02 - ENCNTR FOR ADJUST AND MGMT OF AUTOMATIC IMPLNTBL CARD DEFIB (10) Ischemic dilated cardiomyopathy Code(s): I25.5 - ISCHEMIC CARDIOMYOPATHY (11) S/P coronary artery stent placement Code(s): Z95.5 - PRESENCE OF CORONARY ANGIOPLASTY IMPLANT AND GRAFT (12) Systolic and diastolic CHF, acute on chronic Code(s): I50.43 - ACUTE ON CHRONIC COMBINED SYSTOLIC AND DIASTOLIC HRT FAIL (13) Ventricular tachycardia Code(s): I47.2 - VENTRICULAR TACHYCARDIA (14) S/P CABG (coronary artery bypass graft) Code(s): Z95.1 - PRESENCE OF AORTOCORONARY BYPASS GRAFT (15) Thrombocytopenia Code(s): D69.6 - THROMBOCYTOPENIA, UNSPECIFIED Assessment/Plan 1. Generalized weakness - underlying ESRD on HD 2. Anemia - GI blood loss - await further GI work up 3. Coronary artery disease s/p CABG, PCI/stnet, angina pectoris 4. Ischemic dilated cardiomyopathy s/p ICD implantation 5. Paroxysmal atrial fibrillation [id number] score of 4 on anticoagulation therapy 6. History of syncope referable to sustained ventricular tachycardia/ fibrillation 7. History of hypertension 8. Diabetes mellitus 9. Hypothyroidism 10. Thrombocytopenia PLAN: 1. Continue Amiodarone as tolerated 2. Warfarin as per INR to keep INR btw 2-3 3. Monitor H/H closely and transfuse PRBC as needed 4. HD as per renal Further plans are to follow Carrington Woodruff MD
[2017-02-14] MEDS: MIDODRINE HCL 5 MG TABLET PO SCH (09:59)
[2017-02-14] MEDS: AMIODARONE HCL 200 MG TABLET (FP) PO SCH (09:59)
[2017-02-14] MEDS: SODIUM POLYSTYRENE SULFONATE 15 GM/60 ML BOTTLE PO SCH (09:59)
[2017-02-14] MEDS: SUCRALFATE 1 GM TABLET (FP) PO SCH (10:20)
[2017-02-14] MEDS ORDERED: PT OWN MED DRAWER 7, Y5N ONE (10:23)
[2017-02-14] MEDS: ALBUMIN HUMAN 25% 12.5 GM/50 ML VIAL IVPB SCH ×4 (12:00→15:51)
[2017-02-14] MEDS ORDERED: EPOETIN ALFA 3,000 UNIT, EPOETIN ALFA 2,000 UNIT IVPUSH ONE (13:30)
[2017-02-14 15:35] VITALS: BP 113/62; PULSE 60; TEMP 98.4
--- NOTE | 2017-02-14 16:33 | DS ---
Physical Examination Vital Signs: Vital Signs Temperature 98.4 F 02/14/17 15:10 Pulse Rate 60 02/14/17 15:10 Respiratory Rate 18 02/14/17 15:10 Blood Pressure 113/62 02/14/17 15:10 O2 Sat by Pulse Oximetry (%) 92 L 02/12/17 21:00 Findings/Remarks: 61 y/o male admitted with anemia and heme positive stool. Seen by GI, endoscopy/ colonoscopy no major findings. GI rec capsule endoscopy on follow up. Constitutional: Yes: No Distress Neck: Yes: Supple Cardiovascular: Yes: Regular Rate and Rhythm, S1, S2 Respiratory: Yes: CTA Bilaterally Gastrointestinal: Yes: Normal Bowel Sounds, Soft Neurological: Yes: Alert, Oriented. No: Loss of Sensation ...Motor Strength: WNL Labs: CBC, BMP 02/11/17 06:10 02/12/17 07:05 Discharge Summary Reason For Visit: ANEMIA Current Active Problems Anemia (Acute) Atrial fibrillation with rapid ventricular response (Acute) Coronary artery disease (Acute) Demand ischemia (Acute) Diabetes mellitus (Acute) ESRD (end stage renal disease) (Acute) HTN (hypertension) (Acute) Hypothyroidism (Acute) ICD (implantable cardioverter-defibrillator) discharge (Acute) Ischemic dilated cardiomyopathy (Acute) Precordial chest pain (Acute) S/P coronary artery stent placement (Acute) Systolic and diastolic CHF, acute on chronic (Acute) Ventricular tachycardia (Acute) Condition: Improved - Instructions Diet, Activity, Other Instructions: Renal diet, activity as tolerated Referrals: Mandeep Sutton MD [Primary Care Provider] - Austin Sanderson MD [Staff Physician] - Disposition: HOME - Home Medications Comprehensive Discharge Medication List: Ambulatory Orders Sucralfate [Carafate -] 1 gm PO BID 12/19/16 Levothyroxine [Synthroid -] 75 mcg PO DAILY@0700 tablet 12/24/16 Midodrine HCl [Proamatine -] 10 mg PO DAILY tablet 12/24/16 Amiodarone HCl [Cordarone -] 200 mg PO DAILY #30 tablet 12/25/16 Sodium Polystyrene Sulfonate [Kayexalate -] 15 gm PO Q2D #1 bottle 01/25/17 Warfarin Sodium 4 mg PO DAILY #30 tablet 01/25/17 Oxycodone HCl/Acetaminophen [Percocet 5-325 mg Tablet] 1 tab PO Q6H #20 tablet MDD 4 01/31/17 Polyethylene Glycol 3350 [Miralax (For Bowel Prep) -] 17 gm PO DAILY #1 bottle 01/31/17 Insulin Glargine,Hum.rec.anlog [Lantus (nf)] 15 units SQ DAILY 02/08/17
[2017-02-14] MEDS ORDERED: oxyCODONE HCL 5 MG TABLET PO ONE (16:35)
[2017-02-14] MEDS ORDERED: ACETAMINOPHEN 325 MG TABLET (FP) PO ONE (16:36)
== END 2017-02-14 19:13 | disposition home or self-care (01) | DRG 291 ==
LOC: JER 18:01 → JERBED 21:32 → J8W 02-07 00:23
PROVIDERS: ADMIT Internal Medicine; ATTEND Internal Medicine
PROC: 30233N1 Transfusion of Nonautologous Red Blood Cells into Peripheral Vein, Percutaneous Approach (ICD-10-PCS; 2017-02-07)
PROC: 5A1D60Z (ICD-10-PCS; 2017-02-07)
PROC: 0DJD8ZZ Inspection of Lower Intestinal Tract, Via Natural or Artificial Opening Endoscopic (ICD-10-PCS; 2017-02-12)
PROC: 0DJ08ZZ Inspection of Upper Intestinal Tract, Via Natural or Artificial Opening Endoscopic (ICD-10-PCS; principal; 2017-02-12 11:00)
DX: I13.2 Hypertensive heart and chronic kidney disease with heart failure and with stage 5 chronic kidney disease, or end stage renal disease (principal); N18.6 End stage renal disease; I50.43 Acute on chronic combined systolic (congestive) and diastolic (congestive) heart failure; D68.32 Hemorrhagic disorder due to extrinsic circulating anticoagulants; I25.10 Atherosclerotic heart disease of native coronary artery without angina pectoris; J44.9 Chronic obstructive pulmonary disease, unspecified; J45.909 Unspecified asthma, uncomplicated; E78.5 Hyperlipidemia, unspecified; D63.1 Anemia in chronic kidney disease; E11.40 Type 2 diabetes mellitus with diabetic neuropathy, unspecified; E03.9 Hypothyroidism, unspecified; K74.69 Other cirrhosis of liver; I08.1 Rheumatic disorders of both mitral and tricuspid valves; I27.2 Other secondary pulmonary hypertension; F41.8 Other specified anxiety disorders; D69.6 Thrombocytopenia, unspecified; I25.5 Ischemic cardiomyopathy; K55.20 Angiodysplasia of colon without hemorrhage; I48.0 Paroxysmal atrial fibrillation; K29.60 Other gastritis without bleeding; T45.515A Adverse effect of anticoagulants, initial encounter; K21.9 Gastro-esophageal reflux disease without esophagitis; E11.22 Type 2 diabetes mellitus with diabetic chronic kidney disease; Z86.73 Personal history of transient ischemic attack (TIA), and cerebral infarction without residual deficits; Z95.1 Presence of aortocoronary bypass graft; Z99.2 Dependence on renal dialysis; Z95.5 Presence of coronary angioplasty implant and graft; Z95.0 Presence of cardiac pacemaker
CPT/HCPCS: 36415; 36430; 71010-TC; 80048; 80053; 82105; 82172; 82247; 82272; 82465; 82728; 82947; 82977; 83010; 83516; 83540; 83550; 83883; 84450; 84460; 84466; 84478; 85025; 85027; 85610; 86704; 86706; 86708; 86803; 86850; 86900; 86901; 86922; 87340; 93005; 93010; 99285-25; J0885; P9038; P9047; P9058

== ENCOUNTER 2017-05-03 01:34 | Inpatient (IN) | payer OTHER ==
--- NOTE | 2017-05-03 02:56 | PDOC ---
History of Present Illness - General Chief Complaint: Pain Stated Complaint: PAIN Time Seen by Provider: 05/03/17 02:56 History Source: Family Exam Limitations: Clinical Condition - History of Present Illness Initial Comments: 05/03/17 03:04 Patient is a 61 y.o. male with a PMH of Afib with RVR (on Coumadin) CAD (s/p stent and CABG), IDDM, Ischemic Dilated Cardiomyopathy, HTN, CHF and ESRD (on HD T, Th, Sat) as well as recent (05/01/17) R AV Fistula placement who presents with AMS and generalized pain. Majority of history obtained from son @ bedside as patient intermittently difficult to arouse. Patient's son states that since his post-operative intervention patient has been c/o of pain and become increasingly difficult to arouse. Patient responsive to sternal rub and states "pain, all over pain" and is unable to provide any other history of present illness. Past History - Past Medical History Allergies/Adverse Reactions: Allergies Allergy/AdvReac Type Severity Reaction Status Date / Time No Known Drug Allergies Allergy Verified 05/03/17 02:39 Home Medications: Ambulatory Orders Sucralfate [Carafate -] 1 gm PO BID 12/19/16 Levothyroxine [Synthroid -] 75 mcg PO DAILY@0700 tablet 12/24/16 Midodrine HCl [Proamatine -] 10 mg PO DAILY tablet 12/24/16 Sodium Polystyrene Sulfonate [Kayexalate -] 15 gm PO Q2D #1 bottle 01/25/17 Warfarin Sodium 4 mg PO DAILY #30 tablet 01/25/17 Polyethylene Glycol 3350 [Miralax (For Bowel Prep) -] 17 gm PO DAILY #1 bottle 01/31/17 Insulin Glargine,Hum.rec.anlog [Lantus (nf)] 15 units SQ DAILY 02/08/17 Amiodarone HCl [Cordarone -] 100 mg PO DAILY 05/01/17 Oxycodone HCl/Acetaminophen [Percocet 5-325 mg Tablet] 1 tab PO Q6H PRN MDD 4 Sevelamer HCl [Renagel] 800 mg PO TID 05/01/17 Anemia: Yes Asthma: Yes (HX BRONCHITIS, COPD) Cancer: No Cardiac Disorders: Yes (S/P open heart SX c/ bypass, stent placement) CVA: Yes (no residual) COPD: No CHF: Yes (CAD-OK) Dementia: No Diabetes: Yes Dialysis: Yes (SUN-Sun) GI Disorders: Yes (reflux) Disorders: Yes (ESRD-DIALYSIS ,,SUN) HTN: Yes Hypercholesterolemia: Yes Liver Disease: No Seizures: No Thyroid Disease: No - Surgical History Abdominal Surgery: Yes Appendectomy: No Cardiac Surgery: Yes (Stent placement, Open heart SX, BYpass SX) Cholecystectomy: Yes (2003) Lung Surgery: No Neurologic Surgery: No Orthopedic Surgery: No - Immunization History Td Vaccination: Yes Immunization Up to Date: Yes - Suicide/Smoking/Psychosocial Hx Smoking Status: No Smoking History: Unknown if ever smoked Years of Tobacco Use: 0 Have you smoked in the past 12 months: No Number of Cigarettes Smoked Daily: 0 Cigars Per Day: 0 Information on smoking cessation initiated: No Hx Alcohol Use: No Drug/Substance Use Hx: No Substance Use Type: None Hx Substance Use Treatment: No Review of Systems - Review of Systems Able to Perform ROS?: No Constitutional: Yes: Chills, Fever *Physical Exam - Vital Signs Last Vital Signs Temp Pulse Resp BP Pulse Ox 97.9 F 52 L 14 109/77 94 L 05/03/17 02:39 05/03/17 02:39 05/03/17 02:39 05/03/17 02:39 05/03/17 02:39 - Physical Exam General Appearance: Yes: Nourished HEENT: positive: DINAH Respiratory/Chest: positive: Other Cardiovascular: positive: S1, S2 Gastrointestinal/Abdominal: positive: Soft Extremity: positive: Other (R AV-Fistula bruit asculatated) Integumentary: positive: Other (L parasternal permacath) Neurologic: positive: Alert (Patient responds to sternal rub with eye opening and c/o "pain" "too much pain"), Respond to painful stimul ED Treatment Course - LABORATORY CBC & Chemistry Diagram: 05/03/17 03:21 05/03/17 03:21 Medical Decision Making - Medical Decision Making 05/03/17 03:36 Patient is a 61 y.o. male who presents with AMS. Initial DDx is broad for infectious vs. cardiac vs. post operative complication PLAN: 1. CT Head w/o contrast 2.CBC, CMP, Troponin 3.Blood Cultures, Lactic Acid 05/03/17 03:47 EKG shows bradycardia (HR 58) with AFib and RBBB (RR' in V1,V2,V3) and poor R wave progression V4-V6. 05/03/17 03:56 K+ 6.3 - no EKG changes however patient ESRD - Insulin/HCO3/Dextrose + Ca Gluconate; Lactic Acid 3.6 - > gentle hydration 500 mL IVNS as patient has h/o CHF; Troponin (+) likely reactive 05/03/17 05:16 CT head negative for acute intracranial process; patient alert, talkative and eventually resting comfortably following Morphine; paged Dr. Sutton for admission 05/03/17 05:35 Discussed case w/ Dr. De Paz - accepts for observation admission, requests Vancomycin (1 gram), Ilia consult for HD *DC/Admit/Observation/Transfer Diagnosis at time of Disposition: Acute hyperkalemia
[2017-05-03 03:32] LABS: BASOPHIL 0.9 % (0-2.0); EOSINOPHIL 0.4 % (0-4.5); MCH 27.7 pg (25.7-33.7); MEAN CELL VOLUME 92.2 fl (80-96); NEUTROPHILS 84.2 % (42.8-82.8); PLATELET COUNT 114 K/MM3 (134-434); RDW 22.1 % (11.9-15.9); WHITE BLOOD COUNT 10.9 K/mm3 (4.0-10.0)
[2017-05-03] MEDS ORDERED: ONDANSETRON 4 MG/2 ML VIAL IVPUSH ONE ×2 (03:47→11:22)
[2017-05-03 03:48] LABS: INR 1.43 (0.82-1.09); PROTHROMBIN TIME (PATIENT) 16.2 SEC (9.98-11.88)
[2017-05-03] MEDS ORDERED: morphine CARPU-JECT 4 MG/1 ML DISP.SYRIN IVPUSH ONE (03:48)
[2017-05-03] MEDS ORDERED: ONDANSETRON 4 MG/2 ML VIAL ONE (03:50)
[2017-05-03] MEDS ORDERED: morphine CARPU-JECT 10 MG/1 ML DISP.SYRIN ONE (03:52)
[2017-05-03 03:59] LABS: ALBUMIN 3.2 g/dl (3.4-5.0); ALK PHOS 111 U/L (45-117); ANION GAP 16 (8-16); BILIRUBIN,TOTAL 1.1 mg/dL (0.2-1.0); CALCIUM 8.2 mg/dL (8.5-10.1); CO2 20 mmol/L (21-32); GLUCOSE,RANDOM 184 mg/dL (74-106); SGOT/AST 83 U/L (15-37); SGPT/ALT 56 U/L (12-78); TOT PROT 7.9 g/dl (6.4-8.2)
[2017-05-03 04:08] LABS: CREATININE 8.1 mg/dL (0.7-1.3)
[2017-05-03 04:09] LABS: TROPONIN I 0.16 ng/ml (0.00-0.05)
[2017-05-03] MEDS ORDERED: INSULIN REGULAR HUMAN 100 UNITS/ML *VIAL IVPUSH ONE (04:10)
[2017-05-03] MEDS ORDERED: SODIUM CHLORIDE 0.9% 1000 ML INFUS.BAG IV ONE ×2 (04:11→04:20)
[2017-05-03] MEDS ORDERED: DEXTROSE 10%-WATER - 1,000 ML IV SCH (04:15)
[2017-05-03] MEDS ORDERED: DEXTROSE 50%-WATER - 25 GM/50 ML VIAL IVPUSH ONE (04:16)
[2017-05-03] MEDS ORDERED: SODIUM BICARBONATE 8.4% 50 MEQ/50 ML DISP.SYRIN IVPUSH ONE (04:17)
[2017-05-03] MEDS ORDERED: CALCIUM GLUCONATE 10% - 1,000 MG/10 ML VIAL IVPUSH ONE (04:19)
[2017-05-03] MEDS ORDERED: SODIUM BICARBONATE 8.4% - 50 ML ONE (04:23)
[2017-05-03] MEDS ORDERED: DEXTROSE 50%-WATER 25 GM/50 ML DISP.SYRIN ONE (04:23)
[2017-05-03] MEDS ORDERED: CALCIUM GLUCONATE 10% - 1,000 MG/10 ML VIAL ONE (04:23)
--- NOTE | 2017-05-03 04:33 | PDOC ---
Attending Attestation - Resident Resident Name: Kat Bales - ED Attending Attestation I have performed the following: I have examined & evaluated the patient, The case was reviewed & discussed with the resident, I agree w/resident's findings & plan, Exceptions are as noted - HPI HPI: 05/03/17 19:36 Pt presents with period of AMS yesterday and today has experience generalized weakness. - Physicial Exam PE: 05/03/17 04:31 Physical Exam General Appearance: Yes: Appropriately Dressed. Apparent Distress No:, Intoxicated HEENT: positive: EOMI, DINAH, Normal ENT Inspection, Normal Voice, TMs Normal, Pharynx Normal. negative: Pale Conjunctivae, Photophobia, Scleral Icterus (R), Scleral Icterus (L) Neck: positive: Trachea midline, Normal Thyroid, Supple. negative: Tender, Rigid, Carotid bruit, Stridor, Lymphadenopathy (R), Lymphadenopathy (L), Thyromegaly Respiratory/Chest: positive: Lungs Clear, Normal Breath Sounds. Perma cath left chest, negative: Chest Tender, Respiratory Distress, Accessory Muscle Use, Labored Respiration, RES, Crackles, Rales, Rhonchi, Stridor, Wheezing, Dullness Cardiovascular: positive: Regular Rhythm, Regular Rate, S1, S2. negative: Edema , JVD, Murmur, Bradycardia, Tachycardia Vascular Pulses: Dorsalis-Pedis (R): 2+, Doralis-Pedis (L): 2+ Gastrointestinal/Abdominal: positive: Normal Bowel Sounds, Flat, Soft. negative : Tender, Organomegaly, Pulsatile Mass, Increased Bowel Sounds, Decreased BS, Distended, Guarding, Rebound, Hernia, Hepatomegaly, Spleenomegaly Lymphatic: negative: Adenopathy, Tenderness Musculoskeletal: positive: Normal Inspection. AF graft right arm. negative: CVA Tenderness, Decreased Range of Motion Extremity: positive: Normal Capillary Refill, Normal Inspection, Normal Range of Motion, Pelvis Stable. negative: Tender, Pedal Edema, Swelling, Erythema Integumentary: positive: Normal Color, Dry, Warm. 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 negative: EOM Palsy, Facial Droop, Sensory Deficit - Medical Decision Making 05/03/17 06:31 Pt admitted. Arrangements made for dialysis later.
[2017-05-03] MEDS ORDERED: VANCOMYCIN 1,000 MG in DEXTROSE 5%-WATER - 250 ML IVPB ONE (05:34)
[2017-05-03] MEDS ORDERED: VANCOMYCIN 1 GRAM (PRE-DOCKED) 250 ML IVPB ONE (05:52)
[2017-05-03] MEDS ORDERED: SODIUM CHLORIDE 0.9% 500 ML INFUS.BAG IV ONE (06:51)
--- NOTE | 2017-05-03 07:39 | PDOC ---
*Physical Exam - Vital Signs Last Vital Signs Temp Pulse Resp BP Pulse Ox 97.9 F 70 20 82/46 99 05/03/17 02:39 05/03/17 06:47 05/03/17 06:47 05/03/17 06:47 05/03/17 06:47 ED Treatment Course - LABORATORY CBC & Chemistry Diagram: 05/03/17 03:21 05/03/17 12:10 - ADDITIONAL ORDERS Additional order review: Laboratory Results 05/03/17 05/03/17 05/03/17 04:18 03:21 03:21 PT with INR INR PTT (Actin FS) Sodium Potassium Chloride Carbon Dioxide Anion Gap BUN Creatinine Creat Clearance w eGFR Random Glucose Lactic Acid 3.6 H* Calcium Total Bilirubin AST ALT Alkaline Phosphatase Creatine Kinase 43 Troponin I 0.16 H D Total Protein Albumin Lipase 208 Blood Type Antibody Screen 05/03/17 05/03/17 05/03/17 03:21 03:21 03:21 PT with INR 16.20 H INR 1.43 H PTT (Actin FS) 37.0 H Sodium 134 L Potassium 6.3 H* D Chloride 98 Carbon Dioxide 20 L D Anion Gap 16 BUN 63 H Creatinine 8.1 H* Creat Clearance w eGFR 6.77 Random Glucose 184 H D Lactic Acid Calcium 8.2 L Total Bilirubin 1.1 H D AST 83 H D ALT 56 D Alkaline Phosphatase 111 D Creatine Kinase Troponin I Total Protein 7.9 D Albumin 3.2 L Lipase Blood Type AB POSITIVE Antibody Screen Negative 05/03/17 03:21 RBC 3.84 L MCV 92.2 MCHC 30.0 L RDW 22.1 H D MPV 10.0 Neutrophils % 84.2 H Lymphocytes % 2.6 L D Monocytes % 11.9 H Eosinophils % 0.4 D Basophils % 0.9 - Medications Given in the ED: ED Medications Discontinued Medications Generic Name Dose Route Start Last Admin Trade Name Freq PRN Reason Stop Dose Admin Calcium Gluconate 1,000 mg 05/03/17 04:19 05/03/17 04:34 Calcium Gluconate 10% - IVPUSH 05/03/17 04:20 1,000 mg ONCE ONE Administration Dextrose 25 gm 05/03/17 04:16 05/03/17 04:33 D50w (Vial) - IVPUSH 05/03/17 04:17 25 gm NOW ONE Administration Vancomycin HCl 1,000 mg/ 250 mls @ 250 mls/hr 05/03/17 05:34 05/03/17 05:59 Dextrose IVPB 05/03/17 06:33 250 mls/hr ONCE ONE Administration Protocol Insulin Human Regular 10 units 05/03/17 04:10 05/03/17 04:33 Novolin R Vial *For Ivpush Or Iv Drip Only* IVPUSH 05/03/17 04:11 10 units ONCE ONE Administration Morphine Sulfate 4 mg 05/03/17 03:48 05/03/17 03:55 Morphine Injection - IVPUSH 05/03/17 03:49 4 mg ONCE ONE Administration Ondansetron HCl 4 mg 05/03/17 03:47 05/03/17 03:55 Zofran Injection IVPUSH 05/03/17 03:48 4 mg ONCE ONE Administration Sodium Bicarbonate 50 meq 05/03/17 04:17 05/03/17 04:33 Sodium Bicarbonate 8.4% - IVPUSH 05/03/17 04:18 50 meq ONCE ONE Administration Sodium Chloride 1,000 ml 05/03/17 04:11 05/03/17 04:39 Normal Saline - IV 05/03/17 04:12 Not Given ONCE ONE Sodium Chloride 500 ml 05/03/17 04:20 05/03/17 04:36 Normal Saline - IV 05/03/17 04:21 500 ml ONCE ONE Administration Sodium Chloride 500 ml 05/03/17 06:51 05/03/17 06:57 Normal Saline - IV 05/03/17 06:52 500 ml ONCE ONE Administration Medical Decision Making - Medical Decision Making 05/03/17 07:38 Patient was signed out to me by night team, Dr. Bales. The patient is a 61M with a PMH of ESRD (TTS) who presented with AMS. Workup in progress. ICU team paged 2/2 hypotension. Orders put in by Dr. Bales. Will monitor closely in the ED. Midodrine 10 ordered. Patient was dialyzed Sunday and will need dialysis today. 05/03/17 11:02 Midodrine was change to dopamine. Most recent BP is 92/42. Will prepare for central line. Consent received. 05/03/17 11:38 Son's # is [phone]. 05/03/17 12:47 I have spoken with Dr. Major who states that the patient is normally hypotensive in 80's/40-50's and he was hypotensive throughout his procedure yesterday and perioperatively. I have discussed these findings with Dr. Fuller and he agrees to downgrading the patient to tele. 05/03/17 18:45 Repeat BP is 77/34. Will page Parul to inform her. 05/03/17 19:[address] Teran who recommends dialysis with close BP monitoring. Spoke with Chichi, nurse spa manager/esthetician, who is calling for an ICU bed. The plan is to get dialysis in the ICU and then reassess BP status. *DC/Admit/Observation/Transfer Diagnosis at time of Disposition: Acute hyperkalemia
[2017-05-03] MEDS: DOPAMINE 400 MG/D5W - 250 ML IVPB SCH (08:00)
[2017-05-03] MEDS ORDERED: MIDODRINE HCL 5 MG TABLET PO ONE ×3 (08:07→17:45)
[2017-05-03] MEDS ORDERED: DOPAMINE 400 MG/D5W - 250 ML IVPB ONE (08:07)
[2017-05-03] MEDS ORDERED: HYDROCORTISONE SOD SUCCINATE 100 MG/2 ML VIAL IVPUSH ONE (08:21)
[2017-05-03] MEDS: LEVOTHYROXINE NA 75 MCG TABLET (FP) PO SCH (08:30)
[2017-05-03] MEDS ORDERED: LEVOTHYROXINE NA 25 MCG TABLET (FP) ONE (08:33)
[2017-05-03] MEDS ORDERED: HYDROCORTISONE SOD SUCCINATE 2 ML ONE (08:33)
[2017-05-03] MEDS: SEVELAMER CARBONATE 800 MG TAB (FP) PO SCH ×3 (09:09→18:03)
--- NOTE | 2017-05-03 09:13 | CON.NEP ---
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 Cardio/Vascular: Yes: AFIB, CAD (s/p CABG, PCI/stent), CHF (severe biventricular failure, Medtronin ICD), HTN, Hyperlipdemia, Mitral Insufficiency , Murmur, Pulmonary Hypertension Pulmonary: Yes: COPD, Other (h/o MARIAN in lungs-not treated) Gastrointestinal: Yes: GI Bleed, Other (possible portal gastropathy on 06/23 EGD ) Hepatobiliary: Yes: Cirrhosis (felt to be due to right heart failure and GONG ) , Cholelithiasis (s/p lap cholecystectomy) Renal/: Yes: Renal Failure, Hemodialysis Psych: Yes: Anxiety Endocrine: Yes: Diabetes Mellitus, Hypothyroidism - Past Surgical History Past Surgical History: Yes: AV Fistula/Graft (LUE), CABG, Cholecystectomy, Permanent Pacemaker (ICD implant), Upper Endoscopy - Alcohol/Substance Use Hx Alcohol Use: No History of Substance Use: reports: None - Smoking History Smoking history: Unknown if ever smoked Have you smoked in the past 12 months: No Aproximately how many cigarettes per day: 0 - Social History Usual Living Arrangement: With Spouse ADL: Independent 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 History of Recent Travel: No Home Medications - Allergies Allergies/Adverse Reactions: Allergies Allergy/AdvReac Type Severity Reaction Status Date / Time No Known Drug Allergies Allergy Verified 05/03/17 02:39 - Home Medications Home Medications: Ambulatory Orders Sucralfate [Carafate -] 1 gm PO BID 12/19/16 Levothyroxine [Synthroid -] 75 mcg PO DAILY@0700 tablet 12/24/16 Midodrine HCl [Proamatine -] 10 mg PO DAILY tablet 12/24/16 Sodium Polystyrene Sulfonate [Kayexalate -] 15 gm PO Q2D #1 bottle 01/25/17 Warfarin Sodium 4 mg PO DAILY #30 tablet 01/25/17 Polyethylene Glycol 3350 [Miralax (For Bowel Prep) -] 17 gm PO DAILY #1 bottle 01/31/17 Insulin Glargine,Hum.rec.anlog [Lantus (nf)] 15 units SQ DAILY 02/08/17 Amiodarone HCl [Cordarone -] 100 mg PO DAILY 05/01/17 Oxycodone HCl/Acetaminophen [Percocet 5-325 mg Tablet] 1 tab PO Q6H PRN MDD 4 Sevelamer HCl [Renagel] 800 mg PO TID 05/01/17 Family Disease History - Family Disease History Family Disease History: Other: Father (lived to 85- natural cause), Mother ( lived to 71- natural cause) Nephrology Consult - Height Height: 5 ft 6 in - Weight Weight: 180 lb - BMI Body Mass Index (BMI): 29.0 - Lab Results Anion Gap: Anion Gap Anion Gap 16 (8-16) 05/03/17 03:21 - Imaging Chest X-ray: Report Reviewed Cat Scan: Report Reviewed - Physical Examination Vital Signs: Vital Signs Temperature 96.6 F L 05/03/17 07:10 Pulse Rate 70 05/03/17 09:00 Respiratory Rate 19 05/03/17 09:00 Blood Pressure 98/53 05/03/17 09:00 O2 Sat by Pulse Oximetry (%) 98 05/03/17 09:00 Neck: Yes: Other (left permcath) Extremities: Yes: Other (rt arm avg pos bruit LE has a dry heel ulcer) Assessment/Plan 61 with a past h/o DM CHF ESRD post avg placement POST op hypotension Cultures sent vanco given Will dialyze today k 6.3 follow cultures
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
[2017-05-03] MEDS ORDERED: MIDODRINE HCL 5 MG TABLET PO SCH (10:00)
--- NOTE | 2017-05-03 10:39 | EKG ---
Test Reason : Blood Pressure : / mmHG Vent. Rate : 058 BPM Atrial Rate : 416 BPM P-R Int : 000 ms QRS Dur : 176 ms QT Int : 492 ms P-R-T Axes : 000 269 256 degrees QTc Int : 482 ms ATRIAL FIBRILLATION WITH SLOW VENTRICULAR RESPONSE WITH A COMPETING JUNCTIONAL PACEMAKER RIGHT BUNDLE BRANCH BLOCK INFERIOR INFARCT , AGE UNDETERMINED ANTEROLATERAL INFARCT , AGE UNDETERMINED ABNORMAL ECG WHEN COMPARED WITH ECG OF 06-FEB-2017 18:49, ATRIAL FIBRILLATION HAS REPLACED WIDE QRS RHYTHM Confirmed by ASHLEY PINTO MD ([id number]) on 05/03/2017 10:39:06 AM Referred By: Confirmed By:ASHLEY PINTO MD
[2017-05-03] MEDS ORDERED: SUCRALFATE 1 GM TABLET (FP) ONE (10:42)
[2017-05-03] MEDS ORDERED: SODIUM POLYSTYRENE SULFONATE 15 GM/60 ML BOTTLE ONE (10:43)
[2017-05-03] MEDS ORDERED: AMIODARONE HCL 200 MG TABLET (FP) ONE (10:43)
[2017-05-03] MEDS: SODIUM POLYSTYRENE SULFONATE 15 GM/60 ML BOTTLE PO SCH (10:54)
[2017-05-03] MEDS: AMIODARONE HCL 200 MG TABLET (FP) PO SCH (10:54)
[2017-05-03] MEDS: SUCRALFATE 1 GM TABLET (FP) PO SCH ×2 (10:54→22:10)
[2017-05-03 11:49] LABS: ANISOCYTOSIS 4+; MACROCYTOSIS 2+; MICROCYTOSIS 2+; POLYCHROMASIA 1+
[2017-05-03 11:55] LABS: OVALOCYTE 1+; TEAR DROP CELLS 3+
[2017-05-03 11:56] LABS: BURR CELLS 1+
[2017-05-03 13:21] LABS: ALBUMIN 2.8 g/dl (3.4-5.0); ALK PHOS 98 U/L (45-117); ANION GAP 19 (8-16); BILIRUBIN,TOTAL 1.5 mg/dL (0.2-1.0); CALCIUM 7.6 mg/dL (8.5-10.1); CO2 19 mmol/L (21-32); CPK 49 IU/L (39-308); SGOT/AST 155 U/L (15-37); SGPT/ALT 93 U/L (12-78)
[2017-05-03 13:24] LABS: CREATININE 7.8 mg/dL (0.7-1.3); GLUCOSE,RANDOM 361 mg/dL (74-106); TROPONIN I 0.84 ng/ml (0.00-0.05)
[2017-05-03] MEDS: INSULIN (NOVOLOG) ASPART 100 UNITS/ML 10ML VIAL SQ SCH (17:30)
--- NOTE | 2017-05-03 17:38 | CONSULT ---
Consult Consult Specialty:: PULM/CCM Referred by:: YULIA Reason for Consultation:: Hypotension - History of Present Illness Chief Complaint: Dizziness / Low BP History of Present Illness: 61 M, well known to me from multiple previous admissions. Afib with RVR on Coumadin, CAD, s/p stent and CABG, IDDM, Ischemic Dilated Cardiomyopathy, HTN, CHF and ESRD on HD (T, Th, Sat). S/P revision of his HD access yesterday. Patient known to have chronic hypotension and is on Midodrine maintenance. SBP were in the 80's yesterday in the perioperative period. He denies CP or SOB. No travel history or sick contacts. No fever or chills. Currently on Dopamine 7.5mg for hemodynamic support. 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: Peripheral Neuropathy Cardio/Vascular: Yes: AFIB, CAD (s/p CABG, PCI/stent), CHF (severe biventricular failure, Medtronin ICD), HTN, Hyperlipdemia, Mitral Insufficiency , Murmur, Pulmonary Hypertension Pulmonary: Yes: COPD, Other (h/o MARIAN in lungs-not treated) Gastrointestinal: Yes: GI Bleed, Other (possible portal gastropathy on 06/23 EGD ) Hepatobiliary: Yes: Cirrhosis (felt to be due to right heart failure and GONG ) , Cholelithiasis (s/p lap cholecystectomy) Renal/: Yes: Renal Failure, Hemodialysis Psych: Yes: Anxiety Endocrine: Yes: Diabetes Mellitus, Hypothyroidism - Past Surgical History Past Surgical History: Yes: AV Fistula/Graft (LUE), CABG, Cholecystectomy, Permanent Pacemaker (ICD implant), Upper Endoscopy - Alcohol/Substance Use Hx Alcohol Use: No History of Substance Use: reports: None - Smoking History Smoking history: Never smoked Have you smoked in the past 12 months: No Aproximately how many cigarettes per day: 0 - Social History Usual Living Arrangement: With Spouse ADL: Independent 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 History of Recent Travel: No Home Medications - Allergies Allergies/Adverse Reactions: Allergies Allergy/AdvReac Type Severity Reaction Status Date / Time No Known Drug Allergies Allergy Verified 05/03/17 02:39 - Home Medications Home Medications: Ambulatory Orders Sucralfate [Carafate -] 1 gm PO BID 12/19/16 Levothyroxine [Synthroid -] 75 mcg PO DAILY@0700 tablet 12/24/16 Midodrine HCl [Proamatine -] 10 mg PO DAILY tablet 12/24/16 Sodium Polystyrene Sulfonate [Kayexalate -] 15 gm PO Q2D #1 bottle 01/25/17 Warfarin Sodium 4 mg PO DAILY #30 tablet 01/25/17 Polyethylene Glycol 3350 [Miralax (For Bowel Prep) -] 17 gm PO DAILY #1 bottle 01/31/17 Insulin Glargine,Hum.rec.anlog [Lantus (nf)] 15 units SQ DAILY 02/08/17 Amiodarone HCl [Cordarone -] 100 mg PO DAILY 05/01/17 Oxycodone HCl/Acetaminophen [Percocet 5-325 mg Tablet] 1 tab PO Q6H PRN MDD 4 Sevelamer HCl [Renagel] 800 mg PO TID 05/01/17 Family Disease History - Family Disease History Family Disease History: Other: Father (lived to 85- natural cause), Mother ( lived to 71- natural cause) Review of Systems - Review of Systems Constitutional: reports: Malaise, Weakness. denies: Chills, Fever, Loss of Appetite, Night Sweats Eyes: reports: No Symptoms HENT: reports: No Symptoms Neck: reports: No Symptoms Cardiovascular: denies: Chest Pain, Shortness of Breath Respiratory: reports: Cough. denies: Hemoptysis, Snoring, SOB, SOB on Exertion , Wheezing Gastrointestinal: reports: No Symptoms Genitourinary: reports: No Symptoms Breasts: reports: No Symptoms Reported Musculoskeletal: reports: Back Pain Integumentary: reports: No Symptoms Neurological: reports: No Symptoms Endocrine: reports: No Symptoms Hematology/Lymphatic: reports: No Symptoms Psychiatric: reports: No Symptoms Physical Exam Vital Signs: Vital Signs Temperature 96.6 F L 05/03/17 07:10 Pulse Rate 70 05/03/17 17:00 Respiratory Rate 19 05/03/17 17:00 Blood Pressure 96/56 05/03/17 17:00 O2 Sat by Pulse Oximetry (%) 99 05/03/17 17:00 Constitutional: Yes: Well Nourished, No Distress Eyes: Yes: Conjunctiva Clear, EOM Intact HENT: Yes: Atraumatic, Normocephalic Neck: Yes: Supple, Trachea Midline Cardiovascular: Yes: Regular Rate and Rhythm Respiratory: Yes: On Nasal O2, Rhonchi. No: Accessory Muscle Use, Rales, Stridor, Tachypnea, Wheezes Gastrointestinal: Yes: WNL ...Rectal Exam: Yes: Deferred Musculoskeletal: Yes: Other (post operative changes RUE) Edema: No Peripheral Pulses WNL: Yes Wound/Incision: Yes: Clean/Dry, Well Approximated, [place] Intact Neurological: Yes: Alert, Oriented ...Motor Strength: WNL Psychiatric: Yes: WNL, Alert, Oriented Labs: CBC, BMP 05/03/17 12:10 Imaging - Results Chest X-ray: Report Reviewed, Image Reviewed Problem List - Problems (1) Atrial fibrillation with rapid ventricular response Code(s): I48.91 - UNSPECIFIED ATRIAL FIBRILLATION (2) Coronary artery disease Code(s): I25.10 - ATHSCL HEART DISEASE OF [place] CORONARY ARTERY W/O ANG PCTRS Qualifiers: Coronary Disease-Associated Artery/Lesion type: [place] artery [place] vs. transplanted heart: [place] heart Associated angina: without angina Qualified Code(s): I25.10 - Atherosclerotic heart disease of [place] coronary artery without angina pectoris; I25.10 - Atherosclerotic heart disease of [place] coronary artery without angina pectoris; I25.10 - Atherosclerotic heart disease of [place] coronary artery without angina pectoris (3) Diabetes mellitus Code(s): E11.9 - TYPE 2 DIABETES MELLITUS WITHOUT COMPLICATIONS Qualifiers: Diabetes mellitus type: type 2 Diabetes mellitus complication status: with kidney complications Diabetes mellitus complication detail: with chronic kidney disease Diabetes mellitus buttermilk drier operator insulin use: with buttermilk drier operator use Chronic kidney disease stage: on chronic dialysis Qualified Code(s): E11.22 - Type 2 diabetes mellitus with diabetic chronic kidney disease ; E11.22 - Type 2 diabetes mellitus with diabetic chronic kidney disease; E11.22 - Type 2 diabetes mellitus with diabetic chronic kidney disease; E11.22 - Type 2 diabetes mellitus with diabetic chronic kidney disease; E11.22 - Type 2 diabetes mellitus with diabetic chronic kidney disease; N18.1 - Chronic kidney disease, stage 1; N18.1 - Chronic kidney disease, stage 1; Z79.4 - superintendent terminal (current) use of insulin; Z79.4 - snf (current) use of insulin; Z79.4 - snf (current) use of insulin; Z79.4 - superintendent terminal (current) use of insulin (4) HTN (hypertension) Code(s): I10 - ESSENTIAL (PRIMARY) HYPERTENSION Qualifiers: Hypertension type: essential hypertension Qualified Code(s): I10 - Essential (primary) hypertension; I10 - Essential (primary) hypertension; I10 - Essential (primary) hypertension (5) Hypothyroidism Code(s): E03.9 - HYPOTHYROIDISM, UNSPECIFIED Qualifiers: Hypothyroidism type: acquired Qualified Code(s): E03.9 - Hypothyroidism, unspecified; E03.9 - Hypothyroidism, unspecified; E03.9 - Hypothyroidism, unspecified (6) ICD (implantable cardioverter-defibrillator) discharge Code(s): Z45.02 - ENCNTR FOR ADJUST AND MGMT OF AUTOMATIC IMPLNTBL CARD DEFIB (7) Atrial fibrillation Code(s): I48.91 - UNSPECIFIED ATRIAL FIBRILLATION Qualifiers: Atrial fibrillation type: persistent Qualified Code(s): I48.1 - Persistent atrial fibrillation; I48.1 - Persistent atrial fibrillation; I48.1 - Persistent atrial fibrillation; I48.1 - Persistent atrial fibrillation (8) Cirrhosis Code(s): K74.60 - UNSPECIFIED CIRRHOSIS OF LIVER Qualifiers: Hepatic cirrhosis type: unspecified hepatic cirrhosis Ascites presence : with ascites Qualified Code(s): K74.60 - Unspecified cirrhosis of liver ; K74.60 - Unspecified cirrhosis of liver; K74.60 - Unspecified cirrhosis of liver (9) Congestive heart failure Code(s): I50.9 - HEART FAILURE, UNSPECIFIED Qualifiers: Congestive heart failure type: systolic Congestive heart failure chronicity: chronic Qualified Code(s): I50.22 - Chronic systolic ( congestive) heart failure; I50.22 - Chronic systolic (congestive) heart failure ; I50.22 - Chronic systolic (congestive) heart failure; I50.22 - Chronic systolic (congestive) heart failure (10) Pleural effusion Code(s): J90 - PLEURAL EFFUSION, NOT ELSEWHERE CLASSIFIED (11) S/P CABG (coronary artery bypass graft) Code(s): Z95.1 - PRESENCE OF AORTOCORONARY BYPASS GRAFT Assessment/Plan Unclear if his hypotension is due to acute infection Patient has no clear source, and his post-operative area looks clean. He has received Vancomycin x 1 Advised to give him his Midodrine Cautious small volume resuscitation Wean Dopamine as the patient has a chronic history of hypotension (could been exacerbated by the stress of surgery yesterday) If he remains on Dopamine, Will need ICU monitoring Dr Fuller Critical care time spent in reviewing chart, evaluating patient and formulating plan - 40 minutes.
[2017-05-03] MEDS ORDERED: INSULIN (NOVOLOG) ASPART 100 UNITS/ML 10ML VIAL ONE (17:41)
[2017-05-03] MEDS ORDERED: SODIUM CHLORIDE 250 ML IV ONE (18:10)
--- NOTE | 2017-05-03 18:26 | PN ---
Progress Note (short form) - Note Progress Note: Patient is POD 1 from placement of AV graft in right arm. Following surgery yesterday he had low but stable BP and oxygen saturations unchanged from preop. He was discharged by anesthesia but became obtunded at home and was brought to ER. He was hypotensive and hypoxic and was treated with pressors. He is now awake and alert with no SOB.He has pain at the operative site. On exam the right arm is warm, wounds are clean and dry. There is a graft pulse. Hgb 10 Imp: Chronic cardiac and pulmonary issues exacerbated by surgery and anesthesia. Improving now. No evidence for bleeding. I will follow in hospital.
[2017-05-03] MEDS: WARFARIN NA 3 MG TABLET PO SCH (18:29)
[2017-05-04 00:32] VITALS: BMI 26.9
[2017-05-04] MEDS: oxyCODONE HCL 5 MG TABLET PO PRN ×3 (02:11→22:29)
[2017-05-04] MEDS: ACETAMINOPHEN 325 MG TABLET (FP) PO PRN ×3 (02:12→22:30)
[2017-05-04] MEDS: LEVOTHYROXINE NA 75 MCG TABLET (FP) PO SCH (06:13)
[2017-05-04] MEDS: INSULIN (NOVOLOG) ASPART 100 UNITS/ML 10ML VIAL SQ SCH ×2 (06:13→17:02)
--- NOTE | 2017-05-04 07:39 | PN ---
Progress Note, Physician Chief Complaint: ID Full note dictated Currently sitting in a chair very comfortable No fever Low dose Dopamine for BP - Current Medication List Current Medications: Active Medications Acetaminophen (Tylenol -) 325 mg PO BID PRN Last Admin: 05/04/17 02:12 Dose: 325 mg Amiodarone HCl (Cordarone -) 100 mg PO DAILY [facility] Last Admin: 05/03/17 10:54 Dose: 100 mg Dopamine HCl/Dextrose (Dopamine 400 Mg/D5w -) 250 mls @ 15.309 mls/hr IVPB TITR RACHEL; 5 MCG/KG/MIN PRN Reason: Protocol Last Titration: 05/03/17 19:10 Dose: 7.5 mcg/kg/min Insulin Aspart (Novolog Vial) 1 units SQ BIDAC [facility] PRN Reason: Protocol Last Admin: 05/04/17 06:13 Dose: Not Given Levothyroxine Sodium (Synthroid -) 75 mcg PO DAILY@0700 [facility] Last Admin: 05/04/17 06:13 Dose: 75 mcg Oxycodone HCl (Roxicodone -) 5 mg PO BID PRN Last Admin: 05/04/17 02:11 Dose: 5 mg Sevelamer Carbonate (Renvela -) 800 mg PO TIDCM [facility] Last Admin: 05/03/17 18:03 Dose: Not Given Sodium Polystyrene Sulfonate (Kayexalate -) 15 gm PO Q2D [facility] Last Admin: 05/03/17 10:54 Dose: 15 gm Sucralfate (Carafate -) 1 gm PO BID [facility] Last Admin: 05/03/17 22:10 Dose: 1 gm Warfarin Sodium (Coumadin -) 3 mg PO DAILY@1800 [facility] Last Admin: 05/03/17 18:29 Dose: Not Given - Objective Vital Signs: Vital Signs Temperature 98 F 05/04/17 06:00 Pulse Rate 72 05/04/17 06:00 Respiratory Rate 22 05/04/17 06:00 Blood Pressure 111/54 05/04/17 06:00 O2 Sat by Pulse Oximetry (%) 100 05/03/17 22:00 Extremities: Yes: Other (Surgical incisions look fine mae) Labs: CBC, BMP 05/03/17 12:10 INR, PTT INR 1.43 (0.82-1.09) H 05/03/17 03:21 Problem List - Problems (1) Atrial fibrillation with rapid ventricular response Code(s): I48.91 - UNSPECIFIED ATRIAL FIBRILLATION (2) Diabetes mellitus Code(s): E11.9 - TYPE 2 DIABETES MELLITUS WITHOUT COMPLICATIONS Qualifiers: Diabetes mellitus type: type 2 Diabetes mellitus complication status: with kidney complications Diabetes mellitus complication detail: with chronic kidney disease Diabetes mellitus snf insulin use: with snf use Chronic kidney disease stage: on chronic dialysis Qualified Code(s): E11.22 - Type 2 diabetes mellitus with diabetic chronic kidney disease ; E11.22 - Type 2 diabetes mellitus with diabetic chronic kidney disease; E11.22 - Type 2 diabetes mellitus with diabetic chronic kidney disease; E11.22 - Type 2 diabetes mellitus with diabetic chronic kidney disease; E11.22 - Type 2 diabetes mellitus with diabetic chronic kidney disease; N18.1 - Chronic kidney disease, stage 1; N18.1 - Chronic kidney disease, stage 1; Z79.4 - predatory animal exterminator (current) use of insulin; Z79.4 - predatory animal exterminator (current) use of insulin; Z79.4 - half-way (current) use of insulin; Z79.4 - predatory animal exterminator (current) use of insulin (3) ESRD (end stage renal disease) Code(s): N18.6 - END STAGE RENAL DISEASE Assessment/Plan Laboratory Tests 05/03/17 03:21 WBC 10.9 H D Plt Count 114 L D Microbiology 05/03/17 03:21 Blood - Peripheral Venous Blood Culture - Preliminary NO GROWTH OBTAINED AFTER 24 HOURS, INCUBATION TO CONTINUE FOR 4 DAYS. 05/03/17 03:21 Blood - Peripheral Venous Blood Culture - Preliminary NO GROWTH OBTAINED AFTER 24 HOURS, INCUBATION TO CONTINUE FOR 4 DAYS. ASsessment Placement of an AVG 05/02 ESRD Became obtunded at home with hyotension post op Day 1 Now appears quite stable albeit on dopamine Plan Was given Vancomycin For now observe only and wait for blood cultures this morning ? positive Teresa LIRA
--- NOTE | 2017-05-04 08:32 | CONS ---
DATE OF CONSULTATION: DATE OF DICTATION: 05/04/2017 INFECTIOUS DISEASE CONSULTATION HISTORY OF PRESENT ILLNESS: This is a 61-year-old male with end-stage renal disease whom I am asked to evaluate for the possibility of sepsis. The patient was seen yesterday by Dr. Steiner, who noted that on May 02 he had undergone placement of an AV graft in his right arm. Following surgery, apparently, he was noted to have a low but stable blood pressure and oxygen saturations which were not changed from preoperative saturations. He was discharged home, but apparently the next day became obtunded and had to be brought back to the emergency room, where he was noted to be hypotensive and hypoxic. He was placed on pressors. He is currently now on low-dose dopamine. At the present time he is alert and awake, with no shortness of breath or chest pain, and no pain at the operative site. Because of the hypotension and hypoxemia, the possibility of sepsis was entertained and on this basis, blood cultures were drawn and he was given vancomycin. I am asked to see him for further evaluation, at which point the patient appears overall asymptomatic. Vital signs on admission, the temperature was 97.9, pulse rate 52, blood pressure dropped to 70/36, respirations 14, and O2 saturation 94%. PAST MEDICAL HISTORY: End-stage renal disease, congestive heart failure, chronic hemodialysis via left PermCath, history of MARIAN in respiratory cultures in 2012, pulmonary hypertension, mitral insufficiency, COPD, GI bleeding, cirrhosis (felt to be due to right heart failure and GONG), prior cholecystectomy, hypothyroidism, diabetes mellitus. MEDICATIONS AT HOME: Synthroid, Coumadin, insulin, amiodarone. ALLERGIES: None known. 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 No history of smoking or prior substance abuse. HIV status unknown. FAMILY HISTORY: Reviewed and noncontributory. REVIEW OF SYSTEMS: Respiratory: No cough, shortness of breath or hemoptysis. Cardiac: History of atrial fibrillation. No chest pain, palpitations or syncope. Gastrointestinal: No abdominal pain, nausea, vomiting, or diarrhea. Genitourinary: End-stage renal disease. No gross hematuria. Neuromuscular: No history of visual changes, muscle pains, seizures, loss of vision. PHYSICAL EXAMINATION: General: He was an alert male sitting in a chair in no acute distress. Vital Signs: Temperature 98, pulse 72, blood pressure 111/54, respirations 22. Neck: Supple, without adenopathy. Lungs: Clear to percussion and auscultation. Heart: S1, S2. Regular rhythm, without an audible murmur. Chest: A PermCath in situ. Abdomen: Positive bowel sounds. Soft, nontender, distended. No localized rebound or guarding. Positive ascites. Extremities: No clubbing, cyanosis or edema. Skin: The operative site with mae. The wounds are clean and dry. There is a graft pulse. DIAGNOSTIC STUDIES: White count 10.9, hemoglobin 10.6; platelets 114,000. BUN 66, creatinine 7.8, lactic acid 3.6. AST 155, bilirubin 1.5, alkaline phosphatase 98. Troponin 0.84. Two sets of blood cultures currently pending, although computer indicates no growth from May 03. ASSESSMENT: A 61-year-old male with multiple comorbidities, including end-stage renal disease and diabetes. He presents with altered mental status, generalized weakness, hypotension and hypoxemia following surgery May 02 for placement of a right upper extremity arteriovenous graft. Presently the patient appears comfortable, with no obvious focus of infection. This may all be related to an anesthesia reaction rather than sepsis, and for now I would be comfortable with just observing him off of antibiotics. He did get a gram of vancomycin, although his body weight is 166 pounds. In any case would await cultures and not initiate any further antibiotic therapy until results of blood cultures available. 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 SANDY BANKS M.D. VERONICA/[id number]
[2017-05-04 08:41] LABS: BASOPHIL 0.7 % (0-2.0); EOSINOPHIL 2.5 % (0-4.5); MCHC 31.3 g/dl (32.0-35.9); MEAN CELL VOLUME 89.4 fl (80-96); MEAN PLT VOLUME 9.7 fl (7.5-11.1); NEUTROPHILS 79.3 % (42.8-82.8); PLATELET COUNT 98 K/MM3 (134-434); RDW 21.5 % (11.9-15.9); WHITE BLOOD COUNT 8.4 K/mm3 (4.0-10.0)
--- NOTE | 2017-05-04 08:50 | PN ---
Progress Note (short form) - Note Progress Note: admitted for hypotension, lethargy and hyperkalemia after fistula placement on dopamine essentially since admission underwent HD last night without problems offers no complaints other than feeling weak Vital Signs Period Temp Pulse Resp BP Sys/Lopez Pulse Ox Last 24 Hr 97 F-98.2 F 60-78 15-24 71-115/40-78 97-100 S1S2 RRR lungs cta, decreased BS at right base ascites, abdominal distension no edema awake, alert oriented x3 Imp hypotension-chronic with ischemic cardiomyopathy sepsis w/up negative so far-blood cultures negative aicd afib esrd dm pvd hypothyroidism cirrhosis/ascited due to chronic systolic heart failure plan dopamine taper HD as per renal resume midodrine warfarin as per inr Problem List - Problems (1) Acute hyperkalemia Code(s): E87.5 - HYPERKALEMIA (2) Coronary artery disease Code(s): I25.10 - ATHSCL HEART DISEASE OF [place] CORONARY ARTERY W/O ANG PCTRS Qualifiers: Coronary Disease-Associated Artery/Lesion type: [place] artery [place] vs. transplanted heart: [place] heart Associated angina: without angina Qualified Code(s): I25.10 - Atherosclerotic heart disease of [place] coronary artery without angina pectoris; I25.10 - Atherosclerotic heart disease of [place] coronary artery without angina pectoris; I25.10 - Atherosclerotic heart disease of [place] coronary artery without angina pectoris (3) HTN (hypertension) Code(s): I10 - ESSENTIAL (PRIMARY) HYPERTENSION Qualifiers: Hypertension type: essential hypertension Qualified Code(s): I10 - Essential (primary) hypertension; I10 - Essential (primary) hypertension; I10 - Essential (primary) hypertension (4) Hypothyroidism Code(s): E03.9 - HYPOTHYROIDISM, UNSPECIFIED Qualifiers: Hypothyroidism type: acquired Qualified Code(s): E03.9 - Hypothyroidism, unspecified; E03.9 - Hypothyroidism, unspecified; E03.9 - Hypothyroidism, unspecified (5) ICD (implantable cardioverter-defibrillator) discharge Code(s): Z45.02 - ENCNTR FOR ADJUST AND MGMT OF AUTOMATIC IMPLNTBL CARD DEFIB (6) Ischemic dilated cardiomyopathy Code(s): I25.5 - ISCHEMIC CARDIOMYOPATHY (7) Diabetes mellitus Code(s): E11.9 - TYPE 2 DIABETES MELLITUS WITHOUT COMPLICATIONS Qualifiers: Diabetes mellitus type: type 2 Diabetes mellitus complication status: with kidney complications Diabetes mellitus complication detail: with chronic kidney disease Diabetes mellitus long-term insulin use: 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 Chronic kidney disease stage: on chronic dialysis Qualified Code(s): E11.22 - Type 2 diabetes mellitus with diabetic chronic kidney disease ; E11.22 - Type 2 diabetes mellitus with diabetic chronic kidney disease; E11.22 - Type 2 diabetes mellitus with diabetic chronic kidney disease; E11.22 - Type 2 diabetes mellitus with diabetic chronic kidney disease; E11.22 - Type 2 diabetes mellitus with diabetic chronic kidney disease; N18.1 - Chronic kidney disease, stage 1; N18.1 - Chronic kidney disease, stage 1; Z79.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
[2017-05-04 08:54] LABS: INR 1.45 (0.82-1.09); PROTHROMBIN TIME (PATIENT) 16.4 SEC (9.98-11.88)
[2017-05-04] MEDS: SEVELAMER CARBONATE 800 MG TAB (FP) PO SCH ×3 (09:03→17:02)
[2017-05-04] MEDS: DOPAMINE 400 MG/D5W - 250 ML IVPB SCH ×2 (09:03→14:06)
[2017-05-04] MEDS: AMIODARONE HCL 200 MG TABLET (FP) PO SCH (09:04)
[2017-05-04 09:05] LABS: ALBUMIN 2.7 g/dl (3.4-5.0); ALK PHOS 90 U/L (45-117); ANION GAP 11 (8-16); BILIRUBIN,TOTAL 0.6 mg/dL (0.2-1.0); CALCIUM 7.5 mg/dL (8.5-10.1); CO2 26 mmol/L (21-32); CREATININE 6.4 mg/dL (0.7-1.3); GLUCOSE,RANDOM 184 mg/dL (74-106); SGOT/AST 78 U/L (15-37); SGPT/ALT 70 U/L (12-78); TOT PROT 6.7 g/dl (6.4-8.2)
[2017-05-04] MEDS ORDERED: PT OWN MED DRAWER 7, Y5N ONE ×2 (09:23→21:07)
[2017-05-04] MEDS: SUCRALFATE 1 GM TABLET (FP) PO SCH ×2 (09:25→21:27)
--- NOTE | 2017-05-04 09:49 | PN ---
Progress Note (short form) - Note Progress Note: RENAL 61 WITH ESRD LVDYSF ADMITTED YESTERDAY WITH HYPOTENSION PLACED ON IV DOPA ON 7 MCG BP 90S WAS DIALYZED LAST LAST NIGHT 1 KG REMOVED LABS NOTED FEELS OK CHECT CLEAR ABD ASCITES EXT NO EDEMA RT ARM AVG LEFT PERMCATH SUGGEST RESUME MIDODRINE TAPER OFF DOPA BASELINE BP 80 INCREASE RENVELA TO 2 TID WITH MEALS NEED FOR SUCRALFATE?? CULTURES NEG SO FAR WILL SENS 1 MORE SET AT HD TODAY
[2017-05-04] MEDS ORDERED: MIDODRINE HCL 5 MG TABLET PO SCH (10:00)
--- NOTE | 2017-05-04 11:34 | PN ---
Teaching Attending Note Name of Resident: Yohana Flaherty ATTENDING PHYSICIAN STATEMENT I saw and evaluated the patient. I reviewed the resident's note and discussed the case with the resident. I agree with the resident's findings and plan as documented. SUBJECTIVE: Patient seen and examined in the ICU. Awake and alert. Remains on Dopamine at 7.5mg. No CP or SOB. Reports chronic dizziness. Intake & Output 05/01/17 05/02/17 05/03/17 05/04/17 23:59 23:59 23:59 23:59 Intake Total 147 Balance 147 Weight 166 lb 14.4 oz 166 lb 14.4 oz Last Vital Signs Temp Pulse Resp BP Pulse Ox 98 F 58 L 22 77/47 100 05/04/17 06:00 05/04/17 11:30 05/04/17 06:00 05/04/17 11:30 05/04/17 11:21 Active Medications Acetaminophen (Tylenol -) 325 mg PO BID PRN Last Admin: 05/04/17 09:25 Dose: 325 mg Amiodarone HCl (Cordarone -) 100 mg PO DAILY [facility] Last Admin: 05/04/17 09:04 Dose: 100 mg Epoetin Chevy (Epogen -) 10,000 units SQ ONCE ONE Stop: 05/04/17 09:51 Dopamine HCl/Dextrose (Dopamine 400 Mg/D5w -) 250 mls @ 15.309 mls/hr IVPB TITR RACHEL; 5 MCG/KG/MIN PRN Reason: Protocol Last Titration: 05/04/17 11:30 Dose: 7.5 mcg/kg/min Insulin Aspart (Novolog Vial) 1 units SQ BIDAC [facility] PRN Reason: Protocol Last Admin: 05/04/17 06:13 Dose: Not Given Levothyroxine Sodium (Synthroid -) 75 mcg PO DAILY@0700 [facility] Last Admin: 05/04/17 06:13 Dose: 75 mcg Midodrine (Proamatine -) 5 mg PO BID [facility] Last Admin: 05/04/17 11:05 Dose: 5 mg Oxycodone HCl (Roxicodone -) 5 mg PO BID PRN Last Admin: 05/04/17 09:24 Dose: 5 mg Sevelamer Carbonate (Renvela -) 800 mg PO TIDCM [facility] Last Admin: 05/04/17 11:07 Dose: 800 mg Sodium Polystyrene Sulfonate (Kayexalate -) 15 gm PO Q2D [facility] Last Admin: 05/03/17 10:54 Dose: 15 gm Sucralfate (Carafate -) 1 gm PO BID [facility] Last Admin: 05/04/17 09:25 Dose: 1 gm Warfarin Sodium (Coumadin -) 3 mg PO DAILY@1800 [facility] Last Admin: 05/03/17 18:29 Dose: Not Given Constitutional: Yes: Well Nourished, No Distress Eyes: Yes: Conjunctiva Clear, EOM Intact HENT: Yes: Atraumatic, Normocephalic Neck: Yes: Supple, Trachea Midline Cardiovascular: Yes: Regular Rate and Rhythm Respiratory: Yes: On Nasal O2, Rhonchi. No: Accessory Muscle Use, Rales, Stridor, Tachypnea, Wheezes Gastrointestinal: Yes: WNL ...Rectal Exam: Yes: Deferred Musculoskeletal: Yes: Other (post operative changes RUE) Edema: No Peripheral Pulses WNL: Yes Wound/Incision: Yes: Clean/Dry, Well Approximated, [place] Intact Neurological: Yes: Alert, Oriented ...Motor Strength: WNL Psychiatric: Yes: WNL, Alert, Oriented Labs: Laboratory Results - last 24 hr 05/03/17 05/03/17 05/03/17 03:21 12:10 12:44 WBC 10.9 H D RBC 3.84 L Hgb 10.6 L Hct 35.4 MCV 92.2 MCH 27.7 MCHC 30.0 L RDW 22.1 H D Plt Count 114 L D MPV 10.0 Neutrophils % 84.2 H Lymphocytes % 2.6 L D Monocytes % 11.9 H Eosinophils % 0.4 D Basophils % 0.9 Polychromasia 1+ Anisocytosis 4+ Microcytosis 2+ Macrocytosis 2+ Tear Drop Cells 3+ Ovalocytes 1+ Bertha Cells 1+ PT with INR INR Sodium 133 L Potassium 5.9 H Chloride 95 L Carbon Dioxide 19 L Anion Gap 19 H BUN 66 H Creatinine 7.8 H* Creat Clearance w eGFR 7.07 POC Glucometer [phone] Random Glucose 361 H* D Calcium 7.6 L Total Bilirubin 1.5 H D AST 155 H D ALT 93 H D Alkaline Phosphatase 98 Creatine Kinase 49 Troponin I 0.84 H* D Total Protein 7.0 Albumin 2.8 L Hepatitis C Antibody 05/03/17 05/03/17 05/04/17 14:20 17:32 08:00 WBC 8.4 RBC 3.46 L Hgb 9.7 L Hct 30.9 L MCV 89.4 MCH 28.0 MCHC 31.3 L RDW 21.5 H Plt Count 98 L MPV 9.7 Neutrophils % 79.3 Lymphocytes % 6.3 L D Monocytes % 11.2 H Eosinophils % 2.5 D Basophils % 0.7 Polychromasia Anisocytosis Microcytosis Macrocytosis Tear Drop Cells Ovalocytes Bertha Cells PT with INR INR Sodium Potassium Chloride Carbon Dioxide Anion Gap BUN Creatinine Creat Clearance w eGFR POC Glucometer [phone] Random Glucose Calcium Total Bilirubin AST ALT Alkaline Phosphatase Creatine Kinase Troponin I Total Protein Albumin Hepatitis C Antibody 0.1 05/04/17 05/04/17 08:00 08:00 WBC RBC Hgb Hct MCV MCH MCHC RDW Plt Count MPV Neutrophils % Lymphocytes % Monocytes % Eosinophils % Basophils % Polychromasia Anisocytosis Microcytosis Macrocytosis Tear Drop Cells Ovalocytes Bertha Cells PT with INR 16.40 H INR 1.45 H Sodium 135 L Potassium 4.7 D Chloride 98 Carbon Dioxide 26 D Anion Gap 11 BUN 55 H Creatinine 6.4 H Creat Clearance w eGFR 8.89 POC Glucometer Random Glucose 184 H D Calcium 7.5 L Total Bilirubin 0.6 D AST 78 H D ALT 70 D Alkaline Phosphatase 90 Creatine Kinase Troponin I Total Protein 6.7 Albumin 2.7 L Hepatitis C Antibody Problem List - Problems (1) Atrial fibrillation with rapid ventricular response Code(s): I48.91 - UNSPECIFIED ATRIAL FIBRILLATION (2) Coronary artery disease Code(s): I25.10 - ATHSCL HEART DISEASE OF [place] CORONARY ARTERY W/O ANG PCTRS Qualifiers: Coronary Disease-Associated Artery/Lesion type: [place] artery [place] vs. transplanted heart: [place] heart Associated angina: without angina Qualified Code(s): I25.10 - Atherosclerotic heart disease of [place] coronary artery without angina pectoris; I25.10 - Atherosclerotic heart disease of [place] coronary artery without angina pectoris; I25.10 - Atherosclerotic heart disease of [place] coronary artery without angina pectoris (3) Diabetes mellitus Code(s): E11.9 - TYPE 2 DIABETES MELLITUS WITHOUT COMPLICATIONS Qualifiers: Diabetes mellitus type: type 2 Diabetes mellitus complication status: with kidney complications Diabetes mellitus complication detail: with chronic kidney disease Diabetes mellitus terminal computer operator insulin use: with terminal computer operator use Chronic kidney disease stage: on chronic dialysis Qualified Code(s): E11.22 - Type 2 diabetes mellitus with diabetic chronic kidney disease ; E11.22 - Type 2 diabetes mellitus with diabetic chronic kidney disease; E11.22 - Type 2 diabetes mellitus with diabetic chronic kidney disease; E11.22 - Type 2 diabetes mellitus with diabetic chronic kidney disease; E11.22 - Type 2 diabetes mellitus with diabetic chronic kidney disease; N18.1 - Chronic kidney disease, stage 1; N18.1 - Chronic kidney disease, stage 1; Z79.4 - half-way (current) use of insulin; Z79.4 - half-way (current) use of insulin; Z79.4 - half-way (current) use of insulin; Z79.4 - 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 (4) HTN (hypertension) Code(s): I10 - ESSENTIAL (PRIMARY) HYPERTENSION Qualifiers: Hypertension type: essential hypertension Qualified Code(s): I10 - Essential (primary) hypertension; I10 - Essential (primary) hypertension; I10 - Essential (primary) hypertension (5) Hypothyroidism Code(s): E03.9 - HYPOTHYROIDISM, UNSPECIFIED Qualifiers: Hypothyroidism type: acquired Qualified Code(s): E03.9 - Hypothyroidism, unspecified; E03.9 - Hypothyroidism, unspecified; E03.9 - Hypothyroidism, unspecified (6) ICD (implantable cardioverter-defibrillator) discharge Code(s): Z45.02 - ENCNTR FOR ADJUST AND MGMT OF AUTOMATIC IMPLNTBL CARD DEFIB (7) Atrial fibrillation Code(s): I48.91 - UNSPECIFIED ATRIAL FIBRILLATION Qualifiers: Atrial fibrillation type: persistent Qualified Code(s): I48.1 - Persistent atrial fibrillation; I48.1 - Persistent atrial fibrillation; I48.1 - Persistent atrial fibrillation; I48.1 - Persistent atrial fibrillation (8) Cirrhosis Code(s): K74.60 - UNSPECIFIED CIRRHOSIS OF LIVER Qualifiers: Hepatic cirrhosis type: unspecified hepatic cirrhosis Ascites presence : with ascites Qualified Code(s): K74.60 - Unspecified cirrhosis of liver ; K74.60 - Unspecified cirrhosis of liver; K74.60 - Unspecified cirrhosis of liver (9) Congestive heart failure Code(s): I50.9 - HEART FAILURE, UNSPECIFIED Qualifiers: Congestive heart failure type: systolic Congestive heart failure chronicity: chronic Qualified Code(s): I50.22 - Chronic systolic ( congestive) heart failure; I50.22 - Chronic systolic (congestive) heart failure ; I50.22 - Chronic systolic (congestive) heart failure; I50.22 - Chronic systolic (congestive) heart failure (10) Pleural effusion Code(s): J90 - PLEURAL EFFUSION, NOT ELSEWHERE CLASSIFIED (11) S/P CABG (coronary artery bypass graft) Code(s): Z95.1 - PRESENCE OF AORTOCORONARY BYPASS GRAFT Assessment/Plan Midodrine 10mg PO Wean and D/C Dopamine. HD per Renal O2 as needed ID follow up noted Floor once off Dopamine Dr Fuller Critical care time spent in reviewing chart, evaluating patient and formulating plan - 40 minutes. Problem List - Problems (1) Atrial fibrillation with rapid ventricular response Code(s): I48.91 - UNSPECIFIED ATRIAL FIBRILLATION (2) Coronary artery disease Code(s): I25.10 - ATHSCL HEART DISEASE OF [place] CORONARY ARTERY W/O ANG PCTRS Qualifiers: Coronary Disease-Associated Artery/Lesion type: [place] artery [place] vs. transplanted heart: [place] heart Associated angina: without angina Qualified Code(s): I25.10 - Atherosclerotic heart disease of [place] coronary artery without angina pectoris; I25.10 - Atherosclerotic heart disease of [place] coronary artery without angina pectoris; I25.10 - Atherosclerotic heart disease of [place] coronary artery without angina pectoris (3) Diabetes mellitus Code(s): E11.9 - TYPE 2 DIABETES MELLITUS WITHOUT COMPLICATIONS Qualifiers: Diabetes mellitus type: type 2 Diabetes mellitus complication status: with kidney complications Diabetes mellitus complication detail: with chronic kidney disease Diabetes mellitus terminal computer operator insulin use: with terminal computer operator use Chronic kidney disease stage: on chronic dialysis Qualified Code(s): E11.22 - Type 2 diabetes mellitus with diabetic chronic kidney disease ; E11.22 - Type 2 diabetes mellitus with diabetic chronic kidney disease; E11.22 - Type 2 diabetes mellitus with diabetic chronic kidney disease; E11.22 - Type 2 diabetes mellitus with diabetic chronic kidney disease; E11.22 - Type 2 diabetes mellitus with diabetic chronic kidney disease; N18.1 - Chronic kidney disease, stage 1; N18.1 - Chronic kidney disease, stage 1; Z79.4 - half-way (current) use of insulin; Z79.4 - 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; Z79.4 - half-way (current) use of insulin; Z79.4 - half-way (current) use of insulin (4) HTN (hypertension) Code(s): I10 - ESSENTIAL (PRIMARY) HYPERTENSION Qualifiers: Hypertension type: essential hypertension Qualified Code(s): I10 - Essential (primary) hypertension; I10 - Essential (primary) hypertension; I10 - Essential (primary) hypertension (5) Hypothyroidism Code(s): E03.9 - HYPOTHYROIDISM, UNSPECIFIED Qualifiers: Hypothyroidism type: acquired Qualified Code(s): E03.9 - Hypothyroidism, unspecified; E03.9 - Hypothyroidism, unspecified; E03.9 - Hypothyroidism, unspecified (6) ICD (implantable cardioverter-defibrillator) discharge Code(s): Z45.02 - ENCNTR FOR ADJUST AND MGMT OF AUTOMATIC IMPLNTBL CARD DEFIB (7) Atrial fibrillation Code(s): I48.91 - UNSPECIFIED ATRIAL FIBRILLATION Qualifiers: Atrial fibrillation type: persistent Qualified Code(s): I48.1 - Persistent atrial fibrillation; I48.1 - Persistent atrial fibrillation; I48.1 - Persistent atrial fibrillation; I48.1 - Persistent atrial fibrillation (8) Cirrhosis Code(s): K74.60 - UNSPECIFIED CIRRHOSIS OF LIVER Qualifiers: Hepatic cirrhosis type: unspecified hepatic cirrhosis Ascites presence : with ascites Qualified Code(s): K74.60 - Unspecified cirrhosis of liver ; K74.60 - Unspecified cirrhosis of liver; K74.60 - Unspecified cirrhosis of liver (9) Congestive heart failure Code(s): I50.9 - HEART FAILURE, UNSPECIFIED Qualifiers: Congestive heart failure type: systolic Congestive heart failure chronicity: chronic Qualified Code(s): I50.22 - Chronic systolic ( congestive) heart failure; I50.22 - Chronic systolic (congestive) heart failure ; I50.22 - Chronic systolic (congestive) heart failure; I50.22 - Chronic systolic (congestive) heart failure (10) Pleural effusion Code(s): J90 - PLEURAL EFFUSION, NOT ELSEWHERE CLASSIFIED (11) S/P CABG (coronary artery bypass graft) Code(s): Z95.1 - PRESENCE OF AORTOCORONARY BYPASS GRAFT
--- NOTE | 2017-05-04 12:06 | PN ---
Physical Exam: SUBJECTIVE: Patient seen and examined POD #2 AV graft right arm, c/o dizziness, when he moves from bed to chair. Some pain where fistula placed. Still on dopamine drip. Denies chest pain, palpitations, diaphoresis, cough, fever, chills. OBJECTIVE: Vital Signs Period Temp Pulse Resp BP Sys/Lopez Pulse Ox Last 24 Hr 97 F-98.2 F 58-78 15-24 71-115/40-78 98-100 GENERAL: The patient is awake, alert, and fully oriented, in no acute distress, sitting up in chair LUNGS: Breath sounds equal, clear to auscultation bilaterally, no wheezes, no crackles, no accessory muscle use. HEART: Regular rate and rhythm, S1, S2 without murmur, rub or gallop. ABDOMEN: Soft, nontender, nondistended, normoactive bowel sounds, no guarding, no rebound, no hepatosplenomegaly, no masses. EXTREMITIES: 2+ pulses, warm, well-perfused, no edema. Right arm AV graft NEUROLOGICAL: Cranial nerves II through XII grossly intact. Normal speech, gait not observed. PSYCH: Normal mood, normal affect. SKIN: Warm, dry, normal turgor, no rashes or lesions noted Laboratory Results - last 24 hr 05/03/17 05/03/17 05/03/17 12:10 12:44 14:20 WBC RBC Hgb Hct MCV MCH MCHC RDW Plt Count MPV Neutrophils % Lymphocytes % Monocytes % Eosinophils % Basophils % PT with INR INR Sodium 133 L Potassium 5.9 H Chloride 95 L Carbon Dioxide 19 L Anion Gap 19 H BUN 66 H Creatinine 7.8 H* Creat Clearance w eGFR 7.07 POC Glucometer [phone] Random Glucose 361 H* D Calcium 7.6 L Total Bilirubin 1.5 H D AST 155 H D ALT 93 H D Alkaline Phosphatase 98 Creatine Kinase 49 Troponin I 0.84 H* D Total Protein 7.0 Albumin 2.8 L Hepatitis C Antibody 0.1 05/03/17 05/04/17 05/04/17 17:32 08:00 08:00 WBC 8.4 RBC 3.46 L Hgb 9.7 L Hct 30.9 L MCV 89.4 MCH 28.0 MCHC 31.3 L RDW 21.5 H Plt Count 98 L MPV 9.7 Neutrophils % 79.3 Lymphocytes % 6.3 L D Monocytes % 11.2 H Eosinophils % 2.5 D Basophils % 0.7 PT with INR 16.40 H INR 1.45 H Sodium Potassium Chloride Carbon Dioxide Anion Gap BUN Creatinine Creat Clearance w eGFR POC Glucometer [phone] Random Glucose Calcium Total Bilirubin AST ALT Alkaline Phosphatase Creatine Kinase Troponin I Total Protein Albumin Hepatitis C Antibody 05/04/17 08:00 WBC RBC Hgb Hct MCV MCH MCHC RDW Plt Count MPV Neutrophils % Lymphocytes % Monocytes % Eosinophils % Basophils % PT with INR INR Sodium 135 L Potassium 4.7 D Chloride 98 Carbon Dioxide 26 D Anion Gap 11 BUN 55 H Creatinine 6.4 H Creat Clearance w eGFR 8.89 POC Glucometer Random Glucose 184 H D Calcium 7.5 L Total Bilirubin 0.6 D AST 78 H D ALT 70 D Alkaline Phosphatase 90 Creatine Kinase Troponin I Total Protein 6.7 Albumin 2.7 L Hepatitis C Antibody Active Medications Generic Name Dose Route Start Last Admin Trade Name Freq PRN Reason Stop Dose Admin Acetaminophen 325 mg 05/03/17 07:31 05/04/17 09:25 Tylenol - PO 325 mg BID PRN Administration Amiodarone HCl 100 mg 05/03/17 10:00 05/04/17 09:04 Cordarone - PO 100 mg DAILY RACHEL Administration Epoetin Chevy 10,000 units 05/04/17 09:50 Epogen - SQ 05/04/17 09:51 ONCE ONE Dopamine HCl/Dextrose 250 mls @ 15.309 mls/hr 05/03/17 08:15 05/04/17 11:30 Dopamine 400 Mg/D5w - IVPB 7.5 mcg/kg/min TITR RACHEL Titration Protocol 5 MCG/KG/MIN Insulin Aspart 1 units 05/03/17 16:30 05/04/17 06:13 Novolog Vial SQ Not Given BIDAC [facility] Protocol Levothyroxine Sodium 75 mcg 05/03/17 07:00 05/04/17 06:13 Synthroid - PO 75 mcg DAILY@0700 R[facility]HEL Administration Midodrine 10 mg 05/05/17 10:00 Proamatine - PO DAILY RACHEL Oxycodone HCl 5 mg 05/03/17 07:31 05/04/17 09:24 Roxicodone - PO 5 mg BID PRN Administration Sevelamer Carbonate 800 mg 05/03/17 08:00 05/04/17 11:07 Renvela - PO 800 mg TIDCM [facility] Administration Sodium Polystyrene Sulfonate 15 gm 05/03/17 10:00 05/03/17 10:54 Kayexalate - PO 15 gm Q2D [facility] Administration Sucralfate 1 gm 05/03/17 10:00 05/04/17 09:25 Carafate - PO 1 gm BID R[facility] Administration Warfarin Sodium 3 mg 05/03/17 18:00 05/03/17 18:29 Coumadin - PO Not Given DAILY@1800 [facility] ASSESSMENT/PLAN: 61 year old male with ESRD, on HD, chronic hypotension, atrial fibrillation, DM , had right arm AV fistula placed 05/02, admitted for hypotension, currently on dopamine drip. #hypotension s/p AV graft placement -patient bp at home runs 80s systolic/ 50s diastolic; he take midodrine 5mg bid at home -currently still on dopamine drip due to HD today -once had HD ; titrate down drip -place patient on 10mg midodrine po daily -vascular following -transfer to floors once drip d/c'd #ESRD -HD #Atrial fibrillation -cont warfarin -INR #DM: -insulin ss -bgm FEN: oral intake electrolytes VTE :on warfarin Disposition: transfer to floors Problem List - Problems (1) Atrial fibrillation with rapid ventricular response Code(s): I48.91 - UNSPECIFIED ATRIAL FIBRILLATION (2) Coronary artery disease Code(s): I25.10 - ATHSCL HEART DISEASE OF [place] CORONARY ARTERY W/O ANG PCTRS Qualifiers: Coronary Disease-Associated Artery/Lesion type: [place] artery [place] vs. transplanted heart: [place] heart Associated angina: without angina Qualified Code(s): I25.10 - Atherosclerotic heart disease of [place] coronary artery without angina pectoris; I25.10 - Atherosclerotic heart disease of [place] coronary artery without angina pectoris; I25.10 - Atherosclerotic heart disease of [place] coronary artery without angina pectoris (3) Demand ischemia Code(s): I24.8 - OTHER FORMS OF ACUTE ISCHEMIC HEART DISEASE (4) Diabetes mellitus Code(s): E11.9 - TYPE 2 DIABETES MELLITUS WITHOUT COMPLICATIONS Qualifiers: Diabetes mellitus type: type 2 Diabetes mellitus complication status: with kidney complications Diabetes mellitus complication detail: with chronic kidney disease Diabetes mellitus buttermaker continuous churn insulin use: with fpc use Chronic kidney disease stage: on chronic dialysis Qualified Code(s): E11.22 - Type 2 diabetes mellitus with diabetic chronic kidney disease ; E11.22 - Type 2 diabetes mellitus with diabetic chronic kidney disease; E11.22 - Type 2 diabetes mellitus with diabetic chronic kidney disease; E11.22 - Type 2 diabetes mellitus with diabetic chronic kidney disease; E11.22 - Type 2 diabetes mellitus with diabetic chronic kidney disease; N18.1 - Chronic kidney disease, stage 1; N18.1 - Chronic kidney disease, stage 1; Z79.4 - snf (current) use of insulin; Z79.4 - intermission coordinator (current) use of insulin; Z79.4 - snf (current) use of insulin; Z79.4 - snf (current) use of insulin (5) Hypothyroidism Code(s): E03.9 - HYPOTHYROIDISM, UNSPECIFIED Qualifiers: Hypothyroidism type: acquired Qualified Code(s): E03.9 - Hypothyroidism, unspecified; E03.9 - Hypothyroidism, unspecified; E03.9 - Hypothyroidism, unspecified (6) ICD (implantable cardioverter-defibrillator) discharge Code(s): Z45.02 - ENCNTR FOR ADJUST AND MGMT OF AUTOMATIC IMPLNTBL CARD DEFIB (7) ESRD (end stage renal disease) Code(s): N18.6 - END STAGE RENAL DISEASE Visit type - Emergency Visit Emergency Visit: Yes ED Registration Date: 05/03/17 Care time: The patient presented to the Emergency Department on the above date and was hospitalized for further evaluation of their emergent condition. - New Patient This patient is new to me today: No - Critical Care Critical Care patient: Yes Total Critical Care Time (in minutes): 36 Critical Care Statement: The care of this patient involved high complexity decision making to prevent further life threatening deterioration of the patient 's condition and/or to evaluate & treat vital organ system(s) failure or risk of failure.
--- NOTE | 2017-05-04 12:45 | SURG ---
Surgery Optoelectronics Engineer Note Optoelectronics Engineer: Elsa Clemens PA-C Date of Service: 05/02/17 Diagnosis: ESRD on HD Procedure: Placement AV graft right arm I was present for the entirety of the operative procedure. For further detail, please refer to operative report. Visit type - Case Type Case Type: Scheduled Admission - Emergency Emergency Visit: No - New patient This patient is new to me today: Yes Date on this admission: 05/02/17
[2017-05-04] MEDS ORDERED: EPOETIN ALFA 10,000 UNIT/1 ML VIAL IVPUSH ONE (13:00)
[2017-05-04] MEDS: WARFARIN NA 3 MG TABLET PO SCH (17:02)
[2017-05-05] MEDS ORDERED: PT OWN MED DRAWER 7, Y5N ONE ×2 (06:15→11:05)
[2017-05-05 06:18] LABS: BASOPHIL 0.8 % (0-2.0); EOSINOPHIL 3.3 % (0-4.5); INR 1.33 (0.82-1.09); MCH 27.6 pg (25.7-33.7); MCHC 30.8 g/dl (32.0-35.9); MEAN CELL VOLUME 89.7 fl (80-96); MEAN PLT VOLUME 9.8 fl (7.5-11.1); NEUTROPHILS 73.7 % (42.8-82.8); PLATELET COUNT 86 K/MM3 (134-434); RDW 21.4 % (11.9-15.9)
[2017-05-05] MEDS: LEVOTHYROXINE NA 75 MCG TABLET (FP) PO SCH (06:24)
[2017-05-05] MEDS: INSULIN SLIDING SCALE (NOVOLOG) 1 VIAL SQ SCH ×2 (06:26→18:00)
[2017-05-05 06:32] LABS: ALBUMIN 2.7 g/dl (3.4-5.0); ANION GAP 9 (8-16); CALCIUM 7.9 mg/dL (8.5-10.1); CO2 29 mmol/L (21-32); GLUCOSE,RANDOM 182 mg/dL (74-106); MAGNESIUM 1.9 mg/dL (1.8-2.4)
[2017-05-05 06:36] LABS: ALK PHOS 90 U/L (45-117); BILIRUBIN,TOTAL 0.6 mg/dL (0.2-1.0); CREATININE 5.3 mg/dL (0.7-1.3); PHOSPHOROUS 5.5 mg/dL (2.5-4.9); SGOT/AST 56 U/L (15-37); SGPT/ALT 62 U/L (12-78); TOT PROT 6.7 g/dl (6.4-8.2)
[2017-05-05] MEDS: MIDODRINE HCL 5 MG TABLET PO SCH (06:48)
--- NOTE | 2017-05-05 09:05 | PN ---
Progress Note (short form) - Note Progress Note: Patient seen and examined in the ICU. Awake and alert. Remains on Dopamine. No CP or SOB. Reports chronic dizziness. Intake & Output 05/02/17 05/03/17 05/04/17 05/05/17 23:59 23:59 23:59 23:59 Intake Total 607 146 Balance 607 146 Weight 166 lb 14.4 oz 166 lb 14.4 oz 167 lb Last Vital Signs Temp Pulse Resp BP Pulse Ox 97.8 F 70 18 98/33 100 05/05/17 07:40 05/05/17 07:45 05/05/17 07:45 05/05/17 07:45 05/04/17 20:00 Active Medications Acetaminophen (Tylenol -) 325 mg PO BID PRN Last Admin: 05/04/17 22:30 Dose: 325 mg Amiodarone HCl (Cordarone -) 100 mg PO DAILY [facility] Last Admin: 05/04/17 09:04 Dose: 100 mg Dopamine HCl/Dextrose (Dopamine 400 Mg/D5w -) 250 mls @ 15.309 mls/hr IVPB TITR [facility]; 5 MCG/KG/MIN PRN Reason: Protocol Last Titration: 05/05/17 07:00 Dose: 1 mcg/kg/min Insulin Aspart (Novolog Vial Sliding Scale -) 1 vial SQ BIDAC [facility] PRN Reason: Protocol Last Admin: 05/05/17 06:26 Dose: 4 units Levothyroxine Sodium (Synthroid -) 75 mcg PO DAILY@0700 [facility] Last Admin: 05/05/17 06:24 Dose: 75 mcg Midodrine (Proamatine -) 10 mg PO DAILY@0600 [facility] Last Admin: 05/05/17 06:48 Dose: 10 mg Oxycodone HCl (Roxicodone -) 5 mg PO BID PRN Last Admin: 05/04/17 22:29 Dose: 5 mg Sevelamer Carbonate (Renvela -) 800 mg PO TIDCM [facility] Last Admin: 05/04/17 17:02 Dose: 800 mg Sodium Polystyrene Sulfonate (Kayexalate -) 15 gm PO Q2D [facility] Last Admin: 05/03/17 10:54 Dose: 15 gm Sucralfate (Carafate -) 1 gm PO BID [facility] Last Admin: 05/04/17 21:27 Dose: 1 gm Warfarin Sodium (Coumadin -) 3 mg PO DAILY@1800 [facility] Last Admin: 05/04/17 17:02 Dose: 3 mg Constitutional: Yes: Well Nourished, No Distress Eyes: Yes: Conjunctiva Clear, EOM Intact HENT: Yes: Atraumatic, Normocephalic Neck: Yes: Supple, Trachea Midline Cardiovascular: Yes: Regular Rate and Rhythm Respiratory: Yes: On Nasal O2, Rhonchi. No: Accessory Muscle Use, Rales, Stridor, Tachypnea, Wheezes Gastrointestinal: Yes: WNL ...Rectal Exam: Yes: Deferred Musculoskeletal: Yes: Other (post operative changes RUE) Edema: No Peripheral Pulses WNL: Yes Wound/Incision: Yes: Clean/Dry, Well Approximated, Shen Intact Neurological: Yes: Alert, Oriented ...Motor Strength: WNL Psychiatric: Yes: WNL, Alert, Oriented Labs: Laboratory Results - last 24 hr 05/03/17 05/04/17 05/04/17 14:20 06:06 08:00 WBC 8.4 RBC 3.46 L Hgb 9.7 L Hct 30.9 L MCV 89.4 MCH 28.0 MCHC 31.3 L RDW 21.5 H Plt Count 98 L MPV 9.7 Neutrophils % 79.3 Lymphocytes % 6.3 L D Monocytes % 11.2 H Eosinophils % 2.5 D Basophils % 0.7 PT with INR INR Sodium Potassium Chloride Carbon Dioxide Anion Gap BUN Creatinine Creat Clearance w eGFR POC Glucometer [phone] Random Glucose Calcium Phosphorus Magnesium Total Bilirubin AST ALT Alkaline Phosphatase Total Protein Albumin Hep A IgM Ab Confirm Negative Hepatitis A Ab Total Positive H Hep Bs Antigen Negative Hep Bs Antibody Non reactive Hep B Core Total Ab Negative Hepatitis C Antibody 0.1 05/04/17 05/04/17 05/04/17 08:00 08:00 16:56 WBC RBC Hgb Hct MCV MCH MCHC RDW Plt Count MPV Neutrophils % Lymphocytes % Monocytes % Eosinophils % Basophils % PT with INR 16.40 H INR 1.45 H Sodium 135 L Potassium 4.7 D Chloride 98 Carbon Dioxide 26 D Anion Gap 11 BUN 55 H Creatinine 6.4 H Creat Clearance w eGFR 8.89 POC Glucometer [phone] Random Glucose 184 H D Calcium 7.5 L Phosphorus Magnesium Total Bilirubin 0.6 D AST 78 H D ALT 70 D Alkaline Phosphatase 90 Total Protein 6.7 Albumin 2.7 L Hep A IgM Ab Confirm Hepatitis A Ab Total Hep Bs Antigen Hep Bs Antibody Hep B Core Total Ab Hepatitis C Antibody 05/05/17 05/05/17 05/05/17 05:05 05:05 05:05 WBC 6.0 RBC 3.14 L Hgb 8.7 L D Hct 28.2 L MCV 89.7 MCH 27.6 MCHC 30.8 L RDW 21.4 H Plt Count 86 L MPV 9.8 Neutrophils % 73.7 Lymphocytes % 8.3 D Monocytes % 13.9 H Eosinophils % 3.3 Basophils % 0.8 PT with INR 15.00 H INR 1.33 H Sodium 135 L Potassium 4.4 Chloride 97 L Carbon Dioxide 29 Anion Gap 9 BUN 49 H Creatinine 5.3 H Creat Clearance w eGFR 11.05 POC Glucometer Random Glucose 182 H Calcium 7.9 L Phosphorus 5.5 H Magnesium 1.9 Total Bilirubin 0.6 AST 56 H D ALT 62 Alkaline Phosphatase 90 Total Protein 6.7 Albumin 2.7 L Hep A IgM Ab Confirm Hepatitis A Ab Total Hep Bs Antigen Hep Bs Antibody Hep B Core Total Ab Hepatitis C Antibody Problem List - Problems (1) Atrial fibrillation with rapid ventricular response Code(s): I48.91 - UNSPECIFIED ATRIAL FIBRILLATION (2) Coronary artery disease Code(s): I25.10 - ATHSCL HEART DISEASE OF [place] CORONARY ARTERY W/O ANG PCTRS Qualifiers: Coronary Disease-Associated Artery/Lesion type: [place] artery [place] vs. transplanted heart: [place] heart Associated angina: without angina Qualified Code(s): I25.10 - Atherosclerotic heart disease of [place] coronary artery without angina pectoris; I25.10 - Atherosclerotic heart disease of [place] coronary artery without angina pectoris; I25.10 - Atherosclerotic heart disease of [place] coronary artery without angina pectoris (3) Diabetes mellitus Code(s): E11.9 - TYPE 2 DIABETES MELLITUS WITHOUT COMPLICATIONS Qualifiers: Diabetes mellitus type: type 2 Diabetes mellitus complication status: with kidney complications Diabetes mellitus complication detail: with chronic kidney disease Diabetes mellitus exterminator helper insulin use: with prison use Chronic kidney disease stage: on chronic dialysis Qualified Code(s): E11.22 - Type 2 diabetes mellitus with diabetic chronic kidney disease ; E11.22 - Type 2 diabetes mellitus with diabetic chronic kidney disease; E11.22 - Type 2 diabetes mellitus with diabetic chronic kidney disease; E11.22 - Type 2 diabetes mellitus with diabetic chronic kidney disease; E11.22 - Type 2 diabetes mellitus with diabetic chronic kidney disease; N18.1 - Chronic kidney disease, stage 1; N18.1 - Chronic kidney disease, stage 1; Z79.4 - assisted (current) use of insulin; Z79.4 - assisted (current) use of insulin; Z79.4 - assisted (current) use of insulin; Z79.4 - assisted (current) use of insulin (4) HTN (hypertension) Code(s): I10 - ESSENTIAL (PRIMARY) HYPERTENSION Qualifiers: Hypertension type: essential hypertension Qualified Code(s): I10 - Essential (primary) hypertension; I10 - Essential (primary) hypertension; I10 - Essential (primary) hypertension (5) Hypothyroidism Code(s): E03.9 - HYPOTHYROIDISM, UNSPECIFIED Qualifiers: Hypothyroidism type: acquired Qualified Code(s): E03.9 - Hypothyroidism, unspecified; E03.9 - Hypothyroidism, unspecified; E03.9 - Hypothyroidism, unspecified (6) ICD (implantable cardioverter-defibrillator) discharge Code(s): Z45.02 - ENCNTR FOR ADJUST AND MGMT OF AUTOMATIC IMPLNTBL CARD DEFIB (7) Atrial fibrillation Code(s): I48.91 - UNSPECIFIED ATRIAL FIBRILLATION Qualifiers: Atrial fibrillation type: persistent Qualified Code(s): I48.1 - Persistent atrial fibrillation; I48.1 - Persistent atrial fibrillation; I48.1 - Persistent atrial fibrillation; I48.1 - Persistent atrial fibrillation (8) Cirrhosis Code(s): K74.60 - UNSPECIFIED CIRRHOSIS OF LIVER Qualifiers: Hepatic cirrhosis type: unspecified hepatic cirrhosis Ascites presence : with ascites Qualified Code(s): K74.60 - Unspecified cirrhosis of liver ; K74.60 - Unspecified cirrhosis of liver; K74.60 - Unspecified cirrhosis of liver (9) Congestive heart failure Code(s): I50.9 - HEART FAILURE, UNSPECIFIED Qualifiers: Congestive heart failure type: systolic Congestive heart failure chronicity: chronic Qualified Code(s): I50.22 - Chronic systolic ( congestive) heart failure; I50.22 - Chronic systolic (congestive) heart failure ; I50.22 - Chronic systolic (congestive) heart failure; I50.22 - Chronic systolic (congestive) heart failure (10) Pleural effusion Code(s): J90 - PLEURAL EFFUSION, NOT ELSEWHERE CLASSIFIED (11) S/P CABG (coronary artery bypass graft) Code(s): Z95.1 - PRESENCE OF AORTOCORONARY BYPASS GRAFT Assessment/Plan Midodrine 10mg PO Wean and D/C Dopamine. HD per Renal O2 as needed Floor once off Dopamine Dr Fuller Critical care time spent in reviewing chart, evaluating patient and formulating plan - 40 minutes. Problem List - Problems (1) Atrial fibrillation with rapid ventricular response Code(s): I48.91 - UNSPECIFIED ATRIAL FIBRILLATION (2) Coronary artery disease Code(s): I25.10 - ATHSCL HEART DISEASE OF [place] CORONARY ARTERY W/O ANG PCTRS Qualifiers: Coronary Disease-Associated Artery/Lesion type: [place] artery [place] vs. transplanted heart: [place] heart Associated angina: without angina Qualified Code(s): I25.10 - Atherosclerotic heart disease of [place] coronary artery without angina pectoris; I25.10 - Atherosclerotic heart disease of [place] coronary artery without angina pectoris; I25.10 - Atherosclerotic heart disease of [place] coronary artery without angina pectoris (3) Diabetes mellitus Code(s): E11.9 - TYPE 2 DIABETES MELLITUS WITHOUT COMPLICATIONS Qualifiers: Diabetes mellitus type: type 2 Diabetes mellitus complication status: with kidney complications Diabetes mellitus complication detail: with chronic kidney disease Diabetes mellitus prison insulin use: with exterminator helper use Chronic kidney disease stage: on chronic dialysis Qualified Code(s): E11.22 - Type 2 diabetes mellitus with diabetic chronic kidney disease ; E11.22 - Type 2 diabetes mellitus with diabetic chronic kidney disease; E11.22 - Type 2 diabetes mellitus with diabetic chronic kidney disease; E11.22 - Type 2 diabetes mellitus with diabetic chronic kidney disease; E11.22 - Type 2 diabetes mellitus with diabetic chronic kidney disease; N18.1 - Chronic kidney disease, stage 1; N18.1 - Chronic kidney disease, stage 1; Z79.4 - assisted (current) use of insulin; Z79.4 - watermelon harvesting supervisor (current) use of insulin; Z79.4 - assisted (current) use of insulin; Z79.4 - assisted (current) use of insulin (4) HTN (hypertension) Code(s): I10 - ESSENTIAL (PRIMARY) HYPERTENSION Qualifiers: Hypertension type: essential hypertension Qualified Code(s): I10 - Essential (primary) hypertension; I10 - Essential (primary) hypertension; I10 - Essential (primary) hypertension (5) Hypothyroidism Code(s): E03.9 - HYPOTHYROIDISM, UNSPECIFIED Qualifiers: Hypothyroidism type: acquired Qualified Code(s): E03.9 - Hypothyroidism, unspecified; E03.9 - Hypothyroidism, unspecified; E03.9 - Hypothyroidism, unspecified (6) ICD (implantable cardioverter-defibrillator) discharge Code(s): Z45.02 - ENCNTR FOR ADJUST AND MGMT OF AUTOMATIC IMPLNTBL CARD DEFIB (7) Atrial fibrillation Code(s): I48.91 - UNSPECIFIED ATRIAL FIBRILLATION Qualifiers: Atrial fibrillation type: persistent Qualified Code(s): I48.1 - Persistent atrial fibrillation; I48.1 - Persistent atrial fibrillation; I48.1 - Persistent atrial fibrillation; I48.1 - Persistent atrial fibrillation (8) Cirrhosis Code(s): K74.60 - UNSPECIFIED CIRRHOSIS OF LIVER Qualifiers: Hepatic cirrhosis type: unspecified hepatic cirrhosis Ascites presence : with ascites Qualified Code(s): K74.60 - Unspecified cirrhosis of liver ; K74.60 - Unspecified cirrhosis of liver; K74.60 - Unspecified cirrhosis of liver (9) Congestive heart failure Code(s): I50.9 - HEART FAILURE, UNSPECIFIED Qualifiers: Congestive heart failure type: systolic Congestive heart failure chronicity: chronic Qualified Code(s): I50.22 - Chronic systolic ( congestive) heart failure; I50.22 - Chronic systolic (congestive) heart failure ; I50.22 - Chronic systolic (congestive) heart failure; I50.22 - Chronic systolic (congestive) heart failure (10) Pleural effusion Code(s): J90 - PLEURAL EFFUSION, NOT ELSEWHERE CLASSIFIED (11) S/P CABG (coronary artery bypass graft) Code(s): Z95.1 - PRESENCE OF AORTOCORONARY BYPASS GRAFT
[2017-05-05] MEDS: SEVELAMER CARBONATE 800 MG TAB (FP) PO SCH ×3 (09:13→18:00)
--- NOTE | 2017-05-05 10:22 | PN ---
Progress Note (short form) - Note Progress Note: RENAL SEEN AT THE END OF HD HIPS 20 3 HR K2 CA2.5 TARGET 3 KG EPO 10K ON DOPA 4 MCG PO MIDODRINE 10 DAILY BP IN 80S CULTURES NEG ALL LABS REVIEWED ALL NOTES REVIEWED SUGGEST TAPER OFF DOPA LONG BP IS 80 SYSTOLIC OOB TO CHAIR SHOULD TRANSFER OFF THE ICU IF BP STABLE OFF DOPA NEXT HD SUNDAY IF STABLE CAN THEN GO HOME
[2017-05-05] MEDS: AMIODARONE HCL 200 MG TABLET (FP) PO SCH (10:43)
[2017-05-05] MEDS: SUCRALFATE 1 GM TABLET (FP) PO SCH ×2 (10:44→21:43)
[2017-05-05] MEDS: SODIUM POLYSTYRENE SULFONATE 15 GM/60 ML BOTTLE PO SCH (10:45)
[2017-05-05] MEDS: oxyCODONE HCL 5 MG TABLET PO PRN ×2 (10:51→19:49)
[2017-05-05] MEDS: ACETAMINOPHEN 325 MG TABLET (FP) PO PRN ×2 (10:51→19:50)
[2017-05-05] MEDS ORDERED: EPOETIN ALFA 20,000 UNIT/1 ML VIAL SQ ONE (11:00)
[2017-05-05] MEDS: DOPAMINE 400 MG/D5W - 250 ML IVPB SCH (11:02)
--- NOTE | 2017-05-05 11:54 | PN ---
Progress Note (short form) - Note Progress Note: off dopamine alert oob to chair no fevers Vital Signs Period Temp Pulse Resp BP Sys/Lopez Pulse Ox Last 24 Hr 97.4 F-98.6 F 60-77 15-23 83-108/20-58 100-100 cor-rrr lungs decreased bs at bases abd soft, nt ext no edema ecchymoses RUE CBC, BMP 05/05/17 05:05 05/05/17 05:05 Microbiology 05/03/17 03:21 Blood - Peripheral Venous Blood Culture - Preliminary NO GROWTH OBTAINED AFTER 48 HOURS, INCUBATION TO CONTINUE FOR 3 DAYS. 05/03/17 03:21 Blood - Peripheral Venous Blood Culture - Preliminary NO GROWTH OBTAINED AFTER 48 HOURS, INCUBATION TO CONTINUE FOR 3 DAYS. a/p stable from ID standpoint cultures negative please call back if needed
[2017-05-05] MEDS: WARFARIN NA 3 MG TABLET PO SCH (18:00)
--- NOTE | 2017-05-05 18:13 | PN ---
Progress Note, Physician Chief Complaint: Feels better - Current Medication List Current Medications: Active Medications Acetaminophen (Tylenol -) 325 mg PO BID PRN Last Admin: 05/05/17 10:51 Dose: 325 mg Amiodarone HCl (Cordarone -) 100 mg PO DAILY [facility] Last Admin: 05/05/17 10:43 Dose: 100 mg Dopamine HCl/Dextrose (Dopamine 400 Mg/D5w -) 250 mls @ 15.309 mls/hr IVPB TITR [facility]; 5 MCG/KG/MIN PRN Reason: Protocol Last Admin: 05/05/17 11:02 Dose: Not Given Insulin Aspart (Novolog Vial Sliding Scale -) 1 vial SQ BIDAC [facility] PRN Reason: Protocol Last Admin: 05/05/17 18:00 Dose: 4 units Levothyroxine Sodium (Synthroid -) 75 mcg PO DAILY@0700 [facility] Last Admin: 05/05/17 06:24 Dose: 75 mcg Midodrine (Proamatine -) 10 mg PO DAILY@0600 [facility] Last Admin: 05/05/17 06:48 Dose: 10 mg Oxycodone HCl (Roxicodone -) 5 mg PO BID PRN Last Admin: 05/05/17 10:51 Dose: 5 mg Sevelamer Carbonate (Renvela -) 800 mg PO TIDCM [facility] Last Admin: 05/05/17 18:00 Dose: 800 mg Sodium Polystyrene Sulfonate (Kayexalate -) 15 gm PO Q2D [facility] Last Admin: 05/05/17 10:45 Dose: 15 gm Sucralfate (Carafate -) 1 gm PO BID [facility] Last Admin: 05/05/17 10:44 Dose: 1 gm Warfarin Sodium (Coumadin -) 3 mg PO DAILY@1800 [facility] Last Admin: 05/05/17 18:00 Dose: 3 mg - Objective Vital Signs: Vital Signs Temperature 97.8 F 05/05/17 07:40 Pulse Rate 63 05/05/17 12:08 Respiratory Rate 18 05/05/17 12:08 Blood Pressure 98/33 05/05/17 12:08 O2 Sat by Pulse Oximetry (%) 100 05/05/17 12:00 Constitutional: Yes: No Distress Neck: Yes: Supple Cardiovascular: Yes: Regular Rate and Rhythm, S1, S2 Respiratory: Yes: CTA Bilaterally Gastrointestinal: Yes: Normal Bowel Sounds, Soft Neurological: Yes: Alert, Oriented. No: Loss of Sensation ...Motor Strength: WNL Labs: CBC, BMP 05/05/17 05:05 05/05/17 05:05 INR, PTT INR 1.33 (0.82-1.09) H 05/05/17 05:05 Problem List - Problems (1) HTN (hypertension) Assessment/Plan: BP improving after episode of hypotension Code(s): I10 - ESSENTIAL (PRIMARY) HYPERTENSION Qualifiers: Hypertension type: essential hypertension Qualified Code(s): I10 - Essential (primary) hypertension; I10 - Essential (primary) hypertension; I10 - Essential (primary) hypertension (2) ESRD (end stage renal disease) Assessment/Plan: HD Sunday as per renal Code(s): N18.6 - END STAGE RENAL DISEASE
[2017-05-06] MEDS ORDERED: INSULIN (NOVOLOG) ASPART 100 UNITS/ML 10ML VIAL ONE (05:37)
[2017-05-06] MEDS: INSULIN SLIDING SCALE (NOVOLOG) 1 VIAL SQ SCH ×2 (06:01→17:41)
[2017-05-06] MEDS: LEVOTHYROXINE NA 75 MCG TABLET (FP) PO SCH (06:01)
[2017-05-06] MEDS: MIDODRINE HCL 5 MG TABLET PO SCH (06:01)
[2017-05-06 06:28] LABS: BASOPHIL 1.4 % (0-2.0); EOSINOPHIL 4.4 % (0-4.5); MEAN CELL VOLUME 90.3 fl (80-96); MEAN PLT VOLUME 9.4 fl (7.5-11.1); NEUTROPHILS 73.5 % (42.8-82.8); PLATELET COUNT 79 K/MM3 (134-434); RDW 21.4 % (11.9-15.9)
[2017-05-06 06:39] LABS: INR 1.21 (0.82-1.09); PROTHROMBIN TIME (PATIENT) 13.7 SEC (9.98-11.88)
[2017-05-06 07:19] LABS: ALBUMIN 2.7 g/dl (3.4-5.0); ANION GAP 9 (8-16); CALCIUM 8.1 mg/dL (8.5-10.1); CO2 29 mmol/L (21-32); CREATININE 5.2 mg/dL (0.7-1.3); GLUCOSE,RANDOM 180 mg/dL (74-106); SGOT/AST 35 U/L (15-37); SGPT/ALT 48 U/L (12-78)
[2017-05-06 07:20] LABS: ALK PHOS 106 U/L (45-117); BILIRUBIN,TOTAL 0.5 mg/dL (0.2-1.0); TOT PROT 6.8 g/dl (6.4-8.2)
[2017-05-06] MEDS: oxyCODONE HCL 5 MG TABLET PO PRN ×3 (08:25→23:01)
[2017-05-06] MEDS: ACETAMINOPHEN 325 MG TABLET (FP) PO PRN ×2 (08:26→14:01)
[2017-05-06] MEDS: SEVELAMER CARBONATE 800 MG TAB (FP) PO SCH ×3 (08:26→17:41)
--- NOTE | 2017-05-06 09:10 | PN ---
Progress Note (short form) - Note Progress Note: Patient seen and examined in the ICU. Awake and alert. Currently off Dopamine. No CP or SOB. Reports diffuse body pain (chronic). Intake & Output 05/03/17 05/04/17 05/05/17 05/06/17 23:59 23:59 23:59 23:59 Intake Total 607 1046 Balance 607 1046 Weight 166 lb 14.4 oz 166 lb 14.4 oz 167 lb Last Vital Signs Temp Pulse Resp BP Pulse Ox 98.5 F 63 20 80/62 100 05/06/17 06:00 05/06/17 06:00 05/06/17 06:00 05/06/17 06:00 05/05/17 19:54 Active Medications Acetaminophen (Tylenol -) 325 mg PO BID PRN Last Admin: 05/06/17 08:26 Dose: 325 mg Amiodarone HCl (Cordarone -) 100 mg PO DAILY [facility] Last Admin: 05/05/17 10:43 Dose: 100 mg Insulin Aspart (Novolog Vial Sliding Scale -) 1 vial SQ BIDAC [facility] PRN Reason: Protocol Last Admin: 05/06/17 06:01 Dose: 4 units Levothyroxine Sodium (Synthroid -) 75 mcg PO DAILY@0700 [facility] Last Admin: 05/06/17 06:01 Dose: 75 mcg Midodrine (Proamatine -) 10 mg PO DAILY@0600 [facility] Last Admin: 05/06/17 06:01 Dose: 10 mg Oxycodone HCl (Roxicodone -) 5 mg PO BID PRN Last Admin: 05/06/17 08:25 Dose: 5 mg Sevelamer Carbonate (Renvela -) 800 mg PO TIDCM [facility] Last Admin: 05/06/17 08:26 Dose: 800 mg Sodium Polystyrene Sulfonate (Kayexalate -) 15 gm PO Q2D [facility] Last Admin: 05/05/17 10:45 Dose: 15 gm Sucralfate (Carafate -) 1 gm PO BID [facility] Last Admin: 05/05/17 21:43 Dose: 1 gm Warfarin Sodium (Coumadin -) 3 mg PO DAILY@1800 [facility] Last Admin: 05/05/17 18:00 Dose: 3 mg Constitutional: Yes: Well Nourished, No Distress Eyes: Yes: Conjunctiva Clear, EOM Intact HENT: Yes: Atraumatic, Normocephalic Neck: Yes: Supple, Trachea Midline Cardiovascular: Yes: Regular Rate and Rhythm Respiratory: Yes: On Nasal O2, Rhonchi. No: Accessory Muscle Use, Rales, Stridor, Tachypnea, Wheezes Gastrointestinal: Yes: WNL ...Rectal Exam: Yes: Deferred Musculoskeletal: Yes: Other (post operative changes RUE) Edema: No Peripheral Pulses WNL: Yes Wound/Incision: Yes: Clean/Dry, Well Approximated, Shen Intact Neurological: Yes: Alert, Oriented ...Motor Strength: WNL Psychiatric: Yes: WNL, Alert, Oriented Labs: Laboratory Results - last 24 hr 05/05/17 05/06/17 05/06/17 05:25 05:05 05:05 WBC 5.0 RBC 3.10 L Hgb 8.7 L Hct 28.0 L MCV 90.3 MCH 28.0 MCHC 31.0 L RDW 21.4 H Plt Count 79 L MPV 9.4 Neutrophils % 73.5 Lymphocytes % 9.9 Monocytes % 10.8 H Eosinophils % 4.4 Basophils % 1.4 PT with INR 13.70 H INR 1.21 H Sodium Potassium Chloride Carbon Dioxide Anion Gap BUN Creatinine Creat Clearance w eGFR POC Glucometer [phone] Random Glucose Calcium Total Bilirubin AST ALT Alkaline Phosphatase Total Protein Albumin 05/06/17 05/06/17 05:05 05:13 WBC RBC Hgb Hct MCV MCH MCHC RDW Plt Count MPV Neutrophils % Lymphocytes % Monocytes % Eosinophils % Basophils % PT with INR INR Sodium 137 Potassium 3.9 Chloride 99 Carbon Dioxide 29 Anion Gap 9 BUN 59 H D Creatinine 5.2 H Creat Clearance w eGFR 11.30 POC Glucometer [phone] Random Glucose 180 H Calcium 8.1 L Total Bilirubin 0.5 AST 35 D ALT 48 D Alkaline Phosphatase 106 Total Protein 6.8 Albumin 2.7 L Problem List - Problems (1) Atrial fibrillation with rapid ventricular response Code(s): I48.91 - UNSPECIFIED ATRIAL FIBRILLATION (2) Coronary artery disease Code(s): I25.10 - ATHSCL HEART DISEASE OF [place] CORONARY ARTERY W/O ANG PCTRS Qualifiers: Coronary Disease-Associated Artery/Lesion type: [place] artery [place] vs. transplanted heart: [place] heart Associated angina: without angina Qualified Code(s): I25.10 - Atherosclerotic heart disease of [place] coronary artery without angina pectoris; I25.10 - Atherosclerotic heart disease of [place] coronary artery without angina pectoris; I25.10 - Atherosclerotic heart disease of [place] coronary artery without angina pectoris (3) Diabetes mellitus Code(s): E11.9 - TYPE 2 DIABETES MELLITUS WITHOUT COMPLICATIONS Qualifiers: Diabetes mellitus type: type 2 Diabetes mellitus complication status: with kidney complications Diabetes mellitus complication detail: with chronic kidney disease Diabetes mellitus usp insulin use: with usp use Chronic kidney disease stage: on chronic dialysis Qualified Code(s): E11.22 - Type 2 diabetes mellitus with diabetic chronic kidney disease ; E11.22 - Type 2 diabetes mellitus with diabetic chronic kidney disease; E11.22 - Type 2 diabetes mellitus with diabetic chronic kidney disease; E11.22 - Type 2 diabetes mellitus with diabetic chronic kidney disease; E11.22 - Type 2 diabetes mellitus with diabetic chronic kidney disease; N18.1 - Chronic kidney disease, stage 1; N18.1 - Chronic kidney disease, stage 1; Z79.4 - termite helper (current) use of insulin; Z79.4 - group home (current) use of insulin; Z79.4 - group home (current) use of insulin; Z79.4 - termite helper (current) use of insulin (4) HTN (hypertension) Code(s): I10 - ESSENTIAL (PRIMARY) HYPERTENSION Qualifiers: Hypertension type: essential hypertension Qualified Code(s): I10 - Essential (primary) hypertension; I10 - Essential (primary) hypertension; I10 - Essential (primary) hypertension (5) Hypothyroidism Code(s): E03.9 - HYPOTHYROIDISM, UNSPECIFIED Qualifiers: Hypothyroidism type: acquired Qualified Code(s): E03.9 - Hypothyroidism, unspecified; E03.9 - Hypothyroidism, unspecified; E03.9 - Hypothyroidism, unspecified (6) ICD (implantable cardioverter-defibrillator) discharge Code(s): Z45.02 - ENCNTR FOR ADJUST AND MGMT OF AUTOMATIC IMPLNTBL CARD DEFIB (7) Atrial fibrillation Code(s): I48.91 - UNSPECIFIED ATRIAL FIBRILLATION Qualifiers: Atrial fibrillation type: persistent Qualified Code(s): I48.1 - Persistent atrial fibrillation; I48.1 - Persistent atrial fibrillation; I48.1 - Persistent atrial fibrillation; I48.1 - Persistent atrial fibrillation (8) Cirrhosis Code(s): K74.60 - UNSPECIFIED CIRRHOSIS OF LIVER Qualifiers: Hepatic cirrhosis type: unspecified hepatic cirrhosis Ascites presence : with ascites Qualified Code(s): K74.60 - Unspecified cirrhosis of liver ; K74.60 - Unspecified cirrhosis of liver; K74.60 - Unspecified cirrhosis of liver (9) Congestive heart failure Code(s): I50.9 - HEART FAILURE, UNSPECIFIED Qualifiers: Congestive heart failure type: systolic Congestive heart failure chronicity: chronic Qualified Code(s): I50.22 - Chronic systolic ( congestive) heart failure; I50.22 - Chronic systolic (congestive) heart failure ; I50.22 - Chronic systolic (congestive) heart failure; I50.22 - Chronic systolic (congestive) heart failure (10) Pleural effusion Code(s): J90 - PLEURAL EFFUSION, NOT ELSEWHERE CLASSIFIED (11) S/P CABG (coronary artery bypass graft) Code(s): Z95.1 - PRESENCE OF AORTOCORONARY BYPASS GRAFT Assessment/Plan Midodrine 10mg PO Increase Oxycodone (patient reports that he takes 10 at home) HD per Renal O2 as needed Floor Dr Fuller Problem List - Problems (1) Atrial fibrillation with rapid ventricular response Code(s): I48.91 - UNSPECIFIED ATRIAL FIBRILLATION (2) Coronary artery disease Code(s): I25.10 - ATHSCL HEART DISEASE OF [place] CORONARY ARTERY W/O ANG PCTRS Qualifiers: Coronary Disease-Associated Artery/Lesion type: [place] artery [place] vs. transplanted heart: [place] heart Associated angina: without angina Qualified Code(s): I25.10 - Atherosclerotic heart disease of [place] coronary artery without angina pectoris; I25.10 - Atherosclerotic heart disease of [place] coronary artery without angina pectoris; I25.10 - Atherosclerotic heart disease of [place] coronary artery without angina pectoris (3) Diabetes mellitus Code(s): E11.9 - TYPE 2 DIABETES MELLITUS WITHOUT COMPLICATIONS Qualifiers: Diabetes mellitus type: type 2 Diabetes mellitus complication status: with kidney complications Diabetes mellitus complication detail: with chronic kidney disease Diabetes mellitus termination clerk insulin use: with usp use Chronic kidney disease stage: on chronic dialysis Qualified Code(s): E11.22 - Type 2 diabetes mellitus with diabetic chronic kidney disease ; E11.22 - Type 2 diabetes mellitus with diabetic chronic kidney disease; E11.22 - Type 2 diabetes mellitus with diabetic chronic kidney disease; E11.22 - Type 2 diabetes mellitus with diabetic chronic kidney disease; E11.22 - Type 2 diabetes mellitus with diabetic chronic kidney disease; N18.1 - Chronic kidney disease, stage 1; N18.1 - Chronic kidney disease, stage 1; Z79.4 - termite helper (current) use of insulin; Z79.4 - group home (current) use of insulin; Z79.4 - termite helper (current) use of insulin; Z79.4 - termite helper (current) use of insulin (4) HTN (hypertension) Code(s): I10 - ESSENTIAL (PRIMARY) HYPERTENSION Qualifiers: Hypertension type: essential hypertension Qualified Code(s): I10 - Essential (primary) hypertension; I10 - Essential (primary) hypertension; I10 - Essential (primary) hypertension (5) Hypothyroidism Code(s): E03.9 - HYPOTHYROIDISM, UNSPECIFIED Qualifiers: Hypothyroidism type: acquired Qualified Code(s): E03.9 - Hypothyroidism, unspecified; E03.9 - Hypothyroidism, unspecified; E03.9 - Hypothyroidism, unspecified (6) ICD (implantable cardioverter-defibrillator) discharge Code(s): Z45.02 - ENCNTR FOR ADJUST AND MGMT OF AUTOMATIC IMPLNTBL CARD DEFIB (7) Atrial fibrillation Code(s): I48.91 - UNSPECIFIED ATRIAL FIBRILLATION Qualifiers: Atrial fibrillation type: persistent Qualified Code(s): I48.1 - Persistent atrial fibrillation; I48.1 - Persistent atrial fibrillation; I48.1 - Persistent atrial fibrillation; I48.1 - Persistent atrial fibrillation (8) Cirrhosis Code(s): K74.60 - UNSPECIFIED CIRRHOSIS OF LIVER Qualifiers: Hepatic cirrhosis type: unspecified hepatic cirrhosis Ascites presence : with ascites Qualified Code(s): K74.60 - Unspecified cirrhosis of liver ; K74.60 - Unspecified cirrhosis of liver; K74.60 - Unspecified cirrhosis of liver (9) Congestive heart failure Code(s): I50.9 - HEART FAILURE, UNSPECIFIED Qualifiers: Congestive heart failure type: systolic Congestive heart failure chronicity: chronic Qualified Code(s): I50.22 - Chronic systolic ( congestive) heart failure; I50.22 - Chronic systolic (congestive) heart failure ; I50.22 - Chronic systolic (congestive) heart failure; I50.22 - Chronic systolic (congestive) heart failure (10) Pleural effusion Code(s): J90 - PLEURAL EFFUSION, NOT ELSEWHERE CLASSIFIED (11) S/P CABG (coronary artery bypass graft) Code(s): Z95.1 - PRESENCE OF AORTOCORONARY BYPASS GRAFT
[2017-05-06] MEDS ORDERED: PT OWN MED DRAWER 7, Y5N ONE ×3 (10:02→21:15)
[2017-05-06] MEDS: SUCRALFATE 1 GM TABLET (FP) PO SCH ×2 (10:15→22:14)
[2017-05-06] MEDS: AMIODARONE HCL 200 MG TABLET (FP) PO SCH (10:15)
[2017-05-06 11:48] LABS: ANISOCYTOSIS 2+; MACROCYTOSIS 3+
--- NOTE | 2017-05-06 14:43 | PN ---
Progress Note, Physician Chief Complaint: Feels better - Current Medication List Current Medications: Active Medications Acetaminophen (Tylenol -) 325 mg PO BID PRN Last Admin: 05/06/17 14:01 Dose: 325 mg Amiodarone HCl (Cordarone -) 100 mg PO DAILY [facility] Last Admin: 05/06/17 10:15 Dose: 100 mg Insulin Aspart (Novolog Vial Sliding Scale -) 1 vial SQ BIDAC [facility] PRN Reason: Protocol Last Admin: 05/06/17 06:01 Dose: 4 units Levothyroxine Sodium (Synthroid -) 75 mcg PO DAILY@0700 [facility] Last Admin: 05/06/17 06:01 Dose: 75 mcg Midodrine (Proamatine -) 10 mg PO DAILY@0600 [facility] Last Admin: 05/06/17 06:01 Dose: 10 mg Oxycodone HCl (Roxicodone -) 10 mg PO BID PRN PRN Reason: BACK PAIN Last Admin: 05/06/17 13:59 Dose: 10 mg Sevelamer Carbonate (Renvela -) 800 mg PO TIDCM [facility] Last Admin: 05/06/17 14:05 Dose: 800 mg Sodium Polystyrene Sulfonate (Kayexalate -) 15 gm PO Q2D [facility] Last Admin: 05/05/17 10:45 Dose: 15 gm Sucralfate (Carafate -) 1 gm PO BID [facility] Last Admin: 05/06/17 10:15 Dose: 1 gm Warfarin Sodium (Coumadin -) 3 mg PO DAILY@1800 [facility] Last Admin: 05/05/17 18:00 Dose: 3 mg - Objective Vital Signs: Vital Signs Temperature 98.1 F 05/06/17 10:00 Pulse Rate 61 05/06/17 10:00 Respiratory Rate 20 05/06/17 10:00 Blood Pressure 96/39 05/06/17 10:00 O2 Sat by Pulse Oximetry (%) 100 05/06/17 09:00 Constitutional: Yes: No Distress Neck: Yes: Supple Cardiovascular: Yes: Regular Rate and Rhythm, S1, S2 Respiratory: Yes: Regular, CTA Bilaterally Gastrointestinal: Yes: Normal Bowel Sounds, Soft Neurological: Yes: Alert, Oriented. No: Loss of Sensation ...Motor Strength: WNL Labs: CBC, BMP 05/06/17 05:05 05/06/17 05:05 INR, PTT INR 1.21 (0.82-1.09) H 05/06/17 05:05 Problem List - Problems (1) HTN (hypertension) Assessment/Plan: BP improving Code(s): I10 - ESSENTIAL (PRIMARY) HYPERTENSION Qualifiers: Hypertension type: essential hypertension Qualified Code(s): I10 - Essential (primary) hypertension; I10 - Essential (primary) hypertension; I10 - Essential (primary) hypertension (2) ESRD (end stage renal disease) Assessment/Plan: HD Sunday as per renal Code(s): N18.6 - END STAGE RENAL DISEASE
[2017-05-06] MEDS: WARFARIN NA 3 MG TABLET PO SCH (17:42)
[2017-05-07] MEDS: oxyCODONE HCL 5 MG TABLET PO PRN ×2 (05:23→16:11)
[2017-05-07] MEDS: MIDODRINE HCL 5 MG TABLET PO SCH (05:25)
[2017-05-07] MEDS: ACETAMINOPHEN 325 MG TABLET (FP) PO PRN ×2 (05:31→16:12)
[2017-05-07] MEDS ORDERED: INSULIN (NOVOLOG) ASPART 100 UNITS/ML 10ML VIAL ONE (05:42)
[2017-05-07 06:16] LABS: EOSINOPHIL 3.7 % (0-4.5); MCH 27.9 pg (25.7-33.7); MCHC 30.9 g/dl (32.0-35.9); MEAN CELL VOLUME 90.2 fl (80-96); MEAN PLT VOLUME 9.1 fl (7.5-11.1); NEUTROPHILS 78.7 % (42.8-82.8); PLATELET COUNT 74 K/MM3 (134-434); RDW 21.2 % (11.9-15.9); WHITE BLOOD COUNT 5.5 K/mm3 (4.0-10.0)
[2017-05-07 06:25] LABS: INR 1.21 (0.82-1.09); PROTHROMBIN TIME (PATIENT) 13.7 SEC (9.98-11.88)
[2017-05-07 06:46] LABS: ALBUMIN 2.9 g/dl (3.4-5.0); ANION GAP 14 (8-16); BILIRUBIN,TOTAL 0.6 mg/dL (0.2-1.0); CALCIUM 8.1 mg/dL (8.5-10.1); CO2 28 mmol/L (21-32); CREATININE 6.9 mg/dL (0.7-1.3); GLUCOSE,RANDOM 214 mg/dL (74-106); SGOT/AST 49 U/L (15-37); SGPT/ALT 53 U/L (12-78); TOT PROT 7.1 g/dl (6.4-8.2)
[2017-05-07 06:47] LABS: ALK PHOS 116 U/L (45-117)
[2017-05-07] MEDS: LEVOTHYROXINE NA 75 MCG TABLET (FP) PO SCH (06:55)
[2017-05-07] MEDS: INSULIN SLIDING SCALE (NOVOLOG) 1 VIAL SQ SCH ×2 (06:57→17:39)
[2017-05-07] MEDS: SEVELAMER CARBONATE 800 MG TAB (FP) PO SCH ×3 (08:00→18:17)
--- NOTE | 2017-05-07 09:01 | PN ---
Progress Note (short form) - Note Progress Note: RENAL rt arm pain weight up chest clear abd distended ext no edema RT arm pain recent post op Desats off NC o2 Will UF today 3 hr target 3.5 kg epo 20k all labs noted HD in am Surg fup case d/w nurse
--- NOTE | 2017-05-07 09:41 | PN ---
Progress Note (short form) - Note Progress Note: admitted for hypotension, lethargy and hyperkalemia after fistula placement CBC, BMP 05/07/17 05:00 05/07/17 05:00 Vital Signs Period Temp Pulse Resp BP Sys/Lopez Pulse Ox Last 24 Hr 97.2 F-98.1 F 60-67 16-20 84-112/33-79 100-100 S1S2 RRR lungs cta, decreased BS at right base ascites, abdominal distension no edema awake, alert oriented x3 Imp hypotension-chronic with ischemic cardiomyopathy aicd afib esrd dm pvd hypothyroidism cirrhosis/ascited due to chronic systolic heart failure plan hd today add lactulose increase warfarin pt eval transfer to medical floor Problem List - Problems (1) Acute hyperkalemia Code(s): E87.5 - HYPERKALEMIA (2) Coronary artery disease Code(s): I25.10 - ATHSCL HEART DISEASE OF [place] CORONARY ARTERY W/O ANG PCTRS Qualifiers: Coronary Disease-Associated Artery/Lesion type: [place] artery [place] vs. transplanted heart: [place] heart Associated angina: without angina Qualified Code(s): I25.10 - Atherosclerotic heart disease of [place] coronary artery without angina pectoris; I25.10 - Atherosclerotic heart disease of [place] coronary artery without angina pectoris; I25.10 - Atherosclerotic heart disease of [place] coronary artery without angina pectoris (3) HTN (hypertension) Code(s): I10 - ESSENTIAL (PRIMARY) HYPERTENSION Qualifiers: Hypertension type: essential hypertension Qualified Code(s): I10 - Essential (primary) hypertension; I10 - Essential (primary) hypertension; I10 - Essential (primary) hypertension (4) Hypothyroidism Code(s): E03.9 - HYPOTHYROIDISM, UNSPECIFIED Qualifiers: Hypothyroidism type: acquired Qualified Code(s): E03.9 - Hypothyroidism, unspecified; E03.9 - Hypothyroidism, unspecified; E03.9 - Hypothyroidism, unspecified (5) ICD (implantable cardioverter-defibrillator) discharge Code(s): Z45.02 - ENCNTR FOR ADJUST AND MGMT OF AUTOMATIC IMPLNTBL CARD DEFIB (6) Ischemic dilated cardiomyopathy Code(s): I25.5 - ISCHEMIC CARDIOMYOPATHY (7) Diabetes mellitus Code(s): E11.9 - TYPE 2 DIABETES MELLITUS WITHOUT COMPLICATIONS Qualifiers: Diabetes mellitus type: type 2 Diabetes mellitus complication status: with kidney complications Diabetes mellitus complication detail: with chronic kidney disease Diabetes mellitus joint terminal attack controller insulin use: with senior care use Chronic kidney disease stage: on chronic dialysis Qualified Code(s): E11.22 - Type 2 diabetes mellitus with diabetic chronic kidney disease ; E11.22 - Type 2 diabetes mellitus with diabetic chronic kidney disease; E11.22 - Type 2 diabetes mellitus with diabetic chronic kidney disease; E11.22 - Type 2 diabetes mellitus with diabetic chronic kidney disease; E11.22 - Type 2 diabetes mellitus with diabetic chronic kidney disease; N18.1 - Chronic kidney disease, stage 1; N18.1 - Chronic kidney disease, stage 1; Z79.4 - alf (current) use of insulin; Z79.4 - alf (current) use of insulin; Z79.4 - alf (current) use of insulin; Z79.4 - truck terminal manager (current) use of insulin
[2017-05-07] MEDS ORDERED: LACTULOSE 20 GM/30 ML UDC (FOR ORAL USE ONLY) PO SCH (10:00)
[2017-05-07] MEDS ORDERED: EPOETIN ALFA 20,000 UNIT/1 ML VIAL IVPUSH ONE (10:00)
[2017-05-07] MEDS ORDERED: PT OWN MED DRAWER 7, Y5N ONE (11:27)
--- NOTE | 2017-05-07 13:20 | PN ---
Teaching Attending Note Name of Resident: Harjinder Richard ATTENDING PHYSICIAN STATEMENT I saw and evaluated the patient. I reviewed the resident's note and discussed the case with the resident. I agree with the resident's findings and plan as documented. SUBJECTIVE: Patient seen and examined in the ICU. Awake and alert. Remains off Dopamine. No CP or SOB. Body pain is better with Percocet. Intake & Output 05/04/17 05/05/17 05/06/17 05/07/17 23:59 23:59 23:59 23:59 Intake Total 607 1046 700 240 Output Total 0 Balance 607 1046 700 240 Weight 166 lb 14.4 oz 167 lb 169 lb 1 oz Last Vital Signs Temp Pulse Resp BP Pulse Ox 98.4 F 66 18 103/43 98 05/07/17 12:10 05/07/17 13:15 05/07/17 13:15 05/07/17 13:15 05/07/17 09:00 Active Medications Acetaminophen (Tylenol -) 325 mg PO BID PRN Last Admin: 05/07/17 05:31 Dose: 325 mg Amiodarone HCl (Cordarone -) 100 mg PO DAILY [facility] Last Admin: 05/06/17 10:15 Dose: 100 mg Insulin Aspart (Novolog Vial Sliding Scale -) 1 vial SQ BIDAC [facility] PRN Reason: Protocol Last Admin: 05/07/17 06:57 Dose: 6 units Lactulose (Cephulac (Oral Use)) 20 gm PO DAILY [facility] Levothyroxine Sodium (Synthroid -) 75 mcg PO DAILY@0700 [facility] Last Admin: 05/07/17 06:55 Dose: 75 mcg Midodrine (Proamatine -) 10 mg PO DAILY@0600 [facility] Last Admin: 05/07/17 05:25 Dose: 10 mg Oxycodone HCl (Roxicodone -) 10 mg PO BID PRN PRN Reason: BACK PAIN Last Admin: 05/07/17 05:23 Dose: 10 mg Sevelamer Carbonate (Renvela -) 800 mg PO TIDCM [facility] Last Admin: 05/07/17 11:35 Dose: 800 mg Sodium Polystyrene Sulfonate (Kayexalate -) 15 gm PO Q2D [facility] Last Admin: 05/05/17 10:45 Dose: 15 gm Sucralfate (Carafate -) 1 gm PO BID [facility] Last Admin: 05/06/17 22:14 Dose: 1 gm Warfarin Sodium (Coumadin -) 4 mg PO DAILY@1800 RACHEL Constitutional: Yes: Well Nourished, No Distress Eyes: Yes: Conjunctiva Clear, EOM Intact HENT: Yes: Atraumatic, Normocephalic Neck: Yes: Supple, Trachea Midline Cardiovascular: Yes: Regular Rate and Rhythm Respiratory: Yes: On Nasal O2, Rhonchi. No: Accessory Muscle Use, Rales, Stridor, Tachypnea, Wheezes Gastrointestinal: Yes: WNL ...Rectal Exam: Yes: Deferred Musculoskeletal: Yes: Other (post operative changes RUE) Edema: No Peripheral Pulses WNL: Yes Wound/Incision: Yes: Clean/Dry, Well Approximated, [place] Intact Neurological: Yes: Alert, Oriented ...Motor Strength: WNL Psychiatric: Yes: WNL, Alert, Oriented Labs: Laboratory Results - last 24 hr 05/05/17 05/06/17 05/07/17 17:38 17:00 05:00 WBC 5.5 RBC 3.26 L Hgb 9.1 L Hct 29.4 L MCV 90.2 MCH 27.9 MCHC 30.9 L RDW 21.2 H Plt Count 74 L MPV 9.1 Neutrophils % 78.7 Lymphocytes % 6.2 L D Monocytes % 9.4 Eosinophils % 3.7 Basophils % 2.0 PT with INR INR Sodium Potassium Chloride Carbon Dioxide Anion Gap BUN Creatinine Creat Clearance w eGFR POC Glucometer 226.28476 [phone] Random Glucose Calcium Total Bilirubin AST ALT Alkaline Phosphatase Total Protein Albumin 05/07/17 05/07/17 05/07/17 05:00 05:00 05:15 WBC RBC Hgb Hct MCV MCH MCHC RDW Plt Count MPV Neutrophils % Lymphocytes % Monocytes % Eosinophils % Basophils % PT with INR 13.70 H INR 1.21 H Sodium 136 Potassium 4.3 Chloride 94 L Carbon Dioxide 28 Anion Gap 14 BUN 74 H D Creatinine 6.9 H D Creat Clearance w eGFR 8.15 POC Glucometer 255.85158 Random Glucose 214 H Calcium 8.1 L Total Bilirubin 0.6 AST 49 H D ALT 53 Alkaline Phosphatase 116 Total Protein 7.1 Albumin 2.9 L Problem List - Problems (1) Atrial fibrillation with rapid ventricular response Code(s): I48.91 - UNSPECIFIED ATRIAL FIBRILLATION (2) Coronary artery disease Code(s): I25.10 - ATHSCL HEART DISEASE OF [place] CORONARY ARTERY W/O ANG PCTRS Qualifiers: Coronary Disease-Associated Artery/Lesion type: [place] artery [place] vs. transplanted heart: [place] heart Associated angina: without angina Qualified Code(s): I25.10 - Atherosclerotic heart disease of [place] coronary artery without angina pectoris; I25.10 - Atherosclerotic heart disease of [place] coronary artery without angina pectoris; I25.10 - Atherosclerotic heart disease of [place] coronary artery without angina pectoris (3) Diabetes mellitus Code(s): E11.9 - TYPE 2 DIABETES MELLITUS WITHOUT COMPLICATIONS Qualifiers: Diabetes mellitus type: type 2 Diabetes mellitus complication status: with kidney complications Diabetes mellitus complication detail: with chronic kidney disease Diabetes mellitus termination clerk insulin use: with termination clerk use Chronic kidney disease stage: on chronic dialysis Qualified Code(s): E11.22 - Type 2 diabetes mellitus with diabetic chronic kidney disease ; E11.22 - Type 2 diabetes mellitus with diabetic chronic kidney disease; E11.22 - Type 2 diabetes mellitus with diabetic chronic kidney disease; E11.22 - Type 2 diabetes mellitus with diabetic chronic kidney disease; E11.22 - Type 2 diabetes mellitus with diabetic chronic kidney disease; N18.1 - Chronic kidney disease, stage 1; N18.1 - Chronic kidney disease, stage 1; Z79.4 - jail (current) use of insulin; Z79.4 - jail (current) use of insulin; Z79.4 - rn long term care (current) use of insulin; Z79.4 - rn long term care (current) use of insulin (4) HTN (hypertension) Code(s): I10 - ESSENTIAL (PRIMARY) HYPERTENSION Qualifiers: Hypertension type: essential hypertension Qualified Code(s): I10 - Essential (primary) hypertension; I10 - Essential (primary) hypertension; I10 - Essential (primary) hypertension (5) Hypothyroidism Code(s): E03.9 - HYPOTHYROIDISM, UNSPECIFIED Qualifiers: Hypothyroidism type: acquired Qualified Code(s): E03.9 - Hypothyroidism, unspecified; E03.9 - Hypothyroidism, unspecified; E03.9 - Hypothyroidism, unspecified (6) ICD (implantable cardioverter-defibrillator) discharge Code(s): Z45.02 - ENCNTR FOR ADJUST AND MGMT OF AUTOMATIC IMPLNTBL CARD DEFIB (7) Atrial fibrillation Code(s): I48.91 - UNSPECIFIED ATRIAL FIBRILLATION Qualifiers: Atrial fibrillation type: persistent Qualified Code(s): I48.1 - Persistent atrial fibrillation; I48.1 - Persistent atrial fibrillation; I48.1 - Persistent atrial fibrillation; I48.1 - Persistent atrial fibrillation (8) Cirrhosis Code(s): K74.60 - UNSPECIFIED CIRRHOSIS OF LIVER Qualifiers: Hepatic cirrhosis type: unspecified hepatic cirrhosis Ascites presence : with ascites Qualified Code(s): K74.60 - Unspecified cirrhosis of liver ; K74.60 - Unspecified cirrhosis of liver; K74.60 - Unspecified cirrhosis of liver (9) Congestive heart failure Code(s): I50.9 - HEART FAILURE, UNSPECIFIED Qualifiers: Congestive heart failure type: systolic Congestive heart failure chronicity: chronic Qualified Code(s): I50.22 - Chronic systolic ( congestive) heart failure; I50.22 - Chronic systolic (congestive) heart failure ; I50.22 - Chronic systolic (congestive) heart failure; I50.22 - Chronic systolic (congestive) heart failure (10) Pleural effusion Code(s): J90 - PLEURAL EFFUSION, NOT ELSEWHERE CLASSIFIED (11) S/P CABG (coronary artery bypass graft) Code(s): Z95.1 - PRESENCE OF AORTOCORONARY BYPASS GRAFT Assessment/Plan Midodrine 10mg PO Oxycodone PRN HD per Renal O2 as needed Floor Dr Fuller Problem List - Problems (1) Atrial fibrillation with rapid ventricular response Code(s): I48.91 - UNSPECIFIED ATRIAL FIBRILLATION (2) Coronary artery disease Code(s): I25.10 - ATHSCL HEART DISEASE OF [place] CORONARY ARTERY W/O ANG PCTRS Qualifiers: Coronary Disease-Associated Artery/Lesion type: [place] artery [place] vs. transplanted heart: [place] heart Associated angina: without angina Qualified Code(s): I25.10 - Atherosclerotic heart disease of [place] coronary artery without angina pectoris; I25.10 - Atherosclerotic heart disease of [place] coronary artery without angina pectoris; I25.10 - Atherosclerotic heart disease of [place] coronary artery without angina pectoris (3) Diabetes mellitus Code(s): E11.9 - TYPE 2 DIABETES MELLITUS WITHOUT COMPLICATIONS Qualifiers: Diabetes mellitus type: type 2 Diabetes mellitus complication status: with kidney complications Diabetes mellitus complication detail: with chronic kidney disease Diabetes mellitus half-way insulin use: with termination clerk use Chronic kidney disease stage: on chronic dialysis Qualified Code(s): E11.22 - Type 2 diabetes mellitus with diabetic chronic kidney disease ; E11.22 - Type 2 diabetes mellitus with diabetic chronic kidney disease; E11.22 - Type 2 diabetes mellitus with diabetic chronic kidney disease; E11.22 - Type 2 diabetes mellitus with diabetic chronic kidney disease; E11.22 - Type 2 diabetes mellitus with diabetic chronic kidney disease; N18.1 - Chronic kidney disease, stage 1; N18.1 - Chronic kidney disease, stage 1; Z79.4 - jail (current) use of insulin; Z79.4 - jail (current) use of insulin; Z79.4 - jail (current) use of insulin; Z79.4 - rn long term care (current) use of insulin (4) HTN (hypertension) Code(s): I10 - ESSENTIAL (PRIMARY) HYPERTENSION Qualifiers: Hypertension type: essential hypertension Qualified Code(s): I10 - Essential (primary) hypertension; I10 - Essential (primary) hypertension; I10 - Essential (primary) hypertension (5) Hypothyroidism Code(s): E03.9 - HYPOTHYROIDISM, UNSPECIFIED Qualifiers: Hypothyroidism type: acquired Qualified Code(s): E03.9 - Hypothyroidism, unspecified; E03.9 - Hypothyroidism, unspecified; E03.9 - Hypothyroidism, unspecified (6) ICD (implantable cardioverter-defibrillator) discharge Code(s): Z45.02 - ENCNTR FOR ADJUST AND MGMT OF AUTOMATIC IMPLNTBL CARD DEFIB (7) Atrial fibrillation Code(s): I48.91 - UNSPECIFIED ATRIAL FIBRILLATION Qualifiers: Atrial fibrillation type: persistent Qualified Code(s): I48.1 - Persistent atrial fibrillation; I48.1 - Persistent atrial fibrillation; I48.1 - Persistent atrial fibrillation; I48.1 - Persistent atrial fibrillation (8) Cirrhosis Code(s): K74.60 - UNSPECIFIED CIRRHOSIS OF LIVER Qualifiers: Hepatic cirrhosis type: unspecified hepatic cirrhosis Ascites presence : with ascites Qualified Code(s): K74.60 - Unspecified cirrhosis of liver ; K74.60 - Unspecified cirrhosis of liver; K74.60 - Unspecified cirrhosis of liver (9) Congestive heart failure Code(s): I50.9 - HEART FAILURE, UNSPECIFIED Qualifiers: Congestive heart failure type: systolic Congestive heart failure chronicity: chronic Qualified Code(s): I50.22 - Chronic systolic ( congestive) heart failure; I50.22 - Chronic systolic (congestive) heart failure ; I50.22 - Chronic systolic (congestive) heart failure; I50.22 - Chronic systolic (congestive) heart failure (10) Pleural effusion Code(s): J90 - PLEURAL EFFUSION, NOT ELSEWHERE CLASSIFIED (11) S/P CABG (coronary artery bypass graft) Code(s): Z95.1 - PRESENCE OF AORTOCORONARY BYPASS GRAFT
[2017-05-07] MEDS ORDERED: HYDROmorphone HCL CARPU-JECT 1 MG/1 ML DISP.SYRIN IVPB PRN (15:59)
--- NOTE | 2017-05-07 16:05 | PN ---
Progress Note (short form) - Note Progress Note: Complains of pain in right upper arm at site of graft. Denies hand pain or numbness. Wounds clean and dry, small amount of edema around graft. Hand warm, motor and sensory exam non-focal. Imp: Post-op pain seems excessive at this point. No evidence for vascular steal. Plan: Increase analgesia as needed.
[2017-05-07] MEDS: SUCRALFATE 1 GM TABLET (FP) PO SCH ×2 (16:17→22:35)
[2017-05-07] MEDS: AMIODARONE HCL 200 MG TABLET (FP) PO SCH (16:17)
[2017-05-07] MEDS: SODIUM POLYSTYRENE SULFONATE 15 GM/60 ML BOTTLE PO SCH (16:22)
[2017-05-07] MEDS ORDERED: WARFARIN NA 2 MG TABLET (UD) PO SCH (18:00)
[2017-05-07] MEDS ORDERED: EPOETIN ALFA 20,000 UNIT/1 ML VIAL SQ ONE (18:14)
[2017-05-07] MEDS ORDERED: oxyCODONE HCL 5 MG TABLET PO PRN (18:14)
[2017-05-07] MEDS: WARFARIN NA 2 MG TABLET (UD) PO SCH (22:34)
[2017-05-08] MEDS: MIDODRINE HCL 5 MG TABLET PO SCH (06:19)
[2017-05-08] MEDS: INSULIN SLIDING SCALE (NOVOLOG) 1 VIAL SQ SCH ×2 (06:21→17:14)
[2017-05-08] MEDS: LEVOTHYROXINE NA 75 MCG TABLET (FP) PO SCH (06:22)
[2017-05-08] MEDS: SEVELAMER CARBONATE 800 MG TAB (FP) PO SCH ×3 (08:53→17:52)
[2017-05-08] MEDS: AMIODARONE HCL 200 MG TABLET (FP) PO SCH (09:06)
[2017-05-08] MEDS: LACTULOSE 20 GM/30 ML UDC (FOR ORAL USE ONLY) PO SCH (09:06)
--- NOTE | 2017-05-08 09:40 | PN ---
Progress Note (short form) - Note Progress Note: S1S2 RRR lungs cta, decreased BS at right base ascites, abdominal distension no edema awake, alert oriented x3 Imp hypotension-chronic with ischemic cardiomyopathy aicd afib esrd dm pvd hypothyroidism cirrhosis/ascited due to chronic systolic heart failure plan hd as per renal pt eval respiratory eval for home o2 Problem List - Problems (1) Acute hyperkalemia Code(s): E87.5 - HYPERKALEMIA (2) Coronary artery disease Code(s): I25.10 - ATHSCL HEART DISEASE OF [place] CORONARY ARTERY W/O ANG PCTRS Qualifiers: Coronary Disease-Associated Artery/Lesion type: [place] artery [place] vs. transplanted heart: [place] heart Associated angina: without angina Qualified Code(s): I25.10 - Atherosclerotic heart disease of [place] coronary artery without angina pectoris; I25.10 - Atherosclerotic heart disease of [place] coronary artery without angina pectoris; I25.10 - Atherosclerotic heart disease of [place] coronary artery without angina pectoris (3) HTN (hypertension) Code(s): I10 - ESSENTIAL (PRIMARY) HYPERTENSION Qualifiers: Hypertension type: essential hypertension Qualified Code(s): I10 - Essential (primary) hypertension; I10 - Essential (primary) hypertension; I10 - Essential (primary) hypertension (4) Hypothyroidism Code(s): E03.9 - HYPOTHYROIDISM, UNSPECIFIED Qualifiers: Hypothyroidism type: acquired Qualified Code(s): E03.9 - Hypothyroidism, unspecified; E03.9 - Hypothyroidism, unspecified; E03.9 - Hypothyroidism, unspecified (5) ICD (implantable cardioverter-defibrillator) discharge Code(s): Z45.02 - ENCNTR FOR ADJUST AND MGMT OF AUTOMATIC IMPLNTBL CARD DEFIB (6) Ischemic dilated cardiomyopathy Code(s): I25.5 - ISCHEMIC CARDIOMYOPATHY (7) Diabetes mellitus Code(s): E11.9 - TYPE 2 DIABETES MELLITUS WITHOUT COMPLICATIONS Qualifiers: Diabetes mellitus type: type 2 Diabetes mellitus complication status: with kidney complications Diabetes mellitus complication detail: with chronic kidney disease Diabetes mellitus extermination supervisor insulin use: with correction use Chronic kidney disease stage: on chronic dialysis Qualified Code(s): E11.22 - Type 2 diabetes mellitus with diabetic chronic kidney disease ; E11.22 - Type 2 diabetes mellitus with diabetic chronic kidney disease; E11.22 - Type 2 diabetes mellitus with diabetic chronic kidney disease; E11.22 - Type 2 diabetes mellitus with diabetic chronic kidney disease; E11.22 - Type 2 diabetes mellitus with diabetic chronic kidney disease; N18.1 - Chronic kidney disease, stage 1; N18.1 - Chronic kidney disease, stage 1; Z79.4 - tank terminal gauger (current) use of insulin; Z79.4 - retirement (current) use of insulin; Z79.4 - tank terminal gauger (current) use of insulin; Z79.4 - retirement (current) use of insulin
[2017-05-08] MEDS: ACETAMINOPHEN 325 MG TABLET (FP) PO PRN ×2 (10:25→22:02)
[2017-05-08] MEDS: oxyCODONE HCL 5 MG TABLET PO PRN ×2 (10:26→22:02)
[2017-05-08] MEDS: SUCRALFATE 1 GM TABLET (FP) PO SCH ×2 (15:16→21:59)
[2017-05-08] MEDS: WARFARIN NA 2 MG TABLET (UD) PO SCH (17:52)
[2017-05-08] MEDS: INSULIN DETEMIR 100 UNITS/ML MDV SQ SCH (22:00)
[2017-05-09] MEDS: MIDODRINE HCL 5 MG TABLET PO SCH (06:04)
[2017-05-09] MEDS: INSULIN SLIDING SCALE (NOVOLOG) 1 VIAL SQ SCH ×2 (06:04→17:44)
[2017-05-09] MEDS: oxyCODONE HCL 5 MG TABLET PO PRN ×2 (06:05→17:11)
[2017-05-09] MEDS: LEVOTHYROXINE NA 75 MCG TABLET (FP) PO SCH (06:05)
[2017-05-09] MEDS: ACETAMINOPHEN 325 MG TABLET (FP) PO PRN ×2 (06:06→17:10)
[2017-05-09] MEDS: SEVELAMER CARBONATE 800 MG TAB (FP) PO SCH ×3 (08:25→17:44)
--- NOTE | 2017-05-09 08:47 | PN ---
Progress Note (short form) - Note Progress Note: RENAL RT arm pain better weight down Dialyzed yesterday 3 kg removed chest clear abd distended ext no edema RT arm pain recent post op Check RA sats labs noted DC home HD librado Takes mododrine 5 in am and 10 q hs advised to limit weight gains must take kayexalate at least twice a week
--- NOTE | 2017-05-09 09:00 | DS ---
Physical Examination Vital Signs: Vital Signs Temperature 98.9 F 05/09/17 06:00 Pulse Rate 67 05/09/17 06:00 Respiratory Rate 18 05/09/17 06:00 Blood Pressure 82/42 05/09/17 06:00 O2 Sat by Pulse Oximetry (%) 100 05/08/17 20:51 Constitutional: Yes: Calm Eyes: Yes: EOM Intact HENT: Yes: Normocephalic Cardiovascular: Yes: Pulse Irregular (decreased bs at right base) Gastrointestinal: Yes: Soft, Ascites Extremities: Yes: WNL Edema: No Neurological: Yes: WNL Labs: CBC, BMP 05/07/17 05:00 05/07/17 05:00 Discharge Summary Reason For Visit: HYPERKALEMIA Current Active Problems Acute hyperkalemia (Acute) Atrial fibrillation with rapid ventricular response (Acute) Coronary artery disease (Acute) Demand ischemia (Acute) Diabetes mellitus (Acute) HTN (hypertension) (Acute) Hypothyroidism (Acute) ICD (implantable cardioverter-defibrillator) discharge (Acute) Ischemic dilated cardiomyopathy (Acute) Precordial chest pain (Acute) S/P coronary artery stent placement (Acute) Systolic and diastolic CHF, acute on chronic (Acute) Ventricular tachycardia (Acute) Hospital Course: admitted with lethargy and hypotensino the night postop av graft placement received one dose iv vanco and required transient dopamine support received emergent HD for hyperkalemia also blood cultures remained negative, dopamine was tapered off episode was likely due to cardiac decompensation after surgery was seen by critical care/id/renal and vascular bp is low at baseline, ambulating without assist medically stable to dc home with close outpt f/up - Instructions Diet, Activity, Other Instructions: dr stewart [id number] warfarin 3 mg alternating with 5 mg every other day midodrine 5 mg daily and 10 mg extra right before each dialysis Referrals: Mandeep Sutton MD [Primary Care Provider] - - Home Medications Comprehensive Discharge Medication List: Ambulatory Orders Sucralfate [Carafate -] 1 gm PO BID 12/19/16 Levothyroxine [Synthroid -] 75 mcg PO DAILY@0700 tablet 12/24/16 Midodrine HCl [Proamatine -] 10 mg PO DAILY tablet 12/24/16 Sodium Polystyrene Sulfonate [Kayexalate -] 15 gm PO Q2D #1 bottle 07/20/17 Warfarin Sodium 4 mg PO DAILY #30 tablet 01/25/17 Polyethylene Glycol 3350 [Miralax 255 gm Btl -] 17 gm PO DAILY #1 bottle Insulin Glargine,Hum.rec.anlog [Lantus (10mL VIAL) -] 15 units SQ DAILY Amiodarone HCl [Cordarone -] 100 mg PO DAILY 05/01/17 Sevelamer HCl [Renagel] 800 mg PO TID 05/01/17 Lactulose (Oral Use) [Cephulac -] 20 gm PO DAILY #1 bottle 05/09/17 Oxycodone HCl/Acetaminophen [Percocet 5-325 mg Tablet] 1 tab PO BID #10 tab MDD 4 05/09/17
[2017-05-09] MEDS ORDERED: SODIUM POLYSTYRENE SULFONATE 15 GM/60 ML BOTTLE PO SCH (10:00)
[2017-05-09] MEDS: SUCRALFATE 1 GM TABLET (FP) PO SCH ×2 (10:56→23:07)
[2017-05-09] MEDS: AMIODARONE HCL 200 MG TABLET (FP) PO SCH (10:56)
[2017-05-09] MEDS: LACTULOSE 20 GM/30 ML UDC (FOR ORAL USE ONLY) PO SCH (10:57)
[2017-05-09] MEDS: WARFARIN NA 2 MG TABLET (UD) PO SCH (17:11)
[2017-05-09] MEDS ORDERED: INSULIN (NOVOLOG) ASPART 100 UNITS/ML 10ML VIAL ONE (17:41)
[2017-05-09] MEDS: INSULIN DETEMIR 100 UNITS/ML MDV SQ SCH (23:07)
[2017-05-10] MEDS: oxyCODONE HCL 5 MG TABLET PO PRN (06:07)
[2017-05-10] MEDS: MIDODRINE HCL 5 MG TABLET PO SCH (06:08)
[2017-05-10] MEDS: INSULIN SLIDING SCALE (NOVOLOG) 1 VIAL SQ SCH (06:09)
[2017-05-10] MEDS: LEVOTHYROXINE NA 75 MCG TABLET (FP) PO SCH (06:09)
[2017-05-10] MEDS: SEVELAMER CARBONATE 800 MG TAB (FP) PO SCH ×2 (08:15→12:29)
--- NOTE | 2017-05-10 10:06 | PN ---
Progress Note (short form) - Note Progress Note: S1S2 RRR lungs cta, decreased BS at right base ascites, abdominal distension + edema awake, alert oriented x3 Imp hypotension-chronic with ischemic cardiomyopathy aicd afib esrd dm pvd hypothyroidism cirrhosis/ascited due to chronic systolic heart failure plan dc home today hd tonight as outpt home o2 with vns Problem List - Problems (1) Acute hyperkalemia Code(s): E87.5 - HYPERKALEMIA (2) Coronary artery disease Code(s): I25.10 - ATHSCL HEART DISEASE OF [place] CORONARY ARTERY W/O ANG PCTRS Qualifiers: Coronary Disease-Associated Artery/Lesion type: [place] artery [place] vs. transplanted heart: [place] heart Associated angina: without angina Qualified Code(s): I25.10 - Atherosclerotic heart disease of [place] coronary artery without angina pectoris; I25.10 - Atherosclerotic heart disease of [place] coronary artery without angina pectoris; I25.10 - Atherosclerotic heart disease of [place] coronary artery without angina pectoris (3) HTN (hypertension) Code(s): I10 - ESSENTIAL (PRIMARY) HYPERTENSION Qualifiers: Hypertension type: essential hypertension Qualified Code(s): I10 - Essential (primary) hypertension; I10 - Essential (primary) hypertension; I10 - Essential (primary) hypertension (4) Hypothyroidism Code(s): E03.9 - HYPOTHYROIDISM, UNSPECIFIED Qualifiers: Hypothyroidism type: acquired Qualified Code(s): E03.9 - Hypothyroidism, unspecified; E03.9 - Hypothyroidism, unspecified; E03.9 - Hypothyroidism, unspecified (5) ICD (implantable cardioverter-defibrillator) discharge Code(s): Z45.02 - ENCNTR FOR ADJUST AND MGMT OF AUTOMATIC IMPLNTBL CARD DEFIB (6) Ischemic dilated cardiomyopathy Code(s): I25.5 - ISCHEMIC CARDIOMYOPATHY (7) Diabetes mellitus Code(s): E11.9 - TYPE 2 DIABETES MELLITUS WITHOUT COMPLICATIONS Qualifiers: Diabetes mellitus type: type 2 Diabetes mellitus complication status: with kidney complications Diabetes mellitus complication detail: with chronic kidney disease Diabetes mellitus solar sales estimator insulin use: with group home use Chronic kidney disease stage: on chronic dialysis Qualified Code(s): E11.22 - Type 2 diabetes mellitus with diabetic chronic kidney disease ; E11.22 - Type 2 diabetes mellitus with diabetic chronic kidney disease; E11.22 - Type 2 diabetes mellitus with diabetic chronic kidney disease; E11.22 - Type 2 diabetes mellitus with diabetic chronic kidney disease; E11.22 - Type 2 diabetes mellitus with diabetic chronic kidney disease; N18.1 - Chronic kidney disease, stage 1; N18.1 - Chronic kidney disease, stage 1; Z79.4 - [facility] (current) use of insulin; Z79.4 - [facility] (current) use of insulin; Z79.4 - [facility] (current) use of insulin; Z79.4 - solid tire finisher (current) use of insulin
[2017-05-10] MEDS: LACTULOSE 20 GM/30 ML UDC (FOR ORAL USE ONLY) PO SCH (10:31)
[2017-05-10] MEDS: AMIODARONE HCL 200 MG TABLET (FP) PO SCH (10:31)
[2017-05-10] MEDS ORDERED: oxyCODONE HCL 5 MG TABLET PO ONE (10:45)
[2017-05-10] MEDS: SUCRALFATE 1 GM TABLET (FP) PO SCH (12:29)
[2017-05-10 13:20] VITALS: BP 97/43; PULSE 66; TEMP 98.4
== END 2017-05-10 13:37 | disposition home or self-care (01) | DRG 314 ==
LOC: JER 01:34 → JERBED 05:37 → UNDOADMOB 05:57 → JERBED 05:57 → OBSVTOIN 07:30 → JICU 21:06 → J5S 05-07 17:53
PROVIDERS: ADMIT Internal Medicine; ATTEND Internal Medicine
PROC: 5A1D70Z Performance of Urinary Filtration, Intermittent, Less than 6 Hours Per Day (ICD-10-PCS; principal; 2017-05-03)
DX: I95.89 Other hypotension (principal); I50.43 Acute on chronic combined systolic (congestive) and diastolic (congestive) heart failure; I47.2 Ventricular tachycardia; I13.2 Hypertensive heart and chronic kidney disease with heart failure and with stage 5 chronic kidney disease, or end stage renal disease; R18.8 Other ascites; E11.22 Type 2 diabetes mellitus with diabetic chronic kidney disease; N18.6 End stage renal disease; E87.5 Hyperkalemia; G62.9 Polyneuropathy, unspecified; I27.20 Pulmonary hypertension, unspecified; I50.42 Chronic combined systolic (congestive) and diastolic (congestive) heart failure; I42.0 Dilated cardiomyopathy; T82.848A Pain due to vascular prosthetic devices, implants and grafts, initial encounter; K74.60 Unspecified cirrhosis of liver; I48.2 Chronic atrial fibrillation; I25.10 Atherosclerotic heart disease of native coronary artery without angina pectoris; E03.9 Hypothyroidism, unspecified; Z95.1 Presence of aortocoronary bypass graft; Z95.5 Presence of coronary angioplasty implant and graft; I25.5 Ischemic cardiomyopathy; Z79.01 Long term (current) use of anticoagulants; Z79.4 Long term (current) use of insulin; Z99.2 Dependence on renal dialysis; J45.909 Unspecified asthma, uncomplicated; Z86.73 Personal history of transient ischemic attack (TIA), and cerebral infarction without residual deficits; I25.2 Old myocardial infarction; K21.9 Gastro-esophageal reflux disease without esophagitis; E78.5 Hyperlipidemia, unspecified; I45.10 Unspecified right bundle-branch block; I34.0 Nonrheumatic mitral (valve) insufficiency; F41.9 Anxiety disorder, unspecified; Y83.2 Surgical operation with anastomosis, bypass or graft as the cause of abnormal reaction of the patient, or of later complication, without mention of misadventure at the time of the procedure
CPT/HCPCS: 36415; 70450-TC; 71020-TC; 80048; 80053; 82550; 83605; 83690; 83735; 84100; 84132; 84484; 85025; 85610; 85730; 86704; 86706; 86708; 86803; 86850; 86900; 86901; 87040; 87340; 93005; 93010; 94760; 94761; 97116-GP; 97161-GP; 99285-25; G0378; J0885; J1644

== ENCOUNTER 2017-05-15 14:38 | Inpatient (IN) | payer OTHER ==
[2017-05-15] MEDS ORDERED: fentaNYL CITRATE/PF 1,000 MCG/20 ML AMPUL IVPUSH ONE ×4 (15:13→20:45)
[2017-05-15] MEDS ORDERED: SODIUM CHLORIDE 500 ML IV STA (15:13)
[2017-05-15] MEDS ORDERED: ALBUTEROL SO4 0.083% IH SOL 2.5 MG/3 ML VIAL.NEB. NEB ONE (15:24)
[2017-05-15] MEDS ORDERED: SODIUM BICARBONATE 8.4% - 100 ML ONE (15:24)
[2017-05-15] MEDS ORDERED: CALCIUM GLUCONATE 10% - 1,000 MG/10 ML VIAL ONE (15:24)
[2017-05-15] MEDS ORDERED: INSULIN REGULAR HUMAN 100 UNITS/ML *VIAL IVPUSH ONE (15:31)
[2017-05-15] MEDS ORDERED: SODIUM BICARBONATE 8.4% 50 MEQ/50 ML DISP.SYRIN IVPUSH ONE (15:31)
[2017-05-15] MEDS ORDERED: DEXTROSE 50%-WATER - 25 GM/50 ML VIAL IVPUSH ONE (15:31)
[2017-05-15] MEDS ORDERED: CALCIUM GLUCONATE 10% - 1,000 MG/10 ML VIAL IVPUSH ONE (15:31)
--- NOTE | 2017-05-15 15:31 | PDOC ---
History of Present Illness - General Chief Complaint: Pain Stated Complaint: STOMACH PAIN Time Seen by Provider: 05/15/17 15:11 History Source: Family Exam Limitations: Clinical Condition - History of Present Illness Initial Comments: 05/15/17 18:14 Patient is a 62m with PMH of Afib with RVR (on Coumadin) CAD (s/p stent and CABG ), IDDM, Ischemic Dilated Cardiomyopathy, HTN, CHF and ESRD (on HD T, Th, Sat) as well as recent (05/01/17) R AV Fistula placement who presents with vomiting, abdominal pain and altered mental status. Family reports that patient had several episodes of brown vomit. Chart review shows that he was recently admitted with ams, hypotension and hyperkalemia. An infectious source was not found. He was discharged two days ago. He missed his dailysis today. Patient is unable to state a true complaint, and instead complains of pain and points to his abdomen. 05/15/17 18:25 Past History - Past Medical History Allergies/Adverse Reactions: Allergies Allergy/AdvReac Type Severity Reaction Status Date / Time No Known Drug Allergies Allergy Verified 05/15/17 15:16 Home Medications: Ambulatory Orders Sucralfate [Carafate -] 1 gm PO BID 12/19/16 Levothyroxine [Synthroid -] 75 mcg PO DAILY@0700 tablet 12/24/16 Midodrine HCl [Proamatine -] 10 mg PO DAILY tablet 12/24/16 Sodium Polystyrene Sulfonate [Kayexalate -] 15 gm PO Q2D #1 bottle 01/25/17 Warfarin Sodium 4 mg PO DAILY #30 tablet 01/25/17 Polyethylene Glycol 3350 [Miralax 255 gm Btl -] 17 gm PO DAILY #1 bottle Insulin Glargine,Hum.rec.anlog [Lantus (10mL VIAL) -] 15 units SQ DAILY Amiodarone HCl [Cordarone -] 100 mg PO DAILY 05/01/17 Sevelamer HCl [Renagel] 800 mg PO TID 05/01/17 Lactulose (Oral Use) [Cephulac -] 20 gm PO DAILY #1 bottle 05/09/17 Oxycodone HCl/Acetaminophen [Percocet 5-325 mg Tablet] 1 tab PO BID #10 tab MDD 4 05/09/17 Anemia: Yes Asthma: Yes (HX BRONCHITIS, COPD) Cancer: No Cardiac Disorders: Yes (S/P open heart SX c/ bypass, stent placement) CVA: Yes (no residual) COPD: No CHF: Yes (CAD-MO) Dementia: No Diabetes: Yes Dialysis: Yes (SUN-Sun) GI Disorders: Yes (reflux) Disorders: Yes (ESRD-DIALYSIS TUES,TH,SAT) HTN: Yes Hypercholesterolemia: Yes Liver Disease: No Seizures: No Thyroid Disease: No - Surgical History Abdominal Surgery: Yes Appendectomy: No Cardiac Surgery: Yes (Stent placement, Open heart SX, BYpass SX) Cholecystectomy: Yes (2003) Lung Surgery: No Neurologic Surgery: No Orthopedic Surgery: No - Immunization History Td Vaccination: Yes Immunization Up to Date: Yes - Suicide/Smoking/Psychosocial Hx Smoking Status: No Smoking History: Never smoked Years of Tobacco Use: 0 Have you smoked in the past 12 months: No Number of Cigarettes Smoked Daily: 0 Cigars Per Day: 0 Hx Alcohol Use: No Drug/Substance Use Hx: No Substance Use Type: None Hx Substance Use Treatment: No Review of Systems - Review of Systems Able to Perform ROS?: No (2/2 patient condition) *Physical Exam - Physical Exam Comments: 05/15/17 18:22 GENERAL: Awake, in acute distress, ill-appearing, obviously distended abdomen HEAD: No signs of trauma, normocephalic, atraumatic EYES: PERRLA, EOMI, sclera anicteric, conjunctiva clear ENT: Auricles normal inspection, hearing grossly normal, nares patent, oropharynx clear without exudates. Moist mucosa NECK: Normal ROM, supple, no lymphadenopathy, or masses LUNGS: No distress, decreased breath sounds on left base. Equal breath sounds on both sides. HEART: Regular rate and rhythm, normal S1 and S2, no murmurs, rubs or gallops, peripheral pulses normal and equal bilaterally. ABDOMEN: Distended with tortuous veins, normoactive bowel sounds. Tender to palpation on right side. No rebound. No masses EXTREMITIES: Normal inspection, Normal range of motion, no edema. No clubbing or cyanosis. NEUROLOGICAL: Cranial nerves II through XII grossly intact. No focal sensorimotor deficits, moves all extremities SKIN: Warm, Dry, normal turgor, no rashes or lesions noted. ED Treatment Course - LABORATORY CBC & Chemistry Diagram: 05/15/17 15:42 05/15/17 15:42 - RADIOLOGY Radiology Studies Ordered: Category Date Time Status CHEST X-RAY PORTABLE* [RAD] Stat Radiology 05/15/17 15:11 Ordered Medical Decision Making - Medical Decision Making 05/15/17 18:25 62M patient with PMH of Afib with RVR (on Coumadin) CAD (s/p stent and CABG), IDDM, Ischemic Dilated Cardiomyopathy, HTN, CHF and ESRD (on HD T, Th, Sat) as well as recent (05/01/17) R AV Fistula placement who presents with vomiting, abdominal pain and altered mental status. Hypotensive to the mid 80s. Desats to 80s on room air. O2 sat in mid 90s on 4L O2. Bedside ultrasound showed no evidence of AAA, intra-abdominal bleed, or cardiac tamponade. Believe that etiology of is most likely fluid overload, but will initiate septic workup due to various risk factors for decreased immune function. Will also do CT scan to look for abdominal catastrophe. Not able to use IV contrast due to lack of peripheral IV access. EJ on right side done. EKG shows no p-waves with paced rhythm, left axis deviation, RBBB, bradycardic to 53bpm. When compared with prior EKG to 05/03 EKG, no significant changes. Suspected hyperkalemia, given albuterol, calcium gluconate, insulin and d50. Given fentanyl for low blood pressures, which has been an issue in prior admission. 05/15/17 18:31 Laboratory Tests 05/15/17 05/15/17 05/15/17 15:42 15:42 15:42 WBC 9.7 D Hgb 9.2 L Hct 30.1 L Plt Count 129 L D Neutrophils % 85.9 H INR 2.39 H D Sodium 132 L Potassium 5.9 H D Chloride 92 L BUN 136 H* D Creatinine 11.4 H* D Random Glucose 216 H Troponin I 0.06 H D CBC shows neutrophillic shift. INR elevated to 2.39. CMP shows elevated potassium, elevated Cr 11.4, BUN to 136, trop elevated to 0.06, consistent with patient who missed dialysis who is fluid overloaded. Dr Morillo contacted, is aware of need for dialysis. Admitted. 05/15/17 19:05 Lab contacted to report VBG showing pH of 6.9 and pco2 of 80. Apparently sample sat for hours without examination. Lab values grossly inconsistent with patient' s status, who is currently satting 97% on 4L O2 and never has desatted below 90 for more than a few minutes. *DC/Admit/Observation/Transfer Diagnosis at time of Disposition: ESRD (end stage renal disease) - Discharge Dispostion Condition at time of disposition: Stable Admit: Yes
[2017-05-15] MEDS ORDERED: DEXTROSE 50%-WATER 25 GM/50 ML DISP.SYRIN ONE (15:34)
[2017-05-15] MEDS ORDERED: INSULIN REGULAR HUMAN 100 UNITS/ML *VIAL ONE (15:35)
--- NOTE | 2017-05-15 15:49 | PDOC ---
Attending Attestation - Resident Resident Name: Jasbir Carr - ED Attending Attestation I have performed the following: I have examined & evaluated the patient, The case was reviewed & discussed with the resident, I agree w/resident's findings & plan, Exceptions are as noted - HPI HPI: 05/15/17 15:45 62-year-old male with multiple medical problems including end-stage renal disease on dialysis Sunday//Sunday presents with generalized weakness that has been progressive since discharge 9 days ago, culminating today and 2 episodes of vomiting with abdominal distention and pain. Scheduled for dialysis today but has not completed it yet. - Physicial Exam PE: 05/15/17 15:45 Blood pressure 90 systolic, O2 sat 100% on room air, glucose 200, respiratory rate within normal limits. Somnolent but arousable Irregularly irregular, right basilar crackles Abdomen is distended and tender mostly on the right, no guarding or rebound, otherwise soft. - Critical Care Time Total Critical Care Time: 50 Critical Care Statement: The care of this patient involved high complexity decision making to prevent further life threatening deterioration of the patient 's condition and/or to evaluate & treat vital organ system(s) failure or risk of failure. - Medical Decision Making 05/15/17 15:47 62-year-old male with end-stage renal disease presents with generalized weakness and hypotension, abdominal pain, missed dialysis today. Most concerning for electrolyte abnormality versus sepsis versus cardiopulmonary process, rule out bleeding internally. Seen immediately upon arrival and placed on monitor IV access obtained, IV fluid resuscitation initiated Bedside ultrasound showed fluid in the abdomen but no pericardial effusion Stat labs, EKG Chest x-ray, CT of the abdomen Will need dialysis Admission, possible ICU 05/15/17 16:[address] Tavarez, who knows the patient well. Chronically ill with renal/liver/heart disease and recurring volume overload. Accepts for tele inpatient admission, covering Dr. Sutton. Dr. Morillo of nephrology consulted for HD tonight. Heart Score/ECG Review #1 Compared to previous ECG there are: No significant change 05/15/17 15:46 afib with RBBB, single paced beat, no acute ST changes
[2017-05-15 16:03] LABS: BASOPHIL 0.8 % (0-2.0); EOSINOPHIL 0.9 % (0-4.5); MCH 27.6 pg (25.7-33.7); MCHC 30.5 g/dl (32.0-35.9); MEAN CELL VOLUME 90.5 fl (80-96); MEAN PLT VOLUME 10.4 fl (7.5-11.1); NEUTROPHILS 85.9 % (42.8-82.8); PLATELET COUNT 129 K/MM3 (134-434); RDW 21.4 % (11.9-15.9); WHITE BLOOD COUNT 9.7 K/mm3 (4.0-10.0)
[2017-05-15 16:20] LABS: INR 2.39 (0.82-1.09)
[2017-05-15 16:22] LABS: ACTIVATED PTT 37.4 SECONDS (26.9-34.4)
[2017-05-15 16:28] LABS: ALBUMIN 3.2 g/dl (3.4-5.0); ANION GAP 19 (8-16); BILIRUBIN,TOTAL 0.6 mg/dL (0.2-1.0); CALCIUM 7.7 mg/dL (8.5-10.1); CO2 21 mmol/L (21-32); GLUCOSE,RANDOM 216 mg/dL (74-106); SGOT/AST 20 U/L (15-37); TOT PROT 7.7 g/dl (6.4-8.2)
[2017-05-15 16:34] LABS: ANISOCYTOSIS 2+; HYPOCHROMIA FEW; MICROCYTOSIS 1+; OVALOCYTE 1+; PLATELET ESTIMATE DECREASED (NORMAL); POLYCHROMASIA 1+; TEAR DROP CELLS FEW
[2017-05-15 16:35] LABS: ALK PHOS 110 U/L (45-117); CPK 37 IU/L (39-308); SGPT/ALT 26 U/L (12-78); TROPONIN I 0.06 ng/ml (0.00-0.05)
[2017-05-15 16:37] LABS: CREATININE 11.4 mg/dL (0.7-1.3)
[2017-05-15] MEDS ORDERED: ONDANSETRON 4 MG/2 ML VIAL IVPUSH ONE (17:23)
[2017-05-15 19:01] LABS: VENOUS BLOOD GAS HCO3 16.2 meq/L (19-25)
[2017-05-15 19:03] LABS: VENOUS PH 6.93 (7.32-7.42)
[2017-05-15] MEDS ORDERED: ACETAMINOPHEN 325 MG TABLET (FP) ONE (20:53)
[2017-05-15] MEDS ORDERED: oxyCODONE HCL 5 MG TABLET ONE ×2 (20:53→23:52)
[2017-05-15] MEDS: oxyCODONE HCL 5 MG TABLET PO PRN (20:56)
[2017-05-15] MEDS: ACETAMINOPHEN 325 MG TABLET (FP) PO PRN (20:57)
[2017-05-15] MEDS ORDERED: oxyCODONE HCL 5 MG TABLET PO STA (23:50)
[2017-05-16] MEDS ORDERED: oxyCODONE HCL 5 MG TABLET ONE (05:39)
[2017-05-16] MEDS: MIDODRINE HCL 5 MG TABLET PO SCH ×2 (07:42→18:35)
--- NOTE | 2017-05-16 09:52 | HP ---
Admitting History and Physical - Primary Care Physician PCP: Cecilia Teran - Admission Chief Complaint: weakness History of Present Illness: recenlty discharged, now returns with lethargy, weakness and increasing edema History Source: Family Member, Medical Record Limitations to Obtaining History: Clinical Condition - Past Medical History RICE DRIER: Yes: Peripheral Neuropathy Cardiovascular: Yes: AFIB, CAD (s/p CABG, PCI/stent), CHF (severe biventricular failure, Medtronin ICD), HTN, Hyperlipdemia, Mitral Insufficiency, Murmur, Pulmonary Hypertension Pulmonary: Yes: COPD, Other (h/o MARIAN in lungs-not treated) Gastrointestinal: Yes: GI Bleed, Other (possible portal gastropathy on 06/23 EGD ) Hepatobiliary: Yes: Cirrhosis (felt to be due to right heart failure and GONG ) , Cholelithiasis (s/p lap cholecystectomy) Renal/: Yes: Renal Failure, Hemodialysis Heme/Onc: Yes: Anemia, Thrombocytopenia Psych: Yes: Anxiety Endocrine: Yes: Diabetes Mellitus, Hypothyroidism - Past Surgical History Past Surgical History: Yes: AV Fistula/Graft (LUE), CABG, Cholecystectomy, Permanent Pacemaker (ICD implant), Upper Endoscopy - Smoking History Smoking history: Never smoked Have you smoked in the past 12 months: No Aproximately how many cigarettes per day: 0 - Alcohol/Substance Use Hx Alcohol Use: No History of Substance Use: reports: None - Social History ADL: Independent 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 History of Recent Travel: No Home Medications - Allergies Allergies/Adverse Reactions: Allergies Allergy/AdvReac Type Severity Reaction Status Date / Time No Known Drug Allergies Allergy Verified 05/15/17 15:16 - Home Medications Home Medications: Ambulatory Orders Sucralfate [Carafate -] 1 gm PO BID 12/19/16 Levothyroxine [Synthroid -] 75 mcg PO DAILY@0700 tablet 12/24/16 Midodrine HCl [Proamatine -] 10 mg PO DAILY tablet 12/24/16 Sodium Polystyrene Sulfonate [Kayexalate -] 15 gm PO Q2D #1 bottle 01/25/17 Warfarin Sodium 4 mg PO DAILY #30 tablet 01/25/17 Polyethylene Glycol 3350 [Miralax 255 gm Btl -] 17 gm PO DAILY #1 bottle Insulin Glargine,Hum.rec.anlog [Lantus (10mL VIAL) -] 15 units SQ DAILY Amiodarone HCl [Cordarone -] 100 mg PO DAILY 05/01/17 Sevelamer HCl [Renagel] 800 mg PO TID 05/01/17 Lactulose (Oral Use) [Cephulac -] 20 gm PO DAILY #1 bottle 05/09/17 Oxycodone HCl/Acetaminophen [Percocet 5-325 mg Tablet] 1 tab PO BID #10 tab MDD 4 05/09/17 Family Disease History - Family Disease History Family Disease History: Other: Father (lived to 85- natural cause), Mother ( lived to 71- natural cause) Review of Systems Unable to obtain ROS, reason: lethargic Physical Examination Vital Signs: Vital Signs Temperature 97.5 F L 05/16/17 08:35 Pulse Rate 52 L 05/16/17 09:40 Respiratory Rate 18 05/16/17 09:40 Blood Pressure 82/39 05/16/17 09:40 O2 Sat by Pulse Oximetry (%) 99 05/15/17 23:40 Imaging - Results Cat Scan: Report Reviewed Problem List - Problems (1) ESRD (end stage renal disease) Code(s): N18.6 - END STAGE RENAL DISEASE (2) Acute hyperkalemia Code(s): E87.5 - HYPERKALEMIA (3) Anemia Code(s): D64.9 - ANEMIA, UNSPECIFIED Qualifiers: Anemia type: due to chronic kidney disease Chronic kidney disease stage: on chronic dialysis Qualified Code(s): N18.6 - End stage renal disease (4) Ascites Code(s): R18.8 - OTHER ASCITES Qualifiers: Ascites type: other type Qualified Code(s): R18.8 - Other ascites (5) Atrial fibrillation Code(s): I48.91 - UNSPECIFIED ATRIAL FIBRILLATION Qualifiers: Atrial fibrillation type: persistent Qualified Code(s): I48.1 - Persistent atrial fibrillation (6) Bradycardia Code(s): R00.1 - BRADYCARDIA, UNSPECIFIED (7) Chronic hyperkalemia Code(s): E87.5 - HYPERKALEMIA (8) Cirrhosis Code(s): K74.60 - UNSPECIFIED CIRRHOSIS OF LIVER Qualifiers: Hepatic cirrhosis type: unspecified hepatic cirrhosis Ascites presence: with ascites Qualified Code(s): K74.60 - Unspecified cirrhosis of liver (9) Congestive heart failure Code(s): I50.9 - HEART FAILURE, UNSPECIFIED Qualifiers: Congestive heart failure type: systolic Congestive heart failure chronicity : chronic Qualified Code(s): I50.22 - Chronic systolic (congestive) heart failure Assessment/Plan lethargic, respiration is shallow on HD right now son is coming in to discuss dnr order, he has been told that his dad has severe cardiomyopathy end stage renal ds. and cirrhosis, outcome is very poor. he has been deteriorating quite rapidly over the past weeks, appears to be dying right now
[2017-05-16 09:53] LABS: BASOPHIL 1.4 % (0-2.0); EOSINOPHIL 0.9 % (0-4.5); MCH 26.4 pg (25.7-33.7); MCHC 29.6 g/dl (32.0-35.9); MEAN CELL VOLUME 89.1 fl (80-96); MEAN PLT VOLUME 9.8 fl (7.5-11.1); NEUTROPHILS 85.8 % (42.8-82.8); PLATELET COUNT 194 K/MM3 (134-434); RDW 21.7 % (11.9-15.9); WHITE BLOOD COUNT 16.4 K/mm3 (4.0-10.0)
[2017-05-16 10:09] LABS: INR 2.45 (0.82-1.09); PROTHROMBIN TIME (PATIENT) 27.7 SEC (9.98-11.88)
[2017-05-16 10:21] LABS: ALBUMIN 3.6 g/dl (3.4-5.0); ANION GAP 18 (8-16); BILIRUBIN,TOTAL 0.6 mg/dL (0.2-1.0); CALCIUM 7.9 mg/dL (8.5-10.1); CO2 17 mmol/L (21-32); GLUCOSE,RANDOM 228 mg/dL (74-106); SGOT/AST 16 U/L (15-37); SGPT/ALT 25 U/L (12-78); TOT PROT 8.2 g/dl (6.4-8.2)
[2017-05-16 10:30] LABS: ALK PHOS 111 U/L (45-117)
[2017-05-16 10:55] LABS: CREATININE 11.6 mg/dL (0.7-1.3)
[2017-05-16] MEDS: oxyCODONE HCL 5 MG TABLET PO PRN ×2 (13:36→18:13)
[2017-05-16] MEDS: ACETAMINOPHEN 325 MG TABLET (FP) PO PRN ×2 (13:40→18:14)
[2017-05-16 14:25] VITALS: BMI 26.8
[2017-05-16] MEDS ORDERED: WARFARIN NA 2 MG TABLET (UD) PO SCH (18:00)
[2017-05-16] MEDS: SEVELAMER CARBONATE 800 MG TAB (FP) PO SCH ×2 (18:12→18:35)
[2017-05-16] MEDS: LACTULOSE 20 GM/30 ML UDC (FOR ORAL USE ONLY) PO SCH (18:13)
[2017-05-16] MEDS: POLYETHYLENE GLYCOL 3350 119 GM BTL PO SCH (18:16)
[2017-05-16] MEDS: LEVOTHYROXINE NA 75 MCG TABLET (FP) PO SCH (18:36)
[2017-05-16] MEDS: INSULIN DETEMIR 100 UNITS/ML MDV SQ SCH (18:36)
[2017-05-16] MEDS ORDERED: FLU VACCINE QUAD 60 MCG/0.5 ML (MDV 17-18) IM ONE ×2 (19:18→19:30)
[2017-05-17] MEDS: LEVOTHYROXINE NA 75 MCG TABLET (FP) PO SCH (06:42)
[2017-05-17] MEDS: SEVELAMER CARBONATE 800 MG TAB (FP) PO SCH ×3 (06:42→17:45)
[2017-05-17] MEDS: INSULIN DETEMIR 100 UNITS/ML MDV SQ SCH (06:43)
--- NOTE | 2017-05-17 07:50 | PN ---
Progress Note (short form) - Note Progress Note: patient is lethargic overnight with periods of wakefulness wants pain medicine fo generalized body pains Vital Signs Period Temp Pulse Resp BP Sys/Lopez Pulse Ox Last 24 Hr 97.3 F-99.5 F 51-100 18-22 71-100/31-62 100-100 S1S2 irreg.irreg. lungs cta ant abd distended +bs tr pedal edema imp esrd severe cardiomyopathy chronic hypotension dm hypothyroidism end of life care, DNR/DNI d/w patient's son at length yesterday-placed ordered cont pain medication hd as per renal Problem List - Problems (1) ESRD (end stage renal disease) Code(s): N18.6 - END STAGE RENAL DISEASE (2) Acute hyperkalemia Code(s): E87.5 - HYPERKALEMIA (3) Anemia Code(s): D64.9 - ANEMIA, UNSPECIFIED Qualifiers: Anemia type: due to chronic kidney disease Chronic kidney disease stage: on chronic dialysis Qualified Code(s): N18.6 - End stage renal disease (4) Ascites Code(s): R18.8 - OTHER ASCITES Qualifiers: Ascites type: other type Qualified Code(s): R18.8 - Other ascites (5) Atrial fibrillation Code(s): I48.91 - UNSPECIFIED ATRIAL FIBRILLATION Qualifiers: Atrial fibrillation type: persistent Qualified Code(s): I48.1 - Persistent atrial fibrillation (6) Bradycardia Code(s): R00.1 - BRADYCARDIA, UNSPECIFIED (7) Chronic hyperkalemia Code(s): E87.5 - HYPERKALEMIA (8) Cirrhosis Code(s): K74.60 - UNSPECIFIED CIRRHOSIS OF LIVER Qualifiers: Hepatic cirrhosis type: unspecified hepatic cirrhosis Ascites presence: with ascites Qualified Code(s): K74.60 - Unspecified cirrhosis of liver (9) Congestive heart failure Code(s): I50.9 - HEART FAILURE, UNSPECIFIED Qualifiers: Congestive heart failure type: systolic Congestive heart failure chronicity : chronic Qualified Code(s): I50.22 - Chronic systolic (congestive) heart failure
--- NOTE | 2017-05-17 08:38 | PN ---
Progress Note (short form) - Note Progress Note: RENAL ALL NOTES REVIEWED FEELS OK TALKING JUST WEAK DNR SIGNED LABS NOTED WILL REDIALYZE TODAY K WAS BACK UP YESTERDAY HE UNDERSTANDS HIS PROGNOSIS IS POOR LEAVES IT MUCH TO THE PHYSICIANS TO SUGGEST AND DO THE RIGHT THING CASE D/W DR ZHONG LAST NIGHT ONE OPTION FOR SYMPTOM RELIEF MAY BE GETTING A PIGTAIL FOR ASCITIC FLUID DRAIN PERHAPS QOD HD TODAY 3 HR K2 CA2.5 [facility] 3 KG WILL GIVE MIDODRINE PRE HD LOWER LEVMIR TO 10 PO FOOD INTAKE PERHAPS LOWER THAN USUAL
[2017-05-17] MEDS: oxyCODONE HCL 5 MG TABLET PO PRN ×3 (09:08→22:56)
[2017-05-17] MEDS: ACETAMINOPHEN 325 MG TABLET (FP) PO PRN ×2 (09:08→18:40)
[2017-05-17] MEDS ORDERED: SODIUM POLYSTYRENE SULFONATE 15 GM/60 ML BOTTLE PO SCH (10:00)
[2017-05-17] MEDS ORDERED: oxyCODONE HCL 5 MG TABLET PO ONE (12:30)
[2017-05-17] MEDS ORDERED: ACETAMINOPHEN 325 MG TABLET (FP) PO ONE (12:30)
[2017-05-17] MEDS: MIDODRINE HCL 5 MG TABLET PO SCH (12:43)
[2017-05-17] MEDS: POLYETHYLENE GLYCOL 3350 119 GM BTL PO SCH (14:56)
[2017-05-17] MEDS: LACTULOSE 20 GM/30 ML UDC (FOR ORAL USE ONLY) PO SCH ×2 (14:56→17:45)
[2017-05-17] MEDS ORDERED: EPOETIN ALFA 10,000 UNIT/1 ML VIAL IVPUSH ONE (15:15)
[2017-05-17] MEDS ORDERED: INSULIN DETEMIR 100 UNITS/ML MDV SQ ONE (16:39)
[2017-05-17] MEDS ORDERED: INSULIN (NOVOLOG) ASPART 100 UNITS/ML 10ML VIAL ONE (16:39)
[2017-05-17] MEDS: SODIUM POLYSTYRENE SULFONATE 15 GM/60 ML BOTTLE PO SCH (17:46)
[2017-05-18] MEDS: LEVOTHYROXINE NA 75 MCG TABLET (FP) PO SCH (06:28)
[2017-05-18] MEDS: INSULIN DETEMIR 100 UNITS/ML MDV SQ SCH (06:31)
[2017-05-18] MEDS: oxyCODONE HCL 5 MG TABLET PO PRN ×3 (06:49→17:51)
[2017-05-18] MEDS: ACETAMINOPHEN 325 MG TABLET (FP) PO PRN ×3 (06:49→13:30)
--- NOTE | 2017-05-18 08:33 | PROC ---
Procedure Note Procedure: Patient had RUE AVG placed 05/02/17. All mae removed. Good wound approximation without signs of infection Steri strips placed. Tolerated well.
--- NOTE | 2017-05-18 08:54 | PN ---
Progress Note (short form) - Note Progress Note: RENAL 62 WITH END STAGE ISCHEMIC CARDIOMYOPATHY ESRD CIRRHOSIS ASCITES ALL NOTES REVIEWED FEELS OK TALKING JUST WEAK NEEDS PT ORDERED DIALYZED YESTERDAY 3 HRS [facility] 2 KG TOLERATED INSPITE OF LOW BP WILL DIALYZE IN AM VIA AVG SUTURES OUT 2 WEEKS OUT NOW IF USE OK SAT AND MON DC PERMCATH BEFORE DC HOME LABS AT HD SEE IF IR CAN PLACE PIGTAIL CASE D/W DR CASTREJON
--- NOTE | 2017-05-18 09:00 | PN ---
Progress Note (short form) - Note Progress Note: S1S2 irreg.irreg. more tachy lungs cta ant abd distended +bs tr pedal edema awake alert imp esrd severe cardiomyopathy chronic hypotension dm hypothyroidism end of life care, DNR/DNI d/w pt today defers medical decisions to son cont pain medication hd as per renal pig tail cath on sunday if remains stable hold warfarin resume amiodarone Problem List - Problems (1) ESRD (end stage renal disease) Code(s): N18.6 - END STAGE RENAL DISEASE (2) Acute hyperkalemia Code(s): E87.5 - HYPERKALEMIA (3) Anemia Code(s): D64.9 - ANEMIA, UNSPECIFIED Qualifiers: Anemia type: due to chronic kidney disease Chronic kidney disease stage: on chronic dialysis Qualified Code(s): N18.6 - End stage renal disease (4) Ascites Code(s): R18.8 - OTHER ASCITES Qualifiers: Ascites type: other type Qualified Code(s): R18.8 - Other ascites (5) Atrial fibrillation Code(s): I48.91 - UNSPECIFIED ATRIAL FIBRILLATION Qualifiers: Atrial fibrillation type: persistent Qualified Code(s): I48.1 - Persistent atrial fibrillation (6) Bradycardia Code(s): R00.1 - BRADYCARDIA, UNSPECIFIED (7) Chronic hyperkalemia Code(s): E87.5 - HYPERKALEMIA (8) Cirrhosis Code(s): K74.60 - UNSPECIFIED CIRRHOSIS OF LIVER Qualifiers: Hepatic cirrhosis type: unspecified hepatic cirrhosis Ascites presence: with ascites Qualified Code(s): K74.60 - Unspecified cirrhosis of liver (9) Congestive heart failure Code(s): I50.9 - HEART FAILURE, UNSPECIFIED Qualifiers: Congestive heart failure type: systolic Congestive heart failure chronicity : chronic Qualified Code(s): I50.22 - Chronic systolic (congestive) heart failure
[2017-05-18] MEDS: AMIODARONE HCL 200 MG TABLET (FP) PO SCH ×2 (10:13→10:18)
[2017-05-18] MEDS: MIDODRINE HCL 5 MG TABLET PO SCH (10:17)
[2017-05-18] MEDS: SEVELAMER CARBONATE 800 MG TAB (FP) PO SCH ×3 (10:17→16:26)
[2017-05-18] MEDS: LACTULOSE 20 GM/30 ML UDC (FOR ORAL USE ONLY) PO SCH (10:18)
--- NOTE | 2017-05-18 11:23 | EKG ---
Test Reason : Blood Pressure : / mmHG Vent. Rate : 053 BPM Atrial Rate : 052 BPM P-R Int : 000 ms QRS Dur : 192 ms QT Int : 528 ms P-R-T Axes : 000 -86 250 degrees QTc Int : 495 ms PROBABLE ATRIAL FIBRILLATION Ventricular demand pacemaker LEFT AXIS DEVIATION RIGHT BUNDLE BRANCH BLOCK ANTEROSEPTAL INFARCT (CITED ON OR BEFORE 21-AUG-2014) NONSPECIFIC ST ABNORMALITY Confirmed by CLAUDIA ALANIS MD ([id number]) on 05/18/2017 11:23:10 AM Referred By: Confirmed By:CLAUDIA ALANIS MD
[2017-05-18] MEDS: ONDANSETRON 4 MG/2 ML VIAL IVPUSH PRN (17:51)
[2017-05-19] MEDS: oxyCODONE HCL 5 MG TABLET PO PRN ×4 (01:55→18:28)
[2017-05-19] MEDS: SEVELAMER CARBONATE 800 MG TAB (FP) PO SCH ×3 (06:03→17:31)
[2017-05-19] MEDS: LEVOTHYROXINE NA 75 MCG TABLET (FP) PO SCH (06:03)
[2017-05-19] MEDS: INSULIN DETEMIR 100 UNITS/ML MDV SQ SCH (06:15)
[2017-05-19] MEDS: MIDODRINE HCL 5 MG TABLET PO SCH ×2 (06:38→13:01)
[2017-05-19] MEDS ORDERED: EPOETIN ALFA 10,000 UNIT/1 ML VIAL IVPUSH ONE ×2 (07:00→10:00)
[2017-05-19 08:57] LABS: BASOPHIL 0.5 % (0-2.0); EOSINOPHIL 1.5 % (0-4.5); MCH 26.5 pg (25.7-33.7); MCHC 29.9 g/dl (32.0-35.9); MEAN CELL VOLUME 88.6 fl (80-96); PLATELET COUNT 103 K/MM3 (134-434); WHITE BLOOD COUNT 9.9 K/mm3 (4.0-10.0)
[2017-05-19 09:09] LABS: INR 2.74 (0.82-1.09)
[2017-05-19 09:25] LABS: ANION GAP 15 (8-16); BILIRUBIN,TOTAL 0.7 mg/dL (0.2-1.0); CALCIUM 7.7 mg/dL (8.5-10.1); CO2 22 mmol/L (21-32); GLUCOSE,RANDOM 196 mg/dL (74-106); SGOT/AST 14 U/L (15-37); SGPT/ALT 20 U/L (12-78); TOT PROT 6.8 g/dl (6.4-8.2)
[2017-05-19 09:30] LABS: ALK PHOS 77 U/L (45-117)
[2017-05-19] MEDS ORDERED: EPOETIN ALFA 20,000 UNIT/1 ML VIAL SQ ONE (09:30)
[2017-05-19 09:58] LABS: CREATININE 7.9 mg/dL (0.7-1.3)
[2017-05-19] MEDS ORDERED: PHYTONADIONE 5 MG TABLET PO ONE (10:21)
--- NOTE | 2017-05-19 10:29 | PN ---
Progress Note (short form) - Note Progress Note: RENAL 62 WITH END STAGE ISCHEMIC CARDIOMYOPATHY ESRD CIRRHOSIS ASCITES ALL NOTES REVIEWED SEEN AT HD HIPS 20 NR USED LEFT ARM AVG 3 HR K2 CA2.5 [facility] 4 KG BP HOLDING APPEARS PALE HB DROPPED 7.3 INR 2.7 WILL TRANSFUSE 1 U PRBC GIVE VIT K 5 MG SQ TRANSFUSE 2 U FFPS CLAIMS STOOL WAS BLACK SEND STOOL OB WILL HAVE TO TREAT CONSERVATIVELY IF STABLE TILL MON TUES CONSIDER PIGTAIL FOR SYMPTOM RELIEF CASE D/W DR CASTREJON
[2017-05-19] MEDS ORDERED: PHYTONADIONE 10 MG/1 ML AMP SQ ONE (12:45)
[2017-05-19] MEDS: LACTULOSE 20 GM/30 ML UDC (FOR ORAL USE ONLY) PO SCH (12:59)
[2017-05-19] MEDS: SODIUM POLYSTYRENE SULFONATE 15 GM/60 ML BOTTLE PO SCH (13:01)
--- NOTE | 2017-05-19 13:42 | PN ---
Progress Note, Physician Chief Complaint: No new complaints - Current Medication List Current Medications: Active Medications Acetaminophen (Tylenol -) 325 mg PO Q6H PRN PRN Reason: PAIN Last Admin: 05/18/17 13:30 Dose: 325 mg Amiodarone HCl (Cordarone -) 100 mg PO DAILY [facility] Last Admin: 05/18/17 10:18 Dose: 100 mg Insulin Detemir (Levemir Vial) 10 units SQ DAILY@0700 [facility] Last Admin: 05/19/17 06:15 Dose: 10 units Lactulose (Cephulac (Oral Use)) 20 gm PO DAILY [facility] Last Admin: 05/19/17 12:59 Dose: 20 gm Levothyroxine Sodium (Synthroid -) 75 mcg PO DAILY@0700 [facility] Last Admin: 05/19/17 06:03 Dose: 75 mcg Midodrine (Proamatine -) 10 mg PO DAILY [facility] Last Admin: 05/19/17 13:01 Dose: Not Given Ondansetron HCl (Zofran Injection) 4 mg IVPUSH Q6H PRN PRN Reason: NAUSEA AND/OR VOMITING Last Admin: 05/18/17 17:51 Dose: 4 mg Oxycodone HCl (Roxicodone -) 10 mg PO QID PRN PRN Reason: PAIN Last Admin: 05/19/17 12:59 Dose: 10 mg Sevelamer Carbonate (Renvela -) 800 mg PO TIDAC [facility] Last Admin: 05/19/17 13:01 Dose: 800 mg Sodium Polystyrene Sulfonate (Kayexalate -) 15 gm PO Q2D [facility] Last Admin: 05/19/17 13:01 Dose: Not Given - Objective Vital Signs: Vital Signs Temperature 98.7 F 05/19/17 08:10 Pulse Rate 61 05/19/17 12:20 Respiratory Rate 18 05/19/17 12:20 Blood Pressure 136/66 05/19/17 12:20 O2 Sat by Pulse Oximetry (%) 97 05/18/17 21:00 Constitutional: Yes: No Distress Neck: Yes: Supple Cardiovascular: Yes: Regular Rate and Rhythm, S1, S2 Respiratory: Yes: Regular, CTA Bilaterally Gastrointestinal: Yes: Normal Bowel Sounds, Soft Neurological: Yes: Alert, Oriented. No: Loss of Sensation ...Motor Strength: WNL Labs: CBC, BMP 05/19/17 08:15 05/19/17 08:15 INR, PTT INR 2.74 (0.82-1.09) H 05/19/17 08:15 Problem List - Problems (1) ESRD (end stage renal disease) Assessment/Plan: HD as per renal Code(s): N18.6 - END STAGE RENAL DISEASE
[2017-05-19] MEDS: AMIODARONE HCL 200 MG TABLET (FP) PO SCH (17:16)
[2017-05-20] MEDS: SEVELAMER CARBONATE 800 MG TAB (FP) PO SCH ×3 (06:11→17:12)
[2017-05-20] MEDS: LEVOTHYROXINE NA 75 MCG TABLET (FP) PO SCH (06:11)
[2017-05-20] MEDS: INSULIN DETEMIR 100 UNITS/ML MDV SQ SCH (06:12)
[2017-05-20] MEDS: oxyCODONE HCL 5 MG TABLET PO PRN ×3 (06:33→21:22)
[2017-05-20] MEDS: ACETAMINOPHEN 325 MG TABLET (FP) PO PRN ×3 (06:33→21:22)
--- NOTE | 2017-05-20 08:22 | PN ---
Progress Note (short form) - Note Progress Note: RENAL 62 WITH END STAGE ISCHEMIC CARDIOMYOPATHY ESRD CIRRHOSIS ASCITES BP IN 70S WILL INCREASE MIDODRINE TO 10 BID ALL NOTES REVIEWED WAS DIALYZED YESTERDAY GOT 1 U PRBC AND 2 U FFPS WILL DIALYZE IN AM SEND LABS AT HD IF INR LOW THEN CAN GET PIGTAIL AND DC PERMCATH AFTER AVG USED IN AM FOR HD NO BM FOLLOW HCT IN AM ALL MEDS REVIEWD CASE D/W SON AT BEDSIDE ABLE TO WALK INDEPENDENTLY CASE D/W NURSE
[2017-05-20] MEDS ORDERED: PT OWN MED DRAWER 7, Y5N ONE (10:19)
[2017-05-20] MEDS: MIDODRINE HCL 5 MG TABLET PO SCH ×2 (10:25→17:11)
[2017-05-20] MEDS: LACTULOSE 20 GM/30 ML UDC (FOR ORAL USE ONLY) PO SCH (10:25)
[2017-05-20] MEDS: AMIODARONE HCL 200 MG TABLET (FP) PO SCH (10:26)
--- NOTE | 2017-05-20 14:20 | PN ---
Progress Note, Physician Chief Complaint: No new complaints - Current Medication List Current Medications: Active Medications Acetaminophen (Tylenol -) 325 mg PO Q6H PRN PRN Reason: PAIN Last Admin: 05/20/17 06:33 Dose: 325 mg Amiodarone HCl (Cordarone -) 100 mg PO DAILY [facility] Last Admin: 05/20/17 10:26 Dose: 100 mg Epoetin Chevy (Procrit -) 20,000 unit IVPUSH ONCE ONE Stop: 05/21/17 08:25 Insulin Detemir (Levemir Vial) 10 units SQ DAILY@0700 [facility] Last Admin: 05/20/17 06:12 Dose: 10 units Lactulose (Cephulac (Oral Use)) 20 gm PO DAILY [facility] Last Admin: 05/20/17 10:25 Dose: 20 gm Levothyroxine Sodium (Synthroid -) 75 mcg PO DAILY@0700 [facility] Last Admin: 05/20/17 06:11 Dose: 75 mcg Midodrine (Proamatine -) 10 mg PO BID-MID [facility] Last Admin: 05/20/17 10:25 Dose: 10 mg Ondansetron HCl (Zofran Injection) 4 mg IVPUSH Q6H PRN PRN Reason: NAUSEA AND/OR VOMITING Last Admin: 05/18/17 17:51 Dose: 4 mg Oxycodone HCl (Roxicodone -) 10 mg PO QID PRN PRN Reason: PAIN Last Admin: 05/20/17 06:33 Dose: 10 mg Sevelamer Carbonate (Renvela -) 800 mg PO TIDAC [facility] Last Admin: 05/20/17 11:53 Dose: 800 mg Sodium Polystyrene Sulfonate (Kayexalate -) 15 gm PO Q2D [facility] Last Admin: 05/19/17 13:01 Dose: Not Given - Objective Vital Signs: Vital Signs Temperature 97.3 F L 05/20/17 09:27 Pulse Rate 103 H 05/20/17 09:27 Respiratory Rate 20 05/20/17 09:27 Blood Pressure 117/31 05/20/17 09:27 O2 Sat by Pulse Oximetry (%) 100 05/19/17 21:00 Constitutional: Yes: No Distress Neck: Yes: Supple Cardiovascular: Yes: Regular Rate and Rhythm, S1, S2 Respiratory: Yes: Regular Gastrointestinal: Yes: Normal Bowel Sounds, Soft Neurological: Yes: Alert. No: Loss of Sensation ...Motor Strength: WNL Labs: CBC, BMP 05/19/17 08:15 05/19/17 08:15 INR, PTT INR 2.74 (0.82-1.09) H 05/19/17 08:15 Problem List - Problems (1) ESRD (end stage renal disease) Assessment/Plan: HD as per renal Code(s): N18.6 - END STAGE RENAL DISEASE
[2017-05-21] MEDS: INSULIN DETEMIR 100 UNITS/ML MDV SQ SCH (06:13)
[2017-05-21] MEDS: ACETAMINOPHEN 325 MG TABLET (FP) PO PRN ×3 (06:14→17:47)
[2017-05-21] MEDS: oxyCODONE HCL 5 MG TABLET PO PRN ×3 (06:14→17:46)
[2017-05-21] MEDS: SEVELAMER CARBONATE 800 MG TAB (FP) PO SCH ×3 (06:15→17:39)
[2017-05-21] MEDS: MIDODRINE HCL 5 MG TABLET PO SCH ×3 (06:15→17:39)
[2017-05-21] MEDS: LEVOTHYROXINE NA 75 MCG TABLET (FP) PO SCH (06:15)
[2017-05-21] MEDS ORDERED: EPOETIN ALFA 20,000 UNIT/1 ML VIAL IVPUSH ONE (06:45)
--- NOTE | 2017-05-21 09:01 | PN ---
Progress Note (short form) - Note Progress Note: CBC, BMP 05/21/17 08:00 Vital Signs Period Temp Pulse Resp BP Sys/Lopez Pulse Ox Last 24 Hr 97.3 F-98.3 F 53-107 18-20 70-135/31-67 97 S1S2 irreg.irreg. lungs cta ant abd distended +bs but less tense than last week tr pedal edema awake alert feels much better imp esrd severe cardiomyopathy chronic hypotension dm hypothyroidism over the weekend more anemic with black stool-received 1 unit pprb, 2 unit ffp end of life care, DNR/DNI cont pain medication hd pig tail cath today if INR is lower stop warfarin not medically stable for EGD and colonosopcy at this stage-stop warfarin and monitor h/h procrit given with hd dc planning home, pt does not want rehab. Problem List - Problems (1) ESRD (end stage renal disease) Code(s): N18.6 - END STAGE RENAL DISEASE (2) Acute hyperkalemia Code(s): E87.5 - HYPERKALEMIA (3) Anemia Code(s): D64.9 - ANEMIA, UNSPECIFIED Qualifiers: Anemia type: due to chronic kidney disease Chronic kidney disease stage: on chronic dialysis Qualified Code(s): N18.6 - End stage renal disease (4) Ascites Code(s): R18.8 - OTHER ASCITES Qualifiers: Ascites type: other type Qualified Code(s): R18.8 - Other ascites (5) Atrial fibrillation Code(s): I48.91 - UNSPECIFIED ATRIAL FIBRILLATION Qualifiers: Atrial fibrillation type: persistent Qualified Code(s): I48.1 - Persistent atrial fibrillation (6) Bradycardia Code(s): R00.1 - BRADYCARDIA, UNSPECIFIED (7) Chronic hyperkalemia Code(s): E87.5 - HYPERKALEMIA (8) Cirrhosis Code(s): K74.60 - UNSPECIFIED CIRRHOSIS OF LIVER Qualifiers: Hepatic cirrhosis type: unspecified hepatic cirrhosis Ascites presence: with ascites Qualified Code(s): K74.60 - Unspecified cirrhosis of liver (9) Congestive heart failure Code(s): I50.9 - HEART FAILURE, UNSPECIFIED Qualifiers: Congestive heart failure type: systolic Congestive heart failure chronicity : chronic Qualified Code(s): I50.22 - Chronic systolic (congestive) heart failure
[2017-05-21 09:03] LABS: MCH 27.1 pg (25.7-33.7); MCHC 30.3 g/dl (32.0-35.9); MEAN CELL VOLUME 89.7 fl (80-96); MEAN PLT VOLUME 8.7 fl (7.5-11.1); PLATELET COUNT 88 K/MM3 (134-434); RDW 20.4 % (11.9-15.9)
[2017-05-21 09:30] LABS: INR 1.19 (0.82-1.09); PROTHROMBIN TIME (PATIENT) 13.4 SEC (9.98-11.88)
[2017-05-21 09:38] LABS: ANION GAP 16 (8-16); CALCIUM 7.7 mg/dL (8.5-10.1); CO2 22 mmol/L (21-32); GLUCOSE,RANDOM 201 mg/dL (74-106)
[2017-05-21 11:10] LABS: CREATININE 7.6 mg/dL (0.7-1.3)
[2017-05-21] MEDS: AMIODARONE HCL 200 MG TABLET (FP) PO SCH (11:56)
[2017-05-21] MEDS: LACTULOSE 20 GM/30 ML UDC (FOR ORAL USE ONLY) PO SCH (11:56)
[2017-05-21] MEDS: SODIUM POLYSTYRENE SULFONATE 15 GM/60 ML BOTTLE PO SCH (11:56)
[2017-05-22] MEDS: oxyCODONE HCL 5 MG TABLET PO PRN ×4 (00:28→21:00)
[2017-05-22] MEDS: ACETAMINOPHEN 325 MG TABLET (FP) PO PRN ×4 (00:29→21:02)
[2017-05-22] MEDS: INSULIN DETEMIR 100 UNITS/ML MDV SQ SCH (06:45)
[2017-05-22] MEDS: SEVELAMER CARBONATE 800 MG TAB (FP) PO SCH ×3 (06:51→17:26)
[2017-05-22] MEDS: LEVOTHYROXINE NA 75 MCG TABLET (FP) PO SCH (07:27)
[2017-05-22] MEDS: MIDODRINE HCL 5 MG TABLET PO SCH ×3 (07:38→17:25)
[2017-05-22] MEDS ORDERED: INSULIN REGULAR HUMAN 100 UNITS/ML *VIAL SQ PRN (08:47)
--- NOTE | 2017-05-22 08:51 | PN ---
Progress Note (short form) - Note Progress Note: CBC, BMP 05/21/17 08:00 05/21/17 08:00 Vital Signs Period Temp Pulse Resp BP Sys/Lopez Pulse Ox Last 24 Hr 98.1 F-98.9 F 53-108 18-20 74-139/33-82 S1S2 irreg.irreg. lungs cta ant abd distended +bs but not tense tr pedal edema awake alert imp esrd severe cardiomyopathy chronic hypotension dm hypothyroidism chr pain, neuropathy end of life care, DNR/DNI cont pain medication hd pleurex cath today hd tomorrow dc planning home, pt does not want rehab. Problem List - Problems (1) ESRD (end stage renal disease) Code(s): N18.6 - END STAGE RENAL DISEASE (2) Acute hyperkalemia Code(s): E87.5 - HYPERKALEMIA (3) Anemia Code(s): D64.9 - ANEMIA, UNSPECIFIED Qualifiers: Anemia type: due to chronic kidney disease Chronic kidney disease stage: on chronic dialysis Qualified Code(s): N18.6 - End stage renal disease (4) Ascites Code(s): R18.8 - OTHER ASCITES Qualifiers: Ascites type: other type Qualified Code(s): R18.8 - Other ascites (5) Atrial fibrillation Code(s): I48.91 - UNSPECIFIED ATRIAL FIBRILLATION Qualifiers: Atrial fibrillation type: persistent Qualified Code(s): I48.1 - Persistent atrial fibrillation (6) Bradycardia Code(s): R00.1 - BRADYCARDIA, UNSPECIFIED (7) Chronic hyperkalemia Code(s): E87.5 - HYPERKALEMIA (8) Cirrhosis Code(s): K74.60 - UNSPECIFIED CIRRHOSIS OF LIVER Qualifiers: Hepatic cirrhosis type: unspecified hepatic cirrhosis Ascites presence: with ascites Qualified Code(s): K74.60 - Unspecified cirrhosis of liver (9) Congestive heart failure Code(s): I50.9 - HEART FAILURE, UNSPECIFIED Qualifiers: Congestive heart failure type: systolic Congestive heart failure chronicity : chronic Qualified Code(s): I50.22 - Chronic systolic (congestive) heart failure
[2017-05-22] MEDS ORDERED: VANCOMYCIN 1,000 MG in DEXTROSE 5%-WATER - 250 ML IVPB ONE (10:00)
[2017-05-22] MEDS ORDERED: LIDOCAINE HCL 1%, 10 MG/ML (20ML VIAL) ONE (11:07)
[2017-05-22] MEDS ORDERED: LIDOCAINE HCL 1%, 10 MG/ML (50 mL VIAL) SQ ONE (11:08)
--- NOTE | 2017-05-22 11:27 | PROC ---
Procedure Note Procedure: Informed consent obtained prior to removal of permacatheter and placed in his paper chart. INR 1.2 Left chest prepped and draped in usual sterile fashion. Local anest used --> 1% lido (total of 10mg) Permacath cuff dissescted from subcutaneous tissue. Permacath removed with distal tip intact. Direct pressure held for 10 mins --> + hemostasis. Occlusive dressing applied. Tolerated procedure well.
[2017-05-22] MEDS: LACTULOSE 20 GM/30 ML UDC (FOR ORAL USE ONLY) PO SCH (12:23)
[2017-05-22 12:28] LABS: MCH 26.7 pg (25.7-33.7); MCHC 29.2 g/dl (32.0-35.9); MEAN CELL VOLUME 91.4 fl (80-96); MEAN PLT VOLUME 8.8 fl (7.5-11.1); PLATELET COUNT 74 K/MM3 (134-434); RDW 20.9 % (11.9-15.9); WHITE BLOOD COUNT 11.5 K/mm3 (4.0-10.0)
[2017-05-22] MEDS: AMIODARONE HCL 200 MG TABLET (FP) PO SCH (12:30)
[2017-05-22 13:03] LABS: ALBUMIN 3.1 g/dl (3.4-5.0); ALK PHOS 94 U/L (45-117); ANION GAP 18 (8-16); BILIRUBIN,TOTAL 0.8 mg/dL (0.2-1.0); CALCIUM 7.8 mg/dL (8.5-10.1); CO2 23 mmol/L (21-32); CREATININE 6.3 mg/dL (0.7-1.3); GLUCOSE,RANDOM 149 mg/dL (74-106); SGOT/AST 28 U/L (15-37); SGPT/ALT 27 U/L (12-78); TOT PROT 7.4 g/dl (6.4-8.2)
[2017-05-22 14:44] LABS: PERITONEAL FLUID LYMPHOCYTE 31 %; PERITONEAL FLUID MACROPHAGE 61 %; PERITONEAL FLUID NEUTROPHIL 8 %
[2017-05-22 15:08] LABS: PLATELET ESTIMATE DECREASED; TOTAL CELLS COUNTED 100
--- NOTE | 2017-05-22 15:37 | PN ---
Progress Note (short form) - Note Progress Note: ID Consult dictated SBP Possible RLL pneumonia ESRD Chronic liver disease with ascites Await ascitic fluid c/s Quantiferon Empiric cefoxitin
[2017-05-22] MEDS ORDERED: CEFOXITIN SODIUM 1 GM in DEXTROSE 5%-WATER - 100 ML IVPB SCH (16:00)
--- NOTE | 2017-05-22 16:15 | CONS ---
INFECTIOUS DISEASE CONSULTATION DATE OF CONSULTATION: DATE OF DICTATION: 05/22/2017 HISTORY OF PRESENT ILLNESS: The patient is a 62-year-old male with multiple medical comorbidities including end-stage renal disease on hemodialysis, chronic liver disease with ascites, heart disease, evaluated for fever. The patient was admitted on May 15, 2017, with complaints of abdominal pain, nausea, vomiting, and altered mental status. In the emergency room, he was hypotensive, requiring fluids. He was also hypoxemic with O2 saturation in the 80s. He was treated for possible volume overload. Chest x-ray showed possible right lower lobe infiltrate. A CAT scan of the abdomen and pelvis done for his abdominal pain showed a small right pleural effusion, right lower lobe consolidation, ascites, and splenomegaly. His course was complicated by increasing ascites. He was taken down to the interventional radiology department for a paracentesis. Prior to the procedure, he spiked a temperature of 101.2. Patient complains of diffuse abdominal pain. He does not appear to be in any acute respiratory distress, and no cough was reported. He was empirically treated with vancomycin. PAST MEDICAL HISTORY: Positive for end-stage renal disease on hemodialysis, atrial fibrillation, coronary artery disease, insulin-dependent diabetes mellitus, cirrhosis, dilated cardiomyopathy, hypertension, congestive heart failure. PAST SURGICAL HISTORY: Status post left upper extremity AV fistula. He had a PermCath which has just been removed, a history of ICD, cholecystectomy, and coronary artery bypass. ALLERGIES: No known allergies. MEDICATIONS: Carafate, Synthroid, Coumadin, insulin, amiodarone, lactulose. SOCIAL HISTORY: Lives at home. He is a nonsmoker. SYSTEMS REVIEW: Neurologic: Positive for altered mental status. No loss of consciousness or seizure activity. Cardiac: Negative chest pain or palpitations. Respiratory: Negative cough or sputum production. Gastrointestinal: As per HPI. Genitourinary: End-stage renal disease on hemodialysis. LABORATORY DATA: White count 11.5, hematocrit 27.4, platelet count 74. BUN 63, creatinine 6.3. Ascitic fluid analysis: White cells 1032, neutrophils 8%, protein 5, glucose 200, LDH 79. Cultures are pending. Liver enzymes normal. PHYSICAL EXAMINATION: General: He is chronically ill-appearing. Vital Signs: T-max 101.2; blood pressure 81/39; pulse 110, regular; respirations 20 per minute. HEENT: Sclerae are anicteric. Heart: Sounds S1, S2. Lungs: A few crepitations at the right base. Left lung clear. Abdomen: Grossly distended with ascites. Diffusely tender. No rebound or rigidity. Extremities: Negative for edema. IMPRESSION: 1. Spontaneous bacterial peritonitis. 2. Possible right lower lobe infiltrate. 3. Status post hepatic encephalopathy, improved. 4. End-stage renal disease on hemodialysis. 5. Chronic liver disease with ascites. The presence of over 1000 white cells in the ascitic fluid consistent with subacute bacterial peritonitis. Patient's altered mental status may have been the result of peritonitis with hepatic encephalopathy. Await ascitic fluid culture. Will empirically treat with ceftriaxone, adjusted for end-stage renal disease. Followup chest x-ray. We will obtain QuantiFERON. Will follow. Thank you for the kind referral. CLAUDIA MORALES M.D. [id number]
--- NOTE | 2017-05-22 16:38 | PN ---
Progress Note (short form) - Note Progress Note: RENAL 62 WITH END STAGE ischemic cardiomyopathy dialyzed yesterday today spiked temp permcath removed seen by ID Getting abx Follow cultures POst ascitic fluid tap will follow
[2017-05-23] MEDS: ACETAMINOPHEN 325 MG TABLET (FP) PO PRN ×3 (03:34→22:16)
[2017-05-23] MEDS: oxyCODONE HCL 5 MG TABLET PO PRN ×3 (03:34→22:16)
[2017-05-23] MEDS: LEVOTHYROXINE NA 75 MCG TABLET (FP) PO SCH (06:11)
[2017-05-23] MEDS: SEVELAMER CARBONATE 800 MG TAB (FP) PO SCH ×3 (06:11→17:21)
[2017-05-23] MEDS: INSULIN DETEMIR 100 UNITS/ML MDV SQ SCH (06:20)
[2017-05-23] MEDS: MIDODRINE HCL 5 MG TABLET PO SCH ×3 (06:59→17:22)
[2017-05-23] MEDS ORDERED: PIPERACILLIN/TAZOB 2.25 GM 2.25 GM/50 ML BAG IVPB SCH (08:45)
[2017-05-23] MEDS ORDERED: EPOETIN ALFA 20,000 UNIT/1 ML VIAL IVPUSH ONE (09:00)
--- NOTE | 2017-05-23 09:18 | PN ---
Progress Note (short form) - Note Progress Note: CBC, BMP 05/22/17 12:09 05/22/17 12:09 Vital Signs Period Temp Pulse Resp BP Sys/Lopez Pulse Ox Last 24 Hr 97.4 F-100.8 F 79-117 16-20 84-140/37-73 S1S2 irreg.irreg. lungs cta ant abd distended +bs but not tense tr pedal edema awake alert feels weak seen at hd imp fever yesteday-1 set of bcx with gram negative bacilli esrd severe end stage cardiomyopathy chronic hypotension dm hypothyroidism chr pain, neuropathy end of life care, DNR/DNI iv abx hd perma cath was removed yesterday pleurex cath was postponed due to fever d/w pt Problem List - Problems (1) ESRD (end stage renal disease) Code(s): N18.6 - END STAGE RENAL DISEASE (2) Acute hyperkalemia Code(s): E87.5 - HYPERKALEMIA (3) Anemia Code(s): D64.9 - ANEMIA, UNSPECIFIED Qualifiers: Anemia type: due to chronic kidney disease Chronic kidney disease stage: on chronic dialysis Qualified Code(s): N18.6 - End stage renal disease (4) Ascites Code(s): R18.8 - OTHER ASCITES Qualifiers: Ascites type: other type Qualified Code(s): R18.8 - Other ascites (5) Atrial fibrillation Code(s): I48.91 - UNSPECIFIED ATRIAL FIBRILLATION Qualifiers: Atrial fibrillation type: persistent Qualified Code(s): I48.1 - Persistent atrial fibrillation (6) Bradycardia Code(s): R00.1 - BRADYCARDIA, UNSPECIFIED (7) Chronic hyperkalemia Code(s): E87.5 - HYPERKALEMIA (8) Cirrhosis Code(s): K74.60 - UNSPECIFIED CIRRHOSIS OF LIVER Qualifiers: Hepatic cirrhosis type: unspecified hepatic cirrhosis Ascites presence: with ascites Qualified Code(s): K74.60 - Unspecified cirrhosis of liver (9) Congestive heart failure Code(s): I50.9 - HEART FAILURE, UNSPECIFIED Qualifiers: Congestive heart failure type: systolic Congestive heart failure chronicity : chronic Qualified Code(s): I50.22 - Chronic systolic (congestive) heart failure
[2017-05-23] MEDS: PIPERACILLIN/TAZOB 2.25 GM 2.25 GM in DEXTROSE 5%-WATER - 50 ML IVPB SCH ×2 (10:17→17:22)
[2017-05-23] MEDS: SODIUM POLYSTYRENE SULFONATE 15 GM/60 ML BOTTLE PO SCH (10:17)
[2017-05-23] MEDS: LACTULOSE 20 GM/30 ML UDC (FOR ORAL USE ONLY) PO SCH ×2 (10:17→17:22)
[2017-05-23] MEDS: AMIODARONE HCL 200 MG TABLET (FP) PO SCH (10:17)
[2017-05-23] MEDS: VITAMIN B COMP W-C 1 EA TABLET PO SCH (10:17)
--- NOTE | 2017-05-23 12:05 | PN ---
Progress Note, Physician History of Present Illness: Lab reports +BC GNR, GPCC Much more awake and alert today No focal complaint Low grade temp noted - Current Medication List Current Medications: Active Medications Acetaminophen (Tylenol -) 325 mg PO Q6H PRN PRN Reason: PAIN Last Admin: 05/23/17 11:35 Dose: 325 mg Amiodarone HCl (Cordarone -) 100 mg PO DAILY [facility] Last Admin: 05/23/17 10:17 Dose: Not Given Piperacillin Sod/Tazobactam (Sod 2.25 gm/ Dextrose) 50 mls @ 100 mls/hr IVPB Q8H-IV [facility] Last Admin: 05/23/17 10:17 Dose: Not Given Insulin Detemir (Levemir Vial) 10 units SQ DAILY@0700 [facility] Last Admin: 05/23/17 06:20 Dose: 10 units Insulin Human Regular (Novolin R Vial *For Ivpush Or Iv Drip Only*) 1 units SQ ACHS PRN; Protocol PRN Reason: ELEVATED BLOOD SUGAR Lactulose (Cephulac (Oral Use)) 20 gm PO DAILY [facility] Last Admin: 05/23/17 10:17 Dose: Not Given Levothyroxine Sodium (Synthroid -) 75 mcg PO DAILY@0700 [facility] Last Admin: 05/23/17 06:11 Dose: 75 mcg Midodrine (Proamatine -) 10 mg PO BID-MID [facility] Last Admin: 05/23/17 10:17 Dose: Not Given Multivit/Ca Carb/B Cmplx/FA/Prenat (Nephro-Adalberto -) 1 tablet PO DAILY [facility] Last Admin: 05/23/17 10:17 Dose: Not Given Ondansetron HCl (Zofran Injection) 4 mg IVPUSH Q6H PRN PRN Reason: NAUSEA AND/OR VOMITING Last Admin: 05/18/17 17:51 Dose: 4 mg Oxycodone HCl (Roxicodone -) 10 mg PO Q6H PRN PRN Reason: PAIN Last Admin: 05/23/17 11:35 Dose: 10 mg Sevelamer Carbonate (Renvela -) 800 mg PO TIDAC [facility] Last Admin: 05/23/17 11:36 Dose: 800 mg Sodium Polystyrene Sulfonate (Kayexalate -) 15 gm PO Q2D [facility] Last Admin: 05/23/17 10:17 Dose: Not Given - Objective Vital Signs: Vital Signs Temperature 97.6 F 05/23/17 07:50 Pulse Rate 82 05/23/17 11:00 Respiratory Rate 18 05/23/17 11:00 Blood Pressure 115/55 05/23/17 11:00 O2 Sat by Pulse Oximetry (%) 97 05/20/17 21:00 Constitutional: Yes: No Distress Cardiovascular: Yes: Regular Rate and Rhythm, S1, S2 Respiratory: Yes: Diminished Gastrointestinal: Yes: Normal Bowel Sounds, Soft, Other (+ ascites no tenderness elicited) Labs: CBC, BMP 05/22/17 12:09 05/22/17 12:09 INR, PTT INR 1.19 (0.82-1.09) H D 05/21/17 08:00 Assessment/Plan Polymicrobial bacteremia/ sepsis ESRD Peritonitis Chronic liver disease S/P hepatic encephalopathy Await blood c/s result Continue zosyn. Received vancomycin yesterday
[2017-05-23] MEDS ORDERED: CEFOXITIN SODIUM 1 GM in DEXTROSE 5%-WATER - 100 ML IVPB SCH (16:00)
--- NOTE | 2017-05-23 17:09 | PATH ---
Cytology Non-Gynecological Report Patient Name: YANET ELIAS [facility]. Rec. #: [id number] /Age/Gender: 1955 (Age: 62) / M Account: [id number] Location: [facility] MED/SURG Taken: 05/22/2017 Received: 05/22/2017 Reported: 05/23/2017 Physicians: Cecilia Teran M.D. Specimen(s) Received A: PERITONEAL FLUID B: PERITONEAL FLUID Clinical History Ascites, CHF, s/p CABG Final Diagnosis A. ABDOMINAL FLUID, PARACENTESIS: SATISFACTORY FOR EVALUATION. NO MALIGNANT CELLS IDENTIFIED. MESOTHELIAL CELLS, NEUTROPHILS, AND LYMPHOCYTES PRESENT. B. ABDOMINAL FLUID, PARACENTESIS: SATISFACTORY FOR EVALUATION. NO MALIGNANT CELLS IDENTIFIED. MESOTHELIAL CELLS, NEUTROPHILS, AND LYMPHOCYTES PRESENT. Electronically Signed Ambar Waller M.D. Gross Description A. Approximately 50 cc of yellow fluid received fixed in 50% alcohol. Two cytofunnels and one cellblock prepared. B. Approximately 1500 cc of yellow fluid received fresh. Two cytofunnels and one cellblock prepared.
[2017-05-23] MEDS ORDERED: PT OWN MED DRAWER 7, Y5N ONE (17:18)
[2017-05-24] MEDS: PIPERACILLIN/TAZOB 2.25 GM 2.25 GM in DEXTROSE 5%-WATER - 50 ML IVPB SCH ×3 (02:12→17:52)
[2017-05-24] MEDS: oxyCODONE HCL 5 MG TABLET PO PRN ×3 (04:31→21:23)
[2017-05-24] MEDS: ACETAMINOPHEN 325 MG TABLET (FP) PO PRN ×3 (04:31→21:24)
[2017-05-24] MEDS: SEVELAMER CARBONATE 800 MG TAB (FP) PO SCH ×3 (06:38→17:52)
[2017-05-24] MEDS: LEVOTHYROXINE NA 75 MCG TABLET (FP) PO SCH (06:38)
[2017-05-24] MEDS: INSULIN DETEMIR 100 UNITS/ML MDV SQ SCH (06:38)
[2017-05-24] MEDS ORDERED: INSULIN DETEMIR 100 UNITS/ML MDV SQ ONE (06:49)
[2017-05-24] MEDS ORDERED: INSULIN (NOVOLOG MIX 70/30) 100 UNITS/ML MDV SQ ONE (06:49)
[2017-05-24] MEDS ORDERED: INSULIN (NOVOLOG) ASPART 100 UNITS/ML 10ML VIAL ONE (06:49)
--- NOTE | 2017-05-24 06:57 | PN ---
Progress Note (short form) - Note Progress Note: Vital Signs Period Temp Pulse Resp BP Sys/Lopez Pulse Ox Last 24 Hr 97.3 F-99.2 F 79-111 18-22 73-140/38-73 96-100 S1S2 irreg.irreg. lungs cta ant abd distended +bs but not tense tr pedal edema awake alert feels weak iv line in left foot imp gram negative bacteremia ?SBP source esrd severe end stage cardiomyopathy chronic hypotension dm hypothyroidism chr pain, neuropathy end of life care, DNR/DNI iv abx hd repeat blood cultures tomorrow at HD d/w pt Problem List - Problems (1) ESRD (end stage renal disease) Code(s): N18.6 - END STAGE RENAL DISEASE (2) Acute hyperkalemia Code(s): E87.5 - HYPERKALEMIA (3) Anemia Code(s): D64.9 - ANEMIA, UNSPECIFIED Qualifiers: Anemia type: due to chronic kidney disease Chronic kidney disease stage: on chronic dialysis Qualified Code(s): N18.6 - End stage renal disease (4) Ascites Code(s): R18.8 - OTHER ASCITES Qualifiers: Ascites type: other type Qualified Code(s): R18.8 - Other ascites (5) Atrial fibrillation Code(s): I48.91 - UNSPECIFIED ATRIAL FIBRILLATION Qualifiers: Atrial fibrillation type: persistent Qualified Code(s): I48.1 - Persistent atrial fibrillation (6) Bradycardia Code(s): R00.1 - BRADYCARDIA, UNSPECIFIED (7) Chronic hyperkalemia Code(s): E87.5 - HYPERKALEMIA (8) Cirrhosis Code(s): K74.60 - UNSPECIFIED CIRRHOSIS OF LIVER Qualifiers: Hepatic cirrhosis type: unspecified hepatic cirrhosis Ascites presence: with ascites Qualified Code(s): K74.60 - Unspecified cirrhosis of liver (9) Congestive heart failure Code(s): I50.9 - HEART FAILURE, UNSPECIFIED Qualifiers: Congestive heart failure type: systolic Congestive heart failure chronicity : chronic Qualified Code(s): I50.22 - Chronic systolic (congestive) heart failure
--- NOTE | 2017-05-24 08:54 | PN ---
Progress Note (short form) - Note Progress Note: RENAL 62 WITH END STAGE ischemic cardiomyopathy dialyzed yesterday 3 kg removed Blood cultures gram neg bacilli and gram pos cocci BOTH On iV zosyn q 8 via a left foot heplock Will dialyze in am REsend cultures NO SBP Permcath out IF loses IV after 24 to 48 hrs and cultures turn neg then can dose abx at HD May dialyze daily to get abx in AWake alert chest clear Abd distended Left arm AVG ok Ext pos edema labs noted Guaic pos OFF anticoagulation case d/w nurse
[2017-05-24] MEDS ORDERED: EPOETIN ALFA 20,000 UNIT/1 ML VIAL SQ ONE (09:15)
[2017-05-24] MEDS ORDERED: PT OWN MED DRAWER 7, Y5N ONE ×2 (09:45→17:50)
[2017-05-24] MEDS: MIDODRINE HCL 5 MG TABLET PO SCH ×2 (09:50→17:51)
[2017-05-24] MEDS: LACTULOSE 20 GM/30 ML UDC (FOR ORAL USE ONLY) PO SCH (09:50)
[2017-05-24] MEDS: AMIODARONE HCL 200 MG TABLET (FP) PO SCH (09:50)
[2017-05-24] MEDS: VITAMIN B COMP W-C 1 EA TABLET PO SCH (09:51)
--- NOTE | 2017-05-24 15:45 | PN ---
Progress Note, Physician History of Present Illness: OOB in chair Awake and alert today No focal complaint Temps down Afebrile BC LF, enterococcus - Current Medication List Current Medications: Active Medications Acetaminophen (Tylenol -) 325 mg PO Q6H PRN PRN Reason: PAIN Last Admin: 05/24/17 12:44 Dose: 325 mg Amiodarone HCl (Cordarone -) 100 mg PO DAILY [facility] Last Admin: 05/24/17 09:50 Dose: 100 mg Epoetin Chevy (Procrit -) 20,000 unit SQ ONCE ONE Stop: 05/24/17 09:16 Piperacillin Sod/Tazobactam (Sod 2.25 gm/ Dextrose) 50 mls @ 100 mls/hr IVPB Q8H-IV [facility] Last Admin: 05/24/17 09:50 Dose: 100 mls/hr Insulin Detemir (Levemir Vial) 10 units SQ DAILY@0700 [facility] Last Admin: 05/24/17 06:38 Dose: 10 units Insulin Human Regular (Novolin R Vial *For Ivpush Or Iv Drip Only*) 1 units SQ ACHS PRN; Protocol PRN Reason: ELEVATED BLOOD SUGAR Lactulose (Cephulac (Oral Use)) 20 gm PO DAILY [facility] Last Admin: 05/24/17 09:50 Dose: 20 gm Levothyroxine Sodium (Synthroid -) 75 mcg PO DAILY@0700 [facility] Last Admin: 05/24/17 06:38 Dose: 75 mcg Midodrine (Proamatine -) 10 mg PO BID-MID [facility] Last Admin: 05/24/17 09:50 Dose: 10 mg Multivit/Ca Carb/B Cmplx/FA/Prenat (Nephro-Adalberto -) 1 tablet PO DAILY [facility] Last Admin: 05/24/17 09:51 Dose: 1 tablet Ondansetron HCl (Zofran Injection) 4 mg IVPUSH Q6H PRN PRN Reason: NAUSEA AND/OR VOMITING Last Admin: 05/18/17 17:51 Dose: 4 mg Oxycodone HCl (Roxicodone -) 10 mg PO Q6H PRN PRN Reason: PAIN Last Admin: 05/24/17 12:44 Dose: 10 mg Sevelamer Carbonate (Renvela -) 800 mg PO TIDAC [facility] Last Admin: 11/16/17 12:42 Dose: 800 mg Sodium Polystyrene Sulfonate (Kayexalate -) 15 gm PO Q2D [facility] Last Admin: 05/23/17 10:17 Dose: Not Given - Objective Vital Signs: Vital Signs Temperature 98.1 F 05/24/17 14:42 Pulse Rate 103 H 05/24/17 14:42 Respiratory Rate 18 05/24/17 14:42 Blood Pressure 102/69 05/24/17 14:42 O2 Sat by Pulse Oximetry (%) 98 05/24/17 09:00 Constitutional: Yes: No Distress Cardiovascular: Yes: Regular Rate and Rhythm, S1, S2 Respiratory: Yes: Diminished Gastrointestinal: Yes: Other (Distended, tense with ascites). No: Tenderness Edema: Yes Integumentary: Yes: Other (+pustule, induration at previous catheter site R neck ) Labs: CBC, BMP 05/22/17 12:09 05/22/17 12:09 INR, PTT INR 1.19 (0.82-1.09) H D 05/21/17 08:00 Assessment/Plan Polymicrobial bacteremia/ sepsis ESRD Peritonitis Chronic liver disease S/P hepatic encephalopathy Await final blood c/s result Continue zosyn. Received vancomycin. Check level at HD
[2017-05-25] MEDS ORDERED: PT OWN MED DRAWER 7, Y5N ONE ×3 (01:21→18:01)
[2017-05-25] MEDS: PIPERACILLIN/TAZOB 2.25 GM 2.25 GM in DEXTROSE 5%-WATER - 50 ML IVPB SCH ×2 (01:32→09:17)
[2017-05-25] MEDS: ACETAMINOPHEN 325 MG TABLET (FP) PO PRN ×3 (02:24→18:02)
[2017-05-25] MEDS: oxyCODONE HCL 5 MG TABLET PO PRN ×3 (02:26→17:58)
[2017-05-25] MEDS: LEVOTHYROXINE NA 75 MCG TABLET (FP) PO SCH (06:00)
[2017-05-25] MEDS: SEVELAMER CARBONATE 800 MG TAB (FP) PO SCH ×3 (06:01→17:59)
[2017-05-25] MEDS: INSULIN DETEMIR 100 UNITS/ML MDV SQ SCH (06:16)
[2017-05-25] MEDS ORDERED: EPOETIN ALFA 20,000 UNIT/1 ML VIAL SQ ONE ×2 (09:15→16:45)
[2017-05-25] MEDS: AMIODARONE HCL 200 MG TABLET (FP) PO SCH (09:15)
[2017-05-25] MEDS: VITAMIN B COMP W-C 1 EA TABLET PO SCH (09:16)
[2017-05-25] MEDS: MIDODRINE HCL 5 MG TABLET PO SCH ×2 (09:17→17:59)
[2017-05-25] MEDS: LACTULOSE 20 GM/30 ML UDC (FOR ORAL USE ONLY) PO SCH (09:19)
--- NOTE | 2017-05-25 09:31 | PN ---
Progress Note (short form) - Note Progress Note: CBC, BMP 05/22/17 12:09 05/22/17 12:09 Microbiology 05/22/17 13:52 Blood Culture - Preliminary Blood - Peripheral Venous Group D Strep Or Entero Coccus Lactose Fermenting Neg Bacilli 05/22/17 10:50 Gram Stain - Final Peritoneal Fluid Body Fluid Culture - Final NO GROWTH OF AEROBIC ORGANISMS AFTER 48 HOURS INCUBATION Anaerobic Culture - Final NO ANAEROBES WERE ISOLATED 05/22/17 10:50 AFB Smear Concentration - Final Peritoneal Fluid Mycobacterial Culture - Preliminary 05/22/17 12:09 Blood Culture - Preliminary Blood - Peripheral Venous Lactose Fermenting Neg Bacilli Vital Signs Period Temp Pulse Resp BP Sys/Lopez Pulse Ox Last 24 Hr 97.4 F-98.6 F 60-103 18-18 75-102/35-69 98 S1S2 irreg.irreg. lungs cta ant abd distended more tense tr pedal edema awake alert feels weak iv line in left foot blisters on abdominal wall, where tape was imp gram negative bacteremia ?SBP source esrd severe end stage cardiomyopathy chronic hypotension dm hypothyroidism chr pain, neuropathy end of life care, DNR/DNI iv abx hd repeat blood cultures at HD d/w pt Problem List - Problems (1) ESRD (end stage renal disease) Code(s): N18.6 - END STAGE RENAL DISEASE (2) Acute hyperkalemia Code(s): E87.5 - HYPERKALEMIA (3) Anemia Code(s): D64.9 - ANEMIA, UNSPECIFIED Qualifiers: Anemia type: due to chronic kidney disease Chronic kidney disease stage: on chronic dialysis Qualified Code(s): N18.6 - End stage renal disease (4) Ascites Code(s): R18.8 - OTHER ASCITES Qualifiers: Ascites type: other type Qualified Code(s): R18.8 - Other ascites (5) Atrial fibrillation Code(s): I48.91 - UNSPECIFIED ATRIAL FIBRILLATION Qualifiers: Atrial fibrillation type: persistent Qualified Code(s): I48.1 - Persistent atrial fibrillation (6) Bradycardia Code(s): R00.1 - BRADYCARDIA, UNSPECIFIED (7) Chronic hyperkalemia Code(s): E87.5 - HYPERKALEMIA (8) Cirrhosis Code(s): K74.60 - UNSPECIFIED CIRRHOSIS OF LIVER Qualifiers: Hepatic cirrhosis type: unspecified hepatic cirrhosis Ascites presence: with ascites Qualified Code(s): K74.60 - Unspecified cirrhosis of liver (9) Congestive heart failure Code(s): I50.9 - HEART FAILURE, UNSPECIFIED Qualifiers: Congestive heart failure type: systolic Congestive heart failure chronicity : chronic Qualified Code(s): I50.22 - Chronic systolic (congestive) heart failure
[2017-05-25] MEDS: BACITRACIN 15 GM TUBE TOPICAL OINTMENT TP SCH ×3 (13:38→22:00)
--- NOTE | 2017-05-25 13:40 | PN ---
Progress Note, Physician History of Present Illness: OOB in chair Awake and alert No focal complaint Temps down Afebrile BC Klebsiella, enterococcus - Current Medication List Current Medications: Active Medications Acetaminophen (Tylenol -) 325 mg PO Q6H PRN PRN Reason: PAIN Last Admin: 05/25/17 09:14 Dose: 325 mg Amiodarone HCl (Cordarone -) 100 mg PO DAILY [facility] Last Admin: 05/25/17 09:15 Dose: 100 mg Bacitracin (Bacitracin -) 1 applic TP BID [facility] Epoetin Chevy (Procrit -) 20,000 unit SQ ONCE ONE Stop: 05/24/17 09:16 Ampicillin Sodium/Sulbactam (Sodium 3 gm/ Sodium Chloride) 100 mls @ 200 mls/ hr IVPB DAILY [facility] Insulin Detemir (Levemir Vial) 10 units SQ DAILY@0700 [facility] Last Admin: 05/25/17 06:16 Dose: 10 units Insulin Human Regular (Novolin R Vial *For Ivpush Or Iv Drip Only*) 1 units SQ ACHS PRN; Protocol PRN Reason: ELEVATED BLOOD SUGAR Lactulose (Cephulac (Oral Use)) 20 gm PO DAILY [facility] Last Admin: 05/25/17 09:19 Dose: 20 gm Levothyroxine Sodium (Synthroid -) 75 mcg PO DAILY@0700 [facility] Last Admin: 05/25/17 06:00 Dose: 75 mcg Midodrine (Proamatine -) 10 mg PO BID-MID [facility] Last Admin: 05/25/17 09:17 Dose: 10 mg Multivit/Ca Carb/B Cmplx/FA/Prenat (Nephro-Adalberto -) 1 tablet PO DAILY [facility] Last Admin: 05/25/17 09:16 Dose: 1 tablet Ondansetron HCl (Zofran Injection) 4 mg IVPUSH Q6H PRN PRN Reason: NAUSEA AND/OR VOMITING Last Admin: 05/18/17 17:51 Dose: 4 mg Oxycodone HCl (Roxicodone -) 10 mg PO Q6H PRN PRN Reason: PAIN Last Admin: 05/25/17 09:14 Dose: 10 mg Sevelamer Carbonate (Renvela -) 800 mg PO TIDAC [facility] Last Admin: 05/25/17 06:01 Dose: 800 mg Sodium Polystyrene Sulfonate (Kayexalate -) 15 gm PO Q2D [facility] Last Admin: 05/23/17 10:17 Dose: Not Given - Objective Vital Signs: Vital Signs Temperature 97.4 F L 05/25/17 10:30 Pulse Rate 103 H 05/25/17 10:30 Respiratory Rate 18 05/25/17 10:30 Blood Pressure 79/61 05/25/17 10:30 O2 Sat by Pulse Oximetry (%) 98 05/24/17 20:43 Constitutional: Yes: No Distress Cardiovascular: Yes: Regular Rate and Rhythm, S1, S2 Respiratory: Yes: CTA Bilaterally Gastrointestinal: Yes: Normal Bowel Sounds, Other (distended; tense ascites) Edema: Yes Labs: CBC, BMP 05/22/17 12:09 05/22/17 12:09 INR, PTT INR 1.19 (0.82-1.09) H D 05/21/17 08:00 Assessment/Plan Polymicrobial bacteremia/ sepsis ESRD Peritonitis Chronic liver disease S/P hepatic encephalopathy Repeat BC Unasyn, adjusted for ESRD
[2017-05-25 15:00] LABS: BASOPHIL 0.9 % (0-2.0); EOSINOPHIL 3.6 % (0-4.5); MCH 26.7 pg (25.7-33.7); MCHC 29.8 g/dl (32.0-35.9); MEAN CELL VOLUME 89.7 fl (80-96); MEAN PLT VOLUME 10.8 fl (7.5-11.1); NEUTROPHILS 78.9 % (42.8-82.8); PLATELET COUNT 84 K/MM3 (134-434); RDW 20.5 % (11.9-15.9); WHITE BLOOD COUNT 9.6 K/mm3 (4.0-10.0)
[2017-05-25 15:16] LABS: ALBUMIN 2.7 g/dl (3.4-5.0); ANION GAP 20 (8-16); BILIRUBIN,TOTAL 0.5 mg/dL (0.2-1.0); CALCIUM 7.6 mg/dL (8.5-10.1); CO2 21 mmol/L (21-32); GLUCOSE,RANDOM 244 mg/dL (74-106); SGOT/AST 26 U/L (15-37); SGPT/ALT 40 U/L (12-78); TOT PROT 6.9 g/dl (6.4-8.2)
[2017-05-25 15:21] LABS: ALK PHOS 104 U/L (45-117)
[2017-05-25 15:30] LABS: CREATININE 8.2 mg/dL (0.7-1.3)
[2017-05-25] MEDS: SODIUM POLYSTYRENE SULFONATE 15 GM/60 ML BOTTLE PO SCH (18:03)
[2017-05-25] MEDS: AMPICILLIN NA/SULBACTAM NA 3 GM in SODIUM CHLORIDE 100 ML IVPB SCH ×2 (18:37→19:18)
[2017-05-25] MEDS ORDERED: oxyCODONE HCL 5 MG TABLET PO ONE (23:00)
[2017-05-25] MEDS: ONDANSETRON 4 MG/2 ML VIAL IVPUSH PRN (23:33)
[2017-05-26] MEDS: INSULIN DETEMIR 100 UNITS/ML MDV SQ SCH (06:16)
[2017-05-26] MEDS: INSULIN SLIDING SCALE (NOVOLOG) 1 VIAL SQ SCH ×4 (06:17→21:28)
[2017-05-26] MEDS: ACETAMINOPHEN 325 MG TABLET (FP) PO PRN ×2 (06:17→14:05)
[2017-05-26] MEDS: SEVELAMER CARBONATE 800 MG TAB (FP) PO SCH ×3 (06:18→17:11)
[2017-05-26] MEDS: LEVOTHYROXINE NA 75 MCG TABLET (FP) PO SCH (06:18)
[2017-05-26] MEDS: oxyCODONE HCL 5 MG TABLET PO PRN ×3 (06:18→21:25)
--- NOTE | 2017-05-26 07:54 | PN ---
Progress Note (short form) - Note Progress Note: CBC, BMP 05/25/17 14:30 05/25/17 14:30 Vital Signs Period Temp Pulse Resp BP Sys/Lopez Pulse Ox Last 24 Hr 97.4 F-99.6 F 58-106 18-20 71-151/37-77 97 S1S2 irreg.irreg. lungs cta ant abd distended more tense tr pedal edema awake alert feels weak iv line in left wrist arousable but weaker c/o left arm pain imp gram negative bacteremia SBP source esrd severe end stage cardiomyopathy chronic hypotension dm hypothyroidism chr pain, neuropathy end of life care, DNR/DNI iv abx hd repeat blood cultures at HD were done yesterday d/w pt DNR/DNI add neurontin Problem List - Problems (1) ESRD (end stage renal disease) Code(s): N18.6 - END STAGE RENAL DISEASE (2) Acute hyperkalemia Code(s): E87.5 - HYPERKALEMIA (3) Anemia Code(s): D64.9 - ANEMIA, UNSPECIFIED Qualifiers: Anemia type: due to chronic kidney disease Chronic kidney disease stage: on chronic dialysis Qualified Code(s): N18.6 - End stage renal disease (4) Ascites Code(s): R18.8 - OTHER ASCITES Qualifiers: Ascites type: other type Qualified Code(s): R18.8 - Other ascites (5) Atrial fibrillation Code(s): I48.91 - UNSPECIFIED ATRIAL FIBRILLATION Qualifiers: Atrial fibrillation type: persistent Qualified Code(s): I48.1 - Persistent atrial fibrillation (6) Bradycardia Code(s): R00.1 - BRADYCARDIA, UNSPECIFIED (7) Chronic hyperkalemia Code(s): E87.5 - HYPERKALEMIA (8) Cirrhosis Code(s): K74.60 - UNSPECIFIED CIRRHOSIS OF LIVER Qualifiers: Hepatic cirrhosis type: unspecified hepatic cirrhosis Ascites presence: with ascites Qualified Code(s): K74.60 - Unspecified cirrhosis of liver (9) Congestive heart failure Code(s): I50.9 - HEART FAILURE, UNSPECIFIED Qualifiers: Congestive heart failure type: systolic Congestive heart failure chronicity : chronic Qualified Code(s): I50.22 - Chronic systolic (congestive) heart failure
--- NOTE | 2017-05-26 09:57 | PN ---
Progress Note (short form) - Note Progress Note: quite awake and alert tell my nurse Suzan I want some coffee Vital Signs Period Temp Pulse Resp BP Sys/Lopez Pulse Ox Last 24 Hr 97.4 F-99.6 F 58-106 18-20 71-151/37-77 97 cor-rrr lungs decreased bs at bases abd +ascites, NT +right avf multiple skin excoriations CBC, BMP 05/25/17 14:30 05/25/17 14:30 a/p polymicrobial bacteremia to continue unasyn f/u repeat blood cultures sbp esrd/hd cardiomyopathy dnr/dni d/w dr yoo yesterday and dr rangel today overall prognosis is poor
[2017-05-26] MEDS ORDERED: PT OWN MED DRAWER 7, Y5N ONE (10:33)
[2017-05-26] MEDS: BACITRACIN 15 GM TUBE TOPICAL OINTMENT TP SCH ×2 (10:37→21:27)
[2017-05-26] MEDS: LACTULOSE 20 GM/30 ML UDC (FOR ORAL USE ONLY) PO SCH ×2 (10:38→21:27)
[2017-05-26] MEDS: GABAPENTIN 100 MG CAPSULE (FP) PO SCH ×2 (10:38→10:39)
[2017-05-26] MEDS: MIDODRINE HCL 5 MG TABLET PO SCH ×2 (10:38→17:11)
[2017-05-26] MEDS: AMIODARONE HCL 200 MG TABLET (FP) PO SCH (10:38)
[2017-05-26] MEDS: VITAMIN B COMP W-C 1 EA TABLET PO SCH (10:39)
[2017-05-26] MEDS: AMPICILLIN NA/SULBACTAM NA 3 GM in SODIUM CHLORIDE 100 ML IVPB SCH (10:39)
--- NOTE | 2017-05-26 14:08 | PN ---
Progress Note (short form) - Note Progress Note: RENAL 62 WITH END STAGE ischemic cardiomyopathy dialyzed yesterday 3 kg removed as per HD nurse note but weight is up Abd distented Blood cultures gram neg bacilli klebsiella and gram pos cocci BOTH On IV unasyn Will UF in am and dialyze sunday again REsend cultures NO SBP Permcath out Try and get the abd RACHEL drain in for palliative reasons AWake alert chest clear Abd very distended Rt arm AVG ok Ext pos edema labs noted Guaic pos OFF anticoagulation Hb low was transfused yesterday case d/w PMD
[2017-05-26] MEDS ORDERED: EPOETIN ALFA 20,000 UNIT/1 ML VIAL SQ ONE (14:12)
[2017-05-27] MEDS: oxyCODONE HCL 5 MG TABLET PO PRN ×4 (03:41→23:56)
[2017-05-27] MEDS: INSULIN DETEMIR 100 UNITS/ML MDV SQ SCH (06:08)
[2017-05-27] MEDS: INSULIN SLIDING SCALE (NOVOLOG) 1 VIAL SQ SCH ×4 (06:09→21:50)
[2017-05-27] MEDS: SEVELAMER CARBONATE 800 MG TAB (FP) PO SCH ×3 (06:10→17:19)
[2017-05-27] MEDS: LEVOTHYROXINE NA 75 MCG TABLET (FP) PO SCH (06:10)
[2017-05-27] MEDS: MIDODRINE HCL 5 MG TABLET PO SCH ×3 (06:35→18:08)
--- NOTE | 2017-05-27 06:59 | PN ---
Progress Note (short form) - Note Progress Note: Vital Signs Period Temp Pulse Resp BP Sys/Lopez Pulse Ox Last 24 Hr 97.2 F-98.8 F 58-106 18-20 77-117/43-89 97-97 S1S2 irreg.irreg. lungs cta ant abd distended tense, pt has diarrhea + pedal edema awake alert feels weak iv line in left wrist awake alert imp klebsiella bacteremia SBP source esrd severe end stage cardiomyopathy chronic hypotension dm hypothyroidism chr pain, neuropathy end of life care, DNR/DNI iv abx-switch to type that can be given with HD hd pleurex cath for comfort this week d/w pt and son DNR/DNI add neurontin Problem List - Problems (1) ESRD (end stage renal disease) Code(s): N18.6 - END STAGE RENAL DISEASE (2) Acute hyperkalemia Code(s): E87.5 - HYPERKALEMIA (3) Anemia Code(s): D64.9 - ANEMIA, UNSPECIFIED Qualifiers: Anemia type: due to chronic kidney disease Chronic kidney disease stage: on chronic dialysis Qualified Code(s): N18.6 - End stage renal disease (4) Ascites Code(s): R18.8 - OTHER ASCITES Qualifiers: Ascites type: other type Qualified Code(s): R18.8 - Other ascites (5) Atrial fibrillation Code(s): I48.91 - UNSPECIFIED ATRIAL FIBRILLATION Qualifiers: Atrial fibrillation type: persistent Qualified Code(s): I48.1 - Persistent atrial fibrillation (6) Bradycardia Code(s): R00.1 - BRADYCARDIA, UNSPECIFIED (7) Chronic hyperkalemia Code(s): E87.5 - HYPERKALEMIA (8) Cirrhosis Code(s): K74.60 - UNSPECIFIED CIRRHOSIS OF LIVER Qualifiers: Hepatic cirrhosis type: unspecified hepatic cirrhosis Ascites presence: with ascites Qualified Code(s): K74.60 - Unspecified cirrhosis of liver (9) Congestive heart failure Code(s): I50.9 - HEART FAILURE, UNSPECIFIED Qualifiers: Congestive heart failure type: systolic Congestive heart failure chronicity : chronic Qualified Code(s): I50.22 - Chronic systolic (congestive) heart failure
[2017-05-27] MEDS ORDERED: PT OWN MED DRAWER 7, Y5N ONE ×2 (07:52→17:18)
[2017-05-27 08:45] LABS: BASOPHIL 1.2 % (0-2.0); EOSINOPHIL 2.1 % (0-4.5); MCH 26.4 pg (25.7-33.7); MCHC 29.8 g/dl (32.0-35.9); MEAN CELL VOLUME 88.8 fl (80-96); MEAN PLT VOLUME 10.1 fl (7.5-11.1); NEUTROPHILS 84.2 % (42.8-82.8); PLATELET COUNT 96 K/MM3 (134-434); RDW 20.7 % (11.9-15.9)
[2017-05-27] MEDS: ACETAMINOPHEN 325 MG TABLET (FP) PO PRN ×2 (08:47→17:21)
[2017-05-27 09:37] LABS: ANISOCYTOSIS 3+; HYPOCHROMIA 2+; MACROCYTOSIS 2+; MICROCYTOSIS 1+; TEAR DROP CELLS 1+
[2017-05-27] MEDS: AMIODARONE HCL 200 MG TABLET (FP) PO SCH (11:22)
[2017-05-27] MEDS: SODIUM POLYSTYRENE SULFONATE 15 GM/60 ML BOTTLE PO SCH (11:22)
[2017-05-27] MEDS: LACTULOSE 20 GM/30 ML UDC (FOR ORAL USE ONLY) PO SCH (11:22)
[2017-05-27] MEDS: GABAPENTIN 100 MG CAPSULE (FP) PO SCH (11:22)
[2017-05-27] MEDS: AMPICILLIN NA/SULBACTAM NA 3 GM in SODIUM CHLORIDE 100 ML IVPB SCH (11:29)
[2017-05-27] MEDS: BACITRACIN 15 GM TUBE TOPICAL OINTMENT TP SCH ×2 (11:37→21:50)
[2017-05-27] MEDS: VITAMIN B COMP W-C 1 EA TABLET PO SCH (17:20)
[2017-05-28] MEDS: oxyCODONE HCL 5 MG TABLET PO PRN ×4 (06:00→23:48)
[2017-05-28] MEDS: ACETAMINOPHEN 325 MG TABLET (FP) PO PRN ×5 (06:01→23:48)
[2017-05-28] MEDS: SEVELAMER CARBONATE 800 MG TAB (FP) PO SCH ×4 (06:05→21:23)
[2017-05-28] MEDS: LEVOTHYROXINE NA 75 MCG TABLET (FP) PO SCH (06:05)
[2017-05-28] MEDS: INSULIN DETEMIR 100 UNITS/ML MDV SQ SCH (06:06)
[2017-05-28] MEDS ORDERED: INSULIN (NOVOLOG) ASPART 100 UNITS/ML 10ML VIAL ONE ×3 (06:09→20:37)
[2017-05-28] MEDS: INSULIN SLIDING SCALE (NOVOLOG) 1 VIAL SQ SCH ×4 (06:10→21:20)
--- NOTE | 2017-05-28 09:39 | PN ---
Progress Note (short form) - Note Progress Note: CBC, BMP 05/27/17 06:40 05/25/17 14:30 Vital Signs Period Temp Pulse Resp BP Sys/Lopez Pulse Ox Last 24 Hr 97.2 F-97.6 F 54-121 18-20 77-120/38-52 100 S1S2 irreg.irreg. lungs cta ant abd distended tense + pedal edema awake alert feels weak iv line in left wrist right neck with purulent drainage from old iv site awake alert imp klebsiella bacteremia strep bacteremia repeat bcx on 05.25 negative so far SBP source? esrd severe end stage cardiomyopathy chronic hypotension dm hypothyroidism chr pain, neuropathy end of life care, DNR/DNI iv abx-switch to type that can be given with HD for total of 2 weeks hd pleurex cath if cleared by id d/w pt and son DNR/DNI will need VNS for pleurex care and teaching end stage renal disease, end stage heart disease primary goal is to get pt home and keep him home as much as possible, as comfortably as possible Problem List - Problems (1) ESRD (end stage renal disease) Code(s): N18.6 - END STAGE RENAL DISEASE (2) Acute hyperkalemia Code(s): E87.5 - HYPERKALEMIA (3) Anemia Code(s): D64.9 - ANEMIA, UNSPECIFIED Qualifiers: Anemia type: due to chronic kidney disease Chronic kidney disease stage: on chronic dialysis Qualified Code(s): N18.6 - End stage renal disease (4) Ascites Code(s): R18.8 - OTHER ASCITES Qualifiers: Ascites type: other type Qualified Code(s): R18.8 - Other ascites (5) Atrial fibrillation Code(s): I48.91 - UNSPECIFIED ATRIAL FIBRILLATION Qualifiers: Atrial fibrillation type: persistent Qualified Code(s): I48.1 - Persistent atrial fibrillation (6) Bradycardia Code(s): R00.1 - BRADYCARDIA, UNSPECIFIED (7) Chronic hyperkalemia Code(s): E87.5 - HYPERKALEMIA (8) Cirrhosis Code(s): K74.60 - UNSPECIFIED CIRRHOSIS OF LIVER Qualifiers: Hepatic cirrhosis type: unspecified hepatic cirrhosis Ascites presence: with ascites Qualified Code(s): K74.60 - Unspecified cirrhosis of liver (9) Congestive heart failure Code(s): I50.9 - HEART FAILURE, UNSPECIFIED Qualifiers: Congestive heart failure type: systolic Congestive heart failure chronicity : chronic Qualified Code(s): I50.22 - Chronic systolic (congestive) heart failure
[2017-05-28] MEDS: MIDODRINE HCL 5 MG TABLET PO SCH ×3 (10:21→21:22)
[2017-05-28] MEDS: AMPICILLIN NA/SULBACTAM NA 3 GM in SODIUM CHLORIDE 100 ML IVPB SCH (10:21)
[2017-05-28] MEDS: GABAPENTIN 100 MG CAPSULE (FP) PO SCH (10:21)
[2017-05-28] MEDS: AMIODARONE HCL 200 MG TABLET (FP) PO SCH (10:22)
[2017-05-28] MEDS: BACITRACIN 15 GM TUBE TOPICAL OINTMENT TP SCH ×2 (10:22→21:26)
[2017-05-28] MEDS: VITAMIN B COMP W-C 1 EA TABLET PO SCH (10:22)
[2017-05-28] MEDS: LACTULOSE 20 GM/30 ML UDC (FOR ORAL USE ONLY) PO SCH (10:23)
--- NOTE | 2017-05-28 14:11 | PN ---
Progress Note, Physician History of Present Illness: Supine in bed No acute distress No focal complaint Afebrile BC Klebsiella, S. milleri Repeat BC no growth Echo pending - Current Medication List Current Medications: Active Medications Acetaminophen (Tylenol -) 325 mg PO Q6H PRN PRN Reason: PAIN Last Admin: 05/28/17 11:30 Dose: 325 mg Amiodarone HCl (Cordarone -) 100 mg PO DAILY [facility] Last Admin: 05/28/17 10:22 Dose: 100 mg Bacitracin (Bacitracin -) 1 applic TP BID [facility] Last Admin: 05/28/17 10:22 Dose: 1 applic Gabapentin (Neurontin -) 100 mg PO DAILY [facility] Last Admin: 05/28/17 10:21 Dose: 100 mg Ampicillin Sodium/Sulbactam (Sodium 3 gm/ Sodium Chloride) 100 mls @ 200 mls/ hr IVPB DAILY [facility] Last Admin: 05/28/17 10:21 Dose: 200 mls/hr Insulin Aspart (Novolog Vial Sliding Scale -) 1 vial SQ ACHS [facility] PRN Reason: Protocol Last Admin: 05/28/17 11:31 Dose: 6 units Insulin Detemir (Levemir Vial) 12 units SQ DAILY@0700 [facility] Last Admin: 05/28/17 06:06 Dose: 12 units Lactulose (Cephulac (Oral Use)) 20 gm PO DAILY [facility] Last Admin: 05/28/17 10:23 Dose: 20 gm Levothyroxine Sodium (Synthroid -) 75 mcg PO DAILY@0700 [facility] Last Admin: 05/28/17 06:05 Dose: 75 mcg Midodrine (Proamatine -) 10 mg PO BID-MID [facility] Last Admin: 05/28/17 10:21 Dose: 10 mg Multivit/Ca Carb/B Cmplx/FA/Prenat (Nephro-Adalberto -) 1 tablet PO DAILY [facility] Last Admin: 05/28/17 10:22 Dose: 1 tablet Ondansetron HCl (Zofran Injection) 4 mg IVPUSH Q6H PRN PRN Reason: NAUSEA AND/OR VOMITING Last Admin: 05/25/17 23:33 Dose: 4 mg Oxycodone HCl (Roxicodone -) 10 mg PO Q6H PRN PRN Reason: PAIN Last Admin: 05/28/17 11:29 Dose: 10 mg Sevelamer Carbonate (Renvela -) 800 mg PO TIDAC [facility] Last Admin: 05/28/17 10:23 Dose: 800 mg Sodium Polystyrene Sulfonate (Kayexalate -) 15 gm PO Q2D [facility] Last Admin: 05/27/17 11:22 Dose: 15 gm - Objective Vital Signs: Vital Signs Temperature 97.4 F L 05/28/17 07:34 Pulse Rate 121 H 05/28/17 07:34 Respiratory Rate 20 05/28/17 07:34 Blood Pressure 77/43 05/28/17 07:34 O2 Sat by Pulse Oximetry (%) 100 05/27/17 21:00 Constitutional: Yes: No Distress Cardiovascular: Yes: Regular Rate and Rhythm, S1, S2 Respiratory: Yes: CTA Bilaterally, Diminished, Other (decreased BS bases) Gastrointestinal: Yes: Normal Bowel Sounds, Soft, Other (distended, tense) Edema: Yes Labs: CBC, BMP 05/27/17 06:40 05/25/17 14:30 INR, PTT INR 1.19 (0.82-1.09) H D 05/21/17 08:00 Assessment/Plan Polymicrobial bacteremia/ sepsis ESRD Peritonitis Chronic liver disease S/P hepatic encephalopathy Continue Unasyn, adjusted for ESRD No objection to peritoneal catheter from ID standpoint When ready for discharge can substitute cefazolin, dosed at HD
[2017-05-28 17:32] LABS: MCH 26.9 pg (25.7-33.7); MCHC 29.6 g/dl (32.0-35.9); MEAN CELL VOLUME 90.9 fl (80-96); MEAN PLT VOLUME 10.7 fl (7.5-11.1); PLATELET COUNT 131 K/MM3 (134-434); RDW 21.3 % (11.9-15.9); WHITE BLOOD COUNT 14.1 K/mm3 (4.0-10.0)
[2017-05-28 18:01] LABS: ALBUMIN 2.9 g/dl (3.4-5.0); ANION GAP 17 (8-16); BILIRUBIN,TOTAL 0.7 mg/dL (0.2-1.0); CALCIUM 7.7 mg/dL (8.5-10.1); CO2 23 mmol/L (21-32); GLUCOSE,RANDOM 203 mg/dL (74-106); SGOT/AST 25 U/L (15-37); SGPT/ALT 39 U/L (12-78); TOT PROT 7.6 g/dl (6.4-8.2)
[2017-05-28 18:06] LABS: ALK PHOS 137 U/L (45-117)
[2017-05-28 18:13] LABS: CREATININE 7.8 mg/dL (0.7-1.3)
[2017-05-28] MEDS ORDERED: EPOETIN ALFA 10,000 UNIT/1 ML VIAL IVPUSH ONE (18:45)
[2017-05-28] MEDS ORDERED: EPOETIN ALFA 20,000 UNIT/1 ML VIAL IVPUSH ONE (18:45)
[2017-05-28 21:21] LABS: TOTAL CELLS COUNTED 100
[2017-05-28 21:24] LABS: ANISOCYTOSIS 2+
[2017-05-28 21:25] LABS: PLATELET ESTIMATE DECREASED; POLYCHROMASIA 1+
[2017-05-28] MEDS ORDERED: HYDROmorphone HCL CARPU-JECT 1 MG/1 ML DISP.SYRIN IM ONE (21:45)
[2017-05-29] MEDS: ACETAMINOPHEN 325 MG TABLET (FP) PO PRN ×3 (05:05→17:24)
[2017-05-29] MEDS: oxyCODONE HCL 5 MG TABLET PO PRN ×3 (05:05→17:25)
[2017-05-29] MEDS: INSULIN SLIDING SCALE (NOVOLOG) 1 VIAL SQ SCH ×4 (06:46→21:49)
[2017-05-29] MEDS: LEVOTHYROXINE NA 75 MCG TABLET (FP) PO SCH (06:46)
[2017-05-29] MEDS: INSULIN DETEMIR 100 UNITS/ML MDV SQ SCH (06:46)
[2017-05-29] MEDS: SEVELAMER CARBONATE 800 MG TAB (FP) PO SCH ×3 (06:46→17:26)
[2017-05-29] MEDS: MIDODRINE HCL 5 MG TABLET PO SCH ×2 (09:21→17:24)
--- NOTE | 2017-05-29 09:22 | PN ---
Progress Note (short form) - Note Progress Note: RENAL 62 WITH END STAGE ischemic cardiomyopathy dialyzed yesterday 3 kg removed as per HD nurse note but Abd distented Complains of pain because of distension Blood cultures gram neg bacilli klebsiella and gram pos cocci BOTH REpeat cultures neg On IV unasyn 3 gm daily Will UF in am and dialyze sunday again REsend cultures in am abd RACHEL drain in for palliative reasons AWake alert chest clear Abd very distended Rt arm AVG ok Ext pos edema labs noted HD in am
--- NOTE | 2017-05-29 11:08 | PN ---
Progress Note (short form) - Note Progress Note: CBC, BMP 05/28/17 17:00 05/28/17 17:00 Vital Signs Period Temp Pulse Resp BP Sys/Lopez Pulse Ox Last 24 Hr 97.1 F-98.8 F 51-120 17-20 76-161/31-117 97-100 received pleurex cath-1850 cc fluid removed S1S2 irreg.irreg. lungs cta ant abd distended tense + pedal edema awake alert feels weak iv line in left wrist right neck with scab over old iv site, softer than yesterday awake alert imp klebsiella bacteremia strep bacteremia repeat bcx on 05.25 negative so far SBP source? 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 chronic hypotension dm hypothyroidism chr pain, neuropathy end of life care, DNR/DNI iv abx-switch to type that can be given with HD for total of 2 weeks hd pleurex cath doen this am DNR/DNI will need VNS for pleurex care and teaching HD tmorrow am and dc planning home afterwards end stage renal disease, end stage heart disease primary goal is to get pt home and keep him home as much as possible, as comfortably as possible Problem List - Problems (1) ESRD (end stage renal disease) Code(s): N18.6 - END STAGE RENAL DISEASE (2) Acute hyperkalemia Code(s): E87.5 - HYPERKALEMIA (3) Anemia Code(s): D64.9 - ANEMIA, UNSPECIFIED Qualifiers: Anemia type: due to chronic kidney disease Chronic kidney disease stage: on chronic dialysis Qualified Code(s): N18.6 - End stage renal disease (4) Ascites Code(s): R18.8 - OTHER ASCITES Qualifiers: Ascites type: other type Qualified Code(s): R18.8 - Other ascites (5) Atrial fibrillation Code(s): I48.91 - UNSPECIFIED ATRIAL FIBRILLATION Qualifiers: Atrial fibrillation type: persistent Qualified Code(s): I48.1 - Persistent atrial fibrillation (6) Bradycardia Code(s): R00.1 - BRADYCARDIA, UNSPECIFIED (7) Chronic hyperkalemia Code(s): E87.5 - HYPERKALEMIA (8) Cirrhosis Code(s): K74.60 - UNSPECIFIED CIRRHOSIS OF LIVER Qualifiers: Hepatic cirrhosis type: unspecified hepatic cirrhosis Ascites presence: with ascites Qualified Code(s): K74.60 - Unspecified cirrhosis of liver (9) Congestive heart failure Code(s): I50.9 - HEART FAILURE, UNSPECIFIED Qualifiers: Congestive heart failure type: systolic Congestive heart failure chronicity : chronic Qualified Code(s): I50.22 - Chronic systolic (congestive) heart failure
[2017-05-29] MEDS ORDERED: PT OWN MED DRAWER 7, Y5N ONE ×2 (11:29→11:59)
[2017-05-29] MEDS: AMIODARONE HCL 200 MG TABLET (FP) PO SCH (11:33)
[2017-05-29] MEDS: LACTULOSE 20 GM/30 ML UDC (FOR ORAL USE ONLY) PO SCH (11:33)
[2017-05-29] MEDS: GABAPENTIN 100 MG CAPSULE (FP) PO SCH (11:33)
[2017-05-29] MEDS: AMPICILLIN NA/SULBACTAM NA 3 GM in SODIUM CHLORIDE 100 ML IVPB SCH (11:35)
[2017-05-29] MEDS: SODIUM POLYSTYRENE SULFONATE 15 GM/60 ML BOTTLE PO SCH (11:37)
[2017-05-29] MEDS: BACITRACIN 15 GM TUBE TOPICAL OINTMENT TP SCH ×2 (11:54→21:48)
[2017-05-29] MEDS: VITAMIN B COMP W-C 1 EA TABLET PO SCH (12:00)
--- NOTE | 2017-05-29 12:46 | PN ---
Progress Note, Physician History of Present Illness: Supine in bed S/P peritoneal drainage catheter No c/o abdominal pain Afebrile BC Klebsiella, S. milleri Repeat BC no growth Echo no vegetations - Current Medication List Current Medications: Active Medications Acetaminophen (Tylenol -) 325 mg PO Q6H PRN PRN Reason: PAIN Last Admin: 05/29/17 11:36 Dose: 325 mg Amiodarone HCl (Cordarone -) 100 mg PO DAILY [facility] Last Admin: 05/29/17 11:33 Dose: 100 mg Bacitracin (Bacitracin -) 1 applic TP BID [facility] Last Admin: 05/29/17 11:54 Dose: 1 applic Gabapentin (Neurontin -) 100 mg PO DAILY [facility] Last Admin: 05/29/17 11:33 Dose: 100 mg Ampicillin Sodium/Sulbactam (Sodium 3 gm/ Sodium Chloride) 100 mls @ 200 mls/ hr IVPB DAILY [facility] Last Admin: 05/29/17 11:35 Dose: 200 mls/hr Insulin Aspart (Novolog Vial Sliding Scale -) 1 vial SQ ACHS [facility] PRN Reason: Protocol Last Admin: 05/29/17 11:54 Dose: 6 units Insulin Detemir (Levemir Vial) 12 units SQ DAILY@0700 [facility] Last Admin: 05/29/17 06:46 Dose: Not Given Lactulose (Cephulac (Oral Use)) 20 gm PO DAILY [facility] Last Admin: 05/29/17 11:33 Dose: 20 gm Levothyroxine Sodium (Synthroid -) 75 mcg PO DAILY@0700 [facility] Last Admin: 05/29/17 06:46 Dose: 75 mcg Midodrine (Proamatine -) 10 mg PO BID-MID [facility] Last Admin: 05/29/17 09:21 Dose: 10 mg Multivit/Ca Carb/B Cmplx/FA/Prenat (Nephro-Adalberto -) 1 tablet PO DAILY [facility] Last Admin: 05/29/17 12:00 Dose: 1 tablet Ondansetron HCl (Zofran Injection) 4 mg IVPUSH Q6H PRN PRN Reason: NAUSEA AND/OR VOMITING Last Admin: 05/25/17 23:33 Dose: 4 mg Oxycodone HCl (Roxicodone -) 10 mg PO Q6H PRN PRN Reason: PAIN Last Admin: 05/29/17 11:36 Dose: 10 mg Sevelamer Carbonate (Renvela -) 800 mg PO TIDAC [facility] Last Admin: 05/29/17 11:35 Dose: 800 mg Sodium Polystyrene Sulfonate (Kayexalate -) 15 gm PO Q2D [facility] Last Admin: 05/29/17 11:37 Dose: 15 gm - Objective Vital Signs: Vital Signs Temperature 97.2 F L 05/29/17 07:20 Pulse Rate 51 L 05/29/17 10:38 Respiratory Rate 17 05/29/17 10:38 Blood Pressure 106/56 05/29/17 10:38 O2 Sat by Pulse Oximetry (%) 100 05/29/17 10:38 Constitutional: Yes: No Distress Neck: Yes: Other (R neck wound no fluctuance or expressible pus) Cardiovascular: Yes: Regular Rate and Rhythm, S1, S2 Respiratory: Yes: Other (decreased BS bases) Gastrointestinal: Yes: Normal Bowel Sounds, Soft, Other (less distended). No: Tenderness Edema: Yes Labs: CBC, BMP 05/28/17 17:00 05/28/17 17:00 INR, PTT INR 1.19 (0.82-1.09) H D 05/21/17 08:00 Assessment/Plan Polymicrobial bacteremia/ sepsis ESRD Peritonitis Chronic liver disease S/P hepatic encephalopathy Continue Unasyn, adjusted for ESRD When ready for discharge can substitute cefazolin, dosed at HD
[2017-05-30] MEDS: oxyCODONE HCL 5 MG TABLET PO PRN ×3 (05:44→22:45)
[2017-05-30] MEDS: ACETAMINOPHEN 325 MG TABLET (FP) PO PRN ×3 (05:44→22:46)
[2017-05-30] MEDS: LEVOTHYROXINE NA 75 MCG TABLET (FP) PO SCH (06:23)
[2017-05-30] MEDS: INSULIN DETEMIR 100 UNITS/ML MDV SQ SCH (06:24)
[2017-05-30] MEDS: SEVELAMER CARBONATE 800 MG TAB (FP) PO SCH ×3 (06:24→16:36)
[2017-05-30] MEDS: INSULIN SLIDING SCALE (NOVOLOG) 1 VIAL SQ SCH ×4 (06:24→22:30)
[2017-05-30] MEDS ORDERED: LIDOCAINE HCL 1%, 10 MG/ML (20ML VIAL) ONE (07:48)
--- NOTE | 2017-05-30 08:10 | PROC ---
Incision and Drainage Indication/Location: Right neck abscess Risks and Benefits Explained: Yes Consent on Chart: Yes Betadine cleansed: Yes Anesthesia: 1% Lidocaine Blade Size: 10 Drainage: 2cc radha pus Irrigated with Normal Saline: Yes (50mL) Iodinated Packin/4 in Sterile Dressing Applied: Yes - Remarks Remarks: Specimen sent for C/S Patient tolerated procedure well.
--- NOTE | 2017-05-30 10:31 | PN ---
Progress Note, Physician History of Present Illness: Supine in bed Lethargic, hypotensive today Offers no complaints No c/o abdominal pain Afebrile WBC elevated 14K BC Klebsiella, S. milleri Repeat BC no growth Echo no vegetations - Current Medication List Current Medications: Active Medications Acetaminophen (Tylenol -) 325 mg PO Q6H PRN PRN Reason: PAIN Last Admin: 05/30/17 05:44 Dose: 325 mg Amiodarone HCl (Cordarone -) 100 mg PO DAILY [facility] Last Admin: 05/29/17 11:33 Dose: 100 mg Bacitracin (Bacitracin -) 1 applic TP BID [facility] Last Admin: 05/29/17 21:48 Dose: 1 applic Gabapentin (Neurontin -) 100 mg PO DAILY [facility] Last Admin: 05/29/17 11:33 Dose: 100 mg Ampicillin Sodium/Sulbactam (Sodium 3 gm/ Sodium Chloride) 100 mls @ 200 mls/ hr IVPB DAILY [facility] Last Admin: 05/29/17 11:35 Dose: 200 mls/hr Insulin Aspart (Novolog Vial Sliding Scale -) 1 vial SQ ACHS [facility] PRN Reason: Protocol Last Admin: 05/30/17 06:24 Dose: Not Given Insulin Detemir (Levemir Vial) 12 units SQ DAILY@0700 [facility] Last Admin: 05/30/17 06:24 Dose: 12 units Lactulose (Cephulac (Oral Use)) 20 gm PO DAILY [facility] Last Admin: 05/29/17 11:33 Dose: 20 gm Levothyroxine Sodium (Synthroid -) 75 mcg PO DAILY@0700 [facility] Last Admin: 05/30/17 06:23 Dose: 75 mcg Midodrine (Proamatine -) 10 mg PO BID-MID [facility] Last Admin: 05/29/17 17:24 Dose: 10 mg Multivit/Ca Carb/B Cmplx/FA/Prenat (Nephro-Adalberto -) 1 tablet PO DAILY [facility] Last Admin: 05/29/17 12:00 Dose: 1 tablet Ondansetron HCl (Zofran Injection) 4 mg IVPUSH Q6H PRN PRN Reason: NAUSEA AND/OR VOMITING Last Admin: 05/25/17 23:33 Dose: 4 mg Oxycodone HCl (Roxicodone -) 10 mg PO Q6H PRN PRN Reason: PAIN Last Admin: 05/30/17 05:44 Dose: 10 mg Sevelamer Carbonate (Renvela -) 800 mg PO TIDAC [facility] Last Admin: 05/30/17 06:24 Dose: 800 mg Sodium Polystyrene Sulfonate (Kayexalate -) 15 gm PO Q2D [facility] Last Admin: 05/29/17 11:37 Dose: 15 gm - Objective Vital Signs: Vital Signs Temperature 97.6 F 05/30/17 06:16 Pulse Rate 64 05/30/17 06:16 Respiratory Rate 20 05/30/17 06:16 Blood Pressure 79/47 05/30/17 06:16 O2 Sat by Pulse Oximetry (%) 99 05/29/17 20:19 Constitutional: Yes: No Distress Eyes: Yes: Conjunctiva Clear Cardiovascular: Yes: Regular Rate and Rhythm, S1, S2 Respiratory: Yes: Diminished Gastrointestinal: Yes: Normal Bowel Sounds, Soft, Other (+ tense ascites. Peritoneal catheter in place.) Edema: Yes Labs: CBC, BMP 05/28/17 17:00 05/28/17 17:00 INR, PTT INR 1.19 (0.82-1.09) H D 05/21/17 08:00 Assessment/Plan Polymicrobial bacteremia/ sepsis ESRD Peritonitis Chronic liver disease S/P hepatic encephalopathy Continue Unasyn, adjusted for ESRD When ready for discharge can substitute cefazolin, dosed at HD
[2017-05-30] MEDS ORDERED: PT OWN MED DRAWER 7, Y5N ONE ×2 (10:35→15:39)
[2017-05-30] MEDS: MIDODRINE HCL 5 MG TABLET PO SCH ×2 (10:36→17:23)
[2017-05-30] MEDS: AMIODARONE HCL 200 MG TABLET (FP) PO SCH (10:37)
--- NOTE | 2017-05-30 11:45 | PN ---
Progress Note (short form) - Note Progress Note: CBC, BMP 05/28/17 17:00 05/28/17 17:00 Vital Signs Period Temp Pulse Resp BP Sys/Lopez Pulse Ox Last 24 Hr 97.1 F-98.8 F 59-66 18-20 77-120/38-51 99 received pleurex cath-1850 cc fluid removed yesterday S1S2 irreg.irreg. lungs cta ant abd distended but soft and nontender + pedal edema awake alert feels weak hard of hearing right neck abscess was i+d d this am imp klebsiella bacteremia strep bacteremia repeat bcx on 05.25 negative so far repeat peritoneal fluid culture negative so far SBP source? 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 chronic hypotension dm hypothyroidism chr pain, neuropathy end of life care, DNR/DNI iv abx-switch to cefazolin with HD d/w son at length, he can not take him home today since pt is too weak to ambulate to HD considering rehab progressive and deteriorating nature of disease d/w him at length Problem List - Problems (1) ESRD (end stage renal disease) Code(s): N18.6 - END STAGE RENAL DISEASE (2) Acute hyperkalemia Code(s): E87.5 - HYPERKALEMIA (3) Anemia Code(s): D64.9 - ANEMIA, UNSPECIFIED Qualifiers: Anemia type: due to chronic kidney disease Chronic kidney disease stage: on chronic dialysis Qualified Code(s): N18.6 - End stage renal disease (4) Ascites Code(s): R18.8 - OTHER ASCITES Qualifiers: Ascites type: other type Qualified Code(s): R18.8 - Other ascites (5) Atrial fibrillation Code(s): I48.91 - UNSPECIFIED ATRIAL FIBRILLATION Qualifiers: Atrial fibrillation type: persistent Qualified Code(s): I48.1 - Persistent atrial fibrillation (6) Bradycardia Code(s): R00.1 - BRADYCARDIA, UNSPECIFIED (7) Chronic hyperkalemia Code(s): E87.5 - HYPERKALEMIA (8) Cirrhosis Code(s): K74.60 - UNSPECIFIED CIRRHOSIS OF LIVER Qualifiers: Hepatic cirrhosis type: unspecified hepatic cirrhosis Ascites presence: with ascites Qualified Code(s): K74.60 - Unspecified cirrhosis of liver (9) Congestive heart failure Code(s): I50.9 - HEART FAILURE, UNSPECIFIED Qualifiers: Congestive heart failure type: systolic Congestive heart failure chronicity : chronic Qualified Code(s): I50.22 - Chronic systolic (congestive) heart failure
[2017-05-30 12:05] LABS: MCH 26.7 pg (25.7-33.7); MCHC 28.6 g/dl (32.0-35.9); MEAN CELL VOLUME 93.4 fl (80-96); MEAN PLT VOLUME 10.8 fl (7.5-11.1); PLATELET COUNT 130 K/MM3 (134-434); RDW 21.7 % (11.9-15.9); WHITE BLOOD COUNT 15.9 K/mm3 (4.0-10.0)
[2017-05-30] MEDS ORDERED: EPOETIN ALFA 20,000 UNIT/1 ML VIAL IVPUSH ONE (13:00)
[2017-05-30] MEDS: AMPICILLIN NA/SULBACTAM NA 3 GM in SODIUM CHLORIDE 100 ML IVPB SCH (14:39)
[2017-05-30] MEDS: GABAPENTIN 100 MG CAPSULE (FP) PO SCH (15:33)
[2017-05-30] MEDS: LACTULOSE 20 GM/30 ML UDC (FOR ORAL USE ONLY) PO SCH (15:33)
[2017-05-30] MEDS: VITAMIN B COMP W-C 1 EA TABLET PO SCH (15:42)
[2017-05-30] MEDS: BACITRACIN 15 GM TUBE TOPICAL OINTMENT TP SCH ×2 (15:42→21:33)
[2017-05-30] MEDS ORDERED: MIDODRINE HCL 5 MG TABLET PO ONE (21:15)
[2017-05-31] MEDS: INSULIN DETEMIR 100 UNITS/ML MDV SQ SCH (06:32)
[2017-05-31] MEDS: INSULIN SLIDING SCALE (NOVOLOG) 1 VIAL SQ SCH ×4 (06:33→21:45)
[2017-05-31] MEDS: LEVOTHYROXINE NA 75 MCG TABLET (FP) PO SCH (06:34)
[2017-05-31] MEDS: SEVELAMER CARBONATE 800 MG TAB (FP) PO SCH ×3 (06:34→18:02)
--- NOTE | 2017-05-31 08:27 | PN ---
Progress Note, Physician History of Present Illness: OOB in chair More awake and alert this am No complaints Denies abdominal pain No fever/ chills WBC increased 15.9 - Current Medication List Current Medications: Active Medications Acetaminophen (Tylenol -) 325 mg PO Q6H PRN PRN Reason: PAIN Last Admin: 05/30/17 22:46 Dose: 325 mg Amiodarone HCl (Cordarone -) 100 mg PO DAILY [facility] Last Admin: 05/30/17 10:37 Dose: Not Given Bacitracin (Bacitracin -) 1 applic TP BID [facility] Last Admin: 05/30/17 21:33 Dose: 1 applic Gabapentin (Neurontin -) 100 mg PO DAILY [facility] Last Admin: 05/30/17 15:33 Dose: 100 mg Ampicillin Sodium/Sulbactam (Sodium 3 gm/ Sodium Chloride) 100 mls @ 200 mls/ hr IVPB DAILY [facility] Last Admin: 05/30/17 14:39 Dose: 200 mls/hr Insulin Aspart (Novolog Vial Sliding Scale -) 1 vial SQ ACHS [facility] PRN Reason: Protocol Last Admin: 05/31/17 06:33 Dose: Not Given Insulin Detemir (Levemir Vial) 12 units SQ DAILY@0700 [facility] Last Admin: 05/31/17 06:32 Dose: 12 units Lactulose (Cephulac (Oral Use)) 20 gm PO DAILY [facility] Last Admin: 05/30/17 15:33 Dose: 20 gm Levothyroxine Sodium (Synthroid -) 75 mcg PO DAILY@0700 [facility] Last Admin: 05/31/17 06:34 Dose: 75 mcg Midodrine (Proamatine -) 10 mg PO BID-MID [facility] Last Admin: 05/30/17 17:23 Dose: 10 mg Multivit/Ca Carb/B Cmplx/FA/Prenat (Nephro-Adalberto -) 1 tablet PO DAILY [facility] Last Admin: 05/30/17 15:42 Dose: 1 tablet Ondansetron HCl (Zofran Injection) 4 mg IVPUSH Q6H PRN PRN Reason: NAUSEA AND/OR VOMITING Last Admin: 05/25/17 23:33 Dose: 4 mg Oxycodone HCl (Roxicodone -) 10 mg PO Q6H PRN PRN Reason: PAIN Last Admin: 05/30/17 22:45 Dose: 10 mg Sevelamer Carbonate (Renvela -) 800 mg PO TIDAC [facility] Last Admin: 05/31/17 06:34 Dose: 800 mg Sodium Polystyrene Sulfonate (Kayexalate -) 15 gm PO Q2D [facility] Last Admin: 05/29/17 11:37 Dose: 15 gm - Objective Vital Signs: Vital Signs Temperature 98.2 F 05/31/17 06:18 Pulse Rate 58 L 05/31/17 06:18 Respiratory Rate 20 05/31/17 06:18 Blood Pressure 122/60 05/31/17 06:18 O2 Sat by Pulse Oximetry (%) 98 05/30/17 21:00 Constitutional: Yes: No Distress, Other (chronically ill appearing) Cardiovascular: Yes: Regular Rate and Rhythm, S1, S2 Respiratory: Yes: Diminished Gastrointestinal: Yes: Normal Bowel Sounds, Soft, Other (tense ascites). No: Tenderness Edema: Yes Edema: LLE: 1+, RLE: 1+ Labs: CBC, BMP 05/30/17 11:00 05/28/17 17:00 INR, PTT INR 1.19 (0.82-1.09) H D 05/21/17 08:00 Assessment/Plan Polymicrobial bacteremia/ sepsis ESRD Peritonitis Chronic liver disease S/P hepatic encephalopathy No IV access available Will give Keflex, adjusted for ESRD. Cefazolin at next HD
[2017-05-31] MEDS: oxyCODONE HCL 5 MG TABLET PO PRN ×2 (08:46→18:04)
[2017-05-31] MEDS: ACETAMINOPHEN 325 MG TABLET (FP) PO PRN ×2 (08:47→18:05)
[2017-05-31] MEDS: LACTULOSE 20 GM/30 ML UDC (FOR ORAL USE ONLY) PO SCH (11:17)
[2017-05-31] MEDS: AMIODARONE HCL 200 MG TABLET (FP) PO SCH (11:18)
[2017-05-31] MEDS: CEPHALEXIN MONOHYDRATE 500 MG CAPSULE (UD) PO SCH (11:18)
[2017-05-31] MEDS: MIDODRINE HCL 5 MG TABLET PO SCH ×2 (11:18→18:02)
[2017-05-31] MEDS: VITAMIN B COMP W-C 1 EA TABLET PO SCH (11:18)
[2017-05-31] MEDS: GABAPENTIN 100 MG CAPSULE (FP) PO SCH (11:18)
[2017-05-31] MEDS ORDERED: PT OWN MED DRAWER 7, Y5N ONE (11:21)
[2017-05-31] MEDS: SODIUM POLYSTYRENE SULFONATE 15 GM/60 ML BOTTLE PO SCH (11:23)
[2017-05-31] MEDS: BACITRACIN 15 GM TUBE TOPICAL OINTMENT TP SCH ×2 (12:24→21:46)
--- NOTE | 2017-05-31 15:43 | PN ---
Progress Note (short form) - Note Progress Note: 62 year old man with end stage renal disease admitted with ascites and anemia. Patient reports decrease hearing from both ears for the past two days. Vitals: Vital Signs (72 hours) 05/28/17 05/28/17 05/28/17 16:20 16:30 17:00 Temperature Pulse Rate 94 H 51 L 53 L Pulse Rate [ Left Upper Arm] Respiratory 18 18 18 Rate Respiratory Rate [Left Upper Arm] Blood Pressure 157/117 161/112 134/63 Blood Pressure [Left Upper Arm ] O2 Sat by Pulse Oximetry (%) O2 Sat by Pulse Oximetry (%) [ Left Upper Arm] 05/28/17 05/28/17 05/28/17 17:30 18:00 18:30 Temperature Pulse Rate 61 119 H 79 Pulse Rate [ Left Upper Arm] Respiratory 18 18 18 Rate Respiratory Rate [Left Upper Arm] Blood Pressure 128/43 105/46 119/47 Blood Pressure [Left Upper Arm ] O2 Sat by Pulse Oximetry (%) O2 Sat by Pulse Oximetry (%) [ Left Upper Arm] 05/28/17 05/28/17 05/28/17 19:00 19:30 19:50 Temperature Pulse Rate 59 L 79 109 H Pulse Rate [ Left Upper Arm] Respiratory 18 18 18 Rate Respiratory Rate [Left Upper Arm] Blood Pressure 87/48 131/51 123/55 Blood Pressure [Left Upper Arm ] O2 Sat by Pulse Oximetry (%) O2 Sat by Pulse Oximetry (%) [ Left Upper Arm] 05/28/17 05/28/17 05/29/17 21:00 22:00 06:52 Temperature 97.4 F L 97.1 F L Pulse Rate 118 H 120 H Pulse Rate [ Left Upper Arm] Respiratory 18 18 20 Rate Respiratory Rate [Left Upper Arm] Blood Pressure 76/48 88/44 Blood Pressure [Left Upper Arm ] O2 Sat by Pulse 100 Oximetry (%) O2 Sat by Pulse Oximetry (%) [ Left Upper Arm] 05/29/17 05/29/17 05/29/17 07:20 07:40 10:02 Temperature 97.2 F L Pulse Rate 58 L 53 L Pulse Rate [ Left Upper Arm] Respiratory 18 18 Rate Respiratory Rate [Left Upper Arm] Blood Pressure 88/48 89/49 Blood Pressure [Left Upper Arm ] O2 Sat by Pulse 97 100 Oximetry (%) O2 Sat by Pulse Oximetry (%) [ Left Upper Arm] 05/29/17 05/29/17 05/29/17 10:26 10:38 14:59 Temperature 98.0 F Pulse Rate 51 L 66 Pulse Rate [ 62 Left Upper Arm] Respiratory 17 18 Rate Respiratory 17 Rate [Left Upper Arm] Blood Pressure 106/56 77/51 Blood Pressure 90/46 [Left Upper Arm ] O2 Sat by Pulse 100 Oximetry (%) O2 Sat by Pulse 100 Oximetry (%) [ Left Upper Arm] 05/29/17 05/29/17 05/30/17 20:13 20:19 04:30 Temperature 98.8 F Pulse Rate 60 62 Pulse Rate [ Left Upper Arm] Respiratory 18 20 Rate Respiratory Rate [Left Upper Arm] Blood Pressure 80/38 78/47 Blood Pressure [Left Upper Arm ] O2 Sat by Pulse 99 Oximetry (%) O2 Sat by Pulse Oximetry (%) [ Left Upper Arm] 05/30/17 05/30/17 05/30/17 06:16 08:38 09:00 Temperature 97.6 F 97.2 F L Pulse Rate 64 56 L Pulse Rate [ Left Upper Arm] Respiratory 20 20 Rate Respiratory Rate [Left Upper Arm] Blood Pressure 79/47 77/53 Blood Pressure [Left Upper Arm ] O2 Sat by Pulse 99 Oximetry (%) O2 Sat by Pulse Oximetry (%) [ Left Upper Arm] 05/30/17 05/30/17 05/30/17 11:00 11:05 11:24 Temperature 97.1 F L Pulse Rate 59 L 62 65 Pulse Rate [ Left Upper Arm] Respiratory 18 18 18 Rate Respiratory Rate [Left Upper Arm] Blood Pressure 120/41 100/48 97/46 Blood Pressure [Left Upper Arm ] O2 Sat by Pulse Oximetry (%) O2 Sat by Pulse Oximetry (%) [ Left Upper Arm] 05/30/17 05/30/17 05/30/17 11:50 12:20 13:00 Temperature Pulse Rate 79 76 80 Pulse Rate [ Left Upper Arm] Respiratory 18 18 18 Rate Respiratory Rate [Left Upper Arm] Blood Pressure 96/46 115/41 103/94 Blood Pressure [Left Upper Arm ] O2 Sat by Pulse Oximetry (%) O2 Sat by Pulse Oximetry (%) [ Left Upper Arm] 11/22/17 11/22/17 11/22/17 13:30 13:45 14:10 Temperature Pulse Rate 145 H 85 86 Pulse Rate [ Left Upper Arm] Respiratory 18 18 18 Rate Respiratory Rate [Left Upper Arm] Blood Pressure 107/69 108/51 131/87 Blood Pressure [Left Upper Arm ] O2 Sat by Pulse Oximetry (%) O2 Sat by Pulse Oximetry (%) [ Left Upper Arm] 05/30/17 05/30/17 05/30/17 14:15 16:00 17:05 Temperature 9.7 F L 97.5 F L Pulse Rate 95 H 68 58 L Pulse Rate [ Left Upper Arm] Respiratory 18 20 20 Rate Respiratory Rate [Left Upper Arm] Blood Pressure 117/75 74/39 126/42 Blood Pressure [Left Upper Arm ] O2 Sat by Pulse Oximetry (%) O2 Sat by Pulse Oximetry (%) [ Left Upper Arm] 05/30/17 05/30/17 05/31/17 21:00 22:00 02:10 Temperature 97.9 F 97.8 F 98.2 F Pulse Rate 56 L 60 58 L Pulse Rate [ Left Upper Arm] Respiratory 20 20 20 Rate Respiratory Rate [Left Upper Arm] Blood Pressure 74/46 81/41 112/57 Blood Pressure [Left Upper Arm ] O2 Sat by Pulse 98 Oximetry (%) O2 Sat by Pulse Oximetry (%) [ Left Upper Arm] 05/31/17 05/31/17 05/31/17 06:18 09:00 10:00 Temperature 98.2 F 98 F Pulse Rate 58 L 96 H Pulse Rate [ Left Upper Arm] Respiratory 20 20 Rate Respiratory Rate [Left Upper Arm] Blood Pressure 122/60 84/43 Blood Pressure [Left Upper Arm ] O2 Sat by Pulse 98 Oximetry (%) O2 Sat by Pulse Oximetry (%) [ Left Upper Arm] 05/31/17 15:00 Temperature 97.5 F L Pulse Rate 56 L Pulse Rate [ Left Upper Arm] Respiratory 16 Rate Respiratory Rate [Left Upper Arm] Blood Pressure 127/47 Blood Pressure [Left Upper Arm ] O2 Sat by Pulse Oximetry (%) O2 Sat by Pulse Oximetry (%) [ Left Upper Arm] Lungs; coarse breath sound in both lung viera Heart: S1 S2 regular ABD: Obese, soft, s/p mia shunt Ext: Trace bipedal edema Access; positive faint bruit right arm AV fistula Labs: CBC, BMP 05/30/17 11:00 05/28/17 17:00 A/P 62 year old man with ESRD. Patient is for hemodialysis in a.m. Consider ENT evaluation for hearing impairment. Discharge planning as per PMD.
--- NOTE | 2017-05-31 18:05 | PN ---
Progress Note (short form) - Note Progress Note: no new c/o no dizziness his bp is stable today Vital Signs Period Temp Pulse Resp BP Sys/Lopez Pulse Ox Last 24 Hr 97.5 F-98.2 F 56-96 16-20 74-127/41-60 98-98 CBC, BMP 05/30/17 11:00 05/28/17 17:00 Heent positive pallor neck supple lungs clear heart no new change ext edema ap renal failure htn dm and low bp acities plan continue the meds d/w pt about the prognosis
[2017-06-01] MEDS: ACETAMINOPHEN 325 MG TABLET (FP) PO PRN ×3 (00:49→15:18)
[2017-06-01] MEDS: oxyCODONE HCL 5 MG TABLET PO PRN ×3 (00:49→15:19)
[2017-06-01] MEDS: INSULIN DETEMIR 100 UNITS/ML MDV SQ SCH (06:31)
[2017-06-01] MEDS: INSULIN SLIDING SCALE (NOVOLOG) 1 VIAL SQ SCH ×4 (06:32→21:27)
[2017-06-01] MEDS: SEVELAMER CARBONATE 800 MG TAB (FP) PO SCH ×3 (06:32→17:42)
[2017-06-01] MEDS: LEVOTHYROXINE NA 75 MCG TABLET (FP) PO SCH (06:33)
--- NOTE | 2017-06-01 08:40 | PN ---
Progress Note (short form) - Note Progress Note: CBC, BMP 05/28/17 17:00 CBC, BMP 05/30/17 11:00 05/28/17 17:00 Vital Signs Period Temp Pulse Resp BP Sys/Lopez Pulse Ox Last 24 Hr 97.4 F-98 F 55-96 16-20 80-127/36-61 98-99 S1S2 irreg.irreg. lungs cta ant abd distended but soft incision below pleurex is oozing clear fluid soaking pads + pedal edema awake alert feels weak hard of hearing right neck abscess dressing changed imp klebsiella bacteremia strep bacteremia repeat bcx negative repeat peritoneal fluid culture negative SBP source? 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 chronic hypotension dm hypothyroidism chr pain, neuropathy end of life care, DNR/DNI complete cefazolin with HD until 06.05.17 considering rehab/NH progressive and deteriorating nature of disease Problem List - Problems (1) ESRD (end stage renal disease) Code(s): N18.6 - END STAGE RENAL DISEASE (2) Acute hyperkalemia Code(s): E87.5 - HYPERKALEMIA (3) Anemia Code(s): D64.9 - ANEMIA, UNSPECIFIED Qualifiers: Anemia type: due to chronic kidney disease Chronic kidney disease stage: on chronic dialysis Qualified Code(s): N18.6 - End stage renal disease (4) Ascites Code(s): R18.8 - OTHER ASCITES Qualifiers: Ascites type: other type Qualified Code(s): R18.8 - Other ascites (5) Atrial fibrillation Code(s): I48.91 - UNSPECIFIED ATRIAL FIBRILLATION Qualifiers: Atrial fibrillation type: persistent Qualified Code(s): I48.1 - Persistent atrial fibrillation (6) Bradycardia Code(s): R00.1 - BRADYCARDIA, UNSPECIFIED (7) Chronic hyperkalemia Code(s): E87.5 - HYPERKALEMIA (8) Cirrhosis Code(s): K74.60 - UNSPECIFIED CIRRHOSIS OF LIVER Qualifiers: Hepatic cirrhosis type: unspecified hepatic cirrhosis Ascites presence: with ascites Qualified Code(s): K74.60 - Unspecified cirrhosis of liver (9) Congestive heart failure Code(s): I50.9 - HEART FAILURE, UNSPECIFIED Qualifiers: Congestive heart failure type: systolic Congestive heart failure chronicity : chronic Qualified Code(s): I50.22 - Chronic systolic (congestive) heart failure
[2017-06-01] MEDS: MIDODRINE HCL 5 MG TABLET PO SCH ×2 (09:24→17:42)
[2017-06-01] MEDS ORDERED: PT OWN MED DRAWER 7, Y5N ONE (09:44)
[2017-06-01] MEDS: AMIODARONE HCL 200 MG TABLET (FP) PO SCH (09:45)
[2017-06-01] MEDS: GABAPENTIN 100 MG CAPSULE (FP) PO SCH (09:46)
[2017-06-01] MEDS: VITAMIN B COMP W-C 1 EA TABLET PO SCH (09:47)
[2017-06-01] MEDS: LACTULOSE 20 GM/30 ML UDC (FOR ORAL USE ONLY) PO SCH (09:47)
[2017-06-01] MEDS ORDERED: CEFAZOLIN 1 GM in DEXTROSE 5%-WATER - 50 ML IVPB ONE (10:00)
[2017-06-01] MEDS ORDERED: EPOETIN ALFA 10,000 UNIT/1 ML VIAL IVPUSH ONE (10:30)
[2017-06-01 11:36] LABS: BASOPHIL 0.6 % (0-2.0); EOSINOPHIL 1.6 % (0-4.5); MCHC 28.9 g/dl (32.0-35.9); MEAN CELL VOLUME 93.5 fl (80-96); MEAN PLT VOLUME 9.9 fl (7.5-11.1); NEUTROPHILS 86.5 % (42.8-82.8); PLATELET COUNT 119 K/MM3 (134-434); RDW 22.8 % (11.9-15.9); WHITE BLOOD COUNT 14.3 K/mm3 (4.0-10.0)
[2017-06-01 11:46] LABS: ALBUMIN 2.5 g/dl (3.4-5.0); ANION GAP 19 (8-16); BILIRUBIN,TOTAL 0.6 mg/dL (0.2-1.0); CALCIUM 7.3 mg/dL (8.5-10.1); CO2 21 mmol/L (21-32); GLUCOSE,RANDOM 212 mg/dL (74-106); SGOT/AST 14 U/L (15-37); SGPT/ALT 22 U/L (12-78); TOT PROT 6.7 g/dl (6.4-8.2)
[2017-06-01 11:52] LABS: ALK PHOS 129 U/L (45-117)
[2017-06-01 12:48] LABS: CREATININE 7.7 mg/dL (0.7-1.3)
[2017-06-01] MEDS ORDERED: INSULIN (NOVOLOG) ASPART 100 UNITS/ML 10ML VIAL ONE ×2 (14:28→20:56)
[2017-06-01] MEDS: BACITRACIN 15 GM TUBE TOPICAL OINTMENT TP SCH ×2 (14:33→21:27)
[2017-06-01] MEDS ORDERED: diphenhydrAMINE HCL 12.5 MG/5 ML UNIT-DOSE CUPS PO ONE (14:58)
[2017-06-01] MEDS ORDERED: ONDANSETRON 4 MG TABLET PO PRN (15:26)
[2017-06-01] MEDS ORDERED: oxyCODONE HCL 5 MG TABLET PO ONE (18:15)
[2017-06-01] MEDS ORDERED: ACETAMINOPHEN 325 MG TABLET (FP) PO ONE (18:15)
[2017-06-02] MEDS: INSULIN SLIDING SCALE (NOVOLOG) 1 VIAL SQ SCH ×4 (06:12→22:38)
[2017-06-02] MEDS: SEVELAMER CARBONATE 800 MG TAB (FP) PO SCH ×3 (06:33→17:24)
[2017-06-02] MEDS: LEVOTHYROXINE NA 75 MCG TABLET (FP) PO SCH (06:33)
[2017-06-02] MEDS: INSULIN DETEMIR 100 UNITS/ML MDV SQ SCH (06:33)
[2017-06-02] MEDS: MIDODRINE HCL 5 MG TABLET PO SCH ×3 (07:28→17:24)
--- NOTE | 2017-06-02 09:12 | PN ---
Progress Note (short form) - Note Progress Note: no new c/o no dizziness his bp is stable today Vital Signs Period Temp Pulse Resp BP Sys/Lopez Pulse Ox Last 24 Hr 97 F-98.0 F 52-113 18-20 87-141/41-92 100 Vital Signs CBC, BMP 06/01/17 10:30 06/01/17 10:30 Heent positive pallor neck supple lungs clear heart no new change ext edema ap renal failure htn dm and low bp acities plan continue the meds d/w pt about the prognosis he is going home on hospice he needs hospital bed because he is very uncomfortable on ordinary bed
--- NOTE | 2017-06-02 11:28 | PN ---
Progress Note, Physician History of Present Illness: Seen in HD Awake, alert No complaints Denies abdominal pain No fever/ chills WBC remains elevated 14K - Current Medication List Current Medications: Active Medications Acetaminophen (Tylenol -) 325 mg PO Q6H PRN PRN Reason: PAIN Last Admin: 06/01/17 15:18 Dose: 325 mg Amiodarone HCl (Cordarone -) 100 mg PO DAILY [facility] Last Admin: 06/01/17 09:45 Dose: 100 mg Bacitracin (Bacitracin -) 1 applic TP BID [facility] Last Admin: 06/01/17 21:27 Dose: 1 applic Cephalexin HCl (Keflex -) 500 mg PO DAILY [facility] Last Admin: 05/31/17 11:18 Dose: 500 mg Gabapentin (Neurontin -) 100 mg PO DAILY [facility] Last Admin: 06/01/17 09:46 Dose: 100 mg Cefazolin Sodium/Dextrose (Ancef 2 Gm Premixed Ivpb -) 2 gm in 50 mls @ 100 mls /hr IVPB ONCE ONE Stop: 06/02/17 11:59 Last Admin: 06/02/17 11:26 Dose: 100 mls/hr Insulin Aspart (Novolog Vial Sliding Scale -) 1 vial SQ ACHS [facility] PRN Reason: Protocol Last Admin: 06/02/17 06:12 Dose: Not Given Insulin Detemir (Levemir Vial) 12 units SQ DAILY@0700 [facility] Last Admin: 06/02/17 06:33 Dose: 12 units Lactulose (Cephulac (Oral Use)) 20 gm PO DAILY [facility] Last Admin: 06/01/17 09:47 Dose: 20 gm Levothyroxine Sodium (Synthroid -) 75 mcg PO DAILY@0700 [facility] Last Admin: 06/02/17 06:33 Dose: 75 mcg Midodrine (Proamatine -) 10 mg PO BID-MID [facility] Last Admin: 06/02/17 07:28 Dose: 10 mg Multivit/Ca Carb/B Cmplx/FA/Prenat (Nephro-Adalberto -) 1 tablet PO DAILY [facility] Last Admin: 06/01/17 09:47 Dose: 1 tablet Ondansetron HCl (Zofran -) 4 mg PO Q12H PRN PRN Reason: NAUSEA AND/OR VOMITING Last Admin: 06/01/17 15:44 Dose: 4 mg Oxycodone HCl (Roxicodone -) 10 mg PO Q6H PRN PRN Reason: PAIN Last Admin: 06/01/17 15:19 Dose: 10 mg Sevelamer Carbonate (Renvela -) 800 mg PO TIDAC [facility] Last Admin: 06/02/17 06:33 Dose: 800 mg Sodium Polystyrene Sulfonate (Kayexalate -) 15 gm PO Q2D [facility] Last Admin: 05/31/17 11:23 Dose: Not Given - Objective Vital Signs: Vital Signs Temperature 98.0 F 06/02/17 08:25 Pulse Rate 77 06/02/17 11:05 Respiratory Rate 18 06/02/17 11:05 Blood Pressure 109/72 06/02/17 11:05 O2 Sat by Pulse Oximetry (%) 100 06/01/17 21:00 Constitutional: Yes: No Distress Eyes: Yes: Conjunctiva Clear Cardiovascular: Yes: Regular Rate and Rhythm, S1, S2 Respiratory: Yes: Diminished Gastrointestinal: Yes: Other (abdomen distended). No: Tenderness Edema: Yes Labs: CBC, BMP 06/01/17 10:30 06/01/17 10:30 INR, PTT INR 1.19 (0.82-1.09) H D 05/21/17 08:00 Assessment/Plan Polymicrobial bacteremia/ sepsis ESRD Peritonitis Chronic liver disease S/P hepatic encephalopathy Cefazolin redosed at HD today Last dose cefazolin at HD 06/05, then chronic oral antibiotic prophylaxis for SBP
[2017-06-02] MEDS ORDERED: CEFAZOLIN 2 GM/D5W 2 GM/50 ML ML IVPB ONE (11:30)
[2017-06-02] MEDS ORDERED: PT OWN MED DRAWER 7, Y5N ONE (11:55)
[2017-06-02] MEDS: SODIUM POLYSTYRENE SULFONATE 15 GM/60 ML BOTTLE PO SCH (11:57)
[2017-06-02] MEDS: oxyCODONE HCL 5 MG TABLET PO PRN ×2 (11:57→18:07)
[2017-06-02] MEDS: AMIODARONE HCL 200 MG TABLET (FP) PO SCH (11:58)
[2017-06-02] MEDS: CEPHALEXIN MONOHYDRATE 500 MG CAPSULE (UD) PO SCH (11:58)
[2017-06-02] MEDS: GABAPENTIN 100 MG CAPSULE (FP) PO SCH (11:58)
[2017-06-02] MEDS: ACETAMINOPHEN 325 MG TABLET (FP) PO PRN ×2 (11:58→18:08)
[2017-06-02] MEDS: LACTULOSE 20 GM/30 ML UDC (FOR ORAL USE ONLY) PO SCH (11:59)
[2017-06-02] MEDS: BACITRACIN 15 GM TUBE TOPICAL OINTMENT TP SCH ×3 (11:59→12:30)
[2017-06-02] MEDS: VITAMIN B COMP W-C 1 EA TABLET PO SCH (11:59)
[2017-06-02] MEDS ORDERED: INSULIN (NOVOLOG) ASPART 100 UNITS/ML 10ML VIAL ONE (12:26)
--- NOTE | 2017-06-02 13:57 | PN ---
Progress Note (short form) - Note Progress Note: 62 year old man with end stage renal disease and ascites. Patient is awake and in no acute distress. Patient had hemodialysis earlier and is presently undergoing drainage of ascitic fluid. A total of approximately 950 ml of straw colored fluid obtained. Vitals: Vital Signs (72 hours) 05/30/17 05/30/17 05/30/17 14:10 14:15 16:00 Temperature 9.7 F L Pulse Rate 86 95 H 68 Respiratory 18 18 20 Rate Blood Pressure 131/87 117/75 74/39 O2 Sat by Pulse Oximetry (%) 05/30/17 05/30/17 05/30/17 17:05 21:00 22:00 Temperature 97.5 F L 97.9 F 97.8 F Pulse Rate 58 L 56 L 60 Respiratory 20 20 20 Rate Blood Pressure 126/42 74/46 81/41 O2 Sat by Pulse 98 Oximetry (%) 05/31/17 05/31/17 05/31/17 02:10 06:18 09:00 Temperature 98.2 F 98.2 F Pulse Rate 58 L 58 L Respiratory 20 20 Rate Blood Pressure 112/57 122/60 O2 Sat by Pulse 98 Oximetry (%) 05/31/17 05/31/17 05/31/17 10:00 15:00 16:30 Temperature 98 F 97.5 F L 97.4 F L Pulse Rate 96 H 56 L 64 Respiratory 20 16 18 Rate Blood Pressure 84/43 127/47 80/36 O2 Sat by Pulse Oximetry (%) 05/31/17 05/31/17 06/01/17 21:00 21:55 06:00 Temperature 97.4 F L 97.6 F Pulse Rate 55 L 64 Respiratory 18 18 20 Rate Blood Pressure 122/61 103/61 O2 Sat by Pulse 99 Oximetry (%) 06/01/17 06/01/17 06/01/17 09:00 10:00 10:25 Temperature 98 F 97.5 F L Pulse Rate 54 L 60 Respiratory 20 20 18 Rate Blood Pressure 87/41 131/66 O2 Sat by Pulse Oximetry (%) 06/01/17 06/01/17 06/01/17 10:30 11:00 11:30 Temperature Pulse Rate 113 H 103 H 71 Respiratory 18 18 18 Rate Blood Pressure 131/67 122/90 120/42 O2 Sat by Pulse Oximetry (%) 06/01/17 06/01/17 06/01/17 12:00 12:30 13:00 Temperature Pulse Rate 92 H 102 H 109 H Respiratory 18 18 18 Rate Blood Pressure 104/52 118/67 105/62 O2 Sat by Pulse Oximetry (%) 06/01/17 06/01/17 06/01/17 13:30 13:54 16:13 Temperature 98.0 F Pulse Rate 96 H 107 H 80 Respiratory 18 18 20 Rate Blood Pressure 103/61 110/57 O2 Sat by Pulse Oximetry (%) 06/01/17 06/01/17 06/01/17 16:30 21:00 22:00 Temperature 97 F L 97.7 F Pulse Rate 94 H 71 Respiratory 20 18 Rate Blood Pressure 87/45 108/50 O2 Sat by Pulse 100 Oximetry (%) 06/02/17 06/02/17 06/02/17 07:02 08:25 08:30 Temperature 97.4 F L 98.0 F Pulse Rate 52 L 58 L 60 Respiratory 20 18 18 Rate Blood Pressure 106/52 141/44 116/53 O2 Sat by Pulse Oximetry (%) 06/02/17 06/02/17 06/02/17 09:00 09:30 10:00 Temperature Pulse Rate 65 67 69 Respiratory 18 18 18 Rate Blood Pressure 129/92 131/48 93/50 O2 Sat by Pulse Oximetry (%) 06/02/17 06/02/17 06/02/17 10:30 11:00 11:05 Temperature Pulse Rate 69 72 77 Respiratory 18 18 18 Rate Blood Pressure 96/51 100/46 109/72 O2 Sat by Pulse Oximetry (%) Lungs; coarse breath sound with dullness at the bases. Heart: S1 S2 Regular Abd: Obese, soft, blister in the right lower abdomen and catheter in the left paEA-umbilical area Ext: Trace bipedal edema. Neuro: A wake and responsive Labs: CBC,CMP WBC 14.3 K/mm3 (4.0-10.0) H 06/01/17 10:30 RBC 3.55 M/mm3 (4.00-5.60) L 06/01/17 10:30 Hgb 9.6 GM/dL (11.7-16.9) L 06/01/17 10:30 Hct 33.2 % (35.4-49) L 06/01/17 10:30 MCV 93.5 fl (80-96) 06/01/17 10:30 MCH 27.0 pg (25.7-33.7) 06/01/17 10:30 MCHC 28.9 g/dl (32.0-35.9) L 06/01/17 10:30 RDW 22.8 % (11.9-15.9) H 06/01/17 10:30 Plt Count 119 K/MM3 (134-434) L 06/01/17 10:30 MPV 9.9 fl (7.5-11.1) 06/01/17 10:30 Total Counted 100 05/28/17 17:00 Neutrophils % 86.5 % (42.8-82.8) H 06/01/17 10:30 Neutrophils % (Manual) 80.0 % (42.8-82.8) 05/28/17 17:00 Band Neutrophils % No Result Required. 05/22/17 12:09 Lymphocytes % 4.0 % (8-40) L D 06/01/17 10:30 Lymphocytes % (Manual) 7.0 % (8-40) L D 05/28/17 17:00 Monocytes % 7.3 % (3.8-10.2) 06/01/17 10:30 Monocytes % (Manual) 6 % (3.8-10.2) 05/28/17 17:00 Eosinophils % 1.6 % (0-4.5) 06/01/17 10:30 Eosinophils % (Manual) 7.0 % (0-4.5) H D 05/28/17 17:00 Basophils % 0.6 % (0-2.0) 06/01/17 10:30 Basophils % (Manual) 1.0 % (0-2.0) 05/22/17 12:09 Hypochromia 2+ 05/27/17 06:40 Platelet Estimate Decreased 05/28/17 17:00 Platelet Comment Orange Grower 05/28/17 17:00 Polychromasia 1+ 05/28/17 17:00 Anisocytosis 2+ 05/28/17 17:00 Ovalocytes 1+ 05/15/17 15:42 Microcytosis 1+ 05/27/17 06:40 Macrocytosis 2+ 05/27/17 06:40 Tear Drop Cells 1+ 05/27/17 06:40 Sodium 130 mmol/L (136-145) L 06/01/17 10:30 Potassium 4.3 mmol/L (3.5-5.1) 06/01/17 10:30 Chloride 90 mmol/L (98-107) L 06/01/17 10:30 Carbon Dioxide 21 mmol/L (21-32) 06/01/17 10:30 Anion Gap 19 (8-16) H 06/01/17 10:30 BUN 83 mg/dL (7-18) H 06/01/17 10:30 Creatinine 7.7 mg/dL (0.7-1.3) H* 06/01/17 10:30 Creat Clearance w eGFR 7.16 (>60) 06/01/17 10:30 POC Glucometer 228 UNITS (80-120) 06/02/17 12:23 Random Glucose 212 mg/dL (74-106) H 06/01/17 10:30 Lactic Acid 1.7 mmol/L (0.4-2.0) 05/15/17 15:42 Calcium 7.3 mg/dL (8.5-10.1) L 06/01/17 10:30 Phosphorus 3.4 mg/dL (2.5-4.9) D 05/25/17 14:30 Total Bilirubin 0.6 mg/dL (0.2-1.0) 06/01/17 10:30 AST 14 U/L (15-37) L D 06/01/17 10:30 ALT 22 U/L (12-78) D 06/01/17 10:30 Alkaline Phosphatase 129 U/L (45-117) H 06/01/17 10:30 Creatine Kinase 37 IU/L (39-308) L 05/15/17 15:42 Troponin I 0.06 ng/ml (0.00-0.05) H D 05/15/17 15:42 Total Protein 6.7 g/dl (6.4-8.2) 06/01/17 10:30 Albumin 2.5 g/dl (3.4-5.0) L 06/01/17 10:30 TSH 14.10 uIU/ml (0.358-3.74) H D 11/08/17 09:30 A/P: 62 year old man with end stage renal disease. Hemodialysis today as per the dialysis orders. Tentatively for repeat hemodialysis on Sunday.
[2017-06-03] MEDS: oxyCODONE HCL 5 MG TABLET PO PRN ×3 (00:35→16:12)
[2017-06-03] MEDS: ACETAMINOPHEN 325 MG TABLET (FP) PO PRN ×3 (00:36→16:12)
[2017-06-03] MEDS: SEVELAMER CARBONATE 800 MG TAB (FP) PO SCH ×3 (06:37→17:26)
[2017-06-03] MEDS: LEVOTHYROXINE NA 75 MCG TABLET (FP) PO SCH (06:38)
[2017-06-03] MEDS: INSULIN DETEMIR 100 UNITS/ML MDV SQ SCH (06:38)
[2017-06-03] MEDS: INSULIN SLIDING SCALE (NOVOLOG) 1 VIAL SQ SCH ×4 (06:38→22:14)
[2017-06-03] MEDS: LACTULOSE 20 GM/30 ML UDC (FOR ORAL USE ONLY) PO SCH (09:59)
[2017-06-03] MEDS: MIDODRINE HCL 5 MG TABLET PO SCH ×2 (09:59→18:16)
[2017-06-03] MEDS: AMIODARONE HCL 200 MG TABLET (FP) PO SCH (10:00)
[2017-06-03] MEDS: CEPHALEXIN MONOHYDRATE 500 MG CAPSULE (UD) PO SCH (10:00)
[2017-06-03] MEDS: BACITRACIN 15 GM TUBE TOPICAL OINTMENT TP SCH ×2 (10:00→22:13)
[2017-06-03] MEDS: GABAPENTIN 100 MG CAPSULE (FP) PO SCH (10:00)
[2017-06-03] MEDS: VITAMIN B COMP W-C 1 EA TABLET PO SCH (10:04)
[2017-06-03] MEDS ORDERED: INSULIN (NOVOLOG) ASPART 100 UNITS/ML 10ML VIAL ONE (11:24)
--- NOTE | 2017-06-03 11:52 | PN ---
Progress Note (short form) - Note Progress Note: he has little chest pain today and it started from abd and went to chest no sob no other syptoms he has no fever vs Vital Signs Period Temp Pulse Resp BP Sys/Lopez Pulse Ox Last 24 Hr 97.4 F-98.3 F 63-64 20-20 110-112/61-64 Heent nad neck supple lungs candace rales abd ascietes ext no edema ap chest pain non specific ekg no change asictes cotinue to [facility] same meds d/w family and will arrange for hospital bed in home
--- NOTE | 2017-06-03 20:41 | PN ---
Progress Note (short form) - Note Progress Note: Patient is seen today in the company of family member. Report impaired hearing from the right ear He denies any shortness of breath or dyspnea. Vitals; Vital Signs (72 hours) 05/31/17 05/31/17 06/01/17 21:00 21:55 06:00 Temperature 97.4 F L 97.6 F Pulse Rate 55 L 64 Respiratory 18 18 20 Rate Blood Pressure 122/61 103/61 O2 Sat by Pulse 99 Oximetry (%) 06/01/17 06/01/17 06/01/17 09:00 10:00 10:25 Temperature 98 F 97.5 F L Pulse Rate 54 L 60 Respiratory 20 20 18 Rate Blood Pressure 87/41 131/66 O2 Sat by Pulse Oximetry (%) 06/01/17 06/01/17 06/01/17 10:30 11:00 11:30 Temperature Pulse Rate 113 H 103 H 71 Respiratory 18 18 18 Rate Blood Pressure 131/67 122/90 120/42 O2 Sat by Pulse Oximetry (%) 06/01/17 06/01/17 06/01/17 12:00 12:30 13:00 Temperature Pulse Rate 92 H 102 H 109 H Respiratory 18 18 18 Rate Blood Pressure 104/52 118/67 105/62 O2 Sat by Pulse Oximetry (%) 06/01/17 06/01/17 06/01/17 13:30 13:54 16:13 Temperature 98.0 F Pulse Rate 96 H 107 H 80 Respiratory 18 18 20 Rate Blood Pressure 103/61 110/57 O2 Sat by Pulse Oximetry (%) 06/01/17 06/01/17 06/01/17 16:30 21:00 22:00 Temperature 97 F L 97.7 F Pulse Rate 94 H 71 Respiratory 20 18 Rate Blood Pressure 87/45 108/50 O2 Sat by Pulse 100 Oximetry (%) 06/02/17 06/02/17 06/02/17 07:02 08:25 08:30 Temperature 97.4 F L 98.0 F Pulse Rate 52 L 58 L 60 Respiratory 20 18 18 Rate Blood Pressure 106/52 141/44 116/53 O2 Sat by Pulse Oximetry (%) 06/02/17 06/02/17 06/02/17 09:00 09:30 10:00 Temperature Pulse Rate 65 67 69 Respiratory 18 18 18 Rate Blood Pressure 129/92 131/48 93/50 O2 Sat by Pulse Oximetry (%) 06/02/17 06/02/17 06/02/17 10:30 11:00 11:05 Temperature Pulse Rate 69 72 77 Respiratory 18 18 18 Rate Blood Pressure 96/51 100/46 109/72 O2 Sat by Pulse Oximetry (%) 06/02/17 06/02/17 06/02/17 11:20 11:30 17:13 Temperature 97.8 F 98.3 F Pulse Rate 69 63 Respiratory 18 20 20 Rate Blood Pressure 106/53 110/61 O2 Sat by Pulse 98 Oximetry (%) 06/02/17 06/03/17 06/03/17 21:00 08:07 09:00 Temperature 97.4 F L Pulse Rate 64 Respiratory 20 20 20 Rate Blood Pressure 112/64 O2 Sat by Pulse 96 Oximetry (%) 06/03/17 06/03/17 06/03/17 10:00 11:05 15:25 Temperature 98.7 F 98.8 F Pulse Rate 63 64 62 Respiratory 20 20 20 Rate Blood Pressure 94/37 94/61 O2 Sat by Pulse Oximetry (%) 06/03/17 20:03 Temperature 98.7 F Pulse Rate 69 Respiratory 20 RatelUNS; dULLNESSLungs Blood Pressure 126/64 O2 Sat by Pulse Oximetry (%) Lungs: coarse breath sound in both lung viera with dullness at the bases Heart: S1 S2 regular Abd: Obese, soft, s/p catheter for large volume paracentensis Ext: Trace bipedal edema Neuro: Awake and alert Access: positive bruit right arm avf Labs; CBC,CMP WBC 14.3 K/mm3 (4.0-10.0) H 06/01/17 10:30 RBC 3.55 M/mm3 (4.00-5.60) L 06/01/17 10:30 Hgb 9.6 GM/dL (11.7-16.9) L 06/01/17 10:30 Hct 33.2 % (35.4-49) L 06/01/17 10:30 MCV 93.5 fl (80-96) 06/01/17 10:30 MCH 27.0 pg (25.7-33.7) 06/01/17 10:30 MCHC 28.9 g/dl (32.0-35.9) L 06/01/17 10:30 RDW 22.8 % (11.9-15.9) H 06/01/17 10:30 Plt Count 119 K/MM3 (134-434) L 06/01/17 10:30 MPV 9.9 fl (7.5-11.1) 06/01/17 10:30 Total Counted 100 05/28/17 17:00 Neutrophils % 86.5 % (42.8-82.8) H 06/01/17 10:30 Neutrophils % (Manual) 80.0 % (42.8-82.8) 05/28/17 17:00 Band Neutrophils % No Result Required. 05/22/17 12:09 Lymphocytes % 4.0 % (8-40) L D 06/01/17 10:30 Lymphocytes % (Manual) 7.0 % (8-40) L D 05/28/17 17:00 Monocytes % 7.3 % (3.8-10.2) 06/01/17 10:30 Monocytes % (Manual) 6 % (3.8-10.2) 05/28/17 17:00 Eosinophils % 1.6 % (0-4.5) 06/01/17 10:30 Eosinophils % (Manual) 7.0 % (0-4.5) H D 05/28/17 17:00 Basophils % 0.6 % (0-2.0) 06/01/17 10:30 Basophils % (Manual) 1.0 % (0-2.0) 05/22/17 12:09 Hypochromia 2+ 05/27/17 06:40 Platelet Estimate Decreased 05/28/17 17:00 Platelet Comment Order Control Clerk Blood Bank 05/28/17 17:00 Polychromasia 1+ 05/28/17 17:00 Anisocytosis 2+ 05/28/17 17:00 Ovalocytes 1+ 05/15/17 15:42 Microcytosis 1+ 05/27/17 06:40 Macrocytosis 2+ 05/27/17 06:40 Tear Drop Cells 1+ 05/27/17 06:40 Sodium 130 mmol/L (136-145) L 06/01/17 10:30 Potassium 4.3 mmol/L (3.5-5.1) 06/01/17 10:30 Chloride 90 mmol/L (98-107) L 06/01/17 10:30 Carbon Dioxide 21 mmol/L (21-32) 06/01/17 10:30 Anion Gap 19 (8-16) H 06/01/17 10:30 BUN 83 mg/dL (7-18) H 06/01/17 10:30 Creatinine 7.7 mg/dL (0.7-1.3) H* 06/01/17 10:30 Creat Clearance w eGFR 7.16 (>60) 06/01/17 10:30 POC Glucometer 195 UNITS (80-120) 06/03/17 17:27 Random Glucose 212 mg/dL (74-106) H 06/01/17 10:30 Lactic Acid 1.7 mmol/L (0.4-2.0) 05/15/17 15:42 Calcium 7.3 mg/dL (8.5-10.1) L 06/01/17 10:30 Phosphorus 3.4 mg/dL (2.5-4.9) D 05/25/17 14:30 Total Bilirubin 0.6 mg/dL (0.2-1.0) 06/01/17 10:30 AST 14 U/L (15-37) L D 06/01/17 10:30 ALT 22 U/L (12-78) D 06/01/17 10:30 Alkaline Phosphatase 129 U/L (45-117) H 06/01/17 10:30 Creatine Kinase 37 IU/L (39-308) L 05/15/17 15:42 Troponin I 0.06 ng/ml (0.00-0.05) H D 05/15/17 15:42 Total Protein 6.7 g/dl (6.4-8.2) 06/01/17 10:30 Albumin 2.5 g/dl (3.4-5.0) L 06/01/17 10:30 TSH 14.10 uIU/ml (0.358-3.74) H D 05/16/17 09:30 A/P: 62 year old man with ESRD and cirrhosis of the liver with ascites. Patient is tentatively for hemodialysis in a.m. Obtain ENT evaluation in a.m.
[2017-06-04] MEDS: ACETAMINOPHEN 325 MG TABLET (FP) PO PRN ×2 (05:02→12:11)
[2017-06-04] MEDS: oxyCODONE HCL 5 MG TABLET PO PRN ×3 (05:03→21:46)
[2017-06-04] MEDS ORDERED: EPOETIN ALFA 10,000 UNIT/1 ML VIAL SQ ONE (06:00)
[2017-06-04] MEDS: INSULIN SLIDING SCALE (NOVOLOG) 1 VIAL SQ SCH ×4 (06:18→21:48)
[2017-06-04] MEDS: INSULIN DETEMIR 100 UNITS/ML MDV SQ SCH (06:18)
[2017-06-04] MEDS: SEVELAMER CARBONATE 800 MG TAB (FP) PO SCH ×3 (06:19→16:42)
[2017-06-04] MEDS: LEVOTHYROXINE NA 75 MCG TABLET (FP) PO SCH (06:19)
--- NOTE | 2017-06-04 07:42 | PN ---
Progress Note (short form) - Note Progress Note: RENAL 62 WITH END STAGE ischemic cardiomyopathy Complains of RT arm pain and hearing loss vitals stable WEight is down dialyzed sat DRained ascitic fluid sat as well always has abd pain abd distended but NOT tense Ext POs edema able to stand up independently walks with walker Should be dialyzed today Drain fluid prior to DC Set up VNS / Hospice and DC home TODAY Will be on po cephalexin as SBP prophylaxis case d/w family at bedside
[2017-06-04] MEDS: MIDODRINE HCL 5 MG TABLET PO SCH ×2 (09:01→18:17)
--- NOTE | 2017-06-04 09:15 | DS ---
Physical Examination Vital Signs: Vital Signs Temperature 97.4 F L 06/04/17 07:50 Pulse Rate 63 06/04/17 07:50 Respiratory Rate 16 06/04/17 07:50 Blood Pressure 85/39 06/04/17 07:50 O2 Sat by Pulse Oximetry (%) 100 06/03/17 20:48 Constitutional: Yes: Calm, Ashen Eyes: Yes: EOM Intact, Sclera Icterus HENT: Yes: Normocephalic Neck: Yes: Trachea Midline Cardiovascular: Yes: Regular Rate and Rhythm Respiratory: Yes: Diminished (AT RIGHT BASE) Gastrointestinal: Yes: Normal Bowel Sounds, Abdomen, Obese, Ascites, Distention , Other (PLEUREX CATHETER IN PLACE) Musculoskeletal: Yes: Muscle Pain, Muscle Weakness Extremities: Yes: Other (pedal edema) Edema: Yes Edema: LLE: 2+, RLE: 2+ Integumentary: Yes: Other (stage 2 hell decubitus) Neurological: Yes: Alert Labs: CBC, BMP 06/01/17 10:30 06/01/17 10:30 Discharge Summary Reason For Visit: UREMIC ENCEPHALOPATHY; ISCHEMIC DILATED CARDIO Current Active Problems ESRD (end stage renal disease) (Acute) Hospital Course: admitted for generalized weakness and edema patient is on chronic hemodialysis and has end stage ischemic cardiomyopathy with chronic left and right heart failure. presented with lethargy, tense ascites and hyperkalemia before his scheduled HD day was started on daily HD transiently developed fever and klebsiella and strep. bacteremia for which he was treated with iv abx ascites fluid remained negative, echo showed no vegetations, repeat blood cultures are negative on abx also developed melena and became more enimc requiring blood and platelet transfusions his warfarin was stopped indefinitely(was given for Afib) since gi w/up and continued ac would be more detrimental and would only hasten his decline or cause received pleurex cath to manage his ascites and relieve his significant pain and discomfort currenmtly he requires no further senior care care other than can be provided at home hospice accepted patiemt due to his end stage heart disease patient defers medical decision making to his son and his physicians at this point we have had long discussion with son and daughter that this is end of life care due to his serious multiple medical conditions and primary goal is to keep him comfortable and at home as long as possible. Condition: Guarded - Instructions Disposition: VNS/HOME HEALTH CARE - Home Medications Comprehensive Discharge Medication List: Ambulatory Orders Sucralfate [Carafate -] 1 gm PO BID 12/19/16 Levothyroxine [Synthroid -] 75 mcg PO DAILY@0700 tablet 12/24/16 Midodrine HCl [Proamatine -] 10 mg PO DAILY tablet 12/24/16 Sodium Polystyrene Sulfonate [Kayexalate -] 15 gm PO Q2D #1 bottle 01/25/17 Polyethylene Glycol 3350 [Miralax 255 gm Btl -] 17 gm PO DAILY #1 bottle Insulin Glargine,Hum.rec.anlog [Lantus (10mL VIAL) -] 15 units SQ DAILY Amiodarone HCl [Cordarone -] 100 mg PO DAILY 05/01/17 Sevelamer HCl [Renagel] 800 mg PO TID 05/01/17 Lactulose (Oral Use) [Cephulac -] 20 gm PO DAILY #1 bottle 05/09/17 Cephalexin Monohydrate [Keflex -] 500 mg PO DAILY #30 capsule 06/01/17 Vitamin B Comp W-C [Nephro-Adalberto -] 1 tablet PO DAILY #30 tablet 06/01/17 Ondansetron [Zofran -] 4 mg PO Q12H PRN #10 tablet 06/04/17 Oxycodone HCl/Acetaminophen [Percocet 10-325 mg Tablet] 1 each PO TID PRN #30 tablet MDD 3 06/04/17
[2017-06-04] MEDS ORDERED: INSULIN (NOVOLOG) ASPART 100 UNITS/ML 10ML VIAL ONE (09:55)
[2017-06-04] MEDS ORDERED: INSULIN DETEMIR 100 UNITS/ML MDV SQ ONE (09:55)
[2017-06-04] MEDS ORDERED: EPOETIN ALFA 2,000 UNITS/1 ML VIAL SQ ONE (11:00)
[2017-06-04] MEDS ORDERED: EPOETIN ALFA 3,000 UNIT/1 ML ML IVPUSH ONE (11:00)
[2017-06-04] MEDS ORDERED: ceFAZolin SODIUM 1 GM VIAL IM ONE (13:59)
--- NOTE | 2017-06-04 14:05 | PN ---
Progress Note, Physician History of Present Illness: Seen in HD Lethargic No complaints Denies abdominal pain No fever/ chills - Current Medication List Current Medications: Active Medications Acetaminophen (Tylenol -) 325 mg PO Q6H PRN PRN Reason: PAIN Last Admin: 06/04/17 12:11 Dose: 325 mg Amiodarone HCl (Cordarone -) 100 mg PO DAILY [facility] Last Admin: 06/03/17 10:00 Dose: 100 mg Bacitracin (Bacitracin -) 1 applic TP BID [facility] Last Admin: 06/03/17 22:13 Dose: 1 applic Cefazolin Sodium (Ancef -) 2 gm IM ONCE ONE Stop: 06/04/17 14:00 Cephalexin HCl (Keflex -) 500 mg PO DAILY [facility] Last Admin: 06/03/17 10:00 Dose: 500 mg Insulin Aspart (Novolog Vial Sliding Scale -) 1 vial SQ ACHS [facility] PRN Reason: Protocol Last Admin: 06/04/17 12:22 Dose: Not Given Insulin Detemir (Levemir Vial) 12 units SQ DAILY@0700 [facility] Last Admin: 06/04/17 06:18 Dose: 12 units Lactulose (Cephulac (Oral Use)) 20 gm PO DAILY [facility] Last Admin: 06/03/17 09:59 Dose: 20 gm Levothyroxine Sodium (Synthroid -) 75 mcg PO DAILY@0700 [facility] Last Admin: 06/04/17 06:19 Dose: 75 mcg Midodrine (Proamatine -) 10 mg PO BID-MID [facility] Last Admin: 06/04/17 09:01 Dose: 10 mg Multivit/Ca Carb/B Cmplx/FA/Prenat (Nephro-Adalberto -) 1 tablet PO DAILY [facility] Last Admin: 06/03/17 10:04 Dose: 1 tablet Ondansetron HCl (Zofran -) 4 mg PO Q12H PRN PRN Reason: NAUSEA AND/OR VOMITING Last Admin: 06/01/17 15:44 Dose: 4 mg Oxycodone HCl (Roxicodone -) 10 mg PO Q6H PRN PRN Reason: PAIN Last Admin: 06/04/17 12:10 Dose: 10 mg Sevelamer Carbonate (Renvela -) 800 mg PO TIDAC [facility] Last Admin: 06/04/17 06:19 Dose: 800 mg Sodium Polystyrene Sulfonate (Kayexalate -) 15 gm PO Q2D [facility] Last Admin: 06/02/17 11:57 Dose: 15 gm - Objective Vital Signs: Vital Signs Temperature 97.4 F L 06/04/17 12:30 Pulse Rate 70 06/04/17 13:10 Respiratory Rate 18 06/04/17 13:10 Blood Pressure 126/57 06/04/17 13:10 O2 Sat by Pulse Oximetry (%) 96 06/04/17 09:00 Constitutional: Yes: No Distress Eyes: Yes: Conjunctiva Clear Cardiovascular: Yes: Regular Rate and Rhythm, S1, S2 Respiratory: Yes: Diminished Gastrointestinal: Yes: Normal Bowel Sounds, Soft, Other (less distended). No: Tenderness Edema: Yes Labs: CBC, BMP 06/01/17 10:30 06/01/17 10:30 INR, PTT INR 1.19 (0.82-1.09) H D 05/21/17 08:00 Assessment/Plan Polymicrobial bacteremia/ sepsis ESRD Peritonitis Chronic liver disease S/P hepatic encephalopathy Cefazolin to be redosed at HD today Last dose cefazolin at HD today, then chronic oral antibiotic prophylaxis for SBP
--- NOTE | 2017-06-04 14:17 | EKG ---
Test Reason : Blood Pressure : / mmHG Vent. Rate : 063 BPM Atrial Rate : 063 BPM P-R Int : 000 ms QRS Dur : 168 ms QT Int : 500 ms P-R-T Axes : 000 -88 -76 degrees QTc Int : 511 ms UNDETERMINED RHYTHM , PROBABLE SINUS RHYTHM LEFT AXIS DEVIATION RIGHT BUNDLE BRANCH BLOCK CANNOT RULE OUT ANTEROLATERAL INFARCT (CITED ON OR BEFORE 21-AUG-2014) INFEROR INFARCT ABNORMAL ECG WHEN COMPARED WITH ECG OF 15-MAY-2017 15:15, LIKELY NO SIGNFICANT CHANGES DEMAND PACING NOT SEEN Confirmed by BETZY ZHONG MD ([id number]) on 06/04/2017 2:16:41 PM Referred By: Clayton WERNER Confirmed By:BETZY ZHONG MD
[2017-06-04] MEDS ORDERED: CEFAZOLIN 2 GM/D5W 2 GM/50 ML ML IVPB ONE (14:30)
[2017-06-04] MEDS ORDERED: PT OWN MED DRAWER 7, Y5N ONE (16:40)
[2017-06-04] MEDS: CEPHALEXIN MONOHYDRATE 500 MG CAPSULE (UD) PO SCH (16:42)
[2017-06-04] MEDS: LACTULOSE 20 GM/30 ML UDC (FOR ORAL USE ONLY) PO SCH (16:42)
[2017-06-04] MEDS: AMIODARONE HCL 200 MG TABLET (FP) PO SCH (16:42)
[2017-06-04] MEDS: SODIUM POLYSTYRENE SULFONATE 15 GM/60 ML BOTTLE PO SCH (16:42)
[2017-06-04] MEDS: VITAMIN B COMP W-C 1 EA TABLET PO SCH (16:42)
[2017-06-04] MEDS: BACITRACIN 15 GM TUBE TOPICAL OINTMENT TP SCH ×2 (16:43→21:49)
[2017-06-04] MEDS ORDERED: oxyCODONE HCL 5 MG TABLET PO ONE (16:45)
[2017-06-05] MEDS: oxyCODONE HCL 5 MG TABLET PO PRN ×2 (03:02→08:57)
[2017-06-05] MEDS: LEVOTHYROXINE NA 75 MCG TABLET (FP) PO SCH (06:38)
[2017-06-05] MEDS: INSULIN SLIDING SCALE (NOVOLOG) 1 VIAL SQ SCH ×2 (06:39→12:11)
[2017-06-05] MEDS: SEVELAMER CARBONATE 800 MG TAB (FP) PO SCH ×2 (06:39→11:00)
[2017-06-05] MEDS: INSULIN DETEMIR 100 UNITS/ML MDV SQ SCH (06:39)
--- NOTE | 2017-06-05 10:04 | PN ---
Progress Note (short form) - Note Progress Note: Day 6: s/p bedside I&D right neck abscess Doing well. Significant improvement. Periwound erythema resolved. Wound edges approximated without signs of infection. No induration/bogginess/drainage. Wound culture (official) --> Streptococcus Viridans. Problem List - Problems (1) Abscess Assessment/Plan: IV ABX per ID to cover S.Viridans Cont care per medicine HD per schedule No further surgical intervention On behalf of Dr. Steiner, thank you for the opportunity to participate in your patient's care. Code(s): L02.91 - CUTANEOUS ABSCESS, UNSPECIFIED
[2017-06-05 10:53] VITALS: BP 76/29; PULSE 71; TEMP 97.6
[2017-06-05] MEDS ORDERED: PT OWN MED DRAWER 7, Y5N ONE (10:55)
[2017-06-05] MEDS: HYDROCORTISONE 2.5% TOPICAL CREAM 30 GM TUBE TP SCH ×2 (10:56→11:15)
[2017-06-05] MEDS: BACITRACIN 15 GM TUBE TOPICAL OINTMENT TP SCH (10:56)
[2017-06-05] MEDS: LACTULOSE 20 GM/30 ML UDC (FOR ORAL USE ONLY) PO SCH (10:57)
[2017-06-05] MEDS: CEPHALEXIN MONOHYDRATE 500 MG CAPSULE (UD) PO SCH (10:57)
[2017-06-05] MEDS: AMIODARONE HCL 200 MG TABLET (FP) PO SCH (10:57)
[2017-06-05] MEDS: VITAMIN B COMP W-C 1 EA TABLET PO SCH (10:58)
[2017-06-05] MEDS: MIDODRINE HCL 5 MG TABLET PO SCH (10:59)
[2017-06-05] MEDS ORDERED: oxyCODONE HCL 5 MG TABLET PO ONE (14:30)
== END 2017-06-05 14:44 | disposition home health service (06) | DRG 981 ==
LOC: JER 14:38 → JERBED 16:45 → J8W 05-16 13:00
PROVIDERS: ADMIT Internal Medicine; ATTEND Internal Medicine
PROC: 5A1D70Z Performance of Urinary Filtration, Intermittent, Less than 6 Hours Per Day (ICD-10-PCS; 2017-05-16)
PROC: 30233K1 Transfusion of Nonautologous Frozen Plasma into Peripheral Vein, Percutaneous Approach (ICD-10-PCS; 2017-05-19)
PROC: 30233N1 Transfusion of Nonautologous Red Blood Cells into Peripheral Vein, Percutaneous Approach (ICD-10-PCS; 2017-05-19)
PROC: 05PYX3Z Removal of Infusion Device from Upper Vein, External Approach (ICD-10-PCS; principal; 2017-05-22)
PROC: 0W9G3ZX Drainage of Peritoneal Cavity, Percutaneous Approach, Diagnostic (ICD-10-PCS; 2017-05-22)
PROC: 0WHG03Z Insertion of Infusion Device into Peritoneal Cavity, Open Approach (ICD-10-PCS; 2017-05-29)
PROC: 0W960ZX Drainage of Neck, Open Approach, Diagnostic (ICD-10-PCS; 2017-05-30)
DX: I13.2 Hypertensive heart and chronic kidney disease with heart failure and with stage 5 chronic kidney disease, or end stage renal disease (principal); N18.6 End stage renal disease; K65.8 Other peritonitis; R18.8 Other ascites; I48.1 Persistent atrial fibrillation; I50.22 Chronic systolic (congestive) heart failure; L02.11 Cutaneous abscess of neck; E87.1 Hypo-osmolality and hyponatremia; K92.2 Gastrointestinal hemorrhage, unspecified; I25.10 Atherosclerotic heart disease of native coronary artery without angina pectoris; I25.5 Ischemic cardiomyopathy; J44.9 Chronic obstructive pulmonary disease, unspecified; K21.9 Gastro-esophageal reflux disease without esophagitis; I25.2 Old myocardial infarction; E78.00 Pure hypercholesterolemia, unspecified; B96.1 Klebsiella pneumoniae [K. pneumoniae] as the cause of diseases classified elsewhere; I45.19 Other right bundle-branch block; I34.0 Nonrheumatic mitral (valve) insufficiency; I27.20 Pulmonary hypertension, unspecified; K74.69 Other cirrhosis of liver; E03.9 Hypothyroidism, unspecified; D69.6 Thrombocytopenia, unspecified; D63.1 Anemia in chronic kidney disease; R50.9 Fever, unspecified; F41.8 Other specified anxiety disorders; E11.42 Type 2 diabetes mellitus with diabetic polyneuropathy; E87.5 Hyperkalemia; E11.22 Type 2 diabetes mellitus with diabetic chronic kidney disease; R00.1 Bradycardia, unspecified; I42.0 Dilated cardiomyopathy; K72.90 Hepatic failure, unspecified without coma; L89.602 Pressure ulcer of unspecified heel, stage 2; E66.8 Other obesity; Z68.25 Body mass index [BMI] 25.0-25.9, adult; Z66 Do not resuscitate; Z99.2 Dependence on renal dialysis; Z95.1 Presence of aortocoronary bypass graft; Z95.5 Presence of coronary angioplasty implant and graft; Z86.73 Personal history of transient ischemic attack (TIA), and cerebral infarction without residual deficits
CPT/HCPCS: 36415; 36430; 49418; 71010-TC; 74176-TC; 76536-TC; 76942-TC; 76998-TC; 80048; 80053; 82042; 82150; 82272; 82550; 82803; 82945; 83605; 83615; 84100; 84157; 84443; 84478; 84484; 85025; 85027; 85610; 85730; 86850; 86900; 86901; 86922; 87040; 87070; 87075; 87102; 87116; 87186; 87205; 87206; 87210; 88108; 88305-TC; 89051; 93005; 93010; 93306-TC; 97116-GP; 97161-GP; 99283-25; C1729; C1769; C1894; J0885; P9017; P9038; P9058

== ENCOUNTER 2017-06-05 18:29 | Inpatient (IN) | payer OTHER ==
--- NOTE | 2017-06-05 20:18 | PDOC ---
History of Present Illness - History of Present Illness Initial Comments: 06/05/17 20:27 The patient is a 62 yo Male with a significant past medical history of Afib with RVR (on Coumadin), CAD (s/p stent and CABG), IDDM, Ischemic Dilated Cardiomyopathy, HTN, CHF and ESRD (on HD , , Sun), and R AV Fistula placement on 05/01/17, who presents to the emergency department s/p discharge after a 3 weeks admission at this hospital earlier today to [facility] for complaint of generalized weakness, SOB, and diffuse pain. The patient reportedly said to be experiencing diffuse pain at his discharge and was given oxycodone for pain without relief. The patient states he has not received dialysis today. He also reports feeling nauseous with one to two episodes of nonbloody/nonbilious emesis. The patient also reports constipation and difficulty passing stool for 2-3 days. He denies chest pain, headache and dizziness. He denies fever, chills, diarrhea. He denies dysuria, frequency, urgency and hematuria. He denies diarrhea, melena or hematochezia. Allergies: NKDA Past surgical history: stents, bypass, cholecystectomy PCP - Dr. Teran <Jacqueline Soto - Last Filed: 06/05/17 20:39> - General History Source: Patient <Wesley Alegria - Last Filed: 06/06/17 19:33> - General Chief Complaint: Weakness Stated Complaint: WEAKNESS/ABD PAIN Time Seen by Provider: 06/05/17 20:12 Past History <Jacqueline Soto - Last Filed: 06/05/17 20:39> - Past Medical History Anemia: Yes Asthma: Yes (HX BRONCHITIS, COPD) Cancer: No Cardiac Disorders: Yes (S/P open heart SX c/ bypass, stent placement) CVA: Yes (no residual) COPD: No CHF: Yes (CAD-MS) Dementia: No Diabetes: Yes Dialysis: Yes (SUN-Sun) GI Disorders: Yes (reflux) Disorders: Yes (ESRD-DIALYSIS ,,SAT) HTN: Yes Hypercholesterolemia: Yes Liver Disease: No Seizures: No Thyroid Disease: No - Surgical History Abdominal Surgery: Yes Appendectomy: No Cardiac Surgery: Yes (Stent placement, Open heart SX, BYpass SX) Cholecystectomy: Yes (2003) Lung Surgery: No Neurologic Surgery: No Orthopedic Surgery: No - Immunization History Td Vaccination: Yes Immunization Up to Date: Yes - Suicide/Smoking/Psychosocial Hx Smoking Status: No Smoking History: Never smoked Years of Tobacco Use: 0 Have you smoked in the past 12 months: No Number of Cigarettes Smoked Daily: 0 Cigars Per Day: 0 Hx Alcohol Use: No Drug/Substance Use Hx: No Substance Use Type: None Hx Substance Use Treatment: No <Wesley Alegria - Last Filed: 06/06/17 19:33> - Past Medical History Allergies/Adverse Reactions: Allergies Allergy/AdvReac Type Severity Reaction Status Date / Time No Known Drug Allergies Allergy Verified 06/05/17 18:30 Home Medications: Ambulatory Orders Sucralfate [Carafate -] 1 gm PO BID 12/19/16 Levothyroxine [Synthroid -] 75 mcg PO DAILY@0700 tablet 12/24/16 Midodrine HCl [Proamatine -] 10 mg PO DAILY tablet 12/24/16 Sodium Polystyrene Sulfonate [Kayexalate -] 15 gm PO Q2D #1 bottle 01/25/17 Polyethylene Glycol 3350 [Miralax 255 gm Btl -] 17 gm PO DAILY #1 bottle Insulin Glargine,Hum.rec.anlog [Lantus (10mL VIAL) -] 15 units SQ DAILY Amiodarone HCl [Cordarone -] 100 mg PO DAILY 05/01/17 Sevelamer HCl [Renagel] 800 mg PO TID 05/01/17 Lactulose (Oral Use) [Cephulac -] 20 gm PO DAILY #1 bottle 05/09/17 Vitamin B Comp W-C [Nephro-Adalberto -] 1 tablet PO DAILY #30 tablet 06/01/17 Ondansetron [Zofran -] 4 mg PO Q12H PRN #10 tablet 06/04/17 Oxycodone HCl/Acetaminophen [Percocet 10-325 mg Tablet] 1 each PO TID PRN #30 tablet MDD 3 06/04/17 Review of Systems - Review of Systems Able to Perform ROS?: Yes Comments:: 06/05/17 20:28 CONSTITUTIONAL: (+) generalized weakness, Absent: fever, chills, diaphoresis, malaise, loss of appetite HEENT: Absent: rhinorrhea, nasal congestion, throat pain, throat swelling, difficulty swallowing, mouth swelling, ear pain, eye pain, visual Changes CARDIOVASCULAR: Absent: chest pain, syncope, palpitations, irregular heart rate, lightheadedness , peripheral edema RESPIRATORY: (+) shortness of breath,Absent: cough, dyspnea with exertion, orthopnea, wheezing, stridor, hemoptysis GASTROINTESTINAL: (+) nausea, vomiting,constipation,Absent: abdominal pain, abdominal distension, diarrhea, melena, hematochezia GENITOURINARY: Absent: dysuria, frequency, urgency, hesitancy, hematuria, flank pain, genital pain MUSCULOSKELETAL: (+) diffuse body pain. Absent: joint swelling SKIN: Absent: rash, itching, pallor HEMATOLOGIC/IMMUNOLOGIC: Absent: easy bleeding, easy bruising, lymphadenopathy, frequent infections ENDOCRINE: Absent: unexplained weight gain, unexplained weight loss, heat intolerance, cold intolerance NEUROLOGIC: Absent: headache, focal weakness or paresthesias, dizziness, unsteady gait, seizure, mental status changes, bladder or bowel incontinence PSYCHIATRIC: Absent: anxiety, depression, suicidal or homicidal ideation, hallucinations. <Jacqueline Soto - Last Filed: 06/05/17 20:39> *Physical Exam - Vital Signs Last Vital Signs Temp Pulse Resp BP Pulse Ox 97.6 F 104 H 16 95/40 100 06/05/17 18:34 06/05/17 18:34 06/05/17 18:34 06/05/17 18:34 06/05/17 18:34 - Physical Exam Comments: 06/05/17 20:29 GENERAL: (+) in mild distress. Well developed, well nourished. Awake and alert. HEENT: Normocephalic, atraumatic. PERRLA, EOMI. No conjunctival pallor. Sclera are non- icteric. Moist mucous membranes. Oropharynx is clear. NECK: Supple. Full ROM. No JVD. Carotid pulses 2+ and symmetric, without bruits. No thyromegaly. No lymphadenopathy. CARDIOVASCULAR: Regular rate and rhythm. No murmurs, rubs, or gallops. Distal pulses are 2+ and symmetric. PULMONARY: (+) decreased breath sounds bilaterally. Lungs clear to auscultation bilaterally. No wheezing, rales or rhonchi. ABDOMINAL: (+) Very distended abdomen, ascites, Cirrhotic. Soft. Non-tender. No rebound or guarding. No organomegaly. Normoactive bowel sounds. MUSCULOSKELETAL Normal range of motion at all joints. No bony deformities or tenderness. No CVA tenderness. EXTREMITIES: No cyanosis. No clubbing. No edema. No calf tenderness. SKIN: Warm and dry. Normal capillary refill. No rashes. No jaundice. NEUROLOGICAL: Alert, awake, appropriate. Cranial nerves 2-12 intact. Normoreflexic in the upper and lower extremities. Normal speech. Toes are down-going bilaterally. Gait unassessed PSYCHIATRIC: Cooperative. Good eye contact. Appropriate mood and affect. <Jacqueline Soto - Last Filed: 06/05/17 20:39> - Vital Signs Last Vital Signs Temp Pulse Resp BP Pulse Ox 97.6 F 104 H 16 95/40 100 06/05/17 18:34 06/05/17 18:34 06/05/17 18:34 06/05/17 18:34 06/05/17 18:34 <Wesley Alegria - Last Filed: 06/06/17 19:33> Heart Score/ECG Review - ECG Intrepretation Comment:: 06/05/17 20:34 ECG was read by Dr. Alegria at 18:40 Impression: Atrial fibrillation with rapid ventricular response, right bundle branch block, anterolateral infarct (age undetermined). Vent. Rate: 106 bpm <Jacqueline Soto - Last Filed: 06/05/17 20:39> ED Treatment Course - LABORATORY CBC & Chemistry Diagram: 06/05/17 21:07 06/05/17 21:07 <Wesley Alegria - Last Filed: 06/06/17 19:33> Medical Decision Making - Medical Decision Making 06/05/17 20:31 Dr. Teran was paged via phone answering service at 20:15 requesting a call back for doctor to doctor consult. 06/05/17 20:42 A message was left with the phone answering service of Dr. Teagan Morillo to inform Dr. Morillo of the consult requested by Dr. Teran. <Jacqueline Soto - Last Filed: 06/05/17 20:39> - Medical Decision Making 06/06/17 19:32 Dr. Alegria: The scribe's documentation has been prepared under my direction and personally reviewed by me in its entirery. I confirm that the note above accurately reflects all work, treatment, procedures, and medical decision making performed by me. <Wesley Alegria - Last Filed: 06/06/17 19:33> *DC/Admit/Observation/Transfer - Attestations Scribe Attestion: 06/05/17 20:31 Documentation prepared by Jacqueline Soto, acting as senior medical writer for Wesley Alegria DO <Jacqueline Soto - Last Filed: 06/05/17 20:39> - Discharge Dispostion Admit: Yes <Wesley Alegria - Last Filed: 06/06/17 19:33> Diagnosis at time of Disposition: ESRD (end stage renal disease), Generalized weakness Cirrhosis Qualifiers: Hepatic cirrhosis type: unspecified hepatic cirrhosis Ascites presence: with ascites Qualified Code(s): K74.60 - Unspecified cirrhosis of liver Ascites Qualifiers: Ascites type: other type Abdominal pain Qualifiers: Abdominal location: generalized Qualified Code(s): R10.84 - Generalized abdominal pain - Discharge Dispostion Condition at time of disposition: Stable
[2017-06-05] MEDS ORDERED: ONDANSETRON 4 MG TABLET PO PRN (21:18)
[2017-06-05 21:43] LABS: HEMATOCRIT 33.2 % (35.4-49); HEMOGLOBIN 9.8 GM/dL (11.7-16.9); MCHC 29.5 g/dl (32.0-35.9); MEAN CELL VOLUME 95.1 fl (80-96); MEAN PLT VOLUME 10.7 fl (7.5-11.1); PLATELET COUNT 92 K/MM3 (134-434); RBC 3.49 M/mm3 (4.00-5.60); RDW 23.4 % (11.9-15.9)
[2017-06-05 21:55] LABS: INR 1.14 (0.82-1.09); PROTHROMBIN TIME (PATIENT) 12.9 SEC (9.98-11.88)
[2017-06-05 22:10] LABS: CHLORIDE 96 mmol/L (98-107); POTASSIUM 3.7 mmol/L (3.5-5.1); SODIUM 135 mmol/L (136-145)
[2017-06-05 22:31] LABS: ALBUMIN 2.3 g/dl (3.4-5.0); ALK PHOS 151 U/L (45-117); ANION GAP 13 (8-16); BILIRUBIN,TOTAL 0.5 mg/dL (0.2-1.0); BLOOD UREA NITROGEN 48 mg/dL (7-18); CALCIUM 7.2 mg/dL (8.5-10.1); CO2 26 mmol/L (21-32); CREATININE 6.4 mg/dL (0.7-1.3); GLUCOSE,RANDOM 170 mg/dL (74-106); MAGNESIUM 1.7 mg/dL (1.8-2.4); N-TERMINAL BNP 69117.72 pg/ml (5-125); SGOT/AST 29 U/L (15-37); SGPT/ALT 12 U/L (12-78); TOT PROT 6.5 g/dl (6.4-8.2)
[2017-06-06] MEDS ORDERED: SUCRALFATE 1 GM TABLET (FP) ONE (00:18)
[2017-06-06] MEDS: SUCRALFATE 1 GM TABLET (FP) PO SCH ×3 (00:24→21:21)
[2017-06-06 01:12] LABS: SMUDGE CELLS FEW
[2017-06-06 01:13] LABS: ANISOCYTOSIS 3+; MACROCYTOSIS 1+
[2017-06-06] MEDS ORDERED: INSULIN (NOVOLOG) ASPART 100 UNITS/ML 10ML VIAL ONE ×4 (04:56→20:00)
[2017-06-06] MEDS: INSULIN SLIDING SCALE (NOVOLOG) 1 VIAL SQ SCH ×7 (06:00→21:21)
[2017-06-06] MEDS: LEVOTHYROXINE NA 75 MCG TABLET (FP) PO SCH (07:26)
[2017-06-06] MEDS: SEVELAMER CARBONATE 800 MG TAB (FP) PO SCH ×4 (07:29→18:13)
--- NOTE | 2017-06-06 09:52 | HP ---
Admitting History and Physical - Primary Care Physician PCP: Cecilia Teran - Admission Chief Complaint: weakness History of Present Illness: was discharged to [facility] yesterday, but once got there he got nauseous, vomited and looked sick, so they sent him back. - Past Medical History FIRST LEVELER: Yes: Peripheral Neuropathy Cardiovascular: Yes: AFIB, CAD (s/p CABG, PCI/stent), CHF (severe biventricular failure, [employer] ICD), HTN, Hyperlipdemia, Mitral Insufficiency, Murmur, Pulmonary Hypertension Pulmonary: Yes: COPD, Other (h/o MARIAN in lungs-not treated) Gastrointestinal: Yes: GI Bleed (h/o melena in past), Other (gastritis) Hepatobiliary: Yes: Cirrhosis (felt to be due to right heart failure and GONG ) , Cholelithiasis (s/p lap cholecystectomy) Renal/: Yes: Renal Failure, Hemodialysis Heme/Onc: Yes: Anemia, Thrombocytopenia Psych: Yes: Anxiety Endocrine: Yes: Diabetes Mellitus, Hypothyroidism - Past Surgical History Past Surgical History: Yes: AICD, AV Fistula/Graft (LUE), CABG, Cholecystectomy , Upper Endoscopy Additional Past Surgical History: recent pleurex cath.placed to abdomen for ascites - Smoking History Smoking history: Never smoked Have you smoked in the past 12 months: No Aproximately how many cigarettes per day: 0 - Alcohol/Substance Use Hx Alcohol Use: No History of Substance Use: reports: None - Social History ADL: Independent 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 History of Recent Travel: No Home Medications - Allergies Allergies/Adverse Reactions: Allergies Allergy/AdvReac Type Severity Reaction Status Date / Time No Known Drug Allergies Allergy Verified 06/05/17 18:30 - Home Medications Home Medications: Ambulatory Orders Sucralfate [Carafate -] 1 gm PO BID 12/19/16 Levothyroxine [Synthroid -] 75 mcg PO DAILY@0700 tablet 12/24/16 Midodrine HCl [Proamatine -] 10 mg PO DAILY tablet 12/24/16 Sodium Polystyrene Sulfonate [Kayexalate -] 15 gm PO Q2D #1 bottle 01/25/17 Polyethylene Glycol 3350 [Miralax 255 gm Btl -] 17 gm PO DAILY #1 bottle Insulin Glargine,Hum.rec.anlog [Lantus (10mL VIAL) -] 15 units SQ DAILY Amiodarone HCl [Cordarone -] 100 mg PO DAILY 05/01/17 Sevelamer HCl [Renagel] 800 mg PO TID 05/01/17 Lactulose (Oral Use) [Cephulac -] 20 gm PO DAILY #1 bottle 05/09/17 Vitamin B Comp W-C [Nephro-Adalberto -] 1 tablet PO DAILY #30 tablet 06/01/17 Ondansetron [Zofran -] 4 mg PO Q12H PRN #10 tablet 06/04/17 Oxycodone HCl/Acetaminophen [Percocet 10-325 mg Tablet] 1 each PO TID PRN #30 tablet MDD 3 06/04/17 Family Disease History - Family Disease History Family Disease History: Other: Father (lived to 85- natural cause), Mother ( lived to 71- natural cause) Physical Examination Vital Signs: Vital Signs Temperature 97.7 F 06/06/17 01:06 Pulse Rate 107 H 06/06/17 07:54 Respiratory Rate 18 06/06/17 07:54 Blood Pressure 113/67 06/06/17 07:54 O2 Sat by Pulse Oximetry (%) 97 06/06/17 07:59 Constitutional: Yes: Calm Eyes: Yes: Conjunctiva Clear HENT: Yes: Atraumatic Neck: Yes: Supple Cardiovascular: Yes: Regular Rate and Rhythm Respiratory: Yes: Diminished (at right base) Gastrointestinal: Yes: Normal Bowel Sounds, Soft, Abdomen, Obese, Ascites, Other (cath with lateral insicion draining clear fkuid) Edema: Yes Edema: LLE: 1+, RLE: 1+ Peripheral Pulses WNL: Yes Integumentary: Yes: Other (black eschar on heel, tage two sacral decubitus) Wound/Incision: Yes: Other (neck wound healing well, AV fistula wound healing well) Neurological: Yes: Asterixis (mild), Unsteady Gait, Weakness Psychiatric: Yes: WNL Labs: CBC, BMP 06/05/17 21:07 06/05/17 21:07 Imaging - Results Chest X-ray: Report Reviewed Cat Scan: Report Reviewed Problem List - Problems (1) Abdominal pain Code(s): R10.9 - UNSPECIFIED ABDOMINAL PAIN Qualifiers: Abdominal location: generalized Qualified Code(s): R10.84 - Generalized abdominal pain (2) Ascites Code(s): R18.8 - OTHER ASCITES Qualifiers: Ascites type: other type (3) Cirrhosis Code(s): K74.60 - UNSPECIFIED CIRRHOSIS OF LIVER Qualifiers: Hepatic cirrhosis type: unspecified hepatic cirrhosis Ascites presence: with ascites Qualified Code(s): K74.60 - Unspecified cirrhosis of liver (4) ESRD (end stage renal disease) Code(s): N18.6 - END STAGE RENAL DISEASE (5) Generalized weakness Code(s): R53.1 - WEAKNESS (6) Atrial fibrillation Code(s): I48.91 - UNSPECIFIED ATRIAL FIBRILLATION Qualifiers: Atrial fibrillation type: persistent Qualified Code(s): I48.1 - Persistent atrial fibrillation (7) Congestive heart failure Code(s): I50.9 - HEART FAILURE, UNSPECIFIED Qualifiers: Congestive heart failure type: combined Congestive heart failure chronicity : chronic Qualified Code(s): I50.42 - Chronic combined systolic (congestive) and diastolic (congestive) heart failure (8) Diabetes mellitus Code(s): E11.9 - TYPE 2 DIABETES MELLITUS WITHOUT COMPLICATIONS Qualifiers: Diabetes mellitus type: type 2 Diabetes mellitus complication status: with kidney complications Diabetes mellitus complication detail: with chronic kidney disease Diabetes mellitus policy director insulin use: with penitentiary use Chronic kidney disease stage: on chronic dialysis Qualified Code(s): E11.22 - Type 2 diabetes mellitus with diabetic chronic kidney disease (9) ICD (implantable cardioverter-defibrillator) in place Code(s): Z95.810 - PRESENCE OF AUTOMATIC (IMPLANTABLE) CARDIAC DEFIBRILLATOR (10) Ischemic dilated cardiomyopathy Code(s): I25.5 - ISCHEMIC CARDIOMYOPATHY Assessment/Plan physical exam is about baseline CT showed no acute abnormality HD today physical therapy check ammonia level dc planning should be with home hospice
--- NOTE | 2017-06-06 10:17 | PN ---
Progress Note (short form) - Note Progress Note: RENAL LEFT FOR [facility] RETURNED SAME DAY SPOKE TO PATIENT SON AND DR CASTREJON IN DETAIL NEED TO UNDERSTAND THE REALITY HERE BEST OPTION IS HOME WITH [facility] CONTINUE HD TILL POSSIBLE AND WHEN NOT ABLE TRANSITION TO [facility] AND STOP HD HAS HOME O2 AND A HOSPITAL BED ALREADY LUNGS CLEAR RT ARM AVG ABD SOFT NON TENDER PIG TAIL EXT 1 + EDEMA ABLE TO STAND UP CT NOTED NO SIGNIFICANT FLUID OR DISTENSION OF BOWEL LOOPS HD TODAY LABS NOTED CASE D/W ASSEMBLY CLEANER TIME SPENT 30 MIN
[2017-06-06] MEDS: VITAMIN B COMP W-C 1 EA TABLET PO SCH (11:34)
[2017-06-06] MEDS: HYDROCORTISONE 2.5% TOPICAL CREAM 30 GM TUBE TP SCH (11:36)
[2017-06-06] MEDS: MIDODRINE HCL 5 MG TABLET PO SCH (11:37)
[2017-06-06] MEDS: AMIODARONE HCL 200 MG TABLET (FP) PO SCH (11:37)
[2017-06-06] MEDS: LACTULOSE 20 GM/30 ML UDC (FOR ORAL USE ONLY) PO SCH (11:38)
[2017-06-06] MEDS: CEPHALEXIN MONOHYDRATE 500 MG CAPSULE (UD) PO SCH (11:38)
[2017-06-06] MEDS ORDERED: EPOETIN ALFA 3,000 UNIT/1 ML ML SQ ONE (14:30)
[2017-06-06] MEDS ORDERED: PT OWN MED DRAWER 7, Y5N ONE (15:42)
[2017-06-06] MEDS ORDERED: oxyCODONE HCL 5 MG TABLET PO PRN (15:44)
[2017-06-06] MEDS: ACETAMINOPHEN 325 MG TABLET (FP) PO PRN (15:50)
[2017-06-06] MEDS: oxyCODONE HCL 5 MG TABLET PO PRN (18:14)
[2017-06-06 18:33] VITALS: BMI 26.6
[2017-06-07] MEDS: oxyCODONE HCL 5 MG TABLET PO PRN ×4 (00:14→20:13)
[2017-06-07] MEDS: ACETAMINOPHEN 325 MG TABLET (FP) PO PRN ×3 (00:16→20:13)
[2017-06-07] MEDS: INSULIN SLIDING SCALE (NOVOLOG) 1 VIAL SQ SCH ×4 (06:56→21:28)
[2017-06-07] MEDS: LEVOTHYROXINE NA 75 MCG TABLET (FP) PO SCH (06:56)
[2017-06-07] MEDS: SEVELAMER CARBONATE 800 MG TAB (FP) PO SCH ×3 (09:10→17:58)
[2017-06-07] MEDS: AMIODARONE HCL 200 MG TABLET (FP) PO SCH (09:11)
[2017-06-07] MEDS: LACTULOSE 20 GM/30 ML UDC (FOR ORAL USE ONLY) PO SCH ×3 (09:11→21:22)
[2017-06-07] MEDS: MIDODRINE HCL 5 MG TABLET PO SCH (09:13)
[2017-06-07] MEDS: SUCRALFATE 1 GM TABLET (FP) PO SCH ×2 (09:13→21:22)
[2017-06-07] MEDS: VITAMIN B COMP W-C 1 EA TABLET PO SCH (09:13)
[2017-06-07] MEDS: CEPHALEXIN MONOHYDRATE 500 MG CAPSULE (UD) PO SCH (09:14)
[2017-06-07] MEDS: HYDROCORTISONE 2.5% TOPICAL CREAM 30 GM TUBE TP SCH (10:21)
[2017-06-07] MEDS ORDERED: PT OWN MED DRAWER 7, Y5N ONE ×2 (10:41→19:04)
--- NOTE | 2017-06-07 10:42 | PN ---
Progress Note (short form) - Note Progress Note: Vital Signs Period Temp Pulse Resp BP Sys/Lopez Pulse Ox Last 24 Hr 97.3 F-98.5 F 100-119 18-22 94-141/36-87 100 S1S2 irreg.irreg. lungs cta ant abd soft distended +BS pleurex draining large amount of clear fluid at incision site and below subcutenous edema persists c/o throwing up or vomiting blood last night-unable to quantify, was unwitnessed by staff check CBC r/o blood loss d/w -pt needs to lie on his right side to help wound closure will access cath tomorrow for drainage again increase lactulose in view of high ammonia again d/w son Filiberto at length-and is agreement with continuation of his DNR/ DNI order. plan to take him home with hospice Problem List - Problems (1) Abdominal pain Code(s): R10.9 - UNSPECIFIED ABDOMINAL PAIN Qualifiers: Abdominal location: generalized Qualified Code(s): R10.84 - Generalized abdominal pain (2) Ascites Code(s): R18.8 - OTHER ASCITES Qualifiers: Ascites type: other type (3) Cirrhosis Code(s): K74.60 - UNSPECIFIED CIRRHOSIS OF LIVER Qualifiers: Hepatic cirrhosis type: unspecified hepatic cirrhosis Ascites presence: with ascites Qualified Code(s): K74.60 - Unspecified cirrhosis of liver (4) ESRD (end stage renal disease) Code(s): N18.6 - END STAGE RENAL DISEASE (5) Generalized weakness Code(s): R53.1 - WEAKNESS (6) Atrial fibrillation Code(s): I48.91 - UNSPECIFIED ATRIAL FIBRILLATION Qualifiers: Atrial fibrillation type: persistent Qualified Code(s): I48.1 - Persistent atrial fibrillation (7) Congestive heart failure Code(s): I50.9 - HEART FAILURE, UNSPECIFIED Qualifiers: Congestive heart failure type: combined Congestive heart failure chronicity : chronic Qualified Code(s): I50.42 - Chronic combined systolic (congestive) and diastolic (congestive) heart failure (8) Diabetes mellitus Code(s): E11.9 - TYPE 2 DIABETES MELLITUS WITHOUT COMPLICATIONS Qualifiers: Diabetes mellitus type: type 2 Diabetes mellitus complication status: with kidney complications Diabetes mellitus complication detail: with chronic kidney disease Diabetes mellitus long term care social worker insulin use: with intermediate use Chronic kidney disease stage: on chronic dialysis Qualified Code(s): E11.22 - Type 2 diabetes mellitus with diabetic chronic kidney disease (9) ICD (implantable cardioverter-defibrillator) in place Code(s): Z95.810 - PRESENCE OF AUTOMATIC (IMPLANTABLE) CARDIAC DEFIBRILLATOR (10) Ischemic dilated cardiomyopathy Code(s): I25.5 - ISCHEMIC CARDIOMYOPATHY
[2017-06-07] MEDS: SODIUM POLYSTYRENE SULFONATE 15 GM/60 ML BOTTLE PO SCH (11:18)
[2017-06-07] MEDS ORDERED: INSULIN (NOVOLOG) ASPART 100 UNITS/ML 10ML VIAL ONE ×3 (12:19→21:17)
[2017-06-07 12:31] LABS: HEMATOCRIT 34.1 % (35.4-49); MCH 27.1 pg (25.7-33.7); MCHC 29.3 g/dl (32.0-35.9); MEAN CELL VOLUME 92.6 fl (80-96); MEAN PLT VOLUME 9.1 fl (7.5-11.1); PLATELET COUNT 88 K/MM3 (134-434); RBC 3.68 M/mm3 (4.00-5.60); RDW 22.7 % (11.9-15.9); WHITE BLOOD COUNT 7.8 K/mm3 (4.0-10.0)
[2017-06-07 12:45] LABS: ADD RBC MORPHOLOGY YES
[2017-06-07 12:58] LABS: ALBUMIN 2.2 g/dl (3.4-5.0); ALK PHOS 163 U/L (45-117); ANION GAP 10 (8-16); BILIRUBIN,TOTAL 0.5 mg/dL (0.2-1.0); BLOOD UREA NITROGEN 42 mg/dL (7-18); CALCIUM 7.3 mg/dL (8.5-10.1); CHLORIDE 95 mmol/L (98-107); CO2 27 mmol/L (21-32); CREATININE 5.8 mg/dL (0.7-1.3); GLUCOSE,RANDOM 191 mg/dL (74-106); POTASSIUM 3.9 mmol/L (3.5-5.1); SGOT/AST 19 U/L (15-37); SGPT/ALT 7 U/L (12-78); SODIUM 132 mmol/L (136-145); TOT PROT 6.6 g/dl (6.4-8.2)
[2017-06-07] MEDS: diphenhydrAMINE HCL 25 MG CAPSULE (FP) PO PRN ×2 (13:33→21:22)
[2017-06-07 14:20] LABS: PLATELET ESTIMATE DECREASED; SMUDGE CELLS MANY
[2017-06-07 14:21] LABS: ANISOCYTOSIS 2+; MACROCYTOSIS 2+
[2017-06-08] MEDS: oxyCODONE HCL 5 MG TABLET PO PRN ×4 (02:09→19:03)
[2017-06-08] MEDS: ACETAMINOPHEN 325 MG TABLET (FP) PO PRN ×4 (02:09→19:03)
[2017-06-08] MEDS: INSULIN SLIDING SCALE (NOVOLOG) 1 VIAL SQ SCH ×4 (06:11→22:24)
[2017-06-08] MEDS: LEVOTHYROXINE NA 75 MCG TABLET (FP) PO SCH (06:14)
[2017-06-08] MEDS: diphenhydrAMINE HCL 25 MG CAPSULE (FP) PO PRN (06:14)
[2017-06-08] MEDS: SEVELAMER CARBONATE 800 MG TAB (FP) PO SCH ×3 (08:02→17:31)
--- NOTE | 2017-06-08 08:46 | PN ---
Progress Note (short form) - Note Progress Note: CBC, BMP 06/07/17 12:27 06/07/17 12:27 Vital Signs Period Temp Pulse Resp BP Sys/Lopez Pulse Ox Last 24 Hr 97.4 F-98.3 F 68-122 16-20 85-99/45-74 98 S1S2 irreg.irreg. lungs cta ant abd soft distended +BS pleurex draining large amount of clear fluid at incision site and below subcutenous edema persists d/w -pt needs to lie on his right side to help wound closure will access cath today for drainage again HD increase lactulose in view of high ammonia again d/w son Filiberto yesterday at length-and is agreement with continuation of his DNR/DNI order. plan to take him home with hospice start fentanyl Problem List - Problems (1) Abdominal pain Code(s): R10.9 - UNSPECIFIED ABDOMINAL PAIN Qualifiers: Abdominal location: generalized Qualified Code(s): R10.84 - Generalized abdominal pain (2) Ascites Code(s): R18.8 - OTHER ASCITES Qualifiers: Ascites type: other type Qualified Code(s): R18.8 - Other ascites (3) Cirrhosis Code(s): K74.60 - UNSPECIFIED CIRRHOSIS OF LIVER Qualifiers: Hepatic cirrhosis type: unspecified hepatic cirrhosis Ascites presence: with ascites Qualified Code(s): K74.60 - Unspecified cirrhosis of liver (4) ESRD (end stage renal disease) Code(s): N18.6 - END STAGE RENAL DISEASE (5) Generalized weakness Code(s): R53.1 - WEAKNESS (6) Atrial fibrillation Code(s): I48.91 - UNSPECIFIED ATRIAL FIBRILLATION Qualifiers: Atrial fibrillation type: persistent Qualified Code(s): I48.1 - Persistent atrial fibrillation (7) Congestive heart failure Code(s): I50.9 - HEART FAILURE, UNSPECIFIED Qualifiers: Congestive heart failure type: combined Congestive heart failure chronicity : chronic Qualified Code(s): I50.42 - Chronic combined systolic (congestive) and diastolic (congestive) heart failure (8) Diabetes mellitus Code(s): E11.9 - TYPE 2 DIABETES MELLITUS WITHOUT COMPLICATIONS Qualifiers: Diabetes mellitus type: type 2 Diabetes mellitus complication status: with kidney complications Diabetes mellitus complication detail: with chronic kidney disease Diabetes mellitus usp insulin use: with usp use Chronic kidney disease stage: on chronic dialysis Qualified Code(s): E11.22 - Type 2 diabetes mellitus with diabetic chronic kidney disease; N18.6 - End stage renal disease; N18.6 - End stage renal disease; N18.6 - End stage renal disease; N18.6 - End stage renal disease; Z79.4 - exterminator helper (current) use of insulin; Z79.4 - assisted (current) use of insulin; Z79.4 - exterminator helper (current ) use of insulin; Z79.4 - exterminator helper (current) use of insulin; Z99.2 - Dependence on renal dialysis; Z99.2 - Dependence on renal dialysis; Z99.2 - Dependence on renal dialysis; Z99.2 - Dependence on renal dialysis (9) ICD (implantable cardioverter-defibrillator) in place Code(s): Z95.810 - PRESENCE OF AUTOMATIC (IMPLANTABLE) CARDIAC DEFIBRILLATOR (10) Ischemic dilated cardiomyopathy Code(s): I25.5 - ISCHEMIC CARDIOMYOPATHY
[2017-06-08] MEDS ORDERED: FENTANYL PATCH WASTE TD PRN (09:00)
[2017-06-08] MEDS: fentaNYL 25mcg/hr PATCH.TD72 TD SCH (10:13)
[2017-06-08] MEDS: VITAMIN B COMP W-C 1 EA TABLET PO SCH (10:14)
[2017-06-08] MEDS: SUCRALFATE 1 GM TABLET (FP) PO SCH ×2 (10:14→22:19)
[2017-06-08] MEDS: CEPHALEXIN MONOHYDRATE 500 MG CAPSULE (UD) PO SCH (10:15)
[2017-06-08] MEDS: MIDODRINE HCL 5 MG TABLET PO SCH (10:16)
[2017-06-08] MEDS: AMIODARONE HCL 200 MG TABLET (FP) PO SCH (10:29)
[2017-06-08] MEDS: LACTULOSE 20 GM/30 ML UDC (FOR ORAL USE ONLY) PO SCH ×2 (10:30→22:19)
[2017-06-08] MEDS ORDERED: PT OWN MED DRAWER 7, Y5N ONE ×2 (10:33→17:53)
[2017-06-08] MEDS: HYDROCORTISONE 2.5% TOPICAL CREAM 30 GM TUBE TP SCH (10:33)
--- NOTE | 2017-06-08 10:36 | PN ---
Progress Note (short form) - Note Progress Note: RENAL LEFT FOR [facility] RETURNED SAME DAY SPOKE TO PATIENT DAUGTER AT BEDSIDE NEED TO UNDERSTAND THE REALITY HERE BEST OPTION IS HOME WITH [facility] BOTHERED BY LEAK IN ABD EDEMA WITH SKIN BREAKDOWN ESCHAR IN LEFT KNEE SCROTUM LUNGS CLEAR RT ARM AVG ABD SOFT DISTENDED NON TENDER PIG TAIL IN SIGNIFICANT LEAK AWAKE ALERT BUT MISERABLE HD TODAY HOME WITH OUT PT HD NOT POSSIBLE THEY DO NOT WANT NH WITH DIALYSIS THEN ONLY OPTION IS HOME HOSPICE AND STOPPING DIALYSIS WILL D/W [facility] AND GET BACK
[2017-06-08] MEDS ORDERED: INSULIN (NOVOLOG) ASPART 100 UNITS/ML 10ML VIAL ONE ×3 (12:29→21:21)
[2017-06-09 00:07] LABS: HBSAG SCREEN Negative (Negative); HEP A AB, IGM Negative (Negative); HEP B CORE AB, TOT Negative (Negative)
[2017-06-09] MEDS: oxyCODONE HCL 5 MG TABLET PO PRN ×4 (01:42→20:44)
[2017-06-09] MEDS: ACETAMINOPHEN 325 MG TABLET (FP) PO PRN ×3 (01:51→14:17)
[2017-06-09] MEDS: LEVOTHYROXINE NA 75 MCG TABLET (FP) PO SCH (06:28)
[2017-06-09] MEDS: INSULIN SLIDING SCALE (NOVOLOG) 1 VIAL SQ SCH ×4 (06:32→21:34)
--- NOTE | 2017-06-09 08:10 | PN ---
Progress Note (short form) - Note Progress Note: Vital Signs Period Temp Pulse Resp BP Sys/Lopez Pulse Ox Last 24 Hr 97 F-98.4 F 98-126 16-22 78-149/45-107 96-96 S1S2 irreg.irreg.tachy lungs cta ant abd soft distended +BS pleurex draining large amount of clear fluid at incision site and below subcutenous edema persists drained 300 cc peritoneal fluid yesterday c/o very severe abdominal pain since pleurex placement IMP end stage cardiomyopathy with left and right heart failure cirrhosis ESRD hypotension started fentanyl will ask to remove pleurex since it causes much discomfort to patient, if need be will periodically do paracentesis, but does not have very large amount of fluid reaccumulation at present tolerating less and less HD daily, with persistent edema small wounds, scabs developing due to edema and minimal mobility topical creams pain management Problem List - Problems (1) Abdominal pain Code(s): R10.9 - UNSPECIFIED ABDOMINAL PAIN Qualifiers: Abdominal location: generalized Qualified Code(s): R10.84 - Generalized abdominal pain (2) Ascites Code(s): R18.8 - OTHER ASCITES Qualifiers: Ascites type: other type Qualified Code(s): R18.8 - Other ascites (3) Cirrhosis Code(s): K74.60 - UNSPECIFIED CIRRHOSIS OF LIVER Qualifiers: Hepatic cirrhosis type: unspecified hepatic cirrhosis Ascites presence: with ascites Qualified Code(s): K74.60 - Unspecified cirrhosis of liver (4) ESRD (end stage renal disease) Code(s): N18.6 - END STAGE RENAL DISEASE (5) Generalized weakness Code(s): R53.1 - WEAKNESS (6) Atrial fibrillation Code(s): I48.91 - UNSPECIFIED ATRIAL FIBRILLATION Qualifiers: Atrial fibrillation type: persistent Qualified Code(s): I48.1 - Persistent atrial fibrillation (7) Congestive heart failure Code(s): I50.9 - HEART FAILURE, UNSPECIFIED Qualifiers: Congestive heart failure type: combined Congestive heart failure chronicity : chronic Qualified Code(s): I50.42 - Chronic combined systolic (congestive) and diastolic (congestive) heart failure (8) Diabetes mellitus Code(s): E11.9 - TYPE 2 DIABETES MELLITUS WITHOUT COMPLICATIONS Qualifiers: Diabetes mellitus type: type 2 Diabetes mellitus complication status: with kidney complications Diabetes mellitus complication detail: with chronic kidney disease Diabetes mellitus usp insulin use: with watermelon inspector use Chronic kidney disease stage: on chronic dialysis Qualified Code(s): E11.22 - Type 2 diabetes mellitus with diabetic chronic kidney disease; N18.6 - End stage renal disease; Z99.2 - Dependence on renal dialysis; Z99.2 - Dependence on renal dialysis; Z99.2 - Dependence on renal dialysis; N18.6 - End stage renal disease; N18.6 - End stage renal disease; N18.6 - End stage renal disease ; Z79.4 - residential (current) use of insulin; Z79.4 - terminal computer operator (current) use of insulin; Z79.4 - terminal computer operator (current) use of insulin; Z79.4 - terminal computer operator ( current) use of insulin; Z99.2 - Dependence on renal dialysis (9) ICD (implantable cardioverter-defibrillator) in place Code(s): Z95.810 - PRESENCE OF AUTOMATIC (IMPLANTABLE) CARDIAC DEFIBRILLATOR (10) Ischemic dilated cardiomyopathy Code(s): I25.5 - ISCHEMIC CARDIOMYOPATHY
[2017-06-09] MEDS: SEVELAMER CARBONATE 800 MG TAB (FP) PO SCH ×3 (08:23→18:05)
[2017-06-09] MEDS: HYDROCORTISONE 2.5% TOPICAL CREAM 30 GM TUBE TP SCH (10:00)
[2017-06-09] MEDS ORDERED: PT OWN MED DRAWER 7, Y5N ONE (10:12)
[2017-06-09] MEDS ORDERED: SODIUM POLYSTYRENE SULFONATE 15 GM/60 ML BOTTLE PO SCH (10:34)
[2017-06-09] MEDS: NEOMYCIN/POLYMYXIN/BACITRACIN (TRIPLE ANTIBIOTIC) 28 GM OINTMENT TP SCH ×2 (10:37→21:31)
[2017-06-09] MEDS: LACTULOSE 20 GM/30 ML UDC (FOR ORAL USE ONLY) PO SCH ×3 (10:37→21:32)
[2017-06-09] MEDS: VITAMIN B COMP W-C 1 EA TABLET PO SCH (10:37)
[2017-06-09] MEDS: MIDODRINE HCL 5 MG TABLET PO SCH (10:37)
[2017-06-09] MEDS: CEPHALEXIN MONOHYDRATE 500 MG CAPSULE (UD) PO SCH (10:38)
[2017-06-09] MEDS: SUCRALFATE 1 GM TABLET (FP) PO SCH ×2 (10:38→21:31)
[2017-06-09] MEDS: MINERAL OIL/PET HY-PHL TOPICAL OINTMENT 454 GM JAR TP SCH ×2 (11:02→21:31)
[2017-06-09] MEDS: AMIODARONE HCL 200 MG TABLET (FP) PO SCH (11:03)
[2017-06-09] MEDS: SODIUM POLYSTYRENE SULFONATE 15 GM/60 ML BOTTLE PO SCH (13:35)
[2017-06-10] MEDS: oxyCODONE HCL 5 MG TABLET PO PRN ×4 (02:47→21:51)
[2017-06-10] MEDS: INSULIN SLIDING SCALE (NOVOLOG) 1 VIAL SQ SCH ×4 (06:39→21:50)
[2017-06-10] MEDS: LEVOTHYROXINE NA 75 MCG TABLET (FP) PO SCH (06:40)
--- NOTE | 2017-06-10 07:18 | PN ---
Progress Note (short form) - Note Progress Note: CBC, BMP 06/07/17 12:27 06/07/17 12:27 Vital Signs Period Temp Pulse Resp BP Sys/Lopez Pulse Ox Last 24 Hr 97.5 F-98.3 F 103-120 18-22 75-120/35-83 96-96 S1S2 irreg.irreg.tachy lungs cta ant abd soft distended +BS subcutenous edema persists c/o right hip and ankle pain and weakness c/o very severe abdominal pain since pleurex placement IMP end stage cardiomyopathy with left and right heart failure cirrhosis ESRD hypotension started fentanyl will ask to remove pleurex since it causes much discomfort to patient, if need be will periodically do paracentesis, but does not have very large amount of fluid reaccumulation at present tolerating less and less HD daily, with persistent edema small wounds, scabs developing due to edema and minimal mobility topical creams pain management f/up xarys hip and ankle Problem List - Problems (1) Abdominal pain Code(s): R10.9 - UNSPECIFIED ABDOMINAL PAIN Qualifiers: Abdominal location: generalized Qualified Code(s): R10.84 - Generalized abdominal pain (2) Ascites Code(s): R18.8 - OTHER ASCITES Qualifiers: Ascites type: other type Qualified Code(s): R18.8 - Other ascites (3) Cirrhosis Code(s): K74.60 - UNSPECIFIED CIRRHOSIS OF LIVER Qualifiers: Hepatic cirrhosis type: unspecified hepatic cirrhosis Ascites presence: with ascites Qualified Code(s): K74.60 - Unspecified cirrhosis of liver (4) ESRD (end stage renal disease) Code(s): N18.6 - END STAGE RENAL DISEASE (5) Generalized weakness Code(s): R53.1 - WEAKNESS (6) Atrial fibrillation Code(s): I48.91 - UNSPECIFIED ATRIAL FIBRILLATION Qualifiers: Atrial fibrillation type: persistent Qualified Code(s): I48.1 - Persistent atrial fibrillation (7) Congestive heart failure Code(s): I50.9 - HEART FAILURE, UNSPECIFIED Qualifiers: Congestive heart failure type: combined Congestive heart failure chronicity : chronic Qualified Code(s): I50.42 - Chronic combined systolic (congestive) and diastolic (congestive) heart failure (8) Diabetes mellitus Code(s): E11.9 - TYPE 2 DIABETES MELLITUS WITHOUT COMPLICATIONS Qualifiers: Diabetes mellitus type: type 2 Diabetes mellitus complication status: with kidney complications Diabetes mellitus complication detail: with chronic kidney disease Diabetes mellitus truck terminal manager insulin use: with truck terminal manager use Chronic kidney disease stage: on chronic dialysis Qualified Code(s): E11.22 - Type 2 diabetes mellitus with diabetic chronic kidney disease; N18.6 - End stage renal disease; Z99.2 - Dependence on renal dialysis; Z99.2 - Dependence on renal dialysis; Z99.2 - Dependence on renal dialysis; N18.6 - End stage renal disease; N18.6 - End stage renal disease; N18.6 - End stage renal disease ; Z79.4 - ferry terminal supervisor (current) use of insulin; Z79.4 - snf (current) use of insulin; Z79.4 - snf (current) use of insulin; Z79.4 - snf ( current) use of insulin; Z99.2 - Dependence on renal dialysis (9) ICD (implantable cardioverter-defibrillator) in place Code(s): Z95.810 - PRESENCE OF AUTOMATIC (IMPLANTABLE) CARDIAC DEFIBRILLATOR (10) Ischemic dilated cardiomyopathy Code(s): I25.5 - ISCHEMIC CARDIOMYOPATHY
[2017-06-10] MEDS: SEVELAMER CARBONATE 800 MG TAB (FP) PO SCH ×3 (08:27→17:47)
--- NOTE | 2017-06-10 08:35 | EKG ---
Test Reason : Blood Pressure : / mmHG Vent. Rate : 113 BPM Atrial Rate : 105 BPM P-R Int : 000 ms QRS Dur : 156 ms QT Int : 348 ms P-R-T Axes : 000 -88 083 degrees QTc Int : 477 ms ATRIAL FIBRILLATION WITH RAPID VENTRICULAR RESPONSE WITH PREMATURE VENTRICULAR OR ABERRANTLY CONDUCTED COMPLEXES LEFT AXIS DEVIATION RIGHT BUNDLE BRANCH BLOCK ANTEROSEPTAL INFARCT (CITED ON OR BEFORE 21-AUG-2014) ABNORMAL ECG WHEN COMPARED WITH ECG OF 05-JUN-2017 18:40, Confirmed by ANN REYEZ MD ([id number]) on 06/10/2017 8:35:10 AM Referred By: Clayton WERNER Confirmed By:ANN REYEZ MD
[2017-06-10] MEDS: AMIODARONE HCL 200 MG TABLET (FP) PO SCH (10:55)
[2017-06-10] MEDS: SUCRALFATE 1 GM TABLET (FP) PO SCH ×2 (10:55→21:49)
[2017-06-10] MEDS: CEPHALEXIN MONOHYDRATE 500 MG CAPSULE (UD) PO SCH (10:55)
[2017-06-10] MEDS: MINERAL OIL/PET HY-PHL TOPICAL OINTMENT 454 GM JAR TP SCH ×2 (10:55→21:48)
[2017-06-10] MEDS: NEOMYCIN/POLYMYXIN/BACITRACIN (TRIPLE ANTIBIOTIC) 28 GM OINTMENT TP SCH ×2 (10:55→21:49)
[2017-06-10] MEDS: VITAMIN B COMP W-C 1 EA TABLET PO SCH (10:55)
[2017-06-10] MEDS: MIDODRINE HCL 5 MG TABLET PO SCH (10:55)
[2017-06-10] MEDS ORDERED: PT OWN MED DRAWER 7, Y5N ONE (11:02)
[2017-06-10] MEDS: HYDROCORTISONE 2.5% TOPICAL CREAM 30 GM TUBE TP SCH (11:14)
[2017-06-10] MEDS: LACTULOSE 20 GM/30 ML UDC (FOR ORAL USE ONLY) PO SCH ×2 (11:16→21:49)
[2017-06-10] MEDS: ACETAMINOPHEN 325 MG TABLET (FP) PO PRN (12:48)
[2017-06-10] MEDS ORDERED: INSULIN (NOVOLOG) ASPART 100 UNITS/ML 10ML VIAL ONE (19:43)
[2017-06-11] MEDS: oxyCODONE HCL 5 MG TABLET PO PRN ×3 (02:50→18:31)
[2017-06-11] MEDS: ACETAMINOPHEN 325 MG TABLET (FP) PO PRN ×3 (03:00→18:32)
[2017-06-11] MEDS: LEVOTHYROXINE NA 75 MCG TABLET (FP) PO SCH (06:22)
[2017-06-11] MEDS: INSULIN SLIDING SCALE (NOVOLOG) 1 VIAL SQ SCH ×4 (06:22→22:01)
[2017-06-11] MEDS: fentaNYL 25mcg/hr PATCH.TD72 TD SCH ×2 (07:47→08:18)
[2017-06-11] MEDS: SEVELAMER CARBONATE 800 MG TAB (FP) PO SCH ×3 (07:49→17:39)
[2017-06-11] MEDS: MIDODRINE HCL 5 MG TABLET PO SCH ×2 (08:44→11:11)
--- NOTE | 2017-06-11 09:00 | PN ---
Progress Note (short form) - Note Progress Note: RENAL AWAKE ALERT SEEN IN HD CASE D/W PMD IN DEPTH WANTS PIG TAIL OUT ABD DISTENDED BUT SOFT WEIGHT UP UF 2 HR TARGET 2 KG HD 1.5 H K2 TARGET 2 KG EPO 5K REPEAT HD IN AM THEN DC HOME IF OK OVER THE WEEKEND WALKED
--- NOTE | 2017-06-11 09:36 | PN ---
Progress Note (short form) - Note Progress Note: Vital Signs Period Temp Pulse Resp BP Sys/Lopez Pulse Ox Last 24 Hr 97.8 F-98.9 F 100-117 18-20 75-136/40-80 96 S1S2 irreg.irreg.tachy lungs cta ant abd soft distended +BS subcutenous edema persists c/o very severe abdominal pain since pleurex placement, wants it out IMP end stage cardiomyopathy with left and right heart failure cirrhosis ESRD hypotension started fentanyl will ask to remove pleurex since it causes much discomfort to patient, if need be will periodically do paracentesis, but does not have very large amount of fluid reaccumulation at present tolerating less and less HD daily, with persistent edema small wounds, scabs developing due to edema and minimal mobility topical creams pain management dc planning after pleurex removal and HD Problem List - Problems (1) Abdominal pain Code(s): R10.9 - UNSPECIFIED ABDOMINAL PAIN Qualifiers: Abdominal location: generalized Qualified Code(s): R10.84 - Generalized abdominal pain (2) Ascites Code(s): R18.8 - OTHER ASCITES Qualifiers: Ascites type: other type Qualified Code(s): R18.8 - Other ascites (3) Cirrhosis Code(s): K74.60 - UNSPECIFIED CIRRHOSIS OF LIVER Qualifiers: Hepatic cirrhosis type: unspecified hepatic cirrhosis Ascites presence: with ascites Qualified Code(s): K74.60 - Unspecified cirrhosis of liver (4) ESRD (end stage renal disease) Code(s): N18.6 - END STAGE RENAL DISEASE (5) Generalized weakness Code(s): R53.1 - WEAKNESS (6) Atrial fibrillation Code(s): I48.91 - UNSPECIFIED ATRIAL FIBRILLATION Qualifiers: Atrial fibrillation type: persistent Qualified Code(s): I48.1 - Persistent atrial fibrillation (7) Congestive heart failure Code(s): I50.9 - HEART FAILURE, UNSPECIFIED Qualifiers: Congestive heart failure type: combined Congestive heart failure chronicity : chronic Qualified Code(s): I50.42 - Chronic combined systolic (congestive) and diastolic (congestive) heart failure (8) Diabetes mellitus Code(s): E11.9 - TYPE 2 DIABETES MELLITUS WITHOUT COMPLICATIONS Qualifiers: Diabetes mellitus type: type 2 Diabetes mellitus complication status: with kidney complications Diabetes mellitus complication detail: with chronic kidney disease Diabetes mellitus jail insulin use: with jail use Chronic kidney disease stage: on chronic dialysis Qualified Code(s): E11.22 - Type 2 diabetes mellitus with diabetic chronic kidney disease; N18.6 - End stage renal disease; Z99.2 - Dependence on renal dialysis; Z99.2 - Dependence on renal dialysis; Z99.2 - Dependence on renal dialysis; N18.6 - End stage renal disease; N18.6 - End stage renal disease; N18.6 - End stage renal disease ; Z79.4 - alf (current) use of insulin; Z79.4 - long term care social worker (current) use of insulin; Z79.4 - alf (current) use of insulin; Z79.4 - long term care social worker ( current) use of insulin; Z99.2 - Dependence on renal dialysis (9) ICD (implantable cardioverter-defibrillator) in place Code(s): Z95.810 - PRESENCE OF AUTOMATIC (IMPLANTABLE) CARDIAC DEFIBRILLATOR (10) Ischemic dilated cardiomyopathy Code(s): I25.5 - ISCHEMIC CARDIOMYOPATHY
[2017-06-11] MEDS ORDERED: EPOETIN ALFA 10,000 UNIT/1 ML VIAL SQ ONE ×2 (10:00→18:12)
[2017-06-11] MEDS: SUCRALFATE 1 GM TABLET (FP) PO SCH ×2 (11:04→21:54)
[2017-06-11] MEDS: CEPHALEXIN MONOHYDRATE 500 MG CAPSULE (UD) PO SCH (11:04)
[2017-06-11] MEDS: MINERAL OIL/PET HY-PHL TOPICAL OINTMENT 454 GM JAR TP SCH ×2 (11:09→22:51)
[2017-06-11] MEDS: NEOMYCIN/POLYMYXIN/BACITRACIN (TRIPLE ANTIBIOTIC) 28 GM OINTMENT TP SCH ×2 (11:09→22:51)
[2017-06-11] MEDS: LACTULOSE 20 GM/30 ML UDC (FOR ORAL USE ONLY) PO SCH ×2 (11:10→21:54)
[2017-06-11] MEDS: AMIODARONE HCL 200 MG TABLET (FP) PO SCH (11:10)
[2017-06-11] MEDS: VITAMIN B COMP W-C 1 EA TABLET PO SCH (11:10)
[2017-06-11] MEDS: HYDROCORTISONE 2.5% TOPICAL CREAM 30 GM TUBE TP SCH (11:10)
--- NOTE | 2017-06-11 13:32 | EKG ---
Test Reason : Blood Pressure : / mmHG Vent. Rate : 106 BPM Atrial Rate : 096 BPM P-R Int : 000 ms QRS Dur : 160 ms QT Int : 380 ms P-R-T Axes : 000 269 078 degrees QTc Int : 504 ms ATRIAL FIBRILLATION WITH RAPID VENTRICULAR RESPONSE RIGHT BUNDLE BRANCH BLOCK ANTEROLATERAL INFARCT (CITED ON OR BEFORE 21-AUG-2014) ABNORMAL ECG WHEN COMPARED WITH ECG OF 03-JUN-2017 11:33, VENT. RATE HAS INCREASED T WAVE VARIATION Confirmed by BETZY ZHONG MD ([id number]) on 06/11/2017 1:31:50 PM Referred By: Confirmed By:BETZY ZHONG MD
[2017-06-11] MEDS ORDERED: LIDOCAINE HCL 1%, 10 MG/ML (20ML VIAL) ONE (15:06)
[2017-06-11] MEDS ORDERED: HEPARIN NA (PORCINE) 5,000 UNITS/ML 1ML VIAL ONE ×2 (15:07→17:32)
--- NOTE | 2017-06-11 16:54 | CONSULT ---
Consult - History of Present Illness History of Present Illness: 62 year old man with ESRD on HD with AV graft. He has been hospitalized for several weeks, discharged and readmitted. He was found to have a thrombosed AV graft today and scheduled for thrombectomy. Upon arrival in preop he was found to be in rapid Afib with BP 70-80. Dr. Kan felt he was unstable for procedure. 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: Yes: Peripheral Neuropathy Cardio/Vascular: Yes: AFIB, CAD (s/p CABG, PCI/stent), CHF (severe biventricular failure, Medtronic ICD), HTN, Hyperlipdemia, Mitral Insufficiency , Murmur, Pulmonary Hypertension Pulmonary: Yes: COPD, Other (h/o MARIAN in lungs-not treated) Gastrointestinal: Yes: GI Bleed (h/o melena in past), Other (gastritis) Hepatobiliary: Yes: Cirrhosis (felt to be due to right heart failure and GONG ) , Cholelithiasis (s/p lap cholecystectomy) Renal/: Yes: Renal Failure, Hemodialysis Psych: Yes: Anxiety Endocrine: Yes: Diabetes Mellitus, Hypothyroidism - Past Surgical History Past Surgical History: Yes: AICD, AV Fistula/Graft (LUE), CABG, Cholecystectomy , Upper Endoscopy - Alcohol/Substance Use Hx Alcohol Use: No History of Substance Use: reports: None - Smoking History Smoking history: Never smoked Have you smoked in the past 12 months: No Aproximately how many cigarettes per day: 0 - Social History Usual Living Arrangement: With Spouse ADL: Independent 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 History of Recent Travel: No Home Medications - Allergies Allergies/Adverse Reactions: Allergies Allergy/AdvReac Type Severity Reaction Status Date / Time No Known Drug Allergies Allergy Verified 06/05/17 18:30 - Home Medications Home Medications: Ambulatory Orders Sucralfate [Carafate -] 1 gm PO BID 12/19/16 Levothyroxine [Synthroid -] 75 mcg PO DAILY@0700 tablet 12/24/16 Midodrine HCl [Proamatine -] 10 mg PO DAILY tablet 12/24/16 Sodium Polystyrene Sulfonate [Kayexalate -] 15 gm PO Q2D #1 bottle 01/25/17 Polyethylene Glycol 3350 [Miralax 255 gm Btl -] 17 gm PO DAILY #1 bottle Insulin Glargine,Hum.rec.anlog [Lantus (10mL VIAL) -] 15 units SQ DAILY Amiodarone HCl [Cordarone -] 100 mg PO DAILY 05/01/17 Sevelamer HCl [Renagel] 800 mg PO TID 05/01/17 Lactulose (Oral Use) [Cephulac -] 20 gm PO DAILY #1 bottle 05/09/17 Vitamin B Comp W-C [Nephro-Adablerto -] 1 tablet PO DAILY #30 tablet 06/01/17 Ondansetron [Zofran -] 4 mg PO Q12H PRN #10 tablet 06/04/17 Oxycodone HCl/Acetaminophen [Percocet 10-325 mg Tablet] 1 each PO TID PRN #30 tablet MDD 3 06/04/17 Family Disease History - Family Disease History Family Disease History: Other: Father (lived to 85- natural cause), Mother ( lived to 71- natural cause) Physical Exam Vital Signs: Vital Signs Temperature 98.2 F 06/11/17 13:01 Pulse Rate 117 H 06/11/17 13:01 Respiratory Rate 18 06/11/17 13:01 Blood Pressure 83/53 06/11/17 13:01 O2 Sat by Pulse Oximetry (%) 98 06/11/17 08:20 Constitutional: Yes: No Distress (Right arm graft with no pulse.) Labs: CBC, BMP 06/07/17 12:27 06/07/17 12:27 Problem List - Problems (1) Clotted renal dialysis AV graft Assessment/Plan: Will need thrombectomy when stable. Femoral Shiley for temporary access will be done. Code(s): T82.868A - THROMBOSIS DUE TO VASCULAR PROSTH DEV/GRFT, INIT Qualifiers: Encounter type: initial encounter Qualified Code(s): T82.868A - Thrombosis due to vascular prosthetic devices, implants and grafts, initial encounter (2) ESRD (end stage renal disease) Code(s): N18.6 - END STAGE RENAL DISEASE
--- NOTE | 2017-06-11 17:53 | PROC ---
Central Line Insertion Indication: Other (Dialysis access) Risks and Benefits Explained: Yes Consent on Chart: Yes Central Line: Dialysis Cath, Dual Lumen Anesthesia: 1% Lidocaine Sterile Technique: Yes Ultrasound Guided Assistance: No Position: Right Femoral Sterile Dressing Applied: Yes
[2017-06-11] MEDS ORDERED: FENTANYL PATCH WASTE MC PRN (18:12)
[2017-06-11] MEDS ORDERED: FENTANYL PATCH WASTE TD PRN (18:12)
[2017-06-11] MEDS ORDERED: ONDANSETRON 4 MG TABLET PO PRN (18:12)
[2017-06-11] MEDS ORDERED: INSULIN (NOVOLOG) ASPART 100 UNITS/ML 10ML VIAL ONE ×2 (18:28→22:00)
[2017-06-11] MEDS ORDERED: PT OWN MED DRAWER 7, Y5N ONE (18:44)
[2017-06-11 19:23] LABS: HEMATOCRIT 31.2 % (35.4-49); HEMOGLOBIN 9.3 GM/dL (11.7-16.9); MCH 27.2 pg (25.7-33.7); MEAN CELL VOLUME 90.6 fl (80-96); MEAN PLT VOLUME 9.8 fl (7.5-11.1); PLATELET COUNT 116 K/MM3 (134-434); RBC 3.44 M/mm3 (4.00-5.60); RDW 21.1 % (11.9-15.9); WHITE BLOOD COUNT 8.8 K/mm3 (4.0-10.0)
[2017-06-11 20:28] LABS: ANION GAP 17 (8-16); BLOOD UREA NITROGEN 85 mg/dL (7-18); CALCIUM 8.1 mg/dL (8.5-10.1); CHLORIDE 90 mmol/L (98-107); CO2 24 mmol/L (21-32); GLUCOSE,RANDOM 189 mg/dL (74-106); PHOSPHOROUS 7.4 mg/dL (2.5-4.9); POTASSIUM 5.2 mmol/L (3.5-5.1); SODIUM 131 mmol/L (136-145)
[2017-06-11 20:37] LABS: CREATININE 9.6 mg/dL (0.7-1.3)
[2017-06-11] MEDS ORDERED: oxyCODONE HCL 5 MG TABLET PO ONE (21:45)
[2017-06-12] MEDS: oxyCODONE HCL 5 MG TABLET PO PRN ×4 (02:19→21:37)
[2017-06-12] MEDS: ACETAMINOPHEN 325 MG TABLET (FP) PO PRN ×3 (02:19→21:38)
[2017-06-12] MEDS: LEVOTHYROXINE NA 75 MCG TABLET (FP) PO SCH (06:17)
[2017-06-12] MEDS: INSULIN SLIDING SCALE (NOVOLOG) 1 VIAL SQ SCH ×2 (06:17→12:00)
--- NOTE | 2017-06-12 07:28 | SPA.PREOP ---
- PRE-OP NOTE Dx: ESRD pn HD, clotted AVG Planned Procedure: Thrombectomy of fistula Surgeon: Silvestre Steiner Consent: To be obtained by surgeon after all risks, benefits and alternatives explained to patient and or health care proxy. Last Vital Signs Temp Pulse Resp BP Pulse Ox 97.6 F 112 H 20 78/40 98 06/12/17 06:00 06/12/17 06:00 06/12/17 06:00 06/12/17 06:00 06/11/17 21:00 Lab Results WBC 8.8 K/mm3 (4.0-10.0) 06/11/17 18:00 RBC 3.44 M/mm3 (4.00-5.60) L 06/11/17 18:00 Hgb 9.3 GM/dL (11.7-16.9) L 06/11/17 18:00 Hct 31.2 % (35.4-49) L 06/11/17 18:00 MCV 90.6 fl (80-96) 06/11/17 18:00 MCHC 30.0 g/dl (32.0-35.9) L 06/11/17 18:00 RDW 21.1 % (11.9-15.9) H 06/11/17 18:00 Plt Count 116 K/MM3 (134-434) L D 06/11/17 18:00 Sodium 131 mmol/L (136-145) L 06/11/17 18:00 Potassium 5.2 mmol/L (3.5-5.1) H D 06/11/17 18:00 Chloride 90 mmol/L (98-107) L 06/11/17 18:00 Carbon Dioxide 24 mmol/L (21-32) 06/11/17 18:00 Anion Gap 17 (8-16) H 06/11/17 18:00 BUN 85 mg/dL (7-18) H D 06/11/17 18:00 Creatinine 9.6 mg/dL (0.7-1.3) H* D 06/11/17 18:00 Random Glucose 189 mg/dL (74-106) H 06/11/17 18:00 Calcium 8.1 mg/dL (8.5-10.1) L 06/11/17 18:00 Blood Type AB POSITIVE 06/11/17 18:00 Antibody Screen Negative 06/11/17 18:00 INR 1.14 (0.82-1.09) 06/05/17 21:07 - ASSESSMENT/PLAN Problem List - Problems (1) Clotted renal dialysis AV graft Assessment/Plan: 1. Make NPO after midnight except po meds 2. GI/DVT PPX 3. Medical optimization / clearance Code(s): T82.868A - THROMBOSIS DUE TO VASCULAR PROSTH DEV/GRFT, INIT Qualifiers: Encounter type: initial encounter Qualified Code(s): T82.868A - Thrombosis due to vascular prosthetic devices, implants and grafts, initial encounter Visit type - Case Type Case Type: ED Admission - New patient This patient is new to me today: Yes Date on this admission: 06/12/17
--- NOTE | 2017-06-12 08:50 | PN ---
Progress Note (short form) - Note Progress Note: Chief Complaint: Events noted, notes reviewed, denies any chest pain but reports dyspnea and increasing abdominal girth History of Present Illness: Seen and examined on telemetry. Full consult dictated Echocardiography dated 05/28/17 revealed LV systolic function moderate/severely reduced, severely dilated RV with Moderate to severe reduction in RV systolic function, left atrium dilatation; mild to moderate mitral annular calcification , mild mitral regurgitaion, moderate tricuspid regurgitation, RV systolic pressure Measured at 24.8 mmHg; mild aortic sclerosis. Echocardiography dated 04/28/16 revealed LV systolic function moderate/severely reduced, akinesis of basal and mid kandy-septum, apical anterior and apical inferior mustafa; left atrium moderately dilated; mild to moderate mitral annular calcification, mild mitral regurgitaion, moderate tricuspid regurgitation, RV systolic pressure elevated; mild aortic sclerosis. Medications: Current Medications Acetaminophen (Tylenol -) 325 mg PO QID PRN PRN Reason: PAIN Last Admin: 06/12/17 15:21 Dose: 325 mg Amiodarone HCl (Cordarone -) 100 mg PO DAILY [facility] Last Admin: 06/12/17 11:13 Dose: Not Given Cephalexin HCl (Keflex -) 500 mg PO DAILY [facility] Last Admin: 06/12/17 09:09 Dose: 500 mg Diphenhydramine HCl (Benadryl Injection -) 12.5 mg IVPUSH Q4H PRN PRN Reason: FOR ITCHING Last Admin: 06/12/17 14:00 Dose: 12.5 mg Emollient Ointment (Aquaphor -) 1 applic TP BID [facility] Last Admin: 06/12/17 09:10 Dose: 1 applic Fentanyl (Duragesic 25mcg Patch -) 1 patch TD Q3D [facility] Hydrocortisone (Anusol 2.5% Hc Cream -) 1 applic TP DAILY [facility] Last Admin: 06/12/17 09:10 Dose: 1 applic Insulin Aspart (Novolog Vial Sliding Scale -) 1 vial SQ ACHS [facility] PRN Reason: Protocol Last Admin: 06/12/17 12:00 Dose: Not Given Lactulose (Cephulac (Oral Use)) 20 gm PO BID [facility] Last Admin: 06/12/17 09:19 Dose: 20 gm Levothyroxine Sodium (Synthroid -) 75 mcg PO DAILY@0700 [facility] Last Admin: 06/12/17 06:17 Dose: 75 mcg Midodrine (Proamatine -) 10 mg PO BID-MID [facility] Last Admin: 06/12/17 11:13 Dose: Not Given Miscellaneous (Duragesic Patch Waste) 1 each TD PRN PRN PRN Reason: PAIN Multivit/Ca Carb/B Cmplx/FA/Prenat (Nephro-Adalberto -) 1 tablet PO DAILY [facility] Last Admin: 06/12/17 09:09 Dose: 1 tablet Neomycin/Polymyxin/Bacitracin (Neosporin Topical Ointment -) 1 applic TP BID [facility] Last Admin: 06/12/17 09:19 Dose: 1 applic Ondansetron HCl (Zofran -) 4 mg PO BID PRN Oxycodone HCl (Roxicodone -) 10 mg PO QID PRN PRN Reason: PAIN Last Admin: 06/12/17 15:20 Dose: 10 mg Sevelamer Carbonate (Renvela -) 800 mg PO TIDCM [facility] Last Admin: 06/12/17 11:57 Dose: 800 mg Sodium Polystyrene Sulfonate (Kayexalate -) 15 gm PO MoWeFr@1000 [facility] Sucralfate (Carafate -) 1 gm PO BID [facility] Last Admin: 06/12/17 09:10 Dose: 1 gm Review of Systems Cardiovascular: As noted above Respiratory: denies: Cough or Sputum Production Gastrointestinal: denies: Nausea, Vomiting, Diarrhea, Constipation or Abdominal Pain Musculoskeletal: No Symptoms Reported Endocrine: DM Vital Signs: Last Vital Signs Temp Pulse Resp BP Pulse Ox 98.7 F 120 H 20 127/63 98 06/12/17 14:40 06/12/17 14:40 06/12/17 14:40 06/12/17 14:40 06/12/17 10:00 Intake & Output 06/09/17 06/10/17 06/11/17 06/12/17 23:59 23:59 23:59 23:59 Intake Total 1140 1150 510 270 Balance 1140 1150 510 270 Weight 169 lb 165 lb 8 oz Constitutional: No Distress, Calm, Thin Neck: Supple Positive JVD No bruit Respiratory: Diminished Breath Sounds at the Bases Cardiovascular: S1 S2 irregularly irregular Grade 2/6 SM Gastrointestinal: Soft Benign Distended Normal Bowel Sounds Ascites Ext: Edema Labs: CBC, BMP 06/11/17 18:00 06/11/17 18:00 INR, PTT INR 1.14 (0.82-1.09) 06/05/17 21:07 Assessment/Plan ASSESSMENT: 1. Thrombosed AV graft for thrombectomy/revision 2. Recurrent hypotension precluding the above-noted procedure 3. CAD post PR/PCI(stent)/CABG, angina pectoris with history of demand ischemic injury 4. Ischemic dilated cardiomyopathy 5. Paroxysmal atrial fibrillation, [id number] score of 4, recurrent arrhythmia currently on no anticoagulation therapy 6. History of syncope referable to sustained VT/VF 7. Post Medtronic's ICD implant 8. HTN history currently hypotensive on Midodrine therapy 9. DM 10. Hypothyroidism 11. ESRD on HD 12. Anemia and Thrombocytopenia PLAN: 1. Ideally should be on Carvedilol and ACEI or ARBS therapies, but limitation is persistent symptomatic hypotension 2. Continue Amiodarone 3. Recommend resumption of Coumadin therapy as per INR with caution unless it is absolutely contraindicated, as an alternative to anticoagulation left atrial appendage closure device implant 4. Continue Midodrine and further titrated dosage as needed to 10 mg 3 times daily 5. HD as per renal service 6. Consideration for repeat paracentesis for management of the above-noted ascites Jocelyn Hay M.D.
[2017-06-12] MEDS: CEPHALEXIN MONOHYDRATE 500 MG CAPSULE (UD) PO SCH (09:09)
[2017-06-12] MEDS: VITAMIN B COMP W-C 1 EA TABLET PO SCH (09:09)
[2017-06-12] MEDS: SEVELAMER CARBONATE 800 MG TAB (FP) PO SCH ×3 (09:09→17:02)
[2017-06-12] MEDS: MINERAL OIL/PET HY-PHL TOPICAL OINTMENT 454 GM JAR TP SCH ×2 (09:10→21:49)
[2017-06-12] MEDS: SUCRALFATE 1 GM TABLET (FP) PO SCH ×2 (09:10→21:40)
[2017-06-12] MEDS: HYDROCORTISONE 2.5% TOPICAL CREAM 30 GM TUBE TP SCH (09:10)
[2017-06-12] MEDS ORDERED: PT OWN MED DRAWER 7, Y5N ONE (09:15)
[2017-06-12] MEDS: NEOMYCIN/POLYMYXIN/BACITRACIN (TRIPLE ANTIBIOTIC) 28 GM OINTMENT TP SCH ×2 (09:19→21:50)
[2017-06-12] MEDS: LACTULOSE 20 GM/30 ML UDC (FOR ORAL USE ONLY) PO SCH ×2 (09:19→21:40)
--- NOTE | 2017-06-12 09:54 | PN ---
Progress Note (short form) - Note Progress Note: CBC, BMP 06/11/17 18:00 06/11/17 18:00 Vital Signs Period Temp Pulse Resp BP Sys/Lopez Pulse Ox Last 24 Hr 97.4 F-98.9 F 34-133 18-20 76-161/40-97 98 S1S2 tachy lungs cta ant abd soft distended +BS subcutenous edema persists pleurex removed abdominal excoriations IMP end stage cardiomyopathy with left and right heart failure cirrhosis ESRD hypotension paroxysmal afib fistula clotted yesterday-was unable to declot, due to low bp, tachycardia temporary catheter in right groid, was HD last night 3.5 kg was seen by cardiology today, consult appreciated, will increase midodrine dose , but pt is asymptomatic ambualtory as he has been with low systolic bps plan npo past breakfast tomorrow, declot in pm the hd and dc planning if all goes as planned Problem List - Problems (1) Abdominal pain Code(s): R10.9 - UNSPECIFIED ABDOMINAL PAIN Qualifiers: Abdominal location: generalized Qualified Code(s): R10.84 - Generalized abdominal pain (2) Ascites Code(s): R18.8 - OTHER ASCITES Qualifiers: Ascites type: other type Qualified Code(s): R18.8 - Other ascites (3) Cirrhosis Code(s): K74.60 - UNSPECIFIED CIRRHOSIS OF LIVER Qualifiers: Hepatic cirrhosis type: unspecified hepatic cirrhosis Ascites presence: with ascites Qualified Code(s): K74.60 - Unspecified cirrhosis of liver (4) ESRD (end stage renal disease) Code(s): N18.6 - END STAGE RENAL DISEASE (5) Generalized weakness Code(s): R53.1 - WEAKNESS (6) Atrial fibrillation Code(s): I48.91 - UNSPECIFIED ATRIAL FIBRILLATION Qualifiers: Atrial fibrillation type: persistent Qualified Code(s): I48.1 - Persistent atrial fibrillation (7) Congestive heart failure Code(s): I50.9 - HEART FAILURE, UNSPECIFIED Qualifiers: Congestive heart failure type: combined Congestive heart failure chronicity : chronic Qualified Code(s): I50.42 - Chronic combined systolic (congestive) and diastolic (congestive) heart failure (8) Diabetes mellitus Code(s): E11.9 - TYPE 2 DIABETES MELLITUS WITHOUT COMPLICATIONS Qualifiers: Diabetes mellitus type: type 2 Diabetes mellitus complication status: with kidney complications Diabetes mellitus complication detail: with chronic kidney disease Diabetes mellitus group home insulin use: with joint terminal attack controller use Chronic kidney disease stage: on chronic dialysis Qualified Code(s): E11.22 - Type 2 diabetes mellitus with diabetic chronic kidney disease; N18.6 - End stage renal disease; N18.6 - End stage renal disease; N18.6 - End stage renal disease; N18.6 - End stage renal disease; Z79.4 - long term care administrator (current) use of insulin; Z79.4 - half-way (current) use of insulin; Z79.4 - long term care administrator (current ) use of insulin; Z79.4 - long term care administrator (current) use of insulin; Z99.2 - Dependence on renal dialysis; Z99.2 - Dependence on renal dialysis; Z99.2 - Dependence on renal dialysis; Z99.2 - Dependence on renal dialysis (9) ICD (implantable cardioverter-defibrillator) in place Code(s): Z95.810 - PRESENCE OF AUTOMATIC (IMPLANTABLE) CARDIAC DEFIBRILLATOR (10) Ischemic dilated cardiomyopathy Code(s): I25.5 - ISCHEMIC CARDIOMYOPATHY
[2017-06-12] MEDS ORDERED: MIDODRINE HCL 5 MG TABLET PO SCH (10:00)
[2017-06-12] MEDS ORDERED: AMIODARONE HCL 200 MG TABLET (FP) PO SCH (10:00)
[2017-06-12] MEDS: MIDODRINE HCL 5 MG TABLET PO SCH ×2 (11:13→21:51)
[2017-06-12] MEDS: AMIODARONE HCL 200 MG TABLET (FP) PO SCH ×2 (11:13→17:02)
--- NOTE | 2017-06-12 20:01 | CONS ---
DATE OF CONSULTATION: 06/12/2017 REQUESTING PHYSICIAN: Cecilia Teran MD CHIEF COMPLAINT: Cardiovascular evaluation in a patient with known history of coronary artery disease, hypotension, increasing abdominal girth. HISTORY OF PRESENT ILLNESS: A 62-year-old male of [place] with known history of coronary artery disease status post percutaneous coronary intervention, stenting, status post coronary artery bypass grafting; angina pectoris; systolic left ventricular dysfunction related to ischemic dilated cardiomyopathy with chronic class II [place] [employer] classification left ventricular failure; right ventricular failure; post prophylactic ICD implantation, Medtronic device; hypertensive cardiovascular disease, currently hypotensive on midodrine therapy; diabetes mellitus; hypercholesterolemia; chronic obstructive pulmonary disease; end-stage renal disease on hemodialysis; who was admitted to [facility] with an occluded right upper extremity AV graft for purpose of thrombectomy, graft revision. Patient had been complaining of increasing dyspnea and, in addition, increasing abdominal girth. Upon attempting to perform the above-noted procedure, patient was noted to be hypotensive. In view of which, the above-noted procedure was aborted. Patient denies any chest discomfort. Patient denies any orthopnea or paroxysmal nocturnal dyspnea. Patient reports intermittent bilateral lower extremity edema that worsens in the latter part of the day. Patient denies any palpitations. Patient denies any dizziness, lightheadedness, or syncope. PAST MEDICAL HISTORY: Coronary artery disease status post percutaneous coronary intervention, stenting, status post coronary artery bypass grafting; angina pectoris; systolic left ventricular dysfunction related to dilated ischemic cardiomyopathy with chronic class II [place] [employer] classification left ventricular failure; post prophylactic ICD implantation, Medtronic device; hypertensive cardiovascular disease, currently hypotensive; diabetes mellitus; hypercholesterolemia; chronic obstructive pulmonary disease; end-stage renal disease on hemodialysis; and chronic liver disease. SOCIAL HISTORY: Denies tobacco abuse or alcohol intake. FAMILY HISTORY: Positive for coronary artery disease. ALLERGIES: None reported. MEDICAL THERAPY: Currently includes acetaminophen 325 mg 4 times a day as needed; amiodarone 100 mg once a day; Keflex 500 mg once a day; Benadryl injection 12.5 mg every 4 hours as needed; Aquaphor applied as needed; Duragesic patch 1 patch every 72 hours; Anusol cream as prescribed; insulin coverage; levothyroxine 75 mcg once a day for hypothyroidism; midodrine 10 mg twice a day; Duragesic patch as needed; Renvela 800 mg 3 times a day; Kayexalate 15 g Mondays, Wednesdays, and Fridays; Carafate 1 g twice a day. REVIEW OF SYSTEMS: Head and Neck: Denies headache, photophobia, blurring of vision. Respiratory: No cough or sputum production. Cardiovascular: As noted above. Gastrointestinal: Denies nausea and vomiting but reports increasing abdominal girth. Genitourinary: On hemodialysis. Musculoskeletal: No symptoms reported. PHYSICAL EXAMINATION: Vital Signs: Blood pressure is 127/63 mmHg. Pulse rate is 120 beats per minute. Temperature 98.7. Head and Neck: Pupils equal and reactive to light and accommodation. Extraocular muscles are intact. Anicteric sclerae. Positive JVD. No bruit appreciated. Chest: Diminished breath sounds at the bases bilaterally. Cardiovascular: S1, S2. Irregularly irregular. Grade 2/6 systolic ejection murmur. Abdomen: Distended. Ascites. Soft, benign. Normoactive bowel sounds. Extremities: Edema 1+. Electrocardiogram reveals atrial fibrillation with rapid ventricular response and premature ventricular contractions with left axis deviation, right bundle branch block. CBC revealed white cell count of 8.8, hemoglobin 9.3, platelet count 116. Basic metabolic profile revealed a sodium 131, potassium 5.2, BUN 85, creatinine 9.6, glucose 189. ASSESSMENT: 1. Thrombosed arteriovenous graft for thrombectomy/revision. 2. Recurrent hypotension precluding the above-noted procedure. 3. Coronary artery disease, post myocardial infarction, post percutaneous coronary intervention and stenting, post coronary artery bypass grafting, angina pectoris with prior history of demand ischemic injury. 4. Systolic left ventricular dysfunction related to ischemic dilated cardiomyopathy with chronic class II [place] [employer] classification left ventricular failure. 5. Paroxysmal atrial fibrillation, CHADS2-VASc score of 4 with recurrent arrhythmia, currently on no anticoagulation therapy. 6. History of syncope referable to sustained ventricular tachycardia, ventricular fibrillation. 7. Post prophylactic Medtronic implantable cardioverter-defibrillator implant. 8. History of hypertension cardiovascular disease, currently hypotensive on midodrine therapy. 9. Diabetes mellitus. 10. Hypothyroidism. 11. End-stage renal disease on hemodialysis. 12. Anemia. 13. Thrombocytopenia. PLAN: 1. Ideally, patient should be on carvedilol and SILVIA inhibitor or angiotensin receptor mateus therapy but limitation is persistent symptomatic hypotension. 2. Continue amiodarone. 3. Recommend resumption of Coumadin therapy as per INR with caution unless it is absolutely contraindicated as an alternative to anticoagulation. Left atrial appendage closure device implant is recommended. 4. Continue midodrine and further titration of dosage as needed to 10 mg 3 times daily. 5. Hemodialysis as per renal service. 6. Consideration for repeat paracentesis for management of the above-noted persistent accumulating ascites. Thank you for the kind referral. MIGUEL VALDIVIA M.D. [id number]
[2017-06-13] MEDS: INSULIN SLIDING SCALE (NOVOLOG) 1 VIAL SQ SCH ×6 (00:20→23:39)
[2017-06-13] MEDS: oxyCODONE HCL 5 MG TABLET PO PRN ×5 (03:47→23:38)
[2017-06-13] MEDS: ACETAMINOPHEN 325 MG TABLET (FP) PO PRN (03:48)
[2017-06-13] MEDS: LEVOTHYROXINE NA 75 MCG TABLET (FP) PO SCH (06:17)
[2017-06-13] MEDS: SEVELAMER CARBONATE 800 MG TAB (FP) PO SCH ×3 (09:17→17:44)
[2017-06-13] MEDS: MINERAL OIL/PET HY-PHL TOPICAL OINTMENT 454 GM JAR TP SCH ×2 (09:18→22:50)
[2017-06-13] MEDS: HYDROCORTISONE 2.5% TOPICAL CREAM 30 GM TUBE TP SCH (09:18)
[2017-06-13] MEDS: SUCRALFATE 1 GM TABLET (FP) PO SCH ×3 (09:18→23:51)
[2017-06-13] MEDS: AMIODARONE HCL 200 MG TABLET (FP) PO SCH (09:19)
[2017-06-13] MEDS: LACTULOSE 20 GM/30 ML UDC (FOR ORAL USE ONLY) PO SCH ×3 (09:19→23:40)
[2017-06-13] MEDS: VITAMIN B COMP W-C 1 EA TABLET PO SCH ×2 (09:19→13:19)
[2017-06-13] MEDS: SODIUM POLYSTYRENE SULFONATE 15 GM/60 ML BOTTLE PO SCH ×2 (09:19→13:19)
[2017-06-13] MEDS: NEOMYCIN/POLYMYXIN/BACITRACIN (TRIPLE ANTIBIOTIC) 28 GM OINTMENT TP SCH ×2 (09:19→23:51)
[2017-06-13] MEDS: CEPHALEXIN MONOHYDRATE 500 MG CAPSULE (UD) PO SCH ×2 (09:19→13:19)
[2017-06-13] MEDS: MIDODRINE HCL 5 MG TABLET PO SCH ×3 (09:20→17:45)
--- NOTE | 2017-06-13 09:33 | PN ---
Progress Note (short form) - Note Progress Note: Period Temp Pulse Resp BP Sys/Lopez Pulse Ox Last 24 Hr 97.6 F-98.9 F 91-137 20-20 70-159/52-111 98-98 abd soft distended +BS subcutenous edema persists pleurex removed abdominal excoriations weeping blisters on bilateral lower ext. IMP end stage cardiomyopathy with left and right heart failure cirrhosis ESRD hypotension paroxysmal afib IDDM fistula clotted awaiting declotting this afternoon HD today increase oxycodone frequency Problem List - Problems (1) Abdominal pain Code(s): R10.9 - UNSPECIFIED ABDOMINAL PAIN Qualifiers: Abdominal location: generalized Qualified Code(s): R10.84 - Generalized abdominal pain (2) Ascites Code(s): R18.8 - OTHER ASCITES Qualifiers: Ascites type: other type Qualified Code(s): R18.8 - Other ascites (3) Cirrhosis Code(s): K74.60 - UNSPECIFIED CIRRHOSIS OF LIVER Qualifiers: Hepatic cirrhosis type: unspecified hepatic cirrhosis Ascites presence: with ascites Qualified Code(s): K74.60 - Unspecified cirrhosis of liver (4) ESRD (end stage renal disease) Code(s): N18.6 - END STAGE RENAL DISEASE (5) Generalized weakness Code(s): R53.1 - WEAKNESS (6) Atrial fibrillation Code(s): I48.91 - UNSPECIFIED ATRIAL FIBRILLATION Qualifiers: Atrial fibrillation type: persistent Qualified Code(s): I48.1 - Persistent atrial fibrillation (7) Congestive heart failure Code(s): I50.9 - HEART FAILURE, UNSPECIFIED Qualifiers: Congestive heart failure type: combined Congestive heart failure chronicity : chronic Qualified Code(s): I50.42 - Chronic combined systolic (congestive) and diastolic (congestive) heart failure (8) Diabetes mellitus Code(s): E11.9 - TYPE 2 DIABETES MELLITUS WITHOUT COMPLICATIONS Qualifiers: Diabetes mellitus type: type 2 Diabetes mellitus complication status: with kidney complications Diabetes mellitus complication detail: with chronic kidney disease Diabetes mellitus bed bug exterminator insulin use: with bed bug exterminator use Chronic kidney disease stage: on chronic dialysis Qualified Code(s): E11.22 - Type 2 diabetes mellitus with diabetic chronic kidney disease; N18.6 - End stage renal disease; N18.6 - End stage renal disease; N18.6 - End stage renal disease; N18.6 - End stage renal disease; Z79.4 - alf (current) use of insulin; Z79.4 - terminal press operator (current) use of insulin; Z79.4 - alf (current ) use of insulin; Z79.4 - terminal press operator (current) use of insulin; Z99.2 - Dependence on renal dialysis; Z99.2 - Dependence on renal dialysis; Z99.2 - Dependence on renal dialysis; Z99.2 - Dependence on renal dialysis (9) ICD (implantable cardioverter-defibrillator) in place Code(s): Z95.810 - PRESENCE OF AUTOMATIC (IMPLANTABLE) CARDIAC DEFIBRILLATOR (10) Ischemic dilated cardiomyopathy Code(s): I25.5 - ISCHEMIC CARDIOMYOPATHY
--- NOTE | 2017-06-13 09:37 | PN ---
Progress Note (short form) - Note Progress Note: RENAL all notes reviewed Clotted access on sunday In the evening got HD via a rt groin nery as BP was too low to go to the OR Midodrine raised to 10 bid Pig tail out abd soft Ext 2+ edema Seen at hd UF for 1 hr target 2 kg HD 2 hr k2 target 1.5 kg For declot this evening Plan to DC home post repeat HD case d/w pmd labs noted
--- NOTE | 2017-06-13 09:47 | PN ---
Progress Note, Physician History of Present Illness: Undergoing HD via groin access, hypotension limiting HD, reports abd bloating. - Current Medication List Current Medications: Active Medications Acetaminophen (Tylenol -) 325 mg PO QID PRN PRN Reason: PAIN Last Admin: 06/13/17 03:48 Dose: 325 mg Amiodarone HCl (Cordarone -) 100 mg PO DAILY [facility] Last Admin: 06/13/17 09:19 Dose: Not Given Cephalexin HCl (Keflex -) 500 mg PO DAILY [facility] Last Admin: 06/13/17 09:19 Dose: Not Given Diphenhydramine HCl (Benadryl Injection -) 12.5 mg IVPUSH Q4H PRN PRN Reason: FOR ITCHING Last Admin: 06/12/17 21:46 Dose: 12.5 mg Emollient Ointment (Aquaphor -) 1 applic TP BID [facility] Last Admin: 06/13/17 09:18 Dose: 1 applic Fentanyl (Duragesic 25mcg Patch -) 1 patch TD Q3D [facility] Hydrocortisone (Anusol 2.5% Hc Cream -) 1 applic TP DAILY [facility] Last Admin: 06/13/17 09:18 Dose: 1 applic Insulin Aspart (Novolog Vial Sliding Scale -) 1 vial SQ ACHS [facility] PRN Reason: Protocol Last Admin: 06/13/17 09:36 Dose: Not Given Lactulose (Cephulac (Oral Use)) 20 gm PO BID [facility] Last Admin: 06/13/17 09:19 Dose: Not Given Levothyroxine Sodium (Synthroid -) 75 mcg PO DAILY@0700 [facility] Last Admin: 06/13/17 06:17 Dose: 75 mcg Midodrine (Proamatine -) 10 mg PO BID-MID [facility] Last Admin: 06/13/17 09:34 Dose: 10 mg Miscellaneous (Duragesic Patch Waste) 1 each TD PRN PRN PRN Reason: PAIN Multivit/Ca Carb/B Cmplx/FA/Prenat (Nephro-Adalberto -) 1 tablet PO DAILY [facility] Last Admin: 06/13/17 09:19 Dose: Not Given Neomycin/Polymyxin/Bacitracin (Neosporin Topical Ointment -) 1 applic TP BID [facility] Last Admin: 06/13/17 09:19 Dose: 1 applic Ondansetron HCl (Zofran -) 4 mg PO BID PRN Oxycodone HCl (Roxicodone -) 10 mg PO Q4H PRN PRN Reason: PAIN Last Admin: 06/13/17 09:35 Dose: 10 mg Sevelamer Carbonate (Renvela -) 800 mg PO TIDCM [facility] Last Admin: 06/13/17 09:17 Dose: Not Given Sodium Polystyrene Sulfonate (Kayexalate -) 15 gm PO MoWeFr@1000 [facility] Last Admin: 06/13/17 09:19 Dose: Not Given Sucralfate (Carafate -) 1 gm PO BID [facility] Last Admin: 06/13/17 09:18 Dose: Not Given - Objective Vital Signs: Vital Signs Temperature 97.6 F 06/13/17 05:40 Pulse Rate 92 H 06/13/17 05:40 Respiratory Rate 20 06/13/17 05:40 Blood Pressure 122/56 06/13/17 05:40 O2 Sat by Pulse Oximetry (%) 98 06/12/17 20:06 Constitutional: Yes: No Distress, Calm, Thin Neck: Yes: Supple Cardiovascular: Yes: Pulse Irregular Respiratory: Yes: Regular, Diminished Gastrointestinal: Yes: Normal Bowel Sounds, Soft, Distention Edema: Yes Edema: LLE: Trace, RLE: Trace Labs: CBC, BMP 06/11/17 18:00 06/11/17 18:00 INR, PTT INR 1.14 (0.82-1.09) 06/05/17 21:07 - ....Imaging EKG: Report Reviewed (Tele: [facility]) Problem List - Problems (1) Ascites Code(s): R18.8 - OTHER ASCITES Qualifiers: Ascites type: other type Qualified Code(s): R18.8 - Other ascites (2) Cirrhosis Code(s): K74.60 - UNSPECIFIED CIRRHOSIS OF LIVER Qualifiers: Hepatic cirrhosis type: unspecified hepatic cirrhosis Ascites presence: with ascites Qualified Code(s): K74.60 - Unspecified cirrhosis of liver (3) Clotted renal dialysis AV graft Code(s): T82.868A - THROMBOSIS DUE TO VASCULAR PROSTH DEV/GRFT, INIT Qualifiers: Encounter type: initial encounter Qualified Code(s): T82.868A - Thrombosis due to vascular prosthetic devices, implants and grafts, initial encounter (4) ESRD (end stage renal disease) Code(s): N18.6 - END STAGE RENAL DISEASE (5) Anemia Code(s): D64.9 - ANEMIA, UNSPECIFIED Qualifiers: Anemia type: due to chronic kidney disease Chronic kidney disease stage: on chronic dialysis Qualified Code(s): N18.6 - End stage renal disease (6) Atrial fibrillation Code(s): I48.91 - UNSPECIFIED ATRIAL FIBRILLATION Qualifiers: Atrial fibrillation type: persistent Qualified Code(s): I48.1 - Persistent atrial fibrillation (7) Coronary artery disease Code(s): I25.10 - ATHSCL HEART DISEASE OF [place] CORONARY ARTERY W/O ANG PCTRS Qualifiers: Coronary Disease-Associated Artery/Lesion type: [place] artery [place] vs. transplanted heart: [place] heart Associated angina: without angina Qualified Code(s): I25.10 - Atherosclerotic heart disease of [place] coronary artery without angina pectoris (8) Hypothyroidism Code(s): E03.9 - HYPOTHYROIDISM, UNSPECIFIED Qualifiers: Hypothyroidism type: acquired Qualified Code(s): E03.9 - Hypothyroidism, unspecified (9) ICD (implantable cardioverter-defibrillator) in place Code(s): Z95.810 - PRESENCE OF AUTOMATIC (IMPLANTABLE) CARDIAC DEFIBRILLATOR (10) Ischemic dilated cardiomyopathy Code(s): I25.5 - ISCHEMIC CARDIOMYOPATHY (11) S/P CABG (coronary artery bypass graft) Code(s): Z95.1 - PRESENCE OF AORTOCORONARY BYPASS GRAFT (12) S/P coronary artery stent placement Code(s): Z95.5 - PRESENCE OF CORONARY ANGIOPLASTY IMPLANT AND GRAFT (13) Systolic and diastolic CHF, acute on chronic Code(s): I50.43 - ACUTE ON CHRONIC COMBINED SYSTOLIC AND DIASTOLIC HRT FAIL (14) Ventricular tachycardia Code(s): I47.2 - VENTRICULAR TACHYCARDIA (15) Hyperkalemia Code(s): E87.5 - HYPERKALEMIA Assessment/Plan 1. Thrombosed AV graft planned for thrombectomy/revision 2. Recurrent hypotension precluding the above-noted procedure 3. CAD post MT/PCI(stent)/CABG, angina pectoris with history of demand ischemic injury 4. Ischemic dilated cardiomyopathy 5. Persistent atrial fibrillation, [id number] score of 4, recurrent arrhythmia currently on no anticoagulation therapy 6. History of syncope referable to sustained VT/VF 7. Post Medtr[employer]'s ICD implant 8. HTN history currently hypotensive on Midodrine therapy 9. DM 10. Hypothyroidism 11. ESRD on HD 12. Anemia and Thrombocytopenia 13. ESLD PLAN: 1. Ideally should be on Carvedilol and ACEI or ARBS therapies, but limitation is persistent symptomatic hypotension 2. Continue Amiodarone 100 qd 3. Recommend resumption of Coumadin therapy as per INR with caution unless it is absolutely contraindicated post-AVG revision, as an alternative to anticoagulation left atrial appendage closure device implant 4. Continue Midodrine 10 bid and further titrated dosage as needed to 10 mg 3 times daily 5. HD as per renal service 6. Consideration for repeat paracentesis for management of the above-noted ascites
[2017-06-13] MEDS ORDERED: PT OWN MED DRAWER 7, Y5N ONE (21:32)
[2017-06-13] MEDS ORDERED: INSULIN (NOVOLOG) ASPART 100 UNITS/ML 10ML VIAL ONE (21:46)
[2017-06-14] MEDS: oxyCODONE HCL 5 MG TABLET PO PRN ×3 (05:27→20:30)
[2017-06-14] MEDS: INSULIN SLIDING SCALE (NOVOLOG) 1 VIAL SQ SCH ×4 (06:51→22:22)
[2017-06-14] MEDS: LEVOTHYROXINE NA 75 MCG TABLET (FP) PO SCH (06:52)
[2017-06-14] MEDS ORDERED: PT OWN MED DRAWER 7, Y5N ONE ×3 (08:55→22:30)
[2017-06-14] MEDS ORDERED: fentaNYL 25mcg/hr PATCH.TD72 TD SCH (09:00)
[2017-06-14] MEDS: CEPHALEXIN MONOHYDRATE 500 MG CAPSULE (UD) PO SCH (09:02)
[2017-06-14] MEDS: MIDODRINE HCL 5 MG TABLET PO SCH ×3 (09:02→22:49)
[2017-06-14] MEDS: AMIODARONE HCL 200 MG TABLET (FP) PO SCH (09:03)
[2017-06-14] MEDS: SUCRALFATE 1 GM TABLET (FP) PO SCH ×2 (09:05→22:21)
--- NOTE | 2017-06-14 10:47 | PN ---
Progress Note, Physician History of Present Illness: Undergoing HD via groin access, abd distension improving with volume removal. - Current Medication List Current Medications: Active Medications Acetaminophen (Tylenol -) 325 mg PO QID PRN PRN Reason: PAIN Last Admin: 06/13/17 03:48 Dose: 325 mg Amiodarone HCl (Cordarone -) 100 mg PO DAILY [facility] Last Admin: 06/14/17 09:03 Dose: 100 mg Cephalexin HCl (Keflex -) 500 mg PO DAILY [facility] Last Admin: 06/14/17 09:02 Dose: 500 mg Diphenhydramine HCl (Benadryl Injection -) 12.5 mg IVPUSH Q4H PRN PRN Reason: FOR ITCHING Last Admin: 06/14/17 05:29 Dose: 12.5 mg Emollient Ointment (Aquaphor -) 1 applic TP BID [facility] Last Admin: 06/13/17 22:50 Dose: Not Given Fentanyl (Duragesic 25mcg Patch -) 1 patch TD Q3D [facility] Last Admin: 06/14/17 09:07 Dose: 1 patch Hydrocortisone (Anusol 2.5% Hc Cream -) 1 applic TP DAILY [facility] Last Admin: 06/13/17 09:18 Dose: 1 applic Insulin Aspart (Novolog Vial Sliding Scale -) 1 vial SQ ACHS [facility] PRN Reason: Protocol Last Admin: 06/14/17 06:51 Dose: Not Given Lactulose (Cephulac (Oral Use)) 20 gm PO BID [facility] Last Admin: 06/13/17 23:40 Dose: 20 gm Levothyroxine Sodium (Synthroid -) 75 mcg PO DAILY@0700 [facility] Last Admin: 06/14/17 06:52 Dose: Not Given Midodrine (Proamatine -) 10 mg PO BID-MID [facility] Last Admin: 06/14/17 09:02 Dose: 10 mg Miscellaneous (Duragesic Patch Waste) 1 each TD PRN PRN PRN Reason: PAIN Last Admin: 06/14/17 09:01 Dose: 1 each Multivit/Ca Carb/B Cmplx/FA/Prenat (Nephro-Adalberto -) 1 tablet PO DAILY [facility] Last Admin: 06/13/17 13:19 Dose: 1 tablet Neomycin/Polymyxin/Bacitracin (Neosporin Topical Ointment -) 1 applic TP BID [facility] Last Admin: 06/13/17 23:51 Dose: Not Given Ondansetron HCl (Zofran -) 4 mg PO BID PRN Oxycodone HCl (Roxicodone -) 10 mg PO Q4H PRN PRN Reason: PAIN Last Admin: 06/14/17 05:27 Dose: 10 mg Sevelamer Carbonate (Renvela -) 800 mg PO TIDCM [facility] Last Admin: 06/13/17 17:44 Dose: 800 mg Sodium Polystyrene Sulfonate (Kayexalate -) 15 gm PO MoWeFr@1000 [facility] Last Admin: 06/13/17 13:19 Dose: 15 gm Sucralfate (Carafate -) 1 gm PO BID [facility] Last Admin: 06/14/17 09:05 Dose: 1 gm - Objective Vital Signs: Vital Signs Temperature 98.1 F 06/14/17 01:46 Pulse Rate 85 06/14/17 01:46 Respiratory Rate 20 06/14/17 01:46 Blood Pressure 85/56 06/14/17 01:46 O2 Sat by Pulse Oximetry (%) 92 L 06/13/17 21:00 Constitutional: Yes: No Distress, Calm, Thin Neck: Yes: Supple Cardiovascular: Yes: Pulse Irregular Respiratory: Yes: Regular, Diminished, On Nasal O2 Gastrointestinal: Yes: Soft, Distention, Hypoactive Bowel Sounds Edema: Yes Edema: LLE: Trace, RLE: Trace Labs: CBC, BMP 06/11/17 18:00 06/11/17 18:00 INR, PTT INR 1.14 (0.82-1.09) 06/05/17 21:07 Problem List - Problems (1) Ascites Code(s): R18.8 - OTHER ASCITES Qualifiers: Ascites type: other type Qualified Code(s): R18.8 - Other ascites (2) Cirrhosis Code(s): K74.60 - UNSPECIFIED CIRRHOSIS OF LIVER Qualifiers: Hepatic cirrhosis type: unspecified hepatic cirrhosis Ascites presence: with ascites Qualified Code(s): K74.60 - Unspecified cirrhosis of liver (3) Clotted renal dialysis AV graft Code(s): T82.868A - THROMBOSIS DUE TO VASCULAR PROSTH DEV/GRFT, INIT Qualifiers: Encounter type: initial encounter Qualified Code(s): T82.868A - Thrombosis due to vascular prosthetic devices, implants and grafts, initial encounter (4) ESRD (end stage renal disease) Code(s): N18.6 - END STAGE RENAL DISEASE (5) Anemia Code(s): D64.9 - ANEMIA, UNSPECIFIED Qualifiers: Anemia type: due to chronic kidney disease Chronic kidney disease stage: on chronic dialysis Qualified Code(s): N18.6 - End stage renal disease (6) Atrial fibrillation Code(s): I48.91 - UNSPECIFIED ATRIAL FIBRILLATION Qualifiers: Atrial fibrillation type: persistent Qualified Code(s): I48.1 - Persistent atrial fibrillation (7) Coronary artery disease Code(s): I25.10 - ATHSCL HEART DISEASE OF [place] CORONARY ARTERY W/O ANG PCTRS Qualifiers: Coronary Disease-Associated Artery/Lesion type: [place] artery [place] vs. transplanted heart: [place] heart Associated angina: without angina Qualified Code(s): I25.10 - Atherosclerotic heart disease of [place] coronary artery without angina pectoris (8) Hypothyroidism Code(s): E03.9 - HYPOTHYROIDISM, UNSPECIFIED Qualifiers: Hypothyroidism type: acquired Qualified Code(s): E03.9 - Hypothyroidism, unspecified (9) ICD (implantable cardioverter-defibrillator) in place Code(s): Z95.810 - PRESENCE OF AUTOMATIC (IMPLANTABLE) CARDIAC DEFIBRILLATOR (10) Ischemic dilated cardiomyopathy Code(s): I25.5 - ISCHEMIC CARDIOMYOPATHY (11) S/P CABG (coronary artery bypass graft) Code(s): Z95.1 - PRESENCE OF AORTOCORONARY BYPASS GRAFT (12) S/P coronary artery stent placement Code(s): Z95.5 - PRESENCE OF CORONARY ANGIOPLASTY IMPLANT AND GRAFT (13) Systolic and diastolic CHF, acute on chronic Code(s): I50.43 - ACUTE ON CHRONIC COMBINED SYSTOLIC AND DIASTOLIC HRT FAIL (14) Ventricular tachycardia Code(s): I47.2 - VENTRICULAR TACHYCARDIA (15) Hyperkalemia Code(s): E87.5 - HYPERKALEMIA Assessment/Plan 1. Thrombosed AV graft planned for thrombectomy/revision 2. Recurrent hypotension precluding the above-noted procedure 3. CAD post IA/PCI(stent)/CABG, angina pectoris with history of demand ischemic injury 4. Ischemic dilated cardiomyopathy 5. Persistent atrial fibrillation, [id number] score of 4, recurrent arrhythmia currently on no anticoagulation therapy 6. History of syncope referable to sustained VT/VF 7. Post Medtr[employer]'s ICD implant 8. HTN history currently hypotensive on Midodrine therapy 9. DM 10. Hypothyroidism 11. ESRD on HD 12. Anemia and Thrombocytopenia 13. ESLD PLAN: 1. Ideally should be on Carvedilol and ACEI or ARBS therapies, but limitation is persistent symptomatic hypotension 2. Continue Amiodarone 100 qd 3. Recommend resumption of Coumadin therapy as per INR with caution unless it is absolutely contraindicated post-AVG revision, as an alternative to anticoagulation would be left atrial appendage closure device implant 4. Continue Midodrine 10 bid and further titrated dosage as needed to 10 mg 3 times daily 5. HD as per renal service
[2017-06-14 12:04] LABS: HEMATOCRIT 31.6 % (35.4-49); MCH 26.3 pg (25.7-33.7); MCHC 28.5 g/dl (32.0-35.9); MEAN CELL VOLUME 92.2 fl (80-96); MEAN PLT VOLUME 9.8 fl (7.5-11.1); PLATELET COUNT 138 K/MM3 (134-434); RBC 3.42 M/mm3 (4.00-5.60); RDW 21.4 % (11.9-15.9); WHITE BLOOD COUNT 11.3 K/mm3 (4.0-10.0)
[2017-06-14] MEDS: SEVELAMER CARBONATE 800 MG TAB (FP) PO SCH ×2 (12:24→17:52)
[2017-06-14] MEDS: HYDROCORTISONE 2.5% TOPICAL CREAM 30 GM TUBE TP SCH (12:24)
[2017-06-14] MEDS: MINERAL OIL/PET HY-PHL TOPICAL OINTMENT 454 GM JAR TP SCH ×2 (12:25→22:21)
[2017-06-14] MEDS: NEOMYCIN/POLYMYXIN/BACITRACIN (TRIPLE ANTIBIOTIC) 28 GM OINTMENT TP SCH ×2 (12:26→22:21)
[2017-06-14] MEDS: LACTULOSE 20 GM/30 ML UDC (FOR ORAL USE ONLY) PO SCH ×2 (12:26→22:20)
[2017-06-14 12:42] LABS: ANION GAP 15 (8-16); BLOOD UREA NITROGEN 74 mg/dL (7-18); CALCIUM 7.3 mg/dL (8.5-10.1); CHLORIDE 99 mmol/L (98-107); CO2 21 mmol/L (21-32); GLUCOSE,RANDOM 208 mg/dL (74-106); SODIUM 135 mmol/L (136-145)
[2017-06-14 12:44] LABS: CREATININE 8.9 mg/dL (0.7-1.3)
[2017-06-14] MEDS: VITAMIN B COMP W-C 1 EA TABLET PO SCH (13:33)
--- NOTE | 2017-06-14 14:03 | PN ---
Progress Note (short form) - Note Progress Note: CBC, BMP 06/14/17 11:22 06/14/17 11:20 Vital Signs Period Temp Pulse Resp BP Sys/Lopez Pulse Ox Last 24 Hr 97.5 F-98.2 F 53-134 18-20 85-212/52-90 92 S1S2 RRR lungs cta ant. abd soft distended +BS subcutenous edema persists pleurex removed abdominal excoriations weeping blisters on bilateral lower ext. IMP end stage cardiomyopathy with left and right heart failure cirrhosis ESRD hypotension paroxysmal afib IDDM fistula clotted, awaiting declotting this afternoon cardiopulmonary status as good as it can be for procedure HD today at bedside offers no complaints at present increase oxycodone frequency Problem List - Problems (1) Abdominal pain Code(s): R10.9 - UNSPECIFIED ABDOMINAL PAIN Qualifiers: Abdominal location: generalized Qualified Code(s): R10.84 - Generalized abdominal pain (2) Ascites Code(s): R18.8 - OTHER ASCITES Qualifiers: Ascites type: other type Qualified Code(s): R18.8 - Other ascites (3) Cirrhosis Code(s): K74.60 - UNSPECIFIED CIRRHOSIS OF LIVER Qualifiers: Hepatic cirrhosis type: unspecified hepatic cirrhosis Ascites presence: with ascites Qualified Code(s): K74.60 - Unspecified cirrhosis of liver (4) ESRD (end stage renal disease) Code(s): N18.6 - END STAGE RENAL DISEASE (5) Generalized weakness Code(s): R53.1 - WEAKNESS (6) Atrial fibrillation Code(s): I48.91 - UNSPECIFIED ATRIAL FIBRILLATION Qualifiers: Atrial fibrillation type: persistent Qualified Code(s): I48.1 - Persistent atrial fibrillation (7) Congestive heart failure Code(s): I50.9 - HEART FAILURE, UNSPECIFIED Qualifiers: Congestive heart failure type: combined Congestive heart failure chronicity : chronic Qualified Code(s): I50.42 - Chronic combined systolic (congestive) and diastolic (congestive) heart failure (8) Diabetes mellitus Code(s): E11.9 - TYPE 2 DIABETES MELLITUS WITHOUT COMPLICATIONS Qualifiers: Diabetes mellitus type: type 2 Diabetes mellitus complication status: with kidney complications Diabetes mellitus complication detail: with chronic kidney disease Diabetes mellitus halfway insulin use: with halfway use Chronic kidney disease stage: on chronic dialysis Qualified Code(s): E11.22 - Type 2 diabetes mellitus with diabetic chronic kidney disease; N18.6 - End stage renal disease; Z99.2 - Dependence on renal dialysis; Z99.2 - Dependence on renal dialysis; Z99.2 - Dependence on renal dialysis; N18.6 - End stage renal disease; N18.6 - End stage renal disease; N18.6 - End stage renal disease ; Z79.4 - terminal clerk (current) use of insulin; Z79.4 - correction (current) use of insulin; Z79.4 - terminal clerk (current) use of insulin; Z79.4 - terminal clerk ( current) use of insulin; Z99.2 - Dependence on renal dialysis (9) ICD (implantable cardioverter-defibrillator) in place Code(s): Z95.810 - PRESENCE OF AUTOMATIC (IMPLANTABLE) CARDIAC DEFIBRILLATOR (10) Ischemic dilated cardiomyopathy Code(s): I25.5 - ISCHEMIC CARDIOMYOPATHY
[2017-06-14] MEDS ORDERED: AMIODARONE HCL 150 MG/3 ML VIAL IVPUSH ONE (15:22)
[2017-06-14] MEDS ORDERED: AMIODARONE HCL 200 MG TABLET (FP) PO SCH (15:23)
[2017-06-14] MEDS ORDERED: AMIODARONE HCL IVPB ONE ×3 (15:45→19:31)
[2017-06-14] MEDS ORDERED: DEXTROSE 5% IVPB ONE ×2 (15:45→19:31)
[2017-06-14] MEDS ORDERED: WATER IVPB ONE ×2 (15:45→19:31)
[2017-06-14] MEDS ORDERED: SODIUM CHLORIDE IVPB ONE (15:45)
[2017-06-14] MEDS ORDERED: AMIODARONE HCL INJECTION 150 MG in DEXTROSE 5%-WATER - 100 ML IVPB ONE (15:50)
[2017-06-14] MEDS ORDERED: AMIODARONE HCL 150 MG/3 ML VIAL ONE (15:53)
[2017-06-14] MEDS ORDERED: AMIODARONE HCL 200 MG TABLET (FP) PO ONE (16:00)
[2017-06-14] MEDS ORDERED: HEPARIN NA (PORCINE) 5,000 UNITS/ML 1ML VIAL ONE (16:51)
[2017-06-14] MEDS ORDERED: LIDOCAINE HCL 1%, 10 MG/ML (20ML VIAL) ONE (16:51)
[2017-06-14] MEDS ORDERED: MIDAZOLAM HCL 2 MG/2 ML SINGLE DOSE VIAL ONE (18:05)
[2017-06-14] MEDS ORDERED: LIDOCAINE HCL 1%, 10 MG/ML (20ML VIAL) NR ONE (18:20)
[2017-06-14] MEDS ORDERED: ESMOLOL HCL 100,000 MCG/10 ML VIAL ONE (18:51)
--- NOTE | 2017-06-14 19:11 | OP ---
Operative Note - Note: Operative Date: 06/14/17 Pre-Operative Diagnosis: Thrombosed AV graft right arm Operation: Percutaneous thrombectomy and venoplasty axillary vein Findings: Thrombosed AV graft with stenosis of axillary anastomosis Post-Operative Diagnosis: Same as Pre-op Surgeon: Silvestre Steiner Anesthesiologist/CASE MAKING MACHINE OPERATOR: Del Lyon Anesthesia: Fractional
[2017-06-14] MEDS ORDERED: FENTANYL PATCH WASTE TD PRN (19:31)
[2017-06-14] MEDS ORDERED: FENTANYL PATCH WASTE MC PRN (19:31)
[2017-06-14] MEDS ORDERED: ONDANSETRON 4 MG TABLET PO PRN (19:31)
[2017-06-14] MEDS: ACETAMINOPHEN 325 MG TABLET (FP) PO PRN (20:31)
[2017-06-14] MEDS ORDERED: MIDODRINE HCL 5 MG TABLET PO ONE (22:45)
[2017-06-15] MEDS: oxyCODONE HCL 5 MG TABLET PO PRN ×4 (03:13→22:53)
[2017-06-15] MEDS: INSULIN SLIDING SCALE (NOVOLOG) 1 VIAL SQ SCH ×4 (06:10→22:54)
[2017-06-15] MEDS: LEVOTHYROXINE NA 75 MCG TABLET (FP) PO SCH (06:10)
--- NOTE | 2017-06-15 09:06 | PN ---
Progress Note (short form) - Note Progress Note: RENAL all notes reviewed Declotted yesterday evening Dialyzed via groin nery yesterday am Now awake Faint bruit over avg on po midodrine 10 BID Will use AVG see if works If clotted will need to get permcath and DC groin line case d/w PMD and pt in detail appetite poor suggest try megace 400 mg TIW
--- NOTE | 2017-06-15 09:22 | PN ---
Progress Note (short form) - Note Progress Note: CBC, BMP 06/14/17 11:22 06/14/17 11:20 Vital Signs Period Temp Pulse Resp BP Sys/Lopez Pulse Ox Last 24 Hr 97.7 F-98.5 F 53-146 16-22 75-212/45-81 100-100 S1S2 RRR lungs cta ant. abd soft distended +BS subcutenous edema persists pleurex removed abdominal excoriations bruit over right av graft IMP end stage cardiomyopathy with left and right heart failure cirrhosis ESRD hypotension paroxysmal afib IDDM hd to see if graft is functional physical therapy for ambulation wheelchair requested Problem List - Problems (1) Abdominal pain Code(s): R10.9 - UNSPECIFIED ABDOMINAL PAIN Qualifiers: Abdominal location: generalized Qualified Code(s): R10.84 - Generalized abdominal pain (2) Ascites Code(s): R18.8 - OTHER ASCITES Qualifiers: Ascites type: other type Qualified Code(s): R18.8 - Other ascites (3) Cirrhosis Code(s): K74.60 - UNSPECIFIED CIRRHOSIS OF LIVER Qualifiers: Hepatic cirrhosis type: unspecified hepatic cirrhosis Ascites presence: with ascites Qualified Code(s): K74.60 - Unspecified cirrhosis of liver (4) ESRD (end stage renal disease) Code(s): N18.6 - END STAGE RENAL DISEASE (5) Generalized weakness Code(s): R53.1 - WEAKNESS (6) Atrial fibrillation Code(s): I48.91 - UNSPECIFIED ATRIAL FIBRILLATION Qualifiers: Atrial fibrillation type: persistent Qualified Code(s): I48.1 - Persistent atrial fibrillation (7) Congestive heart failure Code(s): I50.9 - HEART FAILURE, UNSPECIFIED Qualifiers: Congestive heart failure type: combined Congestive heart failure chronicity : chronic Qualified Code(s): I50.42 - Chronic combined systolic (congestive) and diastolic (congestive) heart failure (8) Diabetes mellitus Code(s): E11.9 - TYPE 2 DIABETES MELLITUS WITHOUT COMPLICATIONS Qualifiers: Diabetes mellitus type: type 2 Diabetes mellitus complication status: with kidney complications Diabetes mellitus complication detail: with chronic kidney disease Diabetes mellitus exterminator helper insulin use: with nursing home use Chronic kidney disease stage: on chronic dialysis Qualified Code(s): E11.22 - Type 2 diabetes mellitus with diabetic chronic kidney disease; N18.6 - End stage renal disease; Z99.2 - Dependence on renal dialysis; Z99.2 - Dependence on renal dialysis; Z99.2 - Dependence on renal dialysis; N18.6 - End stage renal disease; N18.6 - End stage renal disease; N18.6 - End stage renal disease ; Z79.4 - halfway (current) use of insulin; Z79.4 - manager long term care (current) use of insulin; Z79.4 - manager long term care (current) use of insulin; Z79.4 - manager long term care ( current) use of insulin; Z99.2 - Dependence on renal dialysis (9) ICD (implantable cardioverter-defibrillator) in place Code(s): Z95.810 - PRESENCE OF AUTOMATIC (IMPLANTABLE) CARDIAC DEFIBRILLATOR (10) Ischemic dilated cardiomyopathy Code(s): I25.5 - ISCHEMIC CARDIOMYOPATHY
[2017-06-15] MEDS: SEVELAMER CARBONATE 800 MG TAB (FP) PO SCH ×3 (09:47→18:01)
[2017-06-15] MEDS: NEOMYCIN/POLYMYXIN/BACITRACIN (TRIPLE ANTIBIOTIC) 28 GM OINTMENT TP SCH ×2 (09:48→22:55)
[2017-06-15] MEDS: SODIUM POLYSTYRENE SULFONATE 15 GM/60 ML BOTTLE PO SCH (09:48)
[2017-06-15] MEDS: LACTULOSE 20 GM/30 ML UDC (FOR ORAL USE ONLY) PO SCH ×2 (09:48→22:50)
[2017-06-15] MEDS: AMIODARONE HCL 200 MG TABLET (FP) PO SCH (09:48)
[2017-06-15] MEDS: CEPHALEXIN MONOHYDRATE 500 MG CAPSULE (UD) PO SCH (09:48)
[2017-06-15] MEDS: VITAMIN B COMP W-C 1 EA TABLET PO SCH (09:49)
[2017-06-15] MEDS: MINERAL OIL/PET HY-PHL TOPICAL OINTMENT 454 GM JAR TP SCH ×2 (10:01→22:55)
[2017-06-15] MEDS: SUCRALFATE 1 GM TABLET (FP) PO SCH ×2 (10:01→22:51)
[2017-06-15] MEDS ORDERED: EPOETIN ALFA 2,000 UNIT/1 ML VIAL SQ ONE (10:15)
--- NOTE | 2017-06-15 10:15 | PN ---
Progress Note, Physician History of Present Illness: s/p clotted AVG revision, abd distension improving with volume removal, amio dose increased for rapid afib. - Current Medication List Current Medications: Active Medications Acetaminophen (Tylenol -) 325 mg PO QID PRN PRN Reason: PAIN Last Admin: 06/14/17 20:31 Dose: 325 mg Amiodarone HCl (Cordarone -) 200 mg PO DAILY [facility] [place] Last Admin: 06/15/17 09:48 Dose: 200 mg Cephalexin HCl (Keflex -) 500 mg PO DAILY [facility] [place] Last Admin: 06/15/17 09:48 Dose: 500 mg Diphenhydramine HCl (Benadryl Injection -) 12.5 mg IVPUSH Q4H PRN PRN Reason: FOR ITCHING Last Admin: 06/15/17 10:01 Dose: 12.5 mg Emollient Ointment (Aquaphor -) 1 applic TP BID [facility] [place] Last Admin: 06/15/17 10:01 Dose: 1 applic Epoetin [place] (Epogen -) 5,000 units SQ ONCE ONE Stop: 06/15/17 10:16 Fentanyl (Duragesic 25mcg Patch -) 1 patch TD Q3D [facility] [place] Hydrocortisone (Anusol 2.5% Hc Cream -) 1 applic TP DAILY [facility] [place] Insulin Aspart (Novolog Vial Sliding Scale -) 1 vial SQ ACHS [facility] PRN Reason: Protocol Last Admin: 06/15/17 06:10 Dose: 4 units Lactulose (Cephulac (Oral Use)) 20 gm PO BID [facility] [place] Last Admin: 06/15/17 09:48 Dose: 20 gm Levothyroxine Sodium (Synthroid -) 75 mcg PO DAILY@0700 [facility] [place] Last Admin: 06/15/17 06:10 Dose: 75 mcg Megestrol Acetate (Megace Oral Suspension -) 400 mg PO BID [facility] [place] Midodrine (Proamatine -) 10 mg PO BID-MID [facility] [place] Last Admin: 06/14/17 22:49 Dose: 10 mg Miscellaneous (Duragesic Patch Waste) 1 each TD PRN PRN PRN Reason: PAIN Multivit/Ca Carb/B Cmplx/FA/Prenat (Nephro-Adalberto -) 1 tablet PO DAILY [facility] [place] Last Admin: 06/15/17 09:49 Dose: 1 tablet Neomycin/Polymyxin/Bacitracin (Neosporin Topical Ointment -) 1 applic TP BID [facility] [place] Last Admin: 06/15/17 09:48 Dose: 1 applic Ondansetron HCl (Zofran -) 4 mg PO BID PRN Oxycodone HCl (Roxicodone -) 10 mg PO Q4H PRN PRN Reason: PAIN Last Admin: 06/15/17 10:00 Dose: 10 mg Sevelamer Carbonate (Renvela -) 800 mg PO TIDCM [facility] [place] Last Admin: 06/15/17 09:47 Dose: 800 mg Sodium Polystyrene Sulfonate (Kayexalate -) 15 gm PO MoWeFr@1000 [facility] [place] Last Admin: 06/15/17 09:48 Dose: 15 gm Sucralfate (Carafate -) 1 gm PO BID [facility] [place] Last Admin: 06/15/17 10:01 Dose: 1 gm - Objective Vital Signs: Vital Signs Temperature 98.1 F 06/15/17 09:46 Pulse Rate 110 H 06/15/17 09:46 Respiratory Rate 20 06/15/17 09:46 Blood Pressure 121/60 06/15/17 09:46 O2 Sat by Pulse Oximetry (%) 100 06/14/17 20:30 Constitutional: Yes: No Distress, Calm Neck: Yes: Supple Cardiovascular: Yes: Tachycardia, Pulse Irregular Respiratory: Yes: Regular, Diminished, On Nasal O2 Gastrointestinal: Yes: Soft, Distention, Hypoactive Bowel Sounds Edema: Yes Edema: LLE: 1+, RLE: 1+ Labs: CBC, BMP 06/14/17 11:22 06/14/17 11:20 INR, PTT INR 1.14 (0.82-1.09) 06/05/17 21:07 Problem List - Problems (1) Ascites Code(s): R18.8 - OTHER ASCITES Qualifiers: Ascites type: other type Qualified Code(s): R18.8 - Other ascites (2) Cirrhosis Code(s): K74.60 - UNSPECIFIED CIRRHOSIS OF LIVER Qualifiers: Hepatic cirrhosis type: unspecified hepatic cirrhosis Ascites presence: with ascites Qualified Code(s): K74.60 - Unspecified cirrhosis of liver (3) Clotted renal dialysis AV graft Code(s): T82.868A - THROMBOSIS DUE TO VASCULAR PROSTH DEV/GRFT, INIT Qualifiers: Encounter type: initial encounter Qualified Code(s): T82.868A - Thrombosis due to vascular prosthetic devices, implants and grafts, initial encounter (4) ESRD (end stage renal disease) Code(s): N18.6 - END STAGE RENAL DISEASE (5) Anemia Code(s): D64.9 - ANEMIA, UNSPECIFIED Qualifiers: Anemia type: due to chronic kidney disease Chronic kidney disease stage: on chronic dialysis Qualified Code(s): N18.6 - End stage renal disease (6) Atrial fibrillation Code(s): I48.91 - UNSPECIFIED ATRIAL FIBRILLATION Qualifiers: Atrial fibrillation type: persistent Qualified Code(s): I48.1 - Persistent atrial fibrillation (7) Coronary artery disease Code(s): I25.10 - ATHSCL HEART DISEASE OF [place] CORONARY ARTERY W/O ANG PCTRS Qualifiers: Coronary Disease-Associated Artery/Lesion type: [place] artery [place] vs. transplanted heart: [place] heart Associated angina: without angina Qualified Code(s): I25.10 - Atherosclerotic heart disease of [place] coronary artery without angina pectoris (8) Hypothyroidism Code(s): E03.9 - HYPOTHYROIDISM, UNSPECIFIED Qualifiers: Hypothyroidism type: acquired Qualified Code(s): E03.9 - Hypothyroidism, unspecified (9) ICD (implantable cardioverter-defibrillator) in place Code(s): Z95.810 - PRESENCE OF AUTOMATIC (IMPLANTABLE) CARDIAC DEFIBRILLATOR (10) Ischemic dilated cardiomyopathy Code(s): I25.5 - ISCHEMIC CARDIOMYOPATHY (11) S/P CABG (coronary artery bypass graft) Code(s): Z95.1 - PRESENCE OF AORTOCORONARY BYPASS GRAFT (12) S/P coronary artery stent placement Code(s): Z95.5 - PRESENCE OF CORONARY ANGIOPLASTY IMPLANT AND GRAFT (13) Systolic and diastolic CHF, acute on chronic Code(s): I50.43 - ACUTE ON CHRONIC COMBINED SYSTOLIC AND DIASTOLIC HRT FAIL (14) Ventricular tachycardia Code(s): I47.2 - VENTRICULAR TACHYCARDIA (15) Hyperkalemia Code(s): E87.5 - HYPERKALEMIA Assessment/Plan 1. Thrombosed AV graft s/p percutaneous thrombectomy and venoplasty axillary vein 2. Recurrent hypotension 3. CAD post VT/PCI(stent)/CABG, angina pectoris with history of demand ischemic injury 4. Ischemic dilated cardiomyopathy 5. Persistent atrial fibrillation, [id number] score of 4, with rapid ventricula response currently on no anticoagulation therapy 6. History of syncope referable to sustained VT/VF 7. Post Medtr[employer]'s ICD implant 8. HTN history currently hypotensive on Midodrine therapy 9. DM 10. Hypothyroidism 11. ESRD on HD 12. Anemia and Thrombocytopenia 13. ESLD PLAN: 1. Ideally should be on Carvedilol and ACEI or ARBS therapies, but limitation is persistent symptomatic hypotension 2. Increased Amiodarone 200 qd for more rate-control 3. Coumadin previously discontinued due to GI bleed per previous d/c summary, alternative to anticoagulation would be left atrial appendage closure device implant 4. Continue Midodrine 10 bid and further titrated dosage as needed to 10 mg 3 times daily 5. HD attempt via AVG as per renal service 6. Attempt PT
[2017-06-15] MEDS ORDERED: EPOETIN ALFA 3,000 UNIT/1 ML ML SQ ONE (10:30)
[2017-06-15] MEDS: MEGESTROL ACETATE 400 MG/10 ML UNIT DOSE CUP PO SCH ×2 (11:56→22:54)
[2017-06-15] MEDS: MIDODRINE HCL 5 MG TABLET PO SCH ×2 (11:56→18:01)
[2017-06-15] MEDS: HYDROCORTISONE 2.5% TOPICAL CREAM 30 GM TUBE TP SCH (14:35)
--- NOTE | 2017-06-15 17:39 | PROC ---
Procedure Note Procedure: Right groin shiley removed. Pressure held for 10 minutes. No bleeding noted and pressure dressing reapplied.
[2017-06-15] MEDS ORDERED: PT OWN MED DRAWER 7, Y5N ONE (22:29)
[2017-06-15] MEDS: ACETAMINOPHEN 325 MG TABLET (FP) PO PRN (22:51)
[2017-06-16] MEDS: oxyCODONE HCL 5 MG TABLET PO PRN ×4 (04:49→22:14)
[2017-06-16] MEDS: ACETAMINOPHEN 325 MG TABLET (FP) PO PRN (04:49)
[2017-06-16] MEDS: LEVOTHYROXINE NA 75 MCG TABLET (FP) PO SCH (06:55)
[2017-06-16] MEDS: INSULIN SLIDING SCALE (NOVOLOG) 1 VIAL SQ SCH ×4 (06:55→22:29)
--- NOTE | 2017-06-16 08:50 | PN ---
Progress Note, Physician Chief Complaint: No new complaints - Current Medication List Current Medications: Active Medications Acetaminophen (Tylenol -) 325 mg PO QID PRN PRN Reason: PAIN Last Admin: 06/16/17 04:49 Dose: 325 mg Amiodarone HCl (Cordarone -) 200 mg PO DAILY [facility] Last Admin: 06/15/17 09:48 Dose: 200 mg Cephalexin HCl (Keflex -) 500 mg PO DAILY [facility] Last Admin: 06/15/17 09:48 Dose: 500 mg Diphenhydramine HCl (Benadryl Injection -) 12.5 mg IVPUSH Q4H PRN PRN Reason: FOR ITCHING Last Admin: 06/15/17 22:50 Dose: 12.5 mg Emollient Ointment (Aquaphor -) 1 applic TP BID [facility] Last Admin: 06/15/17 22:55 Dose: 1 applic Fentanyl (Duragesic 25mcg Patch -) 1 patch TD Q3D [facility] Hydrocortisone (Anusol 2.5% Hc Cream -) 1 applic TP DAILY [facility] Last Admin: 06/15/17 14:35 Dose: Not Given Insulin Aspart (Novolog Vial Sliding Scale -) 1 vial SQ ACHS [facility] PRN Reason: Protocol Last Admin: 06/16/17 06:55 Dose: 4 units Lactulose (Cephulac (Oral Use)) 20 gm PO BID [facility] Last Admin: 06/15/17 22:50 Dose: 20 gm Levothyroxine Sodium (Synthroid -) 75 mcg PO DAILY@0700 [facility] Last Admin: 06/16/17 06:55 Dose: 75 mcg Megestrol Acetate (Megace Oral Suspension -) 400 mg PO BID [facility] Last Admin: 06/15/17 22:54 Dose: 400 mg Midodrine (Proamatine -) 10 mg PO BID-MID [facility] Last Admin: 06/15/17 18:01 Dose: 10 mg Miscellaneous (Duragesic Patch Waste) 1 each TD PRN PRN PRN Reason: PAIN Multivit/Ca Carb/B Cmplx/FA/Prenat (Nephro-Adalberto -) 1 tablet PO DAILY [facility] Last Admin: 06/15/17 09:49 Dose: 1 tablet Neomycin/Polymyxin/Bacitracin (Neosporin Topical Ointment -) 1 applic TP BID [facility] Last Admin: 06/15/17 22:55 Dose: 1 applic Ondansetron HCl (Zofran -) 4 mg PO BID PRN Oxycodone HCl (Roxicodone -) 10 mg PO Q4H PRN PRN Reason: PAIN Last Admin: 06/16/17 04:49 Dose: 10 mg Sevelamer Carbonate (Renvela -) 800 mg PO TIDCM [facility] Last Admin: 06/15/17 18:01 Dose: 800 mg Sodium Polystyrene Sulfonate (Kayexalate -) 15 gm PO MoWeFr@1000 [facility] Last Admin: 06/15/17 09:48 Dose: 15 gm Sucralfate (Carafate -) 1 gm PO BID [facility] Last Admin: 06/15/17 22:51 Dose: 1 gm - Objective Vital Signs: Vital Signs Temperature 97.4 F L 06/16/17 06:00 Pulse Rate 127 H 06/16/17 06:00 Respiratory Rate 18 06/16/17 06:00 Blood Pressure 89/51 06/16/17 06:00 O2 Sat by Pulse Oximetry (%) 100 06/15/17 21:00 Constitutional: Yes: No Distress Neck: Yes: Supple Cardiovascular: Yes: Regular Rate and Rhythm, S1, S2 Respiratory: Yes: CTA Bilaterally Gastrointestinal: Yes: Normal Bowel Sounds, Soft, Ascites, Distention Neurological: Yes: Alert. No: Loss of Sensation ...Motor Strength: WNL Labs: CBC, BMP 06/14/17 11:22 06/14/17 11:20 INR, PTT INR 1.14 (0.82-1.09) 06/05/17 21:07 Problem List - Problems (1) ESRD (end stage renal disease) Assessment/Plan: HD as per renal Code(s): N18.6 - END STAGE RENAL DISEASE (2) Congestive heart failure Assessment/Plan: Volume status better Code(s): I50.9 - HEART FAILURE, UNSPECIFIED Qualifiers: Congestive heart failure type: combined Congestive heart failure chronicity : chronic Qualified Code(s): I50.42 - Chronic combined systolic (congestive) and diastolic (congestive) heart failure
[2017-06-16] MEDS: MINERAL OIL/PET HY-PHL TOPICAL OINTMENT 454 GM JAR TP SCH ×2 (09:33→22:23)
[2017-06-16] MEDS: VITAMIN B COMP W-C 1 EA TABLET PO SCH (09:33)
[2017-06-16] MEDS: LACTULOSE 20 GM/30 ML UDC (FOR ORAL USE ONLY) PO SCH ×2 (09:33→22:14)
[2017-06-16] MEDS: MIDODRINE HCL 5 MG TABLET PO SCH ×2 (09:34→17:09)
[2017-06-16] MEDS: CEPHALEXIN MONOHYDRATE 500 MG CAPSULE (UD) PO SCH (09:34)
[2017-06-16] MEDS: AMIODARONE HCL 200 MG TABLET (FP) PO SCH (09:34)
[2017-06-16] MEDS: NEOMYCIN/POLYMYXIN/BACITRACIN (TRIPLE ANTIBIOTIC) 28 GM OINTMENT TP SCH ×2 (09:35→22:23)
[2017-06-16] MEDS: SUCRALFATE 1 GM TABLET (FP) PO SCH ×2 (09:35→22:15)
[2017-06-16] MEDS: HYDROCORTISONE 2.5% TOPICAL CREAM 30 GM TUBE TP SCH (09:35)
[2017-06-16] MEDS: MEGESTROL ACETATE 400 MG/10 ML UNIT DOSE CUP PO SCH ×2 (09:35→22:14)
[2017-06-16] MEDS: SEVELAMER CARBONATE 800 MG TAB (FP) PO SCH ×3 (09:35→17:08)
--- NOTE | 2017-06-16 10:09 | PN ---
Progress Note, Physician History of Present Illness: s/p clotted AVG revision, abd distension improving with volume removal, amio dose increased for rapid afib. - Current Medication List Current Medications: Active Medications Acetaminophen (Tylenol -) 325 mg PO QID PRN PRN Reason: PAIN Last Admin: 06/16/17 04:49 Dose: 325 mg Amiodarone HCl (Cordarone -) 200 mg PO DAILY [facility] Last Admin: 06/16/17 09:34 Dose: 200 mg Cephalexin HCl (Keflex -) 500 mg PO DAILY [facility] Last Admin: 06/16/17 09:34 Dose: 500 mg Diphenhydramine HCl (Benadryl Injection -) 12.5 mg IVPUSH Q4H PRN PRN Reason: FOR ITCHING Last Admin: 06/16/17 09:34 Dose: 12.5 mg Emollient Ointment (Aquaphor -) 1 applic TP BID [facility] Last Admin: 06/16/17 09:33 Dose: 1 applic Fentanyl (Duragesic 25mcg Patch -) 1 patch TD Q3D [facility] Hydrocortisone (Anusol 2.5% Hc Cream -) 1 applic TP DAILY [facility] Last Admin: 06/16/17 09:35 Dose: 1 applic Insulin Aspart (Novolog Vial Sliding Scale -) 1 vial SQ ACHS [facility] PRN Reason: Protocol Last Admin: 06/16/17 06:55 Dose: 4 units Lactulose (Cephulac (Oral Use)) 20 gm PO BID [facility] Last Admin: 06/16/17 09:33 Dose: 20 gm Levothyroxine Sodium (Synthroid -) 75 mcg PO DAILY@0700 [facility] Last Admin: 06/16/17 06:55 Dose: 75 mcg Megestrol Acetate (Megace Oral Suspension -) 400 mg PO BID [facility] Last Admin: 06/16/17 09:35 Dose: 400 mg Midodrine (Proamatine -) 10 mg PO BID-MID [facility] Last Admin: 06/16/17 09:34 Dose: 10 mg Miscellaneous (Duragesic Patch Waste) 1 each TD PRN PRN PRN Reason: PAIN Multivit/Ca Carb/B Cmplx/FA/Prenat (Nephro-Adalberto -) 1 tablet PO DAILY [facility] Last Admin: 06/16/17 09:33 Dose: 1 tablet Neomycin/Polymyxin/Bacitracin (Neosporin Topical Ointment -) 1 applic TP BID [facility] Last Admin: 06/16/17 09:35 Dose: 1 applic Ondansetron HCl (Zofran -) 4 mg PO BID PRN Oxycodone HCl (Roxicodone -) 10 mg PO Q4H PRN PRN Reason: PAIN Last Admin: 06/16/17 09:34 Dose: 10 mg Sevelamer Carbonate (Renvela -) 800 mg PO TIDCM [facility] Last Admin: 06/16/17 09:35 Dose: 800 mg Sodium Polystyrene Sulfonate (Kayexalate -) 15 gm PO MoWeFr@1000 [facility] Last Admin: 06/15/17 09:48 Dose: 15 gm Sucralfate (Carafate -) 1 gm PO BID [facility] Last Admin: 06/16/17 09:35 Dose: 1 gm - Objective Vital Signs: Vital Signs Temperature 98.0 F 06/16/17 09:58 Pulse Rate 125 H 06/16/17 09:58 Respiratory Rate 20 06/16/17 09:58 Blood Pressure 92/49 06/16/17 09:58 O2 Sat by Pulse Oximetry (%) 100 06/15/17 21:00 Constitutional: Yes: No Distress, Calm Neck: Yes: Supple Cardiovascular: Yes: Tachycardia, Pulse Irregular Respiratory: Yes: Regular, Diminished Gastrointestinal: Yes: Normal Bowel Sounds, Soft, Distention Edema: Yes Edema: LLE: 1+, RLE: 1+ Labs: CBC, BMP 06/14/17 11:22 06/14/17 11:20 INR, PTT INR 1.14 (0.82-1.09) 06/05/17 21:07 - ....Imaging EKG: Report Reviewed (Tele: Afib) Problem List - Problems (1) Ascites Code(s): R18.8 - OTHER ASCITES Qualifiers: Ascites type: other type Qualified Code(s): R18.8 - Other ascites (2) Cirrhosis Code(s): K74.60 - UNSPECIFIED CIRRHOSIS OF LIVER Qualifiers: Hepatic cirrhosis type: unspecified hepatic cirrhosis Ascites presence: with ascites Qualified Code(s): K74.60 - Unspecified cirrhosis of liver (3) Clotted renal dialysis AV graft Code(s): T82.868A - THROMBOSIS DUE TO VASCULAR PROSTH DEV/GRFT, INIT Qualifiers: Encounter type: initial encounter Qualified Code(s): T82.868A - Thrombosis due to vascular prosthetic devices, implants and grafts, initial encounter (4) ESRD (end stage renal disease) Code(s): N18.6 - END STAGE RENAL DISEASE (5) Anemia Code(s): D64.9 - ANEMIA, UNSPECIFIED Qualifiers: Anemia type: due to chronic kidney disease Chronic kidney disease stage: on chronic dialysis Qualified Code(s): N18.6 - End stage renal disease (6) Atrial fibrillation Code(s): I48.91 - UNSPECIFIED ATRIAL FIBRILLATION Qualifiers: Atrial fibrillation type: persistent Qualified Code(s): I48.1 - Persistent atrial fibrillation (7) Coronary artery disease Code(s): I25.10 - ATHSCL HEART DISEASE OF [place] CORONARY ARTERY W/O ANG PCTRS Qualifiers: Coronary Disease-Associated Artery/Lesion type: [place] artery [place] vs. transplanted heart: [place] heart Associated angina: without angina Qualified Code(s): I25.10 - Atherosclerotic heart disease of [place] coronary artery without angina pectoris (8) Hypothyroidism Code(s): E03.9 - HYPOTHYROIDISM, UNSPECIFIED Qualifiers: Hypothyroidism type: acquired Qualified Code(s): E03.9 - Hypothyroidism, unspecified (9) ICD (implantable cardioverter-defibrillator) in place Code(s): Z95.810 - PRESENCE OF AUTOMATIC (IMPLANTABLE) CARDIAC DEFIBRILLATOR (10) Ischemic dilated cardiomyopathy Code(s): I25.5 - ISCHEMIC CARDIOMYOPATHY (11) S/P CABG (coronary artery bypass graft) Code(s): Z95.1 - PRESENCE OF AORTOCORONARY BYPASS GRAFT (12) S/P coronary artery stent placement Code(s): Z95.5 - PRESENCE OF CORONARY ANGIOPLASTY IMPLANT AND GRAFT (13) Systolic and diastolic CHF, acute on chronic Code(s): I50.43 - ACUTE ON CHRONIC COMBINED SYSTOLIC AND DIASTOLIC HRT FAIL (14) Ventricular tachycardia Code(s): I47.2 - VENTRICULAR TACHYCARDIA Assessment/Plan 1. Thrombosed AV graft s/p percutaneous thrombectomy and venoplasty axillary vein 2. Recurrent hypotension 3. CAD post HI/PCI(stent)/CABG, angina pectoris with history of demand ischemic injury 4. Ischemic dilated cardiomyopathy 5. Persistent atrial fibrillation, [id number] score of 4, with rapid ventricula response currently on no anticoagulation therapy 6. History of syncope referable to sustained VT/VF 7. Post [employer]tr[employer]'s ICD implant 8. HTN history currently hypotensive on Midodrine therapy 9. DM 10. Hypothyroidism 11. ESRD on HD 12. Anemia and Thrombocytopenia 13. ESLD PLAN: 1. Ideally should be on Carvedilol and ACEI or ARBS therapies, but limitation is persistent symptomatic hypotension 2. Increased Amiodarone 200 qd for more rate-control 3. Coumadin previously discontinued due to GI bleed per previous d/c summary, alternative to anticoagulation would be left atrial appendage closure device implant 4. Continue Midodrine 10 bid and further titrated dosage as needed to 10 mg 3 times daily 5. HD attempt via AVG as per renal service 6. Attempt PT
--- NOTE | 2017-06-16 13:23 | PN ---
Progress Note (short form) - Note Progress Note: 62 year old man with end stage renal disease on maintenance hemodialysis. Patient is een today at the bed side. Reports feeling weak and with poor appetite. Vitals: Vital Signs (72 hours) 06/13/17 06/13/17 06/13/17 17:00 21:00 22:00 Temperature 97.5 F L 98.2 F Pulse Rate 134 H 126 H Respiratory 20 20 Rate Blood Pressure 95/56 150/90 O2 Sat by Pulse 92 L Oximetry (%) 06/14/17 06/14/17 06/14/17 01:46 09:00 10:40 Temperature 98.1 F Pulse Rate 85 63 Respiratory 20 18 Rate Blood Pressure 85/56 135/65 O2 Sat by Pulse 95 Oximetry (%) 06/14/17 06/14/17 06/14/17 10:55 11:25 11:55 Temperature Pulse Rate 61 98 H 53 L Respiratory 18 18 18 Rate Blood Pressure 212/52 96/59 105/72 O2 Sat by Pulse Oximetry (%) 06/14/17 06/14/17 06/14/17 12:25 12:55 13:25 Temperature Pulse Rate 118 H 79 65 Respiratory 18 18 18 Rate Blood Pressure 100/70 93/68 120/61 O2 Sat by Pulse Oximetry (%) 06/14/17 06/14/17 06/14/17 13:55 14:10 14:20 Temperature Pulse Rate 81 98 H 89 Respiratory 18 18 18 Rate Blood Pressure 101/66 92/64 99/61 O2 Sat by Pulse Oximetry (%) 06/14/17 06/14/17 06/14/17 14:48 15:34 19:07 Temperature 97.7 F 98.4 F Pulse Rate 105 H 100 H Respiratory 20 22 Rate Blood Pressure 120/61 127/66 95/81 O2 Sat by Pulse 100 Oximetry (%) 06/14/17 06/14/17 06/14/17 19:20 19:35 19:50 Temperature Pulse Rate 110 H 116 H 108 H Respiratory 18 16 16 Rate Blood Pressure 78/60 85/70 75/50 O2 Sat by Pulse 100 100 100 Oximetry (%) 06/14/17 06/14/17 06/14/17 20:05 20:30 21:30 Temperature 98.5 F 98.4 F 98.4 F Pulse Rate 110 H 146 H 129 H Respiratory 20 20 20 Rate Blood Pressure 86/72 163/75 77/45 O2 Sat by Pulse 100 Oximetry (%) 06/15/17 06/15/17 06/15/17 02:00 09:00 09:46 Temperature 98.0 F 98.1 F Pulse Rate 100 H 110 H Respiratory 20 20 20 Rate Blood Pressure 126/61 121/60 O2 Sat by Pulse 100 Oximetry (%) 06/15/17 06/15/17 06/15/17 12:55 13:00 13:30 Temperature 97.2 F L Pulse Rate 84 60 52 L Respiratory 18 18 18 Rate Blood Pressure 87/45 80/67 79/54 O2 Sat by Pulse Oximetry (%) 06/15/17 06/15/17 06/15/17 14:00 14:30 15:00 Temperature Pulse Rate 100 H 72 70 Respiratory 18 18 18 Rate Blood Pressure 89/46 72/47 60/47 O2 Sat by Pulse Oximetry (%) 06/15/17 06/15/17 06/15/17 15:30 15:40 15:55 Temperature Pulse Rate 74 71 118 H Respiratory 18 18 16 Rate Blood Pressure 92/53 84/52 120/48 O2 Sat by Pulse Oximetry (%) 06/15/17 06/15/17 06/15/17 15:58 18:40 21:00 Temperature 98.2 F Pulse Rate 56 L 120 H Respiratory 18 18 18 Rate Blood Pressure 82/55 119/52 O2 Sat by Pulse 100 Oximetry (%) 06/15/17 06/16/17 06/16/17 22:00 02:02 06:00 Temperature 98.1 F 98.2 F 97.4 F L Pulse Rate 118 H 110 H 127 H Respiratory 18 18 18 Rate Blood Pressure 98/50 81/45 89/51 O2 Sat by Pulse Oximetry (%) 06/16/17 09:58 Temperature 98.0 F Pulse Rate 125 H Respiratory 20 Rate Blood Pressure 92/49 O2 Sat by Pulse Oximetry (%) Lungs: Good air entry proximally and with dullness at the bases Heart: S1 S2 regular Abd: Obese, soft, positive ascites Ext: 1+ bipedal edema Neuro: No focality Access: No bruit appreciated. LABS: CBCD WBC 11.3 K/mm3 (4.0-10.0) H 06/14/17 11:22 RBC 3.42 M/mm3 (4.00-5.60) L 06/14/17 11:22 Hgb 9.0 GM/dL (11.7-16.9) L 06/14/17 11:22 Hct 31.6 % (35.4-49) L 06/14/17 11:22 MCV 92.2 fl (80-96) 06/14/17 11:22 MCHC 28.5 g/dl (32.0-35.9) L 06/14/17 11:22 RDW 21.4 % (11.9-15.9) H 06/14/17 11:22 Plt Count 138 K/MM3 (134-434) 06/14/17 11:22 MPV 9.8 fl (7.5-11.1) 06/14/17 11:22 CMP Sodium 135 mmol/L (136-145) L 06/14/17 11:20 Potassium 5.0 mmol/L (3.5-5.1) 06/14/17 11:20 Chloride 99 mmol/L (98-107) 06/14/17 11:20 Carbon Dioxide 21 mmol/L (21-32) 06/14/17 11:20 Anion Gap 15 (8-16) 06/14/17 11:20 BUN 74 mg/dL (7-18) H 06/14/17 11:20 Creatinine 8.9 mg/dL (0.7-1.3) H* 06/14/17 11:20 Creat Clearance w eGFR 9.93 (>60) 06/07/17 12:27 Calcium 7.3 mg/dL (8.5-10.1) L 06/14/17 11:20 Total Bilirubin 0.5 mg/dL (0.2-1.0) 06/07/17 12:27 AST 19 U/L (15-37) D 06/07/17 12:27 ALT 7 U/L (12-78) L D 06/07/17 12:27 Alkaline Phosphatase 163 U/L (45-117) H 06/07/17 12:27 Total Protein 6.6 g/dl (6.4-8.2) 06/07/17 12:27 Albumin 2.2 g/dl (3.4-5.0) L 06/07/17 12:27 A/P: 62 year old gentleman with end stage renal disease. Will request vascular surgery evaluation of ? thrombosed right arm AV graft. Advised to avoid lying on the access arm.
--- NOTE | 2017-06-16 13:39 | PN ---
Progress Note (short form) - Note Progress Note: Was able to use graft for dialysis yesterday but today there is no bruit. BP remains low - 80 systolic. It is likely that low flow is leading to prosthetic graft thrombosis and reppaeating declot does not make sense. Permacath can be placed for access in this situation. Problem List - Problems (1) Clotted renal dialysis AV graft Code(s): T82.868A - THROMBOSIS DUE TO VASCULAR PROSTH DEV/GRFT, INIT Qualifiers: Encounter type: initial encounter Qualified Code(s): T82.868A - Thrombosis due to vascular prosthetic devices, implants and grafts, initial encounter (2) ESRD (end stage renal disease) Code(s): N18.6 - END STAGE RENAL DISEASE
--- NOTE | 2017-06-16 15:23 | OP ---
DATE OF OPERATION: 06/14/2017 SURGEON: Silvestre Randolph MD PROCEDURE: Percutaneous thrombectomy and venoplasty of the axillary vein. PREOPERATIVE DIAGNOSIS: Thrombosed atrioventricular graft of right arm. POSTOPERATIVE DIAGNOSIS: Thrombosed atrioventricular graft of right arm. ANESTHESIA: Fractional anesthesia. ANESTHESIOLOGIST: Dr. Lyon OPERATIVE FINDINGS: The right upper arm AV graft was thrombosed. Following thrombectomy, there was a 50% stenosis of the axillary anastomosis. OPERATIVE PROCEDURE: Following routine patient identification with site and side verification, intravenous sedation was established. The right arm was prepped with ChloraPrep. Using real time duplex imaging, the arterial limb of the AV graft was identified in the medial aspect of the right upper arm. Lidocaine was infiltrated in the skin over the graft, and under ultrasound guidance, a micropuncture needle was advanced through the skin and into the graft lumen. A wire was passed into the graft and then the needle exchanged for a 5-Tajik catheter. The catheter was then exchanged over the wire for a 7-Tajik sheath. An angle-tip wire and catheter were then advanced through the graft, through the venous anastomosis, and into the subclavian vein. Contrast was injected to confirm patency of the vein. The patient was systemically heparinized. The wire was replaced and the catheter removed. The AngioJet AVX catheter was then used to perform suction thrombectomy of the graft. Imaging revealed an area of stenosis at the graft anastomosis, and this was balloon dilated with a 7-mm angioplasty balloon. Kal catheter was also used to remove clot from the graft, which was brought out through the sheath, which was flushed and replaced. Repeat imaging revealed a patent graft with no residual thrombus and a patent venous anastomosis. The sheath was removed and the puncture site closed with a mattress suture of 3-0 nylon. The sheath was then replaced in the venous limb of the graft. The wire and catheter were passed through the arterial anastomosis and angiogram obtained of the axillary artery, which revealed it to be patent with good runoff but no flow into the graft. The AngioJet was used on the arterial limb of the graft, and a Kal catheter passed to restore arterial inflow. imaging revealed a patent graft with no evidence of distal embolization in the arm. The sheath was removed and bleeding controlled with a mattress suture of nylon. Sterile dressings were applied, and the patient was taken to the recovery room in stable condition. SILVESTRE RANDOLPH M.D. [id number]
[2017-06-16] MEDS ORDERED: PT OWN MED DRAWER 7, Y5N ONE (22:07)
[2017-06-17] MEDS: oxyCODONE HCL 5 MG TABLET PO PRN ×4 (02:06→17:06)
[2017-06-17] MEDS: LEVOTHYROXINE NA 75 MCG TABLET (FP) PO SCH (06:07)
[2017-06-17] MEDS: INSULIN SLIDING SCALE (NOVOLOG) 1 VIAL SQ SCH ×4 (06:09→22:29)
[2017-06-17] MEDS ORDERED: INSULIN (NOVOLOG) ASPART 100 UNITS/ML 10ML VIAL ONE (06:20)
[2017-06-17] MEDS ORDERED: fentaNYL 25mcg/hr PATCH.TD72 TD SCH (09:00)
[2017-06-17] MEDS ORDERED: PT OWN MED DRAWER 7, Y5N ONE ×3 (09:30→21:08)
[2017-06-17] MEDS: AMIODARONE HCL 200 MG TABLET (FP) PO SCH (09:49)
[2017-06-17] MEDS: SEVELAMER CARBONATE 800 MG TAB (FP) PO SCH ×3 (09:49→17:06)
[2017-06-17] MEDS: CEPHALEXIN MONOHYDRATE 500 MG CAPSULE (UD) PO SCH (09:49)
[2017-06-17] MEDS: VITAMIN B COMP W-C 1 EA TABLET PO SCH (09:50)
[2017-06-17] MEDS: ACETAMINOPHEN 325 MG TABLET (FP) PO PRN ×2 (09:50→17:07)
[2017-06-17] MEDS: LACTULOSE 20 GM/30 ML UDC (FOR ORAL USE ONLY) PO SCH ×2 (09:51→21:26)
[2017-06-17] MEDS: MIDODRINE HCL 5 MG TABLET PO SCH ×2 (09:51→17:39)
[2017-06-17] MEDS: MEGESTROL ACETATE 400 MG/10 ML UNIT DOSE CUP PO SCH ×3 (09:51→21:26)
[2017-06-17] MEDS: SUCRALFATE 1 GM TABLET (FP) PO SCH ×2 (09:52→21:26)
[2017-06-17] MEDS: MINERAL OIL/PET HY-PHL TOPICAL OINTMENT 454 GM JAR TP SCH ×2 (09:53→21:26)
[2017-06-17] MEDS: HYDROCORTISONE 2.5% TOPICAL CREAM 30 GM TUBE TP SCH (09:53)
[2017-06-17] MEDS: NEOMYCIN/POLYMYXIN/BACITRACIN (TRIPLE ANTIBIOTIC) 28 GM OINTMENT TP SCH ×2 (09:53→21:26)
--- NOTE | 2017-06-17 20:13 | PN ---
Progress Note, Physician Chief Complaint: No new complaints - Current Medication List Current Medications: Active Medications Acetaminophen (Tylenol -) 325 mg PO QID PRN PRN Reason: PAIN Last Admin: 06/17/17 17:07 Dose: 325 mg Amiodarone HCl (Cordarone -) 200 mg PO DAILY [facility] Last Admin: 06/17/17 09:49 Dose: 200 mg Cephalexin HCl (Keflex -) 500 mg PO DAILY [facility] Last Admin: 06/17/17 09:49 Dose: 500 mg Diphenhydramine HCl (Benadryl Injection -) 12.5 mg IVPUSH Q4H PRN PRN Reason: FOR ITCHING Last Admin: 06/17/17 11:23 Dose: 12.5 mg Emollient Ointment (Aquaphor -) 1 applic TP BID [facility] Last Admin: 06/17/17 09:53 Dose: 1 applic Fentanyl (Duragesic 25mcg Patch -) 1 patch TD Q3D [facility] Last Admin: 06/17/17 09:57 Dose: 1 patch Hydrocortisone (Anusol 2.5% Hc Cream -) 1 applic TP DAILY [facility] Last Admin: 06/17/17 09:53 Dose: 1 applic Insulin Aspart (Novolog Vial Sliding Scale -) 1 vial SQ ACHS [facility] PRN Reason: Protocol Last Admin: 06/17/17 17:08 Dose: 4 units Lactulose (Cephulac (Oral Use)) 20 gm PO BID [facility] Last Admin: 06/17/17 09:51 Dose: 20 gm Levothyroxine Sodium (Synthroid -) 75 mcg PO DAILY@0700 [facility] Last Admin: 06/17/17 06:07 Dose: 75 mcg Megestrol Acetate (Megace Oral Suspension -) 400 mg PO BID [facility] Last Admin: 06/17/17 11:21 Dose: Not Given Midodrine (Proamatine -) 10 mg PO BID-MID [facility] Last Admin: 06/17/17 17:39 Dose: 10 mg Miscellaneous (Duragesic Patch Waste) 1 each TD PRN PRN PRN Reason: PAIN Multivit/Ca Carb/B Cmplx/FA/Prenat (Nephro-Adalberto -) 1 tablet PO DAILY [facility] Last Admin: 06/17/17 09:50 Dose: 1 tablet Neomycin/Polymyxin/Bacitracin (Neosporin Topical Ointment -) 1 applic TP BID [facility] Last Admin: 06/17/17 09:53 Dose: 1 applic Ondansetron HCl (Zofran -) 4 mg PO BID PRN Last Admin: 06/17/17 11:23 Dose: 4 mg Sevelamer Carbonate (Renvela -) 800 mg PO TIDCM [facility] Last Admin: 06/17/17 17:06 Dose: 800 mg Sodium Polystyrene Sulfonate (Kayexalate -) 15 gm PO MoWeFr@1000 [facility] Last Admin: 06/15/17 09:48 Dose: 15 gm Sucralfate (Carafate -) 1 gm PO BID [facility] Last Admin: 06/17/17 09:52 Dose: 1 gm - Objective Vital Signs: Vital Signs Temperature 98.2 F 06/17/17 10:00 Pulse Rate 118 H 06/17/17 10:00 Respiratory Rate 22 06/17/17 10:00 Blood Pressure 132/54 06/17/17 10:00 O2 Sat by Pulse Oximetry (%) 98 06/17/17 10:00 Constitutional: Yes: No Distress Cardiovascular: Yes: Regular Rate and Rhythm, S1, S2 Respiratory: Yes: Regular, CTA Bilaterally Gastrointestinal: Yes: Normal Bowel Sounds, Soft Neurological: Yes: Alert. No: Cran Nerves II-XII Intact ...Motor Strength: WNL Labs: CBC, BMP 06/14/17 11:22 06/14/17 11:20 INR, PTT INR 1.14 (0.82-1.09) 06/05/17 21:07 Problem List - Problems (1) ESRD (end stage renal disease) Assessment/Plan: HD as per renal Code(s): N18.6 - END STAGE RENAL DISEASE (2) Congestive heart failure Assessment/Plan: Volume status better Code(s): I50.9 - HEART FAILURE, UNSPECIFIED Qualifiers: Congestive heart failure type: combined Congestive heart failure chronicity : chronic Qualified Code(s): I50.42 - Chronic combined systolic (congestive) and diastolic (congestive) heart failure
[2017-06-18] MEDS: ACETAMINOPHEN 325 MG TABLET (FP) PO PRN ×3 (00:59→18:35)
[2017-06-18 02:12] VITALS: TEMP 97.5
[2017-06-18] MEDS: INSULIN SLIDING SCALE (NOVOLOG) 1 VIAL SQ SCH ×3 (06:24→18:35)
[2017-06-18] MEDS: LEVOTHYROXINE NA 75 MCG TABLET (FP) PO SCH (06:24)
[2017-06-18] MEDS: SEVELAMER CARBONATE 800 MG TAB (FP) PO SCH ×3 (08:13→18:05)
--- NOTE | 2017-06-18 10:52 | PN ---
Progress Note, Physician Chief Complaint: Restless Generalized weakness History of Present Illness: Patient was seen and examined. Awake and alert. Chart was reviewed Atrial fibrillation with rapid ventricular response. Await permacath insertion today and then HD - Current Medication List Current Medications: Active Medications Acetaminophen (Tylenol -) 325 mg PO QID PRN PRN Reason: PAIN Last Admin: 06/18/17 00:59 Dose: 325 mg Amiodarone HCl (Cordarone -) 200 mg PO DAILY [facility] Last Admin: 06/17/17 09:49 Dose: 200 mg Cephalexin HCl (Keflex -) 500 mg PO DAILY [facility] Last Admin: 06/17/17 09:49 Dose: 500 mg Diphenhydramine HCl (Benadryl Injection -) 12.5 mg IVPUSH Q4H PRN PRN Reason: FOR ITCHING Last Admin: 06/17/17 20:39 Dose: 12.5 mg Emollient Ointment (Aquaphor -) 1 applic TP BID [facility] Last Admin: 06/17/17 21:26 Dose: 1 applic Fentanyl (Duragesic 25mcg Patch -) 1 patch TD Q3D [facility] Last Admin: 06/17/17 09:57 Dose: 1 patch Hydrocortisone (Anusol 2.5% Hc Cream -) 1 applic TP DAILY [facility] Last Admin: 06/17/17 09:53 Dose: 1 applic Insulin Aspart (Novolog Vial Sliding Scale -) 1 vial SQ ACHS [facility] PRN Reason: Protocol Last Admin: 06/18/17 06:24 Dose: Not Given Lactulose (Cephulac (Oral Use)) 20 gm PO BID [facility] Last Admin: 06/17/17 21:26 Dose: 20 gm Levothyroxine Sodium (Synthroid -) 75 mcg PO DAILY@0700 [facility] Last Admin: 06/18/17 06:24 Dose: Not Given Megestrol Acetate (Megace Oral Suspension -) 400 mg PO BID [facility] Last Admin: 06/17/17 21:26 Dose: 400 mg Midodrine (Proamatine -) 10 mg PO BID-MID [facility] Last Admin: 06/17/17 17:39 Dose: 10 mg Miscellaneous (Duragesic Patch Waste) 1 each TD PRN PRN PRN Reason: PAIN Multivit/Ca Carb/B Cmplx/FA/Prenat (Nephro-Adalberto -) 1 tablet PO DAILY [facility] Last Admin: 12/10/17 09:50 Dose: 1 tablet Neomycin/Polymyxin/Bacitracin (Neosporin Topical Ointment -) 1 applic TP BID [facility] Last Admin: 06/17/17 21:26 Dose: 1 applic Ondansetron HCl (Zofran -) 4 mg PO BID PRN Last Admin: 06/17/17 11:23 Dose: 4 mg Sevelamer Carbonate (Renvela -) 800 mg PO TIDCM [facility] Last Admin: 06/18/17 08:13 Dose: Not Given Sodium Polystyrene Sulfonate (Kayexalate -) 15 gm PO MoWeFr@1000 [facility] Last Admin: 06/15/17 09:48 Dose: 15 gm Sucralfate (Carafate -) 1 gm PO BID [facility] Last Admin: 06/17/17 21:26 Dose: 1 gm - Objective Vital Signs: Vital Signs Temperature 97.5 F L 06/18/17 02:00 Pulse Rate 128 H 06/18/17 02:00 Respiratory Rate 18 06/18/17 02:00 Blood Pressure 151/85 06/18/17 02:00 O2 Sat by Pulse Oximetry (%) 98 06/17/17 22:00 Neck: Yes: Supple Cardiovascular: Yes: Tachycardia, Pulse Irregular, S1, S2 Respiratory: Yes: Diminished Gastrointestinal: Yes: Distention. No: Tenderness Edema: Yes Edema: LLE: 1+, RLE: 1+ Labs: CBC, BMP 06/14/17 11:22 06/14/17 11:20 Problem List - Problems (1) Ascites Code(s): R18.8 - OTHER ASCITES Qualifiers: Ascites type: other type Qualified Code(s): R18.8 - Other ascites (2) Cirrhosis Code(s): K74.60 - UNSPECIFIED CIRRHOSIS OF LIVER Qualifiers: Hepatic cirrhosis type: unspecified hepatic cirrhosis Ascites presence: with ascites Qualified Code(s): K74.60 - Unspecified cirrhosis of liver (3) ESRD (end stage renal disease) Code(s): N18.6 - END STAGE RENAL DISEASE (4) Generalized weakness Code(s): R53.1 - WEAKNESS (5) Anemia Code(s): D64.9 - ANEMIA, UNSPECIFIED Qualifiers: Anemia type: due to chronic kidney disease Chronic kidney disease stage: on chronic dialysis Qualified Code(s): N18.6 - End stage renal disease (6) Atrial fibrillation with rapid ventricular response Code(s): I48.91 - UNSPECIFIED ATRIAL FIBRILLATION (7) Congestive heart failure Code(s): I50.9 - HEART FAILURE, UNSPECIFIED Qualifiers: Congestive heart failure type: combined Congestive heart failure chronicity : chronic Qualified Code(s): I50.42 - Chronic combined systolic (congestive) and diastolic (congestive) heart failure (8) Coronary artery disease Code(s): I25.10 - ATHSCL HEART DISEASE OF [place] CORONARY ARTERY W/O ANG PCTRS Qualifiers: Coronary Disease-Associated Artery/Lesion type: [place] artery [place] vs. transplanted heart: [place] heart Associated angina: without angina Qualified Code(s): I25.10 - Atherosclerotic heart disease of [place] coronary artery without angina pectoris (9) Demand ischemia Code(s): I24.8 - OTHER FORMS OF ACUTE ISCHEMIC HEART DISEASE (10) Diabetes mellitus Code(s): E11.9 - TYPE 2 DIABETES MELLITUS WITHOUT COMPLICATIONS Qualifiers: Diabetes mellitus type: type 2 Diabetes mellitus complication status: with kidney complications Diabetes mellitus complication detail: with chronic kidney disease Diabetes mellitus fci insulin use: with fci use Chronic kidney disease stage: on chronic dialysis Qualified Code(s): E11.22 - Type 2 diabetes mellitus with diabetic chronic kidney disease; N18.6 - End stage renal disease; Z99.2 - Dependence on renal dialysis; Z99.2 - Dependence on renal dialysis; Z99.2 - Dependence on renal dialysis; N18.6 - End stage renal disease; N18.6 - End stage renal disease; N18.6 - End stage renal disease ; Z79.4 - gelatin maker utility (current) use of insulin; Z79.4 - gelatin maker utility (current) use of insulin; Z79.4 - gelatin maker utility (current) use of insulin; Z79.4 - penitentiary ( current) use of insulin; Z99.2 - Dependence on renal dialysis (11) HTN (hypertension) Code(s): I10 - ESSENTIAL (PRIMARY) HYPERTENSION Qualifiers: Hypertension type: essential hypertension Qualified Code(s): I10 - Essential (primary) hypertension (12) ICD (implantable cardioverter-defibrillator) in place Code(s): Z95.810 - PRESENCE OF AUTOMATIC (IMPLANTABLE) CARDIAC DEFIBRILLATOR (13) Ischemic dilated cardiomyopathy Code(s): I25.5 - ISCHEMIC CARDIOMYOPATHY (14) S/P CABG (coronary artery bypass graft) Code(s): Z95.1 - PRESENCE OF AORTOCORONARY BYPASS GRAFT (15) S/P coronary artery stent placement Code(s): Z95.5 - PRESENCE OF CORONARY ANGIOPLASTY IMPLANT AND GRAFT (16) Systolic and diastolic CHF, acute on chronic Code(s): I50.43 - ACUTE ON CHRONIC COMBINED SYSTOLIC AND DIASTOLIC HRT FAIL (17) Ventricular tachycardia Code(s): I47.2 - VENTRICULAR TACHYCARDIA Assessment/Plan 1. Thrombosed AV graft s/p percutaneous thrombectomy and venoplasty axillary vein 2. CAD post [place]/PCI(stent)/CABG, angina pectoris with history of demand ischemic injury 3. Ischemic dilated cardiomyopathy 4. Persistent atrial fibrillation, [id number] score of 4, with rapid ventricular response currently on no anticoagulation therapy 5. History of syncope referable to sustained VT/VF 6. Post Medtronic ICD implant 7. History of HTN - currently hypotensive on Midodrine therapy 8. DM 90. Hypothyroidism 10. ESRD on HD 11. Anemia and Thrombocytopenia 12. ESLD PLAN: 1. Ideally should be on Carvedilol and ACEI or ARBS therapies, but limitation is persistent symptomatic hypotension 2. Continue Amiodarone 200 qd 3. Coumadin was previously discontinued due to GI bleed. MAIRA occlusion device if clinically feasible to prevent stroke risk 4. Continue Midodrine 10 bid and further titration accordingly 5. HD after perma cath insertion today Further plans are to follow Carrington Woodruff MD
[2017-06-18] MEDS ORDERED: HEPARIN NA (PORCINE) 5,000 UNITS/ML 1ML VIAL SQ ONE (12:00)
[2017-06-18] MEDS: SUCRALFATE 1 GM TABLET (FP) PO SCH (12:19)
[2017-06-18] MEDS: LACTULOSE 20 GM/30 ML UDC (FOR ORAL USE ONLY) PO SCH (12:19)
[2017-06-18] MEDS: MEGESTROL ACETATE 400 MG/10 ML UNIT DOSE CUP PO SCH (12:20)
[2017-06-18] MEDS: MIDODRINE HCL 5 MG TABLET PO SCH ×2 (12:20→18:34)
[2017-06-18] MEDS ORDERED: PT OWN MED DRAWER 7, Y5N ONE ×2 (13:29→18:32)
[2017-06-18] MEDS: AMIODARONE HCL 200 MG TABLET (FP) PO SCH (13:52)
[2017-06-18] MEDS: CEPHALEXIN MONOHYDRATE 500 MG CAPSULE (UD) PO SCH (13:53)
[2017-06-18] MEDS: SODIUM POLYSTYRENE SULFONATE 15 GM/60 ML BOTTLE PO SCH (13:53)
[2017-06-18] MEDS: VITAMIN B COMP W-C 1 EA TABLET PO SCH (13:53)
[2017-06-18] MEDS: MINERAL OIL/PET HY-PHL TOPICAL OINTMENT 454 GM JAR TP SCH (13:58)
[2017-06-18] MEDS: HYDROCORTISONE 2.5% TOPICAL CREAM 30 GM TUBE TP SCH (13:58)
[2017-06-18] MEDS: NEOMYCIN/POLYMYXIN/BACITRACIN (TRIPLE ANTIBIOTIC) 28 GM OINTMENT TP SCH (13:59)
--- NOTE | 2017-06-18 14:33 | PN ---
Progress Note (short form) - Note Progress Note: CBC, BMP 06/14/17 11:22 06/14/17 11:20 Vital Signs Period Temp Pulse Resp BP Sys/Lopez Pulse Ox Last 24 Hr 97.7 F-98.5 F 53-146 16-22 75-212/45-81 100-100 S1S2 RRR lungs cta ant. abd soft distended +BS subcutenous edema persists pleurex removed abdominal excoriations no thrill, no bruit over right av graft IMP end stage cardiomyopathy with left and right heart failure cirrhosis ESRD hypotension paroxysmal afib IDDM awaiting perma cath placment today via IR hd afterwards physical therapy for ambulation wheelchair requested Problem List - Problems (1) Abdominal pain Code(s): R10.9 - UNSPECIFIED ABDOMINAL PAIN Qualifiers: Abdominal location: generalized Qualified Code(s): R10.84 - Generalized abdominal pain (2) Ascites Code(s): R18.8 - OTHER ASCITES Qualifiers: Ascites type: other type Qualified Code(s): R18.8 - Other ascites (3) Cirrhosis Code(s): K74.60 - UNSPECIFIED CIRRHOSIS OF LIVER Qualifiers: Hepatic cirrhosis type: unspecified hepatic cirrhosis Ascites presence: with ascites Qualified Code(s): K74.60 - Unspecified cirrhosis of liver (4) ESRD (end stage renal disease) Code(s): N18.6 - END STAGE RENAL DISEASE (5) Generalized weakness Code(s): R53.1 - WEAKNESS (6) Atrial fibrillation Code(s): I48.91 - UNSPECIFIED ATRIAL FIBRILLATION Qualifiers: Atrial fibrillation type: persistent Qualified Code(s): I48.1 - Persistent atrial fibrillation (7) Congestive heart failure Code(s): I50.9 - HEART FAILURE, UNSPECIFIED Qualifiers: Congestive heart failure type: combined Congestive heart failure chronicity : chronic Qualified Code(s): I50.42 - Chronic combined systolic (congestive) and diastolic (congestive) heart failure (8) Diabetes mellitus Code(s): E11.9 - TYPE 2 DIABETES MELLITUS WITHOUT COMPLICATIONS Qualifiers: Diabetes mellitus type: type 2 Diabetes mellitus complication status: with kidney complications Diabetes mellitus complication detail: with chronic kidney disease Diabetes mellitus senior care insulin use: with regional intermodal truck driver use Chronic kidney disease stage: on chronic dialysis Qualified Code(s): E11.22 - Type 2 diabetes mellitus with diabetic chronic kidney disease; N18.6 - End stage renal disease; Z99.2 - Dependence on renal dialysis; Z99.2 - Dependence on renal dialysis; Z99.2 - Dependence on renal dialysis; N18.6 - End stage renal disease; N18.6 - End stage renal disease; N18.6 - End stage renal disease ; Z79.4 - intermodal dispatcher (current) use of insulin; Z79.4 - intermodal dispatcher (current) use of insulin; Z79.4 - longterm (current) use of insulin; Z79.4 - longterm ( current) use of insulin; Z99.2 - Dependence on renal dialysis (9) ICD (implantable cardioverter-defibrillator) in place Code(s): Z95.810 - PRESENCE OF AUTOMATIC (IMPLANTABLE) CARDIAC DEFIBRILLATOR (10) Ischemic dilated cardiomyopathy Code(s): I25.5 - ISCHEMIC CARDIOMYOPATHY
[2017-06-18] MEDS: oxyCODONE HCL 5 MG TABLET PO PRN ×2 (14:54→18:34)
[2017-06-18] MEDS ORDERED: EPOETIN ALFA 10,000 UNIT/1 ML VIAL IVPUSH ONE (16:30)
[2017-06-18 19:02] VITALS: BP 106/43; PULSE 141
--- NOTE | 2017-06-18 21:26 | HOSP ---
Subjective - Review of Symptoms Subjective: Note Paged by nursing staff to examine pt and was explained by staff how patient had lost his pulse and stopped breathing. Nursing staff subsequently explained how pt was DNR/DNI at this time. Upon arriveal pt is unresponsive, even to painful stimuli, pupils are fixed and non-reactive to light. Pt has absent corneal reflexes. Pt has no spontaneous breathing, no heart sounds or breath sounds upon auscultation. Pt has no carotid pulses, radial pulses, and femoral pulses. Time of pronounced at 20:37 on June 18, 2017 Family was present and talked to by myself. Dr. Billings is being notified by the nursing staff Grievance services offered to family Body will be released as per family's wishes Arnaldo Coats DO - Internal Medicine PGY-1 Physical Examination Vital Signs: Vital Signs Temperature 97.5 F L 06/18/17 02:00 Pulse Rate 141 H 06/18/17 18:40 Respiratory Rate 18 06/18/17 18:40 Blood Pressure 106/43 06/18/17 18:40 O2 Sat by Pulse Oximetry (%) 93 L 06/18/17 09:00 Labs: CBC, BMP 06/14/17 11:22 06/14/17 11:20
--- NOTE | 2017-06-19 09:13 | DS ---
Discharge Summary Reason For Visit: HEPATIC CIRRHOSIS Hospital Course: admitted for generalized weakness, fluid overload and dyspnea. Long history of severe dilated cardiomyopathy, ESRD, IDDM, cirrhosis due to right heart failure with ascites. since his pleurex catheter was causing significant discomfort it was discontinued. during hospital stay his av graft clotted, he underwent declotting, but 2 days after procedure bruit and thrill faded likely due top chronic hypotension. received permacath to right anterior chest wall. discussed advanced directive with patient, he deferred decision to son but he also stated when it's his time to go, he will go. during this admission and previous admission we had long discussion with his son Filiberto and family regarding his advanced severe cardiac/hepatic and renal disease and agreed for do not resuscitate order. pTIENT ON 06.18.17 with his family at bedside. Condition: Stable - Instructions Referrals: Mandeep Sutton MD [Primary Care Provider] - Disposition: - Home Medications Comprehensive Discharge Medication List: Ambulatory Orders
== END 2017-06-18 23:10 | disposition expired | DRG 981 ==
LOC: JER 18:29 → JERBED 20:37 → J5S 06-06 08:57 → J4W 06-11 18:12 → J4S 06-13 19:20
PROVIDERS: ADMIT Internal Medicine; ATTEND Internal Medicine
PROC: 0WPG33Z Removal of Infusion Device from Peritoneal Cavity, Percutaneous Approach (ICD-10-PCS; 2017-06-11)
PROC: 0YH Anatomical Regions, Lower Extremities, Insertion (ICD-10-PCS; 2017-06-11)
PROC: 05C73ZZ Extirpation of Matter from Right Axillary Vein, Percutaneous Approach (ICD-10-PCS; principal; 2017-06-14 18:00)
PROC: 0XP Anatomical Regions, Upper Extremities, Removal (ICD-10-PCS; 2017-06-15)
PROC: 0YH Anatomical Regions, Lower Extremities, Insertion (ICD-10-PCS; 2017-06-18)
PROC: 5A1D90Z Performance of Urinary Filtration, Continuous, Greater than 18 hours Per Day (ICD-10-PCS; 2017-06-18)
DX: K74.60 Unspecified cirrhosis of liver (principal); N18.6 End stage renal disease; R18.8 Other ascites; I13.2 Hypertensive heart and chronic kidney disease with heart failure and with stage 5 chronic kidney disease, or end stage renal disease; I50.32 Chronic diastolic (congestive) heart failure; T82.868A Thrombosis due to vascular prosthetic devices, implants and grafts, initial encounter; I42.0 Dilated cardiomyopathy; I48.1 Persistent atrial fibrillation; E87.70 Fluid overload, unspecified; E11.22 Type 2 diabetes mellitus with diabetic chronic kidney disease; Z99.2 Dependence on renal dialysis; Y83.9 Surgical procedure, unspecified as the cause of abnormal reaction of the patient, or of later complication, without mention of misadventure at the time of the procedure; I95.9 Hypotension, unspecified; R10.9 Unspecified abdominal pain; R53.1 Weakness; Z95.810 Presence of automatic (implantable) cardiac defibrillator; D64.9 Anemia, unspecified; I25.119 Atherosclerotic heart disease of native coronary artery with unspecified angina pectoris; Z98.61 Coronary angioplasty status; Z95.1 Presence of aortocoronary bypass graft; D69.6 Thrombocytopenia, unspecified; Z79.4 Long term (current) use of insulin; E03.9 Hypothyroidism, unspecified
CPT/HCPCS: 36415; 36558; 49083; 71010-TC; 73502-TC-RT; 73610-TC-RT; 73630-TC-RT; 74176-TC; 76000-TC; 77001-TC; 80048; 80053; 82140; 82550; 83605; 83735; 83880; 84100; 84484; 85025; 85027; 85610; 86704; 86706; 86708; 86803; 86850; 86900; 86901; 87340; 93005; 93010; 94760; 97116-GP; 97161-GP; 99285-25; C1881; J0885; J1644